=== PATIENT | female | born 2000 | race Caucasian/White ===

== ENCOUNTER 2021-11-09 15:00 | Inpatient (IN) | payer MEDICAID, SELFPAY ==
[2021-11-09 15:29] VITALS: BP 122/80; PULSE 93; RESP 18; TEMP 36.6; O2SAT 94; BMI 38.6
[2021-11-09 15:30] VITALS: BMI 32.3
--- NOTE | 2021-11-09 16:10 | NURSING ---
Admitted to the rehab unit, very pleasant.
[2021-11-09 16:39] VITALS: O2SAT 92
[2021-11-09 19:50] VITALS: BP 140/91; PULSE 132; RESP 16; TEMP 36.9; O2SAT 97
[2021-11-09 22:00] VITALS: PULSE 136
[2021-11-09] MEDS: Sodium Chloride 0.65% 1 SPRAY SPRAY.BTL 2 SPRAY NASAL (22:13)
[2021-11-09] MEDS: Famotidine 20 MG Tablet PO (22:13)
[2021-11-09] MEDS: APIXABAN 5 MG TABLET PO (22:13)
[2021-11-09] MEDS: MELATONIN 3 MG TABLET PO (22:13)
[2021-11-09 22:17] VITALS: BP 122/85; PULSE 136
--- NOTE | 2021-11-09 23:00 | NURSING ---
DR KEMP NOTIFIED OF PT'S COUGH AND NEED FOR COUGH MEDICATION AND THAT SHE STATES SHE HAD [facility]. ORDERS GIVEN.
[2021-11-09] MEDS: guaiFENesin 10 ML UDC (200MG/10ML) PO (23:13)
[2021-11-10 07:55] VITALS: BP 121/59; PULSE 110; RESP 16; TEMP 36.3; O2SAT 96
[2021-11-10] MEDS: Sodium Chloride 0.65% 1 SPRAY SPRAY.BTL 2 SPRAY NASAL ×2 (08:14→21:28)
[2021-11-10] MEDS: Famotidine 20 MG Tablet PO ×2 (08:14→21:23)
[2021-11-10] MEDS: Venlafaxine HCl 75 MG Tablet PO (08:14)
[2021-11-10] MEDS: APIXABAN 5 MG TABLET PO ×2 (08:14→21:24)
--- NOTE | 2021-11-10 10:21 | PCM.HP.STD ---
HPI - General General Date of Admission: 11/09/21 HPI Narrative ALEYDA FERNÁNDEZ, is a 21 YO F with a PMH of obesity and asthma. On 08/03/21 she was admitted to [facility] and diagnosed with COVID 19 PNA. She subsequently developed ARDS. She had acute respiratory failure with hypoxia secondary to COVID-pneumonia/ARDS and was intubated on 08/13/21. She was transferred to [facility] on 08/14/21. She was intubated and mechanically ventilated for a prolonged period necessitating tracheostomy which was done on 09/21/21. She had BL pneumothoraces and had BL chest tubes. 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 She was transferred from [facility] to an LTAC ([facility]) on 10/06/21 but readmitted to [facility] on 10/13/21 for enlarging R pneumothorax. She had been weaned off the vent at [facility] and was on a trach mask from 40% - 80% FIO2). She increasing SOB and cough in CT chest on 10/23/21 showed progressive opacities. She was started on Cefepime/Vanco/Azithromycin and completed a 7 day course. Cefepime caused nausea and she was transitioned to Zosyn to complete the 7 day course. A repeat CXR on 10/30/21 was unchanged and showed persistent BL diffuse airspace disease and a persistent 4.6 x 3.2 cm mass. CTA on 11/01/21 was negative for PE but, showed a mild dilation of the pulmonary trunk consistent with pulmonary HTN. Oxygen requirements have been fluctuating with exercise and she has fibrotic lung disease. She has experienced recurrent pneumothoraces. The most recent chest tube was placed on 10/15/2021 and removed 10/25/2021. She has tachycardia at rest which worsens with even minimal exertion. An ECHO on 10/09 showed a normal EF. Decannulated on 10/23/21 Voriconazole for suspected Aspergillus was stopped on 09/01 because the Aspergillus antigen was only slightly positive and pulmonary felt she had an organizing PNA. CT chest on 10/23/21 showed increasing opacities so she was started on antibiotics. Needs a repeat chest CT in December and this has been scheduled for 01/04/22 at [facility] and will be followed that day by a pulmonary appt. She was treated at [place] with empiric antibiotics, baricitinib, deep sedation, paralytics, proning, remdesivir, inhaled epoprostenol and diuresis. [facility] Medical History (Updated 11/10/21 @ 14:[address] Randa Roblero DO) Anemia C. difficile enteritis DVT (deep venous thrombosis) History of COVID-19 History of malnutrition Hx of recurrent urinary tract infection Obesity Recurrent spontaneous pneumothorax Home Medications apixaban [Eliquis] 5 mg PO BID 11/09/21 [History Last Taken Unknown] famotidine 20 mg PO BID 11/09/21 [History Last Taken Unknown] hydroxyzine HCl 10 mg PO Q4H PRN 11/09/21 [History Last Taken Unknown] melatonin 3 mg PO QHS 11/09/21 [History Last Taken Unknown] simethicone 80 mg PO Q6H PRN 11/09/21 [History Last Taken Unknown] sodium chloride 2 spray INTRANASAL BID 11/09/21 [History Last Taken Unknown] venlafaxine 75 mg PO DAILY 11/09/21 [History Last Taken Unknown] Allergy/AdvReac Type Severity Reaction Status Date / Time No Known Allergies Allergy Verified 11/09/21 16:16 Family History (Updated 11/10/21 @ 11:[address] Randa Roblero DO) Mother Diabetes Grandmother Hypertension Leukemia Surgical History (Updated 11/10/21 @ 13:[address] Randa Roblero DO) History of placement of chest tube History of tracheostomy Social History (Updated 11/10/21 @ 13:[address] Randa Roblero DO) adopted: No household members: significant other housing: house number of children: 0 service: No current occupational status: unemployed history of recent travel: No do you think of yourself as: straight/heterosexual current gender identity: female Smoking Status: Never smoker alcohol intake: former details: rare ETOH prior to COVID infection in July 2021. 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 but this seems to have resolved ; Denies change in vision, diplopia, discharge from eye(s), double vision, itchy eyes or photophobia ENT HEENT: Reports change in voice, ear pain, epistaxis, hoarseness and rhinorrhea; Denies dental pain, dizziness, dysphagia, facial pain, hearing loss, neck pain or throat swelling Cardiovascular Cardiovascular: Reports dyspnea on exertion, easily tiring during activity, rapid heart rate and weakness in extremities; Denies abdominal pain, chest pain, claudication, clubbing, cold extremities, edema, erythema on extremities, leg edema or orthostatic symptoms Respiratory/Chest Respiratory/Chest: Reports cough, dyspnea on exertion and hoarseness; Denies chest tightness, nail bed cyanosis, pain on inspiration or pain with cough Genitourinary Genitourinary: Denies burning urination, difficulty urinating, urinary frequency, urinary hesitancy or urinary urgency Musculoskeletal Musculoskeletal: Reports muscle cramps, muscle weakness and neck pain; Denies radiating pain into limb, tingling or tremors Integumentary Integumentary: Denies alopecia, hirsutism, jaundice or wounds Neurologic Neurologic: Reports headache(s) and weakness; Denies abnormal hearing, abnormal movements, abnormal speech, burning sensations, confusion, dizziness, focal weakness, seizures, sensory deficit or vertigo Psychiatric Psychiatric: Reports depression and other Details: anxiety Told the SW she has been depressed for years but told me she is sleeping well and appetite is pretty good. Denies crying jags. ; Denies hallucinations, homicidal ideation, hopelessness, panic attacks, suicidal ideation or suicidal thoughts Endocrine Endocrinology: Reports deepening of the voice and fatigue Hematologic/Lymphatic Hematologic/Lymphatic: Reports anemia and easy bruising Allergic/Immunologic Allergic/Immunologic: Reports other Details: she has had asthma as a child but grew out of it Denies wheezing now Vital Signs Vital Signs Vital Signs: 11/09/21 15:29 11/09/21 16:39 11/09/21 19:50 Temperature 97.8 F 98.4 F Temperature Source Oral Temporal Pulse Rate 93 132 H Respiratory Rate 18 16 Respiratory Effort Respiratory Depth Respiratory Pattern Blood Pressure 122/80 H 140/91 H Blood Pressure Mean 94 107 Blood Pressure Source Monitor Monitor Blood Pressure Position Sitting Sitting Blood Pressure Location Left Arm Right Arm Pulse Ox 94 92 97 Oxygen Delivery Method Nasal Cannula Room Air Oxygen Flow Rate (L/min) 2 2 11/09/21 22:00 11/09/21 22:17 11/10/21 07:55 Temperature 97.4 F L Temperature Source Oral Pulse Rate 136 H 136 H 110 H Respiratory Rate 16 Respiratory Effort Short of Breath Respiratory Depth Shallow Respiratory Pattern Normal Blood Pressure 122/85 H 121/59 H Blood Pressure Mean 97 79 Blood Pressure Source Monitor Monitor Blood Pressure Position Sitting Semi-Fowlers Blood Pressure Location Right Arm Right Arm Pulse Ox 96 Oxygen Delivery Method Nasal Cannula Nasal Cannula Oxygen Flow Rate (L/min) 2 2 Weight Weight: 232 lb Body Mass Index (BMI) 38.6 Physical Exam Const alert, oriented x3 and no apparent distress Constitutional Narrative: Sitting in the recliner at the bedside. She is wearing O2. Not tachypneic and able to speak in full sentences. Making good eye contact and answering all the questions I ask her. She is upfront and appropriate. Affect is a little flat. General Appearance: cooperative, well kempt and well developed HEENT normocephalic, head/scalp atraumatic, hearing grossly normal bilaterally, external ears normal and EAC's normal HEENT Narrative: TM's are not red and have a good cone of light. There is mild serous otitis. EAC are normal. There is a small amount of cerumen in the ear canals......R>L. The MM are moist. she still has tonsils and there is no erythema or exudates in the posterior pharynx. Head and Scalp: Negative for cyanosis of lips/distal nose Face and Sinus: normal facial exam and other She has some tenderness with percussion of the frontal sinuses. Rhinorrhea is clear with some blood Nose: external nose normal Eyes PERRL, EOMs intact bilaterally, conjunctivae normal, no scleral icterus and normal visual aldana by confrontation General Eye: normal appearance of both eyes; Negative for exophthalmos or proptosis Neck No nuchal rigidity, no lymphadenopathy and No no JVD Neck Narrative: She has some spasm in the trapezius muscles at the trapezius ridge. General: trachea midline and tracheostomy present; Negative for lymphadenopathy or tracheal deviation Thyroid: thyroid normal Carotids: Negative for bruit Chest Chest: symmetrical chest wall rise Resp Resp Narrative: Decreased BS's throughout. Jake decreased in expiration. No wheezing. Crackles in the L base. Not tachypneic at rest. No conversational dyspnea. Coughing intermittently.......sounds moist but she swallows the sputum. Effort and Inspection: able to speak in complete sentences; Negative for respiratory distress or retractions Cardio regular rhythm, S1 normal heart sound, S2 normal heart sound, no murmurs, no rub and no gallops Rate: tachycardic GI normal to inspection, nondistended, normoactive bowel sounds, soft to palpation and non-tender Back/Spine no CVA tenderness and normal to inspection Extremity no calf tenderness and no pedal edema Extremity Narrative: Generalized weakness in all extremities with no focal findings. No sensory loss. General Extremity: no tenderness to palpation of joints or extremities; Negative for clubbing, cyanosis or pallor Skin Skin Narrative: She is pale General Skin Exam: no breakdown Rashes: no rashes Hair: normal Nails: normal Neuro oriented x3, CN's II-XII intact bilaterally, moves all extremities, no focal motor deficits, no sensory deficits noted and gait normal Psych mental status grossly normal, thought process normal, cooperative, speech normal, activity/motor behavior normal, denies hallucinations, denies homicidal ideation and denies suicidal ideation Appearance: grossly normal, appropriate and well kempt Attitude: calm Activity / Motor Behavior: appropriate eye contact; Negative for psychomotor agitation, psychomotor slowing or restless Speech: normal speech Mood & Affect: flat affect Assessment & Plan Assessment/Plan (1) Physical debility: (2) History of COVID-19: (3) Pulmonary fibrosis, postinflammatory: (4) Pulmonary HTN: (5) DVT (deep venous thrombosis): QUALIFIERS: DVT location: lower extremity (6) Chronic anticoagulation: (7) Post-COVID chronic cough: (8) Physical deconditioning: (9) Tachycardia: (10) Mass in chest: (11) Hx of recurrent urinary tract infection: (12) Anxiety with depression: (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 DC the Hydroxyzine.....has not been taking and denies feeling anxious since she has been discharged from the hospital GI prophylaxis with Pepcid 20 mg twice daily DVT prophylaxis not necessary. She is on apixaban 5 mg twice daily for right lower extremity DVT Follow up with pulmonary medicine and PCP following DC from [facility] AM lab including CMP, CBC, Mag and Phos Obtained most recent labs from [facility] Get a PA and LAT CXR so we have something to compare to if she gets more SOB or the cough increases We discussed getting a COVID vaccine with Aleyda and she is agreeable to receiving the vaccine. Will also speak to her boyfriend Flex about getting a vaccine. Aleyda and I talked about her lung function and discussed her current diagnoses. All questions were answered. I am concerned that she was intubated for over 30 days prior to getting a tracheostomy. She is at risk for tracheal stenosis going forward. She certainly may benefit from some counselling - she has been through a prolonged severe illness with many complications and will need to work through this and deal with the LT complications with the lungs post COVID PNA. Appointments postdischarge: 1. Dr. Bill Khan on 01/04/2022 at 1:45 PM in [place] at the lung care [facility] outpatient care 2. PCP will need to find a PCP. SW will give her a list of physicians accepting new patients to choose from. The pt lives in [place]. Unit Exclusion This patient is an acute care inpatient being housed in the excluded unit because of capacity issues related to the disaster or emergency.: Yes Charges/Coding Visit Charges Inpatient E&M: 91094 Init Hosp L3
[2021-11-10 13:58] VITALS: O2SAT 92
--- NOTE | 2021-11-10 14:57 | PCM.RU.PYE ---
Admission Information Primary Diagnosis:: Physical debility secondary to prolonged hospitalization for COVID-19 pneumonia with multiple complications Status Changes from Prescreening?: No changes Identified Actual Problem List:: DVT, Depression, Alteration in Sleep, Alteration in Nutrition, Mobility Impaired, Self Care Deficit, Know.Dfct/Disease Process, Know.Dfct of Medicaitons, Alteration/ Air Exchange and Alteration-Leisure Activ. Potential Problem List:: DVT, Bleeding, Infection, UTI, Aspiration, Falls, Skin Integrity and Depression Risk of Complications DVT: JEWELS Prajapati and - (She is on apixaban 5 mg twice daily for right lower extremity DVT) Bleeding: Monitor Lab Values, Nursing to Teach Precautions for anti-coagulation therapy., Wound, if applicable, to be assessed every shift. and Stroke patients assessed for lethargy or change in status. Infection: Clinical Staff to Monitor for S/S of infection: and S/S of infection include fever, redness, warmth, etc. Urinary Tract Infection: Monitor for frequency, burning, discomfort, or incontinence. and Nursing will obtain urine sample for urinalysis and C&S when ordered. Aspiration: Clinical staff will monitor for coughing, drooling, congestion., Speech will evaluate swallowing and dsyphasia. and Nursing will monitor patient swallowing during meals. Falls: Patient will be evaluated for Fall Precautions and Patient will be placed on Fall Precautions as indicated per protocol. Skin Breakdown: Nursing will assess skin daily using assessment tool. and Nursing will place on Skin Breakdown Precautions as indicated. Pain: Clinical staff will assess patient's pain level per protocol., Medications will be given, if needed, and the pain level reassessed. and Other methods: Massage, distraction, decrease stimulus, etc. used PRN. Plan of Care Patient requires physician specializing in physical medicine and rehab oversight to provide close medical supervision of rehab issues including: Pain Management, Sleep Problems, Bowel and Bladder, Medical and co-morbidity Management, DVT prophylaxis, Rehabilitation Leadership and Coordination of treatment team Patient needs Physical Therapy: For a minimum of 1 hour and At least 5 out of 7 days Patient needs Physical Therapy to improve:: Mobility, Strengthening, Transfers, Stretching, ROM, Endurance, Stairs, Gait and Balance Patient needs Occupational Therapy: For a minimum of 1 hour and At least 5 out of 7 days Patient needs Occupational Therapy to improve ADL's incl.: Eating, Grooming, Bathing, Dressing, Toileting, Toilet transfers, Community Reintegration, Higher functioning activities, Household tasks, Adaptive Equipment, Splinting and Other activities as determined Patient requires speech therapy: For a minimum of 1 hour and At least 5 out of 7 days Patient requires speech therapy for: Swallowing, Cognition, Language Skills and Compensatory Strategies Patient requires 24/ Rehabilitation Nursing for: Pain Issues, Identifying and preventing risk factors, Monitoring and reporting current medical conditions, Assisting with ambulation, transfer, and all ADL's, Teaching patients about disease process and medications, Family teaching, Providing safe environment, Bowel and Bladder Issues, Skin integrity and Medication Management Patient needs Coke Production Heater/ Case Management for: Discharge Planning, Arranging Home Equipment or Services and Family Interventions Patient needs Dietary and Nutrition Services for: Adequate Nutrition, Nutritional Supplements and Nutritional Education Goals Patient will remain: free from falls and or injury at time of discharge. Patient will perform bed mobility at: MOD I level of assist. Patient will complete transfers from bed to chair at: MOD I level of assist. Patient will ambulate: with LRD and - (350 feet at modified) Patient will complete upper body dressing at: MOD I level of assist. Patient will complete lower body dressing at: MOD I level of assist. Patient will complete toileting at: MOD I level of assist. Patient will perform bathing at: MOD I level of assist. Patient will complete grooming at: MOD I level of assist. Patient will complete home management skills at: MOD I level of assist. Patient will achieve: - (1 curb step and 2 regular steps with no handrail at standby assist...with oxygen in tow) Patient will have pain level of: of 3 or less Patient's skin will: remain intact Patient will receive: adequate nutrition. Discharge Planning Pt Prognosis for Sig. Practical Improv. w/in Reasonable Time: Good Estimated Length of stay (days): 21 Anticipated D/C Destination: Home w/ family or friends
[2021-11-10] MEDS: COVID-19 VACC, MRNA(PFIZER)/PF 30 MCG/0.3 ML SYRINGE IM (15:50)
--- NOTE | 2021-11-10 16:33 | CASEMGMT ---
Social Work Met with patient for initial assessment. Pt confirmed full code. Pt on FaceTime with jackeline' during assessment. Explained [employer] insurance with NRD 11/16 and continued stay is not guaranteed with each review. Explained Team meeting and offered for family to attend. Pt reported to having depression her whole life. Inquired for further details - asked pt to explain how she feels. Pt expressed she has lack of motivation to do things, reports normal energy, emotional/stress eating, no reports with trouble sleeping, but enjoys laying on couch watching TV, reports having no friend wrangell and only sometimes hanging out with jackeline's friends. Pt is interested in starting on antidepressant, but would like to talk to the Dr. further. Notified DrTeresa Inquired about having a PCP - pt denied. Provided PCP list and encouraged to select one for her to continue following up with after DC and managing ongoing medical care. Pt agreed. Inquired about any strained relationships. Pt replied, her parents. She explained, it's not that bad, but about a year ago pt decided to leave their zoroastrianism and parents did not approve. Pt started dating her boyfriend and got engaged about three months later (totaling 7 months engaged - no wedding plans at this time). Pt agreed to keep parents listed on contact sheet and to allow them to get medical information. Provided ongoing supportive listening. Offered continued support throughout stay. Pt appreciative. SW to continue to follow for support and DC planning. Niyah Cárdenas, JUN ECONOMIST RESEARCH ASSISTANT
[2021-11-10 17:40] VITALS: O2SAT 95
[2021-11-10 19:35] VITALS: BP 123/62; PULSE 102; RESP 18; TEMP 36.7; O2SAT 97
[2021-11-10] MEDS: Acetaminophen 325 MG Tablet 650 MG PO (20:18)
[2021-11-10] MEDS: MELATONIN 3 MG TABLET PO (21:23)
[2021-11-10] MEDS: guaiFENesin/D-Methorphan TAB.SR.12H 1 TABLET PO (21:23)
[2021-11-10] MEDS: Ipratropium Bromide 0.06% NASAL SPRAY 2 SPRAY NASAL (21:24)
[2021-11-10] MEDS: Arthritis Pain Compound 60 CLICK TUBE TOPICAL (21:26)
[2021-11-10 21:45] VITALS: PULSE 102; RESP 18
--- NOTE | 2021-11-11 03:34 | NURSING ---
Reviewed and agree with POTTERY MACHINE OPERATOR documentation and charting.
[2021-11-11 05:56] LABS: Basophil# 0.03 X10^3/uL; Basophil% 0.6 % (0-1); Eosinophil# 0.23 X10^3/uL; Eosinophils% 4.3 % (0-5); Hematocrit 34.4 % (37-47); Hemoglobin 10.8 g/dL (12.0-15.0); Lymphocyte % 27.8 % (19-41); Mean Corp Hgb Conc 31.4 g/dL (32-36); Mean Corpuscular Hgb 26.1 pg (27.0-32.0); Mean Corpuscular Volume 83.1 fL (81-99); Mean Platelet Vol. 10.2 fl (6.2-12.0); Monocyte# 0.57 X10^3/uL; Monocyte% 10.6 % (0-10); NRBC Flagged by Analyzer 0 % (0-5); Neutrophil # 3.03 X10^3/uL (2.7-7.7); Neutrophil % 56.1 % (47-70); Platelet Count 260 K/mm3 (150-450); RBC Distribution Width CV 14.1 % (11.6-14.6); RBC Distribution Width SD 42.5 fl (35.1-43.9); Red Blood Count 4.14 M/mm3 (4.2-5.4); White Blood Count 5.4 K/mm3 (4.4-11.0)
[2021-11-11 06:32] LABS: ALB/GLOB Ratio 0.9 RATIO (0.9-2.4); AST(SGOT) 25 U/L (15-37); Alanine Aminotransfer ALT/SGPT 57 U/L (13-56); Albumin, Serum 3.2 g/dL (3.2-5.0); Alkaline Phosphatase 40 U/L (45-117); Anion Gap 8 (5-15); BUN 9 mg/dL (7-18); BUN/Creat Ratio 17.6 RATIO (10-20); Chloride 106 mmol/L (98-107); Creatinine, Serum 0.51 mg/dL (0.55-1.02); EST Glomerular Filtration Rate 159 mL/min (>60); Est Glom Filt Rate - Afr Amer 192 mL/min (>60); Estimated Creatinine Clearance 155.69 ml/min; Globulin 3.6 g/dL (2.2-4.2); Glucose 91 mg/dL (74-106); Phosphorus 5.1 mg/dL (2.5-4.9); Potassium 3.6 mmol/L (3.5-5.1); Protein, Total 6.8 g/dL (6.4-8.2); Sodium Level 141 mmol/L (136-145)
[2021-11-11] MEDS: Ipratropium Bromide 0.06% NASAL SPRAY 2 SPRAY NASAL ×3 (06:38→21:43)
[2021-11-11] MEDS: guaiFENesin/Codeine 5 ML UDC PO ×2 (06:43→21:42)
[2021-11-11 07:47] VITALS: BP 117/58; PULSE 69; RESP 18; TEMP 36.5; O2SAT 98
[2021-11-11] MEDS: Acetaminophen 325 MG Tablet 650 MG PO ×2 (08:59→22:07)
[2021-11-11] MEDS: Sodium Chloride 0.65% 1 SPRAY SPRAY.BTL 2 SPRAY NASAL ×2 (09:01→21:42)
[2021-11-11] MEDS: Arthritis Pain Compound 60 CLICK TUBE TOPICAL ×2 (09:02→21:43)
[2021-11-11] MEDS: APIXABAN 5 MG TABLET PO ×2 (09:54→21:43)
[2021-11-11] MEDS: Venlafaxine HCl 75 MG Tablet PO (09:54)
[2021-11-11] MEDS: Famotidine 20 MG Tablet PO (09:55)
[2021-11-11] MEDS: guaiFENesin/D-Methorphan TAB.SR.12H 1 TABLET PO ×2 (09:55→21:43)
[2021-11-11 10:00] VITALS: RESP 18
--- NOTE | 2021-11-11 10:45 | PN_ITS ---
Progress Note AF BP is stable and normal. HR is coming down and was 69 at rest this AM but, still increasing with exercise. She is maintaining a saturation of 98% on 2 LPM at rest.....ill increase to 3-4 when exercising. Good intake yesterday. Slept well last night. She is c/o nausea today....she denies abd pain. the nausea mostly comes with a MAHARAJ. She has no hx of migraines. she has a lot of tenderness in the traps and muscle spasm. I reviewed the therapy notes. No problems from nursing standpoint. All lab was personally reviewed. Kidney function is good and the HGB is 10.8. Physical Exam Const alert, oriented x3 and no apparent distress Constitutional Narrative: Fatigues easily. She is pale. Voice is hoarse and soft. Denies any difficulty swallowing. General Appearance: cooperative HEENT hearing grossly normal bilaterally and moist oral mucous membranes Eyes conjunctivae normal and no scleral icterus Resp Resp Narrative: No accessory muscle use and no tachypnea at rest. Gets SOB with ambulation, brandon with a mask on and the heart rate increases into the 150's - 160's. Tachypneic after exercise but still no accessory muscle use. Decreased air exchange, brandon with expiration......she is pursed lipped with expiration. No wheezing. Few coarse crackles in the left base but otherwise CTA. Effort and Inspection: able to speak in complete sentences Cardio regular rhythm, S1 normal heart sound, S2 normal heart sound, no murmurs, no rub and no gallops Cardio Narrative: no ectopy Rate: tachycardic GI normal to inspection, nondistended, normoactive bowel sounds, soft to palpation and non-tender Extremity no calf tenderness and no pedal edema Extremity Narrative: At the end of the day she has a small amount of edema in the R foot/ankle....this is most likely due to the DVT RLE. I encouraged her to elevate her leg when she is sitting in the chair and continue to wear the JEWELS hose any time she is out of bed or her legs are dependent. Psych mental status grossly normal, thought process normal, cooperative, denies homici mukesh ideation and denies suicidal ideation Psych Narrative: not very emotional......seems reserved. Activity / Motor Behavior: Negative for psychomotor agitation, psychomotor slowing, fidgetting, restless or avoids eye contact Assessment & Plan Assessment/Plan (1) History of COVID-19: (2) Physical debility: PLAN: 1. Add Compazine to the PRN meds for nausea. 2. Continue therapy 3. Check a Hemoccult stool May need to increase the Pepcid to 40 mg BID or transition to a PPI. She also had nausea at [facility] and they though it was due to Cefepime but, it is not unreasonable to suspect she may have stress ulceration. 4. The accurate height was put in and the BMI is actually 32.4 now. 5. Continue the soft collar with therapy until the neck muscles are stronger and can support the weight of her head. She does not have to wear the collar if she is lying down. e Visit Charges Inpatient E&M: 60886 Subs Hosp L2
[2021-11-11 10:57] VITALS: BMI 32.3
[2021-11-11 12:19] VITALS: O2SAT 97
[2021-11-11 16:06] VITALS: O2SAT 96
[2021-11-11 19:33] VITALS: BP 118/78; PULSE 120; RESP 20; TEMP 36.9; O2SAT 95
[2021-11-11] MEDS: MELATONIN 3 MG TABLET PO (21:43)
[2021-11-11 22:00] VITALS: PULSE 103; RESP 18
[2021-11-12] MEDS: Ipratropium Bromide 0.06% NASAL SPRAY 2 SPRAY NASAL ×3 (05:31→22:47)
[2021-11-12 07:40] VITALS: BP 108/58; PULSE 105; RESP 18; TEMP 36.5; O2SAT 97
[2021-11-12 08:03] VITALS: O2SAT 95
--- NOTE | 2021-11-12 08:45 | NURSING ---
pt working with occupational therapy at this time and pt lost balance in room. pt assisted to knees by TALENT MANAGEMENT MANAGER. no injury. Dr. Roblero, Nursing extra gang supervisor, Sallie- unit technician, and family notified of event. pt denies pain or discomfort. vitals taken, stable. will continue to monitor.
[2021-11-12] MEDS: APIXABAN 5 MG TABLET PO ×2 (11:07→22:47)
[2021-11-12] MEDS: Venlafaxine HCl 75 MG Tablet PO (11:07)
[2021-11-12] MEDS: Arthritis Pain Compound 60 CLICK TUBE TOPICAL ×2 (11:07→22:48)
[2021-11-12] MEDS: Sodium Chloride 0.65% 1 SPRAY SPRAY.BTL 2 SPRAY NASAL ×2 (11:08→22:47)
[2021-11-12] MEDS: guaiFENesin/D-Methorphan TAB.SR.12H 1 TABLET PO ×2 (11:08→22:47)
[2021-11-12 11:51] VITALS: BP 153/79; PULSE 153; RESP 20; O2SAT 86
[2021-11-12] MEDS: proCHLORPERazine 5 MG Tablet 10 MG PO (12:36)
[2021-11-12] MEDS: Acetaminophen 325 MG Tablet 650 MG PO (12:36)
--- NOTE | 2021-11-12 13:56 | CASEMGMT ---
Social Work IDT met with patient, fiance' and pt's parents for Team meeting. Discussed patients progress in PT/OT/ST and nursing. Pt progressing well, but apparent deficits. Pt was completely independent and functioning without an AD, O2 or any restrictions prior. The goal is for pt to DC once returned to PLOF and off of O2. Explained [employer] NRD 11/16 and continued stay is not guaranteed. SW to continue to follow for support and DC planning. Will Reteam next week. Niyah Cárdenas, TOBACCO STRIPPER GROUND HAND
[2021-11-12 15:01] VITALS: O2SAT 97
[2021-11-12 19:22] VITALS: BP 137/84; PULSE 113; RESP 18; TEMP 36.7; O2SAT 97
[2021-11-12] MEDS: 0.9% Saline Lock 10 ML Syringe IV ×2 (22:46)
[2021-11-12] MEDS: MELATONIN 3 MG TABLET PO (22:47)
[2021-11-13] MEDS: Ipratropium Bromide 0.06% NASAL SPRAY 2 SPRAY NASAL ×3 (06:23→20:22)
[2021-11-13 07:41] VITALS: BP 123/85; PULSE 118; RESP 22; TEMP 35.9; O2SAT 95
[2021-11-13 08:08] VITALS: O2SAT 89
[2021-11-13] MEDS: guaiFENesin/D-Methorphan TAB.SR.12H 1 TABLET PO ×2 (11:10→20:23)
[2021-11-13] MEDS: APIXABAN 5 MG TABLET PO ×2 (11:10→20:23)
[2021-11-13] MEDS: Sodium Chloride 0.65% 1 SPRAY SPRAY.BTL 2 SPRAY NASAL ×2 (11:10→20:23)
[2021-11-13] MEDS: Arthritis Pain Compound 60 CLICK TUBE TOPICAL ×2 (11:10→20:22)
[2021-11-13] MEDS: Venlafaxine HCl 75 MG Tablet PO (11:10)
--- NOTE | 2021-11-13 11:21 | PN_ITS ---
Progress Note This is a late entry for 11/12/21. Aleyda was seen on team rounds yesterday, 11/12/2021. Her boyfriend Flex and her parents Suzanne and Yakov were present in the room. All questions asked for answered to the family's satisfaction. Aleyda is afebrile and the vital signs are stable. She is tachycardic.......it was worst when she went outside and she thinks it is because she can not breathe well with the mask on and she gets panicky. Good oral intake Aleyda c/o SOB with exertion and when she has the mask on. The nausea has improved with the Protonix 40 mg IV BID. She is also c/o MAHARAJ and neck pain. The neck pain is better with the arthritic cream. Physical Exam Const alert, oriented x3 and no apparent distress Constitutional Narrative: she is hoarse and voice not projecting well. Fatigues easily and therapy is gradually increasing her activity. Desaturated to low 80's and HR went up to 200 while she had the mask on to go outside. she improved when the mask was removed once she was outside.......it is harder for her to breathe when the mask is on her face. She is somewhat pale. General Appearance: cooperative, well kempt and well developed Nutritional Appearance: obese HEENT hearing grossly normal bilaterally and moist oral mucous membranes Eyes conjunctivae normal and no scleral icterus Chest Chest: symmetrical chest wall rise Resp Resp Narrative: Not tachypneic at rest and she is able to speak in complete sentences. + coarse persistent crackles in the left base. decreased air exchange but no wheezing. No retractions and no tripoding......even with exertion while in doors with the mask on Cardio regular rhythm, S1 normal heart sound, S2 normal heart sound, no murmurs, no rub and no gallops Rate: tachycardic GI normal to inspection, nondistended, normoactive bowel sounds, soft to palpation and non-tender Extremity no calf tenderness and no pedal edema Skin General Skin Exam: no breakdown Rashes: no rashes Psych Psych Narrative: She is soft spoken and a little flat but very pleasant and cooperative. she makes good eye contact. Assessment & Plan Assessment/Plan (1) History of COVID-19: (2) Chronic anticoagulation: (3) Physical deconditioning: (4) Tachycardia: (5) Mass in chest: (6) Anxiety with depression: (7) DVT (deep venous thrombosis): QUALIFIERS: DVT location: lower extremity (8) Pulmonary HTN: (9) Pulmonary fibrosis, postinflammatory: (10) Physical debility: PLAN: 1. Continue therapy. 2. Consider starting a cardioselective beta kasey to better control HR and improve exercise tolerance. 3. OK to take the mask off when she is inside. 4. Effexor XR increased to 150 mg Q AM for tx of anxiety and long standing depression that preceded the COVID infx. there is some discord in the family about her BF Flex and she has been living with Flex and his parents rather than her family because of the this. 5. Follow up with pulmonology post DC. She would rather be seen in [place] rather than have to go to [facility]. Dr. Lee is willing to take her on as a pt. Visit Charges Inpatient E&M: 06064 Subs Hosp L2
[2021-11-13] MEDS: Acetaminophen 325 MG Tablet 650 MG PO ×2 (12:07→20:30)
[2021-11-13] MEDS: MELATONIN 3 MG TABLET PO (20:23)
[2021-11-13 20:25] VITALS: BP 133/52; PULSE 108; RESP 20; TEMP 36.6; O2SAT 98
[2021-11-14] VITALS (7 sets, daily range): BP systolic 109–122; BP diastolic 67; PULSE 100–129; RESP 18–20; TEMP 35.9–36.6; O2SAT 94–99
[2021-11-14] MEDS: Ipratropium Bromide 0.06% NASAL SPRAY 2 SPRAY NASAL ×3 (06:27→22:26)
[2021-11-14] MEDS: Venlafaxine HCl 75 MG Tablet PO (07:55)
[2021-11-14] MEDS: Arthritis Pain Compound 60 CLICK TUBE TOPICAL ×2 (07:55→22:27)
[2021-11-14] MEDS: Sodium Chloride 0.65% 1 SPRAY SPRAY.BTL 2 SPRAY NASAL ×2 (07:55→22:25)
[2021-11-14] MEDS: APIXABAN 5 MG TABLET PO ×2 (07:55→22:27)
[2021-11-14] MEDS: guaiFENesin/D-Methorphan TAB.SR.12H 1 TABLET PO ×2 (07:55→22:27)
[2021-11-14] MEDS: Pantoprazole Sodium 40 MG Tablet PO (09:34)
[2021-11-14] MEDS: MELATONIN 3 MG TABLET PO (22:27)
[2021-11-15] MEDS: Ipratropium Bromide 0.06% NASAL SPRAY 2 SPRAY NASAL ×3 (05:09→20:50)
[2021-11-15] MEDS: Sodium Chloride 0.65% 1 SPRAY SPRAY.BTL 2 SPRAY NASAL ×2 (07:32→20:51)
[2021-11-15] MEDS: APIXABAN 5 MG TABLET PO ×2 (07:33→20:50)
[2021-11-15] MEDS: guaiFENesin/D-Methorphan TAB.SR.12H 1 TABLET PO ×2 (07:33→20:51)
[2021-11-15] MEDS: Arthritis Pain Compound 60 CLICK TUBE TOPICAL ×2 (07:33→20:50)
[2021-11-15] MEDS: Pantoprazole Sodium 40 MG Tablet PO (07:33)
[2021-11-15] MEDS: Venlafaxine HCl 75 MG Tablet PO (07:34)
[2021-11-15 08:03] VITALS: BP 119/73; PULSE 100; RESP 18; TEMP 37.1; O2SAT 98
[2021-11-15 08:05] VITALS: O2SAT 95
--- NOTE | 2021-11-15 12:09 | PCM.PN.BLA ---
Progress Note Afebrile VSS - BP is WNL Maintaining appropriate oxygen saturation on RA Oral intake is good Discussed with nursing - no problems that need addressed Reviewed the PT/OT/ST notes. HR up to 147 with exercise yesterday. HR at rest hovers around 100. Today she feels like the HR increase has been blunted by the Metoprolol. She denies lightheadedness. Denies neck pain or MAHARAJ. Medication list reviewed. No calf pain, lightheadedness, No cephalgia, no nausea, no hemoptysis. The cough is less......increased yesterday and had more mucous after eating an ice cream sandwich. Less hoarse today and the voice is stronger and projecting better. Physical Exam Const alert, oriented x3 and no apparent distress General Appearance: cooperative and comfortable HEENT moist oral mucous membranes Eyes conjunctivae normal and no scleral icterus Neck Neck Narrative: no pain with palpation of the shoulders/trapezius ridge today. Holding her head upright and she is standing straight up when ambulating today. General: trachea midline; Negative for anterior neck swelling Chest Chest: symmetrical chest wall rise Resp Resp Narrative: Better air exchange than at admission....brandon with expiration. No wheezing. very minimal crackles in the left base now...... they do not go away after several deep breaths. No conversational dyspnea. Not tachypneic at rest. Cardio regular rhythm, no murmurs, no rub and no gallops Rate: tachycardic GI normal to inspection, nondistended, normoactive bowel sounds, soft to palpation and non-tender Extremity no calf tenderness and no pedal edema Skin General Skin Exam: no breakdown Rashes: no rashes Psych mental status grossly normal and thought process normal Psych Narrative: smiling and pleasant. Appearance: appropriate Activity / Motor Behavior: Negative for psychomotor agitation, psychomotor slowing, fidgetting, hyperactive, disorganized or restless Speech: normal speech Mood & Affect: constricted affect Assessment & Plan Assessment/Plan (1) Chronic anticoagulation: (2) History of COVID-19: (3) Post-COVID chronic cough: (4) Tachycardia: (5) Physical deconditioning: (6) Anxiety with depression: (7) DVT (deep venous thrombosis): QUALIFIERS: DVT location: lower extremity (8) Physical debility: (9) Pulmonary HTN: (10) Pulmonary fibrosis, postinflammatory: PLAN: 1. Continue the Metoprolol.......she felt less SOB with ambulating today. PT will check the pulse ox with exertion and also the HR. 2. Recheck an HH in the AM 3. Follow up with Pulmonary as OP 4. Visit Charges Inpatient E&M: 14402 Subs Hosp L1
[2021-11-15 14:25] VITALS: BP 110/78; PULSE 117
[2021-11-15] MEDS: Metoprolol Tartrate 25 MG Tablet PO (14:25)
[2021-11-15 19:21] VITALS: BP 120/64; PULSE 118; RESP 17; TEMP 36.1; O2SAT 96
[2021-11-15 20:33] VITALS: PULSE 108; RESP 20
[2021-11-15] MEDS: MELATONIN 3 MG TABLET PO (20:51)
[2021-11-16] MEDS: Ipratropium Bromide 0.06% NASAL SPRAY 2 SPRAY NASAL ×3 (05:41→21:57)
[2021-11-16 06:57] VITALS: BP 144/77; PULSE 123
[2021-11-16] MEDS: Metoprolol Tartrate 25 MG Tablet PO ×2 (06:57→15:31)
[2021-11-16 07:42] VITALS: BP 115/71; PULSE 123; RESP 24; TEMP 36.2; O2SAT 91
[2021-11-16] MEDS: APIXABAN 5 MG TABLET PO ×2 (09:03→21:57)
[2021-11-16] MEDS: Pantoprazole Sodium 40 MG Tablet PO (09:03)
[2021-11-16] MEDS: guaiFENesin/D-Methorphan TAB.SR.12H 1 TABLET PO ×2 (09:03→21:57)
[2021-11-16] MEDS: Sodium Chloride 0.65% 1 SPRAY SPRAY.BTL 2 SPRAY NASAL ×2 (09:03→21:57)
[2021-11-16] MEDS: Arthritis Pain Compound 60 CLICK TUBE TOPICAL ×2 (09:03→21:56)
[2021-11-16] MEDS: Venlafaxine XR 150 MG Capsule PO (09:06)
--- NOTE | 2021-11-16 14:09 | CASEMGMT ---
Addendum entered by Niyah Cárdenas 11/18/21 14:26: Received call from [facility] that they do not have cane in stock and will not arrive in time to order for pt DC. Spoke with [facility] and they have a cane in stock. Faxed script. Spoke with pt and updated her for family to lemon picker cane prior to DC. Pt expressed understanding. Addendum entered by Niyah Cárdenas 11/17/21 15:48: Pt requiring cane - referred to [facility], and left AFO for foot drop - referred to [facility]. Addendum entered by Niyah Cárdenas 11/16/21 15:08: Referral made to [facility] and [facility] for the O2. Original Note: Social Work Discussed pts progress with Team and pts request to DC 11/19. Team agreeable. states pt would DC home with O2 and recommending outpatient therapy. Met with patient about request to DC 11/19 and IDT agreeable. Pt agreeable to complete outpatient PT/OT/ST at [email or web address]. Will determine DME needs if pt is safely able to transition to cane from walker. SW to order O2 at home. Pt expressed understanding. Plan: DC home 11/19 with O2, [email or web address] PT/OT/ST JUN [facility]
[2021-11-16 14:51] VITALS: O2SAT 97
[2021-11-16 15:31] VITALS: PULSE 113
--- NOTE | 2021-11-16 18:24 | NURSING ---
Reviewed and agree with [facility] charting and documentation
[2021-11-16 19:18] VITALS: BP 118/70; PULSE 108; RESP 20; TEMP 36.1
[2021-11-16] MEDS: MELATONIN 3 MG TABLET PO (21:57)
[2021-11-16 22:00] VITALS: PULSE 109; RESP 20
[2021-11-17] MEDS: Ipratropium Bromide 0.06% NASAL SPRAY 2 SPRAY NASAL ×3 (05:55→20:20)
[2021-11-17 06:00] VITALS: PULSE 100
[2021-11-17] MEDS: Metoprolol Tartrate 25 MG Tablet PO ×2 (06:00→15:39)
[2021-11-17 06:05] LABS: Hematocrit 36.4 % (37-47); Hemoglobin 11.3 g/dL (12.0-15.0)
[2021-11-17 07:19] VITALS: BP 105/64; PULSE 100; RESP 16; TEMP 36.4; O2SAT 97
[2021-11-17] MEDS: Pantoprazole Sodium 40 MG Tablet PO (07:44)
[2021-11-17] MEDS: Venlafaxine XR 150 MG Capsule PO (07:44)
[2021-11-17] MEDS: guaiFENesin/D-Methorphan TAB.SR.12H 1 TABLET PO ×2 (07:44→20:22)
[2021-11-17] MEDS: APIXABAN 5 MG TABLET PO ×2 (07:44→20:21)
[2021-11-17] MEDS: Sodium Chloride 0.65% 1 SPRAY SPRAY.BTL 2 SPRAY NASAL ×2 (07:44→20:22)
[2021-11-17] MEDS: Arthritis Pain Compound 60 CLICK TUBE TOPICAL ×2 (08:02→20:20)
[2021-11-17 09:13] VITALS: O2SAT 97
[2021-11-17 15:39] VITALS: BP 123/60; PULSE 103
[2021-11-17] MEDS: MELATONIN 3 MG TABLET PO (20:22)
[2021-11-17 20:32] VITALS: BP 123/60; PULSE 109; RESP 20; TEMP 36.7; O2SAT 96
[2021-11-17 20:36] VITALS: PULSE 109; RESP 20
[2021-11-18] VITALS (7 sets, daily range): BP systolic 100–108; BP diastolic 48–54; PULSE 73–105; RESP 15–18; TEMP 35.9–36.6; O2SAT 94–99
[2021-11-18] MEDS: Ipratropium Bromide 0.06% NASAL SPRAY 2 SPRAY NASAL ×3 (06:52→20:53)
[2021-11-18] MEDS: Metoprolol Tartrate 25 MG Tablet PO ×2 (06:55→15:05)
[2021-11-18] MEDS: Pantoprazole Sodium 40 MG Tablet PO (09:13)
[2021-11-18] MEDS: Sodium Chloride 0.65% 1 SPRAY SPRAY.BTL 2 SPRAY NASAL ×2 (09:13→20:54)
[2021-11-18] MEDS: Arthritis Pain Compound 60 CLICK TUBE TOPICAL ×2 (09:13→20:54)
[2021-11-18] MEDS: APIXABAN 5 MG TABLET PO ×2 (09:13→20:54)
[2021-11-18] MEDS: Venlafaxine XR 150 MG Capsule PO (09:13)
[2021-11-18] MEDS: guaiFENesin/D-Methorphan TAB.SR.12H 1 TABLET PO ×2 (09:13→20:54)
--- NOTE | 2021-11-18 12:52 | PN_ITS ---
Progress Note Afebrile VSS-the heart rate has improved with the addition of metoprolol to her drug regimen and her heart rate today is in the 90s. HR is in the 130's now with exercise and not 147-200 as it was earlier in the admission. Maintaining appropriate oxygen saturation on 2 LPM at rest and we increase to 4 LPM with exercise and yesterday the pulse ox with exercise was 96%. Oral intake is good Discussed with nursing - no problems that need addressed Reviewed the PT/OT/ST notes Medication list reviewed. No complaints today and she feels less SOB with exertion since the beta kasey was started. No CP and the cough is much improved. It increases and so do the secretions when she eats dairy. Physical Exam Const alert, oriented x3, no apparent distress and well nourished Constitutional Narrative: smiling, making good eye contact. Excited about going home tomorrow. General Appearance: cooperative and comfortable HEENT moist oral mucous membranes Eyes PERRL, EOMs intact bilaterally, conjunctivae normal and no scleral icterus Resp Resp Narrative: Normal respiratory effort at rest. Better air exchange since admission. She is able to speak in complete sentences at rest and is not tachypneic. Appears comfortable on 2 L/min of nasal O2. Trace crackles in the left base but otherwise clear to auscultation. Infrequent cough. Cardio regular rate, regular rhythm, no murmurs, no rub and no gallops Rate: other Other Details: Tachycardic with exertion but this is improved since admission. GI normal to inspection, nondistended, normoactive bowel sounds, soft to palpation and non-tender GI Narrative: No guarding with palpation and denies nausea. Extremity no calf tenderness Extremity Narrative: Trace edema of the right foot, more likely than not secondary to known DVT for which she is on apixaban. General Extremity: Negative for clubbing or cyanosis Skin General Skin Exam: no breakdown Rashes: no rashes Psych mental status grossly normal, thought process normal and cooperative Activity / Motor Behavior: appropriate eye contact; Negative for psychomotor bradley tation or psychomotor slowing Speech: normal speech Mood & Affect: other smiling and more outgoing and talkative than at admission to the rehab unit Assessment & Plan Assessment/Plan (1) Chronic anticoagulation: (2) History of COVID-19: (3) Physical deconditioning: (4) Tachycardia: (5) Anxiety with depression: (6) DVT (deep venous thrombosis): QUALIFIERS: DVT location: lower extremity (7) Pulmonary fibrosis, postinflammatory: (8) Physical debility: PLAN: Plan DC home tomorrow. Home O2 has been arranged by the SW. Will need ongoing therapy. Follow up with pulmonary medicine. Needs a venous US of the RLE post DC to determine if the clot is still there.......sometime in December so she has at least 3 months of anticoagulation. Continue the Effexor at 150 mg XR daily for at least 6 months and then can taper if she is doing well. Visit Charges Inpatient E&M: 80857 Subs Hosp L2
--- NOTE | 2021-11-18 14:50 | DCINST_ITS ---
Discharge Instructions Diet Discharge Diet: - (Regular diet. No added salt on any foods. The salt will increase swelling in the lungs and cause fluid retention which will make the breathing harder. Keeping your weight down will also make it easier for you to breath, brandon with exertion. ) Activity Discharge Activity: May Not Drive, May Shower and - (You must keep active.......do some exercise every day. This will help your heart and lungs function better and you will have better exercise tolerance. You must balance rest and exercise. ) May resume sexual activity in: - (When you are ready. Take your time.......your lungs are not what they used to be and it may be uncomfortable and anxiety provoking if you are not completely ready. ) Weight Bearing Status: Full weight bearing Lifting Restrictions: no more than 5-10 lbs Keep extremity elevated above heart level: Right Leg Additional Activity Instructions:: the blood clots are causing some swelling of the R foot and keeping it elevated when you are sitting will help control the swelling. So will the white stockings. Dressing / Incision Call your doctor if you observe: Fever of 101 or Higher, Inability to urinate, Inability to have a bowel movement, Shortness of breath (shortness of breath worse than what is your baseline now. ), Dizziness, Fainting spells, Swelling in the ankles, Chest pain, Increased palpitations (irregular heartbeat), Calf discomfort and - (Call your family doctor if any unusual bleeding such as bleeding from the gums, blood from the anus, blood in the urine, nose bleeds, large bruises or bleeding from the vagina if female. ) Follow Up Care Please Follow Up With: PCP When: within 7-10 days after DC. Test Results: Test results from this visit will be discussed in further detail at your follow-up appointment, if applicable. Pending Tests Upon Discharge: none Discharge Plan Admission Admit Date/Time: 11/09/21 15:00 Primary Reason for Your Visit: DEbility due to COVID PNA with prolonged intubation and hospitalization. Attending Provider: Randa Roblero Instructions Patient Instructions: Pulmonary Fibrosis, Chronic Lung Disease Nutrition Additional Instructions / Restrictions: 1. Do not be in a carter to get back to the place you were prior to COVID. Do the exercises given to you by the therapists at least once a day. Balance rest and exercise. Your lungs have been affected by the virus and all the inflammation you had. If you get tired or short of breath take a break and then start again. 2. It is very important that you follow up with a lung specialist. We have made an appt for you to see Dr. Ric Lee at the hospital here. He is a lung specialist and he also works in the ICU so he has taken care of many post COVID patients with lung problems. The last CT chest you had showed a mass on the R side......I suspect this is just a clump of scar tissue but, it needs to be followed with additional CT's to make sure it is not changing. 3. You had the first COVID vaccine. You will need a second shot and the date should be on the card you received. 6 months after the second shot you will need a booster. When you have lung disease even a cold can land you in the hosp ital so STAY AWAY from sick people. Always wear a mask when you are out in public. There are vaccines for the flu and also a vaccine for Pneumococcal pneumonia (Pneumovax). I recommend you get them because if you get the flu or pneumonia you will more than likely need to be admitted to the hospital. Dr. Lee and Dr. Mendoza (PCP) will likely discuss this with you also. 4. You have pulmonary fibrosis and the BP in your lungs is high. Fibrosis is scarring and it is not reversible.....you have to learn how to live within your limits and wear oxygen now. 5. Excess weight puts a strain on your lungs so stay at a healthy weight. Dairy tens to make more mucous and this can obstruct the airways making it harder to breath. If you have increased sputum with dairy you may want to limit the amount of dairy products you consume. Small meals are better than large meals because when you eat blood gets diverted to your GI tract to digest the food and it takes blood flow away from the heart and lungs.......this can make a difference when your lungs have been damaged. Sometimes these things seem crazy or insignificant but, little things can make a big difference when you struggle to breath. 6. You are a medication called Effexor. It is to treat anxiety and depression and it can help with weight loss also. You have been through a lot and your life is going to be different when you return home. I think you would benefit from some counselling to help you deal with chronic disease and help you process through everything that happened to you. Plan on taking Effexor (also called venlafaxine) for 6 months and then if you are doing well and feel like you want to try getting off medication you can discuss tapering the dose down with your PCP. 7. you are a strong woman Aleyda to have come through all this. Stay strong and stay healthy! If you have any questions after you leave rehab please do not hesitate to call me at OFFICE [phone] CELL [phone] Discharge Orders/Prescriptions Prescriptions: New Arthritis Pain Compound 3 click topical BID Qty: 0 RF: 0 acetaminophen [Tylenol] 325 mg Tablet 650 mg PO Q6H PRN PRN (Reason: Pain Score 1-10) Qty: 0 RF: 0 venlafaxine 150 mg Capsule,Extended Release 24hr 150 mg PO DAILY Qty: 60 RF: 0 Mucus DM 30-600 mg Tablet Extended Release 12 Hr 1 tab PO BID Qty: 60 RF: 0 metoprolol tartrate 25 mg Tablet 25 mg PO BID@0700,1500 Qty: 60 RF: 0 pantoprazole 40 mg Tablet,Delayed Release (Dr/Ec) 40 mg PO DAILY Qty: 30 RF: 0 ipratropium bromide 42 mcg (0.06 %) [place],Non-Aerosol 2 spray NASAL TID PRN (Reason: Nasal Congestion) Qty: 1 RF: 0 multivitamin with iron Tablet 1 tab PO DAILY Qty: 30 RF: 2 Continued sodium chloride 0.65 % Mist 2 spray INTRANASAL BID RF: 0 melatonin 3 mg Tablet 3 mg PO QHS Qty: 30 RF: 0 Eliquis 5 mg Tablet 5 mg PO BID Qty: 60 RF: 0 Discontinued hydroxyzine HCl 10 mg Tablet 10 mg PO Q4H PRN (Reason: anxiety or itching) RF: 0 simethicone 80 mg Tablet 80 mg PO Q6H PRN (Reason: Gas) RF: 0 venlafaxine 75 mg Tablet 75 mg PO DAILY RF: 0 famotidine 20 mg Tablet 20 mg PO BID RF: 0 Referrals / Follow Up: Ric Lee DO [STAFF PHYSICIAN] - 12/15/21 7:15 am Darrell Mendoza MD [STAFF PHYSICIAN] - 12/25/21 8:00 am Disposition Disposition (needs filled in before D/C Order can be placed): Home, Self Care
[2021-11-18] MEDS: MELATONIN 3 MG TABLET PO (20:54)
[2021-11-19 06:26] VITALS: BP 115/57; PULSE 97
[2021-11-19 06:27] VITALS: BP 115/57; PULSE 97
[2021-11-19] MEDS: Metoprolol Tartrate 25 MG Tablet PO (06:27)
[2021-11-19 08:04] VITALS: BP 115/57; PULSE 97; RESP 16; TEMP 36.6; O2SAT 94
[2021-11-19 08:30] VITALS: O2SAT 94
[2021-11-19] MEDS: Arthritis Pain Compound 60 CLICK TUBE TOPICAL (08:41)
[2021-11-19] MEDS: guaiFENesin/D-Methorphan TAB.SR.12H 1 TABLET PO (08:41)
[2021-11-19] MEDS: Venlafaxine XR 150 MG Capsule PO (08:41)
[2021-11-19] MEDS: APIXABAN 5 MG TABLET PO (08:41)
[2021-11-19] MEDS: Sodium Chloride 0.65% 1 SPRAY SPRAY.BTL 2 SPRAY NASAL (08:41)
[2021-11-19] MEDS: Pantoprazole Sodium 40 MG Tablet PO (08:41)
--- NOTE | 2021-11-19 09:49 | DS.PCM_ITS ---
Providers Date of Admission: 11/09/21 Date of Discharge: 11/19/21 Primary Care Physician: Dr. Lane Mendoza Reason For Visit: Debility due to COVID pneumonia with pronged intub Diagnosis Discharge Diagnosis (1) Physical debility: Status: Acute Code(s): R53.81 - Other malaise Plan: Continue PT/OT/ST as an OP (2) History of COVID-19: Status: Acute Code(s): Z86.16 - Personal history of COVID-19 Plan: Admitted to hospital on 08/03/21 (3) Acute respiratory failure due to COVID-19: Status: Acute Code(s): U07.1 - COVID-19; J96.00 - Acute respiratory failure, unspecified whether with hypoxia or hypercapnia Plan: Required intubation. (4) History of tracheostomy: Status: Inactive Code(s): Z98.890 - Other specified postprocedural states Plan: Tracheostomy was done > 40 days following intubation. 09/21/21 (5) History of pneumothorax: Status: Acute Code(s): Z87.09 - Personal history of other diseases of the respiratory system Plan: Multiple with chest tubes each time. (6) Recurrent pneumothorax after chest tube removed: Status: Acute Code(s): J95.811 - Postprocedural pneumothorax (7) Pulmonary fibrosis, postinflammatory: Status: Acute Code(s): J84.10 - Pulmonary fibrosis, unspecified (8) Pulmonary HTN: Status: Acute Code(s): I27.20 - Pulmonary hypertension, unspecified Plan: Mild dilatation of the pulmonary trunk see on a CT scan of the chest. (9) Hypoxemic respiratory failure, chronic: Status: Chronic Code(s): J96.11 - Chronic respiratory failure with hypoxia Plan: On 2 LPM of O2 at rest ad 4 LPM with exertion at the time of DC from acute rehab. (10) DVT (deep venous thrombosis): Status: Acute Code(s): I82.409 - Acute embolism and thrombosis of unspecified deep veins of unspecified lower extremity Qualifiers: DVT location: lower extremity Plan: On Apixaban 5 mg BID. DVT is in the RLE. (11) Chronic anticoagulation: Status: Acute Code(s): Z79.01 - watermaster (current) use of anticoagulants (12) Mass in chest: Status: Acute Code(s): R22.2 - Localized swelling, mass and lump, trunk Plan: Mass in the RLL, etiology uncertain. Aspergillus was ruled out at [facility]. suspect a mass of fibrotic lung tissue +/- infiltrate. (13) Hx of recurrent urinary tract infection: Status: Acute Code(s): Z87.440 - Personal history of urinary (tract) infections Plan: Due to Pseudomonas infection and more likely than not to Izquierdo catheter presence. No UTI while in acute rehab. (14) Tachycardia: Status: Acute Code(s): R00.0 - Tachycardia, unspecified Plan: With the addition of Metoprolol the HR at rest is now in the 90-105 range, down from 130-140. Depending on the amount of exertion the HR increases to 130's to 150's. It has been as high as 200 prior to the Metoprolol and she has better exercise tolerance since the medication was started. (15) Anxiety with depression: Status: Acute Code(s): F41.8 - Other specified anxiety disorders Plan: Continue Effexor XR 150 mg daily. She was depressed prior to COVID infection and on no medication. Would like benefit from counselling. (16) Physical deconditioning: Status: Acute Code(s): R53.81 - Other malaise Plan: Due to 4 month stay in either the hospital or an LTAC prior to coming to acute rehab. (17) Cranial neuropathy: Status: Suspected Code(s): G62.9 - Polyneuropathy, unspecified Plan: Ophthalmoplegia and exotropia of the right eye. I do not detect this any longer on my physical exam. 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 (21) Post-COVID chronic cough: Status: Acute Code(s): R05.3 - Chronic cough; U09.9 - Post COVID-19 condition, unspecified (22) Acquired left foot drop: Status: Acute Code(s): M21.372 - Foot drop, left foot Plan: We have been PERLA wrapping the Left foot into dorsiflexion to prevent her dragging her toe and tripping. Medications at Discharge Home Medications sodium chloride 2 spray INTRANASAL BID 11/09/21 Arthritis Pain Compound 3 click TOPICAL BID #0 11/19/21 Eliquis 5 mg PO BID #60 tab 11/19/21 acetaminophen [Tylenol] 650 mg PO Q6H PRN PRN #0 tab 11/19/21 albuterol sulfate 2 puff INHALATION Q6H PRN #8.5 g 11/19/21 dextromethorphan-guaifenesin [Mucus DM] 1 tab PO BID #60 tab 11/19/21 ipratropium bromide 2 spray NASAL TID PRN #1 ml 11/19/21 melatonin 3 mg PO QHS #30 tab 11/19/21 metoprolol tartrate 25 mg PO BID@0700,1500 #60 tab 11/19/21 multivitamin with iron 1 tab PO DAILY #30 tab 11/19/21 pantoprazole 40 mg PO DAILY #30 tab 11/19/21 venlafaxine 150 mg PO DAILY #60 cap 11/19/21 Hospital Course Operations None Procedures None Summary of Care Provided Minutes Spent on Discharge: 45 Hospital Course: ALEYDA FERNÁNDEZ, is a 21 YO F with a PMH of obesity and asthma. On 08/03/21 she was admitted to [facility] and diagnosed with COVID 19 PNA. She subsequently developed ARDS. She had acute respiratory failure with hypoxia secondary to COVID-pneumonia/ARDS and was intubated on 08/13/21. She was treated at [facility] with empiric antibiotics, baricitinib, deep sedation, paralytics, proning, remdesivir, inhaled epoprostenol and diuresis. She was transferred to [facility] on 08/14/21. She was intubated and mechanically ventilated for a prolonged period necessitating tracheostomy which was done on 09/21/21. She had BL pneumothoraces and had BL chest tubes. 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 She was transferred from [facility] to an LTAC ([facility]) on 10/06/21 but readmitted to [facility] on 10/13/21 for enlarging R pneumothorax. She had been weaned off the vent at [facility] and was on a trach mask from 40% - 80% FIO2). She exerienced increasing SOB and cough and a CT chest on 10/23/21 showed progressive opacities. She was started on Cefepime/Vanco/Azithromycin and completed a 7 day course. Cefepime caused nausea and she was transitioned to Zosyn to complete the 7 day course. A repeat CXR on 10/30/21 was unchanged and showed persistent BL diffuse airspace disease and a persistent 4.6 x 3.2 cm mass in the RLL. CTA on 11/01/21 was negative for PE but, showed a mild dilation of the pulmonary trunk consistent with pulmonary HTN. Oxygen requirements have been fluctuating with exercise and she has fibrotic lung disease. She has experienced recurrent pneumothoraces. The most recent chest tube was placed on 10/15/2021 and removed 10/25/2021. She has tachycardia at rest which worsens with even minimal exertion. An ECHO on 10/09 showed a normal EF. Aleyda was transferred to the acute inpt rehab unit at [facility] on 11/09/21 for 3 hours of therapy daily to restore function.independence as close to [facility] [place] [facility] to [facility] as possible. Decannulated on 10/23/21 Voriconazole for suspected Aspergillus was stopped on 09/01 because the Aspergillus antigen was only slightly positive and pulmonary felt she had an organizing PNA. CT chest on 10/23/21 showed increasing opacities so she was started on a ntibiotics. Needs a repeat chest CT in December and this has been scheduled for 01/04/22 at [facility] and will be followed that day by a pulmonary appt. She was treated at [facility] with empiric antibiotics, baricitinib, deep sedation, paralytics, proning, remdesivir, inhaled epoprostenol and diuresis. Aleyda worked hard in therapy. When she first came to us her resting HR was in the 130-150 range and with exertion increased significantly, as high as 200 sometimes. The oxygen saturation remained in the 90s on 2 L/min of nasal O2 while she was at rest but she required 4 to 5 L with exertion. She was started on Metoprolol to help with the HR and she noticed a difference in her ability to exercise almost immediately. Her HR at rest at DC is 90-105 and with exertion it increases to 130-147, depending on the level of exertion. She had nausea and some reflux and Pepcid was changed to Protonix. The reflux resolved but she continued to have nausea.....usually associated with MAHARAJ. The MAHARAJ was associated with neck pain and trapezius spasms which were due to weakness in the neck muscles from being in bed for so long. A compounded arthritis cream was applied to the neck and traps TID and this helped. She was given a soft collar to help support the neck when she was upright and the MAHARAJ's resolved. Prior to discharge Aleyda was able to do 8 sit to stands in 30 seconds. She was able to do the tug test in 13.47 seconds without an assistive device. She had ambulated 200 feet off the rehab unit with a straight cane at contact-guard assist on various surfaces with her O2 at 4 LPM. We have been wrapping the Left foot into dorsiflexion when she is ambulating to compensate for foot drop. She was able to ascend/descend 2 steps with no handrail at standby assist but was a little unsteady. She can ascend/descend 5 steps with 2 handrails at contact-guard assist. Aleyda is independent with eating and grooming. She is supervision/set up with upper and lower body dressing. She is standby assist with toilet transfer, toileting and tub/shower transfer. Appts were scheduled for Dr. Ric Lee from pulmonary and Dr. Lane Mendoza for primary care prior to DC. She had an appt with Dr. Bill Kebede on 01/04/22 in [place] but, she prefers not to travel to [place]. Home oxygen was arranged by the prior to DC and she also set up therapy as an OP at [facility]. Physical Exam Const alert, oriented x3 and no apparent distress Constitutional Narrative: Making good eye contact. General Appearance: cooperative and well developed HEENT head/scalp atraumatic and moist oral mucous membranes Neck No nuchal rigidity, no lymphadenopathy and no carotid bruits Neck Narrative: The trach site is closed with a small scab over the opening Chest Chest: symmetrical chest wall rise Resp no retractions and no use of accessory muscles Resp Narrative: fair air exchange. No wheezing. Persistent crackles in the RLL posteriorly. Not tachypneic at rest and able to speak in complete sentences. Hoarseness has improved. Voice is still soft but she can speak louder.....I think she is soft spoken at baseline. Effort and Inspection: able to speak in complete sentences Cardio regular rhythm, S1 normal heart sound, S2 normal heart sound, no murmurs, no rub, no gallops and no JVD Cardio Narrative: No ectopy. HR was in the 90's while I was examining her and she was lying in bed at the time. Rate: tachycardic GI normal to inspection, nondistended, normoactive bowel sounds, soft to palpation and non-tender Extremity normal capillary refill, no joint enlargement and no calf tenderness Extremity Narrative: minimal R ankle edema. does not currently have her JEWELS hose on. General Extremity: Negative for clubbing or cyanosis Peripheral Pulses: Yes pulses 2+ throughout Skin General Skin Exam: no breakdown Rashes: no rashes Neuro CN's II-XII intact bilaterally, moves all extremities and no sensory deficits noted Neuro Narrative: She has left foot drop and otherwise has no focal deficits. I do not detect any gaze abnormalities on my exam. PERRL Psych mental status grossly normal, thought process normal and cooperative Psych Narrative: She had a tear in her eye when we were discussing that she now has chronic lung disease and will need to learn to accept this and compensate. She is still looking overwhelmed. Acknowledges that there are problems with her parents and her boyfriend and this creates tension. We talked about the benefit of therapy in addition to the antidepressant. She feels the Effexor is helping. I stressed the importance of good emotional health in addition to physical health. We talked about getting an AFO to keep the left foot in dorsiflexion an d PT showed her the AFO she should order on [employer]. Activity / Motor Behavior: appropriate eye contact; Negative for psychomotor slowing, fidgetting or restless Speech: normal speech Mood & Affect: tearful Weight / BMI Weight Weight: 236 lb 8.896 oz Body Mass Index (BMI) 32.3 ABG / Lab / Microbiology Data Result Diagrams: 11/17/21 05:46 11/11/21 05:45 Microbiology: Microbiology 11/13/21 20:30 Stool Stool Occult Blood (RIKY) - Final D/C Instructions Discharge Diet: - (Regular diet. No added salt on any foods. The salt will increase swelling in the lungs and cause fluid retention which will make the breathing harder. Keeping your weight down will also make it easier for you to breath, brandon with exertion. ) May resume sexual activity in: - (When you are ready. Take your time.......your lungs are not what they used to be and it may be uncomfortable and anxiety provoking if you are not completely ready. ) Weight Bearing Status: Full weight bearing Keep extremity elevated above heart level: Right Leg Additional Activity Instructions: the blood clots are causing some swelling of the R foot and keeping it elevated when you are sitting will help control the swelling. So will the white stockings. Call your doctor if you observe: Fever of 101 or Higher, Inability to urinate, Inability to have a bowel movement, Shortness of breath (shortness of breath worse than what is your baseline now. ), Dizziness, Fainting spells, Swelling in the ankles, Chest pain, Increased palpitations (irregular heartbeat), Calf discomfort and - (Call your family doctor if any unusual bleeding such as bleeding from the gums, blood from the anus, blood in the urine, nose bleeds, large bruises or bleeding from the vagina if female. ) Pending Tests Upon Discharge: none Please Follow Up With: PCP When: within 7-10 days after DC. Meaningful Use Info Meaningful Use Diagnoses (Choose all that apply): None applicable Discharge Plan Admission Admit Date/Time: 11/09/21 15:00 Primary Reason for Your Visit: DEbility due to COVID PNA with prolonged intubation and hospitalization. Attending Provider: Randa Roblero Instructions Patient Instructions: Pulmonary Fibrosis, Chronic Lung Disease Nutrition Additional Instructions / Restrictions: 1. Do not be in a carter to get back to the place you were prior to COVID. Do the exercises given to you by the therapists at least once a day. Balance rest and exercise. Your lungs have been affected by the virus and all the inflammation you had. If you get tired or short of breath take a break and then start again. 2. It is very important that you follow up with a lung specialist. We have made an appt for you to see Dr. Ric Lee at the hospital here. He is a lung specialist and he also works in the ICU so he has taken care of many post COVID patients with lung problems. The last CT chest you had showed a mass on the R side......I suspect this is just a clump of scar tissue but, it needs to be f ollowed with additional CT's to make sure it is not changing. 3. You had the first COVID vaccine. You will need a second shot and the date should be on the card you received. 6 months after the second shot you will need a booster. When you have lung disease even a cold can land you in the hosp ital so STAY AWAY from sick people. Always wear a mask when you are out in public. There are vaccines for the flu and also a vaccine for Pneumococcal pneumonia (Pneumovax). I recommend you get them because if you get the flu or pneumonia you will more than likely need to be admitted to the hospital. Dr. Lee and Dr. Mendoza (PCP) will likely discuss this with you also. 4. You have pulmonary fibrosis and the BP in your lungs is high. Fibrosis is scarring and it is not reversible.....you have to learn how to live within your limits and wear oxygen now. 5. Excess weight puts a strain on your lungs so stay at a healthy weight. Dairy tens to make more mucous and this can obstruct the airways making it harder to breath. If you have increased sputum with dairy you may want to limit the amount of dairy products you consume. Small meals are better than large meals because when you eat blood gets diverted to your GI tract to digest the food and it takes blood flow away from the heart and lungs.......this can make a difference when your lungs have been damaged. Sometimes these things seem crazy or insignificant but, little things can make a big difference when you struggle to breath. 6. You are a medication called Effexor. It is to treat anxiety and depression and it can help with weight loss also. You have been through a lot and your life is going to be different when you return home. I think you would benefit from some counselling to help you deal with chronic disease and help you process through everything that happened to you. Plan on taking Effexor (also called venlafaxine) for 6 months and then if you are doing well and feel like you want to try getting off medication you can discuss tapering the dose down with your PCP. 7. you are a strong woman Aleyda to have come through all this. Stay strong and stay healthy! If you have any questions after you leave rehab please do not hesitate to call me at OFFICE [phone] CELL [phone] Discharge Orders/Prescriptions Prescriptions: New Arthritis Pain Compound 3 click topical BID Qty: 0 RF: 0 acetaminophen [Tylenol] 325 mg Tablet 650 mg PO Q6H PRN PRN (Reason: Pain Score 1-10) Qty: 0 RF: 0 venlafaxine 150 mg Capsule,Extended Release 24hr 150 mg PO DAILY Qty: 60 RF: 0 Mucus DM 30-600 mg Tablet Extended Release 12 Hr 1 tab PO BID Qty: 60 RF: 0 metoprolol tartrate 25 mg Tablet 25 mg PO BID@0700,1500 Qty: 60 RF: 0 pantoprazole 40 mg Tablet,Delayed Release (Dr/Ec) 40 mg PO DAILY Qty: 30 RF: 0 ipratropium bromide 42 mcg (0.06 %) [place],Non-Aerosol 2 spray NASAL TID PRN (Reason: Nasal Congestion) Qty: 1 RF: 0 multivitamin with iron Tablet 1 tab PO DAILY Qty: 30 RF: 2 albuterol sulfate 90 mcg/actuation HFA aerosol inhaler 2 puff inhalation Q6H PRN (Reason: shortness of breath or wheezing) Qty: 8.5 RF: 0 Continued sodium chloride 0.65 % Mist 2 spray INTRANASAL BID RF: 0 melatonin 3 mg Tablet 3 mg PO QHS Qty: 30 RF: 0 Eliquis 5 mg Tablet 5 mg PO BID Qty: 60 RF: 0 Discontinued hydroxyzine HCl 10 mg Tablet 10 mg PO Q4H PRN (Reason: anxiety or itching) RF: 0 simethicone 80 mg Tablet 80 mg PO Q6H PRN (Reason: Gas) RF: 0 venlafaxine 75 mg Tablet 75 mg PO DAILY RF: 0 famotidine 20 mg Tablet 20 mg PO BID RF: 0 Referrals / Follow Up: Ric Lee DO [STAFF PHYSICIAN] - 12/15/21 7:15 am Darrell Mendoza MD [STAFF PHYSICIAN] - 12/25/21 8:00 am Disposition Disposition (needs filled in before D/C Order can be placed): Home, Self Care Charges/Coding Visit Charges Inpatient E&M: 99721 Disch Hosp
== END 2021-11-19 14:00 | disposition home or self-care (01) | DRG 142 ==
PROVIDERS: Admitting Provider Internal Medicine; Visit Provider Internal Medicine
DX: J84.10 Pulmonary fibrosis, unspecified (principal); I26.99 Other pulmonary embolism without acute cor pulmonale; E46 Unspecified protein-calorie malnutrition; I82.409 Acute embolism and thrombosis of unspecified deep veins of unspecified lower extremity; I27.20 Pulmonary hypertension, unspecified; J96.11 Chronic respiratory failure with hypoxia; J95.811 Postprocedural pneumothorax; H50.10 Unspecified exotropia; F41.8 Other specified anxiety disorders; D64.9 Anemia, unspecified; G62.9 Polyneuropathy, unspecified; M21.372 Foot drop, left foot; U09.9 Post COVID-19 condition, unspecified; M62.81 Muscle weakness (generalized); E66.9 Obesity, unspecified; Z79.01 Long term (current) use of anticoagulants; Z23 Encounter for immunization; Z87.01 Personal history of pneumonia (recurrent); Z68.32 Body mass index [BMI] 32.0-32.9, adult
CPT/HCPCS: 0001A; 36415; 80053; 82274; 83735; 84100; 85014; 85018; 85025; 91300; 92507; 92522; 92523; 97110; 97116; 97162; 97166; 97530; 97535; 97802; A4216

== ENCOUNTER 2021-12-25 07:46 | Outpatient (CLI) | payer MEDICAID, SELFPAY ==
--- NOTE | 2021-12-25 12:42 | PFT_ITS ---
INTRODUCTION: The patient is a 21-year-old female that presents for pulmonary function studies status post COVID-19. Respiratory therapy reported good patient effort. Bronchodilators were used during testing. INTERPRETATION: Forced expiration spirometry demonstrates no evidence of a large airways obstructive ventilatory defect. There was no significant response to aeroso lized bronchodilators. Spirograms are of good quality and plateau normally. Body plethysmography was performed and revealed a decreased TLC to 3.29 L, 50% of predicted, indicative of a severe restrictive ventilatory impairment. Diffusing capacity by single breath CO was reduced at 37% of predicted. IMPRESSION: Severe restrictive ventilatory impairment with symmetric reduction in diffusing capacity.
== END 2021-12-25 23:59 | disposition home or self-care (01) ==
LOC: PSN 07:48
PROVIDERS: PCP Internal Medicine; Referring Provider Internal Medicine Critical Care Medicine; Visit Provider Internal Medicine Critical Care Medicine
DX: U09.9 Post COVID-19 condition, unspecified (principal)
CPT/HCPCS: 94060; 94726; 94729

== ENCOUNTER 2021-12-29 12:16 | Outpatient (CLI) | payer MEDICAID, SELFPAY ==
[2021-12-29 12:43] VITALS: PULSE 100; PULSE 109; PULSE 110; PULSE 112; PULSE 114; PULSE 116; PULSE 120; PULSE 121; O2SAT 86; O2SAT 89; O2SAT 90; O2SAT 94; O2SAT 95
--- NOTE | 2021-12-29 12:47 | CPS ---
PATIENT HAS OXYGEN AT HOME THROUGH [facility]. ON ROOM AIR PRIOR TO TESTING. PLACED ON 2LPM AT 2 MIN OF TEST D/T SPO2 AT 86% RA, REMAINED ON 2LPM DURATION OF TESTING. ENCOURAGED CONSIDERATION OF PULMONARY REHAB
--- NOTE | 2021-12-29 13:57 | WT_ITS ---
PSN 6 Minute Walk Test 6 Minute Walk Test 6 Minute Walk Test: 6 Minute Walk Test PSN:6-Minute Walk Test Start: 12/29/21 12:43 Freq: Status: Active Protocol: [id number] Document 12/29/21 12:43 [facility] (Rec: 12/29/21 12:50 [facility] [id number]) 6 Minute Walk Test Date Performed 12/29/21 Time Performed 12:30 Height 5 ft 11 in Weight: 113.398 kg Weight in Pounds 250.[address]: Ric Lee Assistive device used: None Pre-test Oxygen Delivery Method Room Air Pulse Ox (%) 90 Pulse Rate (60-100 beats/min) 112 H Dyspnea Carmelina Scale (0-10) 0 1st minute Oxygen Delivery Method Room Air Pulse Ox (%) 90 Pulse Rate (60-100 beats/min) 109 H Dyspnea Carmelina Scale (0-10) 1 Number of Rests Taken 0 2nd minute Oxygen Delivery Method Room Air Pulse Ox (%) 86 Pulse Rate (60-100 beats/min) 116 H Dyspnea Carmelina Scale (0-10) 2 Number of Rests Taken 1 Reported Symptoms Increased Work of Breathing 3rd minute Oxygen Flow Rate (L/min) (L/min) 2 Oxygen Delivery Method Nasal Cannula Pulse Ox (%) 94 Pulse Rate (60-100 beats/min) 110 H Dyspnea Carmelina Scale (0-10) 1 Number of Rests Taken 0 4th minute Oxygen Flow Rate (L/min) (L/min) 2 Oxygen Delivery Method Nasal Cannula Pulse Ox (%) 89 Pulse Rate (60-100 beats/min) 114 H Dyspnea Carmelina Scale (0-10) 1 Number of Rests Taken 0 5th minute Oxygen Flow Rate (L/min) (L/min) 2 Oxygen Delivery Method Nasal Cannula Pulse Ox (%) 90 Pulse Rate (60-100 beats/min) 120 H Dyspnea Carmelina Scale (0-10) 1 Number of Rests Taken 0 6th minute Oxygen Flow Rate (L/min) (L/min) 2 Oxygen Delivery Method Nasal Cannula Pulse Ox (%) 89 Pulse Rate (60-100 beats/min) 121 H Dyspnea Carmelina Scale (0-10) 1 Number of Rests Taken 0 Post-test Oxygen Flow Rate (L/min) (L/min) 2 Oxygen Delivery Method Nasal Cannula Pulse Ox (%) 95 Pulse Rate (60-100 beats/min) 100 Dyspnea Carmelina Scale (0-10) 0 Full Laps Walked 16 Partial Lap, Number of Tiles Walked 36 Total Distance Walked (ft) 980 12/29/21 12:47 Cardiopulmonary Services by Ruth Arellano PATIENT HAS OXYGEN AT HOME THROUGH [facility]. ON ROOM AIR PRIOR TO TESTING. PLACED ON 2LPM AT 2 MIN OF TEST D/T SPO2 AT 86% RA, REMAINED ON 2LPM DURATION OF TESTING. ENCOURAGED CONSIDERATION OF PULMONARY REHAB Initialized on 12/29/21 12:47 - END OF NOTE Interpretation Interpretation: The patient was noted to be 90% on room air at rest with a heart rate of 112 bpm. Patient desaturated to 86% in the second minute was placed on 2 L nasal cannula with improvement. The patient was then able to ambulate for the rest of the test. Patient was able to maintain saturations above 88%, but had persistent tachycardia as high as 121 bpm. In total, the patient traveled 980 feet over the course of 6 minutes with 1 break and no assistive devices. These findings are consistent with a respiratory limitation exercise tolerance. Recommendations Recommendations: Patient requires no supplemental oxygen at rest, but should be using 2 L nasal cannula with any exertion.
== END 2021-12-29 23:59 | disposition home or self-care (01) ==
LOC: PSN 12:18
PROVIDERS: PCP Internal Medicine; Referring Provider Internal Medicine Critical Care Medicine; Visit Provider Internal Medicine Critical Care Medicine
DX: J96.11 Chronic respiratory failure with hypoxia (principal)
CPT/HCPCS: 94618

== ENCOUNTER 2022-01-29 12:30 | Outpatient (RCR) | payer MEDICAID, SELFPAY ==
--- NOTE | 2021-11-20 13:45 | HP.SP.AD ---
History - History Date of Eval: 11/20/21 Medical Diagnosis (from RX): S/P COVID Previous speech therapy: Yes Results: Pt has participated in [address] intervention targeting executive functions, vocal quality and speech intelligibility. Excellent participation in tx sessions w/ min-mod cues required for accurate/consistent execution of VFE & tongue base exercises (TBE). No carryover completion of VFEs outside of sessions, although reports completing TBEs daily. Home exercise folder provided w/ handouts detailing all exercises completed during rehab stay. Encouraged this patient to complete the same exercises independently 10x each, 3x daily following discharge and to follow up w/ outpatient speech therapy for post post discharge. Pt voiced understanding/agreement w/ all education and recommendations provided. Other Relevant Medical History/Diagnoses/Surgery: [facility] H&P: On 08/03/21 she was admitted to [facility] and diagnosed with COVID 19 PNA. She subsequently developed ARDS. She had acute respiratory failure with hypoxia secondary to COVID-pneumonia/ARDS and was intubated on 08/13/21. She was transferred to [facility] on 08/14/21. She was intubated and mechanically ventilated for a prolonged period necessitating tracheostomy which was done on 09/21/21. She had BL pneumothoraces and had BL chest tubes. 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 She was transferred from [facility] to an LTAC ([facility]) on 10/06/21 but readmitted to [facility] on 10/13/21 for enlarging R pneumothorax. She had been weaned off the vent at [facility] and was on a trach mask from 40% - 80% FIO2). She increasing SOB and cough in CT chest on 10/23/21 showed progressive opacities. She was started on Cefepime/Vanco/Azithromycin and completed a 7 day course. Cefepime caused nausea and she was transitioned to Zosyn to complete the 7 day course. A repeat CXR on 10/30/21 was unchanged and showed persistent BL diffuse airspace disease and a persistent 4.6 x 3.2 cm mass. CTA on 11/01/21 was negative for PE but, showed a mild dilation of the pulmonary trunk consistent with pulmonary HTN. Oxygen requirements have been fluctuating with exercise and she has fibrotic lung disease. She has experienced recurrent pneumothoraces. The most recent chest tube was placed on 10/15/2021 and removed 10/25/2021. She has tachycardia at rest which worsens with even minimal exertion. An ECHO on 10/09 showed a normal EF. Decannulated on 10/23/21. Voriconazole for suspected Aspergillus was stopped on 09/01 because the Aspergillus antigen was only slightly positive and pulmonary felt she had an organizing PNA. CT chest on 10/23/21 showed increasing opacities so she was started on antibiotics. Needs a repeat chest CT in December and this has been scheduled for 01/04/22 at [facility] and will be followed that day by a pulmonary appt. She was treated at [place] with empiric antibiotics, baricitinib, deep sedation, paralytics, proning, remdesivir, inhaled epoprostenol and diuresis. Smoking Status: Never smoker Hx Tobacco Use: No - Pain Is pain an issue with your current prescribed condition?: No - Personal Right Hearing Abillity: Normal Left Hearing Abillity: Normal Patient Allergies - Allergies Allergies No Known Allergies Allergy (Verified 11/09/21 16:16) Subjective Voice - Intubation Was the Client intubated: Yes If yes, list date, duration, and explanation: She was intubated and mechanically ventilated for a prolonged period necessitating tracheostomy which was done on 09/21/21. She had BL pneumothoraces and had BL chest tubes. 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 She was transferred from [facility] to an LT[facility] ([facility]) on 10/06/21 but readmitted to [facility] on 10/13/21 for enlarging R pneumothorax. She had been weaned off the vent at [facility] and was on a trach mask from 40% - 80% FIO2). She increasing SOB and cough in CT chest on 10/23/21 showed progressive opacities. A repeat CXR on 10/30/21 was unchanged and showed persistent BL diffuse airspace disease and a persistent 4.6 x 3.2 cm mass. CTA on 11/01/21 was negative for PE but, showed a mild dilation of the pulmonary trunk consistent with pulmonary HTN. Oxygen requirements have been fluctuating with exercise and she has fibrotic lung disease. The most recent chest tube was placed on 10/15/2021 and removed 10/25/2021. She has tachycardia at rest which worsens with even minimal exertion. An ECHO on 10/09 showed a normal EF. Decannulated on 10/23/21. - Intake Water (ounces): 64 Soda (ounces): 16 - Alcoholic Beverage Intake Intake: Rarely - Other Product Usage Do you use products containing menthol (if yes, list): No Do you take Vitamin C Supplements (if yes, list amt (mg)/day: No Do you use recreational drugs (if yes, list type/amt/frequency): No Objective Voice - Date of Diagnosis Previous Speech Therapy (If yes, describe): Yes - Objective data Objective Data: Objective data: Sound pressure level (SPL acoustic correlation of vocal loudness) was measured with a sound level meter at a distance of 40 cm from the patient's mouth. Average conversational loudness is 70-80 dB and sustained phonation duration is 15 to 20 seconds for a typical adult. Sustained Phonation Intensity (dB SPL): 58.7 - Observational Assessment Maximum Phonation Time in seconds: 4.4s S/Z Ratio: 2.625 Sustained /s/: 13.73s Sustained /z/: 5.23s Ratio: 2.625 Greater than 1:4 (indicates dysfunction): Yes Other Impressions - Comments Other Impressions -: Diadochokinetic Rate. -puh: patient average 5.4 syllables per second (WNL = 6.1) IMPAIRED. -tuh: patient average 5.4 syllables per second (WNL = 6.0) IMPAIRED. -kuh: patient average 6.4 syllables per second (WNL = 5.7) IMPAIRED. -puh-tuh-kuh: patient average 1.8 syllables per second (WNL = 7.5) IMPAIRED - findings indicate impairment in articulatory. strength/coordination, base of tongue weakness evident. S/Z Ratio. -/s/ average duration: 13.73 seconds (WNL = ~20-25 seconds) IMPAIRED *prev. 8.76s. -/z/ average duration: 5.23 seconds (WNL = ~20-25 seconds) IMPAIRED *prev. 3.83s. -Average s/z ratio: 13.73/5.23 = 2.6 (WNL = ~ ratio of 1) IMPAIRED - findings indicate the presence of both respiratory and laryngeal. impairment. Maximum Phonation of /a/. -Sustained /a/: average of 4.4 seconds w/ average vocal intensity of 54.5dB-SPL (median 22.7 seconds, min 15.2 seconds IMPAIRED Plan - Plan Plan: Speech therapy is medically necessary to evaluate and treat vocal quality, breath support and speech intelligibility so patient can return to [facility]. - Recommendations MBS: No Treatment Warranted: Yes - Frequency Frequency: 1x/Week Duration: 6 Weeks - Prognosis Prognosis: Excellent - Goals that are Established: Determination:: Goals will be added/modified as deemed necessary and appropriate. Therapy will be discontinued when results of re-evaluation indicate therapy is no longer needed or lack of progress has been documented. - Goal #1-5 Goal #1: Aleyda will complete vocal fold adduction, respiration, and tongue base strengthening exercises during speech therapy sessions w/ min cues for accurate execution. Goal #2: Aleyda will complete vocal function exercises (VFE) 3-5x daily with complete independence. Education - Patient Instruction Patient Education: Diagnosis, Treatment Plan, Goals Person Taught: Patient Teaching Method: Discussion Response to teaching: Verbalize understanding
--- NOTE | 2021-11-20 14:36 | HP.PTEVAL ---
Patient's Visit Information SHAILA FERNÁNDEZ is a 21 year old F referred to Physical Therapy by Dr. Randa Roblero DO with a diagnosis of S/P COVID. Date of Evaluation: 11/20/21 Physical Therapist: Sandy Rome PT, Cert MDT - Visit Plan Frequency: 2-3x /Week Duration: 4-6 Weeks Plan: *H/O NECK AND BACK PAIN TREATED BY CHIROPRACTOR* - Subjective Work/Leisure: WAS WORKING AT [employer] THE LAST WEEK OF JUL 2021. I LOVE GOING AND HIKING AND SPENDING TIME OUTDOORS. Disability: NO. Present symptoms: GENERAL WEAKNESS AND POOR ENDURANCE. PATIENT REPORTS THAT AFTER EX WITH OT IN THE HOSPITAL HER RIGHT SHLD AND EX GET SORE AND SHE WILL ADDRESS THIS WITH HER NEW OT AT THE [facility] ON TUESDAY. PATIENT DENIES ANY OTHER PAIN. Present since: ABOUT THE FIRST WEEK IN . Commenced as a result of: Mononucleosis and/or Covid. Symptoms at onset: tiredness then sore throat. Disturbed sleep: NO. REPORTS SHE IS GETTING 6-8 HOURS A NIGHT AND NAPS DURING THE DAY. Previous history/Previous treatment: WENT TO THE HOSPITAL AUG 03 2021 IN [place] UNTIL 08/14/21. INTUBATED AT [place] AND TRANSFERRED TO [facility] IN [place]. STATES SHE DOES NOT REMEMBER ANYTHING FOR THE NEXT 40 DAYS AND STATES SHE WAS ON A VENT FOR ABOUT 39 DAYS. THEN HAD A TRACH PLACED UNTIL WAS TRANSFERRED TO [facility] 11/09/21. HAD ABOUT 4 CHEST TUBES. STATES SHE IS CURRENTLY ON 2L O2 AT REST, 4L WITH EX, BLOOD THINNERS, DEPRESSION MEDICATION, MEDICATION TO CONTROL HEART RATE (DOWN TO 110 BPM AT REST AND 145 BPM WITH EX, UP TO 160 BPM WITH COFFEE YESTERDAY). A FEW OTHER MEDS WELL. Gait: DEVELOPED DROP FOOT ON LEFT AND WAS TAUGHT HOW TO WRAP IT. STATES SHE HAS BEEN TOLD IT MIGHT COME BACK BUT WILL TAKE A LONG TIME. Difficulty initiating urination: NO. NO LOSS OF BOWEL OR BLADDER CONTROL. Accidents: NO. Unexplained weight loss: NO BUT LOST ABOUT 40 LBS DURING COVID. Imaging: CHEST X-RAY SHOWS RIGHT LUNG NODULE AND FOLLOW UP X-RAYS PENDING. PMH/Recent major surgery: ASTHMA, H/O CHIROPRACTOR FOR NECK AND BACK PAIN. CHIROPRACTOR OFF AND ON NEEDED AND WENT RIGHT BEFORE GOT SICK FOR NECK AND LOW BACK PAIN. SOCIAL - LIVES WITH CYNTHIA AND HIS FAMILY. THEY ARE IN GOOD HEALTH. HIS FAMILY IS CURRENTLY DOING THE COOKING AND CLEANING. ADL'S - PATIENT REPORTS SHE IS CURRENTLY DRESSING AND BATHING HERSELF. OTHER: I FEEL LIKE I PRETTY MUCH LOST ALL MY MUSCLE LAYING IN THE HOSPITAL ALL THAT TIME. REPORTS THAT WITH PHYSICAL THERAPY AT THE HOSPITAL BEFORE DISCHARGE SHE COULD WALK ABOUT 250 FEET WITHOUT A BREAK. - Pain HEADACHE Pain Intensity (Out of 10): 0 Pain Intensity Range: 0, 7 Comment: INTERMITTENT. TAKES TYLONOL FOR IT NECK PAIN Pain Intensity (Out of 10): 4 Pain Intensity Range: 2, 9 Comment: CONSTANT RIGHT SHLD Pain Intensity (Out of 10): 6 Pain Intensity Range: 2, 9 Comment: CONSTANT - Objective Sitting/Standing Posture: POOR. FORWARD HEAD. RS'S. Lordosis: NORMAL. Lateral shift: NO. Relevant shift: N/A. Other Observations: THIS PATIENT ABMULATED INDEP'LY INTO PT WITHOUT ANY ASSISTIVE DEVICES PULLING AN O2 TANK SET TO 2L'S. LEFT FOOT DROP. PATIENT IS HIKING LEFT HIP TO CLEAR TOES AND DID NOT HAVE ANY LOB. DEMO'S INDEP GAIT WITH DECREASED CADANCE X APPORX 300 FEET BEFORE NEEDING TO REST. PATIENT IS UE DEPENDENT TO TRANSFER FROM SIT TO STAND. Motor deficit: UE STRENGTH DEFERRED TO OT TESTING. DANNY LE STRENGTH GROSSLY 5/5 WITH MMT'ING EXCEPT DANNY HIPS 4/5 AND LEFT ANKLE 2-/5. Sensory deficit: DECREASED LIGHT TOUCH SENSATION OF LEFT LATERAL LEG AND TOP OF LEFT FOOT. ROM deficit: LEFT FOOT DROP. DANNY LE'S WFL. Lumbar mvmt loss: flex - NIL. ext - MIN. R SG - MIN. L SG - MIN. INCREASED C/O LBP WITH LUMBAR ROM TESTING ALL PLANES JUST DURING MVMT. Core strength: POOR. Palpation: NO ACUTE TENDERNESS WITH PALPATION OF LOWER THORACIC OR LUMBAR SPINE. OTHER: PATIENT CAME TO PT TODAY WITHOUT HER LEFT ANKLE WRAPPED BUT REPORTS SHE LEARNED HOW TO WRAP IT IN THE HOSPITAL. - Balance/Special Test Scores Lower Extremity Functional Score: 28 - Goals Goal 1:: INDEP AND SAFE GAIT ON LEVEL SURFACES X > 1,000 FEET WITH LEAST DEVIATIONS TO EASE ADL'S Goal Time Frame: 4-6 Weeks Goal 2:: IMPROVE STANDING TOLERANCE TO 30 MIN TO EASE ADL'S Goal Time Frame: 4-6 Weeks Goal 3:: IMPROVE LEFS SCORE BY 5 POINTS. Goal Time Frame: 4-6 Weeks Goal 4:: PATIENT WILL BE INDEP WITH A HEP FOR CONTINUED IMPROVEMENT ONCE FORMAL PHYSICAL THERAPY CONCLUDES. Goal Time Frame: 4-6 Weeks Goal 5:: INDEP GAIT UP AND DOWN 2 FLIGHTS OF STEPS WITH ONE HANDRAIL Goal Time Frame: 4-6 Weeks Goal 6:: INCREASE CORE AND LE STRENGTH TO IMPROVE BALANCE AND GAIT SAFETY. - Anticipated Interventions Patient/Client Instruction: Educate patient on: Condition, Plan of Care, Risk Factors For the Purpose of:: To improve self management Therapeutic Exercise to Include: Strength training, Endurance training, Balance training, Body mechanics, Postural training, Flexibilty training, Gait and locomotor training, Neuromotor development, In an aquatic setting, Dynamic Lumbar Stabilization For the Purpose of:: To increase ROM, To improve muscle performance and motor function, To increase tolerance to activity/condition/position, To improve ability of physical actions for home/community/work/leisure, To improve gait and locomotor functions Thank you for the opportunity to evaluate your patient. For Medicare and Medicare HMO plans, please review the plan of care and approve it. It will need to be FAXED BACK to us at [phone] for Medicare purposes. For Medicare only, by signing this I certify the plan of care. Please let me know if there are questions or concerns regarding this plan of care. Physician Signature: Date:
--- NOTE | 2021-11-23 17:26 | HP.OTEVAL_ITS ---
Patient's Visit Information SHAILA FERNÁNDEZ is a 21 year old F, referred to Occupational Therapy by Dr. Randa Roblero DO, with a diagnosis of debility/Covid. Date of Evaluation: 11/23/21 Occupational Therapist: Leta Santacruz, OTR/Miguel, CHT - Subjective This 21 year old female was seen for OT with debility- pt states she was dx with Covid Aug.03. went to ER and was admitted for about three months and 16 day. Pt states she has been out of the hospital since 11/19/21. Pt states she is on 2 liters O2, and when walking 3 liters of O2. pt states she has returned to performing her ADLs and IADls. pt is right handed-. pt was employed at [employer] about 40 hours a week. Pt PLOF Driving, working and performing all ADLS at IND. level. 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 - ADLs Comments: pt states she lives with her fianc? and his family - in a two story home with two entry steps. pt states her fijaron? is looking for a job- but currently is at home with pt and pts soon to be mother in law does not work outside of home-. pt states her endurance with breathing limits her from performing cleaning/cooking and laundry. pt standing she is standing for her shower and is with her O2 at 2 liters. 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 pt will demo a increase in Bilateral alternative medicine practitioner strength by 20# for pt to return to ADLs and IADLs/ cooking at IND. level by d/c Goal:: pt will report no pain in right shoulder greater than 1/10 with use of right UE with ADls and iADLs by dc Goal:: pt will demo the ability to perform 30 min UB strengthening with SpO2 at 95% while on 2 liters of O2. pt will demo understanding of using ad. eq. and cooking modifications as to sit when she can and stand when necessary to avoid SOB with cooking tasks by d/c - Rehabilitation General Assessment: pt demo with a bilateral UE weakness limiting pts ability to perform her ADLs and IADls at a IND. level. Pt would benefit from skilled OT services 2--3x week for 6-8 weeks to strength pt to return to her PLOF. Today therapist gave pt handout on a home t-band UB ex. program- pt demo understanding and agree to POC of strengthening. Rehabilitation Potential: Good - Anticipated Interventions Strengthening, Ergonomic Education, Education re Diagnosis, Caregiver Training, Home Program - Visit Plan Frequency: 2-3x /Week Duration: 2 Months TEXT: Thank you for the opportunity to evaluate your patient. For Medicare and Medicare HMO plans, please review the plan of care and approve it. It will need to be FAXED BACK to us at [phone] for Medicare purposes. Please let me know if there are questions or concerns regarding this plan of care. Physician Signature: Date:
--- NOTE | 2022-01-01 14:23 | HP.PTREVAL ---
Dr. Randa Roblero, DO, It has been my pleasure to treat SHAILA FERNÁNDEZ over the last 10 visits for S/P COVID. Please see the progress note below for an update on the physical therapy plan of care! Subjective: PATIENT REPORTS SEEING A FAMILY DOCTOR FOR THE FIRST TIME AND SHE TOLD HER TO CONTINUE INCREASING HER ACTIVITY LEVEL SHE IS DOING. ALSO STILL UNDER THE CARE OF PULMONOLGIST. ABLE TO GO ABOUT TWO HOURS AT A TIME NOW WITHOUT OXYGEN AND WITHOUT GOING BELOW 95%, OTHERWISE ONLY NEEDING ONE LITER OF O2 TO STAY AT 95% OR HIGHER. PATIENT REPORTS SHE SAT IN THE CARE FOR 1.5 HOURS YESTERDAY AND WHEN SHE GOT OUT SHE GOT A SHARP PAIN IN HER L LOW BACK AND INCREASED NUMBNESS/TINGLING IN HER LEFT FOOT. SHE REPORTS SOME DAYS SHE HAS MORE MVMT IN HER LEFT ANKLE THAN OTHER DAYS AND TODAY IT ISN'T MOVING WELL. Objective/Function: PATIENT WAS SEEN TODAY FOR RE-ASSESSMENT OF PROGRESS TOWARD THE SET PT GOALS AND THE NEED FOR FURTHER PHYSICAL THERAPY VS READINESS FOR DISCHARGE. PATIENT ACTIVITY TOLERANCE IS IMROVING. SHE IS TOLERATING PRE AND IS A GOOD CANDIDATE TO CONTINUE PT BASED ON PROGRESS MADE AND ROOM FOR FURHTER IMRPOVEMENT NEW INCREASE IN BACK PAIN ALLOWS. SHE IS AGREEABLE WITH CONTINUEING PT. UPON EXAM TODAY: THIS PATIENT AMBULATES INDEP'LY INTO PT WITHOUT ANY ASSISTIVE DEVICES OR LOB AND WITH 1 L OF O2 AND L FOOT DROP. NO SOB WITH GAIT 300 FEET X 2. DEMO''D GAIT X 400+ FEET PRVIOUS SESSION. ABLE TO TRANSFER SIT TO STAND WITHOUT UE ASSIST. DANNY LE STRENGTH GROSSLY 5/5 WITH MMT'ING EXCEPT L FOOT DROP. L ANKLE 2-/5. PATIENT DENIES INCREASED BACK PAIN WITH DANNY LE MMT'ING. DECREASED LEFT LATERAL LEG AND FOOT LIGHT TOUCH SENSATION COMPARED TO RIGHT. POSITIVE DANNY LE DURAL SIGNS L >R. LUMBAR MVMT LOSS: FLEX - NIL, EXT - MIN, DANNY SG - MIN. PATIENT C/O INCRASED BACK PAIN WITH LUMBAR ROM TESTING INTO EXTENSION AND L SG. REPORTS SHE IS GOING TO SEE A CHIROPRACTOR TOMORROW AND THIS PT RECOMMENDED DISCUSSION ABOUT CHIROPRACTOR WITH PCP. Plan Plan: CONT PT 3X'S A WK X 3-4 WKS PER POC. PATIENT AGREEABLE. *H/O NECK AND BACK PAIN TREATED BY CHIROPRACTOR*. LEFT ANKLE STRENGTHENING. GAIT TRAINING. CORE STRENGTH AND STABILITY TRAINING. ENDURANCE TRAINING. DANNY LE ROM, STRETCHING AND STRENGTHENING. Balance/Gait/Functional tests - Balance/Special Test Scores Lower Extremity Functional Score: 40 Goals Goal 1:: INDEP AND SAFE GAIT ON LEVEL SURFACES X > 1,000 FEET WITH LEAST DEVIATIONS TO EASE ADL'S Goal Time Frame: 4-6 Weeks Goal Progress: Progressing Goal 2:: IMPROVE STANDING TOLERANCE TO 30 MIN TO EASE ADL'S Goal Time Frame: 4-6 Weeks Goal Progress: Progressing Goal 3:: IMPROVE LEFS SCORE BY 5 POINTS. Goal Time Frame: 4-6 Weeks Goal Progress: Goal Met Goal 4:: PATIENT WILL BE INDEP WITH A HEP FOR CONTINUED IMPROVEMENT ONCE FORMAL PHYSICAL THERAPY CONCLUDES. Goal Time Frame: 4-6 Weeks Goal Progress: Progressing Goal 5:: INDEP GAIT UP AND DOWN 2 FLIGHTS OF STEPS WITH ONE HANDRAIL Goal Time Frame: 4-6 Weeks Goal Progress: Progressing Goal 6:: INCREASE CORE AND LE STRENGTH TO IMPROVE BALANCE AND GAIT SAFETY. Goal Progress: Progressing Anticipated Interventions Patient/Client Instruction: Educate patient on: Condition, Plan of Care, Risk Factors For the Purpose of:: To improve self management Therapeutic Exercise to Include: Strength training, Endurance training, Balance training, Body mechanics, Postural training, Flexibilty training, Gait and locomotor training, Neuromotor development, In an aquatic setting, Dynamic Lumbar Stabilization For the Purpose of:: To increase ROM, To improve muscle performance and motor function, To increase tolerance to activity/condition/position, To improve ability of physical actions for home/community/work/leisure, To improve gait and locomotor functions Please do not hesitate to contact me at [phone] by phone or if you have questions or concerns regarding this new plan of care! Sincerely, Sandy Rome, PT, Cert MDT
--- NOTE | 2022-01-25 12:54 | HP.OTDCSUM ---
It has been my pleasure to treat SHAILA FERNÁNDEZ under orders from Dr. Lucio Lee DO, for the diagnosis of debility/Covid for a total of 12 visit(s). Please see the following information for a summary of their discharge status. % Improvement: 90 Objective/Function: pt right bleach range operator 80# increase from 45#. left bleach range operator 75# increase from 50#. right lateral pinch 12# increase from 10#. left lateral pinch 12# increase from 10#. right/Left UB MMT 4+/5 Patient Goals: Regain Strength, Be More Independent in ADLS, Resume Former Household Responsibilities (Cooking,Cleaning,Yard, etc.) Goal:: pt will demo a increase in bilateral UE MMT to 5/5 by d/c for pt to return to her PLOF with IADLs. GOAL MET. pt will demo a increase in Bilateral bleach range operator strength by 20# for pt to return to ADLs and IADLs/ cooking at IND. level by d/c GOAL MET Goal:: pt will report no pain in right shoulder greater than 1/10 with use of right UE with ADls and iADLs by dc GOAL MET Goal:: pt will demo the ability to perform 30 min UB strengthening with SpO2 at 95% while on 2 liters of O2. (goal met). pt will demo understanding of using ad. eq. and cooking modifications as to sit when she can and stand when necessary to avoid SOB with cooking tasks by d/c ( goal met) Plan: D/C Discharge Comments: Pt was seen for 12 OT sessions- pt has met initial- OT goals and has returned to performing 90% of her daily tasks- pt request D/C with HEP. If there are questions or concerns regarding this patient's occupational therapy, please fell free to call me at [phone]. Thank you for the referral of this patient. Sincerely, Leta Santacruz, OTR/L, CHT
--- NOTE | 2022-04-07 16:08 | HP.SP.DC ---
ST Discharge Summary - Discharged: Discharge: Pt. was seen for initial voice valuation at [facility] on 11/20/21 secondary to dx of Covid-19. Pt attended 8 sessions from initial evaluation targeting vocal fold adduction, respiration, and tongue base strengthening exercises and vocal function exercises to improve overall voice s/p intubation. Significant progress compared to RU evaluation and baseline outpatient evaluation. Patient reports functional gains w/ in speech therapy voice tx. Pt. being discharged from speech therapy caseload on this date, 04/07/22, secondary to reporting that pt. felt she was at close to baseline. Recommended pt. follow up w/ [facility] in 1-2 months if voice did not improve for re-evaluation. Recommended ENT consult if pt.'s voice decline. Patient did not schedule additional appointments. Thank you for allowing me to participate the care of your Pt. Will reevaluate at Pt?s request following script from physician.
== END 2022-01-29 19:00 | disposition home or self-care (01) ==
LOC: SP 12:30
PROVIDERS: PCP Family Medicine; Referring Provider Internal Medicine; Visit Provider Family Medicine
DX: Z86.16 Personal history of COVID-19 (principal)
CPT/HCPCS: 97110; 92507; 92524; 97162; 97164; 97166; 97530

== ENCOUNTER 2022-02-01 08:26 | Outpatient (CLI) | payer MEDICAID, SELFPAY ==
[2022-02-01 12:07] LABS: Absolute Lymphocyte Count 1.88 X10^3/uL (0.83-4.51); Absolute Neutrophil Count 6.4 X10^3/uL (2.0-7.7); Basophil# 0.04 X10^3/uL; Basophil% 0.4 % (0-1); Eosinophil# 0.25 X10^3/uL; Eosinophils% 2.8 % (0-5); Hematocrit 42.3 % (37-47); Hemoglobin 13.6 g/dL (12.0-15.0); Lymphocyte # 1.88 X10^3/ul (0.83-4.51); Lymphocyte % 20.7 % (19-41); Mean Corp Hgb Conc 32.2 g/dL (32-36); Mean Corpuscular Hgb 26.6 pg (27.0-32.0); Mean Corpuscular Volume 82.6 fL (81-99); Mean Platelet Vol. 11.6 fl (6.2-12.0); Monocyte# 0.53 X10^3/uL; Monocyte% 5.8 % (0-10); NRBC Flagged by Analyzer 0 % (0-5); Neutrophil # 6.35 X10^3/uL (2.7-7.7); Platelet Count 291 K/mm3 (150-450); RBC Distribution Width CV 14.2 % (11.6-14.6); RBC Distribution Width SD 42.4 fl (35.1-43.9); Red Blood Count 5.12 M/mm3 (4.2-5.4); White Blood Count 9.1 K/mm3 (4.4-11.0)
[2022-02-01 12:32] LABS: AST(SGOT) 18 U/L (15-37); Alanine Aminotransfer ALT/SGPT 26 U/L (13-56); Albumin, Serum 3.9 g/dL (3.2-5.0); Alkaline Phosphatase 62 U/L (45-117); Anion Gap 7 (5-15); BUN 11 mg/dL (7-18); Calcium,Total 9.3 mg/dL (8.5-10.1); Chloride 105 mmol/L (98-107); Creatinine, Serum 0.92 mg/dL (0.55-1.02); EST Glomerular Filtration Rate 81 mL/min (>60); Est Glom Filt Rate - Afr Amer 98 mL/min (>60); Glucose 88 mg/dL (74-106); Potassium 4.2 mmol/L (3.5-5.1); Protein, Total 7.9 g/dL (6.4-8.2); Sodium Level 138 mmol/L (136-145); T4 Free Direct 0.86 ng/dL (0.76-1.46); Thyroid Stim Hormone (TSH) 2.61 uIU/mL (0.358-3.74)
== END 2022-02-01 23:59 | disposition home or self-care (01) ==
LOC: BIMLAB 08:27
PROVIDERS: PCP Internal Medicine; Referring Provider Internal Medicine; Visit Provider Internal Medicine
DX: J84.10 Pulmonary fibrosis, unspecified (principal); R00.0 Tachycardia, unspecified
CPT/HCPCS: 36415; 80053; 84439; 84443; 85025

== ENCOUNTER 2022-02-10 16:19 | Outpatient (CLI) | payer MEDICAID, SELFPAY ==
--- NOTE | 2022-02-10 18:45 | CT_ITS ---
STUDY: CT CHEST WITHOUT CONTRAST REASON FOR EXAM: Female, 21 years old. Masslike opacity on prior imaging RADIATION DOSAGE (If Supplied By Facility): CTDIvol = ( 18.88 ) mGy, DLP = ( 665.18 ) mGycm TECHNIQUE: Transaxial imaging was performed without intravenous contrast demonstration.. Multiplanar coronal and sagittal images were reformatted. Individualized dose optimization techniques were used for this CT. COMPARISON: None. FINDINGS: Small benign-appearing bilateral axillary lymph nodes. Scarring at the lung apices more prominent on the left side with a 1.2 cm bulla. Diffuse increased interstitial markings in both lungs worse in the upper lobes. There is a 1.6 cm x 0.7 cm nodule in the peripheral lateral aspect of the right lower lobe as seen on axial image #65 and 66. Correlation with a PET scan is recommended. There is also evidence of groundglass opacities in both lower lobes. This may represent scarring. There is no demonstrated pleural abnormality. Normal heart and pericardium. Coronary artery calcification Normal mediastinum. Normal hilar regions. Normal enhanced and unenhanced pulmonary arteries. Normal aorta arch and descending thoracic aorta. Normal osseous structures. Moderate amount of residual food particles seen within the stomach. CT/Chest without Contrast IMPRESSION: Scarring at both lung apices worse on the left side. Diffuse increased interstitial markings with areas of groundglass appearance worse in the upper lobes. Interstitial markings with areas of confluence are also seen at the lung bases. 1.6 cm x 0.7 cm nodule in the peripheral lateral aspect of the right lower lobe as described. Correlation with a PET scan is recommended. Electronically Signed: Paddy Chauhan MD at 8:47 EDT ,
== END 2022-02-10 23:59 | disposition home or self-care (01) ==
LOC: CT 02-12 16:19
PROVIDERS: PCP Internal Medicine; Visit Provider Internal Medicine Critical Care Medicine
DX: R93.89 Abnormal findings on diagnostic imaging of other specified body structures (principal)
CPT/HCPCS: 71250

== ENCOUNTER → 2022-05-07 | Outpatient (CLI) | payer BC, MEDICAID, SELFPAY | END | disposition home or self-care (01) | LOC: LABSPEC 11:00 | PROVIDERS: PCP Internal Medicine; Referring Provider Physician Assistant; Visit Provider Physician Assistant | DX: J02.9 Acute pharyngitis, unspecified (principal); Z20.822 Contact with and (suspected) exposure to COVID-19 | CPT/HCPCS: 87635; U0003; U0005 ==

== ENCOUNTER 2022-07-03 21:01 | Emergency (ER) | payer BC, MEDICAID, SELFPAY ==
[2022-07-03 21:02] VITALS: BP 128/84; PULSE 110; RESP 18; TEMP 35.4; O2SAT 97; BMI 40.6
--- NOTE | 2022-07-03 21:17 | EKG12_ITS ---
Test Reason : SOB Blood Pressure : / mmHG Vent. Rate : 099 BPM Atrial Rate : 099 BPM P-R Int : 146 ms QRS Dur : 108 ms QT Int : 344 ms P-R-T Axes : 024 041 019 degrees QTc Int : 441 ms Normal sinus rhythm Normal ECG Confirmed by KIRSTEN DILL, NEPTALI ([id number]), acquisition editor SHRADDHA MENDEZ ([id number]) on 07/06/2022 9:09:26 AM Referred By: DELIA Confirmed By:JASWANT CURTIS MD
--- NOTE | 2022-07-03 21:18 | EDS_ITS ---
HPI History of Present Illness Chief Complaint: Shortness of Breath Informant: patient Narrative Narrative: Patient present secondary to increased shortness of breath with blacking out. Patient suffered from COVID infection last fall. She was in the hospital for 3- 1/2 months. She had developed bilateral pneumothoraces. She is currently off of supplemental oxygen but does monitor her O2 sat frequently. Last couple weeks she has noted increasing shortness of breath but O2 sats have been in the mid 90s on room air. At 11:00 this morning she was standing in her kitchen doing dishes when she felt as if she might blackout 2 separate times. She did not feel particular short of breath at that time but went to check her O2 sat. It was in the mid 80s. She still has home oxygen available to her and put this on. She has been using 2 to 3 L today to keep her oxygen saturations over 95%. She states she does have slight pain in the right lower chest. She has not had significant cough. [facility] Medical History 16 weeks gestation of Acute respiratory failure due to COVID-19 Anemia C. difficile enteritis Cranial neuropathy Dermatitis DVT (deep venous thrombosis) Exotropia History of COVID-19 History of malnutrition History of pneumothorax Hx of recurrent urinary tract infection Obesity Ophthalmoplegia of right eye Recurrent pneumothorax after chest tube removed Sprain and strain of temporomandibular joint Home Medications acetaminophen 325 mg tablet (Tylenol) 650 mg PO Q6H PRN PRN Pain Score 1-10 #0 tabs 11/19/21 [Rx Last Taken Unknown] albuterol sulfate 90 mcg/actuation aerosol inhaler 2 puff inhalation Q6H PRN shortness of breath or wheezing #8.5 grams 11/19/21 [Rx Last Taken Unknown] prenat.vits,jorge alberto,[id number] 1 tab PO DAILY #90 tabs 03/11/22 [Rx Last Taken Unknown] metoprolol succinate 25 mg tablet,extended release 24 hr 25 mg PO BID 05/07/22 [History Last Taken Unknown] venlafaxine 150 mg capsule,extended release 24 hr 150 mg PO DAILY #90 caps 05/07/22 [Rx Last Taken Unknown] venlafaxine 37.5 mg capsule,extended release 24 hr 37.5 mg PO DAILY #90 caps 06/02/22 [Rx Last Taken Unknown] Allergy/AdvReac Type Severity Reaction Status Date / Time No Known Allergies Allergy Verified 07/03/22 21:07 Family History Mother Diabetes Grandmother Hypertension Leukemia Surgical History History of placement of chest tube History of tracheostomy Social History adopted: No household members: significant other housing: house number of children: 0 current occupational status: unemployed history of recent travel: No Smoking Status: Never smoker alcohol intake: former details: rare ETOH prior to COVID infection in July 2021. None currently substance use type: does not use ROS ROS ED Constitutional Constitutional ED: Denies chills or fever(s) Eyes Eyes: Denies change in vision or discharge from eye(s) ENT ENT ED: Denies discharge from eye(s), rhinorrhea or sore throat Cardiovascular Cardiovascular: Reports chest pain; Denies palpitations Respiratory/Chest Respiratory/Chest: Reports dyspnea; Denies cough Gastrointestinal Gastrointestinal: Denies abdominal pain, diarrhea, nausea or vomiting Genitourinary Genitourinary ED: Denies dysuria Musculoskeletal Musculoskeletal: Denies back pain or extremity pain Integumentary Denies Abrasions or rash Neurologic Neurologic: Denies headache(s) or weakness Psychiatric Psychiatric: Denies anxiety or depression Allergic/Immunologic Allergic/Immunologic ED: Denies lip swelling or urticaria EXAM Physical Exam Narrative Exam Narrative: Patient sitting upright in bed no acute distress. Speaking full sentences. Const Vital Signs: 07/03/22 21:02 07/03/22 22:29 07/03/22 23:50 Temperature 95.8 F L Temperature Source Temporal Pulse Rate 110 H 111 H Respiratory Rate 18 16 Respiratory Effort Short of Breath Respiratory Depth Normal Respiratory Pattern Normal Blood Pressure 128/84 H Blood Pressure Mean 98 Pulse Ox 97 96 Oxygen Delivery Method Nasal Cannula Nasal Cannula Room Air Oxygen Flow Rate (L/min) 3 3 Positive well nourished and well developed General Appearance ED: well developed HEENT Reports moist mucous membranes Eyes PERRL and EOMs intact bilaterally Neck no lymphadenopathy Chest Wall inspection of chest normal and palpation of chest normal Resp normal respiratory effort and clear to auscultation bilaterally Cardio regular rate and regular rhythm GI GI Narrative: Gravid abdomen. Nontender to palpation. Extremity Extremity Narrative: 1+ bilateral lower extremity edema, symmetric Neuro oriented x3 Psych mental status grossly normal Skin no rashes or lesions noted MDM MDM MDM Narrative Medical decision making narrative: EKG, chest x-ray, lab work obtained. Lab Data Attestation: I reviewed the patient's lab results. Labs: Laboratory Results - last 24 hr 07/03/22 07/03/22 07/03/22 21:30 21:30 21:30 WBC 9.1 RBC 4.42 Hgb 13.1 Hct 38.2 MCV 86.4 MCH 29.6 MCHC 34.3 RDW Std Deviation 42.5 RDW Coeff of Shannon 13.6 Plt Count 203 MPV 10.8 Immature Gran % (Auto) 0.900 Neut % (Auto) 64.0 Lymph % (Auto) 26.3 Rutherford % (Auto) 6.4 Eos % (Auto) 2.0 Baso % (Auto) 0.4 Absolute Neuts (auto) 5.8 Absolute Lymphs (auto) 2.38 Nucleated RBC % 0 D-Dimer Quant (PE/DVT) Cancelled Sodium 138 Potassium 4.0 Chloride 107 Carbon Dioxide 23.0 Anion Gap 8 BUN 9 Creatinine 0.73 Estim Creat Clear Calc 133.96 Est GFR (MDRD) Af Amer 127 Est GFR (MDRD) Non-Af 105 BUN/Creatinine Ratio 12.3 Glucose 93 Calcium 8.8 Troponin I High Sens < 3 L B-Natriuretic Peptide 07/03/22 07/03/22 21:30 21:57 WBC RBC Hgb Hct MCV MCH MCHC RDW Std Deviation RDW Coeff of Shannon Plt Count MPV Immature Gran % (Auto) Neut % (Auto) Lymph % (Auto) Rutherford % (Auto) Eos % (Auto) Baso % (Auto) Absolute Neuts (auto) Absolute Lymphs (auto) Nucleated RBC % D-Dimer Quant (PE/DVT) 0.54 H* Sodium Potassium Chloride Carbon Dioxide Anion Gap BUN Creatinine Estim Creat Clear Calc Est GFR (MDRD) Af Amer Est GFR (MDRD) Non-Af BUN/Creatinine Ratio Glucose Calcium Troponin I High Sens B-Natriuretic Peptide 3.8 Radiography Chest X-Ray - ED: 1 View, Read by ED Physician, Normal, Heart, Lungs and Mediastinum Diagnostic Testing: Clinical Impression(s) from Imaging Studies Chest X-Ray 07/03/22 21:33 IMPRESSION: Normal x-ray examination of the chest. Electronically Signed: Remberto DO Dari at 22:01 EDT Reading Location ID and State: [facility] / [place] Tel , Service support , Chest CTA 07/03/22 22:32 IMPRESSION: 1. Negative for pulmonary embolism 2. Moderately hypoinflated lungs with scattered patchy airspace disease bilaterally. Possibly from air trapping from hypoinflation, less likely infectious process. Similar as compared to prior exam. Recommend clinical correlation. Electronically Signed: Remberto Chapin DO at 22:55 EDT , EKG Initial EKG: Attestation: I personally reviewed and interpreted this EKG as follows: Interpretation: Sinus Rhythm (Sinus at 99 with no acute ischemia.) Treatment and Re-Evaluation Narrative: heart tones were measured at 150. CBC and chemistry studies unremarkable. Troponin is normal. BNP is normal. D-dimer slightly elevated at 0.54. Chest x-ray per my interpretation reveals no pneumothorax or significant infiltrate. CTA of the chest is obtained. This reveals chronic changes consistent with her prior scan, no evidence of acute infection or PE. Patient is taken off of her supplemental oxygen and maintains her O2 sats between 96 to 99% on room air. She is ambulated. She dropped as low as 93% but quickly recovered. She has oxygen at home that she can use as needed and will monitor her symptoms. Return instructions provided. Discharge Plan Triage Chief Complaint: Shortness of Breath ED Provider: Venus Hudson Dx/Rx/DC Orders Clinical Impression: Dyspnea Instructions: ED Dyspnea Prescriptions: No Action metoprolol succinate 25 mg tablet extended release 24 hr 25 mg PO BID venlafaxine 150 mg capsule,extended release 24hr 150 mg PO DAILY Qty: 90 1RF acetaminophen [Tylenol] 325 mg Tablet 650 mg PO Q6H PRN PRN (Reason: Pain Score 1-10) Qty: 0 0RF albuterol sulfate 90 mcg/actuation HFA aerosol inhaler 2 puff inhalation Q6H PRN (Reason: shortness of breath or wheezing) Qty: 8.5 0RF prenat.vits,jorge alberto,[id number] Tablet 1 tab PO DAILY Qty: 90 4RF venlafaxine 37.5 mg capsule,extended release 24hr 37.5 mg PO DAILY Qty: 90 2RF Rx Instructions: Take with 150mg capsule. Primary Care Provider: Darrell Mendoza Referrals: Darrell Mendoza MD [Primary Care Provider] - 1 Week if not improving Disposition Disposition: Home, Self Care
--- NOTE | 2022-07-03 21:33 | RAD_ITS ---
STUDY: X-RAY CHEST REASON FOR EXAM: Female, 22 years old. sob TECHNIQUE: Single AP portable view of the chest. COMPARISON: None. FINDINGS: The lungs are clear and expanded. There is no demonstrated pleural abnormality. Normal size heart. Normal mediastinum and miriam. Normal visualized pulmonary arteries. Normal visualized aortic arch and descending thoracic aorta. Normal visualized thoracic spine. Normal visualized ribs, clavicles, and shoulders. There is no demonstrated abnormality of the visualized soft tissue structures of the upper abdomen. RAD/Chest 1 View (Portable) IMPRESSION: Normal x-ray examination of the chest. Electronically Signed: Remberto Chapin DO at 22:01 EDT ,
[2022-07-03 21:36] LABS: Absolute Lymphocyte Count 2.38 X10^3/uL (0.83-4.51); Absolute Neutrophil Count 5.8 X10^3/uL (2.0-7.7); Basophil# 0.04 X10^3/uL; Basophil% 0.4 % (0-1); Eosinophil# 0.18 X10^3/uL; Hematocrit 38.2 % (37-47); Hemoglobin 13.1 g/dL (12.0-15.0); Lymphocyte # 2.38 X10^3/ul (0.83-4.51); Lymphocyte % 26.3 % (19-41); Mean Corp Hgb Conc 34.3 g/dL (32-36); Mean Corpuscular Hgb 29.6 pg (27.0-32.0); Mean Corpuscular Volume 86.4 fL (81-99); Mean Platelet Vol. 10.8 fl (6.2-12.0); Monocyte# 0.58 X10^3/uL; Monocyte% 6.4 % (0-10); NRBC Flagged by Analyzer 0 % (0-5); Neutrophil # 5.79 X10^3/uL (2.7-7.7); Platelet Count 203 K/mm3 (150-450); RBC Distribution Width CV 13.6 % (11.6-14.6); RBC Distribution Width SD 42.5 fl (35.1-43.9); Red Blood Count 4.42 M/mm3 (4.2-5.4); White Blood Count 9.1 K/mm3 (4.4-11.0)
[2022-07-03 21:55] LABS: Anion Gap 8 (5-15); BNP,B-Type NATRIURETIC PEPTIDE 3.8 pg/mL (0-100); BUN 9 mg/dL (7-18); BUN/Creat Ratio 12.3 RATIO (10-20); Calcium,Total 8.8 mg/dL (8.5-10.1); Chloride 107 mmol/L (98-107); Creatinine, Serum 0.73 mg/dL (0.55-1.02); EST Glomerular Filtration Rate 105 mL/min (>60); Est Glom Filt Rate - Afr Amer 127 mL/min (>60); Estimated Creatinine Clearance 133.96 ml/min; Glucose 93 mg/dL (74-106); Sodium Level 138 mmol/L (136-145); Troponin-I HS < 3 pg/mL (3.0-54.0)
[2022-07-03 22:16] LABS: D-Dimer Quantitative (DVT/PE) 0.54 FEU/ug/m (0.27-0.49)
[2022-07-03 22:29] VITALS: O2SAT 94
--- NOTE | 2022-07-03 22:32 | CT_ITS ---
STUDY: CTA CHEST REASON FOR EXAM: Female, 22 years old. hypoxia, elevated d-dimer -- 23 wks RADIATION DOSAGE (If Supplied By Facility): CTDIvol = ( 13.85 ) mGy, DLP = ( 508.98 ) mGycm TECHNIQUE: The examination was performed with the intravenous administration of IV 100mL Isovue-370. Post-processing of the angiographic images was performed, with multiplanar reformation and 3D reconstruction. Individualized dose optimization techniques were used for this CT. COMPARISON: 02/10/2022 FINDINGS: Normal enhancement of the main pulmonary artery and right and left pulmonary arteries. Normal enhancement of the bilateral peripheral pulmonary arteries. There is no demonstrated pulmonary embolism. Normal thoracic aorta and visualized great vessels. There is no demonstrated aortic dissection. Normal heart and pericardium. Normal mediastinum. Normal hilar regions. Normal visualized trachea and bronchi. The lungs are under expanded. Patchy airspace disease bilaterally. Could be related to air trapping from hypoinflation. Less likely to represent infectious process. No evidence of consolidation or effusion. Normal pleura. Normal chest wall structures. Normal osseous structures. Normal visualized upper abdomen. CT/CTA Chest W/WO Contrast IMPRESSION: 1. Negative for pulmonary embolism 2. Moderately hypoinflated lungs with scattered patchy airspace disease bilaterally. Possibly from air trapping from hypoinflation, less likely infectious process. Similar as compared to prior exam. Recommend clinical correlation. Electronically Signed: Remberto Chapin DO at 22:55 EDT ,
--- NOTE | 2022-07-03 22:52 | ED.RN ---
THIS RN LISTENS FOR HEART TONES AT THIS TIME, UNABLE TO FIND. OJ, CHARGE NURSE ALSO ATTEMPTS TO FIND HEART TONES. SHE IS ALSO UNABLE TO FIND AT THIS TIME. OB CALLED AND RN TO COME OBTAIN HEART TONES.
[2022-07-03 23:50] VITALS: PULSE 111; RESP 16; O2SAT 96
[2022-07-03 23:51] VITALS: O2SAT 96
== END 2022-07-04 00:19 | disposition home or self-care (01) ==
PROVIDERS: Emergency Provider Emergency Medicine; PCP Internal Medicine; Visit Provider Emergency Medicine
DX: O99.891 Other specified diseases and conditions complicating pregnancy (principal); O99.212 Obesity complicating pregnancy, second trimester; R06.00 Dyspnea, unspecified; Z3A.16 16 weeks gestation of pregnancy; Z86.718 Personal history of other venous thrombosis and embolism; Z86.16 Personal history of COVID-19
CPT/HCPCS: 71045; 71275; 80048; 83880; 84484; 85025; 85379; 93005; 99283; Q9967

== ENCOUNTER → 2022-08-05 | Outpatient (CLI) | payer BC, MEDICAID, SELFPAY | END | disposition home or self-care (01) | LOC: LABSPEC 15:35 | PROVIDERS: PCP Internal Medicine; Referring Provider Internal Medicine; Visit Provider Internal Medicine | DX: U07.1 COVID-19 (principal) | CPT/HCPCS: 87635; U0003; U0005 ==

== ENCOUNTER → 2022-08-31 | Outpatient (CLI) | payer BC, MEDICAID, SELFPAY ==
[2022-08-31 13:18] LABS: Prothrombin Time (Protime)PT. 13.2 SECONDS (11.7-14.9)
[2022-08-31 13:19] LABS: Partial Thromboplast Time 26.7 Seconds (24.1-36.2)
[2022-08-31 13:24] LABS: D-Dimer Quantitative (DVT/PE) 0.58 FEU/ug/m (0.27-0.49)
[2022-08-31 13:34] LABS: Anion Gap 6 (5-15); BUN 12 mg/dL (7-18); BUN/Creat Ratio 21.4 RATIO (10-20); Calcium,Total 9.7 mg/dL (8.5-10.1); Chloride 106 mmol/L (98-107); Creatinine, Serum 0.56 mg/dL (0.55-1.02); EST Glomerular Filtration Rate 142 mL/min (>60); Est Glom Filt Rate - Afr Amer 172 mL/min (>60); Glucose 87 mg/dL (74-106); Potassium 4.4 mmol/L (3.5-5.1); Sodium Level 139 mmol/L (136-145)
[2022-08-31 14:08] LABS: BNP,B-Type NATRIURETIC PEPTIDE 3.2 pg/mL (0-100)
--- NOTE | 2022-08-31 15:11 | RAD_ITS ---
INDICATION: Cough and shortness of breath. History of cystic fibrosis. EXAMINATION/TECHNIQUE: X-RAY - XR Chest 2 Views COMPARISON: 2. FINDINGS: LINES/DEVICES: None. LUNGS: No consolidation, edema or effusion. No pneumothorax. MEDIASTINUM AND CARDIOVASCULAR STRUCTURES: Cardiac silhouette not enlarged. Central airways and mediastinal contour are unremarkable. BONES AND SOFT TISSUES: Unremarkable. RAD/Chest PA and Lateral IMPRESSION: No radiographic evidence of acute cardiopulmonary disease. No major interval change. Electronically Signed: Willi Natarajan DO at 16:33 EDT ,
[2022-09-06 14:08] LABS: Dilute Russell Viper Venom 28.9 sec (0.0-47.0); PTT-LA 28.2 sec (0.0-51.9); Thrombin Time 16.5 sec (0.0-23.0); dPT Confirm Ratio 1.05 Ratio (0.00-1.34)
[2022-09-10 14:25] LABS: Antithrombin 3 Function 113 % (75-135); Interpretation Comment: (.); Protein C Antigen 118 % (60-150); Protein S, Free 55 % (61-136); Protein S, Total 68 % (60-150)
== END | disposition home or self-care (01) ==
PROVIDERS: PCP Internal Medicine; Referring Provider Nurse Practitioner Acute Care; Visit Provider Nurse Practitioner Acute Care
DX: R05.9 Cough, unspecified (principal); J96.01 Acute respiratory failure with hypoxia
CPT/HCPCS: 36415; 71046; 80048; 81241; 83880; 85300; 85302; 85305; 85306; 85379; 85610; 85730

== ENCOUNTER 2022-09-25 11:58 | Outpatient (CLI) | payer BC, MEDICAID, SELFPAY ==
[2022-09-25] VITALS (14 sets, daily range): BP systolic 134–154; BP diastolic 63–113; PULSE 90–123; RESP 18; TEMP 36.1–36.6; O2SAT 93–97; BMI 45.7; BMI 47.6
--- NOTE | 2022-10-19 13:38 | OB.TRI.NOTE ---
HPI - General HPI Narrative SHAILA MEJÍA, is a 22 F who presents Maternal Data Information Final KOFFI: 10/18/22 Gestational age: 36&5 PFSH PFSH Medical History 16 weeks gestation of Acute respiratory failure due to COVID-19 Alcohol use Anemia Anemia Anxiety Back pain C. difficile enteritis Cough COVID Cranial neuropathy Depression Dermatitis DVT (deep venous thrombosis) DVT (deep venous thrombosis) Edema Exotropia Heartburn during History of COVID-19 History of malnutrition History of pneumothorax Hx of Clostridium difficile infection Hx of recurrent urinary tract infection Nonsmoker Obesity On home oxygen therapy Ophthalmoplegia of right eye Recurrent pneumothorax after chest tube removed Restless leg Sore throat Sprain and strain of temporomandibular joint Tonsillar enlargement Ventilator associated pneumonia Home Medications aspirin 81 mg tablet,delayed release 81 mg PO DAILY 09/24/22 [History Last Taken 09/25/22 08:30] prenat.vits,jorge alberto,ose-rayi-fjdhf 1 tab PO DAILY 09/24/22 [History Last Taken 09/25/22 08:30] venlafaxine 150 mg capsule,extended release 24 hr 150 mg PO DAILY DEPRESSION 09/24/22 [History Last Taken 09/25/22 08:30] venlafaxine 37.5 mg capsule,extended release 24 hr 37.5 mg PO DAILY DEPRESSION 09/24/22 [History Last Taken 09/25/22 08:30] amoxicillin 875 mg-potassium clavulanate 125 mg tablet 1 tab PO BID 7 days #14 tabs 09/25/22 [Rx Last Taken Unknown] Allergy/AdvReac Type Severity Reaction Status Date / Time No Known Allergies Allergy Verified 09/25/22 13:11 Family History Mother Diabetes Grandmother Hypertension Leukemia Surgical History History of placement of chest tube History of tracheostomy Social History adopted: No household members: significant other housing: house number of children: 0 current occupational status: unemployed history of recent travel: No Smoking Status: Never smoker alcohol intake: former details: rare ETOH prior to COVID infection in July 2021. None currently substance use type: does not use History 1 Elective abortions Hx Para 1 Spontaneous abortions Hx # Term Pregnancies Ectopic pregnancies Hx # Pregnancies Multiple births # of living children 1 Assessment & Plan (1) Post covid-19 condition, unspecified: (2) Headache in : PLAN: Plan NST completed Patient to ED for further evaluation
== END 2022-09-25 13:05 | disposition home or self-care (01) ==
LOC: WPOUT 12:09 → WP 12:09
PROVIDERS: PCP Internal Medicine; Referring Provider Obstetrics & Gynecology; Visit Provider Obstetrics & Gynecology
DX: O26.893 Other specified pregnancy related conditions, third trimester (principal); Z79.82 Long term (current) use of aspirin; R51.9 Headache, unspecified; Z3A.36 36 weeks gestation of pregnancy; U09.9 Post COVID-19 condition, unspecified; Z86.718 Personal history of other venous thrombosis and embolism
CPT/HCPCS: 59050; 99218; 99221; G0378

== ENCOUNTER 2022-09-25 13:11 | Emergency (ER) | payer BC, MEDICAID, SELFPAY ==
[2022-09-25 13:12] VITALS: BP 124/68; PULSE 101; RESP 16; TEMP 36.3; O2SAT 96; BMI 46.5
[2022-09-25 13:55] VITALS: O2SAT 98
--- NOTE | 2022-09-25 15:23 | ED.VIS.DYS ---
HPI History of Present Illness Chief Complaint: Shortness of Breath Informant: patient and spouse/S.O. Onset/Context/Timing Onset: Weeks Context: gradual Timing: Continuous Quality: Positive for Dyspnea on exertion Current Severity: Mild Maximum Severity: Mild Worsened by: Exertion and Coughing Relieved by: Oxygen Associated Symptoms cough, rhinorrhea and green sputum; Negative for ear pain, fever, sore throat or sweats Chest Pain: Positive for None Narrative Narrative: 22-year-old female history of COVID a year ago at that time she had a DVT after being on a ventilator. She also has a history of asthma at a younger age. States has had URI symptoms for about 3 weeks. Was treated with a dose of Zithromax and initially felt somewhat better but is now worse again. Had severe COVID about a year ago was on a ventilator. She is needed oxygen for pulmonary fibrosis intermittently since that time. Denies chest pain or hemoptysis. PE Risk Factors: Positive for Prior DVT or PE; Negative for Cancer, OCP + Smoking + > 35, Recent immobilization, Recent surgery or Recent travel Prior similar symptoms: Yes Recent Illness/Hospitalization: No PFSH PFSH Medical History 16 weeks gestation of Acute respiratory failure due to COVID-19 Alcohol use Anemia Anemia Anxiety Back pain C. difficile enteritis Cough COVID Cranial neuropathy Depression Dermatitis DVT (deep venous thrombosis) DVT (deep venous thrombosis) Edema Exotropia Heartburn during History of COVID-19 History of malnutrition History of pneumothorax Hx of Clostridium difficile infection Hx of recurrent urinary tract infection Nonsmoker Obesity On home oxygen therapy Ophthalmoplegia of right eye Recurrent pneumothorax after chest tube removed Restless leg Sore throat Sprain and strain of temporomandibular joint Tonsillar enlargement Ventilator associated pneumonia Home Medications aspirin 81 mg tablet,delayed release 81 mg PO DAILY 09/24/22 [History Last Taken 09/25/22 08:30] prenat.vits,jorge alberto,[id number] 1 tab PO DAILY 09/24/22 [History Last Taken 09/25/22 08:30] venlafaxine 150 mg capsule,extended release 24 hr 150 mg PO DAILY DEPRESSION 09/24/22 [History Last Taken 09/25/22 08:30] venlafaxine 37.5 mg capsule,extended release 24 hr 37.5 mg PO DAILY DEPRESSION 09/24/22 [History Last Taken 09/25/22 08:30] amoxicillin 875 mg-potassium clavulanate 125 mg tablet 1 tab PO BID 7 days #14 tabs 09/25/22 [Rx Last Taken Unknown] Allergy/AdvReac Type Severity Reaction Status Date / Time No Known Allergies Allergy Verified 09/25/22 13:11 Family History Mother Diabetes Grandmother Hypertension Leukemia Surgical History History of placement of chest tube History of tracheostomy Social History adopted: No household members: significant other housing: house number of children: 0 current occupational status: unemployed history of recent travel: No Smoking Status: Never smoker alcohol intake: former details: rare ETOH prior to COVID infection in July 2021. None currently substance use type: does not use ROS ROS ED ROS Narrative Cough. Shortness of breath. Sputum. Review of Systems ROS Unobtainable: Denies due to encephalopathy Constitutional Constitutional ED: Denies chills or fever(s) Eyes Eyes: Denies blurry vision ENT ENT ED: Denies ear pain Cardiovascular Cardiovascular: Denies chest pain or orthopnea Respiratory/Chest Respiratory/Chest: Reports cough, dyspnea, dyspnea on exertion and sputum; Denies orthopnea Gastrointestinal Gastrointestinal: Denies abdominal pain Genitourinary Genitourinary ED: Denies dysuria or hematuria Musculoskeletal Musculoskeletal: Denies arthralgias Integumentary Denies abscess Neurologic Neurologic: Denies headache(s) Psychiatric Psychiatric: Denies anxiety Endocrine Endocrinology: Denies cold intolerance Hematologic/Lymphatic Hematologic/Lymphatic: Denies easy bleeding Allergic/Immunologic Allergic/Immunologic ED: Denies mouth swelling or tongue swelling EXAM Physical Exam Narrative Exam Narrative: 22-year-old female no acute distress. Vital signs stable respiratory rate 16. On 3 L nasal cannula O2 which she has been on during this her pulse ox is 96% no hypoxia on oxygen. H EENT exam unremarkable. Moist Riis membranes. Neck nontender no lymphadenopathy. Lungs clear to auscultation bilaterally. No rales, rhonchi or wheezing. Equal symmetrical. Heart regular rhythm rate about 101 no murmur. Abdomen soft, gravid uterus nontender. Moving all 4 extremities. Trace edema both lower extremities which she states has been there for the last several months of . Calves are nontender. Neurologically she is awake and alert. No focal motor deficits. Const Vital Signs: 09/25/22 13:12 09/25/22 13:54 09/25/22 13:55 Temperature 97.3 F L Temperature Source Temporal Pulse Rate 101 H Respiratory Rate 16 Respiratory Effort Short of Breath Respiratory Depth Normal Respiratory Pattern Normal Blood Pressure 124/68 H Blood Pressure Mean 86 Pulse Ox 96 Oxygen Delivery Method Nasal Cannula Nasal Cannula Nasal Cannula Oxygen Flow Rate (L/min) 3 3 3 09/25/22 15:36 09/25/22 15:36 09/25/22 16:00 Temperature Temperature Source Pulse Rate 111 H 95 Respiratory Rate 19 H Respiratory Effort Respiratory Depth Respiratory Pattern Blood Pressure Blood Pressure Mean Pulse Ox 98 97 Oxygen Delivery Method Nasal Cannula Nasal Cannula Oxygen Flow Rate (L/min) 3 3 Positive well nourished, well developed and obese; Negative for cachectic, contractures or unkempt General Appearance ED: well developed and NAD; Negative for unkempt, cachectic, contractures or pallor Nutritional Appearance: obese; Negative for cachectic HEENT Reports moist mucous membranes; Denies dry mucous membranes atraumatic; Negative for trauma or tenderness Mouth ED: No dry mucous membranes Mouth: No dry mucous membranes Eyes PERRL and EOMs intact bilaterally General Eye ED: Negative for pale conjunctiva or scleral icterus Neck no lymphadenopathy, supple, no meningeal signs and no JVD Lymph Lymphatic: Negative for other Chest Wall Chest: Negative for other Resp normal respiratory effort and clear to auscultation bilaterally Effort and Inspection: Negative for pain with movement Auscultation: Negative for rales, rhonchi, wheezes or diminished lung sounds Cardio regular rhythm, S1 normal heart sound, S2 normal heart sound and no murmurs; Negative for regular rate Rate: tachycardic Rhythm: Negative for abnormal rhythm GI non-tender, non-distended and no masses GI Narrative: Gravid nontender uterus. Inspection: Negative for other Palpation: soft; Negative for tender or guarding Back/Spine no CVA tenderness and normal to inspection General Back: Negative for CVA tenderness Extremity Negative for normal to inspection General Extremety ED: Yes edema; Negative for tenderness General Extremity: edema Neuro oriented x3 and CN's II-XII intact bilaterally Sensorium / Orientation: alert, oriented to person, oriented to place and oriented to time; Negative for orientation impaired, confused, lethargic or stuporous Speech: speech normal Motor Exam: strength 5/5 throughout Psych mental status grossly normal Appearance: Negative for unkempt Attitude: No agitated and No other Mood & Affect: Negative for depressed, anxious or tearful Thought Process: normal thought process Skin no wounds General Skin Exam: Negative for jaundice or pallor Rashes: no rashes and No rashes noted Trauma: Negative for abrasion or laceration MDM MDM MDM Narrative Medical decision making narrative: 22-year-old female with lung damage ever since she had COVID and was on a ventilator year ago. Complaint is shortness of breath. She is on oxygen for this . She has an upcoming in a week or so. Complaining of shortness of breath. No chest pain. No hemoptysis. She will be treated with 1 DuoNeb aerosol. Chest x-ray will be obtained with shielding of her abdomen and pelvis. She will be tested for COVID and influenza. Repeat exam unchanged at 6:40 PM. She will be started on Augmentin 875 twice daily for 7 days for possible pneumonia. Given first dose here. We went over her test results. Both the COVID and influenza were negative. Chest x-ray was questionable infiltrate versus chronic scarring. Lab Data Attestation: I reviewed the patient's lab results. Lab results narrative: Rapid COVID test negative. Influenza negative. Radiography Chest X-Ray - ED: 1 View and Read by ED Physician Diagnostic Testing: Clinical Impression(s) from Imaging Studies Chest X-Ray 09/25/22 15:43 IMPRESSION: Questionable infiltrate/atelectasis right lung base. Electronically Signed: Oscar Penny MD at 15:56 EST , Discharge Plan Triage Chief Complaint: Shortness of Breath ED Provider: Huy Nicholson Dx/Rx/DC Orders Clinical Impression: Bronchitis, 37 weeks gestation of Instructions: Acute Bronchitis Prescriptions: New amoxicillin-pot clavulanate 875-125 mg tablet 1 tab PO BID 7 Days Qty: 14 0RF No Action aspirin [Aspir-81] 81 mg Tablet,Delayed Release (Dr/Ec) 81 mg PO DAILY venlafaxine 37.5 mg capsule,extended release 24hr 37.5 mg PO DAILY Rx Instructions: Take with 150mg capsule. venlafaxine 150 mg capsule,extended release 24hr 150 mg PO DAILY prenat.vits,jorge alberto,[id number]-ossf-[id number] Tablet 1 tab PO DAILY Primary Care Provider: Darrell Mendoza Referrals: Darrell Mendoza MD [Primary Care Provider] - Samara Woo MD [Med Staff - Active Staff] - As soon as possible Activity Restrictions/Additional Instructions: Augmentin 1 pill twice a day with food on your stomach. Plenty of fluids and rest. Follow-up with your [employer]. Disposition Disposition: Home, Self Care
[2022-09-25] MEDS: Ipratropium/Albuterol Sulfate 3 ML AMPUL.NEB INHALATION (15:35)
[2022-09-25 15:36] VITALS: PULSE 111; RESP 19; O2SAT 98
--- NOTE | 2022-09-25 15:43 | RAD_ITS ---
EXAM: XR CHEST, 1 VIEW CLINICAL INDICATION: sob and cough. Shield abd TECHNIQUE: Frontal view of the chest. This report was created using [employer] report generation technology. COMPARISON: None. FINDINGS: LUNGS AND PLEURAL SPACES: Question minimal infiltrate or atelectasis at the right lung base. No pneumothorax. No effusion. HEART: Normal heart size. MEDIASTINUM: No mediastinal or hilar mass. BONES/JOINTS: No acute abnormality. SOFT TISSUES: Normal. RAD/Chest 1 View (Portable) IMPRESSION: Questionable infiltrate/atelectasis right lung base. Electronically Signed: Oscar Penny MD at 15:56 EST ,
[2022-09-25 16:00] VITALS: PULSE 95; O2SAT 97
[2022-09-25] MEDS: Amox/Clavulanate 875 MG Tablet PO (18:50)
== END 2022-09-25 18:51 | disposition home or self-care (01) ==
PROVIDERS: Emergency Provider Emergency Medicine; PCP Internal Medicine; Visit Provider Emergency Medicine
DX: O99.513 Diseases of the respiratory system complicating pregnancy, third trimester (principal); O99.213 Obesity complicating pregnancy, third trimester; J40 Bronchitis, not specified as acute or chronic; E66.9 Obesity, unspecified; Z86.16 Personal history of COVID-19; Z99.81 Dependence on supplemental oxygen; Z79.82 Long term (current) use of aspirin; Z3A.37 37 weeks gestation of pregnancy
CPT/HCPCS: 59050; 71045; 87428; 94640; 99221; 99283; G0378

== ENCOUNTER → 2022-11-16 | Outpatient (CLI) | payer BC, MEDICAID, SELFPAY ==
--- NOTE | 2022-11-16 14:10 | PFTCOMP ---
COMPLETE PULMONARY FUNCTION TEST INTERPRETATION Brief HPI: Patient is a 22-year-old female, currently under the care of Dr. Lee, who presents to [facility] for complete pulmonary function tests secondary to diagnosis of post COVID. Respiratory therapist reports good effort and reproducible results. Interpretation: Forced expiration spirometry shows no large airways obstructive ventilatory defect with an FEV1 of 79% predicted. There is no significant bronchodilator response by strict ATS criteria. Spirograms are of good quality and plateau normally. The respiratory flow volume loop shows a normal pattern. Lung volumes by body plethysmography show a slightly decreased total lung capacity at 4.98 L, 75% predicted. All other lung volumes are reduced symmetrically. Diffusion capacity by carbon monoxide is decreased at 66% predicted. The airway resistance is normal. Compared to previous pulmonary function tests from 12/25/2021, there has been a significant improvement in all measured values and air-trapping. Impression: Mild restrictive ventilatory defect with a symmetric reduction diffusing capacity, but significant improvement compared to 2021
== END | disposition home or self-care (01) ==
LOC: PSN 10:57
PROVIDERS: PCP Internal Medicine; Referring Provider Internal Medicine Critical Care Medicine; Visit Provider Internal Medicine Critical Care Medicine
DX: U09.9 Post COVID-19 condition, unspecified (principal)
CPT/HCPCS: 94060; 94726; 94729

== ENCOUNTER → 2022-11-18 | Outpatient (CLI) | payer BC, MEDICAID, SELFPAY ==
[2022-11-18 13:00] VITALS: PULSE 117; PULSE 118; PULSE 121; PULSE 127; PULSE 132; PULSE 135; PULSE 137; PULSE 92; O2SAT 88; O2SAT 89; O2SAT 93; O2SAT 94; O2SAT 96
--- NOTE | 2022-11-18 13:39 | CPS ---
Pt pushed baby stroller while walking. At 3 minutes into walk pt saturation dropped to 88%. Pt was placed on 1 lpm. Pt finished walk on 1 lpm.
--- NOTE | 2022-11-19 05:52 | PCM.PSN.6M ---
PSN 6 Minute Walk Test 6 Minute Walk Test 6 Minute Walk Test: 6 Minute Walk Test PSN:6-Minute Walk Test Start: 11/18/22 13:34 Freq: Status: Active Protocol: [id number].6MINW Document 11/18/22 13:[address] [facility] (Rec: 11/18/22 13:[address] [facility] [id number]) 6 Minute Walk Test Date Performed 11/18/22 Time Performed 13:00 Height 5 ft 10 in Weight: 136.078 kg Weight in Pounds 300.[address]: Dr Lee Assistive device used: Walker Pre-test Oxygen Delivery Method Room Air Pulse Ox (%) 94 Pulse Rate (60-100 beats/min) 118 H Dyspnea Carmelina Scale (0-10) 0 Exertion Carmelina Scale (6-20) 6 1st minute Oxygen Delivery Method Room Air Pulse Ox (%) 89 Pulse Rate (60-100 beats/min) 135 H 2nd minute Oxygen Delivery Method Room Air Pulse Ox (%) 93 Pulse Rate (60-100 beats/min) 132 H 3rd minute Oxygen Delivery Method Room Air Pulse Ox (%) 88 Pulse Rate (60-100 beats/min) 137 H Dyspnea Carmelina Scale (0-10) 0.5 Exertion Carmelina Scale (6-20) 11 4th minute Oxygen Flow Rate (L/min) (L/min) 1 Oxygen Delivery Method Nasal Cannula Pulse Ox (%) 94 Pulse Rate (60-100 beats/min) 121 H 5th minute Oxygen Flow Rate (L/min) (L/min) 1 Oxygen Delivery Method Nasal Cannula Pulse Ox (%) 93 Pulse Rate (60-100 beats/min) 127 H 6th minute Oxygen Flow Rate (L/min) (L/min) 1 Oxygen Delivery Method Nasal Cannula Pulse Rate (60-100 beats/min) 92 Dyspnea Carmelina Scale (0-10) 127 Exertion Carmelina Scale (6-20) 1 Number of Rests Taken 11 Post-test Oxygen Flow Rate (L/min) (L/min) 1 Oxygen Delivery Method Nasal Cannula Pulse Ox (%) 96 Pulse Rate (60-100 beats/min) 117 H Full Laps Walked 14 Partial Lap, Number of Tiles Walked 23 Total Distance Walked (ft) 849 11/18/22 13:39 Cardiopulmonary Services by Teresa Arambula Pt pushed baby stroller while walking. At 3 minutes into walk pt saturation dropped to 88%. Pt was placed on 1 lpm. Pt finished walk on 1 lpm. Initialized on 11/18/22 13:39 - END OF NOTE Interpretation Interpretation: The patient was noted to be 94% on room air at rest. Unfortunately, patient did desaturate to 88% in the third minute of ambulation was placed on 1 L/min with improvement in saturations. Patient did have persistent tachycardia throughout testing with a peak heart rate of 137 bpm. In total, the patient traveled 849 feet over the course of 6 minutes with the assistance of pushing a baby stroller. These findings are consistent with a cardiovascular limitation exercise tolerance. Recommendations Recommendations: Patient requires no supplemental oxygen at rest, but should be using at least 1 L/min of supplemental oxygen with any ambulation.
== END | disposition home or self-care (01) ==
LOC: PSN 12:58
PROVIDERS: PCP Internal Medicine; Visit Provider Internal Medicine Critical Care Medicine
DX: U09.9 Post COVID-19 condition, unspecified (principal)
CPT/HCPCS: 94618

== ENCOUNTER → 2022-12-08 | Outpatient (CLI) | payer BC, MEDICAID, SELFPAY ==
[2022-12-08 12:16] LABS: Absolute Lymphocyte Count 2.58 X10^3/uL (0.83-4.51); Absolute Neutrophil Count 4.2 X10^3/uL (2.0-7.7); Basophil# 0.04 X10^3/uL; Basophil% 0.5 % (0-1); Eosinophil# 0.26 X10^3/uL; Eosinophils% 3.5 % (0-5); Hematocrit 44.9 % (37-47); Hemoglobin 14.2 g/dL (12.0-15.0); Lymphocyte # 2.58 X10^3/ul (0.83-4.51); Lymphocyte % 34.6 % (19-41); Mean Corp Hgb Conc 31.6 g/dL (32-36); Mean Corpuscular Volume 85.4 fL (81-99); Mean Platelet Vol. 11.2 fl (6.2-12.0); Monocyte# 0.39 X10^3/uL; Monocyte% 5.2 % (0-10); NRBC Flagged by Analyzer 0 % (0-5); Neutrophil # 4.16 X10^3/uL (2.7-7.7); Neutrophil % 55.8 % (47-70); Platelet Count 265 K/mm3 (150-450); RBC Distribution Width CV 13.1 % (11.6-14.6); RBC Distribution Width SD 40.6 fl (35.1-43.9); Red Blood Count 5.26 M/mm3 (4.2-5.4); White Blood Count 7.5 K/mm3 (4.4-11.0)
[2022-12-08 12:38] LABS: Vitamin B12 533 pg/mL (211-911); Vitamin D,25 Hydroxy 33.3 ng/mL
[2022-12-08 12:59] LABS: ALB/GLOB Ratio 1.1 RATIO (0.9-2.4); AST(SGOT) 27 U/L (15-37); Alanine Aminotransfer ALT/SGPT 48 U/L (13-56); Albumin, Serum 3.9 g/dL (3.2-5.0); Alkaline Phosphatase 74 U/L (45-117); Anion Gap 6 (5-15); BUN 15 mg/dL (7-18); BUN/Creat Ratio 16.1 RATIO (10-20); Calcium,Total 9.6 mg/dL (8.5-10.1); Chloride 107 mmol/L (98-107); Creatinine, Serum 0.93 mg/dL (0.55-1.02); EST Glomerular Filtration Rate 79 mL/min (>60); Est Glom Filt Rate - Afr Amer 95 mL/min (>60); Globulin 3.7 g/dL (2.2-4.2); Glucose 86 mg/dL (74-106); Protein, Total 7.6 g/dL (6.4-8.2); Sodium Level 142 mmol/L (136-145); Thyroid Stim Hormone (TSH) 1.35 uIU/mL (0.358-3.74)
== END | disposition home or self-care (01) ==
LOC: BIMLAB 11:30
PROVIDERS: Nurse Practitioner Family; PCP Internal Medicine; Referring Provider Internal Medicine; Visit Provider Internal Medicine
DX: R53.83 Other fatigue (principal); F53.0 Postpartum depression; E56.9 Vitamin deficiency, unspecified
CPT/HCPCS: 36415; 80053; 82306; 82607; 84443; 85025

== ENCOUNTER → 2022-12-22 | Outpatient (CLI) | payer BC, MEDICAID, SELFPAY | END | disposition home or self-care (01) | LOC: LABSPEC 12:18 | PROVIDERS: PCP Internal Medicine; Referring Provider Nurse Practitioner Family; Visit Provider Nurse Practitioner Family | DX: J06.9 Acute upper respiratory infection, unspecified (principal) | CPT/HCPCS: 87070; 87205 ==

== ENCOUNTER → 2023-03-09 | Outpatient (CLI) | payer BC, MEDICAID, SELFPAY | END | disposition home or self-care (01) | LOC: SL 20:11 | PROVIDERS: PCP Internal Medicine; Referring Provider Nurse Practitioner Acute Care; Visit Provider Nurse Practitioner Acute Care | DX: G47.10 Hypersomnia, unspecified (principal) | CPT/HCPCS: 95810 ==

== ENCOUNTER → 2023-03-24 | Outpatient (CLI) | payer BC, MEDICAID, SELFPAY | END | disposition home or self-care (01) | LOC: SL 08:34 | PROVIDERS: PCP Internal Medicine; Visit Provider Internal Medicine Critical Care Medicine | DX: G47.33 Obstructive sleep apnea (adult) (pediatric) (principal) ==

== ENCOUNTER → 2023-04-06 | Outpatient (CLI) | payer BC, MEDICAID, SELFPAY | END | disposition home or self-care (01) | LOC: LABSPEC 16:01 | PROVIDERS: PCP Internal Medicine; Referring Provider Otolaryngology; Visit Provider Otolaryngology | DX: J32.1 Chronic frontal sinusitis (principal) | CPT/HCPCS: 87070 ==

== ENCOUNTER 2023-04-23 10:46 | Emergency (ER) | payer BC, MEDICAID, SELFPAY ==
[2023-04-23 10:47] VITALS: BP 134/85; PULSE 95; RESP 15; TEMP 36.3; O2SAT 100; BMI 46.0
--- NOTE | 2023-04-23 11:13 | EX.ED.DYSGE1 ---
HPI <BREE Turner - Last Filed: 04/23/23 11:50> History of Present Illness Chief Complaint: Diarrhea Narrative Narrative: 23-year-old female hashad 5 days of nausea and diarrhea. The first it started the diarrhea was every 1-2 hours but now it slowed to about twice a day. She is tolerating p.o. intake but still feels very nauseous and is concerned she could be dehydrated. She has had intermittent generalized abdominal cramping but no significant pain. No fever, chills, or upper respiratory symptoms. Denies blood in her stool or urinary symptoms. No recent travel, different foods, or antibiotics. Her family had similar symptoms but it only lasted about a day. PFS <BREE Turner - Last Filed: 04/23/23 11:50> [facility] Medical History 16 weeks gestation of Acute respiratory failure due to COVID-19 Alcohol use Anemia Anemia Anxiety Back pain C. difficile enteritis Cough COVID Cranial neuropathy Depression Dermatitis DVT (deep venous thrombosis) DVT (deep venous thrombosis) Edema Exotropia Fatigue Heartburn during History of COVID-19 History of malnutrition History of pneumothorax Hx of Clostridium difficile infection Hx of recurrent urinary tract infection Nonsmoker Obesity On home oxygen therapy Ophthalmoplegia of right eye Post depression Recurrent pneumothorax after chest tube removed Restless leg Sore throat Sprain and strain of temporomandibular joint Tonsillar enlargement URI (upper respiratory infection) Ventilator associated pneumonia Home Medications prenat.vits,jorge alberto,[id number] 1 tab PO DAILY 09/24/22 [History Last Taken 09/25/22 08:30] biotin 1 mg capsule 1 mg PO DAILY 02/02/23 [History Last Taken Unknown] albuterol sulfate 90 mcg/actuation aerosol inhaler 2 puff inhalation Q4H PRN shortness of breath or wheezing #8.5 grams 03/07/23 [Rx Last Taken Unknown] budesonide-formoterol HFA 160 mcg-4.5 mcg/actuation aerosol inhaler (Symbicort) 2 puff inhalation BID #10.2 grams 03/07/23 [Rx Last Taken Unknown] cholecalciferol (vitamin D3) 25 mcg (1,000 unit) capsule 25 mcg PO DAILY 03/07/23 [History Last Taken Unknown] venlafaxine 150 mg capsule,extended release 24 hr See Rx Instructions .Route .COMPLEX 04/06/23 [History Last Taken Unknown] venlafaxine 75 mg capsule,extended release 24 hr 75 mg PO QPM DEPRESSION 04/06/23 [History Last Taken Unknown] ondansetron 4 mg disintegrating tablet 4 mg PO Q8H PRN PRN Nausea #10 tabs 04/23/23 [Rx Last Taken Unknown] Allergy/AdvReac Type Severity Reaction Status Date / Time No Known Allergies Allergy Verified 04/23/23 11:22 Family History Mother Diabetes Grandmother Hypertension Leukemia Surgical History History of placement of chest tube History of tracheostomy Social History adopted: No household members: significant other housing: house number of children: 0 current occupational status: unemployed history of recent travel: No Smoking Status: Never smoker alcohol intake: former details: rare ETOH prior to COVID infection in July 2021. None currently substance use type: does not use ROS <BREE Turner - Last Filed: 04/23/23 11:50> ROS ED ROS Narrative Constitutional: Negative for fever, chills, malaise. ENT: Negative for sore throat, rhinorrhea. CVS: Negative for palpitations, chest pain. Respiratory: Negative for shortness of breath, cough. GI: Positive for abdominal pain, nausea, diarrhea. Negative for vomiting, constipation, melena, hematochezia. : Negative for dysuria, hematuria or frequency. Neuro: Negative for headache. EXAM <BREE Turner - Last Filed: 04/23/23 11:50> Physical Exam Narrative Exam Narrative: CONST: Patient sitting in no acute distress. EYES: Normal inspection. ENT: Normal inspection, moist mucous membranes. NECK: Normal inspection. RESP: No respiratory distress, CTAB. CVS: Regular rate and rhythm, no murmur, no gallop. ABD: Soft and nontender, no guarding or rebound, nondistended, no hepatosplenomegaly. SKIN: Color normal, no rash, warm, dry, intact. EXTREMITIES: Normal appearance, no pedal edema. NEURO: Oriented x4. PSYCH: Normal affect. Const Vital Signs: 04/23/23 10:47 Temperature 97.3 F L Temperature Source Temporal Pulse Rate 95 Respiratory Rate 15 Blood Pressure 134/85 H Blood Pressure Mean 101 Pulse Ox 100 Oxygen Delivery Method Room Air <Dr. Grant Maharaj, - Last Filed: 04/23/23 12:00> Physical Exam Const Vital Signs: 04/23/23 10:47 Temperature 97.3 F L Temperature Source Temporal Pulse Rate 95 Respiratory Rate 15 Blood Pressure 134/85 H Blood Pressure Mean 101 Pulse Ox 100 Oxygen Delivery Method Room Air MDM <Rebeka Harmon PA - Last Filed: 04/23/23 11:50> [facility] Narrative Medical decision making narrative: Patient has had 5 days of nausea and diarrhea which is slowly improving. She appears well and nontoxic and is afebrile with normal vital signs. She has moist mucous membranes and a soft, nontender abdomen. She was given a liter of IV fluids and BMP obtained which is only remarkable for potassium of 3.2 which was replaced here. I prescribed Zofran for home recommended increased hydration and discussed the usual course of viral diarrhea. She was given return precautions and discharged in stable condition. Viral gastroenteritis, bacterial diarrhea, C. difficile, diverticulitis I considered a CT abdomen/pelvis but she has no abdominal pain or tenderness and is afebrile Lab Data Attestation: I reviewed the patient's lab results. Labs: Laboratory Results - last 24 hr 04/23/23 11:17 Sodium 139 Potassium 3.2 L Chloride 110 H Carbon Dioxide 25.0 Anion Gap 4 L BUN 13 Creatinine 0.81 Estim Creat Clear Calc 119.70 Est GFR (MDRD) Af Amer 111 Est GFR (MDRD) Non-Af 92 BUN/Creatinine Ratio 16.0 Glucose 95 Calcium 8.9 <Dr. Grant Maharaj, DO - Last Filed: 04/23/23 12:00> [facility] Narrative Medical decision making narrative: Patient has had 5 days of nausea and diarrhea which is slowly improving. She appears well and nontoxic and is afebrile with normal vital signs. She has moist mucous membranes and a soft, nontender abdomen. She was given a liter of IV fluids and BMP obtained which is only remarkable for potassium of 3.2 which was replaced here. I prescribed Zofran for home recommended increased hydration and discussed the usual course of viral diarrhea. She was given return precautions and discharged in stable condition. Viral gastroenteritis, bacterial diarrhea, C. difficile, diverticulitis I considered a CT abdomen/pelvis but she has no abdominal pain or tenderness and is afebrile This patient was seen with a PA/DIRECTOR OF ARCHITECTURE Individually assessed they patient including history and physical. I have reviewed everything on the chart that is available and agree with the documentation provided by the PA/DIRECTOR OF ARCHITECTURE including discussion about the assessment, treatment plan, discussion, and return precautions. Well-appearing 23-year-old female with improving diarrhea requesting IV fluids. BMP was obtained which shows potassium of 3.2. Otherwise unremarkable. Potassium repleted. Patient received her full liter IV fluids. Discharged in stable condition. Lab Data Labs: Laboratory Results - last 24 hr 04/23/23 11:17 Sodium 139 Potassium 3.2 L Chloride 110 H Carbon Dioxide 25.0 Anion Gap 4 L BUN 13 Creatinine 0.81 Estim Creat Clear Calc 119.70 Est GFR (MDRD) Af Amer 111 Est GFR (MDRD) Non-Af 92 BUN/Creatinine Ratio 16.0 Glucose 95 Calcium 8.9 Discharge Plan Triage Chief Complaint: Diarrhea ED Midlevel Provider: Rebeka Harmon ED Provider: Grant Maharaj Dx/Rx/DC Orders Clinical Impression: Acute diarrhea, Acute hypokalemia Instructions: ED Diarrhea, Viral (Adult) Prescriptions: New ondansetron 4 mg tablet,disintegrating 4 mg PO Q8H PRN PRN (Reason: Nausea) Qty: 10 0RF No Action cholecalciferol (vitamin D3) 25 mcg (1,000 unit) capsule 25 mcg PO DAILY budesonide-formoterol [Symbicort] 160-4.5 mcg/actuation HFA aerosol inhaler 2 puff inhalation BID Qty: 10.2 11RF albuterol sulfate 90 mcg/actuation HFA aerosol inhaler 2 puff inhalation Q4H PRN (Reason: shortness of breath or wheezing) Qty: 8.5 6RF Rx Instructions: administer with spacer biotin 1 mg capsule 1 mg PO DAILY venlafaxine 150 mg capsule,extended release 24hr See Rx Instructions .ROUTE .COMPLEX Dose Instruction: take 1 capsule by mouth once daily Rx Instructions: take 1 capsule by mouth once daily in a.m venlafaxine 75 mg capsule,extended release 24hr 75 mg PO QPM Rx Instructions: Take with 150mg capsule. prenat.vits,jorge alberto,[id number] Tablet 1 tab PO DAILY Primary Care Provider: Darrell Mendoza Referrals: Darrell Mendoza MD [Primary Care Provider] - Activity Restrictions/Additional Instructions: I prescribed nausea medicine to take as needed. Drink plenty of fluids. Most viral diarrhea resolves on its own within 7 to 10 days. Return to ER if symptoms worsen. Disposition Disposition: Home, Self Care
[2023-04-23] MEDS: 0.9% Normal Saline 1,000 ML 999 ML IV (11:24)
[2023-04-23] MEDS: Ondansetron 4 MG/2 ML Vial IV (11:24)
[2023-04-23 11:37] LABS: Anion Gap 4 (5-15); BUN 13 mg/dL (7-18); Calcium,Total 8.9 mg/dL (8.5-10.1); Chloride 110 mmol/L (98-107); Creatinine, Serum 0.81 mg/dL (0.55-1.02); EST Glomerular Filtration Rate 92 mL/min (>60); Est Glom Filt Rate - Afr Amer 111 mL/min (>60); Glucose 95 mg/dL (74-106); Potassium 3.2 mmol/L (3.5-5.1); Sodium Level 139 mmol/L (136-145)
[2023-04-23] MEDS: Potassium Chloride Oral Tablet 20 MEQ 40 MEQ PO (11:45)
[2023-04-23 12:03] VITALS: BP 151/89; PULSE 94; RESP 18; O2SAT 98
== END 2023-04-23 12:05 | disposition home or self-care (01) ==
PROVIDERS: Physician Assistant; Emergency Provider Student in an Organized Health Care Education/Training Program; PCP Internal Medicine; Visit Provider Student in an Organized Health Care Education/Training Program
DX: R19.7 Diarrhea, unspecified (principal); E87.6 Hypokalemia
CPT/HCPCS: 80048; 96361; 96374; 99284; J7030; A4216; J2405

== ENCOUNTER → 2023-05-27 | Outpatient (CLI) | payer BC, MEDICAID, SELFPAY ==
[2023-05-27 12:53] VITALS: PULSE 107; PULSE 108; PULSE 111; PULSE 112; PULSE 116; PULSE 118; PULSE 134; PULSE 94; O2SAT 89; O2SAT 90; O2SAT 91; O2SAT 92; O2SAT 96; O2SAT 97
--- NOTE | 2023-05-28 07:45 | WT_ITS ---
PSN 6 Minute Walk Test 6 Minute Walk Test 6 Minute Walk Test: 6 Minute Walk Test PSN:6-Minute Walk Test Start: 05/27/23 12:52 Freq: Status: Active Protocol: [id number] Document 05/27/23 12:53 [facility] (Rec: 05/27/23 12:57 [facility] [id number]) 6 Minute Walk Test Date Performed 05/27/23 Time Performed 12:30 Height 5 ft 11 in Weight: 338 lb Weight in Pounds 338.[address]: Dr Lee Assistive device used: None Pre-test Oxygen Delivery Method Room Air Pulse Ox 97 Pulse Rate (60-100) 108 H Dyspnea Carmelina Scale (0-10) 0 Exertion Carmelina Scale (6-20) 6 1st minute Oxygen Delivery Method Room Air Pulse Ox 92 Pulse Rate (60-100) 107 H 2nd minute Oxygen Delivery Method Room Air Pulse Ox 90 Pulse Rate (60-100) 94 3rd minute Oxygen Delivery Method Room Air Pulse Ox 89 Pulse Rate (60-100) 134 H 4th minute Oxygen Delivery Method Room Air Pulse Ox 89 Pulse Rate (60-100) 116 H 5th minute Oxygen Delivery Method Room Air Pulse Ox 91 Pulse Rate (60-100) 111 H 6th minute Oxygen Delivery Method Room Air Pulse Ox 89 Pulse Rate (60-100) 112 H Dyspnea Carmelina Scale (0-10) 0.5 Exertion Carmelina Scale (6-20) 8 Post-test Oxygen Delivery Method Room Air Pulse Ox 96 Pulse Rate (60-100) 118 H Full Laps Walked 13 Partial Lap, Number of Tiles Walked 10 Total Distance Walked (ft) 777 Interpretation Interpretation: The patient ambulated 777 feet over the course of 6 minutes beginning on room air without assistive devices. Pretesting oxygen saturation was noted to be 97% on room air. With ambulation, the theodore oxygen saturation was 89%. This represents a significant exertional oxygen desaturation, consistent with a pulmonary limitation to exercise tolerance. Recommendations Recommendations: There is no indication for the use of supplemental oxygen at this time. However, close interval follow-up was recommended, given the degree of oxygen desaturation noted during this study.
== END | disposition home or self-care (01) ==
LOC: PSN 12:29
PROVIDERS: PCP Internal Medicine; Referring Provider Internal Medicine Critical Care Medicine; Visit Provider Internal Medicine Critical Care Medicine
DX: J96.11 Chronic respiratory failure with hypoxia (principal)
CPT/HCPCS: 94618

== ENCOUNTER → 2023-06-06 | Outpatient (CLI) | payer BC, MEDICAID, SELFPAY ==
[2023-06-06 12:59] LABS: Anion Gap 5 (5-15); BUN 13 mg/dL (7-18); BUN/Creat Ratio 13.1 RATIO (10-20); Calcium,Total 9.5 mg/dL (8.5-10.1); Chloride 107 mmol/L (98-107); Creatinine, Serum 0.99 mg/dL (0.55-1.02); EST Glomerular Filtration Rate 73 mL/min (>60); Est Glom Filt Rate - Afr Amer 89 mL/min (>60); Glucose 85 mg/dL (74-106); Potassium 4.4 mmol/L (3.5-5.1); Sodium Level 141 mmol/L (136-145)
== END | disposition home or self-care (01) ==
LOC: BIMLAB 10:59
PROVIDERS: PCP Internal Medicine; Referring Provider Internal Medicine; Visit Provider Internal Medicine
DX: E87.6 Hypokalemia (principal)
CPT/HCPCS: 36415; 80048

== ENCOUNTER 2023-12-31 21:38 | Emergency (ER) | payer BC, SELFPAY ==
[2023-12-31 21:39] VITALS: BP 135/89; PULSE 98; RESP 15; TEMP 36.3; O2SAT 97; BMI 49.5
[2023-12-31 22:14] VITALS: BP 120/66; PULSE 91; RESP 18; O2SAT 93
[2023-12-31] MEDS: dexAMETHasone 10 MG/ML Vial PO.IVFORM (22:49)
[2023-12-31] MEDS: Benzonatate 100 MG Capsule 200 MG PO (22:52)
[2023-12-31 23:02] VITALS: PULSE 102; RESP 20
[2023-12-31] MEDS: Ipratropium/Albuterol Sulfate 3 ML AMPUL.NEB INHALATION (23:02)
--- NOTE | 2023-12-31 23:45 | RAD_ITS ---
EXAM: XR CHEST, 2 VIEWS CLINICAL INDICATION: cough TECHNIQUE: Frontal and lateral views of the chest. COMPARISON: 09/25/22. FINDINGS: LUNGS AND PLEURAL SPACES: Unremarkable. No consolidation or edema. No pneumothorax. No effusion. HEART: Unremarkable. Cardiac silhouette not enlarged. MEDIASTINUM: Central airways and mediastinal contour are unremarkable. BONES/JOINTS: Unremarkable. No acute fracture. SOFT TISSUES: Unremarkable. RAD/Chest PA and Lateral IMPRESSION: No radiographic evidence of acute cardiopulmonary disease. Electronically Signed: Macario Huerta MD at 1:03 EST ,
[2024-01-01 01:34] VITALS: PULSE 99; RESP 23; O2SAT 91
--- NOTE | 2024-01-01 01:34 | EX.ED.DYSGE1 ---
HPI History of Present Illness Chief Complaint: Shortness of Breath Informant: patient and spouse/S.O. Narrative Narrative: Patient is a 23-year-old female with past medical history of COVID-19 pneumonia leading to respiratory failure with need for intubation and ARDS as well as right-sided pneumothorax secondary to spontaneous rupture with PEEP from the ventilator. She states this occurred roughly 2 years ago. She states since that time she is always mildly short of breath but that her was recently sick and now she has had 3 to 4 days of congestion and cough and increased shortness of breath sensation and with this comes in with concern for potential pneumonia and/or pneumothorax. [facility] Medical History 16 weeks gestation of Acute respiratory failure due to COVID-19 Alcohol use Anemia Anemia Anxiety Back pain C. difficile enteritis Cough COVID Cranial neuropathy Depression Dermatitis DVT (deep venous thrombosis) DVT (deep venous thrombosis) Edema Exotropia Fatigue Heartburn during History of COVID-19 History of malnutrition History of pneumothorax Hx of Clostridium difficile infection Hx of recurrent urinary tract infection Hypokalemia Nonsmoker Obesity On home oxygen therapy Ophthalmoplegia of right eye Post depression Recurrent pneumothorax after chest tube removed Restless leg Sore throat Sprain and strain of temporomandibular joint Tonsillar enlargement URI (upper respiratory infection) Ventilator associated pneumonia Home Medications prenat.vits,jorge alberto,[id number] 1 tab PO DAILY 09/24/22 [History Last Taken 09/25/22 08:30] albuterol sulfate 90 mcg/actuation aerosol inhaler 2 puff inhalation Q4H PRN shortness of breath or wheezing #8.5 grams 03/07/23 [Rx Last Taken Unknown] budesonide-formoterol HFA 160 mcg-4.5 mcg/actuation aerosol inhaler (Symbicort) 2 puff inhalation BID #10.2 grams 03/07/23 [Rx Last Taken Unknown] cholecalciferol (vitamin D3) 25 mcg (1,000 unit) capsule 25 mcg PO DAILY 03/07/23 [History Last Taken Unknown] ondansetron 4 mg disintegrating tablet 4 mg PO Q8H PRN PRN Nausea #10 tabs 04/23/23 [Rx Last Taken Unknown] venlafaxine 150 mg capsule,extended release 24 hr See Rx Instructions .Route .COMPLEX #90 CAPSULES 07/22/23 [Rx Last Taken Unknown] venlafaxine 75 mg capsule,extended release 24 hr See Rx Instructions .Route .COMPLEX #90 caps 10/18/23 [Rx Last Taken Unknown] albuterol sulfate 0.63 mg/3 mL solution for nebulization 0.63 mg (3 mL) inhalation Q4H PRN shortness of breath or wheezing #90 mL 01/01/24 [Rx Last Taken Unknown] azithromycin 250 mg tablet (Zithromax Z-Major) See Rx Instructions PO .COMPLEX #6 tabs 01/01/24 [Rx Last Taken Unknown] benzonatate 200 mg capsule 200 mg PO TID PRN cough #30 caps 01/01/24 [Rx Last Taken Unknown] prednisone 20 mg tablet 40 mg (2 x 20 mg) PO DAILY 5 days #10 tabs 01/01/24 [Rx Last Taken Unknown] Allergy/AdvReac Type Severity Reaction Status Date / Time No Known Allergies Allergy Verified 12/31/23 21:44 Family History Mother Diabetes Grandmother Hypertension Leukemia Surgical History History of placement of chest tube History of tracheostomy Social History adopted: No household members: significant other housing: house number of children: 0 current occupational status: unemployed history of recent travel: No Smoking Status: Never smoker alcohol intake: former details: rare ETOH prior to COVID infection in July 2021. None currently substance use type: does not use ROS ROS ED Constitutional Constitutional ED: Denies chills or fever(s) ENT ENT ED: Reports rhinorrhea and sore throat Cardiovascular Cardiovascular: Denies chest pain Respiratory/Chest Respiratory/Chest: Reports cough and dyspnea Gastrointestinal Gastrointestinal: Denies abdominal pain, diarrhea, nausea or vomiting Genitourinary Genitourinary ED: Denies dysuria Musculoskeletal Musculoskeletal: Denies myalgias Integumentary Denies rash Neurologic Neurologic: Denies headache(s) Hematologic/Lymphatic Hematologic/Lymphatic: Denies easy bleeding or easy bruising EXAM Physical Exam Const Vital Signs: 12/31/23 21:39 12/31/23 22:14 12/31/23 22:14 Temperature 97.3 F L Temperature Source Temporal Pulse Rate 98 91 Respiratory Rate 15 18 Respiratory Effort Normal Non-Labored Respiratory Pattern Normal Blood Pressure 135/89 H 120/66 Blood Pressure Mean 104 84 Pulse Ox 97 93 Oxygen Delivery Method Room Air Room Air 12/31/23 23:02 01/01/24 01:34 01/01/24 01:41 Temperature 98.4 F Temperature Source Pulse Rate 102 H 99 103 H Respiratory Rate 20 H 23 H 21 H Respiratory Effort Respiratory Pattern Normal Blood Pressure 122/60 H Blood Pressure Mean 80 Pulse Ox 91 90 Oxygen Delivery Method Room Air Positive well nourished, well developed and obese General Appearance ED: well developed; Negative for pallor Nutritional Appearance: obese HEENT HEENT Narrative: Nasal mucosa is hyperemic and boggy with enlarged inferior nasal turbinates There is cobblestoning the posterior pharynx consistent with sinus drainage without airway edema or compromise No secondary changes in the posterior pharynx to suggest infection Eyes PERRL and EOMs intact bilaterally General Eye ED: Negative for pale conjunctiva or scleral icterus Neck supple and no JVD Neck Narrative: No nuchal rigidity or meningeal signs noted Chest Wall palpation of chest normal Chest Narrative: No bony deformity or crepitance Resp Resp Narrative: Patient has mild increased work of breathing with slight tachypnea and accessory muscle use and breath sounds are diminished throughout with faint rhonchi in the bilateral lower lobes greatest on the right Cardio regular rate and regular rhythm Rate: other Other Details: Radial and carotid pulses are equal and symmetric Extremity normal to inspection Extremity Narrative: No asymmetric edema no pitting edema negative Homans' sign bilaterally Neuro oriented x3, CN's II-XII intact bilaterally and no sensory deficits noted Sensorium / Orientation: alert Motor Exam: strength 5/5 throughout Psych mental status grossly normal Skin no rashes or lesions noted General Skin Exam: Negative for jaundice or pallor MDM MDM MDM Narrative Medical decision making narrative: Patient arrived to the ER and just mild respiratory distress with slight tachypnea and accessory muscle use but otherwise was satting in the mid 90s on room air. Constellation of symptoms is concerning for upper respiratory infection secondary to COVID versus influenza versus RSV but there is also concern for pneumonia and or pneumothorax and therefore chest x-ray was added. Viral swab was negative and chest x-ray revealed no acute infiltrate or pneumothorax. The patient was satting in the mid 90s at rest. With ambulation she would drop to approximately 86% however once she sat back down and rested she quickly returned into the mid 90s over the course of 1 to 5 minutes. Based on the patient's previous history of pneumonia ARDS and pneumothorax her inability to tolerate exertion is to be expected and the fact that it does not take a prolonged time for her to recover leads me to believe she will do well at home with symptomatic care such as breathing treatments and steroids. Therefore at this time I do not feel she warrants admission as she is not hypoxic at rest and does recover quickly after resting from ambulation. This plan of care was discussed with the patient and her and they are both agreeable to it. Therefore the patient be discharged home with symptomatic care and will return if symptoms worsen or fail to improve despite treatment History & Record Review Discussion w/independent historian: Patient and Significant other Radiography Diagnostic Testing: Clinical Impression(s) from Imaging Studies Chest X-Ray 12/31/23 23:45 IMPRESSION: No radiographic evidence of acute cardiopulmonary disease. Electronically Signed: Macario Huerta MD at 1:03 [facility] , Chest x-ray as interpreted by the emergency medicine physician reveals chronic changes to the right lower lobe without acute infiltrate pneumothorax or pleural effusion Discharge Plan Triage Chief Complaint: Shortness of Breath ED Provider: Macario Sage Dx/Rx/DC Orders Clinical Impression: Acute upper respiratory infection, Post-COVID chronic cough, Dyspnea on exertion Instructions: ED Upper Resp Infec Abx Tx Prescriptions: New benzonatate 200 mg capsule 200 mg PO TID PRN (Reason: cough) Qty: 30 0RF prednisone 20 mg tablet 40 mg PO DAILY 5 Days Qty: 10 0RF azithromycin [Zithromax Z-Major] 250 mg tablet See Rx Instructions .ROUTE .COMPLEX Qty: 6 0RF Rx Instructions: For 250 mg dose pack: take 500 mg today (day 1), then 250 mg for 4 days (days 2-5) albuterol sulfate 0.63 mg/3 mL solution for nebulization 0.63 mg inhalation Q4H PRN (Reason: shortness of breath or wheezing) Qty: 90 2RF No Action cholecalciferol (vitamin D3) 25 mcg (1,000 unit) capsule 25 mcg PO DAILY budesonide-formoterol [Symbicort] 160-4.5 mcg/actuation HFA aerosol inhaler 2 puff inhalation BID Qty: 10.2 11RF albuterol sulfate 90 mcg/actuation HFA aerosol inhaler 2 puff inhalation Q4H PRN (Reason: shortness of breath or wheezing) Qty: 8.5 6RF Rx Instructions: administer with spacer prenat.vits,jorge alberto,[id number] Tablet 1 tab PO DAILY ondansetron 4 mg tablet,disintegrating 4 mg PO Q8H PRN PRN (Reason: Nausea) Qty: 10 0RF venlafaxine 150 mg capsule,extended release 24hr See Rx Instructions .ROUTE .COMPLEX Qty: 90 0RF Dose Instruction: take 1 capsule by mouth once daily Rx Instructions: take 1 capsule by mouth once daily venlafaxine 75 mg capsule,extended release 24hr See Rx Instructions .ROUTE .COMPLEX Qty: 90 0RF Dose Instruction: take 1 capsule by mouth at bedtime for depression TAKE WITH 150 MG CAPSULE Rx Instructions: take 1 capsule by mouth at bedtime for depression TAKE WITH 150 MG CAPSULE Primary Care Provider: Darrell Mendoza Referrals: Darrell Mendoza MD [Primary Care Provider] - Disposition Disposition: Home, Self Care Discharge Date/Time: 01/01/24 01:55
[2024-01-01 01:41] VITALS: BP 122/60; PULSE 103; RESP 21; TEMP 36.9; O2SAT 90
--- NOTE | 2024-01-01 01:53 | ED.RN ---
This RN ambulated the patient with a pulse ox. SPO2 droped to 86% but recovered quickly (<1 min). RN notified Dr Sage.
== END 2024-01-01 01:55 | disposition home or self-care (01) ==
PROVIDERS: Emergency Provider Emergency Medicine; PCP Internal Medicine; Visit Provider Emergency Medicine
DX: J06.9 Acute upper respiratory infection, unspecified (principal); R05.3 Chronic cough; R06.09 Other forms of dyspnea; U09.9 Post COVID-19 condition, unspecified; E66.9 Obesity, unspecified; Z86.718 Personal history of other venous thrombosis and embolism; Z99.81 Dependence on supplemental oxygen
CPT/HCPCS: 71046; 87631; 94640; 99282

== ENCOUNTER → 2024-01-05 | Outpatient (CLI) | payer BC, SELFPAY | END | disposition home or self-care (01) | LOC: BIMLAB 13:54 | PROVIDERS: PCP Internal Medicine; Visit Provider Internal Medicine | DX: Z11.1 Encounter for screening for respiratory tuberculosis (principal) | CPT/HCPCS: 36415; 86480 ==

== ENCOUNTER → 2024-01-09 | Outpatient (CLI) | payer BC, SELFPAY ==
[2024-01-11 15:08] LABS: QNTFERON TB Mitogen Value > 10.00 IU/mL (.); QNTFERON TB Nil Value 0.02 IU/mL (.); QNTFERON TB1+ Ag Value 0.01 IU/mL (.); QNTFERON TB2+ Ag Value 0.03 IU/mL (.); QNTIFERON TB Positive Criteria Negative (Negative)
== END | disposition home or self-care (01) ==
LOC: BIMLAB 15:48
PROVIDERS: PCP Internal Medicine; Visit Provider Internal Medicine
DX: Z02.0 Encounter for examination for admission to educational institution (principal)
CPT/HCPCS: 86480

== ENCOUNTER 2024-01-29 18:18 | Emergency (ER) | payer BC, SELFPAY ==
[2024-01-29 18:19] VITALS: BP 168/98; PULSE 98; RESP 22; TEMP 35.7; O2SAT 98
[2024-01-29 18:30] VITALS: O2SAT 95
--- NOTE | 2024-01-29 18:59 | EDS_ITS ---
HPI HPI - URI History of Present Illness Chief Complaint: Cough Informant: patient Narrative Narrative: Occasionally productive cough mostly nonproductive for the past 2 weeks. Does not seem like is getting better. Hoarse. Nasal congestion or rhinorrhea. No real fevers. She had a cold prior to this that seem to be getting better before this started. She went to urgent care and states she was prescribed an antibiotic that she has not started yet, but she was checking her pulse ox at home and it seemed to be low at times. She is having bronchospasm episodes that sometimes resolved and near syncope lightheadedness. She denies dyspnea when she is not coughing. She has occasional wheezing, she states she used to have asthma as a child. ROS ROS ED Constitutional Constitutional ED: Denies chills or fever(s) Eyes Eyes: Denies change in vision ENT ENT ED: Reports hoarseness, nasal congestion, rhinorrhea and sore throat; Denies ear pain Cardiovascular Cardiovascular: Denies chest pain or palpitations Respiratory/Chest Respiratory/Chest: Reports cough; Denies dyspnea Gastrointestinal Gastrointestinal: Denies abdominal pain, diarrhea, nausea or vomiting Genitourinary Genitourinary ED: Denies dysuria or hematuria Musculoskeletal Musculoskeletal: Denies myalgias or neck pain Integumentary Denies abscess or rash Neurologic Neurologic: Denies headache(s), paresthesias or weakness Psychiatric Psychiatric: Denies depression or suicidal thoughts Endocrine Endocrinology: Denies polydipsia or polyuria [facility] Medical History 16 weeks gestation of Acute respiratory failure due to COVID-19 Alcohol use Anemia Anemia Anxiety Back pain C. 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 Screening-pulmonary TB Sore throat Sprain and strain of temporomandibular joint Tonsillar enlargement URI (upper respiratory infection) Ventilator associated pneumonia Home Medications albuterol sulfate 90 mcg/actuation aerosol inhaler 2 puff inhalation Q4H PRN shortness of breath or wheezing #8.5 grams 03/07/23 [Rx Last Taken Unknown] budesonide-formoterol HFA 160 mcg-4.5 mcg/actuation aerosol inhaler (Symbicort) 2 puff inhalation BID #10.2 grams 03/07/23 [Rx Last Taken Unknown] cholecalciferol (vitamin D3) 25 mcg (1,000 unit) capsule 25 mcg PO DAILY 03/07/23 [History Last Taken Unknown] ondansetron 4 mg disintegrating tablet 4 mg PO Q8H PRN PRN Nausea #10 tabs 04/23/23 [Rx Last Taken Unknown] albuterol sulfate 0.63 mg/3 mL solution for nebulization 0.63 mg (3 mL) inhalation Q4H PRN shortness of breath or wheezing #90 mL 01/01/24 [Rx Last Taken Unknown] benzonatate 200 mg capsule 200 mg PO TID PRN cough #30 caps 01/01/24 [Rx Last Taken Unknown] venlafaxine 150 mg capsule,extended release 24 hr 150 mg PO DAILY #90 caps 01/09/24 [Rx Last Taken Unknown] venlafaxine 75 mg capsule,extended release 24 hr 75 mg PO QHS #90 caps 01/09/24 [Rx Last Taken Unknown] Allergy/AdvReac Type Severity Reaction Status Date / Time No Known Allergies Allergy Verified 01/29/24 18:23 Family History Mother Diabetes Grandmother Hypertension Leukemia Surgical History History of placement of chest tube History of tracheostomy Social History adopted: No household members: significant other housing: house number of children: 0 current occupational status: unemployed history of recent travel: No Smoking Status: Never smoker alcohol intake: former details: rare ETOH prior to COVID infection in July 2021. None currently substance use type: does not use EXAM Physical Exam Const Vital Signs: 01/29/24 18:19 01/29/24 18:18 Temperature 96.3 F L Temperature Source Temporal Pulse Rate 98 Respiratory Rate 22 H Respiratory Effort Normal Respiratory Depth Normal Respiratory Pattern Normal Blood Pressure 168/98 H Blood Pressure Mean 121 Pulse Ox 98 Oxygen Delivery Method Room Air Room Air Positive well nourished, well developed and obese General Appearance ED: well developed and NAD Nutritional Appearance: obese HEENT Reports moist mucous membranes HEENT Narrative: Hoarseness without stridor normocephalic and atraumatic Throat: Negative for posterior oropharynx abnormal Eyes PERRL and EOMs intact bilaterally Neck no lymphadenopathy, supple and no meningeal signs Resp normal respiratory effort and clear to auscultation bilaterally Cardio no murmurs Rate: regular rate Rhythm: regular rhythm Neuro oriented x3, CN's II-XII intact bilaterally and no sensory deficits noted Sensorium / Orientation: alert Motor Exam: strength 5/5 throughout Psych Mood & Affect: anxious Skin Lesions: no lesions Rashes: no rashes MDM MDM MDM Narrative Medical decision making narrative: Oxygenation is excellent here, even with ambulation she is 95%. Her lungs are clear to auscultation, the other vital signs are unremarkable, and I think she is having vagal phenomenon from bronchospasm. I think this is probably all viral, if she wants to do the antibiotic to cover atypicals I think that is reasonable, but I suspect viral etiology. I will add a dose of Decadron to her regimen and supportive care also advised along with [id number] cold and flu medications. Discharge Plan Triage Chief Complaint: Cough ED Provider: [place] Dx/Rx/DC Orders Clinical Impression: Acute bronchitis with bronchospasm Instructions: Acute Bronchitis Prescriptions: No Action cholecalciferol (vitamin D3) 25 mcg (1,000 unit) capsule 25 mcg PO DAILY budesonide-formoterol [Symbicort] 160-4.5 mcg/actuation HFA aerosol inhaler 2 puff inhalation BID Qty: 10.2 11RF albuterol sulfate 90 mcg/actuation HFA aerosol inhaler 2 puff inhalation Q4H PRN (Reason: shortness of breath or wheezing) Qty: 8.5 6RF Rx Instructions: administer with spacer ondansetron 4 mg tablet,disintegrating 4 mg PO Q8H PRN PRN (Reason: Nausea) Qty: 10 0RF benzonatate 200 mg capsule 200 mg PO TID PRN (Reason: cough) Qty: 30 0RF albuterol sulfate 0.63 mg/3 mL solution for nebulization 0.63 mg inhalation Q4H PRN (Reason: shortness of breath or wheezing) Qty: 90 2RF venlafaxine 150 mg capsule,extended release 24hr 150 mg PO DAILY Qty: 90 0RF venlafaxine 75 mg capsule,extended release 24hr 75 mg PO QHS Qty: 90 0RF Rx Instructions: Take with 150 for a total daily dose of 225 mg Primary Care Provider: Darrell Mendoza Referrals: Darrell Mendoza MD [Primary Care Provider] - 1 Week if not improving Disposition Disposition: Home, Self Care
[2024-01-29] MEDS: dexAMETHasone 4 MG Tablet 12 MG PO (19:03)
[2024-01-29 19:04] VITALS: BP 168/98; PULSE 98; RESP 22; TEMP 35.7; O2SAT 98
== END 2024-01-29 19:12 | disposition home or self-care (01) ==
PROVIDERS: Emergency Provider Emergency Medicine; PCP Internal Medicine; Visit Provider Emergency Medicine
DX: J20.9 Acute bronchitis, unspecified (principal); F32.A Depression, unspecified; F41.9 Anxiety disorder, unspecified; Z79.899 Other long term (current) drug therapy
CPT/HCPCS: 99282

== ENCOUNTER → 2024-05-23 | Outpatient (CLI) | payer MEDICAID, SELFPAY ==
[2024-05-23 16:39] LABS: Absolute Lymphocyte Count 2.63 X10^3/uL (0.83-4.51); Absolute Neutrophil Count 4.3 X10^3/uL (2.0-7.7); Basophil# 0.05 X10^3/uL; Basophil% 0.6 % (0-1); Eosinophil# 0.27 X10^3/uL; Eosinophils% 3.5 % (0-5); Hematocrit 45.2 % (37-47); Hemoglobin 14.7 g/dL (12.0-15.0); Lymphocyte # 2.63 X10^3/ul (0.83-4.51); Lymphocyte % 33.8 % (19-41); Mean Corp Hgb Conc 32.5 g/dL (32-36); Mean Corpuscular Hgb 27.5 pg (27.0-32.0); Mean Corpuscular Volume 84.6 fL (81-99); Mean Platelet Vol. 11.8 fl (6.2-12.0); Monocyte# 0.51 X10^3/uL; Monocyte% 6.6 % (0-10); NRBC Flagged by Analyzer 0 % (0-5); Neutrophil % 55.4 % (47-70); Platelet Count 228 K/mm3 (150-450); RBC Distribution Width CV 12.7 % (11.6-14.6); RBC Distribution Width SD 38.8 fl (35.1-43.9); Red Blood Count 5.34 M/mm3 (4.2-5.4); White Blood Count 7.8 K/mm3 (4.4-11.0)
[2024-05-23 17:10] LABS: AST(SGOT) 26 U/L (15-37); Alanine Aminotransfer ALT/SGPT 38 U/L (13-56); Albumin, Serum 3.6 g/dL (3.2-5.0); Alkaline Phosphatase 49 U/L (45-117); Anion Gap 5 (5-15); BUN 15 mg/dL (7-18); BUN/Creat Ratio 17.5 RATIO (10-20); Calcium,Total 9.2 mg/dL (8.5-10.1); Chloride 110 mmol/L (98-107); Cholesterol 119 mg/dL (200); Creatinine, Serum 0.86 mg/dL (0.55-1.02); EST Glomerular Filtration Rate 86 mL/min (>60); Est Glom Filt Rate - Afr Amer 104 mL/min (>60); Globulin 3.6 g/dL (2.2-4.2); Glucose 86 mg/dL (74-106); High Density Lipoprotein 42 mg/dL; Potassium 4.3 mmol/L (3.5-5.1); Protein, Total 7.2 g/dL (6.4-8.2); Sodium Level 141 mmol/L (136-145); Thyroid Stim Hormone (TSH) 0.74 uIU/mL (0.358-3.74); Triglycerides 39 mg/dL; Very Low Density Lipoprotein 8 mg/dL (5-40)
== END | disposition home or self-care (01) ==
LOC: BIMLAB 16:01
PROVIDERS: PCP Internal Medicine; Referring Provider Internal Medicine; Visit Provider Internal Medicine
DX: Z00.00 Encounter for general adult medical examination without abnormal findings (principal); Z13.29 Encounter for screening for other suspected endocrine disorder
CPT/HCPCS: 36415; 80053; 80061; 84439; 84443; 85025

== ENCOUNTER → 2024-05-28 | Outpatient (CLI) | payer MEDICAID, SELFPAY ==
[2024-05-28 15:55] LABS: Bilirubin, Direct 0.37 mg/dL (0.00-0.30)
== END | disposition home or self-care (01) ==
LOC: BIMLAB 13:18
PROVIDERS: PCP Internal Medicine; Referring Provider Internal Medicine; Visit Provider Internal Medicine
DX: R17 Unspecified jaundice (principal)
CPT/HCPCS: 36415; 82247; 82248

== ENCOUNTER → 2024-11-15 | Outpatient (CLI) | payer MEDICAID, SELFPAY ==
[2024-11-15 17:16] LABS: ALB/GLOB Ratio 1.1 RATIO (0.9-2.4); AST(SGOT) 7 U/L (15-37); Alanine Aminotransfer ALT/SGPT 26 U/L (13-56); Albumin, Serum 3.9 g/dL (3.2-5.0); Alkaline Phosphatase 50 U/L (45-117); Anion Gap 5 (5-15); BUN 11 mg/dL (7-18); BUN/Creat Ratio 12.1 RATIO (10-20); Calcium,Total 9.5 mg/dL (8.5-10.1); Chloride 107 mmol/L (98-107); Creatinine, Serum 0.91 mg/dL (0.55-1.02); EST Glomerular Filtration Rate 79 mL/min (>60); Est Glom Filt Rate - Afr Amer 96 mL/min (>60); Globulin 3.6 g/dL (2.2-4.2); Glucose 81 mg/dL (74-106); Protein, Total 7.5 g/dL (6.4-8.2); Sodium Level 142 mmol/L (136-145)
== END | disposition home or self-care (01) ==
LOC: BIMLAB 14:33
PROVIDERS: PCP Internal Medicine; Referring Provider Internal Medicine; Visit Provider Internal Medicine
DX: R17 Unspecified jaundice (principal)
CPT/HCPCS: 36415; 80053

== ENCOUNTER → 2025-05-16 | Outpatient (CLI) | payer MEDICAID, SELFPAY ==
[2025-05-16 18:14] LABS: Hematocrit 39.6 % (37-47); Hemoglobin 13.3 g/dL (12.0-15.0); Immature Granulocytes Count 0.020 X10^3/uL (0.0-0.0); Mean Corp Hgb Conc 33.6 g/dL (32-36); Mean Corpuscular Volume 83.7 fL (81-99); Mean Platelet Vol. 11.6 fl (6.2-12.0); NRBC Flagged by Analyzer 0 % (0-5); Platelet Count 257 K/mm3 (150-450); RBC Distribution Width CV 12.6 % (11.6-14.6); RBC Distribution Width SD 38.6 fl (35.1-43.9); Red Blood Count 4.73 M/mm3 (4.2-5.4); White Blood Count 7.8 K/mm3 (4.4-11.0)
[2025-05-16 19:07] LABS: AST(SGOT) 27 U/L (<=31); Alanine Aminotransfer ALT/SGPT 25 U/L (<=34); Albumin, Serum 4.3 g/dL (3.5-5.0); Alkaline Phosphatase 43 U/L (35-104); Anion Gap 13 (5-15); BUN 11 mg/dL (4-19); BUN/Creat Ratio 12.2 RATIO (10-20); Calcium,Total 9.4 mg/dL (7.6-11.0); Carbon Dioxide 22.4 mmol/L (21.0-32.0); Chloride 108 mmol/L (98-108); Cholesterol 148 mg/dL (<=200); Globulin 2.8 g/dL (2.2-4.2); Glucose 91 mg/dL (70-99); Low Density Lipoprotein Calc. 84 mg/dL; Potassium 3.7 mmol/L (3.3-5.1); Triglycerides 113 mg/dL; Very Low Density Lipoprotein 23 mg/dL (5-40); Vitamin D,25 Hydroxy 31.1 ng/mL (30-100); cholesterol:hdl ratio screen 3.58
== END | disposition home or self-care (01) ==
LOC: MTLAB 14:38
PROVIDERS: PCP Internal Medicine; Referring Provider Internal Medicine; Visit Provider Internal Medicine
DX: Z00.00 Encounter for general adult medical examination without abnormal findings (principal); F41.8 Other specified anxiety disorders
CPT/HCPCS: 36415; 80053; 80061; 82306; 85025

== ENCOUNTER 2025-06-22 11:27 | Emergency (ER) | payer MEDICAID, SELFPAY ==
[2025-06-22 11:28] VITALS: BP 142/93; PULSE 113; RESP 20; TEMP 37.4; O2SAT 94; BMI 42.4
--- NOTE | 2025-06-22 11:42 | EKG12_ITS ---
Test Reason : Blood Pressure : */* mmHG Vent. Rate : 95 BPM Atrial Rate : 95 BPM P-R Int : 170 ms QRS Dur : 96 ms QT Int : 324 ms P-R-T Axes : 20 37 26 degrees QTcB Int : 407 ms Normal sinus rhythm Normal ECG Confirmed by VIANEY DILL, MATT ([id number]), editor greeting card JOSE CRUZ CHAIDEZ ([id number]) on 06/24/2025 1:03:24 PM Referred By: Confirmed By: MATT WINTERS MD
--- NOTE | 2025-06-22 11:44 | EDS_ITS ---
HPI History of Present Illness Chief Complaint: Abd Pain Narrative Narrative: 25-year-old female past medical history of childhood asthma, has a rescue inhaler but has not had to use it presents with multiple somatic complaints. She states that ever since COVID, she has had problems with shortness of breath. Today, she noticed that on exertion she had increasing shortness of breath, and that her heart rate would increase and her oxygen level will drop into the 80s. She has had an occasional cough, but calls that her COVID cough. She has had longstanding problems with probable long COVID over the past few years. She was concerned because she had left-sided abdominal pain and was not sure if this was causing pressure causing her heart rate to increase into the 120s or higher and her oxygen level to drop into the 80s. [facility] Medical History Morbid obesity Blurry vision Elevated bilirubin Preventative health care Screening for thyroid disorder School physical exam Screening-pulmonary TB Hypokalemia URI (upper respiratory infection) Post depression Fatigue Hx of Clostridium difficile infection Depression Anxiety Alcohol use Anemia DVT (deep venous thrombosis) Restless leg Back pain Ventilator associated pneumonia Heartburn during Nonsmoker On home oxygen therapy Edema COVID Cough Sore throat Tonsillar enlargement 16 weeks gestation of Dermatitis Sprain and strain of temporomandibular joint Acute respiratory failure due to COVID-19 History of pneumothorax Recurrent pneumothorax after chest tube removed History of COVID-19 Hx of recurrent urinary tract infection Cranial neuropathy Ophthalmoplegia of right eye Exotropia History of malnutrition C. difficile enteritis Obesity Anemia DVT (deep venous thrombosis) Home Medications ?Medication ?Instructions ?Recorded ?Last Taken ?Type albuterol sulfate 90 mcg/actuation 2 puff inhalation Q 4H PRN 03/07/23 Unknown Rx aerosol inhaler shortness of breath or wheez ing #8.5 grams budesonide-formoterol HFA 160 2 puff inhalation BID #1 0.2 grams 03/07/23 Unknown Rx mcg-4.5 mcg/actuation aerosol inhaler (Symbicort) cholecalciferol (vitamin D3) 25 25 mcg PO DAILY Unknown History mcg (1,000 unit) capsule ondansetron 4 mg disintegrating 4 mg PO Q8H PRN PRN Na usea #10 tabs 04/23/23 Unknown Rx tablet albuterol sulfate 0.63 mg/3 mL 0.63 mg (3 mL) inhalati on Q4H PRN 01/01/24 Unknown Rx solution for nebulization shortness of breath or wheez ing #90 mL Allergy/AdvReac Type Severity Reaction Status Date / Time No Known Allergies Allergy Verified 05/16/25 13:50 Family History Mother Diabetes Grandmother Hypertension Leukemia Surgical History History of placement of chest tube History of tracheostomy Social History adopted: No household members: significant other housing: house number of children: 0 current occupational status: unemployed history of recent travel: No Smoking Status: Never smoker alcohol intake: former details: rare ETOH prior to COVID infection in July 2021. None currently substance use type: does not use ROS ROS ED ROS Narrative Review of systems positive for elevated heart rate, shortness of breath, reported low pulse ox. Chronic cough. No recent fevers or chills, no nausea or vomiting. Symptoms worse with exertion. EXAM Physical Exam Narrative Exam Narrative: Afebrile. Vital signs noted. Nontoxic-appearing. Cardiovascular examination reveals mild tachycardia that is regular. Lungs are clear to auscultation bilaterally, speaking in full sentences, moving a good amount of air. No overt wheezing or stridor. Abdomen soft, nontender without guarding or rebound. Positive bowel sounds. Neurological examination nonfocal, nonlateralizing. No pedal edema appreciated. Const Vital Signs: 06/22/25 11:28 06/22/25 11:54 06/22/25 11:56 Temperature 99.4 F H 97.8 F Temperature Source Oral Oral Pulse Rate 113 H 106 H Pulse Rate [Lying] Pulse Rate [Sitting (for 1 minute prior to obtaining)] Pulse Rate [Standing (for 1 minute prior to obtaining)] Respiratory Rate 20 H 18 Respiratory Effort Normal Respiratory Depth Normal Respiratory Pattern Normal Blood Pressure 142/93 H 142/76 H Blood Pressure [Lying] Blood Pressure [Sitting (for 1 minute prior to obtaining)] Blood Pressure [Standing (for 1 minute prior to obtaining)] Blood Pressure Mean 109 98 Blood Pressure Mean [Lying] Blood Pressure Mean [Sitting (for 1 minute prior to obtaining)] Blood Pressure Mean [Standing (for 1 minute prior to obtaining)] Pulse Ox 94 94 Oxygen Delivery Method Room Air Room Air Room Air 06/22/25 12:53 Temperature Temperature Source Pulse Rate Pulse Rate [Lying] 97 Pulse Rate [Sitting (for 1 minute prior to obtaining)] 95 Pulse Rate [Standing (for 1 minute prior to obtaining)] 97 Respiratory Rate Respiratory Effort Respiratory Depth Respiratory Pattern Blood Pressure Blood Pressure [Lying] 130/76 H Blood Pressure [Sitting (for 1 minute prior to obtaining)] 137/96 H Blood Pressure [Standing (for 1 minute prior to obtaining)] 138/77 H Blood Pressure Mean Blood Pressure Mean [Lying] 94 Blood Pressure Mean [Sitting (for 1 minute prior to obtaining)] 109 Blood Pressure Mean [Standing (for 1 minute prior to obtaining)] 97 Pulse Ox Oxygen Delivery Method MDM MDM MDM Narrative Medical decision making narrative: Differential diagnosis includes but not limited to COVID versus POTS versus dehydration versus other electrolyte abnormality versus anxiety versus pulmonary embolism versus pneumonia. Comprehensive workup was pursued. I reviewed her prior problem list and she does have reactive airway disease and she has had bronchitis with wheezing in the past. She has listed also pulmonary fibrosis postinflammatory. She will be bolused normal saline. EKG was obtained and interpreted by myself independently as normal sinus rhythm at 95 bpm without ectopy or acute ST changes. No STEMI. I reviewed her laboratory work and she has normal white count of 5.3 with hemoglobin 14.5, hematocrit 42.6, platelet count normal at 161. BMP shows glucose elevated at 113 with normal anion gap of 13. Normal sodium and normal potassium. Serum test is negative. Urinalysis negative for infection with 0 WBCs. I do not feel antibiotics are indicated. D-dimer is elevated at 1.0, but in review of prior labs she has chronically elevated D-dimer at 0.5. I discussed these findings with the patient. CTA was obtained to rule out pulmonary embolism. While she has no evidence of pulmonary embolism on the radiology report of the CTA, she does have possible pneumonitis. I do feel this is probably more chronic. I do not feel steroids are indicated but I think she can use her albuterol inhaler as needed. Pulse ox remains adequate on room air. Upon repeat examination she is resting comfortably without tachypnea. Orthostatics are negative as well. She was told that she can be discharged to follow-up with her primary care provider for possible cardiology consultation as well. She may need to wear a Holter monitor as well given her reported intermittent tachycardia. She is motivated for discharge and is comfortable with the plan. Return instructions to the emergency department were reviewed. Disposition is discharged home in stable condition. History & Record Review Discussion w/independent historian: Patient Additional record(s) reviewed:: Prior labs (Chronically elevated D-dimer) Lab Data Attestation: I reviewed the patient's lab results. Labs: Laboratory Results - last 24 hr 06/22/25 06/22/25 11:50 12:55 WBC 5.3 RBC 5.15 Hgb 14.5 Hct 42.6 MCV 82.7 MCH 28.2 MCHC 34.0 RDW Std Deviation 38.1 RDW Coeff of [place] 12.6 Plt Count 161 MPV 10.6 Immature Gran % (Auto) 0.600 Neut % (Auto) 35.8 L Lymph % (Auto) 53.8 H [place] % (Auto) 4.9 Eos % (Auto) 3.6 Baso % (Auto) 1.3 H Absolute Neuts (auto) 1.9 L Absolute Lymphs (auto) 2.85 Nucleated RBC % 0 Reactive Lymphocytes RARE D-Dimer Quant (PE/DVT) 1.00 H* Sodium 138 Potassium 3.8 Chloride 104 Carbon Dioxide 21.4 Anion Gap 13 BUN 13 Creatinine 0.94 Estim Creat Clear Calc 139.84 Est GFR (MDRD) Non-Af 85 BUN/Creatinine Ratio 14.2 Glucose 113 H Calcium 9.3 Serum , Qual NEGATIVE Urine Color Yellow Urine Clarity Clear Urine pH 5.0 Ur Specific [place] 1.015 Urine Protein 15 H Urine Glucose (UA) Normal Urine Ketones Negative Urine Occult Blood 250 H Urine Nitrite Negative Urine Bilirubin Negative Urine Urobilinogen 4 H Ur Leukocyte Esterase 25 H Urine RBC 0 SEEN Urine WBC 0 SEEN Ur Squamous Epith Cells 5-10 SEEN Urine Bacteria 0 SEEN Urine Mucus 0 SEEN Radiography Diagnostic Testing: Clinical Impression(s) from Imaging Studies Chest X-Ray 06/22/25 11:55 IMPRESSION: Interstitial densities in the lower lungs may represent atelectasis. Pulmonary infiltrates like pulmonary edema or pneumonia can not be excluded. Reading Location: [facility] Chest CTA 06/22/25 12:16 IMPRESSION: No evidence of pulmonary embolism. Diffuse streaky and ground-glass densities in the lungs may represent pneumonia or pneumonitis. Reading Location: [facility] Discharge Plan Triage Chief Complaint: Abd Pain Other Complaint: Shortness of Breath ED Provider: Massimo Mcneil Dx/Rx/DC Orders Clinical Impression: Shortness of breath, Tachycardia, Elevated d-dimer Instructions: ED About Arrhythmias, ED Dyspnea Prescriptions: No Action cholecalciferol (vitamin D3) 25 mcg (1,000 unit) capsule 25 mcg PO DAILY budesonide-formoterol [Symbicort] 160-4.5 mcg/actuation HFA aerosol inhaler 2 puff inhalation BID Qty: 10.2 11RF albuterol sulfate 90 mcg/actuation HFA aerosol inhaler 2 puff inhalation Q4H PRN (Reason: shortness of breath or wheezing) Qty: 8.5 6RF Rx Instructions: administer with spacer ondansetron 4 mg tablet,disintegrating 4 mg PO Q8H PRN PRN (Reason: Nausea) Qty: 10 0RF albuterol sulfate 0.63 mg/3 mL solution for nebulization 0.63 mg inhalation Q4H PRN (Reason: shortness of breath or wheezing) Qty: 90 2RF Primary Care Provider: Darrell Mendoza Referrals: Darrell Mendoza MD [Primary Care Provider] - 3-5 Days if not improving Activity Restrictions/Additional Instructions: Return to the emergency department with consistently elevated heart rate, consistently low pulse ox, new or worsening symptoms. Follow-up with your primary care provider. Use your inhaler for shortness of breath as needed. Print Language: Bulgarian Disposition Disposition: Home, Self Care
[2025-06-22 11:54] VITALS: BP 142/76; PULSE 106; RESP 18; TEMP 36.6; O2SAT 94
--- NOTE | 2025-06-22 11:55 | RAD_ITS ---
PROCEDURE: CHEST 1 VIEW (PORTABLE) 06/22/2025 REASON FOR EXAM: SHORTNESS OF BREATH TECHNIQUE: Frontal view of the chest. COMPARISON: Chest x-ray 01/20/2024 FINDINGS: Hardware: Monitor electrodes overlie the chest. Heart: No cardiomegaly. Lungs: Interstitial densities in the lower lungs may represent atelectasis. Bones: No acute bony abnormalities. RAD/Chest 1 View (Portable) IMPRESSION: Interstitial densities in the lower lungs may represent atelectasis. Pulmonary infiltrates like pulmonary edema or pneumonia can not be excluded. Reading Location: [id number]
[2025-06-22 12:01] LABS: Hematocrit 42.6 % (37-47); Hemoglobin 14.5 g/dL (12.0-15.0); Immature Granulocytes Count 0.030 X10^3/uL (0.0-0.0); Mean Corp Hgb Conc 34.0 g/dL (32-36); Mean Corpuscular Volume 82.7 fL (81-99); Mean Platelet Vol. 10.6 fl (6.2-12.0); NRBC Flagged by Analyzer 0 % (0-5); POSITIVE MORPHOLOGY YES; Platelet Count 161 K/mm3 (150-450); RBC Distribution Width CV 12.6 % (11.6-14.6); RBC Distribution Width SD 38.1 fl (35.1-43.9); Red Blood Count 5.15 M/mm3 (4.2-5.4); White Blood Count 5.3 K/mm3 (4.4-11.0)
[2025-06-22 12:02] LABS: Differential Indicated SCAN CRITERIA MET
--- OUTSIDE RECORDS SUMMARY | 2025-06-22 12:08 | XMS RPT_ITS | CCD ---
Author Organization [facility] Care Team Providers Care Missile Facilities Repairer Name Role Phone SHERRY SELLERS Referring Unavaila ble NO, PHYSICIAN Primary Care Unavailable [facility] Consulting Unavai mallory GARCIAUSAMANDA, LEATHA WOOEZJEROME Admitting Unavail able FADIA APODACA Attending Unavailable GRETA MCWILLIAMS Consulting Unavaila ble Osbaldo, Dr. Randa Wheeler Admit Provider Osbaldo, Dr. Randa Wheeler Attending Provider Osbaldo, Dr. Randa Wheeler Other Provider Dr. Ric Lee Attending Provider Dr. Ric Lee Referring Provider Dr. Matt Mendoza Primary Care Provider Dr. Matt Mendoza Attending Provider Dr. Matt Mendoza Referring Provider Dr. Ric Lee Other Provider Dr. Ariel Harman Attending Provider Unavailable Primary Care Provider Unavailabl e ERNESTO BLAIR Attending Unavailable ERNESTO BLAIR Referring Unavailable [facility] Admitting Unava ilable [facility] Attending Unava ilable BRITTANEY ALVARADO Attending Unavailable CHARLES PIERRE Admitting Unavailable PHILIP FLORES JR. Referring Unavail able CONSULT, IP CONSULT TO INTER VENTIONAL PULMONOLOGY Consulting Unavailable SHAREE BOX Admitting Unavailable SELF, SELF Referring Unavailable CONSULT, ECMO (CARDIAC SURGERY) Consulting Unavailable VIPUL NOLAND Attending Unavailable Dr. Matt Mendoza Primary Care Provider Dr. Matt Mendoza Attending Provider [phone] Dr. Matt Mendoza Referring Provider [phone] Dr. Ric Lee Attending Provider Js ACCOUNTS EXECUTIVE, ACCOUNTS EXECUTIVE-C Santa Attending Provider BREE Andrade Attending Provider UnavailDr. Matt Sandoval Primary Care Provider [phone] Dr. Matt Mendoza Referring Provider [phone] Unavailable Primary Care Provider Dr. Matt Ramirez Attending Provider [phone] Unavailable Primary Care Provider UnavailDr. Matt Olivera Primary Care Provider [phone] [phone]) Dr. Matt Mendoza Referring Provider [phone] BREE Andrade Attending Provider UnavailDr. Matt Sandoval Attending Provider [phone] Js ACCOUNTS EXECUTIVE, ACCOUNTS EXECUTIVE-C Santa Attending Provider Js ACCOUNTS EXECUTIVE, ACCOUNTS EXECUTIVE-C Santa Referring Provider Matt Mendoza MD Primary Care Provider [phone] INDIRA AREVALO Admitting Unavailable GANGA RANDHAWA Attending Unavaila Dr. Matt Reddy Primary Care Provider [phone] 0) Dr. Matt Mendoza Referring Provider [phone] Omer ACCOUNTS EXECUTIVE, ACCOUNTS EXECUTIVE-C Chrsitie Attending Provider Dr. Ric Lee Attending Provider [phone] Dr. Ric Lee Referring Provider Dr. Ric Lee Other Provider Dr. Ariel Harman Attending Provider Dr. Matt Mendoza Primary Care Provider [phone] 0) Dr. Matt Mendoza Referring Provider [phone] Naomi ACCOUNTS EXECUTIVE, ACCOUNTS EXECUTIVE-C Kamini Attending Provider [phone] Dr. Matt Mendoza Primary Care Provider [phone] [phone]) Js ACCOUNTS EXECUTIVE, ACCOUNTS EXECUTIVE-C Santa Attending Provider Dr. Matt Mendoza Primary Care Provider [phone] 0) Dr. Matt Mendoza Referring Provider [phone] Naomi ACCOUNTS EXECUTIVE, ACCOUNTS EXECUTIVE-C Kamini Attending Provider [phone] Js ACCOUNTS EXECUTIVE, ACCOUNTS EXECUTIVE-C Santa Attending Provider Dr. Ric Lee Attending Provider Dr. Matt Mendoza Primary Care Provider [phone] 0) Dr. Matt Mendoza Referring Provider [phone] Naomi ACCOUNTS EXECUTIVE, ACCOUNTS EXECUTIVE-C Kamini Attending Provider [phone]) Dr. Matt Mendoza Primary Care Provider 1(33 0) Dr. Matt Mendoza Referring Provider [phone] Naomi ACCOUNTS EXECUTIVE, ACCOUNTS EXECUTIVE-C Kamini Attending Provider [phone]) Dr. Matt Mendoza Primary Care Provider 1(33 0) Dr. Matt Mendoza Attending Provider [phone] Dr. Matt Mendoza Referring Provider [phone] Dr. Matt Mendoza Primary Care Provider [phone] 0) Dr. Matt Mendoza Attending Provider [phone] Dr. Matt Mendoza Referring Provider [phone] Ric Lee Attending Provider Matt Mendoza MD Primary Care Provider [phone] MATT MENDOZA Primary Care Unavailable EDILMA SANDHU Referring Unavailable MATT MENDOZA Primary Care Unavailable EDILMA SANDHU Attending Unavailable OLEGHE, EFEWONGBE B Primary Care Unavailable OLEGHE, EFEWONGBE B Primary Care Unavailable ZACARIAS BRIGGS Attending Unavailable OLEGHE, EFEWONGBE B Primary Care Unavailable EDILMA SANDHU Referring Unavailable OLEGHE, EFEWONGBE B Primary Care Unavailable Franciscoe , Dr. Ramírez Primary Care Provider Reji DILL, Dr. Ramírez Attending Provider [phone] Reji DILL, Dr. Ramírez Referring Provider [phone] Oleghe, Efewongbe Attending Unavailable Oleghe, Efewongbe Referring Unavailable Oleghe, Efewongbe Primary Care Unavailable Oleghe, Efewongbe Primary Care Unavailable Oleghe, Efewongbe Attending Unavailable Oleghe, Efewongbe Referring Unavailable Oleghe, Efewongbe Primary Care Unavailable Oleghe, Efewongbe Attending Unavailable Oleghe, Efewongbe Referring Unavailable Oleghe, Efewongbe Attending Unavailable Oleghe, Efewongbe Referring Unavailable Oleghe, Efewongbe Primary Care Unavailable Oleghe, Efewongbe Primary Care Unavailable Oleghe, Efewongbe Attending Unavailable Oleghe, Efewongbe Referring Unavailable Oleghe, Efewongbe Attending Unavailable Oleghe, Efewongbe Referring Unavailable Oleghe, Efewongbe Primary Care Unavailable Allergies Allergy Classification Reported Allergen(s) Allergy Type Date of Onset Reaction(s) Facility Ethanol (2 sources) Ethanol Drug Allergy 03-11-2022 [facility] (20 sources) Ethanol; Translations: [ALCOHOL] Drug Allergy 03-11-2022 [facility] Work Phone: Medications Current Medications Medication Drug Class(es) Dates Sig (Normalized) Sig (Original) acetaminophen 325 mg oral tablet (5 sources) Start: 11-19-2021 take 2 tablets by mouth every six hours as needed Acetaminophen (Tylenol) 325 mg Tablet Active 650 MG PO EVERY 6 HOURS NEEDED November 19, 2021 1:00am albuterol 0.21 mg/ml inhalation solution (20 sources) beta2-Adrenergic Agonist Start: 01-01-2024 take 0.63 mg by inhalation every four hours as needed for wheezing Albuterol Sulfate 0.63 mg/3 mL solution for nebulization Active 0.63 mg INHALATION Q4H as needed for shortness of breath or wheezing 90 2 January 01, 2024 1:00am Start: 03-07-2023 Albuterol Sulf ate 90 mcg/actuation HFA aerosol inhaler Active 2 NMA INHALATION Q4H as needed for shortness of breath or wheezing 8.5 March 07, 2023 12:00am administer with spacer Start: 03-07-2023 take 1 puff(s) by in halation every four hours Albuterol Sulfate Active 2 PUFF INHALATION Q4H 8.March 07, 2023 12:00am administer with spacer Start: 11-19-2021 take 1 puff(s) by in halation every six hours Albuterol Sulfate Active 2 PUFF INHALATION EVERY 6 HOURS 8.November 19, 2021 1:28pm Start: 11-19-2021 take 1 puff(s) by in halation every six hours Albuterol Sulfate Active 2 PUFF INHALATION EVERY 6 HOURS 8.November 19, 2021 1:00am ALBUTEROL INHALA TION Inhale as instructed. Active ALBUTEROL INHALA TION Inhale as instructed. 0 Active Comment on above: Inhale as instructed . amoxicillin 875 mg / clavulanate 125 mg oral tablet (16 sources) Penicillin-class Antibacterial Start: End: take 1 tablet by mouth twice daily amoxicillin-clavul anate potassium (AUGMENTIN) 875-125 mg per tablet Take 1 tablet by mouth two times a day for 7 days. 14 tablet 03/11/2025 03/18/2025 Active Start: 09-03-2023 End: 09-13-2023 take 1 tablet by mouth twice daily amoxicillin-clavulanate potassium (AUGMENTIN) 875-125 mg per tablet Indications: Rhinosinusitis Take 1 tablet by mouth two times a day for 10 days. 20 tablet 0 09/03/2023 09/13/2023 Active Start: 09-25-2022 End: 11-02-2022 Amoxicillin-Pot Clavulanate 875-125 mg tablet Discontinued 1 {tbl} PO TWICE A DAY 14 7 0 September 25, 2022 1:00am November 02, 2022 11:14am Start: 09-25-2022 End: 11-02-2022 take 1 tablet by mouth twice daily Amoxicillin-Pot Clavulanate Discontinued 1 TABLET PO TWICE A DAY 14 7 September 25, 2022 1:00am November 02, 2022 11:14am Comment on above: Take 1 tablet by vivien th two times a day for 10 days. Arthritis Pain Compound (20 sources) Start: 11-19-2021 Arthritis Pain Compound Active 3 CLICK TOPICAL TWICE A DAY 0 November 19, 2021 11:35am Start: 11-19-2021 End: 05-07-2022 Arthritis Pain Compound Disc ontinued 3 NMA TOPICAL TWICE A DAY 0 November 19, 2021 1:00am May 07, 2022 10:07am Start: 11-19-2021 End: 05-07-2022 Arthritis Pain Compound Disc ontinued 3 CLICK TOPICAL TWICE A DAY 0 November 19, 2021 12:00am May 07, 2022 9:07am Start: 11-19-2021 End: 05-07-2022 Arthritis Pain Compound Disc ontinued 3 CLICK TOPICAL TWICE A DAY 0 November 19, 2021 1:00am May 07, 2022 10:07am benzonatate 100 mg oral capsule (7 sources) Non-narcotic Antitussive Start: 03-11-2025 take 1 capsule by mouth every eight hours as needed benzonatate (TESSALON PERLE) 100 mg capsule Take 1 capsule by mouth three times a day as needed. 21 capsule 03/11/2025 Active Start: 01-01-2024 End: 11-15-2024 take 1 capsule by mouth three times daily as needed for cough Benzonatate 200 mg capsule Discontinued 200 mg PO THREE TIMES A DAY as needed for cough 30 January 01, 2024 1:00am November 15, 2024 3:17pm 60 actuat budesonide 0.16 mg/actuat / formoterol fumarate 0.0045 mg/actuat metered dose inhaler (20 sources) Corticosteroid, beta2-Adrenergic Agonist Start: 06-11-2023 take 2 puff(s) by inhalation twice daily as needed SYMBICORT 160-4.5 mcg/actuation inhaler Inhale 2 Puffs as instructed two times a day. Uses as needed 06/11/2023 Active Start: 03-07-2023 Budesonide-For moterol (Symbicort) 160-4.5 mcg/actuation HFA aerosol inhaler Active 2 NMA INHALATION TWICE A DAY 10.2 March 07, 2023 12:00am Start: 03-07-2023 take 1 puff(s) by in halation twice daily Budesonide-Formoterol (Symbicort) 160-4.5 mcg/actuation HFA aerosol inhaler Active 2 PUFF INHALATION TWICE A DAY 10.2 March 06, 2023 11:00pm Start: 03-07-2023 take 1 puff(s) by in halation twice daily Budesonide-Formoterol (Symbicort) 160-4.5 mcg/actuation HFA aerosol inhaler Active 2 PUFF INHALATION TWICE A DAY 10.2 March 07, 2023 12:00am Comment on above: Inhale 2 Puffs as in structed two times a day. cholecalciferol 0.025 mg oral capsule (9 sources) Vitamin D Start : 03-07 take 1 capsule by mouth once daily Cholecalciferol (Vitamin D3) 25 mcg (1,000 unit) capsule Active 25 ug PO DAILY March 07, 2023 12:00am 0.4 ml enoxaparin sodium 100 mg/ml prefilled syringe (2 sources) Low Molecular Weight Heparin Start : 10-04 End: 11-13 inject 40 mg by subcutaneous injection every twenty-four hours enoxaparin (LOVENOX) 40 mg/0.4 mL Inject 0.4 mL subcutaneously q 24 HR. 8 mL 1 10/04/2022 11/13/2022 Active Comment on above: Inject 0.4 mL subcut aneously q 24 HR. etonogestrel 68 mg drug implant (18 sources) Progestin Start : 12-06 End: 12-05 etonogestrel (NEXPLANON) subdermal implant 68 mg 1 Each by SUBDERMAL route as directed. 1 Each 12/06/2022 12/05/2025 Active Comment on above: 1 Each by SUBDERMAL route as directed. methylPREDNISolone (1 source) Corticosteroid Start : 09-03 End: 09-09 methylPREDNISolone (MEDROL, PATRICE,) 4 mg Dose-Pack Indications: Rhinosinusitis Follow dosing instructions, take with food. 21 tablet 0 09/03/2023 09/09/2023 Active Comment on above: Follow dosing instru ctions, take with food. 24 hr metoprolol succinate 25 mg extended release oral tablet (20 sources) beta-Adrenergic Kasey Start : 05-07 take 25 mg by mouth twice daily Metoprolol Succinate Active 25 MG PO TWICE A DAY May 07, 2022 12:00am Start: 11-19-2021 End: 03-11-2022 take 1 tablet by mouth twice daily Metoprolol Tartrate 25 mg tablet Discontinued 25 mg PO BID@0700,1500 180 1 March 08, 2022 3:14pm March 11, 2022 1:49pm Comment on above: Take 25 mg by mouth twice daily. Nirmatrelvir-Ritonavir (1 source) Start: 2 Nirmatrelvir-Ritonav ir (Paxlovid (Eua)) 300 mg (150 mg x 2)-100 mg tablets,dose pack Active 0 PO .COMPLEX August 07, 2022 12:00am take TWO 150 mg tablets of nirmatrelvir with ONE 100 mg tablet of ritonavir twice daily for 5 days PO ondansetron 4 mg disintegrating oral tablet (7 sources) Serotonin-3 Receptor Antagonist Start: 3 take 1 tablet by mouth every eight hours as needed for nausea Ondansetron 4 mg tablet,disintegratin g Active 4 mg PO EVERY 8 HOURS NEEDED as needed for Nausea 10 April 23, 2023 12:00am perflutren lipid microspheres 1.3 mL in NaCl (PF) 0.9% 10 mL injection (DEFINITY) (20 sources) Start: 2 End: 4 perflutren lipid microspheres 1.3 mL in NaCl (PF) 0.9% 10 mL injection (DEFINITY) Start: 06-01-2022 End: 08-31-2023 perflutren lipid microsphere s 1.3 mL in NaCl (PF) 0.9% 10 mL injection (DEFINITY) 125 ml sodium chloride 9 mg/ ml prefilled syringe (20 sources) Start: 06-01-2022 End: 11-23-2023 sodium chloride 0.9 % (flush ) 10 mL (BD POSIFLUSH) Start: 12-25-2021 End: 05-07-2022 Sodium Chloride Discontinued 2 SPRAY INTRANASAL TWICE A DAY December 25, 2021 11:09am May 07, 2022 9:08am Start: 12-25-2021 End: 05-07-2022 Sodium Chloride Discontinued 2 SPRAY INTRANASAL TWICE A DAY December 25, 2021 12:09pm May 07, 2022 10:08am Start: 12-25-2021 Sodium Chlorid e Active 2 SPRAY INTRANASAL TWICE A DAY December 25, 2021 12:09pm Start: 11-09-2021 End: 12-25-2021 Sodium Chloride Discontinued 2 SPRAY INTRANASAL TWICE A DAY November 09, 2021 5:44pm December 25, 2021 12:09pm Start: 11-09-2021 End: 12-25-2021 Sodium Chloride Discontinued 2 SPRAY INTRANASAL TWICE A DAY November 09, 2021 12:00am December 25, 2021 11:09am Start: 11-09-2021 End: 12-25-2021 Sodium Chloride Discontinued 2 SPRAY INTRANASAL TWICE A DAY November 09, 2021 1:00am December 25, 2021 12:09pm venlafaxine 75 mg oral tablet (20 sources) Serotonin and Norepinephrine Reuptake Inhibitor Start: 01-09-2024 Venlafaxine Active 75 MG PO AT BEDTIME January 09, 2024 5:52pm Take with 150 for a total daily dose of 225 mg Start: 01-09-2024 End: 05-17-2024 Venlafaxine 75 mg capsule,ex tended release 24hr Discontinued 75 mg PO AT BEDTIME 90 0 January 09, 2024 5:52pm May 17, 2024 5:49pm Take with 150 for a total daily dose of 225 mg Start: 01-09-2024 End: 05-17-2024 take 1 capsule by mouth once daily Venlafaxine 150 mg capsule,extended release 24hr Discontinued 150 mg PO DAILY 90 0 January 09, 2024 5:52pm May 17, 2024 5:49pm Start: 10-18-2023 End: 01-09-2024 take 1 capsule by mouth every twenty-four hours at bedtime for depression Venlafaxine 75 mg capsule,extended release 24hr Discontinued 0 .ROUTE .COMPLEX 90 0 October 18, 2023 12:06pm January 09, 2024 5:53pm take 1 capsule by mouth at bedtime for depression TAKE WITH 150 MG CAPSULE Start: 10-18-2023 End: 01-09-2024 take 1 capsule by mouth at bedtime for depression Venlafaxine Discontinued 0 .ROUTE .COMPLEX 90 October 18, 2023 12:06pm January 09, 2024 5:53pm take 1 capsule by mouth at bedtime for depression TAKE WITH 150 MG CAPSULE Start: 10-18-2023 take 1 capsule by mo uth at bedtime for depression Venlafaxine Active 0 .ROUTE .COMPLEX 90 October 18, 2023 11:06am take 1 capsule by mouth at bedtime for depression TAKE WITH 150 MG CAPSULE Start: 12-08-2022 End: 10-18-2023 take 2 capsules by mouth once daily in the evening Venlafaxine 75 mg capsule,extended release 24hr Discontinued 75 mg PO EVERY EVENING 90 0 July 22, 2023 4:38pm October 18, 2023 12:06pm DEPRESSION Take with 150mg capsule. Start: 05-07-2022 End: 04-25-2024 take 4 capsules by mouth once daily Venlafaxine 37.5 mg capsule,extended release 24hr Discontinued 37.5 mg PO DAILY 90 2 August 31, 2022 5:16pm September 24, 2022 9:12am Take with 150mg capsule. Start: 11-19-2021 End: 01-09-2024 take 1 capsule by mouth once daily Venlafaxine 150 mg capsule,extended release 24hr Discontinued 0 .ROUTE .COMPLEX 90 0 July 22, 2023 4:38pm January 09, 2024 5:53pm take 1 capsule by mouth once daily Start: 11-09-2021 End: 11-19-2021 take 1 tablet by mouth once daily Venlafaxine 75 mg Tablet Discontinued 75 mg PO DAILY November 09, 2021 1:00am November 19, 2021 11:37am mood venlafaxine HCl (EFFEXOR ORAL) Take by mouth. 0 Active Comment on above: Take by mouth. Take 5 capsules by m outh once daily. Take 150 mg by mouth once daily. Take 1 capsule by mo uth once daily. Completed/Discontinued Medications Medication Drug Class(es) Dates Sig (Normalized) Sig (Original) amoxicillin 500 mg oral tablet (18 sources) Penicillin-class Antibacterial Start: 05-07-2022 End: 06-18-2022 take 1 tablet by mouth twice daily at mealtime Amoxicillin 500 mg tablet Discontinued 500 mg PO TWICE A DAY 20 0 May 07, 2022 12:00am June 18, 2022 10:12am Take with food apixaban 5 mg oral tablet (20 sources) Factor Xa Inhibitor Start: 11-09-2021 End: 12-25-2021 take 1 tablet by mouth twice daily Apixaban (Eliquis) 5 mg Tablet Discontinued 5 mg PO TWICE A DAY 60 0 November 19, 2021 11:44am December 25, 2021 12:08pm blood thinner ARIPiprazole 2 mg oral tablet (18 sources) Atypical Antipsychotic Start: 11-07-2023 End: 12-31-2023 take 1 tablet by mouth at bedtime Aripiprazole Discontinued 0 .ROUTE .COMPLEX 30 November 07, 2023 5:35pm December 31, 2023 11:17pm take 1 tablet by mouth at bedtime Start: 09-07-2023 End: 12-31-2023 take 1 tablet by mouth at bedtime Aripiprazole 2 mg tablet Discontinued 0 .ROUTE .COMPLEX 30 0 November 07, 2023 5:35pm December 31, 2023 11:17pm take 1 tablet by mouth at bedtime Start: 06-06-2023 End: 09-07-2023 take 1 tablet by mouth at bedtime Aripiprazole (Abilify) 5 mg tablet Discontinued 5 mg PO AT BEDTIME 30 1 June 06, 2023 12:00am September 07, 2023 6:50pm aspirin 81 mg delayed release oral tablet (20 sources) Platelet Aggregation Inhibitor, Nonsteroidal Anti-inflammatory Drug Start: 09-24-2022 End: 12-14-2022 take 1 tablet by mouth once daily Aspirin (Aspir-81) 81 mg Tablet,Delayed Release (Dr/Ec) Discontinued 81 mg PO DAILY September 24, 2022 1:00am December 14, 2022 9:52am take 1 capsule by mouth once clarice ly aspirin 81 mg cap Take 81 mg by mouth once daily. 0 Active Comment on above: Take by mouth. Take 81 mg by mouth once daily. azithromycin 250 mg oral tablet (17 sources) Macrolide Antimicrobial Start: 01-01-2024 End: 01-05-2024 Azithromycin (Zithromax Z-Patrice) 250 mg tablet Discontinued 0 PO .COMPLEX 6 0 January 01, 2024 1:00am January 05, 2024 2:29pm For 250 mg dose pack: take 500 mg today (day 1), then 250 mg for 4 days (days 2-5) Start: 12-14-2022 End: 12-22-2022 take 2-5 tablets by mouth once daily Azithromycin 250 mg tablet Discontinued 0 PO .COMPLEX 6 0 December 14, 2022 1:00am December 22, 2022 11:31am retirement current use of anticoagulant therapy retirement (current) use of anticoagulants take 500 mg today (day 1), then 250 mg for 4 days (days 2-5) PO biotin 1 mg oral capsule (20 sources) Start: 02-02-2023 End: 06-06-2023 take 1 capsule by mouth once daily Biotin 1 mg capsule Discontinued 1 mg PO DAILY February 02, 2023 12:00am June 06, 2023 10:23am End: 04-25-2024 BIOTIN ORAL Take by mouth. 0 04/25/2024 Discontinued End: 04-25-2024 BIOTIN ORAL Take by mouth. 0 04/25/2024 Discontinued BIOTIN ORAL Take by mouth. 0 Active Comment on above: Take by mouth. cariprazine 1.5 mg oral capsule (6 sources) Atypical Antipsychotic Start: 05-02-20 End: 06-06-20 take 1 capsule by mouth once daily Cariprazine (Vraylar) 1.5 mg capsule Discontinued 1.5 mg PO DAILY 90 May 02, 2023 12:00am June 06, 2023 10:23am cholecalciferol, vitamin D3, (VITAMIN D3 ORAL) (11 sources) End: 06-01-20 cholecalciferol, vitamin D3, (VITAMIN D3 ORAL) Take by mouth. 0 06/01/2022 Discontinued (Other) cholecalciferol, vitamin D3, (VITAMIN D3 ORAL) Take by mouth. 0 Active Comment on above: Take by mouth. 12 hr dextromethorphan hydrobromide 30 mg / guaiFENesin 600 mg extended release oral tablet (20 sources) Uncompetitive H-cbluau-X-aspartate Receptor Antagonist, Sigma-1 Agonist Start: End: Dextromethorphan-Guai fenesin (Mucus Dm) 30-600 mg Tablet Extended Release 12 Hr Discontinued 1 {tbl} PO TWICE A DAY 60 0 November 19, 2021 1:00am May 07, 2022 10:07am diphenhydrAMINE hydrochloride 25 mg oral tablet (19 sources) Histamine-1 Receptor Antagonist End: take 1 tablet by mouth every six hours as needed diphenhydrAMINE (BENADRYL) 25 mg tablet Take 25 mg by mouth every 6 hours as needed. 0 01/07/2023 Discontinued Comment on above: Take 25 mg by mouth every 6 hours as needed. doxycycline hyclate 100 mg oral capsule (1 source) Tetracycline-class Drug Start: End: take 1 capsule by mouth twice daily doxycycline hyclate (VIBRAMYCIN) 100 mg capsule Indications: Cough, persistent Take 1 capsule by mouth two times a day for 10 days. 20 capsule 01/29/2024 02/08/2024 famotidine 20 mg oral tablet (20 sources) Histamine-2 Receptor Antagonist Start: End: take 1 tablet by mouth twice daily Famotidine 20 mg Tablet Discontinued 20 mg PO TWICE A DAY November 09, 2021 1:00am November 19, 2021 11:42am gerd 12 hr guaiFENesin 600 mg extended release oral tablet (19 sources) Start: End: take 1 tablet by mouth twice daily guaiFENesin (MUCINEX) 600 mg 12 hr tablet Indications: Cough, persistent Take 1 tablet by mouth two times a day for 10 days. 20 tablet 01/29/2024 02/08/2024 Start: 05-07-2022 End: 06-18-2022 take 1 tablet by mouth every twelve hours as needed, then take 1 tablet by mouth every twelve hours as needed Guaifenesin (Mucinex) 600 mg tablet extended release 12hr Discontinued 600 mg PO Q12H as needed May 07, 2022 12:00am June 18, 2022 10:12am hydrOXYzine hydrochloride 10 mg oral tablet (20 sources) Antihistamine Start: 11-09-2021 End: 11-19-2021 take 1 tablet by mouth every four hours as needed for anxiety Hydroxyzine Hcl 10 mg Tablet Discontinued 10 mg PO Q4H as needed for anxiety or itching November 09, 2021 1:00am November 19, 2021 11:36am ibuprofen 600 mg oral tablet (6 sources) Nonsteroidal Anti-inflammatory Drug Start: 10-03-2022 End: 01-07-2023 take 1 tablet by mouth every six hours as needed ibuprofen (MOTRIN) 600 mg tablet Take 1 tablet by mouth every 6 hours as needed for pain. 30 tablet 1 10/03/2022 01/07/2023 Discontinued Comment on above: Take 1 tablet by vivien every 6 hours as needed for pain. ipratropium bromide 0.042 mg/actuat metered dose nasal spray (20 sources) Anticholinergic Start: 11-19-2021 End: 05-07-2022 Ipratropium [place] 42 mcg (0.06 %) Merom,Non-Aerosol Discontinued 2 NMA NASAL THREE TIMES A DAY as needed for Nasal Congestion 1 November 19, 2021 1:00am May 07, 2022 10:07am every 8 hours as needed for nasal congestion and post nasal drip Start: 11-19-2021 End: 05-07-2022 Ipratropium [place] Disconti nued 2 SPRAY NASAL THREE TIMES A DAY November 19, 2021 1:00am May 07, 2022 10:07am every 8 hours as needed for nasal congestion and post nasal drip labetalol hydrochloride 100 mg oral tablet (20 sources) beta-Adrenergic Kasey Start: 03-11-2022 End: 05-07-2022 take 1 tablet by mouth twice daily Labetalol 100 mg tablet Discontinued 100 mg PO TWICE A DAY 60 March 11, 2022 12:00am May 07, 2022 10:08am Comment on above: Take 100 mg by mouth twice daily. melatonin 3 mg oral tablet (20 sources) Start: 11-09-2021 End: 12-25-2021 take 1 tablet by mouth at bedtime Melatonin 3 mg Tablet Discontinued 3 mg PO AT BEDTIME November 19, 2021 11:44am December 25, 2021 12:09pm sleep Multivitamin With Iron (18 sources) Start: 11-19-2021 End: 03-11-2022 take 1 tablet by mouth once daily Multivitamin With Iron Discontinued 1 TABLET PO DAILY November 19, 2021 11:44am March 11, 2022 1:51pm Start: 11-19-2021 take 1 tablet by vivien th once daily Multivitamin With Iron Active 1 TABLET PO DAILY November 19, 2021 11:44am Start: 11-19-2021 End: 03-11-2022 take 1 tablet by mouth once daily Multivitamin With Iron Discontinued 1 TABLET PO DAILY November 19, 2021 12:00am March 11, 2022 12:51pm Start: 11-19-2021 End: 03-11-2022 take 1 tablet by mouth once daily Multivitamin With Iron Discontinued 1 TABLET PO DAILY November 19, 2021 1:00am March 11, 2022 1:51pm Multivitamin With Iron table t (2 sources) Start: 11-19-2021 End: 03-11-2022 Multivitamin With Iron table t Discontinued 1 {tbl} PO DAILY November 19, 2021 1:00am March 11, 2022 1:51pm OXYGEN, HOME THERAPY, (20 sources) End: 04-25-2024 OXYGEN, HOME THERAPY, Inhale as instructed as directed. 04/25/2024 Discontinued End: 04-25-2024 OXYGEN, HOME THERAPY, Inhale as instructed as directed. 0 04/25/2024 Discontinued OXYGEN, HOME THE RAPY, Inhale as instructed as directed. 0 Active Comment on above: Inhale as instructed as directed. pantoprazole 40 mg delayed release oral tablet (20 sources) Proton Pump Inhibitor Start: 2 End: 2 take 1 tablet by mouth once daily Pantoprazole 40 mg Tablet,Delayed Release (Dr/Ec) Discontinued 40 mg PO DAILY 30 November 19, 2021 1:00am December 25, 2021 12:09pm pediatric multivitamin no.76 (FLINTSTONES COMPLETE ORAL) (11 sources) End: 2 pediatric multivitamin no.76 (FLINTSTONES COMPLETE ORAL) Take by mouth. 0 06/01/2022 Discontinued (Other) pediatric multiv itamin no.76 (FLINTSTONES COMPLETE ORAL) Take by mouth. 0 Active Comment on above: Take by mouth. PNV no.95/ferrous fum/folic ac ( ORAL) (20 sources) End: 01-07-2023 PNV no.95/ferrous fum/folic ac ( ORAL) Take by mouth. 0 01/07/2023 Discontinued PNV no.95/ferrou s fum/folic ac ( ORAL) Take by mouth. 0 Active Comment on above: Take by mouth. predniSONE 20 mg oral tablet (6 sources) Start: 01-01-2024 End: 01-05-2024 take 2 tablets by mouth once daily Prednisone 20 mg tablet Discontinued 40 mg PO DAILY 10 5 0 January 01, 2024 1:00am January 05, 2024 2:30pm Start: 01-01-2024 End: 01-05-2024 take 40 mg by mouth once daily Prednisone Discontinued 40 MG PO DAILY 10 January 01, 2024 1:00am January 05, 2024 2:30pm Prenat.Vits,Jorge Alberto,Cqk-Vooz-Iqp ic (20 sources) Start: 09-24-2022 End: 01-05-2024 take 1 tablet by mouth once daily Prenat.Vits,Jorge Alberto,Nfi-Lgqu-Mvlla Discontinued 1 TABLET PO DAILY September 24, 2022 9:12am January 05, 2024 2:30pm Start: 09-24-2022 take 1 tablet by vivien th once daily Prenat.Vits,Jorge Alberto,Uss-Dyfd-Ihfhw Active 1 TABLET PO DAILY September 24, 2022 9:12am Start: 09-24-2022 take 1 tablet by vivien th once daily Prenat.Vits,Jorge Alberto,Poa-Zzfj-Bxmpn Active 1 TABLET PO DAILY September 24, 2022 8:12am Start: 08-31-2022 End: 09-24-2022 take 1 tablet by mouth once daily Prenat.Vits,Jorge Alberto,Muq-Eunq-Xujkc Discontin ued 1 TABLET PO DAILY August 31, 2022 5:16pm September 24, 2022 9:12am Start: 08-31-2022 End: 09-24-2022 take 1 tablet by mouth once daily Prenat.Vits,Jorge Alberto,Qja-Gbxf-Ckovc Discontin ued 1 TABLET PO DAILY August 31, 2022 4:16pm September 24, 2022 8:12am Start: 03-11-2022 take 1 tablet by vivien th once daily Prenat.Vits,Jorge Alberto,Pbd-Dubd-Uvviu Active 1 TABLET PO DAILY March 11, 2022 1:51pm Start: 03-11-2022 End: 08-31-2022 take 1 tablet by mouth once daily Prenat.Vits,Jorge Alberto,Obq-Nmjx-Gqaez Discontin ued 1 TABLET PO DAILY March 11, 2022 12:00am August 31, 2022 5:17pm Start: 03-11-2022 End: 08-31-2022 take 1 tablet by mouth once daily Prenat.Vits,Jorge Alberto,Ujz-Sgit-Rpmxx Discontin ued 1 TABLET PO DAILY March 10, 2022 11:00pm August 31, 2022 4:17pm Start: 03-11-2022 take 1 tablet by vivien th once daily Prenat.Vits,Jorge Alberto,Akw-Sacm-Ouudz Active 1 TABLET PO DAILY March 11, 2022 12:00am Prenat.Vits,Jorge Alberto,Sza-Qpoc-Gth ic tablet (6 sources) Start: 09-24-2022 End: 01-05-2024 Prenat.Vits,Jorge Alberto,Eja-Ovfu-Hvb ic tablet Discontinued 1 {tbl} PO DAILY September 24, 2022 9:12am January 05, 2024 2:30pm Start: 08-31-2022 End: 09-24-2022 Prenat.Vits,Jorge Alberto,Beq-Wjxg-Plt ic tablet Discontinued 1 {tbl} PO DAILY August 31, 2022 5:16pm September 24, 2022 9:12am Start: 03-11-2022 End: 08-31-2022 Prenat.Vits,Jorge Alberto,Mib-Nceu-Ero ic tablet Discontinued 1 {tbl} PO DAILY 90 March 11, 2022 12:00am August 31, 2022 5:17pm simethicone 80 mg oral capsule (20 sources) Start: 11-09-2021 End: 11-19-2021 take 1 tablet by mouth every six hours as needed Simethicone 80 mg Tablet Discontinued 80 mg PO EVERY 6 HOURS as needed for Gas November 09, 2021 1:00am November 19, 2021 11:36am Sodium Chloride 0.65 % Mist (2 sources) Start: 11-09-2021 End: 12-25-2021 Sodium Chloride 0.65 % Mist Discontinued 2 NMA INTRANASAL TWICE A DAY November 09, 2021 1:00am December 25, 2021 12:09pm congestion Sodium Chloride 0.65 % mist (2 sources) Start: 12-25-2021 End: 05-07-2022 Sodium Chloride 0.65 % mist Discontinued 2 NMA INTRANASAL TWICE A DAY as needed for congestion December 25, 2021 12:09pm May 07, 2022 10:08am 60 actuat tiotropium 0.0025 mg/actuat inhalation spray (11 sources) Anticholinergic Start: 12-14-2022 End: 03-07-2023 take 2.5 ug by inhalation once daily Tiotropium [place] (Spiriva Respimat) 2.5 mcg/actuation mist Discontinued 2 NMA INHALATION daily 1 December 14, 2022 1:00am March 07, 2023 10:00am 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 0 01/07/2023 Discontinued vit A/vit C/biot in/zinc/copper (YCBS-JKNI-MRNZ,VIT A,C-BIOTIN, ORAL) Take by mouth. 0 Active Comment on above: Take by mouth. Problems Active Problems Problem Classification Problem Date Documented Da te Episodic/Chronic Acquired foot deformities (20 sources) Foot-drop; Translations: [Foot drop, left foot] Episodic Acute and chronic tonsillitis (20 sources) Enlarged tonsil; Translations: [Hypertrophy of tonsils] Chronic Acute bronchitis (3 sources) Acute bronchitis with bronchospasm; Translations: [Acute bronchitis, unspecified] 01-29-2024 Episodic Administrative/social admission (3 sources) Encounter for examination for admission to educational institution; Translations: [Health examination of defined subpopulations] 01-05-2024 Episodic Allergic reactions (20 sources) Inflammatory dermatosis; Translations: [Dermatitis, unspecified] Episodic Anxiety disorders (20 sources) Mixed anxiety and depressive disorder; Translations: [Other specified anxiety disorders] Onset: 5 Chronic Asthma (20 sources) Asthma; Translations: [Unspecified asthma, uncomplicated] Onset: 5 Chronic Bacterial infection; unspecified site (1 source) Other specified bacterial agents as the cause of diseases classified elsewhere; Translations: [Bacterial sinusitis] Onset: 5 Episodic Blindness and vision defects (3 sources) Blurring of visual image; Translations: [Other visual disturbances] Onset: 5 11-15-2024 Episodic Cardiac dysrhythmias (20 sources) Tachycardia; Translations: [Tachycardia, unspecified] Onset: 2 Episodic Chronic obstructive pulmonary disease and bronchiectasis (14 sources) Bronchitis; Translations: [Bronchitis, not specified as acute or chronic] 10-03-2022 Episodic Deficiency and other anemia (20 sources) Anemia; Translations: [Anemia, unspecified] 11-19-2021 Episodic Deficiency and other anemia (1 source) Anemia, unspecified; Translations: [Anemia, unspecified] Episodic Fluid and electrolyte disorders (13 sources) Acute hypokalemia; Translations: [Hypokalemia] 04-23-2023 Episodic Genitourinary symptoms and ill-defined conditions (20 sources) History of recurrent urinary tract infection; Translations: [Personal history of urinary (tract) infections] Episodic Comment on above: due to Pseudomonas a nd likely due to Izquierdo catheters while hospitalized with COVID for 3 months Immunizations and screening for infectious disease (9 sources) Vaccination needed; Translations: [Encounter for immunization] Episodic Malaise and fatigue (20 sources) Asthenia; Translations: [Other malaise] Episodic Menstrual disorders (3 sources) Irregular periods; Translations: [Irregular menstruation, unspecified] Onset: 4 04-25-2024 Chronic Miscellaneous mental health disorders (20 sources) depression; Translations: [ depression] 12-08-2022 Episodic Mood disorders (10 sources) Depressive disorder; Translations: [Depression] 04-06-2023 Chronic Other aftercare (20 sources) Long-term current use of anticoagulant; Translations: [retirement (current) use of anticoagulants] 11-10-2021 Episodic Other aftercare (1 source) retirement (current) use of anticoagulants; Translations: [Long-term (current) use of anticoagulants] Episodic Other complications of ; puerperium affecting management of mother (1 source) Encounter for delivery without indication; Translations: [Delivery of by section] Onset: 2 Episodic Other complications of ; puerperium affecting management of mother (8 sources) Other disorders of ; Translations: [Other disorders of , unspecified as to episode of care or not applicable] 10-18-2022 Episodic Other complications of (1 source) Obesity complicating , unspecified trimester; Translations: [Obesity in ] Onset: 2 Chronic Other complications of (20 sources) High risk ; Translations: [Supervision of high risk , unspecified, unspecified trimester] Onset: 2 Resolved: 2 Episodic Other complications of (15 sources) Excessive growth affecting management of mother; Translations: [Maternal care for excessive growth, unspecified trimester, not applicable or unspecified] 09-21-2022 Episodic Other complications of (1 source) Diseases of the respiratory system complicating , third trimester; Translations: [Respiratory system disease complicating in third trimester] Onset: 2 Episodic Other complications of (13 sources) Headache; Translations: [Other specified related conditions, unspecified trimester] 10-19-2022 Episodic Other complications of (4 sources) Other specified related conditions, unspecified trimester; Translations: [Other specified complications of , unspecified as to episode of care or not applicable] 09-25-2022 Episodic Other connective tissue disease (1 source) Pain in left foot; Translations: [Pain in left foot] 03-24-2023 Episodic Other gastrointestinal disorders (7 sources) Acute diarrhea; Translations: [Diarrhea, unspecified] 04-23-2023 Episodic Other infections; including parasitic (20 sources) Post-viral disorder; Translations: [[id number] condition] Chronic Other liver diseases (2 sources) Increased bilirubin level; Translations: [Unspecified jaundice] 05-28-2024 Episodic Other liver diseases (1 source) Unspecified jaundice; Translations: [Unspecified jaundice] Onset: 5 Episodic Other lower respiratory disease (20 sources) Post-inflammatory pulmonary fibrosis; Translations: [Pulmonary fibrosis, unspecified] Chronic Other lower respiratory disease (8 sources) Pulmonary fibrosis, unspecified; Translations: [Postinflammatory pulmonary fibrosis] Chronic Other lower respiratory disease (20 sources) Cough; Translations: [[id number] syndrome manifesting as chronic cough] Episodic Other lower respiratory disease (20 sources) Restrictive lung disease; Translations: [Other disorders of lung] 02-02-2022 Episodic Other lower respiratory disease (17 sources) Dyspnea; Translations: [Dyspnea, unspecified] 07-12-2022 Episodic Other lower respiratory disease (20 sources) Cough; Translations: [Cough] Episodic Other lower respiratory disease (15 sources) Dyspnea on exertion; Translations: [Other forms of dyspnea] 09-01-2022 Episodic Other lower respiratory disease (10 sources) Other disorders of lung; Translations: [Other diseases of lung, not elsewhere classified] 11-02-2022 Episodic Other lower respiratory disease (1 source) Persistent cough; Translations: [Cough, persistent] 01-30-2024 Episodic Other non-traumatic joint disorders (1 source) Acute ankle pain; Translations: [Pain in left ankle and joints of left foot] 03-24-2023 Episodic Other nutritional; endocrine; and metabolic disorders (20 sources) Obesity; Translations: [Obesity, unspecified] Onset: 2 Resolved: 2 Chronic Other nutritional; endocrine; and metabolic disorders (20 sources) Body mass index 40+ - severely obese; Translations: [Body mass index (BMI) 45.0-49.9, adult] Onset: 3 09-21-2022 Chronic Other nutritional; endocrine; and metabolic disorders (3 sources) Obesity, unspecified; Translations: [Obesity, unspecified] 01-10-2024 Chronic Other nutritional; endocrine; and metabolic disorders (2 sources) Morbid obesity; Translations: [Morbid (severe) obesity due to excess calories] 05-16-2025 Chronic Other and delivery including normal (20 sources) Patient encounter status; Translations: [Encounter for supervision of normal first , first trimester] Onset: 2 Resolved: 3 Episodic Other screening for suspected conditions (not mental disorders or infectious disease) (20 sources) CT of chest abnormal; Translations: [Abnormal findings on diagnostic imaging of other specified body structures] Chronic Other skin disorders (20 sources) Mass of thoracic structure; Translations: [Localized swelling, mass and lump, trunk] 11-10-2021 Episodic Comment on above: RLL Other skin disorders (1 source) Localized swelling, mass and lump, trunk; Translations: [Swelling, mass, or lump in chest] Episodic Other skin disorders (1 source) Carola incarnati; 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] Episodic Other upper respiratory infections (3 sources) Chronic sinusitis, unspecified; Translations: [Unspecified sinusitis (chronic)] Onset: 5 09-03-2023 Chronic Other upper respiratory infections (20 sources) Acute pharyngitis, unspecified; Translations: [Acute pharyngitis] Episodic Otitis media and related conditions (1 source) Acute bilateral otitis media ; Translations: [Otitis media, unspecified, bilateral] 09-03-2023 Episodic Phlebitis; thrombophlebitis and thromboembolism (20 sources) Deep venous thrombosis; Translations: [Acute embolism and thrombosis of unspecified deep veins of unspecified lower extremity] Onset: 2 Resolved: 3 Episodic Comment on above: RLE Pulmonary heart disease (20 sources) Pulmonary hypertension; Translations: [Pulmonary hypertension, unspecified] Chronic Residual codes; unclassified (11 sources) Daytime hypersomnia; Translations: [Hypersomnia, unspecified] 12-14-2022 Chronic Residual codes; unclassified (4 sources) Hypersomnia, unspecified; Translations: [Hypersomnia, unspecified] 12-14-2022 Chronic Residual codes; unclassified (1 source) Gestation period, 9 weeks; Translations: [9 weeks gestation of ] Episodic Residual codes; unclassified (2 sources) Gestation period, 12 weeks; Translations: [12 weeks gestation of ] Episodic Residual codes; unclassified (19 sources) Gestation period, 16 weeks; Translations: [16 weeks gestation of ] Episodic Residual codes; unclassified (3 sources) 16 weeks gestation of ; Translations: [ state, incidental] Episodic Residual codes; unclassified (2 sources) Gestation period, 20 weeks; Translations: [20 weeks gestation of ] Episodic Residual codes; unclassified (1 source) Gestation period, 24 weeks; Translations: [24 weeks gestation of ] Episodic Residual codes; unclassified (4 sources) 22 weeks gestation of ; Translations: [ state, incidental] Episodic Residual codes; unclassified (2 sources) Gestation period, 28 weeks; Translations: [28 weeks gestation of ] Episodic Residual codes; unclassified (1 source) Gestation period, 32 weeks; Translations: [32 weeks gestation of ] Episodic Residual codes; unclassified (1 source) Gestation period, 35 weeks; Translations: [35 weeks gestation of ] Episodic Residual codes; unclassified (1 source) Gestation period, 36 weeks; Translations: [36 weeks gestation of ] Episodic Residual codes; unclassified (16 sources) Gestation period, 37 weeks; Translations: [37 weeks gestation of ] Episodic Residual codes; unclassified (1 source) Personal history of other specified conditions; Translations: [History of tachycardia] Onset: Episodic Respiratory failure; insufficiency; arrest (adult) (20 sources) Chronic hypoxemic respiratory failure; Translations: [Chronic respiratory failure with hypoxia] Chronic Sprains and strains (20 sources) Temporomandibular joint disorder; Translations: [Sprain of jaw, unspecified side, initial encounter] Episodic Unclassified (2 sources) Encounter for preventive care Unclassified (2 sources) Z00.00 - Encounter for general adult medical examination without abnormal findings Viral infection (20 sources) Disease caused by 2019-nCoV; Translations: [COVID-19] Episodic Past or Other Problems Problem Classification Problem Date Documented Da te Episodic/Chronic Diabetes or abnormal glucose tolerance complicating ; childbirth; or the puerperium (20 sources) Abnormal glucose level; Translations: [Abnormal glucose complicating ] Onset: 07-27-2022 Resolved: 10-03-2022 07-27-2022 Episodic Other complications of (14 sources) Nausea and vomiting; Translations: [Vomiting of , unspecified] Onset: 03-11-2022 Resolved: 06-01-2022 Episodic Other complications of (20 sources) Disease of respiratory system complicating ; Translations: [Diseases of the respiratory system complicating , third trimester] Onset: 03-11-2022 Episodic Other complications of (6 sources) Vomiting of , unspecified; Translations: [Unspecified vomiting of , unspecified as to episode of care or not applicable] Onset: 03-11-2022 Resolved: 06-01-2022 06-01-2022 Episodic Other complications of (1 source) Disorder of respiratory system; Translations: [Diseases of the respiratory system complicating , third trimester] Onset: 03-11-2022 10-03-2022 Episodic Other infections; including parasitic (18 sources) Personal history of other infectious and parasitic diseases; Translations: [History of COVID-19] Onset: 03-11-2022 Episodic Residual codes; unclassified (20 sources) History of clinical finding in subject; Translations: [Personal history of other specified conditions] Onset: 03-11-2022 Resolved: 12-06-2022 Episodic Residual codes; unclassified (20 sources) FH: Congenital heart disease; Translations: [Family history of other congenital malformations, deformations and chromosomal abnormalities] Onset: 03-11-2022 Episodic Screening and history of mental health and substance abuse codes (20 sources) H/O: depression; Translations: [Personal history of other mental and behavioral disorders] Onset: 03-11-2022 Episodic Results Test Name Value Interpretation Reference Range Facility Absolute lymphocyte countOrd ered By: Matt Mendoza on 05-16-2025 Lymphocytes Auto (Unsp spec) [#/Vol] 2.88 10*3/uL 0.83-4.51 [facility] Absolute neutrophil countOrd ered By: Matt Mendoza on 05-16-2025 Neutrophils (Bld) [#/Vol] 4.1 10*3/uL 2.0-7.7 [facility] Anion gap in Serum or Plasma Ordered By: Matt Mendoza on 05-16-2025 Anion gap [Moles/Vol] 13 mmol/L 5-15 [facility] Automated lymphocyte count a s percentage of total leukocytesOrdered By: Matt Mendoza on 05-16-2025 Lymphocytes/100 WBC Auto (Unsp spec) 36.8 % 19-41 [facility] BUN/creatinine ratioOrdered By: javon Mendoza on 05-16-2025 Urea nitrogen/Creatinine [Mass ratio] 12.2 mg/mg 10-20 [facility] Basophil percentageOrdered B y: Matt Mendoza on 05-16-2025 Basophils/100 WBC (Bld) 0.6 % 0-1 [facility] Bilirubin, totalOrdered By: Matt Mendoza on 05-16-2025 Bilirubin [Mass/Vol] 0.82 mg/dL 0.00-1.30 [facility] CBC W/Diff, Automatedon 07- Absolute Lymph 2.88 X10 3/uL Normal 0.83-4.51 [facility] Comment on above: Performed By: #### L 506.1001, L100.0100, [id number], [id number] #### [facility] [address] [place], [address] Absolute Neut 4.1 X10 3/uL Normal 2.0-7.7 [facility] Comment on above: Performed By: #### L 506.1001, L100.0100, [id number], [id number] #### [facility] [address] [place], [address] Basophils/100 WBC (Bld) 0.6 % Normal 0-1 [facility] Comment on above: Performed By: #### L 506.1001, L100.0100, [id number], [id number] #### [facility] [address] [place], [address] Eosinophils/100 WBC (Bld) 4.2 % Normal 0-5 [facility] Comment on above: Performed By: #### L 506.1001, L100.0100, [id number], [id number] #### [facility] [address] [place], [address] Erythrocyte distribution width (RBC) [Ratio] 12.6 % Normal 11.6-14.6 [facility] Comment on above: Performed By: #### L 506.1001, L100.0100, [id number], [id number] #### [facility] [address] [place], [address] Hematocrit (Bld) [Volume fraction] 39.6 % Normal 37-47 [facility] Comment on above: Performed By: #### L 506.1001, L100.0100, [id number], [id number] #### [facility] [address] [place], [address] Hemoglobin (Bld) [Mass/Vol] 13.3 g/dL Normal 12.0-15.0 [facility] Comment on above: Performed By: #### L 506.1001, L100.0100, [id number], [id number] #### [facility] [address] [place], [address] IG% 0.300 Normal 0.0-0.9 [facility] Comment on above: Result Comment: IG% - Immature Granulocytes (promyelocytes, myelocytes and metamyelocytes) > 1% indicates that a LEFT SHIFT is Present. Performed By: #### L 506.1001, L100.0100, [id number], [id number] #### [facility] [address] [place], [address] Lymphocytes/100 WBC (Bld) 36.8 % Normal 19-41 [facility] Comment on above: Performed By: #### L 506.1001, L100.0100, [id number], [id number] #### [facility] [address] [place], [address] MCH (RBC) [Entitic mass] 28.1 pg Normal 27.0-32.0 [facility] Comment on above: Performed By: #### L 506.1001, L100.0100, [id number], [id number] #### [facility] [address] [place], [address] MCHC (RBC) [Mass/Vol] 33.6 g/dL Normal 32-36 [facility] Comment on above: Performed By: #### L 506.1001, L100.0100, [id number], [id number] #### [facility] [address] [place], [address] MCV (RBC) [Entitic vol] 83.7 fL Normal 81-99 [facility] Comment on above: Performed By: #### L 506.1001, L100.0100, [id number], [id number] #### [facility] [address] [place], [address] Monocytes/100 WBC (Bld) 5.2 % Normal 0-10 [facility] Comment on above: Performed By: #### L 506.1001, L100.0100, [id number], [id number] #### [facility] [address] [place], [address] Neutrophils/100 WBC (Bld) 52.9 % Normal 47-70 [facility] Comment on above: Performed By: #### L 506.1001, L100.0100, [id number], [id number] #### [facility] [address] [place], [address] Nucleated RBC (Bld) [#/Vol] 0 10*3/uL Normal 0-5 [facility] Comment on above: Performed By: #### L 506.1001, L100.0100, [id number], [id number] #### [facility] [address] [place], [address] Platelet mean volume (Bld) [Entitic vol] 11.6 fL Normal 6.2-12.0 [facility] Comment on above: Performed By: #### L 506.1001, L100.0100, [id number], [id number] #### [facility] [address] [place], [address] Platelets (Bld) [#/Vol] 257 10*3/uL Normal 150-450 [facility] Comment on above: Performed By: #### L 506.1001, L100.0100, [id number], [id number] #### [facility] [address] [place], [address] RBC (Bld) [#/Vol] 4.73 10*6/uL Normal 4.2-5.4 [facility] Comment on above: Performed By: #### L 506.1001, L100.0100, L500.4050, L500.4100 #### [facility] [address] [place], [address] RDW SD 38.6 fl Normal 35.1-43.9 [facility] Comment on above: Performed By: #### L 506.1001, L100.0100, L500.4050, L500.4100 #### [facility] [address] [place], [address] WBC (Bld) [#/Vol] 7.8 10*3/uL Normal 4.4-11.0 [facility] Comment on above: Performed By: #### L 506.1001, L100.0100, L500.4050, L500.4100 #### [facility] [address] [place], [address] Calculated very low density lipoprotein (VLDL) cholesterol measurementOrdered By: Matt Mendoza on 05-16-2025 Calculated very low density lipoprotein (VLDL) cholesterol measurement 23 mg/dL 5-40 [facility] Carbon dioxide, total [Moles /volume] in Central venous bloodOrdered By: Matt Mendoza on 05-16-2025 CO2 [Moles/Vol] 22.4 mmol/L 21.0-32.0 [facility] Chloride assayOrdered By: Amrik Mendoza on 05-16-2025 Chloride [Moles/Vol] 108 mmol/L 98-108 [facility] Comprehensive Metabolic Prof ilon 05-16-2025 Albumin [Mass/Vol] 4.3 g/dL Normal 3.5-5.0 [facility] Comment on above: Performed By: #### L 100.0100, L506.0400, L500.4050, L500.4100, L501.9520 #### [facility] [address] [place], [address] Albumin/Globulin [Mass ratio] 1.5 {ratio} Normal 0.9-2.4 [facility] Comment on above: Performed By: #### L 100.0100, L506.0400, L500.4050, L500.4100, L501.9520 #### [facility] [address] [place], [address] ALK PHOS 43 U/L Normal 35-104 [facility] Comment on above: Performed By: #### L 100.0100, L506.0400, L500.4050, L500.4100, L501.9520 #### [facility] [address] [place], [address] ALT [Catalytic activity/Vol] 25 U/L Normal <=34 [facility] Comment on above: Performed By: #### L 100.0100, L506.0400, L500.4050, L500.4100, L501.9520 #### [facility] [address] [place], [address] AST [Catalytic activity/Vol] 27 U/L Normal <=31 [facility] Comment on above: Performed By: #### L 100.0100, L506.0400, L500.4050, L500.4100, L501.9520 #### [facility] [address] [place], [address] Bilirubin [Mass/Vol] 0.82 mg/dL Normal 0.00-1.30 [facility] Comment on above: Performed By: #### L 100.0100, L506.0400, L500.4050, L500.4100, L501.9520 #### [facility] [address] [place], [address] BUN/CRE 12.2 RATIO Normal 10-20 [facility] Comment on above: Performed By: #### L 100.0100, L506.0400, L500.4050, L500.4100, L501.9520 #### [facility] [address] [place], [address] Calcium [Mass/Vol] 9.4 mg/dL Normal 7.6-11.0 [facility] Comment on above: Performed By: #### L 100.0100, L506.0400, L500.4050, L500.4100, L501.9520 #### [facility] [address] [place], [address] Chloride [Moles/Vol] 108 mmol/L Normal 98-108 [facility] Comment on above: Performed By: #### L 100.0100, L506.0400, L500.4050, L500.4100, L501.9520 #### [facility] [address] [place], [address] CO2 [Moles/Vol] 22.4 mmol/L Normal 21.0-32.0 [facility] Comment on above: Performed By: #### L 100.0100, L506.0400, L500.4050, L500.4100, L501.9520 #### [facility] [address] [place], [address] Creatinine [Mass/Vol] 0.93 mg/dL Normal 0.70-1.20 [facility] Comment on above: Performed By: #### L 100.0100, L506.0400, L500.4050, L500.4100, L501.9520 #### [facility] [address] [place], [address] GAP 13 Normal 5-15 [facility] Comment on above: Performed By: #### L 100.0100, L506.0400, L500.4050, L500.4100, L501.9520 #### [facility] [address] [place], [address] GFR/1.73 sq M.predicted among non-blacks MDRD (S/P/Bld) [Vol rate/Area] 87 mL/min/{1.73_m2} Normal >60 [facility] Comment on above: Result Comment: mL/m in/1.73m2 CKD-EPI Creatinine Equation (2020) Performed By: #### L 100.0100, L506.0400, L500.4050, L500.4100, L501.9520 #### [facility] [address] [place], [address] Globulin (S) [Mass/Vol] 2.8 g/dL Normal 2.2-4.2 [facility] Comment on above: Performed By: #### L 100.0100, L506.0400, L500.4050, L500.4100, L501.9520 #### [facility] [address] [place], [address] Glucose [Mass/Vol] 91 mg/dL Normal 70-99 [facility] Comment on above: Performed By: #### L 100.0100, L506.0400, L500.4050, L500.4100, L501.9520 #### [facility] [address] [place], [address] Potassium [Moles/Vol] 3.7 mmol/L Normal 3.3-5.1 [facility] Comment on above: Performed By: #### L 100.0100, L506.0400, L500.4050, L500.4100, L501.9520 #### [facility] [address] [place], [address] Sodium [Moles/Vol] 144 mmol/L Normal 133-145 [facility] Comment on above: Performed By: #### L 100.0100, L506.0400, L500.4050, L500.4100, L501.9520 #### [facility] [address] [place], [address] T PROT 7.2 g/dL Normal 5.9-8.4 [facility] Comment on above: Performed By: #### L 100.0100, L506.0400, L500.4050, L500.4100, L501.9520 #### [facility] [address] [place], [address] Urea nitrogen [Mass/Vol] 11 mg/dL Normal 4-19 [facility] Comment on above: Performed By: #### L 100.0100, L506.0400, L500.4050, L500.4100, L501.9520 #### [facility] [address] [place], [address] Eosinophil percentageOrdered By: Matt Mendoza on 05-16-2025 Eosinophils/100 WBC (Bld) 4.2 % 0-5 [facility] Erythrocyte distribution wid th ratioOrdered By: Kaitygreeleykimberly Mendoza on 05-16-2025 Erythrocyte distribution width (RBC) [Ratio] 12.6 % 11.6-14.6 [facility] Erythrocyte distribution wid th standard deviationOrdered By: Matt Mendoza on 05-16-2025 Erythrocyte distribution width (RBC) [Ratio] 38.6 fl 35.1-43.9 [facility] Glomerular filtration rate ( GFR) estimation/1.73 sq m using serum, plasma, or whole bOrdered By: Matt Mendoza on 05-16-2025 GFR/1.73 sq M.predicted among non-blacks MDRD (S/P/Bld) [Vol rate/Area] 87 mL/min/{1.73_m2} >60 [facility] Comment on above: mL/min/1.73m2 CKD-EP I Creatinine Equation (2020) Hematocrit Auto (Bld) [Volum e fraction]Ordered By: Matt Mendoza on 05-16-2025 Hematocrit (Bld) [Volume fraction] 39.6 % 37-47 [facility] Hemoglobin measurementOrdere d By: Matt Mendoza on 05-16-2025 Hemoglobin (Bld) [Mass/Vol] 13.3 g/dL 12.0-15.0 [facility] Immature granulocytes/100 WB C Auto (Bld)Ordered By: Matt Mendoza on 05-16-2025 Immature granulocytes/100 WBC (Bld) 0.300 % 0.0-0.9 [facility] Comment on above: IG% - Immature Granu locytes (promyelocytes, myelocytes and metamyelocytes) > 1% indicates that a LEFT SHIFT is Present. Internal Medicine Office Vis iton 05-16-2025 Internal Medicine Office Visit [facility] [place] [address] [place] [address] OFFICE VISIT Date of Service: 05/16/25 MR#: [id number] Acct: [id number] Name: ALEYDA MEJÍA Rep #: [id number] : 2000 Provider: Dr. Matt pimentel MD Age/Sex: 25/F Location: [facility] [place] Status: Signed Intake Vital Signs 11/15/24 14:20 05/16/25 13:57 Height 5 ft 11 in 5 ft 11 in Weight: 303 lb 2 oz BMI 42.3 BP 128/68 H Blood Pressure Location Rt brachial Position Sitting Respiration 16 Pulse 104 H Pulse Source Monitor Temp 97.4 F L Temp Source Temporal Pulse Oximetry (%) 92 Oxygen Delivery Method room air Intake Visit Reasons: 6 m fu Chief Complaint: FU chronic condition/yearly. Medical Record Administrator Required: No Accompanied by: Self Is patient in pain?: No Allergies No Known Allergies Allergy (Verified 05/16/25 13:50) Medications ???Medication ???Instructions ???Recorded ???Confirmed ???Type albuterol sulfate 90 mcg/actuation 2 puff inhalation Q4H PRN 05/16/25 Rx aerosol inhaler shortness of breath or wheezing #8.5 grams budesonide-formoterol HFA 160 2 puff inhalation BID #10.2 grams 03/07/23 05/16/25 Rx mcg-4.5 mcg/actuation aerosol inhaler (Symbicort) cholecalciferol (vitamin D3) 25 25 mcg PO DAILY 03/07/23 05/16/25 History mcg (1,000 unit) capsule ondansetron 4 mg disintegrating 4 mg PO Q8H PRN PRN Nausea #10 tab s 04/23/23 05/16/25 Rx tablet albuterol sulfate 0.63 mg/3 mL 0.63 mg (3 mL) inhalation Q4H PRN 01/01/24 05/16/25 Rx solution for nebulization shortness of breath or wheezing #90 mL Nurse's Note: fu things are going well [facility] Medical History (Updated 05/16/25 @ 14:[address] Matt Mendoza MD) Morbid obesity Blurry vision Elevated bilirubin Preventative health care Screening for thyroid disorder School physical exam Screening-pulmonary TB Hypokalemia URI (upper respiratory infection) Post depression Fatigue Hx of Clostridium difficile infection Depression Anxiety Alcohol use Anemia DVT (deep venous thrombosis) Restless leg Back pain Ventilator associated pneumonia Heartburn during Nonsmoker On home oxygen therapy Edema COVID Cough Sore throat Tonsillar enlargement 16 weeks gestation of Dermatitis Sprain and strain of temporomandibular joint Acute respiratory failure due to COVID-19 History of pneumothorax Recurrent pneumothorax after chest tube removed History of COVID-19 Hx of recurrent urinary tract infection Cranial neuropathy Ophthalmoplegia of right eye Exotropia History of malnutrition C. difficile enteritis Obesity Anemia DVT (deep venous thrombosis) Surgical History History of placement of chest tube History of tracheostomy Family History Mother Diabetes Grandmother Hypertension Leukemia Social History adopted: No household members: significant other housing: house number of children: 0 current occupational status: unemployed history of recent travel: No Smoking Status: Never smoker alcohol intake: former details: rare ETOH prior to COVID infection in July 2021. None currently substance use type: does not use HPI HPI Chief Complaint: FU chronic condition/yearly. Details: ALEYDA MEJÍA, is a 25 F who presents to the office today for follow-up of her chronic conditions/yearly. No acute concerns at this time. Has been relatively stable since her last visit. Chronic history of depression and recently started online therapy sessions which so far has gone well. Has had 1 session and is scheduled for another 1 next week. Due to childcare constraints, she plans to have therapy every other week. History of asthma, stable. She states that she has not had to use her Symbicort inhaler, just albuterol as needed. Oxygen saturation generally greater than 90%. Other chronic medical conditions are stable. Has not had a Pap smear. Recently started making dietary lifestyle changes, exercising once a week at least. ROS Const Constitutional: No body ache, excessive sweating, fatigue, fever(s), frequent falls, headache(s), snoring, weakness, weight change, sleep problems or change in appetite Eyes Eyes: No blurry vision, change in vision, vision loss, dry eyes, eye pain or Light sensitivity ENT ENT: No abnormal hearing, ear or mastoid pain, tinnitus, dizziness/vertigo, nasal congestion, headache(s), neck pain or sore throat Resp Respiratory: No cough, excessive phlegm production, hemoptysis, shortness of breath, snoring or wheezing Cardio Cardiology: No chest pain at rest, chest pain with exertion, excessive sweating, sh (more content not included)... Normal [facility] LDL calc ser/plasOrdered By: Matt Mendoza on 05-16-2025 Cholesterol in LDL [Mass/Vol] 84 mg/dL [facility] Comment on above: Ctgkfwbpkb=553-705 m g/dL & Higher Lhho=549 mg/dL or greater Laboratory - Chemistry and C hemistry - challengeOrdered By: Matt Mendoza on 05-16-2025 AST [Catalytic activity/Vol] 27 U/L <32 [facility] Lipid Profileon 05-16-2025 CHOL:HDL 3.58 Normal [facility] Comment on above: Performed By: #### L 100.0100, L506.0400, L500.4050, L500.4100, L501.9520 #### [facility] [address] [place], [address] Cholesterol [Mass/Vol] 148 mg/dL Normal <=200 [facility] Comment on above: Result Comment: Chol esterol level, Desirable <200 mg/dL Borderline high cholesterol 200-239 mg/dL High cholesterol >=240 mg/dL Recommendations of the NCEP Adult Treatment Panel for the following risk-cutoff thresholds for the [place] population. Performed By: #### L 100.0100, L506.0400, L500.4050, L500.4100, L501.9520 #### [facility] [address] [place], [address] Cholesterol in HDL [Mass/Vol] 41 mg/dL Normal [facility] Comment on above: Result Comment: Gertrude onal Cholesterol Education Program (NCEP) guidelines: <40 mg/dL: Low HDL-cholesterol (major risk factor for CHD) >= 60 mg/dL: High HDL-cholesterol (negative risk factor for CHD) HDL-cholesterol is affected by a number of factors, e.g. smoking, exercise, hormones, sex and age. Performed By: #### L 100.0100, L506.0400, L500.4050, L500.4100, L501.9520 #### [facility] [address] [place], [address] Cholesterol in LDL [Mass/Vol] 84 mg/dL Normal [facility] Comment on above: Result Comment: Bord hpbvos=977-895 mg/dL Higher Lsqg=730 mg/dL or greater Performed By: #### L 100.0100, L506.0400, L500.4050, L500.4100, L501.9520 #### [facility] [address] [place], [address] Cholesterol in VLDL [Mass/Vol] 23 mg/dL Normal 5-40 [facility] Comment on above: Performed By: #### L 100.0100, L506.0400, L500.4050, L500.4100, L501.9520 #### [facility] [address] [place], [place], [address] Triglyceride [Mass/Vol] 113 mg/dL Normal [facility] Comment on above: Result Comment: The drugs N-Acetylcysteine and Metamizole may falsely depress this assay. Normal range: <150 mg/dL Borderline High: 150-199 mg/dL High: 200-499 mg/dL Very High: >500 mg/dL Performed By: #### L 100.0100, L506.0400, L500.4050, L500.4100, L501.9520 #### [facility] [address] [place], [place], [address] MCV (mean corpuscular volume ) determinationOrdered By: Matt Mendoza on 05-16-2025 MCV (RBC) [Entitic vol] 83.7 fL 81-99 [facility] Mean corpuscular hemoglobin (MCH) determinationOrdered By: Matt Menodza on 05-16-2025 MCH (RBC) [Entitic mass] 28.1 pg 27.0-32.0 [facility] Mean corpuscular hemoglobin concentration (MCHC) determinationOrdered By: Matt Mendoza on 05-16-2025 MCHC (RBC) [Mass/Vol] 33.6 g/dL 32-36 [facility] Mean platelet volume determi nationOrdered By: Matt Mendoza on 05-16-2025 Platelet mean volume (Bld) [Entitic vol] 11.6 fL 6.2-12.0 [facility] Monocyte percentageOrdered B y: Efabdoulayeongkimberly Mendoza on 05-16-2025 Monocytes/100 WBC (Bld) 5.2 % 0-10 [facility] Neutrophil percentageOrdered By: Efrorybe Reji on 05-16-2025 Neutrophils/100 WBC (Bld) 52.9 % 47-70 [facility] Nucleated red blood cell per centageOrdered By: Matt Mendoza on 05-16-2025 Nucleated RBC/100 WBC (Bld) [Ratio] 0 % 0-5 [facility] Platelet countOrdered By: Amrik Mendoza on 05-16-2025 Platelets (Bld) [#/Vol] 257 10*3/uL 150-450 [facility] Potassium measurement (mass/ volume)Ordered By: Matt Mendoza on 05-16-2025 Potassium (Unsp spec) [Mass/Vol] 3.7 mmol/L 3.3-5.1 [facility] RBC Auto (Bld) [#/Vol]Ordere d By: Matt Mendoza on 05-16-2025 RBC (Bld) [#/Vol] 4.73 10*6/uL 4.2-5.4 [facility] Screening total cholesterol/ high density lipoprotein (HDL) cholesterol ratioOrdered By: Matt Mendoza on 05-16-2025 Cholesterol.total/Chol esterol in HDL [Mass ratio] 3.58 {ratio} [facility] Serum creatinine measurement (mass/volume)Ordered By: Matt Mendoza on 05-16-2025 Creatinine [Mass/Vol] 0.93 mg/dL 0.70-1.20 [facility] Serum globulin measurementOr dered By: Matt Mendoza on 05-16-2025 Globulin (S) [Mass/Vol] 2.8 g/dL 2.2-4.2 [facility] Serum glucose measurement (m ass/volume)Ordered By: Matt Mendoza on 05-16-2025 Glucose [Mass/Vol] 91 mg/dL 70-99 [facility] Serum or plasma alanine noland otransferase (ALT) measurementOrdered By: Matt Mendoza on 05-16-2025 ALT [Catalytic activity/Vol] 25 U/L <35 [facility] Serum or plasma albumin aster urement (mass/volume)Ordered By: Matt Mendoza on 05-16-2025 Albumin [Mass/Vol] 4.3 g/dL 3.5-5.0 [facility] Serum or plasma albumin/glob ulin mass ratioOrdered By: Matt Mendoza on 05-16-2025 Albumin/Globulin [Mass ratio] 1.5 {ratio} 0.9-2.4 [facility] Serum or plasma alkaline phi sphatase measurementOrdered By: Matt Mendoza on 05-16-2025 ALP [Catalytic activity/Vol] 43 U/L 35-104 [facility] Serum or plasma calcium aster urement (mass/volume)Ordered By: Matt Mendoza on 05-16-2025 Calcium [Mass/Vol] 9.4 mg/dL 7.6-11.0 [facility] Serum or plasma cholesterol in HDL measurement (mass/volume)Ordered By: Matt Mendoza on 05-16-2025 Cholesterol in HDL [Mass/Vol] 41 mg/dL >40 [facility] Comment on above: National Cholesterol Education Program (NCEP) guidelines:<40 mg/dL: Low HDL-cholesterol (major risk factor for CHD)>= 60 mg/dL: High HDL-cholesterol (negative risk factor for CHD)HDL-cholesterol is affected by a number of factors, e.g. smoking, exercise, hormones, sex and age. Serum or plasma cholesterol measurement (mass/volume)Ordered By: Matt Mendoza on 05-16-2025 Cholesterol [Mass/Vol] 148 mg/dL <201 [facility] Comment on above: Cholesterol level, D esirable <200 mg/dLBorderline high cholesterol 200-239 mg/dLHigh cholesterol >=240 mg/dLRecommendations of the NCEP Adult Treatment Panel for the following risk-cutoff thresholds for the [place] population. Serum or plasma urea nitroge n measurement (mass/volume)Ordered By: Matt Mendoza 05-16-2025 Urea nitrogen [Mass/Vol] 11 mg/dL 4-19 [facility] Sodium levelOrdered By: Kaity ruizgonsalo Reji on 05-16-2025 Sodium [Moles/Vol] 144 mmol/L 133-145 [facility] Total proteinOrdered By: Lane Mendoza on 05-16-2025 Protein [Mass/Vol] 7.2 g/dL 5.9-8.4 [facility] Triglycerides measurementOrd ered By: Matt Mendoza on 05-16-2025 Triglyceride [Mass/Vol] 113 mg/dL <199 [facility] Comment on above: The drugs N-Acetylcy steine and Metamizole may falsely depress this assay. Normal range: <150 mg/dLBorderline High: 150-199 mg/dLHigh: 200-499 mg/dLVery High: >500 mg/dL Vitamin D,25 Hydroxyon 05-16 Vitamin D 25-OH 31.1 ng/mL Normal 30-100 [facility] Comment on above: Result Comment: Cheryl min D Status Deficiency: <20 ng/mL (50nmol/L) Insufficiency: 20-30 ng/mL (50-75 nmol/L) Sufficiency: 30-100 ng/mL (75-250 nmol/L) Toxicity: >100 ng/mL (>250 nmol/L) Performed By: #### L 100.0100, L506.0400, L500.4050, L500.4100, L501.9520 #### [facility] [address] [place], [address] White blood cell (WBC) count Ordered By: Matt Mendoza on 05-16-2025 WBC (Bld) [#/Vol] 7.8 10*3/uL 4.4-11.0 [facility] CNOVon 03-11-2025 CNOV Office Visit (UCWSTR ) ALEYDA MEJÍA ([id number]) 2000 F Date Time Provider Department 03/11/25 11:15 AM ZACARIAS BRIGGS [facility] During your visit today, we recorded the following information about you: Temperature Pulse Respiration Blood pressure 97.4 degrees 96/minute 16/minute 122/80 Weight 138.4 kg Zacarias Briggs PA 03/11/2025 11:32 AM Signed [facility] Subjective Aleyda Mejía is a 25 year old female. Patient presents with: Head Congestion: chest congestion, cough and headache x 10 days HPI 25-year-old female presents for cough, chest congestion, nasal congestion, headache x 10 days. 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 Patient has productive cough, nasal congestion, sinus pressure, sinus pain. She denies any chest pain or shortness of breath. She denies any fevers. Has taken ibuprofen and Tylenol for symptoms. No other complaint. PAST MEDICAL HISTORY Diagnosis Date Anemia Asthma C. difficile diarrhea COVID-19 08/03/2021 on ventilator 40 days Depression DVT (deep venous thrombosis) (HCC) right knee-during Covid hospitalization Eczema History of DVT (deep vein thrombosis) 03/11/2022 03/15/22 No indication for lovenox in . Will consider lovenox for 6 weeks . SW 03/11/2022 She states that she developed a blood clot under her right knee due to COVID and was treated at the [facility]. States she has been off Eliquis since December. TKRN Scarring of lung Covid related Tachycardia, unspecified post covid PAST SURGICAL HISTORY Procedure Laterality Date SECTION HX 10/01/2022 CHEST TUBES-SPECIFY covid treatment PAST SURGICAL HISTORY OF wisdom teeth TRACHEOSTOMY PLANNED SEPARATE PROCEDURE during Covid ventilator ALLERGIES Alcohol MEDICATIONS amoxicillin-clavulanate potassium (AUGMENTIN) 875-125 mg per tablet Take 1 tablet by mouth two times a day for 7 days. benzonatate (TESSALON PERLE) 100 mg capsule Take 1 capsule by mouth three times a day as needed. SYMBICORT 160-4.5 mcg/actuation inhaler Inhale 2 Puffs as instructed two times a day. Uses as needed (Patient not taking: Reported on 03/11/2025) etonogestrel (NEXPLANON) subdermal implant 68 mg 1 Each by SUBDERMAL route as directed. ALBUTEROL INHALATION Inhale as instructed. FAMILY HISTORY Problem Relation Age of Onset Diabetes Mother Hypertension Father No Known Problems Sister No Known Problems Brother No Known Problems Brother Leukemia Maternal Grandmother Heart Maternal Grandmother Suicide / Suicidal Behaviors Maternal Grandfather No Known Problems Paternal Grandmother No Known Problems Paternal Grandfather Social History Tobacco Use Smoking status: Never Smokeless tobacco: Never Vaping Use Vaping status: Never Used Substance Use Topics Alcohol use: Not Currently Drug use: Not Currently Types: Marijuana Review of Systems Constitutional: Negative for chills and fever. HENT: Positive for congestion, sinus pressure and sinus pain. Negative for ear pain and sore throat. Respiratory: Positive for cough. Negative for shortness of breath. Cardiovascular: Negative for chest pain. Gastrointestinal: Negative for diarrhea and vomiting. Neurological: Positive for headaches. Objective BP 122/80 Pulse 96 Temp 36.3 ?C (97.4 ?F) Resp 16 Wt (!) 138.4 kg (305 lb 1.9 oz) LMP 05/08/2024 (Approximate) SpO2 97% BMI 42.72 kg/m? Physical Exam Vitals and nursing note reviewed. Constitutional: General: She is not in acute distress. Appearance: Normal appearance. She is not toxic-appearing. HENT: Right Ear: Tympanic membrane and ear canal normal. Left Ear: Tympanic membrane and ear canal normal. Nose: Mucosal edema and congestion present. Right Sinus: Frontal sinus tenderness present. No maxillary sinus tenderness. Left Sinus: Frontal sinus tenderness present. No maxillary sinus tenderness. Mouth/Throat: Mouth: Mucous membranes are moist. Cardiovascular: Rate and Rhythm: Normal rate and regular rhythm. Pulmonary: Effort: Pulmonary effort is normal. Breath sounds: Normal breath sounds. Skin: General: Skin is warm and dry. Neurological: Mental Status: She is alert. {ASSESSMENT/PLAN: 1. Bacterial sinusitis - ICD9: 473.9, 041.9, ICD10: J32.9, B96.89 - Will begin treatment with Augmentin 875 mg PO BID for 7 days -Rx Tessalon Perle - The patient should also be given OTC decongestants prn for the first 5-7 days of treatment. - Supportive care with plenty of fluids, rest, and analgesia prn. Diagnosis and treatment plan were discussed and questions were answered to the patient's satisfaction. Pt acknowledged understanding of concepts and follow up plan. Specific signs and symptoms that would indicate the need for higher level of care we (more content not included)... Normal [facility] Metabolic Prof ilon 11-15-2024 Albumin [Mass/Vol] 3.9 g/dL Normal 3.2-5.0 [facility] Comment on above: Performed By: #### L [id number] #### [facility] [address] [place], [address] Albumin/Globulin [Mass ratio] 1.1 {ratio} Normal 0.9-2.4 [facility] Comment on above: Performed By: #### L [id number] #### [facility] [address] [place], [address] ALK P 50 U/L Normal 45-117 [facility] Comment on above: Performed By: #### L [id number] #### [facility] [address] [place], [address] ALT [Catalytic activity/Vol] 26 U/L Normal 13-56 [facility] Comment on above: Performed By: #### [id number] #### [facility] [address] [place], [address] AST [Catalytic activity/Vol] 7 U/L Low 15-37 [facility] Comment on above: Performed By: #### L [id number] #### [facility] [address] [place], [address] Bilirubin [Mass/Vol] 1.00 mg/dL Normal 0.20-1.00 [facility] Comment on above: Result Comment: For patients on eltrombopag therapy, use of Dimension [place] TBIL is not recommended. Performed By: #### L [id number] #### [facility] [address] [place], [address] BUN/CRE 12.1 RATIO Normal 10-20 [facility] Comment on above: Performed By: #### L [id number] #### [facility] [address] [place], [address] CA,Total 9.5 mg/dL Normal 8.5-10.1 [facility] Comment on above: Performed By: #### [id number] #### [facility] [address] [place], [address] Chloride [Moles/Vol] 107 mmol/L Normal 98-107 [facility] Comment on above: Performed By: #### L [id number] #### [facility] [address] [place], [address] CO2 [Moles/Vol] 30.0 mmol/L Normal 21.0-32.0 [facility] Comment on above: Performed By: #### L [id number] #### [facility] [address] [place], [address] Creatinine [Mass/Vol] 0.91 mg/dL Normal 0.55-1.02 [facility] Comment on above: Result Comment: The validity of the calculated GFR GFRAA in patients over 70 years has not been determined. Clinical correlation is essential. Performed By: #### L [id number] #### [facility] [address] [place], [address] EST GFR - AA 96 mL/min Normal >60 [facility] Comment on above: Result Comment: Afri can [place] GFR Calc Performed By: #### L [id number] #### [facility] [address] [place], [address] GAP 5 Normal 5-15 [facility] Comment on above: Performed By: #### L [id number] #### [facility] [address] [place], [address] GFR/1.73 sq M.predicted among non-blacks MDRD (S/P/Bld) [Vol rate/Area] 79 mL/min/{1.73_m2} Normal >60 [facility] Comment on above: Result Comment: Non- GFR Calc Performed By: #### L [id number] #### [facility] [address] [place], [address] Globulin (S) [Mass/Vol] 3.6 g/dL Normal 2.2-4.2 [facility] Comment on above: Performed By: #### L [id number] #### [facility] [address] [place], [address] Glucose [Mass/Vol] 81 mg/dL Normal 74-106 [facility] Comment on above: Performed By: #### L [id number] #### [facility] [address] [place], [address] Potassium [Moles/Vol] 5.0 mmol/L Normal 3.5-5.1 [facility] Comment on above: Performed By: #### L [id number] #### [facility] [address] [place], [address] Sodium [Moles/Vol] 142 mmol/L Normal 136-145 [facility] Comment on above: Performed By: #### L [id number] #### [facility] [address] [place], [address] T PROT 7.5 g/dL Normal 6.4-8.2 [facility] Comment on above: Performed By: #### L [id number] #### [facility] [address] [place], [address] Urea nitrogen [Mass/Vol] 11 mg/dL Normal 7-18 [facility] Comment on above: Performed By: #### L [id number] #### [facility] [address] [place], [address] Internal Medicine Office Vis iton 11-15-2024 Internal Medicine Office Visit [facility] [address] [place] [address] OFFICE VISIT Date of Service: 11/15/24 MR#: [id number] Acct: [id number] Name: ALEYDA MEJÍA Rep #: [id number] : 2000 Provider: Dr. Matt pimentel MD Age/Sex: 24/F Location: [facility] Status: Signed Intake Vital Signs 05/17/24 17:50 11/15/24 14:20 Height 5 ft 11 in 5 ft 11 in Weight: 324 lb 303 lb BMI 45.1 42.3 BP 116/72 122/72 H Blood Pressure Location Lt brachial Lt brachial Position Sitting Sitting Respiration 18 16 Pulse 77 88 Pulse Source Monitor Monitor Temp 97.6 F L 97.6 F L Temp Source Temporal Temporal Pulse Oximetry (%) 95 99 Oxygen Delivery Method room air room air Intake Visit Reasons: 6 M FU Chief Complaint: FU Chronic Conditions. Blurry Vision Medical Record Administrator Required: No Accompanied by: Self Is patient in pain?: No Allergies No Known Allergies Allergy (Verified 11/15/24 14:17) Medications ???Medication ???Instructions ???Recorded ???Confirmed ???Type albuterol sulfate 90 mcg/actuation 2 puff inhalation Q4H PRN 03/07/23 11/15/24 Rx aerosol inhaler shortness of breath or wheezing #8.5 grams budesonide-formoterol HFA 160 2 puff inhalation BID #10.2 grams 03/07/23 11/15/24 Rx mcg-4.5 mcg/actuation aerosol inhaler (Symbicort) cholecalciferol (vitamin D3) 25 25 mcg PO DAILY 03/07/23 11/15/24 History mcg (1,000 unit) capsule ondansetron 4 mg disintegrating 4 mg PO Q8H PRN PRN Nausea #10 tabs 04/23/23 11/15/24 Rx tablet albuterol sulfate 0.63 mg/3 mL 0.63 mg (3 mL) inhalation Q4H PRN 01/01/24 11/15/24 Rx solution for nebulization shortness of breath or wheezing #90 mL PFSH Medical History (Updated 11/15/24 @ 14:[address] Matt Mendoza MD) Blurry vision Elevated bilirubin Preventative health care Screening for thyroid disorder School physical exam Screening-pulmonary TB Hypokalemia URI (upper respiratory infection) Post depression Fatigue Hx of Clostridium difficile infection Depression Anxiety Alcohol use Anemia DVT (deep venous thrombosis) Restless leg Back pain Ventilator associated pneumonia Heartburn during Nonsmoker On home oxygen therapy Edema COVID Cough Sore throat Tonsillar enlargement 16 weeks gestation of Dermatitis Sprain and strain of temporomandibular joint Acute respiratory failure due to COVID-19 History of pneumothorax Recurrent pneumothorax after chest tube removed History of COVID-19 Hx of recurrent urinary tract infection Cranial neuropathy Ophthalmoplegia of right eye Exotropia History of malnutrition C. difficile enteritis Obesity Anemia DVT (deep venous thrombosis) Surgical History History of placement of chest tube History of tracheostomy Family History Mother Diabetes Grandmother Hypertension Leukemia Social History adopted: No household members: significant other housing: house number of children: 0 current occupational status: unemployed history of recent travel: No Smoking Status: Never smoker alcohol intake: former details: rare ETOH prior to COVID infection in July 2021. None currently substance use type: does not use HPI HPI Chief Complaint: FU Chronic Conditions. Blurry Vision Details: ALEYDA MEJÍA, is a 24 F who presents to the office today for follow-up of her chronic conditions. Also has some concerns. She states that for a while now, she has had intermittent episodes of blurry vision. Typically happens when she is staring intensely at an object. Brief and improves however recently during 1 such episode which happens once or twice a month, her blood pressure was checked and was found to be high. Blood pressure at that time was 140/98 but repeat after 10 minutes came down to 101/72 mmHg. She states that at other times, her blood pressure had always been okay. No blurring of her vision otherwise, nausea, vomiting, headache or feeling of unwell. Also does not report palpitations. Other chronic medical conditions are stable. 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 No recent exacerbations or concerns. Has a visit with pulmonary in December. Still doing well without venlafaxine, no significant anxiety or depression reported. ROS Const Constitutional: No body ache, chills, excessive sweating, fatigue, fever(s), frequent falls, headache(s), snoring, weakness, weight change or change in appetite Eyes Eyes: No blurry vision, change in vision, floaters, visual disturbances, eye pain or Light sensitivity ENT ENT: No abnormal hearing, ear or mastoid pain, tinnitus, balance problems, noseb (more content not included)... Normal [facility] CNOVon 11-05-2024 CNOV Office Visit ([facility] ) HALALEYDA THOMPSON ([id number]) 2000 F Date Time Provider Department 11/05/24 2:30 PM VICENTE RIVERA [facility] During your visit today, we recorded the following information about you: Temperature Pulse Respiration Blood pressure 97.6 degrees 105/minute 18/minute 110/78 Weight 135.3 kg Vicente Rivera, ERICKA.SUG[employer] REPROCESS OPERATOR HEAD 11/05/2024 2:48 PM Signed Subjective HPI Nontoxic-appearing female presents urgent care chief complaint nausea vomiting diarrhea. States his symptoms have improved. They were most prominent yesterday. Presents today with slight nasal drainage and cough. States symptoms are improving. Requesting letter for work due to missed work today today. OTC medications none. Denies any chest pain shortness of breath or pleuritic pain. No blood in vomit or stool. Denies chance of . Is not breast-feeding. Past medical history prescription medications allergies reviewed. .Patient presents with: Cough: Cough, congestion, ST, diarrhea and vomiting x 1 day PAST MEDICAL HISTORY Diagnosis Date Anemia Asthma C. difficile diarrhea COVID-19 08/03/2021 on ventilator 40 days Depression DVT (deep venous thrombosis) (HCC) right knee-during Covid hospitalization Eczema History of DVT (deep vein thrombosis) 03/11/2022 03/15/22 No indication for lovenox in . Will consider lovenox for 6 weeks . SW 03/11/2022 She states that she developed a blood clot under her right knee due to COVID and was treated at the [facility]. States she has been off Eliquis since December. TKRN Scarring of lung Covid related Tachycardia, unspecified post covid PAST SURGICAL HISTORY Procedure Laterality Date SECTION HX 10/01/2022 CHEST TUBES-SPECIFY covid treatment PAST SURGICAL HISTORY OF wisdom teeth TRACHEOSTOMY PLANNED SEPARATE PROCEDURE during Covid ventilator ALLERGIES Alcohol MEDICATIONS SYMBICORT 160-4.5 mcg/actuation inhaler Inhale 2 Puffs as instructed two times a day. Uses as needed etonogestrel (NEXPLANON) subdermal implant 68 mg 1 Each by SUBDERMAL route as directed. ALBUTEROL INHALATION Inhale as instructed. FAMILY HISTORY Problem Relation Age of Onset Diabetes Mother Hypertension Father No Known Problems Sister No Known Problems Brother No Known Problems Brother Leukemia Maternal Grandmother Heart Maternal Grandmother Suicide / Suicidal Behaviors Maternal Grandfather No Known Problems Paternal Grandmother No Known Problems Paternal Grandfather Social History Tobacco Use Smoking status: Never Smokeless tobacco: Never Vaping Use Vaping status: Never Used Substance Use Topics Alcohol use: Not Currently Drug use: Not Currently Types: Marijuana BP 110/78 Pulse 105 Temp 36.4 ?C (97.6 ?F) (Tympanic) Resp 18 Wt 135.3 kg (298 lb 4.5 oz) LMP 05/08/2024 (Approximate) SpO2 96% BMI 41.76 kg/m? Review of Systems Constitutional: Negative for chills, fever and malaise/fatigue. HENT: Positive for congestion. Negative for ear discharge, ear pain, sinus pain and sore throat. Eyes: Negative for blurred vision, pain, discharge and redness. Respiratory: Positive for cough. Negative for hemoptysis, sputum production, shortness of breath, wheezing and stridor. Cardiovascular: Negative for chest pain. Gastrointestinal: Positive for diarrhea, nausea and vomiting. Negative for abdominal pain. Musculoskeletal: Negative for myalgias. Skin: Negative for itching and rash. Neurological: Negative for dizziness and headaches. Objective Physical Exam Constitutional: General: She is not in acute distress. Appearance: She is not diaphoretic. HENT: Head: Normocephalic. Jaw: No trismus, tenderness, swelling or pain on movement. Nose: Congestion present. Mouth/Throat: Mouth: Mucous membranes are moist. Pharynx: Oropharynx is clear. Uvula midline. No pharyngeal swelling, oropharyngeal exudate, posterior oropharyngeal erythema or uvula swelling. Eyes: Conjunctiva/sclera: Conjunctivae normal. Pupils: Pupils are equal, round, and reactive to light. Cardiovascular: Rate and Rhythm: Normal rate and regular rhythm. Heart sounds: Normal heart sounds. Pulmonary: Effort: Pulmonary effort is normal. No tachypnea, accessory muscle usage or respiratory distress. Breath sounds: Normal breath sounds. No stridor. No wheezing, rhonchi or rales. Abdominal: General: There is no distension. Palpations: Abdomen is soft. Tenderness: There is no abdominal tenderness. There is no guarding or rebound. Musculoskeletal: Cervical back: Normal range of motion and neck supple. No edema, erythema, rigidity or tenderness. No pain with movement. Normal range of motion. Lymphadenopathy: Cervical: No cervical adenopathy. Skin: General: Skin is warm and dry. Neurological: Mental Status: She is barbara (more content not included)... Normal [facility] Pel[facility]ison 06-08-2024 Indication AUB Impression The uterus is anteverted and measures 86 mm x 39 mm x 50 mm. The endometrial thickness is 3.9 mm. The right ovary measures 29 mm x 18 mm x 21 mm. The left ovary measures 31 mm x 26 mm x 26 mm. There is no free fluid visualized. Recommendations Normal pelvic ultrasound. Method Transabdominal and transvaginal ultrasound examination, 3D ultrasound examination, Color Doppler examination. View: Adequate visualization Uterus Uterus: Visualized Uterus position: anteverted Description of uterine malformations: normally shaped Myometrium: normal Endometrium: endometrial midline: linear Cervix details: fluid filled Uterus length 86 mm Uterus width 50 mm Uterus height 39 mm Uterus Vol 88.3 cm Endometrial thickness, total 3.9 mm Fibroids: No fibroids identified Polyps: No polyps identified Right Ovary Rt ovary: Visualized Outline: smooth Rt ovary morphology: premenopausal normal follicular Rt ovary D1 29 mm Rt ovary D2 18 mm Rt ovary D3 21 mm Rt ovary Vol 5.5 cm Rt ovarian cyst(s): No cysts identified Left Ovary Lt ovary: Visualized Outline: smooth Lt ovary morphology: premenopausal normal follicular Lt ovary D1 31 mm Lt ovary D2 26 mm Lt ovary D3 26 mm Lt ovary Vol 11.0 cm Lt ovarian cyst(s): No cysts identified [place] no free fluid visualized Performed By: Rosaura Cui RDMS Read By: Sera Lamas M.D. MATERNAL MEDICINE [facility] US Pelvison 06-07-2024 Radiology Study observation (narrative) [facility] Bilirubin,Total Dir,[place] Bilirubin [Mass/Vol] 1.80 mg/dL High 0.20-1.00 [facility] Comment on above: Result Comment: For patients on eltrombopag therapy, use of Dimension [place] TBIL is not recommended. Performed By: #### L 501.0000 #### [facility] [address] [place], [address] Bilirubin.direct [Mass/Vol] 0.37 mg/dL High 0.00-0.30 [facility] Comment on above: Performed By: #### L 501.0000 #### [facility] [address] [place], [address] I BILI 1.40 mg/dL High 0.00-1.00 [facility] Comment on above: Performed By: #### L 501.0000 #### [facility] [address] [place], [address] CBC W/Diff, Automatedon 07 Absolute Lymph 2.63 X10 3/uL Normal 0.83-4.51 [facility] Comment on above: Performed By: #### L 100.0100, L506.0400, L500.4050, L500.4100, L501.9520 #### [facility] [address] [place], [address] Absolute Neut 4.3 X10 3/uL Normal 2.0-7.7 [facility] Comment on above: Performed By: #### L 100.0100, L506.0400, L500.4050, L500.4100, [id number] #### [facility] [address] [place], [address] Basophils/100 WBC (Bld) 0.6 % Normal 0-1 [facility] Comment on above: Performed By: #### L 100.0100, [id number], L500.4050, L500.4100, [id number] #### [facility] [address] [place], [address] Eosinophils/100 WBC (Bld) 3.5 % Normal 0-5 [facility] Comment on above: Performed By: #### L 100.0100, [id number], L500.4050, L500.4100, [id number] #### [facility] [address] [place], [address] Erythrocyte distribution width (RBC) [Ratio] 12.7 % Normal 11.6-14.6 [facility] Comment on above: Performed By: #### L 100.0100, L506.0400, L500.4050, L500.4100, [id number] #### [facility] [address] [place], [address] Hematocrit (Bld) [Volume fraction] 45.2 % Normal 37-47 [facility] Comment on above: Performed By: #### L 100.0100, L506.0400, L500.4050, L500.4100, [id number] #### [facility] [address] [place], [address] Hemoglobin (Bld) [Mass/Vol] 14.7 g/dL Normal 12.0-15.0 [facility] Comment on above: Performed By: #### L 100.0100, L506.0400, L500.4050, L500.4100, [id number] #### [facility] [address] [place], [address] IG% 0.100 Normal 0.0-0.9 [facility] Comment on above: Result Comment: IG% - Immature Granulocytes (promyelocytes, myelocytes and metamyelocytes) > 1% indicates that a LEFT SHIFT is Present. Performed By: #### L 100.0100, L506.0400, L500.4050, L500.4100, [id number] #### [facility] [address] [place], [address] Lymphocytes/100 WBC (Bld) 33.8 % Normal 19-41 [facility] Comment on above: Performed By: #### L 100.0100, [id number], L500.4050, L500.4100, [id number] #### [facility] [address] [place], [address] MCH (RBC) [Entitic mass] 27.5 pg Normal 27.0-32.0 [facility] Comment on above: Performed By: #### L 100.0100, [id number], L500.4050, L500.4100, [id number] #### [facility] [address] [place], [address] MCHC (RBC) [Mass/Vol] 32.5 g/dL Normal 32-36 [facility] Comment on above: Performed By: #### L 100.0100, [id number], L500.4050, L500.4100, [id number] #### [facility] [address] [place], [address] MCV (RBC) [Entitic vol] 84.6 fL Normal 81-99 [facility] Comment on above: Performed By: #### L 100.0100, [id number], [id number], L500.4100, [id number] #### [facility] [address] [place], [address] Monocytes/100 WBC (Bld) 6.6 % Normal 0-10 [facility] Comment on above: Performed By: #### L 100.0100, [id number], L500.4050, L500.4100, [id number] #### [facility] [address] [place], [address] Neutrophils/100 WBC (Bld) 55.4 % Normal 47-70 [facility] Comment on above: Performed By: #### L 100.0100, L506.0400, L500.4050, L500.4100, L501.9520 #### [facility] [address] [place], [address] Nucleated RBC (Bld) [#/Vol] 0 10*3/uL Normal 0-5 [facility] Comment on above: Performed By: #### L 100.0100, L506.0400, L500.4050, L500.4100, L501.9520 #### [facility] [address] [place], [address] Platelet mean volume (Bld) [Entitic vol] 11.8 fL Normal 6.2-12.0 [facility] Comment on above: Performed By: #### L 100.0100, L506.0400, L500.4050, L500.4100, L501.9520 #### [facility] [address] [place], [address] Platelets (Bld) [#/Vol] 228 10*3/uL Normal 150-450 [facility] Comment on above: Performed By: #### L 100.0100, L506.0400, L500.4050, L500.4100, L501.9520 #### [facility] [address] [place], [address] RBC (Bld) [#/Vol] 5.34 10*6/uL Normal 4.2-5.4 [facility] Comment on above: Performed By: #### L 100.0100, L506.0400, L500.4050, L500.4100, L501.9520 #### [facility] [address] [place], [address] RDW SD 38.8 fl Normal 35.1-43.9 [facility] Comment on above: Performed By: #### L 100.0100, L506.0400, L500.4050, L500.4100, L501.9520 #### [facility] [address] [place], [address] WBC (Bld) [#/Vol] 7.8 10*3/uL Normal 4.4-11.0 [facility] Comment on above: Performed By: #### L 100.0100, L506.0400, L500.4050, L500.4100, L501.9520 #### [facility] [address] [place], [address] Comprehensive Metabolic [facility] 05-23-2024 Albumin [Mass/Vol] 3.6 g/dL Normal 3.2-5.0 [facility] Comment on above: Performed By: #### L 100.0100, L506.0400, L500.4050, L500.4100, L501.9520 #### [facility] [address] [place], [address] Albumin/Globulin [Mass ratio] 1.0 {ratio} Normal 0.9-2.4 [facility] Comment on above: Performed By: #### L 100.0100, L506.0400, L500.4050, L500.4100, L501.9520 #### [facility] [address] [place], [address] ALK P 49 U/L Normal 45-117 [facility] Comment on above: Performed By: #### L 100.0100, L506.0400, L500.4050, L500.4100, L501.9520 #### [facility] [address] [place], [address] ALT [Catalytic activity/Vol] 38 U/L Normal 13-56 [facility] Comment on above: Performed By: #### L 100.0100, L506.0400, L500.4050, L500.4100, L501.9520 #### [facility] [address] [place], [address] AST [Catalytic activity/Vol] 26 U/L Normal 15-37 [facility] Comment on above: Performed By: #### L 100.0100, L506.0400, L500.4050, L500.4100, L501.9520 #### [facility] [address] [place], [address] Bilirubin [Mass/Vol] 1.90 mg/dL High 0.20-1.00 [facility] Comment on above: Result Comment: For patients on eltrombopag therapy, use of Dimension [place] TBIL is not recommended. Performed By: #### L 100.0100, L506.0400, L500.4050, L500.4100, L501.9520 #### [facility] [address] [place], [address] BUN/CRE 17.5 RATIO Normal 10-20 [facility] Comment on above: Performed By: #### L 100.0100, L506.0400, L500.4050, L500.4100, L501.9520 #### [facility] [address] [place], [address] CA,Total 9.2 mg/dL Normal 8.5-10.1 [facility] Comment on above: Performed By: #### L 100.0100, L506.0400, L500.4050, L500.4100, L501.9520 #### [facility] [address] [place], [address] Chloride [Moles/Vol] 110 mmol/L High 98-107 [facility] Comment on above: Performed By: #### L 100.0100, L506.0400, L500.4050, L500.4100, L501.9520 #### [facility] [address] [place], [address] CO2 [Moles/Vol] 26.0 mmol/L Normal 21.0-32.0 [facility] Comment on above: Performed By: #### L 100.0100, L506.0400, L500.4050, L500.4100, L501.9520 #### [facility] [address] [place], [address] Creatinine [Mass/Vol] 0.86 mg/dL Normal 0.55-1.02 [facility] Comment on above: Result Comment: The validity of the calculated GFR GFRAA in patients over 70 years has not been determined. Clinical correlation is essential. Performed By: #### L 100.0100, L506.0400, L500.4050, L500.4100, L501.9520 #### [facility] [address] [place], [address] EST GFR - AA 104 mL/min Normal >60 [facility] Comment on above: Result Comment: Afri can [place] GFR Calc Performed By: #### L 100.0100, L506.0400, L500.4050, L500.4100, L501.9520 #### [facility] [address] [place], [address] GAP 5 Normal 5-15 [facility] Comment on above: Performed By: #### L 100.0100, L506.0400, L500.4050, L500.4100, L501.9520 #### [facility] [address] [place], [address] GFR/1.73 sq M.predicted among non-blacks MDRD (S/P/Bld) [Vol rate/Area] 86 mL/min/{1.73_m2} Normal >60 [facility] Comment on above: Result Comment: Non- GFR Calc Performed By: #### L 100.0100, L506.0400, L500.4050, L500.4100, L501.9520 #### [facility] [address] [place], [address] Globulin (S) [Mass/Vol] 3.6 g/dL Normal 2.2-4.2 [facility] Comment on above: Performed By: #### L 100.0100, L506.0400, L500.4050, L500.4100, L501.9520 #### [facility] [address] [place], [address] Glucose [Mass/Vol] 86 mg/dL Normal 74-106 [facility] Comment on above: Performed By: #### L 100.0100, L506.0400, L500.4050, L500.4100, L501.9520 #### [facility] [address] [place], [address] Potassium [Moles/Vol] 4.3 mmol/L Normal 3.5-5.1 [facility] Comment on above: Performed By: #### L 100.0100, L506.0400, L500.4050, L500.4100, L501.9520 #### [facility] [address] [place], [address] Sodium [Moles/Vol] 141 mmol/L Normal 136-145 [facility] Comment on above: Performed By: #### L 100.0100, L506.0400, L500.4050, L500.4100, L501.9520 #### [facility] [address] [place], [address] T PROT 7.2 g/dL Normal 6.4-8.2 [facility] Comment on above: Performed By: #### L 100.0100, L506.0400, L500.4050, L500.4100, L501.9520 #### [facility] [address] [place], [address] Urea nitrogen [Mass/Vol] 15 mg/dL Normal 7-18 [facility] Comment on above: Performed By: #### L 100.0100, L506.0400, L500.4050, L500.4100, L501.9520 #### [facility] [address], [address] Lipid Profileon 05-23-2024 Cholesterol [Mass/Vol] 119 mg/dL Normal 200 [facility] Comment on above: Result Comment: <200 mg/dL Desirable 200-240 mg/dL Borderline >240 mg/dL High Risk Performed By: #### L 100.0100, L506.0400, L500.4050, L500.4100, L501.9520 #### [facility] [address] [place], [address] Cholesterol in HDL [Mass/Vol] 42 mg/dL Normal [facility] Comment on above: Result Comment: The drugs N-Acetylcysteine and Metamizole may falsely depress this assay. Reference Range HDL <40 mg/dL Low HDL Cholesterol HDL >or= 60 mg/dL High HDL Cholesterol Performed By: #### L 100.0100, L506.0400, L500.4050, L500.4100, L501.9520 #### [facility] [address] [place], [address] Cholesterol in LDL [Mass/Vol] 69 mg/dL Normal 0-130 [facility] Comment on above: Performed By: #### L 100.0100, L506.0400, L500.4050, L500.4100, L501.9520 #### [facility] [address] [place], [address] Cholesterol in VLDL [Mass/Vol] 8 mg/dL Normal 5-40 [facility] Comment on above: Performed By: #### L 100.0100, L506.0400, L500.4050, L500.4100, L501.9520 #### [facility] [address] [place], [place], [address] Triglyceride [Mass/Vol] 39 mg/dL Normal [facility] Comment on above: Result Comment: The drugs N-Acetylcysteine and Metamizole may falsely depress this assay. Serum Triglycerides Reference Interval Normal <150 mg/dL Borderline high 150 - 199 mg/dL High 200 - 499 mg/dL Very High > or = 500 mg/dL Performed By: #### L 100.0100, L506.0400, L500.4050, L500.4100, L501.9520 #### [facility] [address] [place], [place], [address] T4 Free Directon 05-23-2024 T4 FREE DIRECT 1.00 ng/dL Normal 0.76-1.46 [facility] Comment on above: Performed By: #### L 100.0100, L506.0400, L500.4050, L500.4100, L501.9520 #### [facility] [address] [place], [place], [address] Thyroid Stim Hormone (TSH)on 05-23-2024 TSH 0.74 uIU/mL Normal 0.358-3.74 [facility] Comment on above: Performed By: #### L 100.0100, L506.0400, L500.4050, L500.4100, L501.9520 #### [facility] [address] [place], [address] [facility] Tele[facility] (4CQ) ALEYDA MEJÍA ([id number]) 2000 F Date Time Provider Department 05/10/24 EDILMA SANDHU 4CQ During your visit today, we recorded the following information about you: Tori Rob 05/10/2024 2:43 PM Signed Pt wanted to schedule pelvic ultrasound. It does not look like it has been released in order to be able to schedule. Please advise. Thank you Brandee Fall RN 05/10/2024 3:11 PM Signed Order has been reinstated and assist Pt with scheduling. Thank you! MAKI Drew Heather 05/23/2024 9:28 AM Signed 1st attempt lvm for pt to schedule pelvic ultrasound BeckAlejandra 05/24/2024 8:56 AM Signed Patient called and cancelled ordered Pelvic US due to OON insurance and CCN denial. Please contact patient to advise on alternative plan of care. Edilma Sandhu APRN.RADHA 05/24/2024 9:35 AM Signed Received an email about this and looking into it. Is patient in contact with financial secretary? Edilma Sandhu APRN.Eladio Stein RN 05/24/2024 9:53 AM Signed Could she get it at a different facility that is in network if the pelvic u/s order is faxed there? MAKI Walter Emily, APRN.CNP 05/24/2024 9:56 AM Signed Yes, she can have it at another facility. Is the financial secretary assisting her? Edilma Sandhu APRN.Eladio Stein RN 05/24/2024 10:30 AM Signed Left message for patient to call office. MAKI Walter Trisha, RN 06/04/2024 3:46 PM Signed Patient is scheduled now for 06/07 [facility] pelvic u/s. Eladio García RN Allergies As of Date: 05/10/2024 Noted Allergy Reaction ALCOHOL 03/11/2022 2 - Rash Comments: When she drinks alcohol. No issues with Isopropyl alcohol on skin Date Reviewed: 04/25/2024 Reviewed by: Edilma Sandhu APRN.SUGAR REPROCESS OPERATOR HEAD - Fully Assessed Reason for Visit: Orders [881] Cmt: Pelvic US [facility] Insurance Authorization [[id number]] Cmt: ONN Insurance/CCN Denied Prescriptions as of 06/04/2024 - SYMBICORT 160-4.5 mcg/actuation inhaler Inhale 2 Puffs as instructed two times a day. Uses as needed - etonogestrel (NEXPLANON) subdermal implant 68 mg 1 Each by SUBDERMAL route as directed. - ALBUTEROL INHALATION Inhale as instructed. Problem List As Of Date 05/10/2024 Noted Resolved COVID19 with history of tracheostomy; long COVI*03/11/2022 History of tachycardia [Z87.898] 03/11/2022 12/06/2022 History of DVT (deep vein thrombosis) [Z86.718] 03/11/2022 11/19/2022 Obesity in [O99.210] 03/11/2022 10/03/2022 History of depression [Z86.59] 03/11/2022 Nausea and vomiting during [O21.9] 03/11/2022 06/01/2022 Family history of congenital heart defect [Z82.*03/11/2022 Patient request for diagnostic testing [Z01.89] 03/11/2022 06/01/2022 Abnormal glucose complicating [O99.81*07/27/2022 10/03/2022 Sinus tachycardia [R00.0] 08/06/2022 care [O09.93] 08/24/2022 10/03/2022 care following delivery [Z3*10/03/2022 11/19/2022 Obesity, Class III, BMI >= 40 [E66.01] 12/06/2022 Encounter Status:Closed by ELADIO GARCÍA on 06/04/24 Normal [facility] CNOVon 05-08-2024 CNOV Office Visit (UCWSTR ) ALEYDA MEJAÍ ([id number]) 2000 F Date Time Provider Department 05/08/24 1:15 PM DONNA MOREAU UCWSTR During your visit today, we recorded the following information about you: Temperature Pulse Respiration Blood pressure 97.6 degrees 103/minute 20/minute 131/91 Weight Last Period 147 kg 05/08/24 Donna Moreau APRN.RADHA 05/08/2024 1:34 PM Signed CC: Patient presents with: Sore Throat: X 3 days HPI: Aleyda Mejía is a 24 year old female who presents to the office with complaint of sore throat for a few days. Symptoms are staying the same. Associated symptoms includes sore throat. Denies cough, nausea, vomiting , and diarrhea. Treatments tried include nothing so far. with no relief of symptoms. Sick contacts: unknown. History of asthma, frequent episodes of bronchitis, chronic bronchitis, bronchiectasis or COPD: No Smoker: No Seasonal/environmental allergies: No The ROS is otherwise negative. The patient's pmh, medications, allergies, and past visits are reviewed. PHYSICAL EXAM: BP 131/91 Pulse 103 Temp 36.4 ?C (97.6 ?F) Resp 20 Wt (!) 147 kg (324 lb 1.2 oz) LMP 05/08/2024 (Approximate) SpO2 96% No BMI 45.37 kg/m? General appearance: alert, cooperative, pleasant, in no acute distress Head: Normocephalic Eyes: EOM's intact, conjunctiva pink and moist, no icterus, sclera white, non-injected Ears: Right ear: External ear/canal- Normal, TM - clear with good landmarks. Left ear: External ear/canal- Normal, TM - clear with good landmarks Oropharynx:moist without lesions, No erythema, exudates or tonsillar hypertrophy. Heart: Negative. RRR without obvious murmur, gallop, or rubs. No ectopy. Lungs: clear to auscultation, without rales or wheeze, good air exchange PAST MEDICAL HISTORY Diagnosis Date Anemia Asthma C. difficile diarrhea COVID-19 08/03/2021 on ventilator 40 days Depression DVT (deep venous thrombosis) (HCC) right knee-during Covid hospitalization Eczema History of DVT (deep vein thrombosis) 03/11/2022 03/15/22 No indication for lovenox in . Will consider lovenox for 6 weeks . SW 03/11/2022 She states that she developed a blood clot under her right knee due to COVID and was treated at the [facility]. States she has been off Eliquis since December. TKRN Scarring of lung Covid related Tachycardia, unspecified post covid PAST SURGICAL HISTORY Procedure Laterality Date SECTION HX 10/01/2022 CHEST TUBES-SPECIFY covid treatment PAST SURGICAL HISTORY OF wisdom teeth TRACHEOSTOMY PLANNED SEPARATE PROCEDURE during Covid ventilator ALLERGIES Alcohol MEDICATIONS SYMBICORT 160-4.5 mcg/actuation inhaler Inhale 2 Puffs as instructed two times a day. Uses as needed etonogestrel (NEXPLANON) subdermal implant 68 mg 1 Each by SUBDERMAL route as directed. ALBUTEROL INHALATION Inhale as instructed. FAMILY HISTORY Problem Relation Age of Onset Diabetes Mother Hypertension Father No Known Problems Sister No Known Problems Brother No Known Problems Brother Leukemia Maternal Grandmother Heart Maternal Grandmother Suicide / Suicidal Behaviors Maternal Grandfather No Known Problems Paternal Grandmother No Known Problems Paternal Grandfather Social History Tobacco Use Smoking status: Never Smokeless tobacco: Never Vaping Use Vaping Use: Never used Substance Use Topics Alcohol use: Not Currently Drug use: Not Currently Types: Marijuana ASSESSMENT/PLAN: 1. Sore throat - ICD9: 462, ICD10: J02.9 - STREP A MOLECULAR (POC) - neg Believed to be viral at this time no viral testing at this time. Potential red flag symptoms discussed with the patient. Reviewed appropriate action plan to take if red flag symptoms occur. Patient agreeable to treatment plan. Donna Moreau APRN.SUGAR REPROCESS OPERATOR HEAD Allergies As of Date: 05/08/2024 Noted Allergy Reaction ALCOHOL 03/11/2022 2 - Rash Comments: When she drinks alcohol. No issues with Isopropyl alcohol on skin Date Reviewed: 04/25/2024 Reviewed by: Edilma Sandhu APRN.SUGAR REPROCESS OPERATOR HEAD - Fully Assessed Reason for Visit: Sore Throat [200] Cmt: X 3 days Primary Visit Diagnosis:Sore throat [J02.9] Order(s):STREP A MOLECULAR (POC) [2840968] Order #: [id number]. #:[id number] Prescriptions as of 05/08/2024 - SYMBICORT 160-4.5 mcg/actuation inhaler Inhale 2 Puffs as instructed two times a day. Uses as needed - etonogestrel (NEXPLANON) subdermal implant 68 mg 1 Each by SUBDERMAL route as directed. - ALBUTEROL INHALATION Inhale as instructed. Problem List As Of Date 05/08/2024 Noted Resolved COVID19 with history of tracheostomy; long COVI*03/11/2022 History of tachycardia [Z87.898] 03/11/2022 12/06/2022 History of DVT (deep vein thrombosis) [Z86.718] 03/11/2022 11/19/2022 Obesity in [O99 (more content not included)... Normal [facility] STREP A MOLECULAR (POC)on Procedural Control Valid [facility] Strep A (POCT) Negative Negative [facility] RADHANon 04-26-2024 RADHAN Telephone (OBGYWM) KYMALEYDA ([id number]) 2000 F Date Time Provider Department 04/26/24 EDILMA SANDHU During your visit today, we recorded the following information about you: Allergies As of Date: 04/26/2024 Noted Allergy Reaction ALCOHOL 03/11/2022 2 - Rash Comments: When she drinks alcohol. No issues with Isopropyl alcohol on skin Date Reviewed: 04/25/2024 Reviewed by: Edilma Sandhu APRN.SUGAR REPROCESS OPERATOR HEAD - Fully Assessed Reason for Visit: Results [95] Prescriptions as of 05/02/2024 - SYMBICORT 160-4.5 mcg/actuation inhaler Inhale 2 Puffs as instructed two times a day. Uses as needed - etonogestrel (NEXPLANON) subdermal implant 68 mg 1 Each by SUBDERMAL route as directed. - ALBUTEROL INHALATION Inhale as instructed. Problem List As Of Date 04/26/2024 Noted Resolved COVID19 with history of tracheostomy; long COVI*03/11/2022 History of tachycardia [Z87.898] 03/11/2022 12/06/2022 History of DVT (deep vein thrombosis) [Z86.718] 03/11/2022 11/19/2022 Obesity in [O99.210] 03/11/2022 10/03/2022 History of depression [Z86.59] 03/11/2022 Nausea and vomiting during [O21.9] 03/11/2022 06/01/2022 Family history of congenital heart defect [Z82.*03/11/2022 Patient request for diagnostic testing [Z01.89] 03/11/2022 06/01/2022 Abnormal glucose complicating [O99.81*07/27/2022 10/03/2022 Sinus tachycardia [R00.0] 08/06/2022 care [O09.93] 08/24/2022 10/03/2022 care following delivery [Z3*10/03/2022 11/19/2022 Obesity, Class III, BMI >= 40 [E66.01] 12/06/2022 Encounter Status:Closed by EDILMA SANDHU on 05/02/24 Normal [facility] BACTERIAL VAGINOSIS NAATon 0 04-25-2024 Lactobacillus crispatus+gasseri+garett enii + Gardnerella vaginalis + Atopobium vaginae rRNA GIRISH+probe Ql (Vag fld) Negative Normal Negative for bacterial vaginosis [facility] Comment on above: Order Comment: Speci men Type: SWABOrdering Facility: [facility] Address: [address] [place] [address] Performed By: #### B VAMP, CVTV ####[facility] LABCLIA [id number] [facility] [id number] [address] [place] C. trachomatis+N. gonorrhoea e DNA GIRISH+probe Ql (Unsp spec)on 04-25-2024 C. trachomatis rRNA GIRISH+probe Ql (Unsp spec) Negative Normal Negative for Chlamydia trachomatis by amplificaton [facility] Comment on above: Order Comment: Speci men Type: SWABOrdering Facility: [facility] Address: [address] [place] [address] Performed By: #### 3 6902-5 ####[facility] LABCLIA [id number] [place] [address] [place] N. gonorrhoeae rRNA GIRISH+probe Ql (Unsp spec) Negative Normal Negative for Neisseria gonorrhoeae by amplification [facility] Comment on above: Order Comment: Speci men Type: SWABOrdering Facility: [facility] Address: [address] [place] [address] Performed By: #### 3 6902-5 ####[facility] LABCLIA [id number] [place] [address] [place] NINI/TRICHOMONAS NAATon 0 04-25-2024 C. glabrata RNA GIRISH+probe Ql (Vag fld) Negative Normal Negative for Nini glabrata [facility] Comment on above: Order Comment: Speci men Type: SWABOrdering Facility: [facility] Address: [address] [place] [address] Performed By: #### B VAMP, CVTV ####[facility] LABCLIA [id number] [place] [address] [place] Nini sp DNA GIRISH+probe Ql (Vag fld) Negative Normal Negative for Nini species [facility] Comment on above: Order Comment: Speci men Type: SWABOrdering Facility: [facility] Address: [address] [place] [address] Performed By: #### B VAMP, CVTV ####[facility] LABCLIA [id number] [place] [address] [place] T. vaginalis DNA GIRISH+probe Ql (Unsp spec) Negative Normal Negative for Trichomonas vaginalis by amplification [facility] Comment on above: Order Comment: Speci men Type: SWABOrdering Facility: [facility] Address: [address] [place] [address] Performed By: #### B VAMP, CVTV ####[facility] LABCLIA [id number] [place] [address] [place] CBC panel Auto (Bld)on 04-25 Erythrocyte distribution width (RBC) [Ratio] 12.4 % 11.5 - 15.0 % [facility] Hematocrit (Bld) [Volume fraction] 46.8 % High 36.0 - 46.0 % [facility] Hemoglobin (Bld) [Mass/Vol] 15.6 g/dL High 11.5 - 15.5 g/dL [facility] Interpretation and review of laboratory results Abnormal [facility] MCH (RBC) [Entitic mass] 28.0 pg 26.0 - 34.0 pg [facility] MCHC (RBC) [Mass/Vol] 33.3 g/dL 30.5 - 36.0 g/dL [facility] MCV (RBC) [Entitic vol] 83.9 fL 80.0 - 100.0 fL [facility] Nucleated RBC (Bld) [#/Vol] NINF [facility] Platelet mean volume (Bld) [Entitic vol] 11.2 fL 9.0 - 12.7 fL [facility] Platelets (Bld) [#/Vol] 227 10*3/uL [facility] RBC (Bld) [#/Vol] 5.58 10*6/uL High 3.90 - 5.2 0 m/uL [facility] WBC (Bld) [#/Vol] 5.75 10*3/uL [facility] Erythrocyte distribution width (RBC) [Ratio] 12.4 % Normal 11.5-15.0 [facility] Comment on above: Order Comment: Speci men Type: BLOOD SPECIMENOrdering Facility: [facility] Address: [address] [place] [address] Performed By: #### 5 8410-2 ####[facility] [id number] [address] [place] Hematocrit (Bld) [Volume fraction] 46.8 % High 36.0-46.0 [facility] Comment on above: Order Comment: Speci men Type: BLOOD SPECIMENOrdering Facility: [facility] Address: [address] [place] [address] Performed By: #### 5 8410-2 ####[facility] RADUKNOX CITYNCLIA [id number] [place] [address] [place] Hemoglobin (Bld) [Mass/Vol] 15.6 g/dL High 11.5-15.5 [facility] Comment on above: Order Comment: Speci men Type: BLOOD SPECIMENOrdering Facility: [facility] Address: [address] [place] [address] Performed By: #### 5 8410-2 ####[facility] [id number] [place] [address] [place] MCH (RBC) [Entitic mass] 28.0 pg Normal 26.0-34.0 [facility] Comment on above: Order Comment: Speci men Type: BLOOD SPECIMENOrdering Facility: [facility] Address: [address] [place] [address] Performed By: #### 5 8410-2 ####[facility]ITALA [id number] [place] [address] [place] MCHC (RBC) [Mass/Vol] 33.3 g/dL Normal 30.5-36.0 [facility] Comment on above: Order Comment: Speci men Type: BLOOD SPECIMENOrdering Facility: [facility] Address: [address] [place] [address] Performed By: #### 5 8410-2 ####[facility]ITALNCL[facility] [id number] [place] [address] [place] MCV (RBC) [Entitic vol] 83.9 fL Normal 80.0-100.0 [facility] Comment on above: Order Comment: Speci men Type: BLOOD SPECIMENOrdering Facility: [facility] Address: [address] [place] [address] Performed By: #### 5 8410-2 ####[facility] [id number] [place] [address] [place] Nucleated RBC (Bld) [#/Vol] 10*3/uL Normal <0.01 [facility] Comment on above: Order Comment: Speci men Type: BLOOD SPECIMENOrdering Facility: [facility] Address: [address] [place] [address] Performed By: #### 5 8410-2 ####[facility] HOSPITALFeliciano [id number] [place] [address] [place] Platelet mean volume (Bld) [Entitic vol] 11.2 fL Normal 9.0-12.7 [facility] Comment on above: Order Comment: Speci men Type: BLOOD SPECIMENOrdering Facility: [facility] Address: [address] [place] [address] Performed By: #### 5 8410-2 ####[facility]ALSNEHALBRIGH[facility] [id number] [place] [address] [place] Platelets (Bld) [#/Vol] 227 10*3/uL Normal 150-400 [facility] Comment on above: Order Comment: Speci men Type: BLOOD SPECIMENOrdering Facility: [facility] Address: [address] [place] [address] Performed By: #### 5 8410-2 ####[facility]ITALNCLIA [id number] [place] [address] [place] RBC (Bld) [#/Vol] 5.58 10*6/uL High 3.90-5.20 [facility] Comment on above: Order Comment: Speci men Type: BLOOD SPECIMENOrdering Facility: [facility] Address: [address] [place] [address] Performed By: #### 5 8410-2 ####[facility]ITALNCL[facility] [id number] [place] [address] [place] WBC (Bld) [#/Vol] 5.75 10*3/uL Normal 3.70-11.00 [facility] Comment on above: Order Comment: Speci men Type: BLOOD SPECIMENOrdering Facility: [facility] Address: [address] [place] [address] Performed By: #### 5 8410-2 ####[facility] ALBERTEVER LOVELACEWNCLIA [id number] [address] OF [facility] CNOVon 04-25-2024 CNOV Office Visit (OBGYWM ) ALEYDA MEJÍA ([id number]) 2000 F Date Time Provider Department 04/25/24 9:30 AM EDILMA SANDHU OBDILLAN During your visit today, we recorded the following information about you: Pulse Respiration Blood pressure Weight 94/minute 16/minute 118/68 148.8 kg Last Period 04/04/24 Edilma Sandhu APRN.SUGAR REPROCESS OPERATOR HEAD 04/25/2024 10:50 AM Addendum Blow Pit Operator offered: Patient declines. Aleyda Mejía is a 24 year old female who presents for problem visit of irregular bleeding. HPI: This episode of bleeding started end of February/early March has persisted for 3-4 weeks. Denies pain. Nexplanon inserted December 2022. Periods were monthly and lasted about 4 days. Experiencing stress - split up with partner 2 months ago. Has had unprotected intercourse. 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 difficile diarrhea COVID-19 08/03/2021 on ventilator 40 days Depression DVT (deep venous thrombosis) (HCC) right knee-during Covid hospitalization Eczema History of DVT (deep vein thrombosis) 03/11/2022 03/15/22 No indication for lovenox in . Will consider lovenox for 6 weeks . SW 03/11/2022 She states that she developed a blood clot under her right knee due to COVID and was treated at the [facility]. States she has been off Eliquis since December. TKRN Scarring of lung Covid related Tachycardia, unspecified post covid PAST SURGICAL HISTORY Procedure Laterality Date SECTION HX 10/01/2022 CHEST TUBES-SPECIFY covid treatment PAST SURGICAL HISTORY OF wisdom teeth TRACHEOSTOMY PLANNED SEPARATE PROCEDURE during Covid ventilator FAMILY HISTORY Problem Relation Age of Onset Diabetes Mother Hypertension Father No Known Problems Sister No Known Problems Brother No Known Problems Brother Leukemia Maternal Grandmother Heart Maternal Grandmother Suicide / Suicidal Behaviors Maternal Grandfather No Known Problems Paternal Grandmother No Known Problems Paternal Grandfather Social History Tobacco Use Smoking status: Never Smokeless tobacco: Never Vaping Use Vaping Use: Never used Substance Use Topics Alcohol use: Not Currently Drug use: Never Current Outpatient Medications Medication Sig SYMBICORT 160-4.5 mcg/actuation inhaler Inhale 2 Puffs as instructed two times a day. Uses as needed etonogestrel (NEXPLANON) subdermal implant 68 mg 1 Each by SUBDERMAL route as directed. ALBUTEROL INHALATION Inhale as instructed. No current facility-administered medications for this visit. 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: Positive for irregular vaginal bleeding Allergies and current medication updated:Yes EXAM: BP 118/68 Pulse 94 Resp 16 Wt 328 lb (148.8kg) SpO2 95% LMP 04/04/2024 GENERAL: pleasant, female in no apparent distress HEENT: Normocephalic, atraumatic, mucus membranes moist, and no lesions CHEST: Normal inspiratory effort PELVIC: external genitalia normal, normal Bartholin's glands, urethra, Ducor's glands, no vulvar lesions, cervix not completely visualized due to body habitus, good vaginal support, physiologic discharge present, normal appearing perineal body and perianal region + menses + 1.5 cm flat brown melanocytic nevi to mons pubis, no changes per patient BIMANUAL: uterus normal size, shape and consistency, no adnexal masses, and non-tender, limited due to body habitus NEURO: alert and oriented x3,exam grossly non-focal EXTREMITIES: normal ASSESSMENT AND PLAN: 1. Irregular bleeding - ICD9: 626.4, ICD10: N92.6 - To notify or go to ER if using a pad/tampon every hour or getting lightheaded/dizzy - COMPLETE BLOOD COUNT - HEMOGLOBIN A1C - THYROID STIMULATING HORMONE - T4 FREE/FREE THYROXINE - GONORRHEA/CHLAMYDIA NAAT - SYPHILIS TOTAL W/REFLEX - HIV 1/2 COMBO WITH REFLEX TO DIFFERENTIATION - HEPATITIS C ANTIBODY IA WITH CONFIRMATION - HEPATITIS B SURFACE ANTIGEN - PELVIC US WHI - Discussed new pattern may be related to stress - If all findings negative, can consider removal of Nexplanon and switch to alternate contraception RTO for annual. Edilma Sandhu APRN.CNP Medical Decision Making: Problems: Moderate: New problem with uncertain prognosis Data: Unique test(s) ordered: 3+ Risk: Low: Low risk from testing/treatment Medical Decision Making Level: 4 - Moderate Edilma Sandhu APRN.CNP 04/25/2024 9:49 AM Signed Addended by: EDILMA SANDHU on: 04/25/2024 09:49 AM Modu (more content not included)... Normal [facility] HBV surface Ag Ser Qlon 04-01 HBV surface Ag Ql (S) Negative Normal Negative [facility] Comment on above: Order Comment: Speci men Type: BLOOD SPECIMENOrdering Facility: [facility] Address: [address] [place] [address] Performed By: #### 5 195-3, 58839-8, 74927-9 ####[facility] LABCLIA [id number] [place] [address] [place] HCV Ab Ser Qlon 04-25-2024 HCV Ab Ql (S) Negative Normal Negative [facility] Comment on above: Order Comment: Speci men Type: BLOOD SPECIMENOrdering Facility: [facility] Address: [address] [place] [address] Result Comment: The result suggests no evidence of active infection with Hepatitis C virus. Should recent infection be suspected, repeat testing may be considered 4-6 weeks after this draw. Performed By: #### 1 6128-1 ####[facility] LABNORTHEASTERN [facility] [id number] [place] [address] [place] HIV 1+2 Ab IA Qlon 4 HIV 1 and 2 Ab IA.rapid Nom (S/P/Bld) Normal [facility] Comment on above: Order Comment: Speci men Type: BLOOD SPECIMENOrdering Facility: [facility] Address: [address] [place] [address] Result Comment: Test not indicated. Performed By: #### 5 195-3, 80258-1, 07079-2 ####[facility] [id number] [address] [place] HIV 1+2 Ab+HIV1 p24 Ag IA Ql Non-Reactive Normal Nonreactive [facility] Comment on above: Order Comment: Speci men Type: BLOOD SPECIMENOrdering Facility: [facility] Address: [address] [place] [address] Performed By: #### 5 195-3, 46063-4, 11373-4 ####[facility] [id number] [address] [place] HIV immunoassay testing algorithm interpretation (S/P/Bld) [Interp] Normal [facility] Comment on above: Order Comment: Speci men Type: BLOOD SPECIMENOrdering Facility: [facility] Address: [address] [place] [address] Result Comment: No e vidence of HIV-1 or HIV-2 infection. Should recent infection be suspected, repeat testing may be considered 2-3 weeks after this draw. [place] Rev. Code 3701.243(E): This information has been disclosed to you from confidential records protected from disclosure by state law. ???You shall make no further disclosure of this information without the specific, written, and informed release of the individual to whom it pertains or as otherwise permitted by state law. A general authorization for the release of medical or other information is not sufficient for the purpose of the release of HIV test results or diagnoses. Performed By: #### 5 195-3, 94685-9, 45621-7 ####[facility] LABIA [id number] [place] [address] [place] HbA1c (Bld)on 04-25-2024 Average glucose Estimated from glycated hemoglobin (Bld) [Mass/Vol] 100 mg/dL Normal [facility] Comment on above: Order Comment: Speci men Type: BLOOD SPECIMENOrdering Facility: [facility] Address: [address] [place] [address] Result Comment: eAG: (Estimated average glucose) is a calculated value from HgbA1c and is registered representative of the average blood glucose level in the last 2-3 month period. Performed By: #### 5 5454-3 ####[facility] MIAMISBURGIA [id number] [address] [place] HbA1c (Bld) [Mass fraction] 5.1 % Normal 4.3-5.6 [facility] Comment on above: Order Comment: Speci men Type: BLOOD SPECIMENOrdering Facility: [facility] Address: [address] [place] [address] Result Comment: [place] Diabetes Association guidelines indicate that patients with HgbA1c in the range 5.7-6.4% are at increased risk for development of diabetes, and intervention by lifestyle modification may be beneficial. HgbA1c greater or equal to 6.5% is considered diagnostic of diabetes. Performed By: #### 5 5454-3 ####[facility] LABIA [id number] [place] [address] [place] Reagin and Treponema pallidu m IgG and IgM [Interp]on 04-25-2024 T. pallidum IgG+IgM IA Ql (S) Non-Reactive Normal Nonreactive [facility] Comment on above: Order Comment: Speci men Type: BLOOD SPECIMENOrdering Facility: [facility] Address: [address] [place] [address] Performed By: #### 5 195-3, 35905-1, 17343-3 ####[facility] LABCLIA [id number] [place] [address] [place] Reagin+T pallidum IgG+IgM Se rPl-Impon 04-25-2024 Reagin and Treponema pallidum IgG and IgM [Interp] Cannot exclude recent Treponemal infection if specimen collected within 7-10 days after appearance of suspect lesions or 2-3 weeks after an exposure. Clinical correlation is required. Normal [facility] Comment on above: Order Comment: Speci men Type: BLOOD SPECIMENOrdering Facility: [facility] Address: [address] [place] [address] Performed By: #### 5 195-3, 40857-2, 82521-2 ####[facility] LABCLIA [id number] [place] [address] [place] T4 Free SerPl-mCncon 024 Free T4 [Mass/Vol] 1.3 ng/dL Normal 0.9-1.7 [facility] Comment on above: Order Comment: Speci men Type: BLOOD SPECIMENOrdering Facility: [facility] Address: [address] [place] [address] Performed By: #### 3 024-7, 3016-3 ####[facility] LABIA [id number] [place] [address] [place] TSH SerPl-aCncon 04-25-2024 TSH Qn 2.020 m[IU]/L Normal 0.270-4.200 [facility] Comment on above: Order Comment: Speci men Type: BLOOD SPECIMENOrdering Facility: [facility] Address: [address] [place] [address] Result Comment: If t he patient is , TSH reference range varies by gestational period: First Trimester (weeks 9-12): 0.180-2.990 mIU/L Second Trimester: 0.110-3.980 mIU/L Third Trimester: 0.480-4.710 mIU/L Andrew Rivera et al. A Practical Approach for the Verifications and Determination of Site- and Trimester-Specific Reference Intervals for Thyroid Function tests in . Thyroid, 2019:29:3:412-420. Philip Méndez et al. 2017 Guidelines of the [place] Thyroid Association for the Diagnosis and Management of Thyroid Disease during and the . Thyroid, 2017:27:3:315-389. Performed By: #### 3 024-7, 3016-3 ####[facility] LABCLIA [id number] [place] [address] [place] XR Chest PA and Lateralon IMPRESSION: No acute radiographic abnormality. Online Producer: PSCB Transcribe Date/Time: Jan 30 2024 8:40A Dictated by : ANNIKA ESCOBAR MD This examination was interpreted and the report reviewed and electronically signed by: ANNIKA ESCOBAR MD on Jan 30 2024 8:40AM [facility] DIVISION OF RADIOLOGY * * *Final Report* * * DATE OF EXAM: Jan 30 2024 8:40AM WOX 5291 - XR CHEST 2V FRONTAL/LAT / PROCEDURE REASON: Cough, persistent * * * * Physician Interpretation * * * * EXAMINATION: CHEST RADIOGRAPH (2 VIEW FRONTAL & LATERAL) CLINICAL HISTORY: Cough, persistent MQ: XC2_6 EXAM DATE/TIME: 01/30/2024 8:40 AM COMPARISON: No relevant prior studies available. RESULT: Lines, tubes, and devices: None. Lungs and pleura: No consolidation. No lung mass. No pleural effusion. No pneumothorax. Cardiomediastinal silhouette: Normal cardiomediastinal silhouette. Bones and soft tissues: Unremarkable. DIVISION OF RADIOLOGY Provider, [facility] - 01/30/2024 * * *Final Report* * * DATE OF EXAM: Jan 30 2024 8:40AM WOX 5291 - XR CHEST 2V FRONTAL/LAT / PROCEDURE REASON: Cough, persistent * * * * Physician Interpretation * * * * EXAMINATION: CHEST RADIOGRAPH (2 VIEW FRONTAL & LATERAL) CLINICAL HISTORY: Cough, persistent MQ: XC2_6 EXAM DATE/TIME: 01/30/2024 8:40 AM COMPARISON: No relevant prior studies available. RESULT: Lines, tubes, and devices: None. Lungs and pleura: No consolidation. No lung mass. No pleural effusion. No pneumothorax. Cardiomediastinal silhouette: Normal cardiomediastinal silhouette. Bones and soft tissues: Unremarkable. IMPRESSION IMPRESSION: No acute radiographic abnormality. Online Producer: BEBETO Transcribe Date/Time: Jan 30 2024 8:40A Dictated by : ANNIKA ESCOBAR MD This examination was interpreted and the report reviewed and electronically signed by: ANNIKA ESCOBAR MD on Jan 30 2024 8:40AM EST [facility] Radiology Study observation (narrative) [facility] XR Chest PA and LateralOrder ed By: [facility] Provider on 01-30-2024 [facility] Qualitative QuantiFERON-TB g old in tube testOrdered By: Matt Mendoza on 01-09-2024 M. tuberculosis tuberculin stim IFN-g Ql (Bld) 0.01 IU/mL . [facility] Thin prep Papanicolaou smear with manual screeningOrdered By: Matt Mendoza on 01-09-2024 Thin prep Papanicolaou smear with manual screening Comment . [facility] Comment on above: QuantiFERON-TB Gold Plus is a qualitative indirect test forM tuberculosis infection (including disease) and isintended for use in conjunction with risk assessment,radiography, and other medical and diagnostic evaluations.The QuantiFERON-TB Gold Plus result is determined bysubtracting the Nil value from either TB antigen (Ag)value. The Mitogen tube serves as a control for the test. Thin prep Papanicolaou smear with manual screening 0.03 IU/mL . [facility] Thin prep Papanicolaou smear with manual screening 0.02 IU/mL . [facility] Thin prep Papanicolaou smear with manual screening > 10.00 IU/mL . [facility] Thin prep Papanicolaou smear with manual screening Negative Negative [facility] Comment on above: No response to M tub erculosis antigens detected.Infection with M tuberculosis is unlikely, but high riskindividuals should be considered for additional testing(ATS/IDSA/CDC Clinical Practice Guidelines, 2017). Thereference range is an Antigen minus Nil result of <0.35IU/mL.The specimen received for QuantiFERON testing was incubatedby the ordering institution. Specific procedures outlinedin our Directory of Services and in the package insert forthe QuantiFERON Gold (In Tube) test must be followed toenable for proper stimulation of cells for the productionof interferon gamma. Chemiluminescence immunoassaymethodologyPerformed at: [facility] [address] [id number] Director: Konstantin Horner PhD, Phone: [phone] Laboratory - Microbiology an d Antimicrobial susceptibilityOrdered By: Macario Sage on 12-31-2023 SARS-CoV-2 (COVID-19) RNA GIRISH+probe Ql (Unsp spec) [facility] SARS-CoV-2 (COVID-19) RNA GIRISH+probe Ql (Unsp spec) [facility] COVID NAAT, UPPER RESPIRATOR Y, ROUTINEon 08-02-2023 SARS-CoV-2 (COVID-19) RNA GIRISH+probe Ql (Resp) Not detected See comment [facility] STREP A MOLECULAR (POC)on Procedural Control Valid [facility] Strep A (POCT) Negative Negative [facility] Basophil percentageOrdered B y: Rebeka Harmon on 04-23-2023 Chloride [Moles/Vol] 110 mmol/L 98-107 [facility] Glucose [Mass/Vol] 95 mg/dL 74-106 [facility] Potassium [Moles/Vol] 3.2 mmol/L 3.5-5.1 [facility] Sodium [Moles/Vol] 139 mmol/L 136-145 [facility] Laboratory - Chemistry and C hemistry - challengeOrdered By: Rebeka Harmon on 04-23-2023 CO2 [Moles/Vol] 25.0 mmol/L 21.0-32.0 [facility] Urea nitrogen/Creatinine [Mass ratio] 16.0 mg/mg - [facility] No Panel InformationOrdered By: Rebeka Harmon on 04-23-2023 Estimated Creatinine Clearance Calc 119.70 ml/min [facility] Estimated GFR (MDRD) Amer 111 mL/min >60 [facility] Comment on above: GFR Calc Estimated GFR (MDRD) Non-Af Amer 92 mL/min >60 [facility] Comment on above: Non- GFR Calc Serum or plasma calcium aster urement (mass/volume)Ordered By: Rebeka Harmon on 04-23-2023 Calcium [Mass/Vol] 8.9 mg/dL 8.5-10.1 [facility] Serum or plasma creatinine m easurement (mass/volume)Ordered By: Rebeka Harmon on 04-23-2023 Creatinine [Mass/Vol] 0.81 mg/dL 0.55-1.02 [facility] Comment on above: The validity of the calculated GFR & GFRAA in patients over 70 years has not been determined. Clinical correlation is essential. Serum or plasma urea nitroge n measurement (mass/volume)Ordered By: Rebeka Harmon on 04-23-2023 Urea nitrogen [Mass/Vol] 13 mg/dL 7-18 [facility] Thin prep Papanicolaou smear with manual screeningOrdered By: Rebeka Harmon on 04-23-2023 Thin prep Papanicolaou smear with manual screening 4 5-15 [facility] Throat specimen bacteria hiren ntification by cultureOrdered By: Dr. Levy on 04-09-2023 Bacteria identified Cx Nom (Throat) streptococcus isolated. [facility] No Panel Informationon 03-24 IMPRESSION: Mild sof t tissue swelling along the lateral malleolus. No acute fractures demonstrated. Online Producer: BEBETO Transcribe Date/Time: Mar 24 2023 4:29P Dictated by : CLIFTON CORONADO MD This examination was interpreted and the report reviewed and electronically signed by: CLIFTON CORONADO MD on Mar 24 2023 4:33PM [facility] DIVISION OF RADIOLOGY Radiology Study observation (narrative) [facility] No Panel InformationOrdered By: [facility]cf Provider on 03-24-2023 [facility] XR Ankle - left AP and Later al and obliqueon 03-24-2023 * * *Final Report* * * DATE OF EXAM: Mar 24 2023 4:20PM WOX 5298 - XR ANKLE 3V AP/LAT/OBL LT / PROCEDURE REASON: multiple diagnoses * * * * Physician Interpretation * * * * EXAM TITLE: XR ANKLE 3V AP/LAT/OBL LT, XR FOOT 3V AP/LAT/OBL LT EXAM DATE/TIME: 03/24/2023 4:20 PM COMPARISON: None. CLINICAL INDICATION/HISTORY: Fall. TECHNIQUE: AP, mortise and lateral views of the left ankle are presented. AP, oblique and lateral views of the left foot are also presented. FINDINGS: No acute fractures or subluxations are noted. There is a well-corticated accessory bone along the lateral malleolus. The mortise spaces and other joint spaces are maintained. There is no ankle joint effusion. The mineralization of the bones is normal. There is mild soft tissue swelling along the lateral malleolus. DIVISION OF RADIOLOGY Provider, [facility] - 03/24/2023 * * *Final Report* * * DATE OF EXAM: Mar 24 2023 4:20PM WOX [id number] - XR ANKLE 3V AP/LAT/OBL LT / PROCEDURE REASON: multiple diagnoses * * * * Physician Interpretation * * * * EXAM TITLE: XR ANKLE 3V AP/LAT/OBL LT, XR FOOT 3V AP/LAT/OBL LT EXAM DATE/TIME: 03/24/2023 4:20 PM COMPARISON: None. CLINICAL INDICATION/HISTORY: Fall. TECHNIQUE: AP, mortise and lateral views of the left ankle are presented. AP, oblique and lateral views of the left foot are also presented. FINDINGS: No acute fractures or subluxations are noted. There is a well-corticated accessory bone along the lateral malleolus. The mortise spaces and other joint spaces are maintained. There is no ankle joint effusion. The mineralization of the bones is normal. There is mild soft tissue swelling along the lateral malleolus. IMPRESSION IMPRESSION: Mild soft tissue swelling along the lateral malleolus. No acute fractures demonstrated. Online Producer: PSCB Transcribe Date/Time: Mar 24 2023 4:29P Dictated by : CLIFTON CORONADO MD This examination was interpreted and the report reviewed and electronically signed by: CLIFTON CORONADO MD on Mar 24 2023 4:33PM [facility] XR Foot - left AP and Latera l and obliqueon 03-24-2023 * * *Final Report* * * DATE OF EXAM: Mar 24 2023 4:20PM WOX [id number] - XR FOOT 3V AP/LAT/OBL LT / PROCEDURE REASON: multiple diagnoses * * * * Physician Interpretation * * * * EXAM TITLE: XR ANKLE 3V AP/LAT/OBL LT, XR FOOT 3V AP/LAT/OBL LT EXAM DATE/TIME: 03/24/2023 4:20 PM COMPARISON: None. CLINICAL INDICATION/HISTORY: Fall. TECHNIQUE: AP, mortise and lateral views of the left ankle are presented. AP, oblique and lateral views of the left foot are also presented. FINDINGS: No acute fractures or subluxations are noted. There is a well-corticated accessory bone along the lateral malleolus. The mortise spaces and other joint spaces are maintained. There is no ankle joint effusion. The mineralization of the bones is normal. There is mild soft tissue swelling along the lateral malleolus. DIVISION OF RADIOLOGY Provider, [facility] - 03/24/2023 * * *Final Report* * * DATE OF EXAM: Mar 24 2023 4:20PM WOX [id number] - XR FOOT 3V AP/LAT/OBL LT / PROCEDURE REASON: multiple diagnoses * * * * Physician Interpretation * * * * EXAM TITLE: XR ANKLE 3V AP/LAT/OBL LT, XR FOOT 3V AP/LAT/OBL LT EXAM DATE/TIME: 03/24/2023 4:20 PM COMPARISON: None. CLINICAL INDICATION/HISTORY: Fall. TECHNIQUE: AP, mortise and lateral views of the left ankle are presented. AP, oblique and lateral views of the left foot are also presented. FINDINGS: No acute fractures or subluxations are noted. There is a well-corticated accessory bone along the lateral malleolus. The mortise spaces and other joint spaces are maintained. There is no ankle joint effusion. The mineralization of the bones is normal. There is mild soft tissue swelling along the lateral malleolus. IMPRESSION IMPRESSION: Mild soft tissue swelling along the lateral malleolus. No acute fractures demonstrated. Online Producer: PSCB Transcribe Date/Time: Mar 24 2023 4:29P Dictated by : CLIFTON CORONADO MD This examination was interpreted and the report reviewed and electronically signed by: CLIFTON CORONADO MD on Mar 24 2023 4:33PM [facility] Microbial respiratory cultur eOrdered By: Kamini Salgado on 12-24-2022 Bacteria identified Respiratory culture Nom (Unsp spec) [facility] Gram stain for investigation of transfusion reactionOrdered By: Kamini Salgado on 12-22-2022 Microscopic observation Gram stain Nom (Unsp spec) [facility] Absolute lymphocyte countOrd ered By: Kamini Salgado on 12-08-2022 Lymphocytes Auto (Unsp spec) [#/Vol] 2.58 10*3/uL 0.83-4.51 [facility] Basophil percentageOrdered B y: Kamini Salgado on 12-08-2022 Basophils/100 WBC (Bld) 0.5 % 0-1 [facility] Bilirubin [Mass/Vol] 1.10 mg/dL 0.20-1.00 [facility] Comment on above: For patients on eltr ombopag therapy, use of Dimension [place] TBIL is not recommended. Chloride [Moles/Vol] 107 mmol/L 98-107 [facility] Eosinophils/100 WBC (Bld) 3.5 % 0-5 [facility] Glucose [Mass/Vol] 86 mg/dL 74-106 [facility] Neutrophils (Bld) [#/Vol] 4.2 10*3/uL 2.0-7.7 [facility] Neutrophils/100 WBC (Bld) 55.8 % 47-70 [facility] Potassium [Moles/Vol] 4.0 mmol/L 3.5-5.1 [facility] Protein [Mass/Vol] 7.6 g/dL 6.4-8.2 [facility] Sodium [Moles/Vol] 142 mmol/L 136-145 [facility] WBC (Bld) [#/Vol] 7.5 10*3/uL 4.4-11.0 [facility] Blood erythrocytes count (nu mber/volume)Ordered By: Kamini Salgado on 12-08-2022 RBC (Bld) [#/Vol] 5.26 10*6/uL 4.2-5.4 [facility] Blood hemoglobin measurement (mass/volume)Ordered By: Kamini Salgado on 12-08-2022 Hemoglobin (Bld) [Mass/Vol] 14.2 g/dL 12.0-15.0 [facility] Blood lymphocytes/100 leukoc ytesOrdered By: Kamini Salgado on 12-08-2022 Lymphocytes/100 WBC (Bld) 34.6 % 19-41 [facility] Blood monocytes/100 leukocyt esOrdered By: Kamini Salgado on 12-08-2022 Monocytes/100 WBC (Bld) 5.2 % 0-10 [facility] Blood platelet mean volumeOr dered By: Kamini Salgado on 12-08-2022 Platelet mean volume (Bld) [Entitic vol] 11.2 fL 6.2-12.0 [facility] Determination of erythrocyte mean corpuscular volume (MCV)Ordered By: Kamini Salgaod on 12-08-2022 MCV (RBC) [Entitic vol] 85.4 fL 81-99 [facility] Hematocrit Auto (Bld) [Volum e fraction]Ordered By: Kamini Salgado on 12-08-2022 Hematocrit (Bld) [Volume fraction] 44.9 % 37-47 [facility] Laboratory - Chemistry and C hemistry - challengeOrdered By: Kamini Salgado on 12-08-2022 ALP [Catalytic activity/Vol] 74 U/L 45-117 [facility] ALT [Catalytic activity/Vol] 48 U/L 13-56 [facility] CO2 [Moles/Vol] 29.0 mmol/L 21.0-32.0 [facility] Cobalamin (Vitamin B12) [Mass/Vol] 533 pg/mL 211-911 [facility] Globulin (S) [Mass/Vol] 3.7 g/dL 2.2-4.2 [facility] Urea nitrogen/Creatinine [Mass ratio] 16.1 mg/mg 10-20 [facility] Laboratory - Hematology and Cell countsOrdered By: Kamini Salgado on 12-08-2022 Erythrocyte distribution width (RBC) [Entitic vol] 40.6 fL 35.1-43.9 [facility] Erythrocyte distribution width (RBC) [Ratio] 13.1 % 11.6-14.6 [facility] Immature granulocytes/100 WBC (Bld) 0.400 % 0.0-0.9 [facility] Comment on above: IG% - Immature Granu locytes (promyelocytes, myelocytes and metamyelocytes) > 1% indicates that a LEFT SHIFT is Present. MCH (RBC) [Entitic mass] 27.0 pg 27.0-32.0 [facility] Nucleated RBC/100 WBC (Bld) [Ratio] 0 % 0-5 [facility] ([facility]) [Mass/Vol]Or dered By: Kamini Salgado on 12-08-2022 MCHC (RBC) [Mass/Vol] 31.6 g/dL 32-36 [facility] No Panel InformationOrdered By: Kamini Salgado on 12-08-2022 Estimated GFR (MDRD) Amer 95 mL/min >60 [facility] Comment on above: GFR Calc Estimated GFR (MDRD) Non-Af Amer 79 mL/min >60 [facility] Comment on above: Non- GFR Calc Thyroid Stimulating Hormone (TSH) 1.35 uIU/mL 0.358-3.74 [facility] Vitamin D 25-Hydroxy 33.3 ng/mL [facility] Comment on above: Vitamin D 25(OH) Sta tus Range Deficiency <20 ng/mL (50nmol/L) Insufficiency 20 - 30 ng/mL (50 - 75 nmol/L) Sufficiency 30 - 100 ng/mL (75 - 250 nmol/L) Toxicity >100 ng/mL (>250 nmol/L) Platelets bldOrdered By: Melina Salgado on 12-08-2022 Platelets (Bld) [#/Vol] 265 10*3/uL 150-450 [facility] Serum or plasma albumin aster urement (mass/volume)Ordered By: Kamini Salgado on 12-08-2022 Albumin [Mass/Vol] 3.9 g/dL 3.2-5.0 [facility] Serum or plasma albumin/glob ulin mass ratioOrdered By: Kamini Salgado on 12-08-2022 Albumin/Globulin [Mass ratio] 1.1 {ratio} 0.9-2.4 [facility] Serum or plasma calcium aster urement (mass/volume)Ordered By: Kamini Salgado on 12-08-2022 Calcium [Mass/Vol] 9.6 mg/dL 8.5-10.1 [facility] Serum or plasma creatinine m easurement (mass/volume)Ordered By: Kamini Salgado on 12-08-2022 Creatinine [Mass/Vol] 0.93 mg/dL 0.55-1.02 [facility] Comment on above: The validity of the calculated GFR & GFRAA in patients over 70 years has not been determined. Clinical correlation is essential. Serum or plasma urea nitroge n measurement (mass/volume)Ordered By: Kamini Salgado on 12-08-2022 Urea nitrogen [Mass/Vol] 15 mg/dL 7-18 [facility] Thin prep Papanicolaou smear with manual screeningOrdered By: Kamini Salgado on 12-08-2022 Thin prep Papanicolaou smear with manual screening 27 U/L 15-37 [facility] Thin prep Papanicolaou smear with manual screening 6 5-15 [facility] HCG QUAL UR B/Oon 12-06-2022 status Negative neg - [facility] Quality Check Yes [facility] CNDSon 10-03-2022 CNDS HNO ID: [id number] Author: Ganga Randhawa MD Service: Obstetrics Author Type: Physician Type: Discharge Summary Filed: 10/03/2022 4:25 PM Note Text: DISCHARGE SUMMARY OBSTETRICS PATIENT NAME: Aleyda Mejía ADMISSION DATE: 10/01/2022 DISCHARGE DATE: 10/03/2022 Attending Physician: Ganga Randhawa MD Code Status: Not on file Treatment Team: Attending Provider: Ganga Randhawa MD Maternal Obstetric Provider: Christy Abdalla Reason for Hospitalization: Intrauterine . Principal Problem: care following delivery POA: No Active Problems: COVID19 with history of tracheostomy; long COVID; supplemental O2 requirement POA: Yes History of tachycardia POA: Yes History of DVT (deep vein thrombosis) POA: Yes History of depression POA: Yes Resolved Problems: Obesity in POA: Yes PROCEDURES/SURGERY DURING HOSPITALIZATION: Delivery Summary: José Mejía [[id number]] Delivery Information: Delivery Date: 10/01/22 Delivery type: , Low Transverse Delivering Clinician: Kevin Capellan MD [place]: Gender: Male Weight (grams): 3477 g One Minute : 8 Five Minute : 9 Procedures (if applicable) Recent Surgical Summary Past Procedures (09/03/2022 to Today) Date Procedures Providers Location 10/01/2022 SECTION Kevin Capellan (Primary)[facility] Hospital Course: 22 year old female who is post-operative day #2 from delivery as noted above. She was admitted for a planned delivery due to her known long COVID-19 with baseline O2 requirement and tachycardia. Her peripartum course was uncomplicated aside from her known, chronic medical conditions. By post-operative day #2 she was meeting all milestones and was stable for discharge home. The patient was recommended for a 6 week course of Lovenox due to her history of a provoked DVT when she had COVID-19 in 2020. She was not on anti-coagulation during her antepartum course. The patient was unable to receive formal training on Lovenox injections during her course due to it being a weekend. I advised that the preferred course would be for the patient to stay until Tuesday and have teaching with a pharmacy registered representative before discharge. The patient's has two close relatives who are reportedly nurses who are willing and able to teach / assist with Lovenox injections as early as tomorrow morning. I advised the patient of her increased risk for VTE in the immediate period and that incorrect injections of Lovenox could lead to decreased efficacy of the medication. She expressed understand and still desired discharge with the plan for her family member to assist her. Additionally, she has a follow up visit scheduled with her primary district agent Dr. Woo this coming Tuesday. I advised her to maintain that appointment and check in with Dr. Woo regarding her Lovenox injections should she have any questions. She was amenable to this plan. Consulting Teams During Hospitalization: None Patient Condition @ Discharge: Good Discharge Disposition: Home with Relative Specific Concerns for Follow-up Post Discharge: Routine Care, Incisional/Perineal Care, and Maintenance of chronic medical problems Information Provided to Patient: Activity When You Leave the Hospital Gradually increase your activity level until back to normal at approximately 6 weeks post- (Walking and stairs as tolerated) May use stairs No baths for 6 weeks to allow the cervix to close (this includes swimming pools and hot tubs) No driving for 2 weeks No driving until you stop taking narcotic medicine and you are able to respond to adverse traffic conditions: Until you are not too sore to stop or turn quickly No lifting greater than 15 pounds for six weeks No walking restrictions Shower daily, towel or blow dry incision (low heat setting) Six Weeks Pelvic Rest - This means no sex, tampons, douching or any items in your vagina Diet Instructions Resume your pre-hospital diet Wound/Surgical Site Care Check your incision for signs of infection: redness, swelling, drainage Do not apply any lotions or powders near any incision Do not cover incision with any bandage Keep your incision clean and dry Remove steri strips 7 days after surgery (They may fall off sooner and that is okay) Steri-strips may fall off in the shower You may spot bleed for up to six week post- Discharge Medications: Current Discharge Medication List START taking these medications enoxaparin (LOVENOX) 40 mg Inject 40 mg subcutaneously q 24 HR. Qty: 8 mL Refills: 1 ibuprofen (MOTRIN) 600 mg Take 600 mg by mouth every 6 hours as needed for pain. Qty: 30 tablet Refills: 1 CONTINUE these medications which have CHANGED venlafaxine ER (EFFEXOR XR) 37.5 mg Take 37.5 mg by mouth once daily. (more content not included)... Normal [facility] ANES POSTPROC EVALon 022 ANES POSTPROC EVAL HNO ID: [id number] Author: Siva Correia MD Service: Anesthesiology Author Type: Anesthesiologist Type: Anesthesia Postprocedure Evaluation Filed: 10/02/2022 9:23 AM Note Text: POST ANESTHESIA EVALUATION NOTE : 2000 Procedure Summary Date: 10/01/22 Room / Location: [place] [address] / [facility] Anesthesia Start: 1244 Anesthesia Stop: 1427 Procedure: SECTION (Abdomen) Diagnosis: Obesity complicating , third trimester (Obesity complicating , third trimester [O99.213]) Surgeons: Kevin Capellan MD Responsible Provider: Kimani Rubin MD Anesthesia Type: epidural ASA Status: 3 Anesthesia Type: epidural Last Vitals Vitals Value Taken Time BP 91/64 10/02/229 Temp 36.8 ?C (98.2 ?F) 10/02/22408 Pulse 110 10/02/22408 Resp 18 10/02/22408 SpO2 97 % 10/02/22408 José Mejía [[id number]] Baby Delivery: 10/01/2022 1312 Post Anesthesia Patient Status Patient Evaluation: floor. Anticipated Disposition: inpatient floor planned admission. Neurological Status: aware and responsive. Pulmonary Status: breathing comfortably on room air Airway Control: returned to baseline unsupported. Cardiovascular Status: stable. Pain Management: clinically adequate Postoperative Hydration: acceptable. Intraoperative Events: no significant anesthesia events Recommendation: continue current plan of care. Anesthesia Observations No Documentation SIGNATURE: Siva Correia MD PATIENT NAME: Aleyda Mejía DATE: October 02, 2022 TIME: 9:15 AM CSN: [id number] Normal [facility] CBC panel Auto (Bld)on 10-02 Erythrocyte distribution width (RBC) [Ratio] 14.0 % Normal 11.5-15.0 [facility] Comment on above: Order Comment: Speci men Type: BLOOD SPECIMENOrdering Facility: [facility] Address: [address] [place] [address] Performed By: #### 5 8410-2 ####[facility] LABORATORYCLIA [id number] [place] [address] [place] Hematocrit (Bld) [Volume fraction] 33.6 % Low 36.0-46.0 [facility] Comment on above: Order Comment: Speci men Type: BLOOD SPECIMENOrdering Facility: [facility] Address: [address] [address] Performed By: #### 5 8410-2 ####[facility] LABORATORYCLIA [id number] [place] [address] [place] Hemoglobin (Bld) [Mass/Vol] 11.0 g/dL Low 11.5-15.5 [facility] Comment on above: Order Comment: Speci men Type: BLOOD SPECIMENOrdering Facility: [facility] Address: [address] [address] Performed By: #### 5 8410-2 ####[facility] LABORATORYCLIA [id number] [place] [address] [place] MCH (RBC) [Entitic mass] 28.5 pg Normal 26.0-34.0 [facility] Comment on above: Order Comment: Speci men Type: BLOOD SPECIMENOrdering Facility: [facility] Address: [address] [address] Performed By: #### 5 8410-2 ####[facility] LABORATORYCLIA [id number] [address] STATES [facility] MCHC (RBC) [Mass/Vol] 32.7 g/dL Normal 30.5-36.0 [facility] Comment on above: Order Comment: Speci men Type: BLOOD SPECIMENOrdering Facility: [facility] Address: [address] [place] [address] Performed By: #### 5 8410-2 ####[facility] LABORATORYCLIA [id number] [address] MCV (RBC) [Entitic vol] 87.0 fL Normal 80.0-100.0 [facility] Comment on above: Order Comment: Speci men Type: BLOOD SPECIMENOrdering Facility: [facility] Address: [address] [place] [address] Performed By: #### 5 8410-2 ####[facility] LABORATORYCLIA [id number] [address] Nucleated RBC (Bld) [#/Vol] 10*3/uL Normal <0.01 [facility] Comment on above: Order Comment: Speci men Type: BLOOD SPECIMENOrdering Facility: [facility] Address: [address] [place] [address] Performed By: #### 5 8410-2 ####[facility] LABORATORYCLIA [id number] [address] [place] Platelet mean volume (Bld) [Entitic vol] 12.2 fL Normal 9.0-12.7 [facility] Comment on above: Order Comment: Speci men Type: BLOOD SPECIMENOrdering Facility: [facility] Address: [address] [place] [address] Performed By: #### 5 8410-2 ####[facility] LABORATORYCLIA [id number] [address] [place] Platelets (Bld) [#/Vol] 166 10*3/uL Normal 150-400 [facility] Comment on above: Order Comment: Speci men Type: BLOOD SPECIMENOrdering Facility: [facility] Address: [place] [address] Performed By: #### 5 8410-2 ####[facility] LABORATORYCLIA [id number] [place] [id number] [place] RBC (Bld) [#/Vol] 3.86 10*6/uL Low 3.90-5.20 [facility] Comment on above: Order Comment: Speci men Type: BLOOD SPECIMENOrdering Facility: [facility] Address: [place] [address] Performed By: #### 5 8410-2 ####[facility] LABORATORYCLIA [id number] [place] [id number] [place] WBC (Bld) [#/Vol] 10.81 10*3/uL Normal 3.70-11.00 [facility] Comment on above: Order Comment: Speci men Type: BLOOD SPECIMENOrdering Facility: [facility] Address: [place] [address] Performed By: #### 5 8410-2 ####[facility] LABORATORYCLIA [id number] [address] OF [facility] ANES PRE-OPon 10-01-2022 ANES PRE-OP HNO ID: [id number] Author: Candelario Shaw MD Service: Anesthesiology Author Type: Fellow Type: Anesthesia Preprocedure Evaluation Filed: 10/01/2022 8:45 AM Note Text: Attestation signed by Kimani Rubin MD at 10/01/2022 1:23 PM Staff Note I have seen this patient and reviewed pertinent medical records. I agree with the anesthesia provider's assessment and plan with my ammendments. Will proceed with anesthetic technique stated. 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 Tracheostomy tube not present Mallampati: III. TM distance: >3 FB. Neck ROM: full ROM without neurological symptoms. Mouth opening: adequate. Short neck: no. Thick neck: no Santos present: no DENTAL Dental findings: teeth intact. Additional exam findings: yes. CARDIOVASCULAR Normal cardiovascular observations. PULMONARY Normal pulmonary observations. ABDOMINAL Obese: obesity present. BACK Normal back observations. Other findings: She is on nasal oxygen with no SOB. Had a tracheostomy which was closed. Denied any difficulty swallowing or orthopnea. Using some pillow at night. No CPAP used. No anesthesia history. . II - ANESTHESIA PLAN ASA Score: 3 Anesthetic Plan: epidural The patient is not a current smoker. NPO Status: adequate Beta Kasey Administration of chronic beta kasey medication planned. Monitoring Plan Monitoring plan: standard ASA. Post Procedure Analgesic Plan Postoperative analgesic plan: epidural and multimodal analgesia. Informed Consent Anesthetic risks, benefits, alternatives, personnel and consent discussed: yes. Patient / Responsible Alliance Party agrees to proceed: yes Patient / Surrogate agrees to blood products: Yes Potential Anesthesia issues that may suggest increased risk of complications or contraindication to planned procedure: potential difficult intubation and potential difficult IV access. EPIC CHART REVIEW: ACTIVE PROBLEM LIST COVID19 with history of tracheostomy; long COVID; supplemental O2 requirement History of Tachycardia History of Dvt (Deep Vein Thrombosis) Obesity in History of Depression Family History of Congenital Heart Defect Abnormal Glucose Complicating Sinus Tachycardia care Delivery of By Section PAST MEDICAL HISTORY Diagnosis Date - Anemia - Asthma - C. difficile diarrhea - COVID-19 08/03/2021 on ventilator 40 days - Depression - DVT (deep venous thrombosis) (HCC) right knee-during Covid hospitalization - Eczema - Scarring of lung Covid related - Tachycardia, unspecified post covid PAST SURGICAL HISTORY Procedure Laterality Date - CHEST TUBES-SPECIFY covid treatment - PAST SURGICAL HISTORY OF wisdom teeth - TRACHEOSTOMY PLANNED SEPARATE PROCEDURE during Covid ventilator FAMILY HISTORY Problem Relation Age of Onset - Diabetes Mother - Hypertension Father - No Known Problems Sister - No Known Problems Brother - No Known Problems Brother - Leukemia Maternal Grandmother - Heart Maternal Grandmother - Suicide / Suicidal Behaviors Maternal Grandfather - No Known Problems Paternal Grandmother - No Known Problems Paternal Grandfather Social History Tobacco Use - Smoking status: Never - Smokeless tobacco: Never Vaping Use - Vaping Use: Never used Substance Use Topics - Alcohol use: Not Currently - Drug use: Never perflutren lipid microspheres 1.3 mL in NaCl (PF) 0.9% 10 mL injection (DEFINITY), , INTRAVENOUS, DIRECTED PRN, Praneeth Moreau MD sodium chloride 0.9 % (flush) 10 mL (BD POSIFLUSH), 10 mL, INTRAVENOUS, DIRECTED PRN, Praneeth Moreau MD perflutren lipid microspheres 1.3 mL in NaCl (PF) 0.9% 10 mL injection (DEFINITY), , INTRAVENOUS, DIRECTED PRN, Indira Arevalo MD sodium chloride 0.9 % (flush) 10 mL (BD POSIFLUSH), 10 mL, INTRAVENOUS, DIRECTED PRN, Indira Arevalo MD diphenhydrAMINE (BENADRYL) 25 mg tablet, Take 25 mg by mouth every 6 hours as needed., Disp: , Rfl: , 09/30/2022 venlafaxine ER (EFFEXOR XR) 37.5 mg 24 hr capsule, Take 5 capsules by mouth once daily. (Patient taking differently: Take 37.5 mg by mouth once daily.), Disp: , Rfl: , 10/01/2022 aspirin 81 mg cap, Take 81 mg by mouth once daily., Disp: , Rfl: , 09/30/2022 P (more content not included)... Normal [facility] HISTORY PHYSICALon 2 HISTORY PHYSICAL HNO ID: [id number] Author: Pamela Reyes MD Service: Obstetrics Author Type: Resident Type: HANDP Filed: 10/01/2022 11:08 AM Note Text: Attestation signed by Kevin Capellan MD at 10/01/2022 12:30 PM Attending Note I evaluated the patient and personally participated in the lara components. I agree with the resident's findings and plan as documented and have discussed the case and management of the patient's care with the resident. Primary delivery with LGA baby and with post covid complications. Not currently on lovenox. Plan for delivery with lovenox . BP 104/55 Pulse 109 Temp 36.9 ?C (98.4 ?F) (Oral) Resp 16 Ht 180.3 cm (5' 11) Wt (!) 152.4 kg (336 lb) LMP 01/17/2022 (Within Weeks) SpO2 98% BMI 46.86 kg/m? Signature: Kevin Capellan MD Date: 10/01/2022 Time: 12:30 PM SERVICE DATE: 10/01/2022 SERVICE TIME: 9:10 AM PHYSICAL EXAM MUST BE COMPLETED ON ADMISSION The History and Physical (completed in the past 30 days) has been reviewed and the patient has been examined. The contents accurately reflect the patient's condition with the following additions or revisions since the HANDP was completed. Aleyda Mejía is a 22 year old at 37w4d here for primary for LGA and post-covid complications, including SOB, tachycardia, and DVT during initial hospitalization. She endorses good movement. No VB, no LOF, no contractions. POST DELIVERY CONTRACEPTION: Discussed post-delivery contraception options. Patient received written information about post-delivery contraception options. Patient does not desire post-delivery contraception. Examination indicates no changes. Presentation: Cephalic on BSUS EFW: 7.5-8lbs based on last ultrasound. Current OB plan: Proceed with . Plan of care discussed with: Provider, RN, Patient. This HANDP can be found in the Electronic Medical Record dated 09/28. SIGNATURE: Pamela Reyes MD PATIENT NAME: Aleyda Mejía DATE: 10/01/2022 TIME: 9:10 AM PAGER: [facility] OPERATIVE NOon 10-01-2022 OPERATIVE NO HNO ID: [id number] Author: Pamela Reyes MD Service: Obstetrics Author Type: Resident Type: Operative Report Filed: 10/01/2022 2:42 PM Note Text: Attestation signed by Kevin Capellan MD at 10/01/2022 2:47 PM I was present and scrubbed for the procedure as described. Procedure as described. Primary section with the plan for prophylactic lovenox starting tomorrow. Kevin Capellan Division of Maternal Medicine [facility] OB OPERATIVE/PROCEDURE REPORT LOG ID: [id number] Surgery/Procedure Date: 10/01/2022 Incision/Procedure Start Time: 1:00 PM Incision Close/Procedure End Time: 2:06 PM Surgeon(s)/Proceduralis t(s) and Trolley Collector(s): Surgeon(s) and Role: * Kevin Capellan MD - Primary * Pamela Reyes MD - Resident - Assisting Physician Trolley Collector: Amy Hung PA-C Informed Consent: Informed Consent obtained and on the chart Procedure: Section Gestational Age at Delivery: 37w4d Reason for Delivery Today: PRIMARY Reason for Delivery : Scheduled Section Additional Clinical Indicator(s) for delivery: Other (see comment) Delivery type: , Low Transverse Intrapartum Complications: None Delivery between 24 - 34 weeks?: No Indications for : Maternal Medical Condition Additional Pre-Op Details (if applicable): Aleyda Mejía is a 22 year old at 37w4d admitted for primary for LGA and post-covid complications, including SOB, tachycardia, and DVT during initial hospitalization. Postop Diagnosis: Same as pre-op diagnosis Procedures and Anesthesia: Procedure(s) and Anesthesia Type: * SECTION - Choice - Anesthesia Consult Information for the patient's : José Mejía [[id number]] Type: , Low Transverse Operative Findings: Weight: 3.477 kg (7 lb 10.7 oz) (Filed from Delivery Summary) Sex: male One Minute : 8 Five Minute : 9 Cord Complications: None Additional Findings: Normal uterus, Normal tubes, and Normal ovaries TECHNIQUE: The patient was taken to the operating room where epidural anesthesia was administered and found to be adequate. She was placed in supine position with a left tilt. SCD's were placed. Izquierdo catheter was placed under sterile conditions. She was prepped and draped in the usual sterile fashion for abdominal surgery. Pfannensteil incision was made with the scalpel. Incision was taken down to the fascia with the scalpel, and the fascia was incised in the midline. Incision was extended laterally sharply. Rectus muscles were dissected off the fascia bluntly and sharply and divided in the midline. Peritoneum was entered bluntly and incision was extended superiorly and inferiorly. The bladder blade was then introduced. Hysterotomy was performed in a low transverse fashion with the scalpel. The incision was extended manually in a superolateral fashion. Infant was delivered from a from a cephalic position atraumatically. Cord was clamped and cut, and was handed off to awaiting staff. Cord blood was collected. , A sample of the cord was collected to obtain the pH. Placenta then delivered spontaneously with fundal massage. The uterus was then exteriorized and cleared of clots and debris. The bladder blade was reintroduced. The uterus was closed in Two Layers. The first layer was a running locked stitched of 0-Vicryl. The second layer was in imbricating stitch of 0-Vicryl. Excellent hemostasis was obtained. Uterus was returned to the abdomen. Inspection of the pelvis noted the above findings. The fascia was closed with 0 Vicryl in a running fashion. The subcutaneous tissue was irrigated and made hemostatic with bovie cautery. The subcutaneous tissue was closed with 3-0 Vicryl in a running fashion. The skin was closed with 4-0 Monocryl in a running fashion. SPECIMEN: Cord blood specimen and Cord pH I/O Blood Loss per time range on right. 10/01/22 1240 - 10/01/22 1438 Calculated Blood Loss (mL) Hospital Encounter 729 Total 729 cc URINE OUTPUT: 300 mL IV FLUIDS: 700 mL crystalloid Implantable Devices: NONE Drains: None Complications: None Sponge, lap, and needle counts were correct times two and the patient was taken to the recovery room with stable vital signs after tolerating the procedure well. Plan of care discussed with: Provider, RN, Patient. The attending was present for critical and lara portions of the procedure or immediately available to provide assistance. SIGNATURE: Pamela Reyes MD PATIENT NAME: Aleyda Mejía DATE: October 01, 2022 TIME: 2:38 PM [facility] SARS-CoV-2 RNA Resp Ql GIRISH+p robeon 10-01-2022 SARS-CoV-2 (COVID-19) RNA GIRISH+probe Ql (Resp) COVID 19 RESULT: SARS-CoV-2 (Agent of COVID-19) Not Detected by RT-PCR or equivalent method. This test has been authorized by FDA under an Emergency Use Authorization (EUA). [facility] Comment on above: Performed By: #### 9 [id number] ####[facility] [id number] [address] SURGICAL PATHOLOGYon 022 CASE REPORT [facility] Comment on above: Order Comment: Speci men Type: TISSUE SPECIMEN Ordering Facility: [facility] Address: [address] [place], [place] [id number] Result Comment: Surg ical Pathology Report Case: [id number] Authorizing Provider: Kevin Capellan MD Collected: 10/01/2022 01:13 PM Ordering Location: [place] [address] L&D Received: 10/01/2022 05:20 PM Pathologist: Leslie Lerma MD Specimen: PLACENTA SINGLE Performed By: #### S #### [facility] CLIA [id number] [address] [place] [address] OF [facility] CLINICAL HISTORY post-covid [facility] Comment on above: Order Comment: Speci men Type: TISSUE SPECIMEN Ordering Facility: [facility] Address: [address] [place] [address] Result Comment: Hist ory of COVID with complications, BMI > 40, 37 weeks 4 days, LT-CS, 3.477 kg, Apgars 8, 9. BENIGNO Performed By: #### S #### [facility] CLIA [id number] [address] [place] [address] [place] DIAGNOSIS COMMENT The weight to placental weight ratio is 4.3, significantly lower than average for gestational age (6.9). [facility] Comment on above: Order Comment: Speci men Type: TISSUE SPECIMEN Ordering Facility: [facility] Address: [address] [place], [place] [id number] Performed By: #### S #### [facility] CLIA [id number] [address] [place] [address] OF [place] FINAL DIAGNOSIS [facility] Comment on above: Order Comment: Speci men Type: TISSUE SPECIMEN Ordering Facility: [facility] Address: [address] [place], [place] [id number] Result Comment: A. P lacenta, 37 weeks 4 days, delivery: - Large placenta, weight 808 g, heavier than 97th percentile for gestational age. - Delayed villous maturation with chorangiosis. BENIGNO October 06, 2022 Performed By: #### S #### [facility] CLIA [id number] [address] [place] [address] OF [facility] FINAL PERFORMING LAB Normal [facility] Comment on above: Order Comment: Speci men Type: TISSUE SPECIMEN Ordering Facility: [facility] Address: [address] [place] [address] Result Comment: Diag nostic interpretation performed at [facility], [address] [place] [address] CLIA# [id number] Area Field Person: Bayron Kelley M.D. Performed By: #### S #### [facility] CLIA [id number] [address] [place] [address] GROSS DESCRIPTION Normal [facility] Comment on above: Order Comment: Speci men Type: TISSUE SPECIMEN Ordering Facility: [facility] Address: [address] [place] [address] Result Comment: A. Sánchez NAVARRO SINGLE Received in formalin labeled placenta is single placental disc with attached umbilical cord and membranes. The kee-white umbilical cord measures 40 cm in length by 1.2 cm in maximum diameter. It shows normal coiling (5 coils) and inserts velamentous for a length of 3.2 cm in the membranes. It contains 3 vessels on cut section. The translucent glistening membranes attach normally at disc margin for 100% of circumference. The area of membrane rupture cannot be determined due to the membranes being excessively torn. The oval trimmed placental disc weighs 808 grams and measures 19.2 x 18.2 x 3.8 cm. The surface is blue-purple with normal dispersion of chorionic plate vessels. The maternal surface appears intact. Serial sectioning through placental disc at 1 cm intervals reveals spongy dark red parenchyma with no grossly identifiable lesions. Search Engine Optimization Manager sections are submitted as follows: [id number] cord, end, and 2 membrane rolls, A2 umbilical cord, placental end, and chorionic plate section near cord insertion, A3 central placenta, full-thickness section, A4 placenta, full-thickness section. BF October 04, 2022 12:38 PM Gross examination performed at [facility], [address] [address] [place] [id number] CLIA # [id number] Performed By: #### S #### [facility] CLIA [id number] [address] [place] MICROSCOPIC DESCRIPTION Normal [facility] Comment on above: Order Comment: Speci men Type: TISSUE SPECIMEN Ordering Facility: [facility] Address: [address] [place] [address] Result Comment: Thre e-vessel umbilical cord with no abnormalities membranes with no abnormalities Membranous decidua with laminar decidual necrosis Chorionic plate with pigment laden macrophages Chorionic plate vessels with no abnormalities Stem villi with no abnormalities Terminal villi with delayed villous maturation and chorangiosis; multiple small foci of villous stromal/vascular karyorrhexis; nRBCs 1 /10 HPF Intervillous space with no abnormalities Decidua basalis with no abnormalities. No maternal spiral arteries sampled in decidua basalis. No inflammatory changes characteristic of COVID placentitis are identified. Performed By: #### S #### [facility] CLIA [id number] [address] [place] Zana 09-29-2022 CNPN Telephone (CARMEN) ALEYDA MEJÍA ([id number]) 2000 F Date Time Provider Department 09/29/22 COREY MICHAELS During your visit today, we recorded the following information about you: Corey Michaels MD 09/29/2022 3:12 PM Signed BMI 48 s/p COVID 08/20 requiring long ICU stay, respiratory failure, bilateral chest tubes for pneumothorax, trach, LTAC. Trach removed 10/20. Currently home oxygen dependent 3L [place]. DVT but no Hx PE so not on blood thinners (except ASA). One flight of stairs with oxygen, has difficulty without O2. No difficulty laying flat, GERD well controlled. Seeing cardiology for persistent tachycardia. Allergies As of Date: 09/29/2022 Noted Allergy Reaction ALCOHOL 03/11/2022 2 - Rash Comments: When she drinks alcohol. No issues with Isopropyl alcohol on skin Date Reviewed: 09/28/2022 Reviewed by: Marina Aguillon MA - Fully Assessed Reason for Visit: Anesthesia Consult [3914] Cmt: Long COVID with respiratory complications. Home oxygen dependant, supermorbid obesity. Prescriptions as of 09/30/2022 - diphenhydrAMINE (BENADRYL) 25 mg tablet Take 25 mg by mouth every 6 hours as needed. - OXYGEN, HOME THERAPY, Inhale as instructed as directed. - venlafaxine ER (EFFEXOR XR) 37.5 mg 24 hr capsule Take 5 capsules by mouth once daily. - aspirin 81 mg cap Take 81 mg by mouth once daily. - PNV no.95/ferrous fum/folic ac ( ORAL) Take by mouth. - metoprolol tartrate, short acting, (LOPRESSOR) 25 mg tablet Take 25 mg by mouth twice daily. - venlafaxine HCl (EFFEXOR ORAL) Take 150 mg by mouth once daily. - BIOTIN ORAL Take by mouth. - ALBUTEROL INHALATION Inhale as instructed. Facility-Administered Medications as of 09/30/2022 - perflutren lipid microspheres 1.3 mL in NaCl (PF) 0.9% 10 mL injection (DEFINITY) - sodium chloride 0.9 % (flush) 10 mL (BD POSIFLUSH) - perflutren lipid microspheres 1.3 mL in NaCl (PF) 0.9% 10 mL injection (DEFINITY) - sodium chloride 0.9 % (flush) 10 mL (BD POSIFLUSH) Problem List As Of Date 09/29/2022 Noted Resolved COVID19 with history of tracheostomy; long COVI*03/11/2022 History of tachycardia [Z87.898] 03/11/2022 History of DVT (deep vein thrombosis) [Z86.718] 03/11/2022 Obesity in [O99.210] 03/11/2022 History of depression [Z86.59] 03/11/2022 Nausea and vomiting during [O21.9] 03/11/2022 06/01/2022 Family history of congenital heart defect [Z82.*03/11/2022 Patient request for diagnostic testing [Z01.89] 03/11/2022 06/01/2022 Abnormal glucose complicating [O99.81*07/27/2022 Sinus tachycardia [R00.0] 08/06/2022 care [O09.93] 08/24/2022 Encounter Status:Closed by COREY MICHAELS on 09/30/22 [facility] URINE OB DIP B/Oon 2 Glucose Ql (U) Negative Neg mg/dL [facility] Protein.monoclonal (U) [Mass/Vol] Negative Neg mg/dL [facility] Influenza virus A and B and SARS-CoV-2 (COVID-19) Ag panel - Upper respiratory specimOrdered By: Dr. Nicholson on 09-25-2022 SARS-CoV-2 (COVID-19) RNA GIRISH+probe Ql (Resp) [facility] OBSTETRIC ULTRASOUND WHIon 1 11-21-2021 [facility] URINE OB DIP B/Oon 2 Glucose Ql (U) Negative Neg mg/dL [facility] Protein.monoclonal (U) [Mass/Vol] trace Neg mg/dL [facility] URINE OB DIP B/Oon 2 Glucose Ql (U) Negative Neg mg/dL [facility] Protein.monoclonal (U) [Mass/Vol] Negative Neg mg/dL [facility] Basophil percentageOrdered B y: Santa Weinstein on 08-31-2022 Chloride [Moles/Vol] 106 mmol/L 98-107 [facility] Glucose [Mass/Vol] 87 mg/dL 74-106 [facility] Potassium [Moles/Vol] 4.4 mmol/L 3.5-5.1 [facility] Sodium [Moles/Vol] 139 mmol/L 136-145 [facility] Dilute Chilo's viper venom timeOrdered By: Santa Weinstein on 08-31-2022 dRVVT Coag (PPP) [Time] 28.9 s 0.0-47.0 [facility] INR in Blood by Coagulation assayOrdered By: Santa Weinstein on 08-31-2022 INR Coag (Bld) [Relative time] 1.0 {INR} [facility] Laboratory - Chemistry and C hemistry - challengeOrdered By: Santa Weinstein on 08-31-2022 CO2 [Moles/Vol] 27.0 mmol/L 21.0-32.0 [facility] Natriuretic peptide B (Bld) [Mass/Vol] 3.2 pg/mL 0-100 [facility] Urea nitrogen/Creatinine [Mass ratio] 21.4 mg/mg 10-20 [facility] Laboratory - CoagulationOrde red By: Santa Weinstein on 08-31-2022 aPTT Coag (Bld) [Time] 26.7 s 24.1-36.2 [facility] PT Coag (PPP) [Time] 13.2 s 11.7-14.9 [facility] No Panel InformationOrdered By: Santa Weinstein on 08-31-2022 D-Dimer Quantitative (PE/DVT) 0.58 FEU/ug/m 0.27-0.49 [facility] Comment on above: D-Dimer ELEVATED (>0 .49): Additional studies and clinicalassessments are indicated to conclude diagnosis of:Deep Vein Thrombosis (DVT) or Pulmonary Embolism (PE) Estimated GFR (MDRD) Amer 172 mL/min >60 [facility] Comment on above: GFR Calc Estimated GFR (MDRD) Non-Af Amer 142 mL/min >60 [facility] Comment on above: Non- GFR Calc Factor V Leiden Mutation Comment . [facility] Comment on above: Result: c.1601G>A (p .[id number]) - Not DetectedThis result is not associated with an increased risk for venousthromboembolism. See Additional Clinical Information andComments.Additional Clinical Information:Venous thromboembolism is a multifactorial diseaseinfluenced by genetic, environmental, and circumstantialrisk factors. The c.1601G>A (p. Pap734Gaj) variant in theF5 gene, commonly referred to as Factor V Leiden, is agenetic risk factor for venous thromboembolism.Heterozygous carriers of this variant have a 6- to 8-foldincreased risk for venous thromboembolism. Individualshomozygous for this variant (ie, with a copy of the varianton each chromosome) have an approximately 80-fold increasedrisk for venous thromboembolism. Individuals who carry corinne c.*97G>A variant in the F2 gene and Factor V Leiden havean approximately 20-fold increased risk for venousthromboembolism. Risks are likely to be even higher in morecomplex genotype combinations involving the F2 c.*97G>Avariant and Factor V Leiden (PMID: 96880150). Additionalrisk factors include but are not limited to: deficiency ofprotein C, protein S, or antithrombin III, age, male sex,personal or family history of deep vein thromboembolism,smoking, surgery, prolonged immobilization, malignantneoplasm, tamoxifen treatment, raloxifene treatment, oralcontraceptive use, hormone replacement therapy, andpregnancy. Management of thrombotic risk and thromboticevents should follow established guidelines and fit theclinical circumstance. This result cannot predict theoccurrence or recurrence of a thrombotic event.Comment:Genetic counseling is recommended to discuss thepotential clinical implications of positive results, aswell as recommendations for testing family members.Genetic Coordinators are available for health careproviders to discuss results at [phone]).Test Details:Variant Analyzed: c.1601G>A (p. [id number]), referred toas Factor V LeidenMethods/Limitations:DNA analysis of the F5 gene (NM_000130.5) was performedby PCR amplification followed by restriction enzymeanalysis. The diagnostic sensitivity is >99%. Results mustbe combined with clinical information for the most accurateinterpretation. Molecular-based testing is highly accurate,but as in any laboratory test, diagnostic errors may occur.False positive or false negative results may occur forreasons that include genetic variants, blood transfusions,bone marrow transplantation, somatic or tissue-specificmosaicism, mislabeled samples, or erroneous representationof family relationships.This test was developed and its performance characteristicsdetermined by [facility]. It has not been cleared orapproved by the Food and Drug Administration.References:Awa S, Sydni AK, Lior R, Carine WW, Juan David JH; [facility]ITALProfessional Practice and Guidelines Committee. Addendum:[employer] consensus statement onfactor V Leiden mutation testing. Tam[employer] Med. 2020Jan 02.doi: 10.1038/z75431-387-00960-o. PMID: 58003285.Yong CONRAD. Factor V Leiden Thrombophilia. 1998March 13[Updated 2017Nov 03]. In: Alireza MP, Yi HH, Josefina RA,et al., editors. Renee(Andie) [Internet]. [place] ([place]):[facility]; 2093-2613. Availablefrom: https://www.ncbi.nlm.nih.gov/books/NYR8642/Javier S, Sydni AK, Herve X, Deon B, Logan EB, Franca P,Jose CS; [facility] Laboratory Ppa Teacher Committee.Venous thromboembolism laboratory testing (factor V Leidenand factor II c.*97G>A), 2018 update: a technical standardof the [employer] and [employer]omics(ACMG). [employer] Med. 2017;20(12):5876-9369. doi:10.1038/v10969-113-7494-c. Epub 2017Aug 04. PMID: 95200917.Estefania Hyatt, PhD, Nora Locke, PhDSpenser Clayton, PhD, Regan Magana, PhD, Nirnajan Dao, PhD, FACBruce Chavez, PhD, Ana Hernandez, PhD, Norman Villegas, PhD, [facility] Platelet poor plasma antithr ombin actual/normal ratio by chromogenic method (relativeOrdered By: Santa Weinstein on 08-31-2022 Antithrombin actual/normal Chromogenic method (PPP) [Rel catalytic activity/Vol] 113 % 75-135 [facility] Comment on above: Direct Xa inhibitor anticoagulants such as rivaroxaban,apixaban and edoxaban will lead to spuriously elevatedantithrombin activity levels possibly masking a deficiency. Protein C antigen assayOrder ed By: Santa Weinstein on 08-31-2022 Protein C Ag actual/normal IA (PPP) [Relative mass conc] 118 % 60-150 [facility] Comment on above: Performed at: [address] [id number] Director: Calista Villarreal MD, Phone: [phone] at: [facility] [id number] [place], [place] [id number] Director: Amador Lemus [facility], Phone: [phone] Protein S measurement in allan telet poor plasma by coagulation assay (units/volume)Ordered By: Santa Weinstein on 08-31-2022 Protein S Coag Qn (PPP) 68 % 60-150 [facility] Comment on above: This test was develo ped and its performance characteristicsdetermined by [facility]. It has not been cleared orapproved by the Food and Drug Administration. Protein S, freeOrdered By: Lori Weinstein on 08-31-2022 Protein S Free Ag IA Qn (PPP) 55 % 61-136 [facility] Comment on above: A deficiency of free protein S antigen (FPS), eithercongenital or acquired, increases the risk ofthromboembolism. Acquired FPS deficiency is more commonthan congenital deficiency. Acquired deficiency can occuras a result of vitamin K deficiency or antagonism, severehepatic disorders (hepatitis, cirrhosis, etc.), nephroticsyndrome, inflammatory bowel disease, certainchemotherapeutic agents, L-asparaginse therapy, sepsis,disseminated intravascular coagulation (DIC) and acutethrombosis. FPS values decrease with normal , andare also dependent on age, sex and hormone status. FPSvalues tend to be lower in a younger age group and lower inwomen than in men. Levels may be decreased inpre-menopausal women on oral contraceptive agents. Levelsmay be decreased in patients with polycythemia vera, sicklecell disease and essential thombocythemia. Repeatevaluation on a new plasma sample to confirm or refute thisresult should be considered, after ruling out acquiredcauses, depending on the clinical scenario. Serum or plasma calcium aster urement (mass/volume)Ordered By: Santa Weinstein on 08-31-2022 Calcium [Mass/Vol] 9.7 mg/dL 8.5-10.1 [facility] Serum or plasma creatinine m easurement (mass/volume)Ordered By: Santa Weinstein on 08-31-2022 Creatinine [Mass/Vol] 0.56 mg/dL 0.55-1.02 [facility] Comment on above: The validity of the calculated GFR & GFRAA in patients over 70 years has not been determined. Clinical correlation is essential. Serum or plasma urea nitroge n measurement (mass/volume)Ordered By: Santa Weinstein on 08-31-2022 Urea nitrogen [Mass/Vol] 12 mg/dL 7-18 [facility] Thin prep Papanicolaou smear with manual screeningOrdered By: Santa Weinstein on 08-31-2022 Thin prep Papanicolaou smear with manual screening 6 5-15 [facility] Thin prep Papanicolaou smear with manual screening 29.0 sec 0.0-47.6 [facility] Thin prep Papanicolaou smear with manual screening 1.05 Ratio 0.00-1.34 [facility] Thin prep Papanicolaou smear with manual screening 28.2 sec 0.0-51.9 [facility] Thin prep Papanicolaou smear with manual screening Comment: . [facility] Comment on above: No lupus anticoagula nt was detected. Thrombin time in platelet po or plasmaOrdered By: Santa Weinstein on 08-31-2022 Thrombin time Coag (PPP) [Time] 16.5 sec 0.0-23.0 [facility] URINE OB DIP B/Oon 2 Glucose Ql (U) Negative Neg mg/dL [facility] Protein.monoclonal (U) [Mass/Vol] Negative Neg mg/dL [facility] Laboratory - Microbiology an d Antimicrobial susceptibilityOrdered By: Dr. Mendoza on 08-05-2022 SARS-CoV-2 (COVID-19) RNA GIRISH+probe Ql (Unsp spec) Detected Not Detect [facility] Comment on above: Normal Reference Ran ge: Not DetectedMethod:(RT-PCR) real-time reverse transcriptase PCRLuminex RUFUS Instrument*The Food and Drug Administration (FDA) has issued an Emergency Use Authorization (EAU) for the RUFUS SARS-CoV-2 Assay for the rapid detection of the virus that causes COVID-19. This test has been validated, but the FDAs independent review of this validation is pending.*Negative results do not preclude infection and should not be used as the sole basis for treatment or patient management. Optimum specimen types and timing for peak viral levels during infections caused by SARS-CoV-2 have not been determined. Collection of multiple specimens from the same patient may be necessary to detect the virus. The possibility of a false negative result should be considered if the patient has clinical presentation or has had recent exposure. Laboratory - Microbiology an d Antimicrobial susceptibilityon 08-05-2022 S. pyogenes Ag IA Ql (Unsp spec) Negative [facility] No Panel Informationon 08-05 Influenza Types A,B Rapid (Clinic) Negative [facility] OBSTETRIC ULTRASOUND WHIon 0 07-27-2022 [facility] URINE OB DIP B/Oon 2 Glucose Ql (U) Negative Neg mg/dL [facility] Protein.monoclonal (U) [Mass/Vol] Negative Neg mg/dL [facility] Absolute lymphocyte counton 07-03-2022 Lymphocytes Auto (Unsp spec) [#/Vol] 2.38 10*3/uL 0.83-4.51 [facility] Work Phone: Basophil percentageon 2021 Basophils/100 WBC (Bld) 0.4 % 0-1 [facility] Work Phone: Chloride [Moles/Vol] 107 mmol/L 98-107 [facility] Work Phone: Eosinophils/100 WBC (Bld) 2.0 % 0-5 [facility] Work Phone: Glucose [Mass/Vol] 93 mg/dL 74-106 [facility] Work Phone: Neutrophils (Bld) [#/Vol] 5.8 10*3/uL 2.0-7.7 [facility] Work Phone: Neutrophils/100 WBC (Bld) 64.0 % 47-70 [facility] Work Phone: Potassium [Moles/Vol] 4.0 mmol/L 3.5-5.1 [facility] Work Phone: Comment on above: Slight Hemolysis, Re sult may be falsely increased. Sodium [Moles/Vol] 138 mmol/L 136-145 [facility] Work Phone: WBC (Bld) [#/Vol] 9.1 10*3/uL 4.4-11.0 [facility] Work Phone: Blood erythrocytes count (nu mber/volume)on 07-03-2022 RBC (Bld) [#/Vol] 4.42 10*6/uL 4.2-5.4 [facility] Work Phone: Blood hemoglobin measurement (mass/volume)on 07-03-2022 Hemoglobin (Bld) [Mass/Vol] 13.1 g/dL 12.0-15.0 [facility] Work Phone: Blood lymphocytes/100 leukoc yteson 07-03-2022 Lymphocytes/100 WBC (Bld) 26.3 % 19-41 [facility] Work Phone: Blood monocytes/100 leukocyt eson 07-03-2022 Monocytes/100 WBC (Bld) 6.4 % 0-10 [facility] Work Phone: Blood platelet mean volumeon 07-03-2022 Platelet mean volume (Bld) [Entitic vol] 10.8 fL 6.2-12.0 [facility] Work Phone: Determination of erythrocyte mean corpuscular volume (MCV)on 07-03-2022 MCV (RBC) [Entitic vol] 86.4 fL 81-99 [facility] Work Phone: Hematocrit Auto (Bld) [Volum e fraction]on 07-03-2022 Hematocrit (Bld) [Volume fraction] 38.2 % 37-47 [facility] Work Phone: Laboratory - Chemistry and C hemistry - challengeon 07-03-2022 CO2 [Moles/Vol] 23.0 mmol/L 21.0-32.0 [facility] Work Phone: Natriuretic peptide B (Bld) [Mass/Vol] 3.8 pg/mL 0-100 [facility] Work Phone: Urea nitrogen/Creatinine [Mass ratio] 12.3 mg/mg 10-20 [facility] Work Phone: Laboratory - Hematology and Cell countson 07-03-2022 Erythrocyte distribution width (RBC) [Entitic vol] 42.5 fL 35.1-43.9 [facility] Work Phone: Erythrocyte distribution width (RBC) [Ratio] 13.6 % 11.6-14.6 [facility] Work Phone: Immature granulocytes/100 WBC (Bld) 0.900 % 0.0-0.9 [facility] Work Phone: Comment on above: IG% - Immature Granu locytes (promyelocytes, myelocytes and metamyelocytes) > 1% indicates that a LEFT SHIFT is Present. MCH (RBC) [Entitic mass] 29.6 pg 27.0-32.0 [facility] Work Phone: Nucleated RBC/100 WBC (Bld) [Ratio] 0 % 0-5 [facility] Work Phone: MCHC Auto (RBC) [Mass/Vol]on 07-03-2022 MCHC (RBC) [Mass/Vol] 34.3 g/dL 32-36 [facility] Work Phone: No Panel Informationon 07-03 D-Dimer Quantitative (PE/DVT) 0.54 FEU/ug/m 0.27-0.49 [facility] Work Phone: Comment on above: CRITICAL VALUE VERIF IED. CALLED TO [id number] [employer].RESULTS READ BACK BY SAME . D-Dimer ELEVATED (>0.49): Additional studies and clinicalassessments are indicated to conclude diagnosis of:Deep Vein Thrombosis (DVT) or Pulmonary Embolism (PE) Estimated Creatinine Clearance Calc 133.96 ml/min [facility] Work Phone: Estimated GFR (MDRD) Amer 127 mL/min >60 [facility] Work Phone: Comment on above: GFR Calc Estimated GFR (MDRD) Non-Af Amer 105 mL/min >60 [facility] Work Phone: Comment on above: Non- GFR Calc Troponin I High Sensitivity < 3 pg/mL 3.0-54.0 [facility] Work Phone: Comment on above: Please Note: New Joselyn t Units and Gender Specific Reference Ranges. For more information see Policy Stat Procedure [place] High Sensitivity Troponin (TNIH) and attachments. Platelets bldon 07-03-2022 Platelets (Bld) [#/Vol] 203 10*3/uL 150-450 [facility] Work Phone: Serum or plasma calcium aster urement (mass/volume)on 07-03-2022 Calcium [Mass/Vol] 8.8 mg/dL 8.5-10.1 oste r [facility] Work Phone: Serum or plasma creatinine m easurement (mass/volume)on 07-03-2022 Creatinine [Mass/Vol] 0.73 mg/dL 0.55-1.02 Aj ster [facility] Work Phone: Comment on above: The validity of the calculated GFR & GFRAA in patients over 70 years has not been determined. Clinical correlation is essential. Serum or plasma urea nitroge n measurement (mass/volume)on 07-03-2022 Urea nitrogen [Mass/Vol] 9 mg/dL 7-18 [facility] Work Phone: Thin prep Papanicolaou smear with manual screeningon 07-03-2022 Thin prep Papanicolaou smear with manual screening 8 5-15 [facility] Work Phone: URINE OB DIP B/Oon 2 Glucose Ql (U) Negative Neg mg/dL [facility] Protein.monoclonal (U) [Mass/Vol] Negative Neg mg/dL [facility] Laboratory - Microbiology an d Antimicrobial susceptibilityon 05-07-2022 SARS-CoV-2 (COVID-19) RNA GIRSIH+probe Ql (Unsp spec) Not detected Not Detect [facility] Work Phone: Comment on above: Normal Reference Ran ge: Not DetectedMethod:(RT-PCR) real-time reverse transcriptase PCRLuminex RUFUS Instrument*The Food and Drug Administration (FDA) has issued an Emergency Use Authorization (EAU) for the RUFUS SARS-CoV-2 Assay for the rapid detection of the virus that causes COVID-19. This test has been validated, but the [facility] independent review of this validation is pending.*Negative results do not preclude infection and should not be used as the sole basis for treatment or patient management. Optimum specimen types and timing for peak viral levels during infections caused by SARS-CoV-2 have not been determined. Collection of multiple specimens from the same patient may be necessary to detect the virus. The possibility of a false negative result should be considered if the patient has clinical presentation or has had recent exposure. S. pyogenes Ag IA Ql (Unsp spec) Negative [facility] Work Phone: URINE OB DIP B/Oon 2 Glucose Ql (U) Negative Neg mg/dL [facility] Protein.monoclonal (U) [Mass/Vol] Negative Neg mg/dL [facility] [employer] WHIon [facility] URINE OB DIP B/Oon 2 Glucose Ql (U) Negative Neg mg/dL [facility] Protein.monoclonal (U) [Mass/Vol] Negative Neg mg/dL [facility] Absolute lymphocyte counton 02-01-2022 Lymphocytes Auto (Unsp spec) [#/Vol] 1.88 10*3/uL 0.83-4.51 [facility] Work Phone: Basophil percentageon 2021 Basophils/100 WBC (Bld) 0.4 % 0-1 [facility] Work Phone: Bilirubin [Mass/Vol] 1.10 mg/dL 0.20-1.00 [facility] Work Phone: Comment on above: For patients on eltr ombopag therapy, use of Dimension [place] TBIL is not recommended. Chloride [Moles/Vol] 105 mmol/L 98-107 [facility] Work Phone: Eosinophils/100 WBC (Bld) 2.8 % 0-5 [facility] Work Phone: Glucose [Mass/Vol] 88 mg/dL 74-106 [facility] Work Phone: Neutrophils (Bld) [#/Vol] 6.4 10*3/uL 2.0-7.7 [facility] Work Phone: Neutrophils/100 WBC (Bld) 70.0 % 47-70 [facility] Work Phone: Potassium [Moles/Vol] 4.2 mmol/L 3.5-5.1 [facility] Work Phone: Protein [Mass/Vol] 7.9 g/dL 6.4-8.2 [facility] Work Phone: Sodium [Moles/Vol] 138 mmol/L 136-145 [facility] Work Phone: WBC (Bld) [#/Vol] 9.1 10*3/uL 4.4-11.0 [facility] Work Phone: [phone] Blood erythrocytes count (nu mber/volume)on 02-01-2022 RBC (Bld) [#/Vol] 5.12 10*6/uL 4.2-5.4 [facility] Work [facility]: Blood hemoglobin measurement (mass/volume)on 02-01-2022 Hemoglobin (Bld) [Mass/Vol] 13.6 g/dL 12.0-15.0 [facility] Work Phone: Blood lymphocytes/100 leukoc yteson 02-01-2022 Lymphocytes/100 WBC (Bld) 20.7 % 19-41 [facility] Work Phone: Blood monocytes/100 leukocyt eson 02-01-2022 Monocytes/100 WBC (Bld) 5.8 % 0-10 [facility] Work Phone: Blood platelet mean volumeon 02-01-2022 Platelet mean volume (Bld) [Entitic vol] 11.6 fL 6.2-12.0 [facility] Work Phone: Determination of erythrocyte mean corpuscular volume (MCV)on 02-01-2022 MCV (RBC) [Entitic vol] 82.6 fL 81-99 [facility] Work Phone: Hematocrit Auto (Bld) [Volum e fraction]on 02-01-2022 Hematocrit (Bld) [Volume fraction] 42.3 % 37-47 [facility] Work Phone: Laboratory - Chemistry and C hemistry - challengeon 02-01-2022 ALP [Catalytic activity/Vol] 62 U/L 45-117 [facility] Work Phone: ALT [Catalytic activity/Vol] 26 U/L 13-56 [facility] Work Phone: CO2 [Moles/Vol] 26.0 mmol/L 21.0-32.0 [facility] Work Phone: Free T4 [Mass/Vol] 0.86 ng/dL 0.76-1.46 [facility] Work Phone: Globulin (S) [Mass/Vol] 4.0 g/dL 2.2-4.2 [facility] Work Phone: Urea nitrogen/Creatinine [Mass ratio] 12.0 mg/mg 10-20 [facility] Work Phone: Laboratory - Hematology and Cell countson 02-01-2022 Erythrocyte distribution width (RBC) [Entitic vol] 42.4 fL 35.1-43.9 [facility] Work Phone: Erythrocyte distribution width (RBC) [Ratio] 14.2 % 11.6-14.6 [facility] Work Phone: Immature granulocytes/100 WBC (Bld) 0.300 % 0.0-0.9 [facility] Work Phone: Comment on above: IG% - Immature Granu locytes (promyelocytes, myelocytes and metamyelocytes) > 1% indicates that a LEFT SHIFT is Present. MCH (RBC) [Entitic mass] 26.6 pg 27.0-32.0 [facility] Work Phone: Nucleated RBC/100 WBC (Bld) [Ratio] 0 % 0-5 [facility] Work Phone: MCHC Auto (RBC) [Mass/Vol]on 02-01-2022 MCHC (RBC) [Mass/Vol] 32.2 g/dL 32-36 [facility] Work Phone: No Panel Informationon 02-01 Estimated GFR (MDRD) Amer 98 mL/min >60 [facility] Work Phone: Comment on above: GFR Calc Estimated GFR (MDRD) Non-Af Amer 81 mL/min >60 [facility] Work Phone: Comment on above: Non- GFR Calc Thyroid Stimulating Hormone (TSH) 2.61 uIU/mL 0.358-3.74 [facility] Work Phone: Platelets bldon 02-01-2022 Platelets (Bld) [#/Vol] 291 10*3/uL 150-450 [facility] Work Phone: Serum or plasma albumin aster urement (mass/volume)on 02-01-2022 Albumin [Mass/Vol] 3.9 g/dL 3.2-5.0 [facility] Work Phone: Serum or plasma albumin/glob ulin mass ratioon 02-01-2022 Albumin/Globulin [Mass ratio] 1.0 {ratio} 0.9-2.4 [facility] Work Phone: Serum or plasma calcium aster urement (mass/volume)on 02-01-2022 Calcium [Mass/Vol] 9.3 mg/dL 8.5-10.1 [facility] Work Phone: Serum or plasma creatinine m easurement (mass/volume)on 02-01-2022 Creatinine [Mass/Vol] 0.92 mg/dL 0.55-1.02 [facility] Work Phone: Comment on above: The validity of the calculated GFR & GFRAA in patients over 70 years has not been determined. Clinical correlation is essential. Serum or plasma urea nitroge n measurement (mass/volume)on 02-01-2022 Urea nitrogen [Mass/Vol] 11 mg/dL 7-18 [facility] Work Phone: Thin prep Papanicolaou smear with manual screeningon 02-01-2022 Thin prep Papanicolaou smear with manual screening 18 U/L 15-37 [facility] Work Phone: Thin prep Papanicolaou smear with manual screening 7 5-15 [facility] Work Phone: Blood hemoglobin measurement (mass/volume)on 11-17-2021 Hemoglobin (Bld) [Mass/Vol] 11.3 g/dL 12.0-15.0 [facility] Work Phone: Hematocrit Auto (Bld) [Volum e fraction]on 11-17-2021 Hematocrit (Bld) [Volume fraction] 36.4 % 37-47 [facility] Work Phone: Absolute lymphocyte counton 11-11-2021 Lymphocytes Auto (Unsp spec) [#/Vol] 1.50 10*3/uL 0.83-4.51 [facility] Work Phone: Basophil percentageon 2021 Basophil percentage 5.1 mg/dL 2.5-4.9 [facility] Work Phone: Basophils/100 WBC (Bld) 0.6 % 0-1 [facility] Work Phone: Bilirubin [Mass/Vol] 0.60 mg/dL 0.20-1.00 [facility] Work Phone: Comment on above: For patients on eltr ombopag therapy, use of Dimension [place] TBIL is not recommended. Chloride [Moles/Vol] 106 mmol/L 98-107 [facility] Work Phone: Eosinophils/100 WBC (Bld) 4.3 % 0-5 [facility] Work Phone: Glucose [Mass/Vol] 91 mg/dL 74-106 [facility] Work Phone: Comment on above: Please note revised GLUCOSE reference range effective 2017. Neutrophils (Bld) [#/Vol] 3.0 10*3/uL 2.0-7.7 [facility] Work Phone: Neutrophils/100 WBC (Bld) 56.1 % 47-70 [facility] Work Phone: Potassium [Moles/Vol] 3.6 mmol/L [facility].5[facility]5.1 [facility]: Protein [Mass/Vol] 6.8 g/dL 6.4-8.2 [facility] Work Phone: [phone] Sodium [Moles/Vol] 141 mmol/L 136-145 [facility] Work Phone: WBC (Bld) [#/Vol] 5.4 10*3/uL 4.4-11.0 [facility] Work Phone: Blood erythrocytes count (nu mber/volume)on 11-11-2021 RBC (Bld) [#/Vol] 4.14 10*6/uL 4.2-5.4 [facility] Work Phone: [phone] Blood lymphocytes/100 leukoc yteson 11-11-2021 Lymphocytes/100 WBC (Bld) 27.8 % 19-41 [facility] Work Phone: [phone] Blood monocytes/100 leukocyt eson 11-11-2021 Monocytes/100 WBC (Bld) 10.6 % 0-10 [facility] Work Phone: [phone] Blood platelet mean volumeon 11-11-2021 Platelet mean volume (Bld) [Entitic vol] 10.2 fL 6.2-12.0 [facility] Work Phone: Determination of erythrocyte mean corpuscular volume (MCV)on 11-11-2021 MCV (RBC) [Entitic vol] 83.1 fL 81-99 [facility] Work Phone: Laboratory - Chemistry and C hemistry - challengeon 11-11-2021 ALP [Catalytic activity/Vol] 40 U/L 45-117 [facility] Work Phone: ALT [Catalytic activity/Vol] 57 U/L 13-56 [facility] Work Phone: CO2 [Moles/Vol] 27.0 mmol/L 21.0-32.0 [facility] Work Phone: Globulin (S) [Mass/Vol] 3.6 g/dL 2.2-4.2 [facility] Work Phone: Magnesium [Mass/Vol] 2.0 mg/dL 1.6-2.6 [facility] Work Phone: Urea nitrogen/Creatinine [Mass ratio] 17.6 mg/mg 10-20 [facility] Work Phone: Laboratory - Hematology and Cell countson 11-11-2021 Erythrocyte distribution width (RBC) [Entitic vol] 42.5 fL 35.1-43.9 [facility] Work Phone: Erythrocyte distribution width (RBC) [Ratio] 14.1 % 11.6-14.6 [facility] Work Phone: Immature granulocytes/100 WBC (Bld) 0.600 % 0.0-0.9 [facility] Work Phone: Comment on above: IG% - Immature Granu locytes (promyelocytes, myelocytes and metamyelocytes) > 1% indicates that a LEFT SHIFT is Present. MCH (RBC) [Entitic mass] 26.1 pg 27.0-32.0 [facility] Work Phone: Nucleated RBC/100 WBC (Bld) [Ratio] 0 % 0-5 [facility] Work Phone: MCHC Auto (RBC) [Mass/Vol]on 11-11-2021 MCHC (RBC) [Mass/Vol] 31.4 g/dL 32-36 [facility] Work Phone: No Panel Informationon 11-11 Estimated Creatinine Clearance Calc 155.69 ml/min [facility] Work Phone: Estimated GFR (MDRD) Amer 192 mL/min >60 [facility] Work Phone: Comment on above: GFR Calc Estimated GFR (MDRD) Non-Af Amer 159 mL/min >60 [facility] Work Phone: Comment on above: Non- GFR Calc Platelets bldon 11-11-2021 Platelets (Bld) [#/Vol] 260 10*3/uL 150-450 [facility] Work Phone: Serum or plasma albumin aster urement (mass/volume)on 11-11-2021 Albumin [Mass/Vol] 3.2 g/dL 3.2-5.0 [facility] Work Phone: Serum or plasma albumin/glob ulin mass ratioon 11-11-2021 Albumin/Globulin [Mass ratio] 0.9 {ratio} 0.9-2.4 [facility] Work Phone: Serum or plasma calcium aster urement (mass/volume)on 11-11-2021 Calcium [Mass/Vol] 9.0 mg/dL 8.5-10.1 [facility] Work Phone: Serum or plasma creatinine m easurement (mass/volume)on 11-11-2021 Creatinine [Mass/Vol] 0.51 mg/dL 0.55-1.02 [facility] Work Phone: Comment on above: The validity of the calculated GFR & GFRAA in patients over 70 years has not been determined. Clinical correlation is essential. Serum or plasma urea nitroge n measurement (mass/volume)on 11-11-2021 Urea nitrogen [Mass/Vol] 9 mg/dL 7-18 [facility] Work Phone: Thin prep Papanicolaou smear with manual screeningon 11-11-2021 Thin prep Papanicolaou smear with manual screening 25 U/L 15-37 [facility] Work Phone: Thin prep Papanicolaou smear with manual screening 8 5-15 [facility] Work Phone: CHEM 7 (LYTES,BUN,CREA,GLUC) on 11-09-2021 Anion gap [Moles/Vol] 15 mmol/L Normal 7-17 [facility] Comment on above: Performed By: #### C HM7, MGO ####[facility] (DEFAULT)[address] [place] [address] Chloride [Moles/Vol] 104 mmol/L Normal 98-108 [facility] Comment on above: Performed By: #### C HM7, MGO ####[facility] (DEFAULT)[address] [place] [address] CO2 [Moles/Vol] 25 mmol/L Normal 21-31 [facility] Comment on above: Performed By: #### C HM7, MGO ####[facility] (DEFAULT)[address] [place] [address] Creatinine [Mass/Vol] 0.52 mg/dL Normal 0.50-1.20 [facility] Comment on above: Performed By: #### C HM7, MGO ####[facility] (DEFAULT)[address] [place] [address] EST GFR, >=60 Normal >=60 [facility] Comment on above: Performed By: #### C HM7, MGO ####[facility] (DEFAULT)[address] [place] [address] EST GFR,Non >=60 Normal >=60 [facility] Comment on above: Performed By: #### C HM7, MGO ####[facility] (DEFAULT)[address] [place] [address] Glucose [Mass/Vol] 87 mg/dL Normal 70-99 [facility] Comment on above: Performed By: #### C HM7, MGO ####[facility] (DEFAULT)[address] [place] [address] Osmolality [Osmolality] 289 mosm/kg Normal 278-305 [facility] Comment on above: Performed By: #### C HM7, MGO ####[facility] (DEFAULT)[address] [place] [address] Potassium [Moles/Vol] 3.7 mmol/L Normal 3.5-5.0 [facility] Comment on above: Performed By: #### C HM7, MGO ####[facility] (DEFAULT)[address] [place] [address] Sodium [Moles/Vol] 140 mmol/L Normal 133-143 [facility] Comment on above: Performed By: #### Lori HM7, MGO ####[facility] (DEFAULT)[address] [place] [address] Urea nitrogen [Mass/Vol] 7 mg/dL Normal 7-25 [facility] Comment on above: Performed By: #### Lori HM7, MGO ####[facility] (DEFAULT)[address] [place] [address] Urea nitrogen/Creatinine [Mass ratio] 13 mg/mg Normal [facility] Comment on above: Performed By: #### Lori MERCADO7, MGO ####[facility] (DEFAULT)[address] [place] [address] MAGNESIUMon 11-09-2021 Magnesium [Mass/Vol] 1.6 mg/dL Normal 1.6-2.6 [facility] Comment on above: Performed By: #### Lori HM7, MGO ####[facility] (DEFAULT)[address] [place] [address] CHEM 7 (LYTES,BUN,CREA,GLUC) on 11-08-2021 Anion gap [Moles/Vol] 14 mmol/L Normal 7-17 [facility] Comment on above: Performed By: #### Sukhjinder ZHU CHM7 ####[facility] (DEFAULT)[address] [place] [address] Chloride [Moles/Vol] 104 mmol/L Normal 98-108 [facility] Comment on above: Performed By: #### Sukhjinder ZHU CHM7 ####[facility] (DEFAULT)[address] [facility] [place] [address] CO2 [Moles/Vol] 27 mmol/L Normal 21-31 [facility] Comment on above: Performed By: #### GAURAV YAO7 ####[facility] (DEFAULT)[address] [place] [address] Creatinine [Mass/Vol] 0.62 mg/dL Normal 0.50-1.20 [facility] Comment on above: Performed By: #### GAURAV YAO7 ####[facility] (DEFAULT)[address] [place] [address] EST GFR, >=60 Normal >=60 [facility] Comment on above: Performed By: #### Sukhjinder ZHU CHSukhjinder7 ####[facility] (DEFAULT)[address] [place] [address] EST GFR,Non >=60 Normal >=60 [facility] Comment on above: Performed By: #### Sukhjinder ZHU CHM7 ####[facility] (DEFAULT)[address] [facility] [place] [address] Glucose [Mass/Vol] 90 mg/dL Normal 70-99 [facility] Comment on above: Performed By: #### Sukhjinder ZHU CHM7 ####[facility] (DEFAULT)[address] [facility] [place] [address] Osmolality [Osmolality] 292 mosm/kg Normal 278-305 [facility] Comment on above: Performed By: #### Sukhjinder ZHU CHM7 ####[facility] (DEFAULT)[address] [place] [address] Potassium [Moles/Vol] 4.0 mmol/L Normal 3.5-5.0 [facility] Comment on above: Performed By: #### Sukhjinder ZHU CHM7 ####[facility] (DEFAULT)[address] [facility] [place] [address] Sodium [Moles/Vol] 141 mmol/L Normal 133-143 [facility] Comment on above: Performed By: #### Sukhjinder ZHU CHM7 ####[facility] (DEFAULT)[address] [place] [address] Urea nitrogen [Mass/Vol] 6 mg/dL Low 7-25 [facility] Comment on above: Performed By: #### Sukhjinder ZHU CHM7 ####[facility] (DEFAULT)[address] [place] [address] Urea nitrogen/Creatinine [Mass ratio] 10 mg/mg Normal [facility] Comment on above: Performed By: #### GAURAV YAO7 ####[facility] (DEFAULT)[address] [place] [address] MAGNESIUMon 11-08-2021 Magnesium [Mass/Vol] 1.5 mg/dL Low 1.6-2.6 [facility] Comment on above: Performed By: #### SCOTT YAO ####[facility] (DEFAULT)[address] [facility] [place] [address] CBC,PLATELETSon 11-07-2021 Hematocrit (Bld) [Volume fraction] 34.7 % Low 34.9-44.3 [facility] Comment on above: Performed By: #### H [facility] ####[facility] (DEFAULT)[address] [facility] [place] [address] Hemoglobin (Bld) [Mass/Vol] 10.8 g/dL Low 11.4-15.2 [facility] Comment on above: Performed By: #### H EMOGC ####[facility] (DEFAULT)[address] [facility] [place] [address] MCV (RBC) [Entitic vol] 84.6 fL Normal 79.6-97.7 [facility] Comment on above: Performed By: #### H EMOGC ####[facility] (DEFAULT)[address] [place] [address] Mean Cell Hgb 26.3 pg Normal 25.9-33.9 [facility] Comment on above: Performed By: #### H EMOGC ####[facility] (DEFAULT)[address] [facility] [place] [address] Mean Cell Hgb Conc 31.1 g/dL Low 31.4-35.9 [facility] Comment on above: Performed By: #### H EMOGC ####[facility] (DEFAULT)[address] [facility] [place] [address] Platelet mean volume (Bld) [Entitic vol] 11.0 fL Normal 8.5-12.2 [facility] Comment on above: Performed By: #### H EMOGC ####[facility] (DEFAULT)[address] [facility] [place] [address] Platelets (Bld) [#/Vol] 286 10*3/uL Normal 150-393 [facility] Comment on above: Performed By: #### H EMO ####[facility] (DEFAULT)[address] [place] [address] RBC (Bld) [#/Vol] 4.10 10*6/uL Normal 3.91-5.04 [facility] Comment on above: Performed By: #### H EMOGC ####[facility] (DEFAULT)[address] [place] [address] RBC Distribution 14.4 % Normal 10.8-14.9 [facility] Comment on above: Performed By: #### H EMOGC ####[facility] (DEFAULT)[address] [facility] [place] [address] WBC (Bld) [#/Vol] 6.51 10*3/uL Normal 3.99-11.19 [facility] Comment on above: Performed By: #### H EMOGC ####[facility] (DEFAULT)[address] [facility] [place] [place] [address] CHEM 7 (LYTES,BUN,CREA,GLUC) on 11-07-2021 Anion gap [Moles/Vol] 14 mmol/L Normal 7-17 [facility] Comment on above: Performed By: #### GAURAV YAO7 ####[facility] (DEFAULT)[address] [place] [address] Chloride [Moles/Vol] 105 mmol/L Normal 98-108 [facility] Comment on above: Performed By: #### GAURAV YAO7 ####[facility] (DEFAULT)[address] [place] [address] CO2 [Moles/Vol] 27 mmol/L Normal 21-31 [facility] Comment on above: Performed By: #### GAURAV YAO7 ####[facility] (DEFAULT)[address] [place] [address] Creatinine [Mass/Vol] 0.54 mg/dL Normal 0.50-1.20 [facility] Comment on above: Performed By: #### GAURAV YAO7 ####[facility] (DEFAULT)[address] [place] [address] EST GFR, >=60 Normal >=60 [facility] Comment on above: Performed By: #### GAURAV YAO7 ####[facility] (DEFAULT)[address] [place] [address] EST GFR,Non >=60 Normal >=60 [facility] Comment on above: Performed By: #### Sukhjinder ZHU CHM7 ####[facility] (DEFAULT)[address] [place] [address] Glucose [Mass/Vol] 103 mg/dL High 70-99 [facility] Comment on above: Performed By: #### Sukhjinder ZHU CHM7 ####[facility] (DEFAULT)[address] [place] [address] Osmolality [Osmolality] 294 mosm/kg Normal 278-305 [facility] Comment on above: Performed By: #### M GO, CHM7 ####[facility] (DEFAULT)[address] [place] [address] Potassium [Moles/Vol] 3.8 mmol/L Normal 3.5-5.0 [facility] Comment on above: Performed By: #### Sukhjinder ZHU CHM7 ####[facility] (DEFAULT)[address] [place] [address] Sodium [Moles/Vol] 142 mmol/L Normal 133-143 [facility] Comment on above: Performed By: #### GAURAV YAO7 ####[facility] (DEFAULT)[address] [place] [address] Urea nitrogen [Mass/Vol] 7 mg/dL Normal 7-25 [facility] Comment on above: Performed By: #### GAURAV YAO7 ####[facility] (DEFAULT)[address] [place] [address] Urea nitrogen/Creatinine [Mass ratio] 13 mg/mg Normal [facility] Comment on above: Performed By: #### GUARAV YAO7 ####[facility] (DEFAULT)[address] [place] [address] MAGNESIUMon 11-07-2021 Magnesium [Mass/Vol] 1.6 mg/dL Normal 1.6-2.6 [facility] Comment on above: Performed By: #### Sukhjinder ZHU CHM7 ####[facility] (DEFAULT)[address] [place] [address] CHEM 7 (LYTES,BUN,CREA,GLUC) on 11-06-2021 Anion gap [Moles/Vol] 14 mmol/L Normal 7-17 [facility] Comment on above: Performed By: #### Sukhjinder ZHU CHM7 ####[facility] (DEFAULT)[address] [place] [address] Chloride [Moles/Vol] 102 mmol/L Normal 98-108 [facility] Comment on above: Performed By: #### GAURAV YAO7 ####[facility] (DEFAULT)[address] [place] [address] CO2 [Moles/Vol] 28 mmol/L Normal 21-31 [facility] Comment on above: Performed By: #### GAURAV YAO7 ####[facility] (DEFAULT)[address] [place] [address] Creatinine [Mass/Vol] 0.51 mg/dL Normal 0.50-1.20 [facility] Comment on above: Performed By: #### GAURAV YAO7 ####[facility] (DEFAULT)[address] [place] [address] EST GFR, >=60 Normal >=60 [facility] Comment on above: Performed By: #### SCOTT YAO ####[facility] (DEFAULT)[address] [place] [address] EST GFR,Non >=60 Normal >=60 [facility] Comment on above: Performed By: #### SCOTT YAO ####[facility] (DEFAULT)[address] [place] [address] Glucose [Mass/Vol] 91 mg/dL Normal 70-99 [facility] Comment on above: Performed By: #### SCOTT YAO ####[facility] (DEFAULT)[address] [place] [address] Osmolality [Osmolality] 291 mosm/kg Normal 278-305 [facility] Comment on above: Performed By: #### GAURAV YAO7 ####[facility] (DEFAULT)[address] [place] [address] Potassium [Moles/Vol] 4.4 mmol/L Normal 3.5-5.0 [facility] Comment on above: Performed By: #### SCOTT YAO ####[facility] (DEFAULT)[address] [place] [address] Sodium [Moles/Vol] 140 mmol/L Normal 133-143 [facility] Comment on above: Performed By: #### GAURAV YAO7 ####[facility] (DEFAULT)[address] [place] [address] Urea nitrogen [Mass/Vol] 8 mg/dL Normal 7-25 [facility] Comment on above: Performed By: #### SCOTT YAO ####[facility] (DEFAULT)[address] [place] [address] Urea nitrogen/Creatinine [Mass ratio] 16 mg/mg Normal [facility] Comment on above: Performed By: #### GAURAV YAO7 ####[facility] (DEFAULT)[address] [place] [address] MAGNESIUMon 11-06-2021 Magnesium [Mass/Vol] 1.6 mg/dL Normal 1.6-2.6 [facility] Comment on above: Performed By: #### SCOTT YAO ####[facility] (DEFAULT)[address] [place] [address] CHEM 7 (LYTES,BUN,CREA,GLUC) on 11-05-2021 Anion gap [Moles/Vol] 16 mmol/L Normal 7-17 [facility] Comment on above: Performed By: #### SCOTT YAO ####[facility] (DEFAULT)[address] [place] [address] Chloride [Moles/Vol] 102 mmol/L Normal 98-108 [facility] Comment on above: Performed By: #### GAURAV YAO7 ####[facility] (DEFAULT)[address] [place] [address] CO2 [Moles/Vol] 26 mmol/L Normal 21-31 [facility] Comment on above: Performed By: #### M GO, CHM7 ####[facility] (DEFAULT)[address] [place] [address] Creatinine [Mass/Vol] 0.53 mg/dL Normal 0.50-1.20 [facility] Comment on above: Performed By: #### M MARKO CHM7 ####[facility] (DEFAULT)[address] [place] [address] EST GFR, >=60 Normal >=60 [facility] Comment on above: Performed By: #### M MARKO CHM7 ####[facility] (DEFAULT)[address] [place] [address] EST GFR,Non >=60 Normal >=60 [facility] Comment on above: Performed By: #### Sukhjinder ZHU CHM7 ####[facility] (DEFAULT)[address] [facility] [place] [address] Glucose [Mass/Vol] 86 mg/dL Normal 70-99 [facility] Comment on above: Performed By: #### Sukhjinder ZHU CHM7 ####[facility] (DEFAULT)[address] [facility] [place] [address] Osmolality [Osmolality] 290 mosm/kg Normal 278-305 [facility] Comment on above: Performed By: #### M MARKO CHM7 ####[facility] (DEFAULT)[address] [place] [address] Potassium [Moles/Vol] 3.9 mmol/L Normal 3.5-5.0 [facility] Comment on above: Performed By: #### Sukhjinder ZHU CHM7 ####[facility] (DEFAULT)[address] [place] [address] Sodium [Moles/Vol] 140 mmol/L Normal 133-143 [facility] Comment on above: Performed By: #### Sukhjinder ZHU CHM7 ####[facility] (DEFAULT)[address] [place] [address] Urea nitrogen [Mass/Vol] 8 mg/dL Normal 7-25 [facility] Comment on above: Performed By: #### SCOTT YAO ####[facility] (DEFAULT)[address] [place] [address], [place] [address] Urea nitrogen/Creatinine [Mass ratio] 15 mg/mg Normal [facility] Comment on above: Performed By: #### SCOTT YAO ####[facility] (DEFAULT)[address] [place] [address] MAGNESIUMon 11-05-2021 Magnesium [Mass/Vol] 1.7 mg/dL Normal 1.6-2.6 [facility] Comment on above: Performed By: #### SCOTT YAO ####[facility] (DEFAULT)[address] [place] [address] CBC,PLATELETSon 11-04-2021 Hematocrit (Bld) [Volume fraction] 36.0 % Normal 34.9-44.3 [facility] Comment on above: Performed By: #### H EMO ####[facility] (DEFAULT)[address] [place] [address] Hemoglobin (Bld) [Mass/Vol] 11.2 g/dL Low 11.4-15.2 [facility] Comment on above: Performed By: #### H EMOJM ####[facility] (DEFAULT)[address] [place] [address] MCV (RBC) [Entitic vol] 84.9 fL Normal 79.6-97.7 [facility] Comment on above: Performed By: #### H EMOJM ####[facility] (DEFAULT)[address] [place] [address] Mean Cell Hgb 26.4 pg Normal 25.9-33.9 [facility] Comment on above: Performed By: #### H EMO ####[facility] (DEFAULT)[address] [facility] [place] [place] [address] Mean Cell Hgb Conc 31.1 g/dL Low 31.4-35.9 [facility] Comment on above: Performed By: #### H EMO ####[facility] (DEFAULT)[address] [place] [address] Platelet mean volume (Bld) [Entitic vol] 10.9 fL Normal 8.5-12.2 [facility] Comment on above: Performed By: #### H EMOGC ####[facility] (DEFAULT)[address] [facility] [place] [place] [address] Platelets (Bld) [#/Vol] 321 10*3/uL Normal 150-393 [facility] Comment on above: Performed By: #### H EMO ####[facility] (DEFAULT)[address] [place] [address] RBC (Bld) [#/Vol] 4.24 10*6/uL Normal 3.91-5.04 [facility] Comment on above: Performed By: #### H EMO ####[facility] (DEFAULT)[address] [facility] [place] [address] RBC Distribution 14.6 % Normal 10.8-14.9 [facility] Comment on above: Performed By: #### H EMOGC ####[facility] (DEFAULT)[address] [place] [address] WBC (Bld) [#/Vol] 7.55 10*3/uL Normal 3.99-11.19 [facility] Comment on above: Performed By: #### H EMOGC ####[facility] (DEFAULT)[address] [place] [address] CHEM 7 (LYTES,BUN,CREA,GLUC) on 11-04-2021 Anion gap [Moles/Vol] 15 mmol/L Normal 7-17 [facility] Comment on above: Performed By: #### M GO, CHM7 ####[facility] (DEFAULT)[address] [place] [address] Chloride [Moles/Vol] 102 mmol/L Normal 98-108 [facility] Comment on above: Performed By: #### Sukhjinder ZHU CHM7 ####[facility] (DEFAULT)[address] [place] [address] CO2 [Moles/Vol] 28 mmol/L Normal 21-31 [facility] Comment on above: Performed By: #### Sukhjinder ZHU CHM7 ####[facility] (DEFAULT)[address] [place] [address] Creatinine [Mass/Vol] 0.48 mg/dL Low 0.50-1.20 [facility] Comment on above: Performed By: #### Sukhjinder ZHU CHM7 ####[facility] (DEFAULT)[address] [place] [address] EST GFR, >=60 Normal >=60 [facility] Comment on above: Performed By: #### Sukhjinder ZHU CHM7 ####[facility] (DEFAULT)[address] [place] [address] EST GFR,Non >=60 Normal >=60 [facility] Comment on above: Performed By: #### Sukhjinder ZHU CHM7 ####[facility] (DEFAULT)[address] [place] [address] Glucose [Mass/Vol] 97 mg/dL Normal 70-99 [facility] Comment on above: Performed By: #### Sukhjinder ZHU CHM7 ####[facility] (DEFAULT)[address] [place] [address] Osmolality [Osmolality] 293 mosm/kg Normal 278-305 [facility] Comment on above: Performed By: #### Sukhjinder ZHU CHM7 ####[facility] (DEFAULT)[address] [place] [address] Potassium [Moles/Vol] 3.9 mmol/L Normal 3.5-5.0 [facility] Comment on above: Performed By: #### GAURAV YAO7 ####[facility] (DEFAULT)[address] [place] [address] Sodium [Moles/Vol] 141 mmol/L Normal 133-143 [facility] Comment on above: Performed By: #### GAURAV YAO7 ####[facility] (DEFAULT)[address] [place] [address] Urea nitrogen [Mass/Vol] 9 mg/dL Normal 7-25 [facility] Comment on above: Performed By: #### GAURAV YAO7 ####[facility] (DEFAULT)[address] [facility] [place] [place] [address] Urea nitrogen/Creatinine [Mass ratio] 19 mg/mg Normal [facility] Comment on above: Performed By: #### SCOTT YAO ####[facility] (DEFAULT)[address] [facility] [place] [place] [address] MAGNESIUMon 11-04-2021 Magnesium [Mass/Vol] 1.7 mg/dL Normal 1.6-2.6 [facility] Comment on above: Performed By: #### GAURAV YAO7 ####[facility] (DEFAULT)[address] [place] [address] CHEM 7 (LYTES,BUN,CREA,GLUC) on 11-02-2021 Anion gap [Moles/Vol] 15 mmol/L Normal 7-17 [facility] Comment on above: Performed By: #### GAURAV YAO7 ####[facility] (DEFAULT)[address] [facility] [place] [place] [address] Chloride [Moles/Vol] 102 mmol/L Normal 98-108 [facility] Comment on above: Performed By: #### GAURAV YAO7 ####[facility] (DEFAULT)[address] [place] [address] CO2 [Moles/Vol] 26 mmol/L Normal 21-31 [facility] Comment on above: Performed By: #### Sukhjinder ZHU CHM7 ####[facility] (DEFAULT)[address] [place] [address] Creatinine [Mass/Vol] 0.40 mg/dL Low 0.50-1.20 [facility] Comment on above: Performed By: #### Sukhjinder ZHU CHM7 ####[facility] (DEFAULT)[address] [place] [address] EST GFR, >=60 Normal >=60 [facility] Comment on above: Performed By: #### Sukhjinder ZHU CHM7 ####[facility] (DEFAULT)[address] [place] [address] EST GFR,Non >=60 Normal >=60 [facility] Comment on above: Performed By: #### Sukhjinder ZHU CHM7 ####[facility] (DEFAULT)[address] [place] [address] Glucose [Mass/Vol] 94 mg/dL Normal 70-99 [facility] Comment on above: Performed By: #### Sukhjinder ZHU CHM7 ####[facility] (DEFAULT)[address] [facility] [place] [address] Osmolality [Osmolality] 288 mosm/kg Normal 278-305 [facility] Comment on above: Performed By: #### Sukhjinder ZHU CHM7 ####[facility] (DEFAULT)[address] [place] [address] Potassium [Moles/Vol] 4.6 mmol/L Normal 3.5-5.0 [facility] Comment on above: Performed By: #### Sukhjinder ZHU CHM7 ####[facility] (DEFAULT)[address] [place] [address] Sodium [Moles/Vol] 138 mmol/L Normal 133-143 [facility] Comment on above: Performed By: #### Sukhjinder ZHU CHM7 ####[facility] (DEFAULT)[address] [place] [address] Urea nitrogen [Mass/Vol] 7 mg/dL Normal 7-25 [facility] Comment on above: Performed By: #### Sukhjinder ZHU CHM7 ####[facility] (DEFAULT)[address] [place] [address] Urea nitrogen/Creatinine [Mass ratio] 18 mg/mg Normal [facility] Comment on above: Performed By: #### GAURAV YAO7 ####[facility] (DEFAULT)[address] [place] [address] PE STUDYon 11-02-2021 CT PE STUDY Normal [facility] MAGNESIUMon 11-02-2021 Magnesium [Mass/Vol] 1.8 mg/dL Normal 1.6-2.6 [facility] Comment on above: Performed By: #### SCOTT YAO ####[facility] (DEFAULT)[address] [place] [address] CBC,PLATELETSon 11-01-2021 Hematocrit (Bld) [Volume fraction] 36.7 % Normal 34.9-44.3 [facility] Comment on above: Performed By: #### H [facility] ####[facility] (DEFAULT)[address] [place] [address] Hemoglobin (Bld) [Mass/Vol] 11.4 g/dL Normal 11.4-15.2 [facility] Comment on above: Performed By: #### [facility] ####[facility] (DEFAULT)[address] [place] [address] 36972 MCV (RBC) [Entitic vol] 85.3 fL Normal 79.6-97.7 [facility] Comment on above: Performed By: #### H [facility] ####[facility] (DEFAULT)[address] [place] [address] Mean Cell Hgb 26.5 pg Normal 25.9-33.9 [facility] Comment on above: Performed By: #### H EMOGC ####[facility] (DEFAULT)[address] [place] [address] Mean Cell Hgb Conc 31.1 g/dL Low 31.4-35.9 [facility] Comment on above: Performed By: #### H EMOGC ####[facility] (DEFAULT)[address] [place] [address] Platelet mean volume (Bld) [Entitic vol] 10.8 fL Normal 8.5-12.2 [facility] Comment on above: Performed By: #### H EMOGC ####[facility] (DEFAULT)[address] [place] [address] Platelets (Bld) [#/Vol] 393 10*3/uL Normal 150-393 [facility] Comment on above: Performed By: #### H EMOGC ####[facility] (DEFAULT)[address] [facility] [place] [address] RBC (Bld) [#/Vol] 4.30 10*6/uL Normal 3.91-5.04 [facility] Comment on above: Performed By: #### H EMOGC ####[facility] (DEFAULT)[address] [place] [address] RBC Distribution 14.9 % Normal 10.8-14.9 [facility] Comment on above: Performed By: #### H EMOGC ####[facility] (DEFAULT)[address] [place] [address] WBC (Bld) [#/Vol] 7.63 10*3/uL Normal 3.99-11.19 [facility] Comment on above: Performed By: #### H EMOGC ####[facility] (DEFAULT)[address] [place] [address] CHEM 7 (LYTES,BUN,CREA,GLUC) on 11-01-2021 Anion gap [Moles/Vol] 12 mmol/L Normal 7-17 [facility] Comment on above: Performed By: #### C HM7, MGO ####[facility] (DEFAULT)[address] [place] [address] Chloride [Moles/Vol] 106 mmol/L Normal 98-108 [facility] Comment on above: Performed By: #### C HM7, MGO ####[facility] (DEFAULT)[address] [place] [address] CO2 [Moles/Vol] 25 mmol/L Normal 21-31 [facility] Comment on above: Performed By: #### C HM7, MGO ####[facility] (DEFAULT)[address] [facility] [place] [address] Creatinine [Mass/Vol] 0.52 mg/dL Normal 0.50-1.20 [facility] Comment on above: Performed By: #### C HM7, MGO ####[facility] (DEFAULT)[address] [place] [address] EST GFR, >=60 Normal >=60 [facility] Comment on above: Performed By: #### C HM7, MGO ####[facility] (DEFAULT)[address] [place] [address] EST GFR,Non >=60 Normal >=60 [facility] Comment on above: Performed By: #### C HM7, MGO ####[facility] (DEFAULT)[address] [place] [address] Glucose [Mass/Vol] 111 mg/dL High 70-99 [facility] Comment on above: Performed By: #### C HM7, MGO ####[facility] (DEFAULT)[address] [place] [address] Osmolality [Osmolality] 290 mosm/kg Normal 278-305 [facility] Comment on above: Performed By: #### C HM7, MGO ####[facility] (DEFAULT)[address] [place] [address] Potassium [Moles/Vol] 4.4 mmol/L Normal 3.5-5.0 [facility] Comment on above: Performed By: #### C HM7, MGO ####[facility] (DEFAULT)[address] [place] [address] Sodium [Moles/Vol] 139 mmol/L Normal 133-143 [facility] Comment on above: Performed By: #### C HM7, MGO ####[facility] (DEFAULT)[address] [place] [address] Urea nitrogen [Mass/Vol] 6 mg/dL Low 7-25 [facility] Comment on above: Performed By: #### Lori HM7, MGO ####[facility] (DEFAULT)[address] [place] [address] Urea nitrogen/Creatinine [Mass ratio] 12 mg/mg Normal [facility] Comment on above: Performed By: #### C HM7, MGO ####[facility] (DEFAULT)[address] [place] [address] MAGNESIUMon 11-01-2021 Magnesium [Mass/Vol] 1.7 mg/dL Normal 1.6-2.6 [facility] Comment on above: Performed By: #### C HM7, MGO ####[facility] (DEFAULT)[address] [place] [address] C DIFFICILE BY PCR (CLOSTRID IUM DIFFICILE TOXIN)on 10-31-2021 C Difficile By Pcr Negative Normal Negative [facility] Comment on above: Order Comment: C. di fficile toxin gene testing is clinically indicated if a patient has 3 or more watery, unformed stools in 24hrs. Assess patient for common causes of diarrhea such as antibiotics, laxatives, stool softeners, tube feeding, etc.Collect one sample in a 3-vial para-patrice kit consisting of a white, orange, and pink vial. Vials must be to fill line. If minimum volume, always fill white vial first. If multiple stool tests are ordered, only one 3-vial kit is required. If one C. Difficile is requested, only the white vial or a sterile container is required. This assay detects Toxigenic C. difficile (Toxin B gene DNA) by PCR. Results should be interpreted in conjunction with clinical findings. Performed By: #### C DIFP ####[facility] (DEFAULT)[address] [place] [address] CBC,PLATELETSon 10-31-2021 Hematocrit (Bld) [Volume fraction] 31.3 % Low 34.9-44.3 [facility] Comment on above: Performed By: #### H EMO ####[facility] (DEFAULT)[address] [place] [address] Hemoglobin (Bld) [Mass/Vol] 9.9 g/dL Low 11.4-15.2 [facility] Comment on above: Performed By: #### H EMO ####[facility] (DEFAULT)[address] [place] [address] 36863 MCV (RBC) [Entitic vol] 83.2 fL Normal 79.6-97.7 [facility] Comment on above: Performed By: #### H EMOGC ####[facility] (DEFAULT)[address] [place] [address] Mean Cell Hgb 26.3 pg Normal 25.9-33.9 [facility] Comment on above: Performed By: #### H EMOGC ####[facility] (DEFAULT)[address] [place] [address] Mean Cell Hgb Conc 31.6 g/dL Normal 31.4-35.9 [facility] Comment on above: Performed By: #### H EMOGC ####[facility] (DEFAULT)[address] [place] [address] Platelet mean volume (Bld) [Entitic vol] 10.5 fL Normal 8.5-12.2 [facility] Comment on above: Performed By: #### H EMOGC ####[facility] (DEFAULT)[address] [place] [address] Platelets (Bld) [#/Vol] 295 10*3/uL Normal 150-393 [facility] Comment on above: Performed By: #### H EMOGC ####[facility] (DEFAULT)[address] [facility] [place] [address] RBC (Bld) [#/Vol] 3.76 10*6/uL Low 3.91-5.04 [facility] Comment on above: Performed By: #### H EMOGC ####[facility] (DEFAULT)[address] [facility] [place] [address] RBC Distribution 14.6 % Normal 10.8-14.9 [facility] Comment on above: Performed By: #### H EMOGC ####[facility] (DEFAULT)[address] [facility] [place] [address] WBC (Bld) [#/Vol] 6.64 10*3/uL Normal 3.99-11.19 [facility] Comment on above: Performed By: #### H EMOGC ####[facility] (DEFAULT)[address] [place] [address] CHEM 7 (LYTES,BUN,CREA,GLUC) on 10-31-2021 Anion gap [Moles/Vol] 13 mmol/L Normal 7-17 [facility] Comment on above: Performed By: #### C HM7, MGO ####[facility] (DEFAULT)[address] [place] [address] Chloride [Moles/Vol] 107 mmol/L Normal 98-108 [facility] Comment on above: Performed By: #### C HM7, MGO ####[facility] (DEFAULT)[address] [place] [address] CO2 [Moles/Vol] 25 mmol/L Normal 21-31 [facility] Comment on above: Performed By: #### C HM7, MGO ####[facility] (DEFAULT)[address] [place] [address] Creatinine [Mass/Vol] 0.55 mg/dL Normal 0.50-1.20 [facility] Comment on above: Performed By: #### C HM7, MGO ####[facility] (DEFAULT)[address] [place] [address] EST GFR, >=60 Normal >=60 [facility] Comment on above: Performed By: #### C HM7, MGO ####[facility] (DEFAULT)[address] [place] [address] EST GFR,Non >=60 Normal >=60 [facility] Comment on above: Performed By: #### C HM7, MGO ####[facility] (DEFAULT)[address] [facility] [place] [address] Glucose [Mass/Vol] 104 mg/dL High 70-99 [facility] Comment on above: Performed By: #### C HM7, MGO ####[facility] (DEFAULT)[address] [place] [address] Osmolality [Osmolality] 291 mosm/kg Normal 278-305 [facility] Comment on above: Performed By: #### C HM7, MGO ####[facility] (DEFAULT)[address] [facility] [place] [place] [address] Potassium [Moles/Vol] 3.8 mmol/L Normal 3.5-5.0 [facility] Comment on above: Performed By: #### C HM7, MGO ####[facility] (DEFAULT)[address] [place] [address] Sodium [Moles/Vol] 141 mmol/L Normal 133-143 [facility] Comment on above: Performed By: #### C HM7, MGO ####[facility] (DEFAULT)[address] [place] [address], [place] [address] Urea nitrogen [Mass/Vol] 3 mg/dL Low 7-25 [facility] Comment on above: Performed By: #### C HM7, MGO ####[facility] (DEFAULT)[address] [place] [address], [place] [address] Urea nitrogen/Creatinine [Mass ratio] 5 mg/mg Normal [facility] Comment on above: Performed By: #### C HM7, MGO ####[facility] (DEFAULT)[address] [place] [address], [place] [address] MAGNESIUMon 10-31-2021 Magnesium [Mass/Vol] 1.5 mg/dL Low 1.6-2.6 [facility] Comment on above: Performed By: #### Lori HM7, MGO ####[facility] (DEFAULT)[address] [place] [address], [place] [address] CBC,PLATELETSon 10-30-2021 Hematocrit (Bld) [Volume fraction] 30.0 % Low 34.9-44.3 [facility] Comment on above: Performed By: #### H EMO ####[facility] (DEFAULT)[address] [place] [address], [place] [address] Hemoglobin (Bld) [Mass/Vol] 9.4 g/dL Low 11.4-15.2 [facility] Comment on above: Performed By: #### H EMOGC ####[facility] (DEFAULT)[address] [place] [address] MCV (RBC) [Entitic vol] 83.8 fL Normal 79.6-97.7 [facility] Comment on above: Performed By: #### H EMOGC ####[facility] (DEFAULT)[address] [facility] [place] [place] [address] Mean Cell Hgb 26.3 pg Normal 25.9-33.9 [facility] Comment on above: Performed By: #### H EMOGC ####[facility] (DEFAULT)[address] [place] [address] Mean Cell Hgb Conc 31.3 g/dL Low 31.4-35.9 [facility] Comment on above: Performed By: #### H EMOGC ####[facility] (DEFAULT)[address] [facility] [place] [place] [address] Platelet mean volume (Bld) [Entitic vol] 10.7 fL Normal 8.5-12.2 [facility] Comment on above: Performed By: #### H EMOGC ####[facility] (DEFAULT)[address] [place] [address] Platelets (Bld) [#/Vol] 276 10*3/uL Normal 150-393 [facility] Comment on above: Performed By: #### H EMOGC ####[facility] (DEFAULT)[address] [facility] [place] [place] [address] RBC (Bld) [#/Vol] 3.58 10*6/uL Low 3.91-5.04 [facility] Comment on above: Performed By: #### H EMOGC ####[facility] (DEFAULT)[address] [place] [address] RBC Distribution 14.6 % Normal 10.8-14.9 [facility] Comment on above: Performed By: #### H EMOGC ####[facility] (DEFAULT)[address] [facility] [place] [place] [address] WBC (Bld) [#/Vol] 5.71 10*3/uL Normal 3.99-11.19 [facility] Comment on above: Performed By: #### H EMOGC ####[facility] (DEFAULT)[address] [facility] [place] [place] [address] CHEM 7 (LYTES,BUN,CREA,GLUC) on 10-30-2021 Anion gap [Moles/Vol] 12 mmol/L Normal 7-17 [facility] Comment on above: Performed By: #### Sukhjinder ZHU CHM7 ####[facility] (DEFAULT)[address] [place] [address] Chloride [Moles/Vol] 110 mmol/L High 98-108 [facility] Comment on above: Performed By: #### Sukhjinder ZHU CHM7 ####[facility] (DEFAULT)[address] [facility] [place] [place] [address] CO2 [Moles/Vol] 26 mmol/L Normal 21-31 [facility] Comment on above: Performed By: #### Sukhjinder ZHU CHM7 ####[facility] (DEFAULT)[address] [place] [address] Creatinine [Mass/Vol] 0.46 mg/dL Low 0.50-1.20 [facility] Comment on above: Performed By: #### Sukhjinder ZHU CHM7 ####[facility] (DEFAULT)[address] [place] [address] EST GFR, >=60 Normal >=60 [facility] Comment on above: Performed By: #### Sukhjinder ZHU CHM7 ####[facility] (DEFAULT)[address] [place] [address] EST GFR,Non >=60 Normal >=60 [facility] Comment on above: Performed By: #### Sukhjinder ZHU CHM7 ####[facility] (DEFAULT)[address] [place] [address] Glucose [Mass/Vol] 95 mg/dL Normal 70-99 [facility] Comment on above: Performed By: #### Sukhjinder ZHU CHM7 ####[facility] (DEFAULT)[address] [place] [address] Osmolality [Osmolality] 297 mosm/kg Normal 278-305 [facility] Comment on above: Performed By: #### Sukhjinder ZHU CHM7 ####[facility] (DEFAULT)[address] [place] [address] Potassium [Moles/Vol] 3.1 mmol/L Low 3.5-5.0 [facility] Comment on above: Performed By: #### Sukhjinder ZHU CHM7 ####[facility] (DEFAULT)[address] [place] [address] Sodium [Moles/Vol] 145 mmol/L High 133-143 [facility] Comment on above: Performed By: #### Sukhjinder ZHU CHM7 ####[facility] (DEFAULT)[address] [facility] [place] [address] Urea nitrogen [Mass/Vol] 3 mg/dL Low 7-25 [facility] Comment on above: Performed By: #### Sukhjinder ZHU CHM7 ####[facility] (DEFAULT)[address] [facility] [place] [place] [address] Urea nitrogen/Creatinine [Mass ratio] 7 mg/mg Normal [facility] Comment on above: Performed By: #### Sukhjinder ZHU CHM7 ####[facility] (DEFAULT)[address] [place] [address] MAGNESIUMon 10-30-2021 Magnesium [Mass/Vol] 1.5 mg/dL Low 1.6-2.6 [facility] Comment on above: Performed By: #### Sukhjinder ZHU CHM7 ####[facility] (DEFAULT)[address] [facility] [place] [place] [address] XR CHEST PORTABLEon 10-30-20 21 XR CHEST PORTABLE Normal [facility] CBC,PLATELETSon 10-29-2021 Hematocrit (Bld) [Volume fraction] 28.6 % Low 34.9-44.3 [facility] Comment on above: Performed By: #### H EMOGC ####[facility] (DEFAULT)[address] [place] [address] Hemoglobin (Bld) [Mass/Vol] 9.2 g/dL Low 11.4-15.2 [facility] Comment on above: Performed By: #### H EMOGC ####[facility] (DEFAULT)[address] [place] [address] MCV (RBC) [Entitic vol] 82.9 fL Normal 79.6-97.7 [facility] Comment on above: Performed By: #### H EMOGC ####[facility] (DEFAULT)[address] [facility] [place] [place] [address] Mean Cell Hgb 26.7 pg Normal 25.9-33.9 [facility] Comment on above: Performed By: #### H EMOGC ####[facility] (DEFAULT)[address] [facility] [place] [place] [address] Mean Cell Hgb Conc 32.2 g/dL Normal 31.4-35.9 [facility] Comment on above: Performed By: #### H EMOGC ####[facility] (DEFAULT)[address] [place] [address] Platelet mean volume (Bld) [Entitic vol] 10.4 fL Normal 8.5-12.2 [facility] Comment on above: Performed By: #### H EMOGC ####[facility] (DEFAULT)[address] [place] [address] Platelets (Bld) [#/Vol] 264 10*3/uL Normal 150-393 [facility] Comment on above: Performed By: #### H EMOGC ####[facility] (DEFAULT)[address] [place] [address] RBC (Bld) [#/Vol] 3.45 10*6/uL Low 3.91-5.04 [facility] Comment on above: Performed By: #### H EMOGC ####[facility] (DEFAULT)[address] [place] [address] RBC Distribution 14.4 % Normal 10.8-14.9 [facility] Comment on above: Performed By: #### H [facility] ####[facility] (DEFAULT)[address] [facility] [place] [place] [address] WBC (Bld) [#/Vol] 5.17 10*3/uL Normal 3.99-11.19 [facility] Comment on above: Performed By: #### H [facility] ####[facility] (DEFAULT)[address] [facility] [place] [address] CHEM 7 (LYTES,BUN,CREA,GLUC) on 10-29-2021 Anion gap [Moles/Vol] 12 mmol/L Normal 7-17 [facility] Comment on above: Performed By: #### C HM7, MGO ####[facility] (DEFAULT)[address] [place] [address] Chloride [Moles/Vol] 109 mmol/L High 98-108 [facility] Comment on above: Performed By: #### C HM7, MGO ####[facility] (DEFAULT)[address] [place] [address] CO2 [Moles/Vol] 25 mmol/L Normal 21-31 [facility] Comment on above: Performed By: #### C HM7, MGO ####[facility] (DEFAULT)[address] [place] [address] Creatinine [Mass/Vol] 0.47 mg/dL Low 0.50-1.20 [facility] Comment on above: Performed By: #### C HM7, MGO ####[facility] (DEFAULT)[address] [facility] [place] [address] EST GFR, >=60 Normal >=60 [facility] Comment on above: Performed By: #### C HM7, MGO ####[facility] (DEFAULT)[address] [place] [address] EST GFR,Non >=60 Normal >=60 [facility] Comment on above: Performed By: #### C HM7, MGO ####[facility] (DEFAULT)[address] [place] [address] Glucose [Mass/Vol] 98 mg/dL Normal 70-99 [facility] Comment on above: Performed By: #### C HM7, MGO ####[facility] (DEFAULT)[address] [place] [address] Osmolality [Osmolality] 293 mosm/kg Normal 278-305 [facility] Comment on above: Performed By: #### C HM7, MGO ####[facility] (DEFAULT)[address] [place] [address] Potassium [Moles/Vol] 2.9 mmol/L Critically low 3.5-5.0 [facility] Comment on above: Performed By: #### C HM7, MGO ####[facility] (DEFAULT)[address] [place] [address] Sodium [Moles/Vol] 143 mmol/L Normal 133-143 [facility] Comment on above: Performed By: #### C HM7, MGO ####[facility] (DEFAULT)[address] [place] [address] Urea nitrogen [Mass/Vol] 4 mg/dL Low 7-25 [facility] Comment on above: Performed By: #### C HM7, MGO ####[facility] (DEFAULT)[address] [place] [address] Urea nitrogen/Creatinine [Mass ratio] 9 mg/mg Normal [facility] Comment on above: Performed By: #### C HM7, MGO ####[facility] (DEFAULT)[address] [place] [address] MAGNESIUMon 10-29-2021 Magnesium [Mass/Vol] 1.5 mg/dL Low 1.6-2.6 [facility] Comment on above: Performed By: #### C HM7, MGO ####[facility] (DEFAULT)[address] [place] [address], [place] [address] POTASSIUMon 10-29-2021 Potassium [Moles/Vol] 3.5 mmol/L Normal 3.5-5.0 [facility] Comment on above: Performed By: #### K KO ####[facility] (DEFAULT)[address] [place] [address], [place] [address] CBC,PLATELETSon 10-28-2021 Hematocrit (Bld) [Volume fraction] 30.3 % Low 34.9-44.3 [facility] Comment on above: Performed By: #### H EMOGC ####[facility] (DEFAULT)[address] [place] [address] Hemoglobin (Bld) [Mass/Vol] 9.5 g/dL Low 11.4-15.2 [facility] Comment on above: Performed By: #### H EMO ####[facility] (DEFAULT)[address] [place] [address] MCV (RBC) [Entitic vol] 84.9 fL Normal 79.6-97.7 [facility] Comment on above: Performed By: #### H EMOGC ####[facility] (DEFAULT)[address] [place] [address] Mean Cell Hgb 26.6 pg Normal 25.9-33.9 [facility] Comment on above: Performed By: #### H EMOGC ####[facility] (DEFAULT)[address] [place] [address] Mean Cell Hgb Conc 31.4 g/dL Normal 31.4-35.9 [facility] Comment on above: Performed By: #### H EMOGC ####[facility] (DEFAULT)[address] [place] [address] Platelet mean volume (Bld) [Entitic vol] 10.5 fL Normal 8.5-12.2 [facility] Comment on above: Performed By: #### H EMOGC ####[facility] (DEFAULT)[address] [place] [address] Platelets (Bld) [#/Vol] 237 10*3/uL Normal 150-393 [facility] Comment on above: Performed By: #### H EMOGC ####[facility] (DEFAULT)[address] [facility] [place] [place] [address] RBC (Bld) [#/Vol] 3.57 10*6/uL Low 3.91-5.04 [facility] Comment on above: Performed By: #### H EMOGC ####[facility] (DEFAULT)[address] [facility] [place] [address] RBC Distribution 14.6 % Normal 10.8-14.9 [facility] Comment on above: Performed By: #### H EMOGC ####[facility] (DEFAULT)[address] [place] [address] WBC (Bld) [#/Vol] 5.02 10*3/uL Normal 3.99-11.19 [facility] Comment on above: Performed By: #### H EMOGC ####[facility] (DEFAULT)[address] [place] [address] CHEM 7 (LYTES,BUN,CREA,GLUC) on 10-28-2021 Anion gap [Moles/Vol] 12 mmol/L Normal 7-17 [facility] Comment on above: Performed By: #### C HM7, MGO ####[facility] (DEFAULT)[address] [facility] [place] [address] Chloride [Moles/Vol] 109 mmol/L High 98-108 [facility] Comment on above: Performed By: #### C HM7, MGO ####[facility] (DEFAULT)[address] [place] [address] CO2 [Moles/Vol] 22 mmol/L Normal 21-31 [facility] Comment on above: Performed By: #### C HM7, MGO ####[facility] (DEFAULT)[address] [place] [address] Creatinine [Mass/Vol] 0.47 mg/dL Low 0.50-1.20 [facility] Comment on above: Performed By: #### C HM7, MGO ####[facility] (DEFAULT)[address] [place] [address] EST GFR, >=60 Normal >=60 [facility] Comment on above: Performed By: #### C HM7, MGO ####[facility] (DEFAULT)[address] [place] [address] EST GFR,Non >=60 Normal >=60 [facility] Comment on above: Performed By: #### C HM7, MGO ####[facility] (DEFAULT)[address] [place] [address] Glucose [Mass/Vol] 95 mg/dL Normal 70-99 [facility] Comment on above: Performed By: #### C HM7, MGO ####[facility] (DEFAULT)[address] [facility] [place] [place] [address] Osmolality [Osmolality] 288 mosm/kg Normal 278-305 [facility] Comment on above: Performed By: #### C HM7, MGO ####[facility] (DEFAULT)[address] [place] [address] Potassium [Moles/Vol] 3.0 mmol/L Low 3.5-5.0 [facility] Comment on above: Performed By: #### C HM7, MGO ####[facility] (DEFAULT)[address] [facility] [place] [address] Sodium [Moles/Vol] 140 mmol/L Normal 133-143 [facility] Comment on above: Performed By: #### C HM7, MGO ####[facility] (DEFAULT)[address] [place] [address] Urea nitrogen [Mass/Vol] 5 mg/dL Low 7-25 [facility] Comment on above: Performed By: #### C HM7, MGO ####[facility] (DEFAULT)[address] [place] [address] Urea nitrogen/Creatinine [Mass ratio] 11 mg/mg Normal [facility] Comment on above: Performed By: #### C HM7, MGO ####[facility] (DEFAULT)[address] [place] [address] MAGNESIUMon 10-28-2021 Magnesium [Mass/Vol] 1.4 mg/dL Low 1.6-2.6 [facility] Comment on above: Performed By: #### C HM7, MGO ####[facility] (DEFAULT)[address] [place] [address] CBC,PLATELETSon 10-27-2021 Hematocrit (Bld) [Volume fraction] 29.4 % Low 34.9-44.3 [facility] Comment on above: Performed By: #### H EMO ####[facility] (DEFAULT)[address] [place] [address], [place] [address] Hemoglobin (Bld) [Mass/Vol] 9.3 g/dL Low 11.4-15.2 [facility] Comment on above: Performed By: #### H EMOGC ####[facility] (DEFAULT)[address] [place] [address] MCV (RBC) [Entitic vol] 84.2 fL Normal 79.6-97.7 [facility] Comment on above: Performed By: #### H EMOGC ####[facility] (DEFAULT)[address] [place] [address], [place] [address] Mean Cell Hgb 26.6 pg Normal 25.9-33.9 [facility] Comment on above: Performed By: #### H EMOGC ####[facility] (DEFAULT)[address] [facility] [place] [address] Mean Cell Hgb Conc 31.6 g/dL Normal 31.4-35.9 [facility] Comment on above: Performed By: #### H EMOGC ####[facility] (DEFAULT)[address] [place] [address] Platelet mean volume (Bld) [Entitic vol] 11.2 fL Normal 8.5-12.2 [facility] Comment on above: Performed By: #### H EMOGC ####[facility] (DEFAULT)[address] [facility] [place] [place] [address] Platelets (Bld) [#/Vol] 221 10*3/uL Normal 150-393 [facility] Comment on above: Performed By: #### H EMOGC ####[facility] (DEFAULT)[address] [place] [address] RBC (Bld) [#/Vol] 3.49 10*6/uL Low 3.91-5.04 [facility] Comment on above: Performed By: #### H EMOGC ####[facility] (DEFAULT)[address] [place] [address] RBC Distribution 14.7 % Normal 10.8-14.9 [facility] Comment on above: Performed By: #### H EMOGC ####[facility] (DEFAULT)[address] [place] [address] WBC (Bld) [#/Vol] 4.31 10*3/uL Normal 3.99-11.19 [facility] Comment on above: Performed By: #### H EMOGC ####[facility] (DEFAULT)[address] [place] [address] CHEM 7 (LYTES,BUN,CREA,GLUC) on 10-27-2021 Anion gap [Moles/Vol] 14 mmol/L Normal 7-17 [facility] Comment on above: Performed By: #### C HM7, MGO ####[facility] (DEFAULT)[address] [place] [address] Chloride [Moles/Vol] 109 mmol/L High 98-108 [facility] Comment on above: Performed By: #### C HM7, MGO ####[facility] (DEFAULT)[address] [place] [address] CO2 [Moles/Vol] 21 mmol/L Low 22-30 [facility] Comment on above: Performed By: #### C HM7, MGO ####[facility] (DEFAULT)[address] [place] [address] Creatinine [Mass/Vol] 0.39 mg/dL Low 0.50-1.20 [facility] Comment on above: Performed By: #### C HM7, MGO ####[facility] (DEFAULT)[address] [place] [address] EST GFR, >=60 Normal >=60 [facility] Comment on above: Performed By: #### C HM7, MGO ####[facility] (DEFAULT)[address] [place] [address] EST GFR,Non >=60 Normal >=60 [facility] Comment on above: Performed By: #### C HM7, MGO ####[facility] (DEFAULT)[address] [place] [address] Glucose [Mass/Vol] 94 mg/dL Normal 70-99 [facility] Comment on above: Performed By: #### C HM7, MGO ####[facility] (DEFAULT)[address] [place] [address] Osmolality [Osmolality] 289 mosm/kg Normal 278-305 [facility] Comment on above: Performed By: #### C HM7, MGO ####[facility] (DEFAULT)[address] [place] [address] Potassium [Moles/Vol] 3.4 mmol/L Low 3.5-5.0 [facility] Comment on above: Performed By: #### C HM7, MGO ####[facility] (DEFAULT)[address] [place] [address] Sodium [Moles/Vol] 141 mmol/L Normal 133-143 [facility] Comment on above: Performed By: #### C HM7, MGO ####[facility] (DEFAULT)[address] [place] [address] Urea nitrogen [Mass/Vol] 2 mg/dL Low 7-22 [facility] Comment on above: Performed By: #### C HM7, MGO ####[facility] (DEFAULT)[address] [place] [address] Urea nitrogen/Creatinine [Mass ratio] 5 mg/mg Normal [facility] Comment on above: Performed By: #### C HM7, MGO ####[facility] (DEFAULT)[address] [place] [address] MAGNESIUMon 10-27-2021 Magnesium [Mass/Vol] 1.5 mg/dL Low 1.6-2.6 [facility] Comment on above: Performed By: #### C HM7, MGO ####[facility] (DEFAULT)[address] [place] [address] CBC,PLATELETSon 10-26-2021 Hematocrit (Bld) [Volume fraction] 27.9 % Low 34.9-44.3 [facility] Comment on above: Performed By: #### H EMOGC ####[facility] (DEFAULT)[address] [place] [address] Hemoglobin (Bld) [Mass/Vol] 8.8 g/dL Low 11.4-15.2 [facility] Comment on above: Performed By: #### H EMOGC ####[facility] (DEFAULT)[address] [place] [address] MCV (RBC) [Entitic vol] 85.8 fL Normal 79.6-97.7 [facility] Comment on above: Performed By: #### H EMOGC ####[facility] (DEFAULT)[address] [place] [address] Mean Cell Hgb 27.1 pg Normal 25.9-33.9 [facility] Comment on above: Performed By: #### H EMOGC ####[facility] (DEFAULT)[address] [place] [address] Mean Cell Hgb Conc 31.5 g/dL Normal 31.4-35.9 [facility] Comment on above: Performed By: #### H EMOGC ####[facility] (DEFAULT)[address] [place] [address] Platelet mean volume (Bld) [Entitic vol] 11.4 fL Normal 8.5-12.2 [facility] Comment on above: Performed By: #### H EMOGC ####[facility] (DEFAULT)[address] [place] [address] Platelets (Bld) [#/Vol] 184 10*3/uL Normal 150-393 [facility] Comment on above: Performed By: #### H EMOGC ####[facility] (DEFAULT)[address] [place] [address] RBC (Bld) [#/Vol] 3.25 10*6/uL Low 3.91-5.04 [facility] Comment on above: Performed By: #### H EMOGC ####[facility] (DEFAULT)[address] [facility] [place] [place] [address] RBC Distribution 15.1 % High 10.8-14.9 [facility] Comment on above: Performed By: #### H EMO ####[facility] (DEFAULT)[address] [place] [address] WBC (Bld) [#/Vol] 4.91 10*3/uL Normal 3.99-11.19 [facility] Comment on above: Performed By: #### H EMO ####[facility] (DEFAULT)[address] [place] [address] CHEM 7 (LYTES,BUN,CREA,GLUC) on 10-26-2021 Anion gap [Moles/Vol] 17 mmol/L Normal 7-17 [facility] Comment on above: Performed By: #### C HM7, MGO ####[facility] (DEFAULT)[address] [facility] [place] [address] Chloride [Moles/Vol] 106 mmol/L Normal 98-108 [facility] Comment on above: Performed By: #### C HM7, MGO ####[facility] (DEFAULT)[address] [facility] [place] [address] CO2 [Moles/Vol] 19 mmol/L Low 22-30 [facility] Comment on above: Performed By: #### C HM7, MGO ####[facility] (DEFAULT)[address] [facility] [place] [place] [address] Creatinine [Mass/Vol] 0.50 mg/dL Normal 0.50-1.20 [facility] Comment on above: Performed By: #### C HM7, MGO ####[facility] (DEFAULT)[address] [place] [address] EST GFR, >=60 Normal >=60 [facility] Comment on above: Performed By: #### C HM7, MGO ####[facility] (DEFAULT)[address] [place] [address] EST GFR,Non >=60 Normal >=60 [facility] Comment on above: Performed By: #### C HM7, MGO ####[facility] (DEFAULT)[address] [place] [address] Glucose [Mass/Vol] 89 mg/dL Normal 70-99 [facility] Comment on above: Performed By: #### C HM7, MGO ####[facility] (DEFAULT)[address] [place] [address] Osmolality [Osmolality] 286 mosm/kg Normal 278-305 [facility] Comment on above: Performed By: #### C HM7, MGO ####[facility] (DEFAULT)[address] [place] [address] Potassium [Moles/Vol] 3.2 mmol/L Low 3.5-5.0 [facility] Comment on above: Performed By: #### C HM7, MGO ####[facility] (DEFAULT)[address] [place] [address] Sodium [Moles/Vol] 139 mmol/L Normal 133-143 [facility] Comment on above: Performed By: #### Lori HM7, MGO ####[facility] (DEFAULT)[address] [place] [address] Urea nitrogen [Mass/Vol] 4 mg/dL Low 7-22 [facility] Comment on above: Performed By: #### C HM7, MGO ####[facility] (DEFAULT)[address] [place] [address] Urea nitrogen/Creatinine [Mass ratio] 8 mg/mg Normal [facility] Comment on above: Performed By: #### Lori HM7, MGO ####[facility] (DEFAULT)[address] [place] [address] MAGNESIUMon 10-26-2021 Magnesium [Mass/Vol] 1.6 mg/dL Normal 1.6-2.6 [facility] Comment on above: Performed By: #### C HM7, MGO ####[facility] (DEFAULT)[address] [place] [address] PTTon 10-26-2021 aPTT Coag (Bld) [Time] 54.6 s High 24.0-34.3 [facility] Comment on above: Order Comment: After initiation a PTT should be checked every 6 hours from time of last dose change or, if dose has not changed, 6 hours after last PTT result posted.? The frequent monitoring should occur until PTT in goal range for two consecutive lab draws without dose changes at which time PTTs may be checked no less frequently than every 12 hours.? If dose requires a change, PTT should be monitored at least every 6 hours until titration is no longer indicated, then as directed above.? If PTT above goal range refer to medication administration instructions. Performed By: #### P TT ####[facility] (DEFAULT)[address] [place] [address] VANCOMYCIN LEVEL, TROUGH (HI E DRUG LEVEL)on 10-26-2021 Vancomycin, Trough 16.1 mcg/mL Normal Therapeut ic Range: 10.0-20.0 mcg/mL [facility] Comment on above: Order Comment: Pleas e draw level at 0100 on 10/26. If vancomycin trough result is > 20, please HOLD next dose. Performed By: #### V ANCTR ####[facility] (DEFAULT)[address] [place] [address] XR CHEST PORTABLEon 10-26-20 XR CHEST PORTABLE Normal [facility] CBC,PLATELETSon 10-25-2021 Hematocrit (Bld) [Volume fraction] 31.2 % Low 34.9-44.3 [facility] Comment on above: Performed By: #### H EMOGC ####[facility] (DEFAULT)[address] [place] [address] Hemoglobin (Bld) [Mass/Vol] 9.9 g/dL Low 11.4-15.2 [facility] Comment on above: Performed By: #### H EMOGC ####[facility] (DEFAULT)[address] [facility] [place] [address] MCV (RBC) [Entitic vol] 86.0 fL Normal 79.6-97.7 [facility] Comment on above: Performed By: #### H EMOGC ####[facility] (DEFAULT)[address] [facility] [place] [address] Mean Cell Hgb 27.3 pg Normal 25.9-33.9 [facility] Comment on above: Performed By: #### H EMOGC ####[facility] (DEFAULT)[address] [facility] [place] [place] [address] Mean Cell Hgb Conc 31.7 g/dL Normal 31.4-35.9 [facility] Comment on above: Performed By: #### H EMOGC ####[facility] (DEFAULT)[address] [facility] [place] [address] Platelet mean volume (Bld) [Entitic vol] 10.8 fL Normal 8.5-12.2 [facility] Comment on above: Performed By: #### H EMOGC ####[facility] (DEFAULT)[address] [place] [address] Platelets (Bld) [#/Vol] 169 10*3/uL Normal 150-393 [facility] Comment on above: Performed By: #### H EMOGC ####[facility] (DEFAULT)[address] [facility] [place] [address] RBC (Bld) [#/Vol] 3.63 10*6/uL Low 3.91-5.04 [facility] Comment on above: Performed By: #### H EMOGC ####[facility] (DEFAULT)[address] [facility] [place] [place] [address] RBC Distribution 15.2 % High 10.8-14.9 [facility] Comment on above: Performed By: #### H EMOGC ####[facility] (DEFAULT)[address] [facility] [place] [address] WBC (Bld) [#/Vol] 8.43 10*3/uL Normal 3.99-11.19 [facility] Comment on above: Performed By: #### H EMO ####[facility] (DEFAULT)[address] [place] [address] CHEM 7 (LYTES,BUN,CREA,GLUC) on 10-25-2021 Anion gap [Moles/Vol] 15 mmol/L Normal 7-17 [facility] Comment on above: Performed By: #### C HM7, MGO ####[facility] (DEFAULT)[address] [facility] [place] [address] Chloride [Moles/Vol] 102 mmol/L Normal 98-108 [facility] Comment on above: Performed By: #### C HM7, MGO ####[facility] (DEFAULT)[address] [facility] [place] [place] [address] CO2 [Moles/Vol] 24 mmol/L Normal 22-30 [facility] Comment on above: Performed By: #### C HM7, MGO ####[facility] (DEFAULT)[address] [facility] [place] [place] [address] Creatinine [Mass/Vol] 0.49 mg/dL Low 0.50-1.20 [facility] Comment on above: Performed By: #### C HM7, MGO ####[facility] (DEFAULT)[address] [place] [address] EST GFR, >=60 Normal >=60 [facility] Comment on above: Performed By: #### C HM7, MGO ####[facility] (DEFAULT)[address] [facility] [place] [place] [address] EST GFR,Non >=60 Normal >=60 [facility] Comment on above: Performed By: #### C HM7, MGO ####[facility] (DEFAULT)[address] [place] [address] Glucose [Mass/Vol] 93 mg/dL Normal 70-99 [facility] Comment on above: Performed By: #### C HM7, MGO ####[facility] (DEFAULT)[address] [place] [address] Osmolality [Osmolality] 283 mosm/kg Normal 278-305 [facility] Comment on above: Performed By: #### C HM7, MGO ####[facility] (DEFAULT)[address] [place] [address] Potassium [Moles/Vol] 3.5 mmol/L Normal 3.5-5.0 [facility] Comment on above: Performed By: #### C HM7, MGO ####[facility] (DEFAULT)[address] [facility] [place] [address] Sodium [Moles/Vol] 137 mmol/L Normal 133-143 [facility] Comment on above: Performed By: #### C HM7, MGO ####[facility] (DEFAULT)[address] [facility] [place] [place] [address] Urea nitrogen [Mass/Vol] 6 mg/dL Low 7-22 [facility] Comment on above: Performed By: #### C HM7, MGO ####[facility] (DEFAULT)[address] [place] [address] Urea nitrogen/Creatinine [Mass ratio] 12 mg/mg Normal [facility] Comment on above: Performed By: #### C HM7, MGO ####[facility] (DEFAULT)[address] [facility] [place] [place] [address] MAGNESIUMon 10-25-2021 Magnesium [Mass/Vol] 1.4 mg/dL Low 1.6-2.6 [facility] Comment on above: Performed By: #### C HM7, MGO ####[facility] (DEFAULT)[address] [place] [address] PTTon 10-25-2021 aPTT Coag (Bld) [Time] 97.3 s High 24.0-34.3 [facility] Comment on above: Order Comment: After initiation a PTT should be checked every 6 hours from time of last dose change or, if dose has not changed, 6 hours after last PTT result posted.? The frequent monitoring should occur until PTT in goal range for two consecutive lab draws without dose changes at which time PTTs may be checked no less frequently than every 12 hours.? If dose requires a change, PTT should be monitored at least every 6 hours until titration is no longer indicated, then as directed above.? If PTT above goal range refer to medication administration instructions. Performed By: #### P TT ####[facility] (DEFAULT)[address] [place] [address] aPTT Coag (Bld) [Time] 101.8 s High 24.0-34.3 [facility] Comment on above: Order Comment: After initiation a PTT should be checked every 6 hours from time of last dose change or, if dose has not changed, 6 hours after last PTT result posted.? The frequent monitoring should occur until PTT in goal range for two consecutive lab draws without dose changes at which time PTTs may be checked no less frequently than every 12 hours.? If dose requires a change, PTT should be monitored at least every 6 hours until titration is no longer indicated, then as directed above.? If PTT above goal range refer to medication administration instructions. Performed By: #### P TT ####[facility] (DEFAULT)[address] [place] [address] aPTT Coag (Bld) [Time] 75.6 s High 24.0-34.3 [facility] Comment on above: Order Comment: After initiation a PTT should be checked every 6 hours from time of last dose change or, if dose has not changed, 6 hours after last PTT result posted.? The frequent monitoring should occur until PTT in goal range for two consecutive lab draws without dose changes at which time PTTs may be checked no less frequently than every 12 hours.? If dose requires a change, PTT should be monitored at least every 6 hours until titration is no longer indicated, then as directed above.? If PTT above goal range refer to medication administration instructions. Performed By: #### P TT ####[facility] (DEFAULT)[address] [facility] [place] [address] XR CHEST PORTABLEon 10-25-20 XR CHEST PORTABLE Normal [facility] XR CHEST PORTABLE Normal [facility] CBC,PLATELETSon 10-24-2021 Hematocrit (Bld) [Volume fraction] 32.6 % Low 34.9-44.3 [facility] Comment on above: Performed By: #### H [facility] ####[facility] (DEFAULT)[address] [place] [address], [place] [address] Hemoglobin (Bld) [Mass/Vol] 10.2 g/dL Low 11.4-15.2 [facility] Comment on above: Performed By: #### H EMO ####[facility] (DEFAULT)[address] [place] [address], [place] [address] MCV (RBC) [Entitic vol] 84.7 fL Normal 79.6-97.7 [facility] Comment on above: Performed By: #### H EMO ####[facility] (DEFAULT)[address] [place] [address], [place] [address] Mean Cell Hgb 26.5 pg Normal 25.9-33.9 [facility] Comment on above: Performed By: #### H EMOGC ####[facility] (DEFAULT)[address] [place] [address], [place] [address] Mean Cell Hgb Conc 31.3 g/dL Low 31.4-35.9 [facility] Comment on above: Performed By: #### H EMOGC ####[facility] (DEFAULT)[address] [place] [address], [place] [address] Platelet mean volume (Bld) [Entitic vol] 11.3 fL Normal 8.5-12.2 [facility] Comment on above: Performed By: #### H EMOGC ####[facility] (DEFAULT)[address] [place] [address] Platelets (Bld) [#/Vol] 167 10*3/uL Normal 150-393 [facility] Comment on above: Performed By: #### H EMO ####[facility] (DEFAULT)[address] [place] [address] RBC (Bld) [#/Vol] 3.85 10*6/uL Low 3.91-5.04 [facility] Comment on above: Performed By: #### H EMO ####[facility] (DEFAULT)[address] [facility] [place] [address] RBC Distribution 15.4 % High 10.8-14.9 [facility] Comment on above: Performed By: #### H EMO ####[facility] (DEFAULT)[address] [facility] [place] [address] WBC (Bld) [#/Vol] 9.85 10*3/uL Normal 3.99-11.19 [facility] Comment on above: Performed By: #### H [facility] ####[facility] (DEFAULT)[address] [facility] [place] [place] [address] CHEM 7 (LYTES,BUN,CREA,GLUC) on 10-24-2021 Anion gap [Moles/Vol] 13 mmol/L Normal 7-17 [facility] Comment on above: Performed By: #### SCOTT YAO ####[facility] (DEFAULT)[address] [facility] [place] [place] [address] Chloride [Moles/Vol] 102 mmol/L Normal 98-108 [facility] Comment on above: Performed By: #### SCOTT YAO ####[facility] (DEFAULT)[address] [place] [address] CO2 [Moles/Vol] 24 mmol/L Normal 22-30 [facility] Comment on above: Performed By: #### Sukhjinder MARKO CHM7 ####[facility] (DEFAULT)[address] [place] [address] Creatinine [Mass/Vol] 0.42 mg/dL Low 0.50-1.20 [facility] Comment on above: Performed By: #### Sukhjinder ZHU CHM7 ####[facility] (DEFAULT)[address] [place] [address] EST GFR, >=60 Normal >=60 [facility] Comment on above: Performed By: #### Sukhjinder ZHU CHM7 ####[facility] (DEFAULT)[address] [place] [address] EST GFR,Non >=60 Normal >=60 [facility] Comment on above: Performed By: #### Sukhjinder ZHU CHM7 ####[facility] (DEFAULT)[address] [place] [address] Glucose [Mass/Vol] 112 mg/dL High 70-99 [facility] Comment on above: Performed By: #### Sukhjinder ZHU CHM7 ####[facility] (DEFAULT)[address] [place] [address] Osmolality [Osmolality] 282 mosm/kg Normal 278-305 [facility] Comment on above: Performed By: #### Sukhjinder ZHU CHM7 ####[facility] (DEFAULT)[address] [place] [address] Potassium [Moles/Vol] 3.2 mmol/L Low 3.5-5.0 [facility] Comment on above: Performed By: #### Sukhjinder ZHU CHM7 ####[facility] (DEFAULT)[address] [place] [address] Sodium [Moles/Vol] 136 mmol/L Normal 133-143 [facility] Comment on above: Performed By: #### Sukhjinder ZHU CHM7 ####[facility] (DEFAULT)[address] [facility] [place] [address] Urea nitrogen [Mass/Vol] 6 mg/dL Low 7-22 [facility] Comment on above: Performed By: #### SCOTT YAO ####[facility] (DEFAULT)[address] [facility] [place] [address] Urea nitrogen/Creatinine [Mass ratio] 14 mg/mg Normal [facility] Comment on above: Performed By: #### SCOTT YAO ####[facility] (DEFAULT)[address] [facility] [place] [place] [address] MAGNESIUMon 10-24-2021 Magnesium [Mass/Vol] 1.4 mg/dL Low 1.6-2.6 [facility] Comment on above: Performed By: #### SCOTT YAO ####[facility] (DEFAULT)[address] [place] [address] PLATELET COUNTon 10-24-2021 Platelet mean volume (Bld) [Entitic vol] 11.3 fL Normal 8.5-12.2 [facility] Comment on above: Performed By: #### P LAT ####[facility] (DEFAULT)[address] [facility] [place] [place] [address] Platelets (Bld) [#/Vol] 152 10*3/uL Normal 150-393 [facility] Comment on above: Performed By: #### P LAT ####[facility] (DEFAULT)[address] [place] [address] PTTon 10-24-2021 aPTT Coag (Bld) [Time] 48.9 s High 24.0-34.3 [facility] Comment on above: Order Comment: After initiation a PTT should be checked every 6 hours from time of last dose change or, if dose has not changed, 6 hours after last PTT result posted.? The frequent monitoring should occur until PTT in goal range for two consecutive lab draws without dose changes at which time PTTs may be checked no less frequently than every 12 hours.? If dose requires a change, PTT should be monitored at least every 6 hours until titration is no longer indicated, then as directed above.? If PTT above goal range refer to medication administration instructions. Performed By: #### P TT ####[facility] (DEFAULT)[address] [place] [address] aPTT Coag (Bld) [Time] s Critically high 24.0-34. 3 [facility] Comment on above: Order Comment: After initiation a PTT should be checked every 6 hours from time of last dose change or, if dose has not changed, 6 hours after last PTT result posted.? The frequent monitoring should occur until PTT in goal range for two consecutive lab draws without dose changes at which time PTTs may be checked no less frequently than every 12 hours.? If dose requires a change, PTT should be monitored at least every 6 hours until titration is no longer indicated, then as directed above.? If PTT above goal range refer to medication administration instructions. Result Comment: Spec imen integrity checked.Repeated and verified Performed By: #### P TT ####[facility] (DEFAULT)[address] [place] [address] aPTT Coag (Bld) [Time] 142.0 s High 24.0-34.3 [facility] Comment on above: Order Comment: After initiation a PTT should be checked every 6 hours from time of last dose change or, if dose has not changed, 6 hours after last PTT result posted.? The frequent monitoring should occur until PTT in goal range for two consecutive lab draws without dose changes at which time PTTs may be checked no less frequently than every 12 hours.? If dose requires a change, PTT should be monitored at least every 6 hours until titration is no longer indicated, then as directed above.? If PTT above goal range refer to medication administration instructions. Performed By: #### P TT ####[facility] (DEFAULT)[address] [place] [address] aPTT Coag (Bld) [Time] 35.3 s High 24.0-34.3 [facility] Comment on above: Order Comment: After initiation a PTT should be checked every 6 hours from time of last dose change or, if dose has not changed, 6 hours after last PTT result posted.? The frequent monitoring should occur until PTT in goal range for two consecutive lab draws without dose changes at which time PTTs may be checked no less frequently than every 12 hours.? If dose requires a change, PTT should be monitored at least every 6 hours until titration is no longer indicated, then as directed above.? If PTT above goal range refer to medication administration instructions. Performed By: #### P TT ####[facility] (DEFAULT)[address] [place] [address] aPTT Coag (Bld) [Time] 55.2 s High 24.0-34.3 [facility] Comment on above: Order Comment: After initiation a PTT should be checked every 6 hours from time of last dose change or, if dose has not changed, 6 hours after last PTT result posted.? The frequent monitoring should occur until PTT in goal range for two consecutive lab draws without dose changes at which time PTTs may be checked no less frequently than every 12 hours.? If dose requires a change, PTT should be monitored at least every 6 hours until titration is no longer indicated, then as directed above.? If PTT above goal range refer to medication administration instructions. Performed By: #### P TT ####[facility] (DEFAULT)[address] [place] [address] XR CHEST PORTABLEon 10-24-20 XR CHEST PORTABLE Normal [facility] XR CHEST PORTABLE Normal [facility] CBC,PLATELETSon 10-23-2021 Hematocrit (Bld) [Volume fraction] 33.5 % Low 34.9-44.3 [facility] Comment on above: Performed By: #### H EMOGC ####[facility] (DEFAULT)[address] [place] [address] Hemoglobin (Bld) [Mass/Vol] 10.3 g/dL Low 11.4-15.2 [facility] Comment on above: Performed By: #### H EMOGC ####[facility] (DEFAULT)[address] [place] [address] MCV (RBC) [Entitic vol] 87.9 fL Normal 79.6-97.7 [facility] Comment on above: Performed By: #### H EMOGC ####[facility] (DEFAULT)[address] [place] [address] Mean Cell Hgb 27.0 pg Normal 25.9-33.9 [facility] Comment on above: Performed By: #### H EMOGC ####[facility] (DEFAULT)[address] [facility] [place] [place] [address] Mean Cell Hgb Conc 30.7 g/dL Low 31.4-35.9 [facility] Comment on above: Performed By: #### H EMOGC ####[facility] (DEFAULT)[address] [facility] [place] [place] [address] Platelet mean volume (Bld) [Entitic vol] 10.9 fL Normal 8.5-12.2 [facility] Comment on above: Performed By: #### H EMOGC ####[facility] (DEFAULT)[address] [facility] [place] [place] [address] Platelets (Bld) [#/Vol] 145 10*3/uL Low 150-393 [facility] Comment on above: Performed By: #### H EMOGC ####[facility] (DEFAULT)[address] [place] [address] RBC (Bld) [#/Vol] 3.81 10*6/uL Low 3.91-5.04 [facility] Comment on above: Performed By: #### H EMOGC ####[facility] (DEFAULT)[address] [facility] [place] [place] [address] RBC Distribution 15.4 % High 10.8-14.9 [facility] Comment on above: Performed By: #### H EMOGC ####[facility] (DEFAULT)[address] [facility] [place] [address] WBC (Bld) [#/Vol] 8.11 10*3/uL Normal 3.99-11.19 [facility] Comment on above: Performed By: #### H [facility] ####[facility] (DEFAULT)[address] [place] [address] CHEM 7 (LYTES,BUN,CREA,GLUC) on 10-23-2021 Anion gap [Moles/Vol] 14 mmol/L Normal 7-17 [facility] Comment on above: Performed By: #### Sukhjinder ZHU CHM7 ####[facility] (DEFAULT)[address] [place] [address] Chloride [Moles/Vol] 102 mmol/L Normal 98-108 [facility] Comment on above: Performed By: #### M MARKO CHM7 ####[facility] (DEFAULT)[address] [place] [address] CO2 [Moles/Vol] 24 mmol/L Normal 22-30 [facility] Comment on above: Performed By: #### M MARKO CHM7 ####[facility] (DEFAULT)[address] [place] [address] Creatinine [Mass/Vol] 0.49 mg/dL Low 0.50-1.20 [facility] Comment on above: Performed By: #### M MARKO, CHM7 ####[facility] (DEFAULT)[address] [place] [address] EST GFR, >=60 Normal >=60 [facility] Comment on above: Performed By: #### M MARKO CHM7 ####[facility] (DEFAULT)[address] [place] [address] EST GFR,Non >=60 Normal >=60 [facility] Comment on above: Performed By: #### M MARKO, CHM7 ####[facility] (DEFAULT)[address] [place] [address] Glucose [Mass/Vol] 93 mg/dL Normal 70-99 [facility] Comment on above: Performed By: #### Sukhjinder ZHU CHM7 ####[facility] (DEFAULT)[address] [place] [address] Osmolality [Osmolality] 283 mosm/kg Normal 278-305 [facility] Comment on above: Performed By: #### Sukhjinder ZHU CHM7 ####[facility] (DEFAULT)[address] [place] [address] Potassium [Moles/Vol] 3.3 mmol/L Low 3.5-5.0 [facility] Comment on above: Performed By: #### GAURAV YAO7 ####[facility] (DEFAULT)[address] [place] [address] Sodium [Moles/Vol] 137 mmol/L Normal 133-143 [facility] Comment on above: Performed By: #### GAURAV YAO7 ####[facility] (DEFAULT)[address] [place] [address] Urea nitrogen [Mass/Vol] 5 mg/dL Low 7-22 [facility] Comment on above: Performed By: #### GAURAV YAO7 ####[facility] (DEFAULT)[address] [place] [address] Urea nitrogen/Creatinine [Mass ratio] 10 mg/mg Normal [facility] Comment on above: Performed By: #### GAURAV YAO7 ####[facility] (DEFAULT)[address] [place] [address] CT CHEST WITHOUT CONTRASTon 10-23-2021 CT CHEST WITHOUT CONTRAST Normal [facility] MAGNESIUMon 10-23-2021 Magnesium [Mass/Vol] 1.6 mg/dL Normal 1.6-2.6 [facility] Comment on above: Performed By: #### Sukhjinder ZHU CHM7 ####[facility] (DEFAULT)[address] [place] [address] PTTon 10-23-2021 aPTT Coag (Bld) [Time] 77.5 s High 24.0-34.3 [facility] Comment on above: Order Comment: After initiation a PTT should be checked every 6 hours from time of last dose change or, if dose has not changed, 6 hours after last PTT result posted.? The frequent monitoring should occur until PTT in goal range for two consecutive lab draws without dose changes at which time PTTs may be checked no less frequently than every 12 hours.? If dose requires a change, PTT should be monitored at least every 6 hours until titration is no longer indicated, then as directed above.? If PTT above goal range refer to medication administration instructions. Performed By: #### P TT ####[facility] (DEFAULT)[address] [place] [address] aPTT Coag (Bld) [Time] 81.3 s High 24.0-34.3 [facility] Comment on above: Order Comment: After initiation a PTT should be checked every 6 hours from time of last dose change or, if dose has not changed, 6 hours after last PTT result posted.? The frequent monitoring should occur until PTT in goal range for two consecutive lab draws without dose changes at which time PTTs may be checked no less frequently than every 12 hours.? If dose requires a change, PTT should be monitored at least every 6 hours until titration is no longer indicated, then as directed above.? If PTT above goal range refer to medication administration instructions. Performed By: #### P TT ####[facility] (DEFAULT)[address] [place] [address] XR CHEST PORTABLEon 10-23-20 XR CHEST PORTABLE Normal [facility] CBC,PLATELETSon 10-22-2021 Hematocrit (Bld) [Volume fraction] 32.0 % Low 34.9-44.3 [facility] Comment on above: Performed By: #### H EMO ####[facility] (DEFAULT)[address] [place] [address] Hemoglobin (Bld) [Mass/Vol] 9.8 g/dL Low 11.4-15.2 [facility] Comment on above: Performed By: #### H EMOGC ####[facility] (DEFAULT)[address] [facility] [place] [address] MCV (RBC) [Entitic vol] 85.8 fL Normal 79.6-97.7 [facility] Comment on above: Performed By: #### H EMOGC ####[facility] (DEFAULT)[address] [place] [address] Mean Cell Hgb 26.3 pg Normal 25.9-33.9 [facility] Comment on above: Performed By: #### H EMOGC ####[facility] (DEFAULT)[address] [facility] [place] [place] [address] Mean Cell Hgb Conc 30.6 g/dL Low 31.4-35.9 [facility] Comment on above: Performed By: #### H EMOGC ####[facility] (DEFAULT)[address] [facility] [place] [place] [address] Platelet mean volume (Bld) [Entitic vol] 10.9 fL Normal 8.5-12.2 [facility] Comment on above: Performed By: #### H EMOGC ####[facility] (DEFAULT)[address] [place] [address] Platelets (Bld) [#/Vol] 116 10*3/uL Low 150-393 [facility] Comment on above: Performed By: #### H EMOGC ####[facility] (DEFAULT)[address] [facility] [place] [place] [address] RBC (Bld) [#/Vol] 3.73 10*6/uL Low 3.91-5.04 [facility] Comment on above: Performed By: #### H EMOGC ####[facility] (DEFAULT)[address] [facility] [place] [place] [address] RBC Distribution 15.3 % High 10.8-14.9 [facility] Comment on above: Performed By: #### H EMOGC ####[facility] (DEFAULT)[address] [place] [address] WBC (Bld) [#/Vol] 5.68 10*3/uL Normal 3.99-11.19 [facility] Comment on above: Performed By: #### H EMOGC ####[facility] (DEFAULT)[address] [place] [address], [place] [address] Hematocrit (Bld) [Volume fraction] 31.0 % Low 34.9-44.3 [facility] Comment on above: Performed By: #### H EMOGC ####[facility] (DEFAULT)[address] [place] [address], [place] [address] Hemoglobin (Bld) [Mass/Vol] 9.8 g/dL Low 11.4-15.2 [facility] Comment on above: Performed By: #### H EMOGC ####[facility] (DEFAULT)[address] [place] [address] MCV (RBC) [Entitic vol] 85.2 fL Normal 79.6-97.7 [facility] Comment on above: Performed By: #### H EMOGC ####[facility] (DEFAULT)[address] [place] [address] Mean Cell Hgb 26.9 pg Normal 25.9-33.9 [facility] Comment on above: Performed By: #### H EMOGC ####[facility] (DEFAULT)[address] [place] [address] Mean Cell Hgb Conc 31.6 g/dL Normal 31.4-35.9 [facility] Comment on above: Performed By: #### H EMOGC ####[facility] (DEFAULT)[address] [place] [address] Platelet mean volume (Bld) [Entitic vol] 11.2 fL Normal 8.5-12.2 [facility] Comment on above: Performed By: #### H EMOGC ####[facility] (DEFAULT)[address] [place] [address] Platelets (Bld) [#/Vol] 160 10*3/uL Normal 150-393 [facility] Comment on above: Performed By: #### H EMO ####[facility] (DEFAULT)[address] [place] [address] RBC (Bld) [#/Vol] 3.64 10*6/uL Low 3.91-5.04 [facility] Comment on above: Performed By: #### H [facility] ####[facility] (DEFAULT)[address] [facility] [place] [place] [address] RBC Distribution 15.2 % High 10.8-14.9 [facility] Comment on above: Performed By: #### H [facility] ####[facility] (DEFAULT)[address] [facility] [place] [place] [address] WBC (Bld) [#/Vol] 4.91 10*3/uL Normal 3.99-11.19 [facility] Comment on above: Performed By: #### H [facility] ####[facility] (DEFAULT)[address] [facility] [place] [place] [address] CHEM 7 (LYTES,BUN,CREA,GLUC) on 10-22-2021 Anion gap [Moles/Vol] 15 mmol/L Normal 7-17 [facility] Comment on above: Performed By: #### SCOTT YAO ####[facility] (DEFAULT)[address] [facility] [place] [place] [address] Chloride [Moles/Vol] 105 mmol/L Normal 98-108 [facility] Comment on above: Performed By: #### SCOTT YAO ####[facility] (DEFAULT)[address] [place] [address] CO2 [Moles/Vol] 22 mmol/L Normal 22-30 [facility] Comment on above: Performed By: #### Sukhjinder ZHU CHM7 ####[facility] (DEFAULT)[address] [place] [address] Creatinine [Mass/Vol] 0.52 mg/dL Normal 0.50-1.20 [facility] Comment on above: Performed By: #### Sukhjinder ZHU CHM7 ####[facility] (DEFAULT)[address] [place] [address] EST GFR, >=60 Normal >=60 [facility] Comment on above: Performed By: #### Sukhjinder ZHU CHM7 ####[facility] (DEFAULT)[address] [place] [address] EST GFR,Non >=60 Normal >=60 [facility] Comment on above: Performed By: #### Sukhjinder ZHU CHM7 ####[facility] (DEFAULT)[address] [place] [address] Glucose [Mass/Vol] 87 mg/dL Normal 70-99 [facility] Comment on above: Performed By: #### Sukhjinder ZHU CHM7 ####[facility] (DEFAULT)[address] [place] [address] Osmolality [Osmolality] 286 mosm/kg Normal 278-305 [facility] Comment on above: Performed By: #### Sukhjinder ZHU CHM7 ####[facility] (DEFAULT)[address] [place] [address] Potassium [Moles/Vol] 3.7 mmol/L Normal 3.5-5.0 [facility] Comment on above: Performed By: #### Sukhjinder ZHU CHM7 ####[facility] (DEFAULT)[address] [place] [address] Sodium [Moles/Vol] 138 mmol/L Normal 133-143 [facility] Comment on above: Performed By: #### Sukhjinder ZHU CHM7 ####[facility] (DEFAULT)[address] [place] [address] Urea nitrogen [Mass/Vol] 8 mg/dL Normal 7-22 [facility] Comment on above: Performed By: #### M GAURAV ZHU7 ####[facility] (DEFAULT)[address] [place] [address] Urea nitrogen/Creatinine [Mass ratio] 15 mg/mg Normal [facility] Comment on above: Performed By: #### GAURAV YAO7 ####[facility] (DEFAULT)[address] [place] [address], [place] [address] MAGNESIUMon 10-22-2021 Magnesium [Mass/Vol] 1.7 mg/dL Normal 1.6-2.6 [facility] Comment on above: Performed By: #### GAURAV YAO7 ####[facility] (DEFAULT)[address] [place] [address] PTTon 10-22-2021 aPTT Coag (Bld) [Time] 67.2 s High 24.0-34.3 [facility] Comment on above: Order Comment: After initiation a PTT should be checked every 6 hours from time of last dose change or, if dose has not changed, 6 hours after last PTT result posted.? The frequent monitoring should occur until PTT in goal range for two consecutive lab draws without dose changes at which time PTTs may be checked no less frequently than every 12 hours.? If dose requires a change, PTT should be monitored at least every 6 hours until titration is no longer indicated, then as directed above.? If PTT above goal range refer to medication administration instructions. Performed By: #### P TT ####[facility] (DEFAULT)[address] [place] [address] aPTT Coag (Bld) [Time] 22.9 s Low 24.0-34.3 [facility] Comment on above: Order Comment: Draw prior to initiation of intravenous Heparin. Result Comment: Spec imen integrity checked. Performed By: #### P TT ####[facility] (DEFAULT)[address] [place] [address], [place] [address] XR ABDOMEN 1 VIEW PORTABLEon 10-22-2021 XR ABDOMEN 1 VIEW PORTABLE Normal [facility] XR CHEST PORTABLEon 10-22-20 XR CHEST PORTABLE Normal [facility] XR CHEST PORTABLE Normal [facility] CBC,PLATELETSon 10-21-2021 Hematocrit (Bld) [Volume fraction] 36.2 % Normal 34.9-44.3 [facility] Comment on above: Performed By: #### H EMOGC ####[facility] (DEFAULT)[address] [place] [address] Hemoglobin (Bld) [Mass/Vol] 11.3 g/dL Low 11.4-15.2 [facility] Comment on above: Performed By: #### H EMOGC ####[facility] (DEFAULT)[address] [place] [address], [place] [address] MCV (RBC) [Entitic vol] 86.6 fL Normal 79.6-97.7 [facility] Comment on above: Performed By: #### H EMOGC ####[facility] (DEFAULT)[address] [place] [address] Mean Cell Hgb 27.0 pg Normal 25.9-33.9 [facility] Comment on above: Performed By: #### H EMOGC ####[facility] (DEFAULT)[address] [place] [address], [place] [address] Mean Cell Hgb Conc 31.2 g/dL Low 31.4-35.9 [facility] Comment on above: Performed By: #### H EMOGC ####[facility] (DEFAULT)[address] [place] [address] Platelet mean volume (Bld) [Entitic vol] 10.5 fL Normal 8.5-12.2 [facility] Comment on above: Performed By: #### H EMOGC ####[facility] (DEFAULT)[address] [place] [address] Platelets (Bld) [#/Vol] 181 10*3/uL Normal 150-393 [facility] Comment on above: Performed By: #### H [facility] ####[facility] (DEFAULT)[address] [facility] [place] [address] RBC (Bld) [#/Vol] 4.18 10*6/uL Normal 3.91-5.04 [facility] Comment on above: Performed By: #### H EMO ####[facility] (DEFAULT)[address] [facility] [place] [place] [address] RBC Distribution 15.7 % High 10.8-14.9 [facility] Comment on above: Performed By: #### H EMO ####[facility] (DEFAULT)[address] [facility] [place] [address] WBC (Bld) [#/Vol] 6.46 10*3/uL Normal 3.99-11.19 [facility] Comment on above: Performed By: #### H [facility] ####[facility] (DEFAULT)[address] [place] [address] CHEM 7 (LYTES,BUN,CREA,GLUC) on 10-21-2021 Anion gap [Moles/Vol] 16 mmol/L Normal 7-17 [facility] Comment on above: Performed By: #### SCOTT YAO ####[facility] (DEFAULT)[address] [facility] [place] [address] Chloride [Moles/Vol] 102 mmol/L Normal 98-108 [facility] Comment on above: Performed By: #### SCOTT YAO ####[facility] (DEFAULT)[address] [facility] [place] [address] CO2 [Moles/Vol] 25 mmol/L Normal 22-30 [facility] Comment on above: Performed By: #### SCOTT YAO ####[facility] (DEFAULT)[address] [place] [address] Creatinine [Mass/Vol] 0.53 mg/dL Normal 0.50-1.20 [facility] Comment on above: Performed By: #### Sukhjinder ZHU CHM7 ####[facility] (DEFAULT)[address] [place] [address] EST GFR, >=60 Normal >=60 [facility] Comment on above: Performed By: #### Sukhjinder ZHU CHM7 ####[facility] (DEFAULT)[address] [place] [address] EST GFR,Non >=60 Normal >=60 [facility] Comment on above: Performed By: #### Sukhjinder ZHU CHM7 ####[facility] (DEFAULT)[address] [place] [address] Glucose [Mass/Vol] 86 mg/dL Normal 70-99 [facility] Comment on above: Performed By: #### Sukhjinder ZHU CHM7 ####[facility] (DEFAULT)[address] [place] [address] Osmolality [Osmolality] 287 mosm/kg Normal 278-305 [facility] Comment on above: Performed By: #### Sukhjinder ZHU CHM7 ####[facility] (DEFAULT)[address] [place] [address] Potassium [Moles/Vol] 3.9 mmol/L Normal 3.5-5.0 [facility] Comment on above: Performed By: #### Sukhjinder ZHU CHM7 ####[facility] (DEFAULT)[address] [place] [address] Sodium [Moles/Vol] 139 mmol/L Normal 133-143 [facility] Comment on above: Performed By: #### Sukhjinder ZHU CHM7 ####[facility] (DEFAULT)[address] [place] [address] Urea nitrogen [Mass/Vol] 6 mg/dL Low 7- [facility] Comment on above: Performed By: #### SCOTT YAO ####[facility] (DEFAULT)[address] [place] [address] Urea nitrogen/Creatinine [Mass ratio] 11 mg/mg Normal [facility] Comment on above: Performed By: #### SCOTT YAO ####[facility] (DEFAULT)[address] [place] [address] MAGNESIUMon 10-21-2021 Magnesium [Mass/Vol] 1.7 mg/dL Normal 1.6-2.6 [facility] Comment on above: Performed By: #### SCOTT YAO ####[facility] (DEFAULT)[address] [place] [address] XR CHEST PORTABLEon 10-21-20 XR CHEST PORTABLE Normal [facility] XR CHEST PORTABLE Normal [facility] XR CHEST PORTABLE Normal [facility] XR CHEST PORTABLE Normal [facility] CBC,PLATELETSon 10-20-2021 Hematocrit (Bld) [Volume fraction] 35.2 % Normal 34.9-44.3 [facility] Comment on above: Performed By: #### H [facility] ####[facility] (DEFAULT)[address] [place] [address] Hemoglobin (Bld) [Mass/Vol] 11.0 g/dL Low 11.4-15.2 [facility] Comment on above: Performed By: #### H [facility] ####[facility] (DEFAULT)[address] [place] [address], [place] [address] MCV (RBC) [Entitic vol] 85.2 fL Normal 79.6-97.7 [facility] Comment on above: Performed By: #### H [facility] ####[facility] (DEFAULT)[address] [place] [address] Mean Cell Hgb 26.6 pg Normal 25.9-33.9 [facility] Comment on above: Performed By: #### H EMOGC ####[facility] (DEFAULT)[address] [place] [address] Mean Cell Hgb Conc 31.3 g/dL Low 31.4-35.9 [facility] Comment on above: Performed By: #### H EMOGC ####[facility] (DEFAULT)[address] [place] [address] Platelet mean volume (Bld) [Entitic vol] 11.0 fL Normal 8.5-12.2 [facility] Comment on above: Performed By: #### H EMOGC ####[facility] (DEFAULT)[address] [place] [address] Platelets (Bld) [#/Vol] 195 10*3/uL Normal 150-393 [facility] Comment on above: Performed By: #### H EMO ####[facility] (DEFAULT)[address] [place] [address] RBC (Bld) [#/Vol] 4.13 10*6/uL Normal 3.91-5.04 [facility] Comment on above: Performed By: #### H EMOGC ####[facility] (DEFAULT)[address] [place] [address] RBC Distribution 15.9 % High 10.8-14.9 [facility] Comment on above: Performed By: #### H EMOGC ####[facility] (DEFAULT)[address] [place] [address] WBC (Bld) [#/Vol] 6.83 10*3/uL Normal 3.99-11.19 [facility] Comment on above: Performed By: #### H EMOGC ####[facility] (DEFAULT)[address] [place] [address] CHEM 7 (LYTES,BUN,CREA,GLUC) on 10-20-2021 Anion gap [Moles/Vol] 16 mmol/L Normal 7-17 [facility] Comment on above: Performed By: #### GAURAV YAO7 ####[facility] (DEFAULT)[address] [place] [address] Chloride [Moles/Vol] 101 mmol/L Normal 98-108 [facility] Comment on above: Performed By: #### GAURAV YAO7 ####[facility] (DEFAULT)[address] [place] [address] CO2 [Moles/Vol] 24 mmol/L Normal 22-30 [facility] Comment on above: Performed By: #### GAURAV YAO7 ####[facility] (DEFAULT)[address] [place] [address] Creatinine [Mass/Vol] 0.48 mg/dL Low 0.50-1.20 [facility] Comment on above: Performed By: #### GAURAV YAO7 ####[facility] (DEFAULT)[address] [place] [address] EST GFR, >=60 Normal >=60 [facility] Comment on above: Performed By: #### Sukhjinder ZHU CHM7 ####[facility] (DEFAULT)[address] [place] [address] EST GFR,Non >=60 Normal >=60 [facility] Comment on above: Performed By: #### Sukhjinder ZHU CHM7 ####[facility] (DEFAULT)[address] [place] [address] Glucose [Mass/Vol] 92 mg/dL Normal 70-99 [facility] Comment on above: Performed By: #### Sukhjinder ZHU CHM7 ####[facility] (DEFAULT)[address] [place] [address] Osmolality [Osmolality] 283 mosm/kg Normal 278-305 [facility] Comment on above: Performed By: #### Sukhjinder ZHU CHM7 ####[facility] (DEFAULT)[address] [place] [address] Potassium [Moles/Vol] 3.5 mmol/L Normal 3.5-5.0 [facility] Comment on above: Performed By: #### Sukhjinder ZHU CHM7 ####[facility] (DEFAULT)[address] [facility] [place] [address] Sodium [Moles/Vol] 137 mmol/L Normal 133-143 [facility] Comment on above: Performed By: #### GAURAV YAO7 ####[facility] (DEFAULT)[address] [facility] [place] [place] [address] Urea nitrogen [Mass/Vol] 6 mg/dL Low - [facility] Comment on above: Performed By: #### GAURAV YAO7 ####[facility] (DEFAULT)[address] [facility] [place] [place] [address] Urea nitrogen/Creatinine [Mass ratio] 13 mg/mg Normal [facility] Comment on above: Performed By: #### Sukhjinder ZHU CHSukhjinder7 ####[facility] (DEFAULT)[address] [facility] [place] [place] [address] MAGNESIUMon 10-20-2021 Magnesium [Mass/Vol] 1.7 mg/dL Normal 1.6-2.6 [facility] Comment on above: Performed By: #### Sukhjinder ZHU CHM7 ####[facility] (DEFAULT)[address] [place] [address] XR CHEST PORTABLEon 10-20-20 XR CHEST PORTABLE Normal [facility] XR CHEST PORTABLE Normal [facility] CBC,PLATELETSon 10-19-2021 Hematocrit (Bld) [Volume fraction] 31.8 % Low 34.9-44.3 [facility] Comment on above: Performed By: #### H [facility] ####[facility] (DEFAULT)[address] [place] [address] Hemoglobin (Bld) [Mass/Vol] 10.0 g/dL Low 11.4-15.2 [facility] Comment on above: Performed By: #### H EMOGC ####[facility] (DEFAULT)[address] [facility] [place] [address] MCV (RBC) [Entitic vol] 85.7 fL Normal 79.6-97.7 [facility] Comment on above: Performed By: #### H EMOGC ####[facility] (DEFAULT)[address] [facility] [place] [place] [address] Mean Cell Hgb 27.0 pg Normal 25.9-33.9 [facility] Comment on above: Performed By: #### H EMOGC ####[facility] (DEFAULT)[address] [place] [address] Mean Cell Hgb Conc 31.4 g/dL Normal 31.4-35.9 [facility] Comment on above: Performed By: #### H EMOGC ####[facility] (DEFAULT)[address] [place] [address], [place] [address] Platelet mean volume (Bld) [Entitic vol] 10.5 fL Normal 8.5-12.2 [facility] Comment on above: Performed By: #### H EMOGC ####[facility] (DEFAULT)[address] [place] [address] Platelets (Bld) [#/Vol] 192 10*3/uL Normal 150-393 [facility] Comment on above: Performed By: #### H EMOGC ####[facility] (DEFAULT)[address] [place] [address] RBC (Bld) [#/Vol] 3.71 10*6/uL Low 3.91-5.04 [facility] Comment on above: Performed By: #### H EMOGC ####[facility] (DEFAULT)[address] [place] [address] RBC Distribution 15.9 % High 10.8-14.9 [facility] Comment on above: Performed By: #### H [facility] ####[facility] (DEFAULT)[address] [facility] [place] [place] [address] WBC (Bld) [#/Vol] 5.55 10*3/uL Normal 3.99-11.19 [facility] Comment on above: Performed By: #### H [facility] ####[facility] (DEFAULT)[address] [place] [address] CHEM 7 (LYTES,BUN,CREA,GLUC) on 10-19-2021 Anion gap [Moles/Vol] 15 mmol/L Normal 7-17 [facility] Comment on above: Performed By: #### C HM7, MGO ####[facility] (DEFAULT)[address] [place] [address], [place] [address] Chloride [Moles/Vol] 102 mmol/L Normal 98-108 [facility] Comment on above: Performed By: #### C HM7, MGO ####[facility] (DEFAULT)[address] [place] [address], [place] [address] CO2 [Moles/Vol] 24 mmol/L Normal 22-30 [facility] Comment on above: Performed By: #### C HM7, MGO ####[facility] (DEFAULT)[address] [place] [address] Creatinine [Mass/Vol] 0.46 mg/dL Low 0.50-1.20 [facility] Comment on above: Performed By: #### C HM7, MGO ####[facility] (DEFAULT)[address] [place] [address] EST GFR, >=60 Normal >=60 [facility] Comment on above: Performed By: #### C HM7, MGO ####[facility] (DEFAULT)[address] [place] [address] EST GFR,Non >=60 Normal >=60 [facility] Comment on above: Performed By: #### Lori HM7, MGO ####[facility] (DEFAULT)[address] [place] [address] Glucose [Mass/Vol] 83 mg/dL Normal 70-99 [facility] Comment on above: Performed By: #### C HM7, MGO ####[facility] (DEFAULT)[address] [place] [address] Osmolality [Osmolality] 283 mosm/kg Normal 278-305 [facility] Comment on above: Performed By: #### C HM7, MGO ####[facility] (DEFAULT)[address] [place] [address] Potassium [Moles/Vol] 3.6 mmol/L Normal 3.5-5.0 [facility] Comment on above: Performed By: #### C HM7, MGO ####[facility] (DEFAULT)[address] [place] [address] Sodium [Moles/Vol] 137 mmol/L Normal 133-143 [facility] Comment on above: Performed By: #### Lori HM7, MGO ####[facility] (DEFAULT)[address] [place] [address] Urea nitrogen [Mass/Vol] 6 mg/dL Low 7-22 [facility] Comment on above: Performed By: #### C HM7, MGO ####[facility] (DEFAULT)[address] [place] [address] Urea nitrogen/Creatinine [Mass ratio] 13 mg/mg Normal [facility] Comment on above: Performed By: #### C HM7, MGO ####[facility] (DEFAULT)[address] [place] [address] MAGNESIUMon 10-19-2021 Magnesium [Mass/Vol] 1.6 mg/dL Normal 1.6-2.6 [facility] Comment on above: Performed By: #### C HM7, MGO ####[facility] (DEFAULT)[address] [place] [address] CBC,PLATELETSon 10-18-2021 Hematocrit (Bld) [Volume fraction] 33.2 % Low 34.9-44.3 [facility] Comment on above: Performed By: #### H EMOGC ####[facility] (DEFAULT)[address] [facility] [place] [place] [address] Hemoglobin (Bld) [Mass/Vol] 10.5 g/dL Low 11.4-15.2 [facility] Comment on above: Performed By: #### H EMOGC ####[facility] (DEFAULT)[address] [facility] [place] [place] [address] MCV (RBC) [Entitic vol] 85.8 fL Normal 79.6-97.7 [facility] Comment on above: Performed By: #### H EMOGC ####[facility] (DEFAULT)[address] [facility] [place] [place] [address] Mean Cell Hgb 27.1 pg Normal 25.9-33.9 [facility] Comment on above: Performed By: #### H EMOGC ####[facility] (DEFAULT)[address] [facility] [place] [place] [address] Mean Cell Hgb Conc 31.6 g/dL Normal 31.4-35.9 [facility] Comment on above: Performed By: #### H EMOGC ####[facility] (DEFAULT)[address] [facility] [place] [place] [address] Platelet mean volume (Bld) [Entitic vol] 10.2 fL Normal 8.5-12.2 [facility] Comment on above: Performed By: #### H EMOGC ####[facility] (DEFAULT)[address] [facility] [place] [address] Platelets (Bld) [#/Vol] 216 10*3/uL Normal 150-393 [facility] Comment on above: Performed By: #### H [facility] ####[facility] (DEFAULT)[address] [place] [address] RBC (Bld) [#/Vol] 3.87 10*6/uL Low 3.91-5.04 [facility] Comment on above: Performed By: #### H EMO ####[facility] (DEFAULT)[address] [facility] [place] [place] [address] RBC Distribution 16.2 % High 10.8-14.9 [facility] Comment on above: Performed By: #### H EMO ####[facility] (DEFAULT)[address] [facility] [place] [place] [address] WBC (Bld) [#/Vol] 5.55 10*3/uL Normal 3.99-11.19 [facility] Comment on above: Performed By: #### H [facility] ####[facility] (DEFAULT)[address] [place] [address] CHEM 7 (LYTES,BUN,CREA,GLUC) on 10-18-2021 Anion gap [Moles/Vol] 18 mmol/L High 7-17 [facility] Comment on above: Performed By: #### GAURAV YAO7 ####[facility] (DEFAULT)[address] [facility] [place] [place] [address] Chloride [Moles/Vol] 103 mmol/L Normal 98-108 [facility] Comment on above: Performed By: #### Sukhjinder ZHU CHM7 ####[facility] (DEFAULT)[address] [facility] [place] [place] [address] CO2 [Moles/Vol] 24 mmol/L Normal 22-30 [facility] Comment on above: Performed By: #### Sukhjinder ZHU CHM7 ####[facility] (DEFAULT)[address] [place] [address] Creatinine [Mass/Vol] 0.55 mg/dL Normal 0.50-1.20 [facility] Comment on above: Performed By: #### SCOTT YAO ####[facility] (DEFAULT)[address] [place] [address] EST GFR, >=60 Normal >=60 [facility] Comment on above: Performed By: #### SCOTT YAO ####[facility] (DEFAULT)[address] [place] [address] EST GFR,Non >=60 Normal >=60 [facility] Comment on above: Performed By: #### SCOTT YAO ####[facility] (DEFAULT)[address] [place] [address] Glucose [Mass/Vol] 92 mg/dL Normal 70-99 [facility] Comment on above: Performed By: #### SCOTT YAO ####[facility] (DEFAULT)[address] [place] [address] Osmolality [Osmolality] 292 mosm/kg Normal 278-305 [facility] Comment on above: Performed By: #### SCOTT YAO ####[facility] (DEFAULT)[address] [place] [address] Potassium [Moles/Vol] 3.9 mmol/L Normal 3.5-5.0 [facility] Comment on above: Performed By: #### SCOTT YAO ####[facility] (DEFAULT)[address] [place] [address] Sodium [Moles/Vol] 141 mmol/L Normal 133-143 [facility] Comment on above: Performed By: #### GAURAV YAO7 ####[facility] (DEFAULT)[address] [place] [address] Urea nitrogen [Mass/Vol] 7 mg/dL Normal 7-22 [facility] Comment on above: Performed By: #### M GAURAV ZHU7 ####[facility] (DEFAULT)[address] [place] [address] Urea nitrogen/Creatinine [Mass ratio] 13 mg/mg Normal [facility] Comment on above: Performed By: #### M GAURAV ZHU7 ####[facility] (DEFAULT)[address] [place] [address] MAGNESIUMon 10-18-2021 Magnesium [Mass/Vol] 1.9 mg/dL Normal 1.6-2.6 [facility] Comment on above: Performed By: #### M GAURAV ZHU7 ####[facility] (DEFAULT)[address] [place] [address] PTTon 10-18-2021 aPTT Coag (Bld) [Time] 63.3 s High 24.0-34.3 [facility] Comment on above: Order Comment: After initiation a PTT should be checked every 6 hours from time of last dose change or, if dose has not changed, 6 hours after last PTT result posted.? The frequent monitoring should occur until PTT in goal range for two consecutive lab draws without dose changes at which time PTTs may be checked no less frequently than every 12 hours.? If dose requires a change, PTT should be monitored at least every 6 hours until titration is no longer indicated, then as directed above.? If PTT above goal range refer to medication administration instructions. Performed By: #### P TT ####[facility] (DEFAULT)[address] [place] [address] CBC,PLATELETSon 10-17-2021 Hematocrit (Bld) [Volume fraction] 30.7 % Low 34.9-44.3 [facility] Comment on above: Performed By: #### H EMO ####[facility] (DEFAULT)[address] [place] [address] Hemoglobin (Bld) [Mass/Vol] 9.4 g/dL Low 11.4-15.2 [facility] Comment on above: Performed By: #### H EMOGC ####[facility] (DEFAULT)[address] [facility] [place] [place] [address] MCV (RBC) [Entitic vol] 86.7 fL Normal 79.6-97.7 [facility] Comment on above: Performed By: #### H EMOGC ####[facility] (DEFAULT)[address] [facility] [place] [address] Mean Cell Hgb 26.6 pg Normal 25.9-33.9 [facility] Comment on above: Performed By: #### H EMOGC ####[facility] (DEFAULT)[address] [facility] [place] [address] Mean Cell Hgb Conc 30.6 g/dL Low 31.4-35.9 [facility] Comment on above: Performed By: #### H EMOGC ####[facility] (DEFAULT)[address] [facility] [place] [address] Platelet mean volume (Bld) [Entitic vol] 10.4 fL Normal 8.5-12.2 [facility] Comment on above: Performed By: #### H EMOGC ####[facility] (DEFAULT)[address] [facility] [place] [address] Platelets (Bld) [#/Vol] 208 10*3/uL Normal 150-393 [facility] Comment on above: Performed By: #### H EMOGC ####[facility] (DEFAULT)[address] [facility] [place] [address] RBC (Bld) [#/Vol] 3.54 10*6/uL Low 3.91-5.04 [facility] Comment on above: Performed By: #### H EMOGC ####[facility] (DEFAULT)[address] [facility] [place] [address] RBC Distribution 16.1 % High 10.8-14.9 [facility] Comment on above: Performed By: #### H EMOGC ####[facility] (DEFAULT)[address] [place] [address] WBC (Bld) [#/Vol] 6.64 10*3/uL Normal 3.99-11.19 [facility] Comment on above: Performed By: #### H [facility] ####[facility] [place] [address] CHEM 7 (LYTES,BUN,CREA,GLUC) on 10-17-2021 Anion gap [Moles/Vol] 14 mmol/L Normal 7-17 [facility] Comment on above: Performed By: #### SCOTT YAO ####[facility] (DEFAULT)[address] [place] [address] Chloride [Moles/Vol] 101 mmol/L Normal 98-108 [facility] Comment on above: Performed By: #### SCOTT YAO ####[facility] (DEFAULT)[address] [facility] [place] [address] CO2 [Moles/Vol] 25 mmol/L Normal 22-30 [facility] Comment on above: Performed By: #### SCOTT YAO ####[facility] (DEFAULT)[address] [place] [address] Creatinine [Mass/Vol] 0.45 mg/dL Low 0.50-1.20 [facility] Comment on above: Performed By: #### SCOTT YAO ####[facility] (DEFAULT)[address] [place] [address] EST GFR, >=60 Normal >=60 [facility] Comment on above: Performed By: #### SCOTT YAO ####[facility] (DEFAULT)[address] [place] [address] EST GFR,Non >=60 Normal >=60 [facility] Comment on above: Performed By: #### SCOTT YAO ####[facility] (DEFAULT)[address] [place] [address] Glucose [Mass/Vol] 109 mg/dL High 70-99 [facility] Comment on above: Performed By: #### Sukhjinder ZHU CHM7 ####[facility] (DEFAULT)[address] [place] [address] Osmolality [Osmolality] 284 mosm/kg Normal 278-305 [facility] Comment on above: Performed By: #### Sukhjinder ZHU CHM7 ####[facility] (DEFAULT)[address] [place] [address] Potassium [Moles/Vol] 3.8 mmol/L Normal 3.5-5.0 [facility] Comment on above: Performed By: #### Sukhjinder ZHU CHSukhjinder7 ####[facility] (DEFAULT)[address] [place] [address] Sodium [Moles/Vol] 136 mmol/L Normal 133-143 [facility] Comment on above: Performed By: #### SCOTT YAO ####[facility] (DEFAULT)[address] [place] [address] Urea nitrogen [Mass/Vol] 8 mg/dL Normal 7-22 [facility] Comment on above: Performed By: #### GAURAV YAO7 ####[facility] (DEFAULT)[address] [place] [address] Urea nitrogen/Creatinine [Mass ratio] 18 mg/mg Normal [facility] Comment on above: Performed By: #### GAURAV YAO7 ####[facility] (DEFAULT)[address] [place] [address] MAGNESIUMon 10-17-2021 Magnesium [Mass/Vol] 1.7 mg/dL Normal 1.6-2.6 [facility] Comment on above: Performed By: #### GAURAV YAO7 ####[facility] (DEFAULT)[address] [place] [address] PTTon 10-17-2021 aPTT Coag (Bld) [Time] 81.7 s High 24.0-34.3 [facility] Comment on above: Order Comment: After initiation a PTT should be checked every 6 hours from time of last dose change or, if dose has not changed, 6 hours after last PTT result posted.? The frequent monitoring should occur until PTT in goal range for two consecutive lab draws without dose changes at which time PTTs may be checked no less frequently than every 12 hours.? If dose requires a change, PTT should be monitored at least every 6 hours until titration is no longer indicated, then as directed above.? If PTT above goal range refer to medication administration instructions. Performed By: #### P TT ####[facility] (DEFAULT)[address] [place] [address] aPTT Coag (Bld) [Time] 107.8 s High 24.0-34.3 [facility] Comment on above: Order Comment: After initiation a PTT should be checked every 6 hours from time of last dose change or, if dose has not changed, 6 hours after last PTT result posted.? The frequent monitoring should occur until PTT in goal range for two consecutive lab draws without dose changes at which time PTTs may be checked no less frequently than every 12 hours.? If dose requires a change, PTT should be monitored at least every 6 hours until titration is no longer indicated, then as directed above.? If PTT above goal range refer to medication administration instructions. Performed By: #### P TT ####[facility] (DEFAULT)[address] [place] [address] aPTT Coag (Bld) [Time] 91.1 s High 24.0-34.3 [facility] Comment on above: Order Comment: After initiation a PTT should be checked every 6 hours from time of last dose change or, if dose has not changed, 6 hours after last PTT result posted.? The frequent monitoring should occur until PTT in goal range for two consecutive lab draws without dose changes at which time PTTs may be checked no less frequently than every 12 hours.? If dose requires a change, PTT should be monitored at least every 6 hours until titration is no longer indicated, then as directed above.? If PTT above goal range refer to medication administration instructions. Performed By: #### P TT ####[facility] (DEFAULT)[address] [place] [address] XR CHEST PORTABLEon 10-17-20 XR CHEST PORTABLE Normal [facility] CBC,PLATELETSon 10-16-2021 Hematocrit (Bld) [Volume fraction] 30.6 % Low 34.9-44.3 [facility] Comment on above: Performed By: #### H EMOGC ####[facility] (DEFAULT)[address] [place] [address] Hemoglobin (Bld) [Mass/Vol] 9.4 g/dL Low 11.4-15.2 [facility] Comment on above: Performed By: #### H EMOGC ####[facility] (DEFAULT)[address] [place] [address] MCV (RBC) [Entitic vol] 86.9 fL Normal 79.6-97.7 [facility] Comment on above: Performed By: #### H EMOGC ####[facility] (DEFAULT)[address] [place] [address] Mean Cell Hgb 26.7 pg Normal 25.9-33.9 [facility] Comment on above: Performed By: #### H EMOGC ####[facility] (DEFAULT)[address] [place] [address] Mean Cell Hgb Conc 30.7 g/dL Low 31.4-35.9 [facility] Comment on above: Performed By: #### H EMOGC ####[facility] (DEFAULT)[address] [place] [address] Platelet mean volume (Bld) [Entitic vol] 10.4 fL Normal 8.5-12.2 [facility] Comment on above: Performed By: #### H EMOGC ####[facility] (DEFAULT)[address] [place] [address] Platelets (Bld) [#/Vol] 205 10*3/uL Normal 150-393 [facility] Comment on above: Performed By: #### H EMO ####[facility] (DEFAULT)[address] [place] [address] RBC (Bld) [#/Vol] 3.52 10*6/uL Low 3.91-5.04 [facility] Comment on above: Performed By: #### H [facility] ####[facility] (DEFAULT)[address] [facility] [place] [address] RBC Distribution 16.5 % High 10.8-14.9 [facility] Comment on above: Performed By: #### H [facility] ####[facility] (DEFAULT)[address] [facility] [place] [address] WBC (Bld) [#/Vol] 5.24 10*3/uL Normal 3.99-11.19 [facility] Comment on above: Performed By: #### H [facility] ####[facility] (DEFAULT)[address] [place] [address] CHEM 7 (LYTES,BUN,CREA,GLUC) on 10-16-2021 Anion gap [Moles/Vol] 14 mmol/L Normal 7-17 [facility] Comment on above: Performed By: #### C HM7, MGO ####[facility] (DEFAULT)[address] [facility] [place] [address] Chloride [Moles/Vol] 104 mmol/L Normal 98-108 [facility] Comment on above: Performed By: #### C HM7, MGO ####[facility] (DEFAULT)[address] [place] [address] CO2 [Moles/Vol] 25 mmol/L Normal 22-30 [facility] Comment on above: Performed By: #### C HM7, MGO ####[facility] (DEFAULT)[address] [place] [address] Creatinine [Mass/Vol] 0.44 mg/dL Low 0.50-1.20 [facility] Comment on above: Performed By: #### C HM7, MGO ####[facility] (DEFAULT)[address] [place] [address] EST GFR, >=60 Normal >=60 [facility] Comment on above: Performed By: #### C HM7, MGO ####[facility] (DEFAULT)[address] [place] [address] EST GFR,Non >=60 Normal >=60 [facility] Comment on above: Performed By: #### C HM7, MGO ####[facility] (DEFAULT)[address] [place] [address] Glucose [Mass/Vol] 88 mg/dL Normal 70-99 [facility] Comment on above: Performed By: #### C HM7, MGO ####[facility] (DEFAULT)[address] [place] [address] Osmolality [Osmolality] 287 mosm/kg Normal 278-305 [facility] Comment on above: Performed By: #### C HM7, MGO ####[facility] (DEFAULT)[address] [place] [address] Potassium [Moles/Vol] 4.0 mmol/L Normal 3.5-5.0 [facility] Comment on above: Performed By: #### C HM7, MGO ####[facility] (DEFAULT)[address] [place] [address] Sodium [Moles/Vol] 139 mmol/L Normal 133-143 [facility] Comment on above: Performed By: #### C HM7, MGO ####[facility] (DEFAULT)[address] [place] [address] Urea nitrogen [Mass/Vol] 4 mg/dL Low 7-22 [facility] Comment on above: Performed By: #### C HM7, MGO ####[facility] (DEFAULT)[address] [place] [address] Urea nitrogen/Creatinine [Mass ratio] 9 mg/mg Normal [facility] Comment on above: Performed By: #### C HM7, MGO ####[facility] (DEFAULT)[address] [place] [address] MAGNESIUMon 10-16-2021 Magnesium [Mass/Vol] 1.7 mg/dL Normal 1.6-2.6 [facility] Comment on above: Performed By: #### C HM7, MGO ####[facility] (DEFAULT)[address] [place] [address] PTTon 10-16-2021 aPTT Coag (Bld) [Time] 86.8 s High 24.0-34.3 [facility] Comment on above: Order Comment: After initiation a PTT should be checked every 6 hours from time of last dose change or, if dose has not changed, 6 hours after last PTT result posted.? The frequent monitoring should occur until PTT in goal range for two consecutive lab draws without dose changes at which time PTTs may be checked no less frequently than every 12 hours.? If dose requires a change, PTT should be monitored at least every 6 hours until titration is no longer indicated, then as directed above.? If PTT above goal range refer to medication administration instructions. Performed By: #### P TT ####[facility] (DEFAULT)[address] [place] [address] aPTT Coag (Bld) [Time] 95.6 s High 24.0-34.3 [facility] Comment on above: Order Comment: After initiation a PTT should be checked every 6 hours from time of last dose change or, if dose has not changed, 6 hours after last PTT result posted.? The frequent monitoring should occur until PTT in goal range for two consecutive lab draws without dose changes at which time PTTs may be checked no less frequently than every 12 hours.? If dose requires a change, PTT should be monitored at least every 6 hours until titration is no longer indicated, then as directed above.? If PTT above goal range refer to medication administration instructions. Performed By: #### P TT ####[facility] (DEFAULT)[address] [place] [address] aPTT Coag (Bld) [Time] 74.8 s High 24.0-34.3 [facility] Comment on above: Order Comment: After initiation a PTT should be checked every 6 hours from time of last dose change or, if dose has not changed, 6 hours after last PTT result posted.? The frequent monitoring should occur until PTT in goal range for two consecutive lab draws without dose changes at which time PTTs may be checked no less frequently than every 12 hours.? If dose requires a change, PTT should be monitored at least every 6 hours until titration is no longer indicated, then as directed above.? If PTT above goal range refer to medication administration instructions. Performed By: #### P TT ####[facility] (DEFAULT)[address] [place] [address] aPTT Coag (Bld) [Time] 64.4 s High 24.0-34.3 [facility] Comment on above: Order Comment: After initiation a PTT should be checked every 6 hours from time of last dose change or, if dose has not changed, 6 hours after last PTT result posted.? The frequent monitoring should occur until PTT in goal range for two consecutive lab draws without dose changes at which time PTTs may be checked no less frequently than every 12 hours.? If dose requires a change, PTT should be monitored at least every 6 hours until titration is no longer indicated, then as directed above.? If PTT above goal range refer to medication administration instructions. Performed By: #### P TT ####[facility] (DEFAULT)[address] [place] [address] XR CHEST PORTABLEon 17-20 21 XR CHEST PORTABLE Normal [facility] XR CHEST PORTABLE Normal [facility] BMP WITHOUT GLUCOSEon 12-16- 2021 Anion gap [Moles/Vol] 12 mmol/L Normal 7-17 [facility] Comment on above: Performed By: #### B MPN ####[facility] (DEFAULT)[address] [place] [address] Calcium [Mass/Vol] 9.0 mg/dL Normal 8.6-10.5 [facility] Comment on above: Performed By: #### B MPN ####[facility] (DEFAULT)[address] [place] [address] Chloride [Moles/Vol] 103 mmol/L Normal 98-108 [facility] Comment on above: Performed By: #### B MPN ####[facility] (DEFAULT)[address] [place] [address] CO2 [Moles/Vol] 25 mmol/L Normal 22-30 [facility] Comment on above: Performed By: #### B MPN ####[facility] (DEFAULT)[address] [place] [address] Creatinine [Mass/Vol] 0.43 mg/dL Low 0.50-1.20 [facility] Comment on above: Performed By: #### B MPN ####[facility] (DEFAULT)[address] [place] [address] EST GFR, >=60 Normal >=60 [facility] Comment on above: Performed By: #### B MPN ####[facility] (DEFAULT)[address] [place] [address] EST GFR,Non >=60 Normal >=60 [facility] Comment on above: Performed By: #### B MPN ####[facility] (DEFAULT)[address] [place] [address] Potassium [Moles/Vol] 3.3 mmol/L Low 3.5-5.0 [facility] Comment on above: Performed By: #### B MPN ####[facility] (DEFAULT)[address] [place] [address] Sodium [Moles/Vol] 137 mmol/L Normal 133-143 [facility] Comment on above: Performed By: #### B MPN ####[facility] (DEFAULT)[address] [place] [address] Urea nitrogen [Mass/Vol] 7 mg/dL Normal 7-22 [facility] Comment on above: Performed By: #### B MPN ####[facility] (DEFAULT)[address] [facility] [place] [address] Urea nitrogen/Creatinine [Mass ratio] 16 mg/mg Normal [facility] Comment on above: Performed By: #### B MPN ####[facility] (DEFAULT)[address] [facility] [place] [place] [address] CBC,PLATELETSon 10-15-2021 Hematocrit (Bld) [Volume fraction] 28.9 % Low 34.9-44.3 [facility] Comment on above: Performed By: #### H EMOGC ####[facility] (DEFAULT)[address] [facility] [place] [address] Hemoglobin (Bld) [Mass/Vol] 9.1 g/dL Low 11.4-15.2 [facility] Comment on above: Performed By: #### H EMOGC ####[facility] (DEFAULT)[address] [facility] [place] [address] MCV (RBC) [Entitic vol] 84.3 fL Normal 79.6-97.7 [facility] Comment on above: Performed By: #### H EMOGC ####[facility] (DEFAULT)[address] [place] [address] Mean Cell Hgb 26.5 pg Normal 25.9-33.9 [facility] Comment on above: Performed By: #### H EMOGC ####[facility] (DEFAULT)[address] [place] [address] Mean Cell Hgb Conc 31.5 g/dL Normal 31.4-35.9 [facility] Comment on above: Performed By: #### H EMO ####[facility] (DEFAULT)[address] [place] [address] Platelet mean volume (Bld) [Entitic vol] 10.0 fL Normal 8.5-12.2 [facility] Comment on above: Performed By: #### H EMO ####[facility] (DEFAULT)[address] [place] [address] Platelets (Bld) [#/Vol] 227 10*3/uL Normal 150-393 [facility] Comment on above: Performed By: #### H EMO ####[facility] (DEFAULT)[address] [place] [address] RBC (Bld) [#/Vol] 3.43 10*6/uL Low 3.91-5.04 [facility] Comment on above: Performed By: #### H EMO ####[facility] (DEFAULT)[address] [place] [address] RBC Distribution 16.5 % High 10.8-14.9 [facility] Comment on above: Performed By: #### H EMOGC ####[facility] (DEFAULT)[address] [place] [address] WBC (Bld) [#/Vol] 6.45 10*3/uL Normal 3.99-11.19 [facility] Comment on above: Performed By: #### H EMOGC ####[facility] (DEFAULT)[address] [place] [address] PT,INR,PTTon 10-15-2021 aPTT Coag (Bld) [Time] 90.7 s High 24.0-34.3 [facility] Comment on above: Performed By: #### P TPTT ####[facility] (DEFAULT)[address] [place] [address] INR Coag (PPP) [Relative time] 1.1 {INR} Normal 0.9-1.1 [facility] Comment on above: Performed By: #### P TPTT ####[facility] (DEFAULT)[address] [place] [address] PT Coag (PPP) [Time] 14.2 s Normal 11.9-14.2 [facility] Comment on above: Performed By: #### P TPTT ####[facility] (DEFAULT)[address] [place] [address] XR CHEST PORTABLEon 10-15-20 XR CHEST PORTABLE Normal [facility] CBC,PLATELETSon 10-14-2021 Hematocrit (Bld) [Volume fraction] 28.9 % Low 34.9-44.3 [facility] Comment on above: Performed By: #### H EMOGC ####[facility] (DEFAULT)[address] [facility] [place] [place] [address] Hemoglobin (Bld) [Mass/Vol] 9.1 g/dL Low 11.4-15.2 [facility] Comment on above: Performed By: #### H EMOGC ####[facility] (DEFAULT)[address] [place] [address] MCV (RBC) [Entitic vol] 84.5 fL Normal 79.6-97.7 [facility] Comment on above: Performed By: #### H EMOGC ####[facility] (DEFAULT)[address] [facility] [place] [place] [address] Mean Cell Hgb 26.6 pg Normal 25.9-33.9 [facility] Comment on above: Performed By: #### H EMOGC ####[facility] (DEFAULT)[address] [place] [address] Mean Cell Hgb Conc 31.5 g/dL Normal 31.4-35.9 [facility] Comment on above: Performed By: #### H EMOGC ####[facility] (DEFAULT)[address] [place] [address] Platelet mean volume (Bld) [Entitic vol] 10.5 fL Normal 8.5-12.2 [facility] Comment on above: Performed By: #### H EMOGC ####[facility] (DEFAULT)[address] [place] [address] Platelets (Bld) [#/Vol] 257 10*3/uL Normal 150-393 [facility] Comment on above: Performed By: #### H EMOGC ####[facility] (DEFAULT)[address] [facility] [place] [place] [address] RBC (Bld) [#/Vol] 3.42 10*6/uL Low 3.91-5.04 [facility] Comment on above: Performed By: #### H EMOGC ####[facility] (DEFAULT)[address] [facility] [place] [place] [address] RBC Distribution 16.4 % High 10.8-14.9 [facility] Comment on above: Performed By: #### H EMOGC ####[facility] (DEFAULT)[address] [facility] [place] [place] [address] WBC (Bld) [#/Vol] 6.90 10*3/uL Normal 3.99-11.19 [facility] Comment on above: Performed By: #### H EMOGC ####[facility] (DEFAULT)[address] [facility] [place] [address] CHEM 7 (LYTES,BUN,CREA,GLUC) on 10-14-2021 Anion gap [Moles/Vol] 13 mmol/L Normal 7-17 [facility] Comment on above: Performed By: #### M GO, CHM7 ####[facility] (DEFAULT)[address] [facility] [place] [place] [address] Chloride [Moles/Vol] 101 mmol/L Normal 98-108 [facility] Comment on above: Performed By: #### SCOTT YAO ####[facility] (DEFAULT)[address] [place] [address] CO2 [Moles/Vol] 28 mmol/L Normal 22-30 [facility] Comment on above: Performed By: #### GAURAV YAO7 ####[facility] (DEFAULT)[address] [place] [address] Creatinine [Mass/Vol] 0.40 mg/dL Low 0.50-1.20 [facility] Comment on above: Performed By: #### SCOTT YAO ####[facility] (DEFAULT)[address] [place] [address] EST GFR, >=60 Normal >=60 [facility] Comment on above: Performed By: #### SCOTT YAO ####[facility] (DEFAULT)[address] [place] [address] EST GFR,Non >=60 Normal >=60 [facility] Comment on above: Performed By: #### SCOTT YAO ####[facility] (DEFAULT)[address] [place] [address] Glucose [Mass/Vol] 112 mg/dL High 70-99 [facility] Comment on above: Performed By: #### SCOTT YAO ####[facility] (DEFAULT)[address] [place] [address] Osmolality [Osmolality] 287 mosm/kg Normal 278-305 [facility] Comment on above: Performed By: #### GAURAV YAO7 ####[facility] (DEFAULT)[address] [place] [address] Potassium [Moles/Vol] 3.9 mmol/L Normal 3.5-5.0 [facility] Comment on above: Performed By: #### M MARKO, CHM7 ####[facility] (DEFAULT)[address] [place] [address] Sodium [Moles/Vol] 138 mmol/L Normal 133-143 [facility] Comment on above: Performed By: #### M MARKO, CHM7 ####[facility] (DEFAULT)[address] [facility] [place] [address] Urea nitrogen [Mass/Vol] 6 mg/dL Low 7-22 [facility] Comment on above: Performed By: #### M MARKO, CHM7 ####[facility] (DEFAULT)[address] [facility] [place] [address] Urea nitrogen/Creatinine [Mass ratio] 15 mg/mg Normal [facility] Comment on above: Performed By: #### M MARKO, CHM7 ####[facility] (DEFAULT)[address] [facility] [place] [place] [address] CT CHEST WITHOUT CONTRASTon 10-14-2021 CT CHEST WITHOUT CONTRAST Normal [facility] MAGNESIUMon 10-14-2021 Magnesium [Mass/Vol] 1.7 mg/dL Normal 1.6-2.6 [facility] Comment on above: Performed By: #### M MARKO, CHM7 ####[facility] (DEFAULT)[address] [place], [place] [address], [place] [address] PT,INR,PTTon 10-14-2021 aPTT Coag (Bld) [Time] 42.1 s High 24.0-34.3 [facility] Comment on above: Performed By: #### P TPTT ####[facility] (DEFAULT)[address] [facility] [place] [place] [address] INR Coag (PPP) [Relative time] 1.1 {INR} Normal 0.9-1.1 [facility] Comment on above: Performed By: #### P TPTT ####[facility] (DEFAULT)[address] [place] [address] PT Coag (PPP) [Time] 14.2 s Normal 11.9-14.2 [facility] Comment on above: Performed By: #### P TPTT ####[facility] (DEFAULT)[address] [place] [address] PTTon 10-14-2021 aPTT Coag (Bld) [Time] 91.9 s High 24.0-34.3 [facility] Comment on above: Order Comment: After initiation a PTT should be checked every 6 hours from time of last dose change or, if dose has not changed, 6 hours after last PTT result posted.? The frequent monitoring should occur until PTT in goal range for two consecutive lab draws without dose changes at which time PTTs may be checked no less frequently than every 12 hours.? If dose requires a change, PTT should be monitored at least every 6 hours until titration is no longer indicated, then as directed above.? If PTT above goal range refer to medication administration instructions. Performed By: #### P TT ####[facility] (DEFAULT)[address] [place] [address] aPTT Coag (Bld) [Time] 77.2 s High 24.0-34.3 [facility] Comment on above: Order Comment: After initiation a PTT should be checked every 6 hours from time of last dose change or, if dose has not changed, 6 hours after last PTT result posted.? The frequent monitoring should occur until PTT in goal range for two consecutive lab draws without dose changes at which time PTTs may be checked no less frequently than every 12 hours.? If dose requires a change, PTT should be monitored at least every 6 hours until titration is no longer indicated, then as directed above.? If PTT above goal range refer to medication administration instructions. Result Comment: Resu lts inconsistent with previous results Performed By: #### P TT ####[facility] (DEFAULT)[address] [place] [address] CALCIUMon 10-13-2021 Calcium [Mass/Vol] 9.0 mg/dL Normal 8.6-10.5 [facility] Comment on above: Performed By: #### C HM7, CA, IPB, HFP, MGO ####[facility] (DEFAULT)[address] [facility] [place] [place] [address] CBC AND ELECTRONIC DIFFon Basophils (Bld) [#/Vol] 10*3/uL Normal 0.00-0.15 [facility] Comment on above: Performed By: #### L [id number] ####[facility] (DEFAULT)[address] [facility] [place] [address] Basophils/100 WBC (Bld) 0.1 % Normal [facility] Comment on above: Performed By: #### L [id number] ####[facility] (DEFAULT)[address] [facility] [place] [address] DIFF STATUS Electronic Differential Normal [facility] Comment on above: Performed By: #### L [id number] ####[facility] (DEFAULT)[address] [place] [address] Eosinophils (Bld) [#/Vol] 0.27 10*3/uL Normal 0.00-0.42 [facility] Comment on above: Performed By: #### L [id number] ####[facility] (DEFAULT)[address] [place] [address] Eosinophils/100 WBC (Bld) 3.5 % Normal [facility] Comment on above: Performed By: #### L [id number] ####[facility] (DEFAULT)[address] [place] [address] Hematocrit (Bld) [Volume fraction] 29.0 % Low 34.9-44.3 [facility] Comment on above: Performed By: #### L [id number] ####[facility] (DEFAULT)[address] [place] [address] Hemoglobin (Bld) [Mass/Vol] 9.2 g/dL Low 11.4-15.2 [facility] Comment on above: Performed By: #### L [id number] ####[facility] (DEFAULT)[address] [facility] [place] [place] [address] Immature Grans % 0.5 % Normal [facility] Comment on above: Performed By: #### L [id number] ####[facility] (DEFAULT)[address] [facility] [place] [place] [address] Immature Grans Absolute 0.04 K/uL Normal <=0.09 [facility] Comment on above: Performed By: #### L [id number] ####[facility] (DEFAULT)[address] [facility] [place] [address] Lymphocytes (Bld) [#/Vol] 0.82 10*3/uL Low 1.16-3.51 [facility] Comment on above: Performed By: #### L AB980 ####[facility] (DEFAULT)[address] [place] [address] Lymphocytes/100 WBC (Bld) 10.7 % Normal [facility] Comment on above: Performed By: #### L [id number] ####[facility] (DEFAULT)[address] [place] [address] MCV (RBC) [Entitic vol] 84.5 fL Normal 79.6-97.7 [facility] Comment on above: Performed By: #### L [id number] ####[facility] (DEFAULT)[address] [facility] [place] [place] [address] Mean Cell Hgb 26.8 pg Normal 25.9-33.9 [facility] Comment on above: Performed By: #### L [id number] ####[facility] (DEFAULT)[address] [facility] [place] [place] [address] Mean Cell Hgb Conc 31.7 g/dL Normal 31.4-35.9 [facility] Comment on above: Performed By: #### L AB980 ####[facility] (DEFAULT)[address] [facility] [place] [place] [address] Monocytes (Bld) [#/Vol] 0.38 10*3/uL Normal 0.22-0.87 [facility] Comment on above: Performed By: #### L AB980 ####[facility] (DEFAULT)[address] [place] [address] Monocytes/100 WBC (Bld) 4.9 % Normal [facility] Comment on above: Performed By: #### L [id number] ####[facility] (DEFAULT)[address] [place] [address] Nucleated RBC 0.0 /100 WBC Normal <=0.2 [facility] Comment on above: Performed By: #### L [id number] ####[facility] (DEFAULT)[address] [place] [address] Platelet mean volume (Bld) [Entitic vol] 10.5 fL Normal 8.5-12.2 [facility] Comment on above: Performed By: #### L [id number] ####[facility] (DEFAULT)[address] [place] [address] Platelets (Bld) [#/Vol] 248 10*3/uL Normal 150-393 [facility] Comment on above: Performed By: #### L AB980 ####[facility] (DEFAULT)[address] [place] [address] RBC (Bld) [#/Vol] 3.43 10*6/uL Low 3.91-5.04 [facility] Comment on above: Performed By: #### L AB980 ####[facility] (DEFAULT)[address] [facility] [place] [address] RBC Distribution 16.3 % High 10.8-14.9 [facility] Comment on above: Performed By: #### L [id number] ####[facility] (DEFAULT)[address] [place] [address] Segs + Bands Auto 80.3 % Normal [facility] Comment on above: Performed By: #### L [id number] ####[facility] (DEFAULT)[address] [facility] [place] [address] Segs + Bands,Absolute Auto 6.17 K/uL Normal 1.64-7.28 [facility] Comment on above: Performed By: #### L [id number] ####[facility] (DEFAULT)[address] [facility] [place] [place] [address] WBC (Bld) [#/Vol] 7.69 10*3/uL Normal 3.99-11.19 [facility] Comment on above: Performed By: #### L AB980 ####[facility] (DEFAULT)[address] [place] [address] CHEM 7 (LYTES,BUN,CREA,GLUC) on 10-13-2021 Anion gap [Moles/Vol] 13 mmol/L Normal 7-17 [facility] Comment on above: Performed By: #### C HM7, CA, IPB, HFP, MGO ####[facility] (DEFAULT)[address] [facility] [place] [address] Chloride [Moles/Vol] 101 mmol/L Normal 98-108 [facility] Comment on above: Performed By: #### C HM7, CA, IPB, HFP, MGO ####[facility] (DEFAULT)[address] [facility] [place] [place] [address] CO2 [Moles/Vol] 29 mmol/L Normal 22-30 [facility] Comment on above: Performed By: #### C HM7, CA, IPB, HFP, MGO ####[facility] (DEFAULT)[address] [facility] [place] [place] [address] Creatinine [Mass/Vol] 0.38 mg/dL Low 0.50-1.20 [facility] Comment on above: Performed By: #### C HM7, CA, IPB, HFP, MGO ####[facility] (DEFAULT)[address] [place] [address] EST GFR, >=60 Normal >=60 [facility] Comment on above: Performed By: #### C HM7, CA, IPB, HFP, MGO ####[facility] (DEFAULT)[address] [place] [address] EST GFR,Non >=60 Normal >=60 [facility] Comment on above: Performed By: #### C HM7, CA, IPB, HFP, MGO ####[facility] (DEFAULT)[address] [facility] [place] [place] [address] Glucose [Mass/Vol] 104 mg/dL High 70-99 [facility] Comment on above: Performed By: #### C HM7, CA, IPB, HFP, MGO ####[facility] (DEFAULT)[address] [place] [address] Osmolality [Osmolality] 288 mosm/kg Normal 278-305 [facility] Comment on above: Performed By: #### C HM7, CA, IPB, HFP, MGO ####[facility] (DEFAULT)[address] [place] [address] Potassium [Moles/Vol] 3.5 mmol/L Normal 3.5-5.0 [facility] Comment on above: Performed By: #### C HM7, CA, IPB, HFP, MGO ####[facility] (DEFAULT)[address] [place] [address] Sodium [Moles/Vol] 139 mmol/L Normal 133-143 [facility] Comment on above: Performed By: #### C HM7, CA, IPB, HFP, MGO ####[facility] (DEFAULT)[address] [place] [address] Urea nitrogen [Mass/Vol] 6 mg/dL Low 7-22 [facility] Comment on above: Performed By: #### C HM7, CA, IPB, HFP, MGO ####[facility] (DEFAULT)[address] [place] [address] Urea nitrogen/Creatinine [Mass ratio] 16 mg/mg Normal [facility] Comment on above: Performed By: #### C HM7, CA, IPB, HFP, MGO ####[facility] (DEFAULT)[address] [place] [address] HEPATIC FUNCTION PANELon Albumin [Mass/Vol] 3.7 g/dL Normal 3.5-5.0 [facility] Comment on above: Performed By: #### C HM7, CA, IPB, HFP, MGO ####[facility] (DEFAULT)[address] [place] [address] ALP [Catalytic activity/Vol] 46 U/L Normal 32-126 [facility] Comment on above: Performed By: #### C HM7, CA, IPB, HFP, MGO ####[facility] (DEFAULT)[address] [place] [address] ALT [Catalytic activity/Vol] 19 U/L Normal 9-48 [facility] Comment on above: Performed By: #### C HM7, CA, IPB, HFP, MGO ####[facility] (DEFAULT)[address] [place] [address] AST [Catalytic activity/Vol] 17 U/L Normal 14-40 [facility] Comment on above: Performed By: #### C HM7, CA, IPB, HFP, MGO ####[facility] (DEFAULT)[address] [place] [address] Bilirubin [Mass/Vol] 1.3 mg/dL Normal <1.5 [facility] Comment on above: Performed By: #### C HM7, CA, IPB, HFP, MGO ####[facility] (DEFAULT)[address] [place] [address] Bilirubin.indirect [Mass/Vol] 0.3 mg/dL High <0.3 [facility] Comment on above: Performed By: #### C HM7, CA, IPB, HFP, MGO ####[facility] (DEFAULT)[address] [place] [address] Protein [Mass/Vol] 6.4 g/dL Normal 6.4-8.3 [facility] Comment on above: Performed By: #### C HM7, CA, IPB, HFP, MGO ####[facility] (DEFAULT)[address] [facility] [place] [address] MAGNESIUMon 10-13-2021 Magnesium [Mass/Vol] 1.7 mg/dL Normal 1.6-2.6 [facility] Comment on above: Performed By: #### C HM7, CA, IPB, HFP, MGO ####[facility] (DEFAULT)[address] [place] [address] NOVEL CORONAVIRUS PCRon 09-30 SARS-CoV-2 (COVID-19) RNA GIRISH+probe Ql (Unsp spec) Not detected Normal NOT DETECTED [facility] Comment on above: Order Comment: Viral transport media or BAL specimen - Collection must be done while wearing N-95 mask, eye protection, gown and gloves. Please label ALL specimens as 2019-nCoV rule out and deliver by hand.This test was performed using performed using real time PCR for the qualitative detection of SARS-CoV-2 nucleic acid and has been approved as Emergency Use Authorization (EUA) for the qualitative detection of SARS-CoV-2 nucleic acid. Result Comment: [facility] results do not preclude SARS-CoV-2 infection and should not be used as the sole basis for treatment or other patient management decisions. Optimum specimen types and timing for peak viral levels during infections caused by SARS-CoV-2 has not been determined. The possibility of a false negative result should especially be considered if the patient's recent exposures or clinical presentation suggest that SARS-CoV-2 infection is probable, and diagnostic tests for other causes of illness (e.g., other respiratory illness) are negative. Collection of a new specimen and re-testing may be necessary if the patient is critically ill or clinically deteriorating. Performed By: #### L [id number] ####[facility] (DEFAULT)[address] [facility] [place] [place] [address] PHOSPHATE, INORGANICon 10-13 Phosphorous 4.6 mg/dL Normal 2.2-4.6 [facility] Comment on above: Performed By: #### C HM7, CA, IPB, HFP, MGO ####[facility] (DEFAULT)[address] [place] [address] PT,INR,PTTon 10-13-2021 aPTT Coag (Bld) [Time] 29.7 s Normal 24.0-34.3 [facility] Comment on above: Performed By: #### P TPTT ####[facility] (DEFAULT)[address] [facility] [place] [place] [address] INR Coag (PPP) [Relative time] 1.3 {INR} High 0.9-1.1 [facility] Comment on above: Performed By: #### P TPTT ####[facility] (DEFAULT)[address] [facility] [place] [place] [address] PT Coag (PPP) [Time] 16.0 s High 11.9-14.2 [facility] Comment on above: Performed By: #### P TPTT ####[facility] (DEFAULT)[address] [place] [address], [place] [address] XR FLUORO MODIFIED BARIUM SW ALLOW WITH SPEECHon 10-06-2021 XR FLUORO MODIFIED BARIUM SWALLOW WITH SPEECH Normal [facility] CHEM 7 (LYTES,BUN,CREA,GLUC) on 10-05-2021 Anion gap [Moles/Vol] 14 mmol/L Normal 7-17 [facility] Comment on above: Performed By: #### I PB, MGO, CHM7 ####[facility] (DEFAULT)[address] [place] [address], [place] [address] Chloride [Moles/Vol] 95 mmol/L Low 98-108 [facility] Comment on above: Performed By: #### I PB MGO CHM7 ####[facility] (DEFAULT)[address] [place] [address] CO2 [Moles/Vol] 30 mmol/L Normal 22-30 [facility] Comment on above: Performed By: #### I PB MGO CHM7 ####[facility] (DEFAULT)[address] [place] [address] Creatinine [Mass/Vol] 0.50 mg/dL Normal 0.50-1.20 [facility] Comment on above: Performed By: #### I GOVIND MGO CHM7 ####[facility] (DEFAULT)[address] [place] [address] EST GFR, >=60 Normal >=60 [facility] Comment on above: Performed By: #### Marychuy FAUST MGO CHM7 ####[facility] (DEFAULT)[address] [place] [address] EST GFR,Non >=60 Normal >=60 [facility] Comment on above: Performed By: #### I PB MGO, CHM7 ####[facility] (DEFAULT)[address] [place] [address] Glucose [Mass/Vol] 121 mg/dL High 70-99 [facility] Comment on above: Performed By: #### I PB MGO, CHM7 ####[facility] (DEFAULT)[address] [place] [address] Osmolality [Osmolality] 292 mosm/kg Normal 278-305 [facility] Comment on above: Performed By: #### I PB, MGO, CHM7 ####[facility] (DEFAULT)[address] [place] [address] Potassium [Moles/Vol] 4.1 mmol/L Normal 3.5-5.0 [facility] Comment on above: Performed By: #### I PB, MGO, CHM7 ####[facility] (DEFAULT)[address] [place] [address] Sodium [Moles/Vol] 135 mmol/L Normal 133-143 [facility] Comment on above: Performed By: #### I PB, MGO, CHM7 ####[facility] (DEFAULT)[address] [facility] [place] [address] Urea nitrogen [Mass/Vol] 32 mg/dL High 7-22 [facility] Comment on above: Performed By: #### I PB, MGO, CHM7 ####[facility] (DEFAULT)[address] [facility] [place] [address] Urea nitrogen/Creatinine [Mass ratio] 64 mg/mg Normal [facility] Comment on above: Performed By: #### I PB, MGO, CHM7 ####[facility] (DEFAULT)[address] [facility] [place] [place] [address] MAGNESIUMon 10-05-2021 Magnesium [Mass/Vol] 2.3 mg/dL Normal 1.6-2.6 [facility] Comment on above: Performed By: #### I PB, MGO, CHM7 ####[facility] (DEFAULT)[address] [facility] [place] [place] [address] PHOSPHATE, INORGANICon 10-05 Phosphorous 4.5 mg/dL Normal 2.2-4.6 [facility] Comment on above: Performed By: #### I PB, MGO, CHM7 ####[facility] (DEFAULT)[address] [facility] [place] [place] [address] XR CHEST PORTABLEon 10-05-20 21 XR CHEST PORTABLE Normal [facility] CBC,PLATELETSon 10-04-2021 Hematocrit (Bld) [Volume fraction] 33.5 % Low 34.9-44.3 [facility] Comment on above: Performed By: #### H EMOGC ####[facility] (DEFAULT)[address] [facility] [place] [place] [address] Hemoglobin (Bld) [Mass/Vol] 10.4 g/dL Low 11.4-15.2 [facility] Comment on above: Performed By: #### H EMOGC ####[facility] (DEFAULT)[address] [facility] [place] [place] [address] MCV (RBC) [Entitic vol] 84.2 fL Normal 79.6-97.7 [facility] Comment on above: Performed By: #### H EMOGC ####[facility] (DEFAULT)[address] [facility] [place] [address] Mean Cell Hgb 26.1 pg Normal 25.9-33.9 [facility] Comment on above: Performed By: #### H EMOGC ####[facility] (DEFAULT)[address] [facility] [place] [place] [address] Mean Cell Hgb Conc 31.0 g/dL Low 31.4-35.9 [facility] Comment on above: Performed By: #### H EMOGC ####[facility] (DEFAULT)[address] [facility] [place] [address] Platelet mean volume (Bld) [Entitic vol] 11.8 fL Normal 8.5-12.2 [facility] Comment on above: Performed By: #### H EMOGC ####[facility] (DEFAULT)[address] [facility] [place] [place] [address] Platelets (Bld) [#/Vol] 283 10*3/uL Normal 150-393 [facility] Comment on above: Performed By: #### H EMOGC ####[facility] (DEFAULT)[address] [facility] [place] [address] RBC (Bld) [#/Vol] 3.98 10*6/uL Normal 3.91-5.04 [facility] Comment on above: Performed By: #### H EMO ####[facility] (DEFAULT)[address] [place] [address] RBC Distribution 15.6 % High 10.8-14.9 [facility] Comment on above: Performed By: #### H EMO ####[facility] (DEFAULT)[address] [place] [address] WBC (Bld) [#/Vol] 15.64 10*3/uL High 3.99-11.19 [facility] Comment on above: Performed By: #### H [facility] ####[facility] (DEFAULT)[address] [place] [address] CHEM 7 (LYTES,BUN,CREA,GLUC) on 10-04-2021 Anion gap [Moles/Vol] 14 mmol/L Normal 7-17 [facility] Comment on above: Performed By: #### C HM7, MGO ####[facility] (DEFAULT)[address] [place] [address] Chloride [Moles/Vol] 95 mmol/L Low 98-108 [facility] Comment on above: Performed By: #### C HM7, MGO ####[facility] (DEFAULT)[address] [place] [address] CO2 [Moles/Vol] 32 mmol/L High 22-30 [facility] Comment on above: Performed By: #### C HM7, MGO ####[facility] (DEFAULT)[address] [place] [address] Creatinine [Mass/Vol] 0.49 mg/dL Low 0.50-1.20 [facility] Comment on above: Performed By: #### C HM7, MGO ####[facility] (DEFAULT)[address] [place] [address] EST GFR, >=60 Normal >=60 [facility] Comment on above: Performed By: #### C HM7, MGO ####[facility] (DEFAULT)[address] [place] [address] EST GFR,Non >=60 Normal >=60 [facility] Comment on above: Performed By: #### C HM7, MGO ####[facility] (DEFAULT)[address] [place] [address] Glucose [Mass/Vol] 134 mg/dL High 70-99 [facility] Comment on above: Performed By: #### C HM7, MGO ####[facility] (DEFAULT)[address] [place] [address] Osmolality [Osmolality] 298 mosm/kg Normal 278-305 [facility] Comment on above: Performed By: #### C HM7, MGO ####[facility] (DEFAULT)[address] [place] [address] Potassium [Moles/Vol] 3.9 mmol/L Normal 3.5-5.0 [facility] Comment on above: Performed By: #### C HM7, MGO ####[facility] (DEFAULT)[address] [place] [address] Sodium [Moles/Vol] 137 mmol/L Normal 133-143 [facility] Comment on above: Performed By: #### C HM7, MGO ####[facility] (DEFAULT)[address] [place] [address] Urea nitrogen [Mass/Vol] 38 mg/dL High 7-22 [facility] Comment on above: Performed By: #### C HM7, MGO ####[facility] (DEFAULT)[address] [place] [address] Urea nitrogen/Creatinine [Mass ratio] 78 mg/mg Normal [facility] Comment on above: Performed By: #### C HM7, MGO ####[facility] (DEFAULT)[address] [place] [address] MAGNESIUMon 10-04-2021 Magnesium [Mass/Vol] 2.0 mg/dL Normal 1.6-2.6 [facility] Comment on above: Performed By: #### C HM7, MGO ####[facility] (DEFAULT)[address] [place] [address] XR CHEST PORTABLEon 10-04-20 XR CHEST PORTABLE Normal [facility] XR CHEST PORTABLE Normal [facility] CHEM 7 (LYTES,BUN,CREA,GLUC) on 10-03-2021 Anion gap [Moles/Vol] 17 mmol/L Normal 7-17 [facility] Comment on above: Performed By: #### C HM7, MGO ####[facility] (DEFAULT)[address] [place] [address] Chloride [Moles/Vol] 93 mmol/L Low 98-108 [facility] Comment on above: Performed By: #### C HM7, MGO ####[facility] (DEFAULT)[address] [facility] [place] [place] [address] CO2 [Moles/Vol] 33 mmol/L High 22-30 [facility] Comment on above: Performed By: #### C HM7, MGO ####[facility] (DEFAULT)[address] [place] [address] Creatinine [Mass/Vol] 0.54 mg/dL Normal 0.50-1.20 [facility] Comment on above: Performed By: #### C HM7, MGO ####[facility] (DEFAULT)[address] [place] [address] EST GFR, >=60 Normal >=60 [facility] Comment on above: Performed By: #### C HM7, MGO ####[facility] (DEFAULT)[address] [place] [address] EST GFR,Non >=60 Normal >=60 [facility] Comment on above: Performed By: #### C HM7, MGO ####[facility] (DEFAULT)[address] [place] [address] Glucose [Mass/Vol] 110 mg/dL High 70-99 [facility] Comment on above: Performed By: #### Lori HM7, MGO ####[facility] (DEFAULT)[address] [place] [address] Osmolality [Osmolality] 301 mosm/kg Normal 278-305 [facility] Center Comment on above: Performed By: #### Lori HM7, MGO ####[facility] (DEFAULT)[address] [place] [address] Potassium [Moles/Vol] 3.5 mmol/L Normal 3.5-5.0 [facility] Comment on above: Performed By: #### Lori HM7, MGO ####[facility] (DEFAULT)[address] [place] [address] Sodium [Moles/Vol] 139 mmol/L Normal 133-143 [facility] Comment on above: Performed By: #### Lori HM7, MGO ####[facility] (DEFAULT)[address] [place] [address] Urea nitrogen [Mass/Vol] 43 mg/dL High 7-22 [facility] Comment on above: Performed By: #### Lori HM7, MGO ####[facility] (DEFAULT)[address] [place] [address] Urea nitrogen/Creatinine [Mass ratio] 80 mg/mg Normal [facility] Comment on above: Performed By: #### Lori HM7, MGO ####[facility] (DEFAULT)[address] [place] [address] MAGNESIUMon 10-03-2021 Magnesium [Mass/Vol] 2.1 mg/dL Normal 1.6-2.6 [facility] Comment on above: Performed By: #### C HM7, MGO ####[facility] (DEFAULT)[address] [place] [address] URINALYSIS REFLEX TO CULTURE PERFORMABLEon 10-03-2021 Appearance (U) Clear Normal Clear [facility] Comment on above: Order Comment: For i ndwelling catheters, specimen collection is acceptable on catheter day 1 and 2 only. ? Performed By: #### U [id number] ####[facility] (DEFAULT)[address] [facility] [place] [address] Bacteria ABSENT Normal ABSENT [facility] Comment on above: Order Comment: For i ndwelling catheters, specimen collection is acceptable on catheter day 1 and 2 only. ? Performed By: #### U [id number] ####[facility] (DEFAULT)[address] [facility] [place] [address] Blood Urine Moderate Abnormal Negative [facility] Comment on above: Order Comment: For i ndwelling catheters, specimen collection is acceptable on catheter day 1 and 2 only. ? Performed By: #### U [id number] ####[facility] (DEFAULT)[address] [facility] [place] [address] Color (U) Yellow Normal Yellow [facility] Comment on above: Order Comment: For i ndwelling catheters, specimen collection is acceptable on catheter day 1 and 2 only. ? Performed By: #### U [id number] ####[facility] (DEFAULT)[address] [facility] [place] [address] Glucose Ql (U) Negative Normal Negative [facility] Comment on above: Order Comment: For i ndwelling catheters, specimen collection is acceptable on catheter day 1 and 2 only. ? Performed By: #### U [id number] ####[facility] (DEFAULT)[address] [facility] [place] [address] Ketones Ql (U) Negative Normal Negative [facility] Comment on above: Order Comment: For i ndwelling catheters, specimen collection is acceptable on catheter day 1 and 2 only. ? Performed By: #### U [id number] ####[facility] (DEFAULT)[address] [place] [address], [place] [address] Leukocyte esterase Test strip Ql (U) Moderate Abnormal Negative [facility] Comment on above: Order Comment: For i ndwelling catheters, specimen collection is acceptable on catheter day 1 and 2 only. ? Performed By: #### U [id number] ####[facility] (DEFAULT)[address] [place] [address], [place] [address] Nitrites Urine Positive Abnormal Negative [facility] Comment on above: Order Comment: For i ndwelling catheters, specimen collection is acceptable on catheter day 1 and 2 only. ? Performed By: #### U [id number] ####[facility] (DEFAULT)[address] [place] [address] pH (U) 6.0 [pH] Normal 5.0-7.0 [facility] Comment on above: Order Comment: For i ndwelling catheters, specimen collection is acceptable on catheter day 1 and 2 only. ? Performed By: #### U [id number] ####[facility] (DEFAULT)[address] [place] [address] Protein Urine 30 mg/dL Abnormal Negative [facility] Comment on above: Order Comment: For i ndwelling catheters, specimen collection is acceptable on catheter day 1 and 2 only. ? Performed By: #### U [id number] ####[facility] (DEFAULT)[address] [place] [address] RBC LM.HPF (Urine sed) [#/Area] /[HPF] Abnormal 0-2 [facility] Comment on above: Order Comment: For i ndwelling catheters, specimen collection is acceptable on catheter day 1 and 2 only. ? Performed By: #### U [id number] ####[facility] (DEFAULT)[address] [place] [address] Specific [place] Urine 1.031 Normal 1.001-1.035 [facility] Comment on above: Order Comment: For i ndwelling catheters, specimen collection is acceptable on catheter day 1 and 2 only. ? Performed By: #### U [id number] ####[facility] (DEFAULT)[address] [place] [address], [place] [address] Squamous/Epithelial Cells 1/hpf = 1+ Normal 1/hpf = 1+, 2-5/hpf = 2+, 0/hpf = 0+, ABSENT [facility] Comment on above: Order Comment: For i ndwelling catheters, specimen collection is acceptable on catheter day 1 and 2 only. ? Performed By: #### U [id number] ####[facility] (DEFAULT)[address] [place] [address], [place] [address] Urobilinogen Urine 1.0 E.U./dL Normal 0.2-1.0 [facility] Comment on above: Order Comment: For i ndwelling catheters, specimen collection is acceptable on catheter day 1 and 2 only. ? Performed By: #### U [id number] ####[facility] (DEFAULT)[address] [place] [address] WBC LM.HPF (Urine sed) [#/Area] /[HPF] Abnormal 0-5 [facility] Comment on above: Order Comment: For i ndwelling catheters, specimen collection is acceptable on catheter day 1 and 2 only. ? Performed By: #### U [id number] ####[facility] (DEFAULT)[address] [place] [address] URINE CULTUREon 10-03-2021 Amikacin [Susceptibility] 4 ug/mL Invalid Interpretation Code [facility] Comment on above: Order Comment: For i ndwelling catheters, specimen collection is acceptable on catheter day 1 and 2 only. Sorensen top vacutainer. Urine must be to the fill line to process (4mls). If minimum volume, send urine in a yellow top vacutainer tube.For indwelling catheters, specimen collection is acceptable on catheter day 1 and 2 only. ? Performed By: #### U R ####[facility] (DEFAULT)[address] [place] [address], [place] [address] Cefepime [Susceptibility] 4 ug/mL Invalid Interpretation Code [facility] Comment on above: Order Comment: For i ndwelling catheters, specimen collection is acceptable on catheter day 1 and 2 only. Sorensen top vacutainer. Urine must be to the fill line to process (4mls). If minimum volume, send urine in a yellow top vacutainer tube.For indwelling catheters, specimen collection is acceptable on catheter day 1 and 2 only. ? Performed By: #### U R ####[facility] (DEFAULT)[address] [place] [address] Ciprofloxacin [Susceptibility] <=0.25 Invalid Interpretation Code [facility] Comment on above: Order Comment: For i ndwelling catheters, specimen collection is acceptable on catheter day 1 and 2 only. Sorensen top vacutainer. Urine must be to the fill line to process (4mls). If minimum volume, send urine in a yellow top vacutainer tube.For indwelling catheters, specimen collection is acceptable on catheter day 1 and 2 only. ? Performed By: #### U R ####[facility] (DEFAULT)[address] [place] [address] Gentamicin [Susceptibility] 2 ug/mL Invalid Interpretation Code [facility] Comment on above: Order Comment: For i ndwelling catheters, specimen collection is acceptable on catheter day 1 and 2 only. Sorensen top vacutainer. Urine must be to the fill line to process (4mls). If minimum volume, send urine in a yellow top vacutainer tube.For indwelling catheters, specimen collection is acceptable on catheter day 1 and 2 only. ? Performed By: #### U R ####[facility] (DEFAULT)[address] [place] [address] Piperacillin+Tazobacta m [Susceptibility] 8 ug/mL Invalid Interpretation Code [facility] Comment on above: Order Comment: For i ndwelling catheters, specimen collection is acceptable on catheter day 1 and 2 only. Sorensen top vacutainer. Urine must be to the fill line to process (4mls). If minimum volume, send urine in a yellow top vacutainer tube.For indwelling catheters, specimen collection is acceptable on catheter day 1 and 2 only. ? Performed By: #### U R ####[facility] (DEFAULT)[address] [place] [address] Tobramycin [Susceptibility] <=1 Invalid Interpretation Code [facility] Comment on above: Order Comment: For i ndwelling catheters, specimen collection is acceptable on catheter day 1 and 2 only. Sorensen top vacutainer. Urine must be to the fill line to process (4mls). If minimum volume, send urine in a yellow top vacutainer tube.For indwelling catheters, specimen collection is acceptable on catheter day 1 and 2 only. ? Performed By: #### U R ####[facility] (DEFAULT)[address] [place] [address] XR CHEST PORTABLEon 10-03-20 XR CHEST PORTABLE Normal [facility] CBC,PLATELETSon 10-02-2021 Hematocrit (Bld) [Volume fraction] 37.4 % Normal 34.9-44.3 [facility] Comment on above: Performed By: #### H [facility] ####[facility] (DEFAULT)[address] [place] [address], [place] [address] Hemoglobin (Bld) [Mass/Vol] 11.5 g/dL Normal 11.4-15.2 [facility] Comment on above: Performed By: #### [facility] ####[facility] (DEFAULT)[address] [place] [address] MCV (RBC) [Entitic vol] 84.4 fL Normal 79.6-97.7 [facility] Comment on above: Performed By: #### H EMOGC ####[facility] (DEFAULT)[address] [place] [address] Mean Cell Hgb 26.0 pg Normal 25.9-33.9 [facility] Comment on above: Performed By: #### H EMOGC ####[facility] (DEFAULT)[address] [facility] [place] [address] Mean Cell Hgb Conc 30.7 g/dL Low 31.4-35.9 [facility] Comment on above: Performed By: #### H EMOGC ####[facility] (DEFAULT)[address] [place] [address] Platelet mean volume (Bld) [Entitic vol] 11.4 fL Normal 8.5-12.2 [facility] Comment on above: Performed By: #### H EMOGC ####[facility] (DEFAULT)[address] [place] [address] Platelets (Bld) [#/Vol] 332 10*3/uL Normal 150-393 [facility] Comment on above: Performed By: #### H EMOGC ####[facility] (DEFAULT)[address] [facility] [place] [address] RBC (Bld) [#/Vol] 4.43 10*6/uL Normal 3.91-5.04 [facility] Comment on above: Performed By: #### H EMOGC ####[facility] (DEFAULT)[address] [facility] [place] [address] RBC Distribution 15.5 % High 10.8-14.9 [facility] Comment on above: Performed By: #### H EMOGC ####[facility] (DEFAULT)[address] [facility] [place] [address] WBC (Bld) [#/Vol] 14.92 10*3/uL High 3.99-11.19 [facility] Comment on above: Performed By: #### H EMOGC ####[facility] (DEFAULT)[address] [place] [address] CHEM 7 (LYTES,BUN,CREA,GLUC) on 10-02-2021 Anion gap [Moles/Vol] 15 mmol/L Normal 7-17 [facility] Comment on above: Performed By: #### M GO, CHM7, IPB ####[facility] (DEFAULT)[address] [facility] [place] [address] Chloride [Moles/Vol] 93 mmol/L Low 98-108 [facility] Comment on above: Performed By: #### SCOTT YAO, IPB ####[facility] (DEFAULT)[address] [place] [address] CO2 [Moles/Vol] 36 mmol/L High 22-30 [facility] Comment on above: Performed By: #### SCOTT YAO, IPB ####[facility] (DEFAULT)[address] [place] [address] Creatinine [Mass/Vol] 0.52 mg/dL Normal 0.50-1.20 [facility] Comment on above: Performed By: #### SCOTT YAO, IPB ####[facility] (DEFAULT)[address] [place] [address] EST GFR, >=60 Normal >=60 [facility] Comment on above: Performed By: #### SCOTT YAO, IPB ####[facility] (DEFAULT)[address] [place] [address] EST GFR,Non >=60 Normal >=60 [facility] Comment on above: Performed By: #### SCOTT YAO, IPB ####[facility] (DEFAULT)[address] [place] [address] Glucose [Mass/Vol] 121 mg/dL High 70-99 [facility] Comment on above: Performed By: #### SCOTT YAO, IPB ####[facility] (DEFAULT)[address] [place] [address] Osmolality [Osmolality] 305 mosm/kg Normal 278-305 [facility] Comment on above: Performed By: #### Sukhjinder ZHU CHMRosario, IPB ####[facility] (DEFAULT)[address] [place] [address] Potassium [Moles/Vol] 3.8 mmol/L Normal 3.5-5.0 [facility] Comment on above: Performed By: #### M PRINCESS ZHUM7, IPB ####[facility] (DEFAULT)[address] [place] [address] Sodium [Moles/Vol] 140 mmol/L Normal 133-143 [facility] Comment on above: Performed By: #### SCOTT YAO, IPB ####[facility] (DEFAULT)[address] [place] [address] Urea nitrogen [Mass/Vol] 44 mg/dL High 7-22 [facility] Comment on above: Performed By: #### SCOTT YAO, IPB ####[facility] (DEFAULT)[address] [place] [address] Urea nitrogen/Creatinine [Mass ratio] 85 mg/mg Normal [facility] Comment on above: Performed By: #### SCOTT YAO, IPB ####[facility] (DEFAULT)[address] [place] [address] MAGNESIUMon 10-02-2021 Magnesium [Mass/Vol] 2.1 mg/dL Normal 1.6-2.6 [facility] Comment on above: Performed By: #### GAURAV YAO7, IPB ####[facility] (DEFAULT)[address] [facility] [place] [address] PHOSPHATE, INORGANICon 10-02 Phosphorous 4.1 mg/dL Normal 2.2-4.6 [facility] Comment on above: Performed By: #### Sukhjinder ZHU CHM7, IPB ####[facility] (DEFAULT)[address] [place] [address] XR CHEST PORTABLEon 10-02-20 21 XR CHEST PORTABLE Normal [facility] CHEM 7 (LYTES,BUN,CREA,GLUC) on 10-01-2021 Anion gap [Moles/Vol] 12 mmol/L Normal 7-17 [facility] Comment on above: Performed By: #### GAURAV YAO7 ####[facility] (DEFAULT)[address] [place] [address] Chloride [Moles/Vol] 91 mmol/L Low 98-108 [facility] Comment on above: Performed By: #### Sukhjinder ZHU CHM7 ####[facility] (DEFAULT)[address] [place] [address] CO2 [Moles/Vol] 39 mmol/L High 22-30 [facility] Comment on above: Performed By: #### GAURAV YAO7 ####[facility] (DEFAULT)[address] [facility] [place] [address] Creatinine [Mass/Vol] 0.48 mg/dL Low 0.50-1.20 [facility] Comment on above: Performed By: #### SCOTT YAO ####[facility] (DEFAULT)[address] [facility] [place] [address] EST GFR, >=60 Normal >=60 [facility] Comment on above: Performed By: #### SCOTT YAO ####[facility] (DEFAULT)[address] [facility] [place] [place] [address] EST GFR,Non >=60 Normal >=60 [facility] Comment on above: Performed By: #### GAURAV YAO7 ####[facility] (DEFAULT)[address] [facility] [place] [address] Glucose [Mass/Vol] 132 mg/dL High 70-99 [facility] Comment on above: Performed By: #### GAURAV YAO7 ####[facility] (DEFAULT)[address] [facility] [place] [address] Osmolality [Osmolality] 302 mosm/kg Normal 278-305 [facility] Comment on above: Performed By: #### GAURAV YAO7 ####[facility] (DEFAULT)[address] [place] [address] Potassium [Moles/Vol] 3.4 mmol/L Low 3.5-5.0 [facility] Comment on above: Performed By: #### Sukhjinder ZHU CHM7 ####[facility] (DEFAULT)[address] [place] [address] Sodium [Moles/Vol] 139 mmol/L Normal 133-143 [facility] Comment on above: Performed By: #### Sukhjinder ZHU CHM7 ####[facility] (DEFAULT)[address] [place] [address] Urea nitrogen [Mass/Vol] 41 mg/dL High 7-22 [facility] Comment on above: Performed By: #### Sukhjinder ZHU CHM7 ####[facility] (DEFAULT)[address] [place] [address] Urea nitrogen/Creatinine [Mass ratio] 85 mg/mg Normal [facility] Comment on above: Performed By: #### Sukhjinder ZHU CHM7 ####[facility] (DEFAULT)[address] [place] [address] MAGNESIUMon 10-01-2021 Magnesium [Mass/Vol] 2.1 mg/dL Normal 1.6-2.6 [facility] Comment on above: Performed By: #### Sukhjinder ZHU CHM7 ####[facility] (DEFAULT)[address] [place] [address] XR CHEST PORTABLEon 10-01-20 21 XR CHEST PORTABLE Normal [facility] CBC,PLATELETSon 09-30-2021 Hematocrit (Bld) [Volume fraction] 35.7 % Normal 34.9-44.3 [facility] Comment on above: Performed By: #### H EMO ####[facility] (DEFAULT)[address] [place] [address] Hemoglobin (Bld) [Mass/Vol] 10.9 g/dL Low 11.4-15.2 [facility] Comment on above: Performed By: #### H EMOGC ####[facility] (DEFAULT)[address] [facility] [place] [address] MCV (RBC) [Entitic vol] 86.0 fL Normal 79.6-97.7 [facility] Comment on above: Performed By: #### H EMOGC ####[facility] (DEFAULT)[address] [place] [address] Mean Cell Hgb 26.3 pg Normal 25.9-33.9 [facility] Comment on above: Performed By: #### H EMOGC ####[facility] (DEFAULT)[address] [facility] [place] [place] [address] Mean Cell Hgb Conc 30.5 g/dL Low 31.4-35.9 [facility] Comment on above: Performed By: #### H EMOGC ####[facility] (DEFAULT)[address] [facility] [place] [address] Platelet mean volume (Bld) [Entitic vol] 11.1 fL Normal 8.5-12.2 [facility] Comment on above: Performed By: #### H EMOGC ####[facility] (DEFAULT)[address] [place] [address] Platelets (Bld) [#/Vol] 309 10*3/uL Normal 150-393 [facility] Comment on above: Performed By: #### H EMOGC ####[facility] (DEFAULT)[address] [facility] [place] [place] [address] RBC (Bld) [#/Vol] 4.15 10*6/uL Normal 3.91-5.04 [facility] Comment on above: Performed By: #### H EMOGC ####[facility] (DEFAULT)[address] [facility] [place] [place] [address] RBC Distribution 15.7 % High 10.8-14.9 [facility] Comment on above: Performed By: #### H EMOGC ####[facility] (DEFAULT)[address] [place] [address] WBC (Bld) [#/Vol] 9.69 10*3/uL Normal 3.99-11.19 [facility] Comment on above: Performed By: #### H [facility] ####[facility] (DEFAULT)[address] [place] [address] CHEM 7 (LYTES,BUN,CREA,GLUC) on 09-30-2021 Anion gap [Moles/Vol] 16 mmol/L Normal 7-17 [facility] Comment on above: Performed By: #### C HM7, MGO ####[facility] (DEFAULT)[address] [place] [address] Chloride [Moles/Vol] 93 mmol/L Low 98-108 [facility] Comment on above: Performed By: #### C HM7, MGO ####[facility] (DEFAULT)[address] [facility] [place] [address] CO2 [Moles/Vol] 36 mmol/L High 22-30 [facility] Comment on above: Performed By: #### C HM7, MGO ####[facility] (DEFAULT)[address] [place] [address] Creatinine [Mass/Vol] 0.52 mg/dL Normal 0.50-1.20 [facility] Comment on above: Performed By: #### C HM7, MGO ####[facility] (DEFAULT)[address] [place] [address] EST GFR, >=60 Normal >=60 [facility] Comment on above: Performed By: #### C HM7, MGO ####[facility] (DEFAULT)[address] [place] [address] EST GFR,Non >=60 Normal >=60 [facility] Comment on above: Performed By: #### C HM7, MGO ####[facility] (DEFAULT)[address] [place] [address] Glucose [Mass/Vol] 124 mg/dL High 70-99 [facility] Comment on above: Performed By: #### C HM7, MGO ####[facility] (DEFAULT)[address] [place] [address] Osmolality [Osmolality] 306 mosm/kg High 278-305 [facility] Comment on above: Performed By: #### C HM7, MGO ####[facility] (DEFAULT)[address] [place] [address] Potassium [Moles/Vol] 3.6 mmol/L Normal 3.5-5.0 [facility] Comment on above: Performed By: #### Lori HM7, MGO ####[facility] (DEFAULT)[address] [place] [address] Sodium [Moles/Vol] 141 mmol/L Normal 133-143 [facility] Comment on above: Performed By: #### Lori HM7, MGO ####[facility] (DEFAULT)[address] [place] [address] Urea nitrogen [Mass/Vol] 42 mg/dL High 7-22 [facility] Comment on above: Performed By: #### Lori HM7, MGO ####[facility] (DEFAULT)[address] [place] [address] Urea nitrogen/Creatinine [Mass ratio] 81 mg/mg Normal [facility] Comment on above: Performed By: #### C HM7, MGO ####[facility] (DEFAULT)[address] [place] [address] MAGNESIUMon 09-30-2021 Magnesium [Mass/Vol] 2.2 mg/dL Normal 1.6-2.6 [facility] Comment on above: Performed By: #### C HM7, MGO ####[facility] (DEFAULT)[address] [place] [address] XR CHEST PORTABLEon 09-30-20 XR CHEST PORTABLE Normal [facility] CHEM 7 (LYTES,BUN,CREA,GLUC) on 09-29-2021 Anion gap [Moles/Vol] 14 mmol/L Normal 7-17 [facility] Comment on above: Performed By: #### I PB, CHM7, MGO ####[facility] (DEFAULT)[address] [place] [address] Chloride [Moles/Vol] 93 mmol/L Low 98-108 [facility] Comment on above: Performed By: #### I PB, CHM7, MGO ####[facility] (DEFAULT)[address] [facility] [place] [address] CO2 [Moles/Vol] 38 mmol/L High 22-30 [facility] Comment on above: Performed By: #### I PB, CHM7, MGO ####[facility] (DEFAULT)[address] [facility] [place] [address] Creatinine [Mass/Vol] 0.48 mg/dL Low 0.50-1.20 [facility] Comment on above: Performed By: #### I PB, CHM7, MGO ####[facility] (DEFAULT)[address] [facility] [place] [address] EST GFR, >=60 Normal >=60 [facility] Comment on above: Performed By: #### I PB, CHM7, MGO ####[facility] (DEFAULT)[address] [facility] [place] [address] EST GFR,Non >=60 Normal >=60 [facility] Comment on above: Performed By: #### I PB, CHM7, MGO ####[facility] (DEFAULT)[address] [place] [address] Glucose [Mass/Vol] 135 mg/dL High 70-99 [facility] Comment on above: Performed By: #### I PB, CHM7, MGO ####[facility] (DEFAULT)[address] [place] [address] Osmolality [Osmolality] 306 mosm/kg High 278-305 [facility] Comment on above: Performed By: #### I PB, CHM7, MGO ####[facility] (DEFAULT)[address] [place] [address] Potassium [Moles/Vol] 3.5 mmol/L Normal 3.5-5.0 [facility] Comment on above: Performed By: #### I PB, CHM7, MGO ####[facility] (DEFAULT)[address] [place] [address] Sodium [Moles/Vol] 141 mmol/L Normal 133-143 [facility] Comment on above: Performed By: #### I PB, CHM7, MGO ####[facility] (DEFAULT)[address] [place] [address] Urea nitrogen [Mass/Vol] 42 mg/dL High 7-22 [facility] Comment on above: Performed By: #### I PB, CHM7, MGO ####[facility] (DEFAULT)[address] [facility] [place] [address] Urea nitrogen/Creatinine [Mass ratio] 88 mg/mg Normal [facility] Comment on above: Performed By: #### I PB, CHM7, MGO ####[facility] (DEFAULT)[address] [facility] [place] [address] MAGNESIUMon 09-29-2021 Magnesium [Mass/Vol] 1.9 mg/dL Normal 1.6-2.6 [facility] Comment on above: Performed By: #### I PB, CHM7, MGO ####[facility] (DEFAULT)[address] [facility] [place] [address] PHOSPHATE, INORGANICon 09-29 Phosphorous 4.7 mg/dL High 2.2-4.6 [facility] Comment on above: Performed By: #### I PB, CHM7, MGO ####[facility] (DEFAULT)[address] [facility] [place] [address] XR CHEST PORTABLEon 09-29-20 XR CHEST PORTABLE Normal [facility] ANTI XA LMWH (ENOXAPARIN),*E XACT TIME REQUIRED* 4 HR Sourav 09-28-2021 Anti Xa LMWH (Enoxaparin) 4 Hr Post 0.84 Anti-Xa IU/mL Normal 0.60-1.00 [facility] Comment on above: Order Comment: Draw 4 hours after enoxaparin dose Result Comment: Ther apeutic range applies to 4 hour post dose collections. Performed By: #### A XLMPK ####[facility] (DEFAULT)[address] [place] [address] CBC,PLATELETSon 09-28-2021 Hematocrit (Bld) [Volume fraction] 33.0 % Low 34.9-44.3 [facility] Comment on above: Performed By: #### H [facility] ####[facility] (DEFAULT)[address] [place] [address] Hemoglobin (Bld) [Mass/Vol] 9.7 g/dL Low 11.4-15.2 [facility] Comment on above: Performed By: #### H EMO ####[facility] (DEFAULT)[address] [place] [address] MCV (RBC) [Entitic vol] 85.9 fL Normal 79.6-97.7 [facility] Comment on above: Performed By: #### H EMO ####[facility] (DEFAULT)[address] [place] [address] Mean Cell Hgb 25.3 pg Low 25.9-33.9 [facility] Comment on above: Performed By: #### H EMO ####[facility] (DEFAULT)[address] [place] [address] Mean Cell Hgb Conc 29.4 g/dL Low 31.4-35.9 [facility] Comment on above: Performed By: #### H EMOGC ####[facility] (DEFAULT)[address] [facility] [place] [address] Platelet mean volume (Bld) [Entitic vol] 10.7 fL Normal 8.5-12.2 [facility] Comment on above: Performed By: #### H EMOGC ####[facility] (DEFAULT)[address] [facility] [place] [place] [address] Platelets (Bld) [#/Vol] 289 10*3/uL Normal 150-393 [facility] Comment on above: Performed By: #### H EMOGC ####[facility] (DEFAULT)[address] [place] [address] RBC (Bld) [#/Vol] 3.84 10*6/uL Low 3.91-5.04 [facility] Comment on above: Performed By: #### H EMOGC ####[facility] (DEFAULT)[address] [place] [address] RBC Distribution 15.8 % High 10.8-14.9 [facility] Comment on above: Performed By: #### H EMOGC ####[facility] (DEFAULT)[address] [place] [address] WBC (Bld) [#/Vol] 9.05 10*3/uL Normal 3.99-11.19 [facility] Comment on above: Performed By: #### H EMOGC ####[facility] (DEFAULT)[address] [place] [address] CHEM 7 (LYTES,BUN,CREA,GLUC) on 09-28-2021 Anion gap [Moles/Vol] 13 mmol/L Normal 7-17 [facility] Comment on above: Performed By: #### GAURAV YAO7 ####[facility] (DEFAULT)[address] [place] [address] Chloride [Moles/Vol] 93 mmol/L Low 98-108 [facility] Comment on above: Performed By: #### GAURAV YAO7 ####[facility] (DEFAULT)[address] [place] [address] CO2 [Moles/Vol] 39 mmol/L High 22-30 [facility] Comment on above: Performed By: #### GAURAV YAO7 ####[facility] (DEFAULT)[address] [place] [address] Creatinine [Mass/Vol] 0.49 mg/dL Low 0.50-1.20 [facility] Comment on above: Performed By: #### SCOTT YAO ####[facility] (DEFAULT)[address] [place] [address] EST GFR, >=60 Normal >=60 [facility] Comment on above: Performed By: #### GAURAV YAO7 ####[facility] (DEFAULT)[address] [place] [address] EST GFR,Non >=60 Normal >=60 [facility] Comment on above: Performed By: #### GAURAV YAO7 ####[facility] (DEFAULT)[address] [place] [address] Glucose [Mass/Vol] 105 mg/dL High 70-99 [facility] Comment on above: Performed By: #### GAURAV YAO7 ####[facility] (DEFAULT)[address] [place] [address] Osmolality [Osmolality] 304 mosm/kg Normal 278-305 [facility] Comment on above: Performed By: #### GAURAV YAO7 ####[facility] (DEFAULT)[address] [facility] [place] [address] Potassium [Moles/Vol] 3.8 mmol/L Normal 3.5-5.0 [facility] Comment on above: Performed By: #### Sukhjinder ZHU CHM7 ####[facility] (DEFAULT)[address] [facility] [place] [address] Sodium [Moles/Vol] 141 mmol/L Normal 133-143 [facility] Comment on above: Performed By: #### Sukhjinder ZHU CHM7 ####[facility] (DEFAULT)[address] [facility] [place] [address] Urea nitrogen [Mass/Vol] 38 mg/dL High - [facility] Comment on above: Performed By: #### Sukhjinder ZHU CHM7 ####[facility] (DEFAULT)[address] [place], [place] [address], [place] [address] Urea nitrogen/Creatinine [Mass ratio] 78 mg/mg Normal [facility] Comment on above: Performed By: #### Sukhjinder ZHU CHM7 ####[facility] (DEFAULT)[address] [place] [address], [place] [address] MAGNESIUMon 09-28-2021 Magnesium [Mass/Vol] 2.0 mg/dL Normal 1.6-2.6 [facility] Comment on above: Performed By: #### Sukhjinder ZHU CHM7 ####[facility] (DEFAULT)[address] [place] [address] XR CHEST PORTABLEon 09-28-20 21 XR CHEST PORTABLE Normal [facility] XR CHEST PORTABLE Normal [facility] XR CHEST PORTABLE Normal [facility] CHEM 7 (LYTES,BUN,CREA,GLUC) on 09-27-2021 Anion gap [Moles/Vol] 13 mmol/L Normal 7-17 [facility] Comment on above: Performed By: #### Sukhjinder ZHU CHM7 ####[facility] (DEFAULT)[address] [place] [address] Chloride [Moles/Vol] 94 mmol/L Low 98-108 [facility] Comment on above: Performed By: #### GAURAV YAO7 ####[facility] (DEFAULT)[address] [place] [address] CO2 [Moles/Vol] 37 mmol/L High 22-30 [facility] Comment on above: Performed By: #### GAURAV YAO7 ####[facility] (DEFAULT)[address] [place] [address] Creatinine [Mass/Vol] 0.44 mg/dL Low 0.50-1.20 [facility] Comment on above: Performed By: #### GAURAV YAO7 ####[facility] (DEFAULT)[address] [place] [address] EST GFR, >=60 Normal >=60 [facility] Comment on above: Performed By: #### SCOTT YAO ####[facility] (DEFAULT)[address] [place] [address] EST GFR,Non >=60 Normal >=60 [facility] Comment on above: Performed By: #### GAURAV YAO7 ####[facility] (DEFAULT)[address] [place] [address] Glucose [Mass/Vol] 101 mg/dL High 70-99 [facility] Comment on above: Performed By: #### GAURAV YAO7 ####[facility] (DEFAULT)[address] [place] [address] Osmolality [Osmolality] 301 mosm/kg Normal 278-305 [facility] Comment on above: Performed By: #### GAURAV YAO7 ####[facility] (DEFAULT)[address] [place] [address] Potassium [Moles/Vol] 3.8 mmol/L Normal 3.5-5.0 [facility] Comment on above: Performed By: #### Sukhjinder ZHU CHM7 ####[facility] (DEFAULT)[address] [place] [address] Sodium [Moles/Vol] 140 mmol/L Normal 133-143 [facility] Comment on above: Performed By: #### Sukhjinder ZHU CHM7 ####[facility] (DEFAULT)[address] [place] [address] Urea nitrogen [Mass/Vol] 37 mg/dL High 7-22 [facility] Comment on above: Performed By: #### GAURAV YAO7 ####[facility] (DEFAULT)[address] [place] [address] Urea nitrogen/Creatinine [Mass ratio] 84 mg/mg Normal [facility] Comment on above: Performed By: #### GAURAV YAO7 ####[facility] (DEFAULT)[address] [place] [address], [place] [address] MAGNESIUMon 09-27-2021 Magnesium [Mass/Vol] 2.1 mg/dL Normal 1.6-2.6 [facility] Comment on above: Performed By: #### Sukhjinder ZHU CHM7 ####[facility] (DEFAULT)[address] [place] [address] XR CHEST PORTABLEon 09-27-20 21 XR CHEST PORTABLE Normal [facility] XR CHEST PORTABLE Normal [facility] ANTI XA LMWH (ENOXAPARIN),*E XACT TIME REQUIRED* 4 HR Sourav 09-26-2021 Anti Xa LMWH (Enoxaparin) 4 Hr Post 1.18 Anti-Xa IU/mL High 0.60-1.00 [facility] Comment on above: Order Comment: Draw 4 hours after enoxaparin dose Result Comment: Ther apeutic range applies to 4 hour post dose collections. Performed By: #### A XLMPK ####[facility] (DEFAULT)[address] [place] [address] CBC,PLATELETSon 09-26-2021 Hematocrit (Bld) [Volume fraction] 31.2 % Low 34.9-44.3 [facility] Comment on above: Performed By: #### H EMOGC ####[facility] (DEFAULT)[address] [place] [address], [place] [address] Hemoglobin (Bld) [Mass/Vol] 9.3 g/dL Low 11.4-15.2 [facility] Comment on above: Performed By: #### H EMOGC ####[facility] (DEFAULT)[address] [place] [address], [place] [address] MCV (RBC) [Entitic vol] 86.7 fL Normal 79.6-97.7 [facility] Comment on above: Performed By: #### H EMOGC ####[facility] (DEFAULT)[address] [place] [address], [place] [address] Mean Cell Hgb 25.8 pg Low 25.9-33.9 [facility] Comment on above: Performed By: #### H EMOGC ####[facility] (DEFAULT)[address] [place] [address], [place] [address] Mean Cell Hgb Conc 29.8 g/dL Low 31.4-35.9 [facility] Comment on above: Performed By: #### H EMOGC ####[facility] (DEFAULT)[address] [place], [place] [address], [place] [address] Platelet mean volume (Bld) [Entitic vol] 11.0 fL Normal 8.5-12.2 [facility] Comment on above: Performed By: #### H EMOGC ####[facility] (DEFAULT)[address] [place] [address] Platelets (Bld) [#/Vol] 266 10*3/uL Normal 150-393 [facility] Comment on above: Performed By: #### H EMOGC ####[facility] (DEFAULT)[address] [place] [address] RBC (Bld) [#/Vol] 3.60 10*6/uL Low 3.91-5.04 [facility] Comment on above: Performed By: #### H [facility] ####[facility] (DEFAULT)[address] [place] [address] RBC Distribution 15.9 % High 10.8-14.9 [facility] Comment on above: Performed By: #### H [facility] ####[facility] (DEFAULT)[address] [facility] [place] [address] WBC (Bld) [#/Vol] 11.24 10*3/uL High 3.99-11.19 [facility] Comment on above: Performed By: #### H [facility] ####[facility] (DEFAULT)[address] [place] [address] CHEM 7 (LYTES,BUN,CREA,GLUC) on 09-26-2021 Anion gap [Moles/Vol] 12 mmol/L Normal 7-17 [facility] Comment on above: Performed By: #### I PB, MGO, CHM7 ####[facility] (DEFAULT)[address] [place] [address] Chloride [Moles/Vol] 92 mmol/L Low 98-108 [facility] Comment on above: Performed By: #### I PB, MGO, CHM7 ####[facility] (DEFAULT)[address] [place] [address] CO2 [Moles/Vol] 40 mmol/L High 22-30 [facility] Comment on above: Performed By: #### I PB, MGO, CHM7 ####[facility] (DEFAULT)[address] [place] [address] Creatinine [Mass/Vol] 0.42 mg/dL Low 0.50-1.20 [facility] Comment on above: Performed By: #### I PB, MGO, CHM7 ####[facility] (DEFAULT)[address] [place] [address] EST GFR, >=60 Normal >=60 [facility] Comment on above: Performed By: #### I PB, MGO, CHM7 ####[facility] (DEFAULT)[address] [place] [address] EST GFR,Non >=60 Normal >=60 [facility] Comment on above: Performed By: #### I PB, MGO, CHM7 ####[facility] (DEFAULT)[address] [place] [address] Glucose [Mass/Vol] 112 mg/dL High 70-99 [facility] Comment on above: Performed By: #### I PB, MGO, CHM7 ####[facility] (DEFAULT)[address] [place] [address] Osmolality [Osmolality] 301 mosm/kg Normal 278-305 [facility] Comment on above: Performed By: #### I PB, MGO, CHM7 ####[facility] (DEFAULT)[address] [place] [address] Potassium [Moles/Vol] 3.2 mmol/L Low 3.5-5.0 [facility] Comment on above: Performed By: #### I PB, MGO, CHM7 ####[facility] (DEFAULT)[address] [place] [address] Sodium [Moles/Vol] 141 mmol/L Normal 133-143 [facility] Comment on above: Performed By: #### I PB, MGO, CHM7 ####[facility] (DEFAULT)[address] [place] [address] Urea nitrogen [Mass/Vol] 33 mg/dL High 7-22 [facility] Comment on above: Performed By: #### I PB, MGO, CHM7 ####[facility] (DEFAULT)[address] [place] [address] Urea nitrogen/Creatinine [Mass ratio] 79 mg/mg Normal [facility] Comment on above: Performed By: #### I PB, MGO, CHM7 ####[facility] (DEFAULT)[address] [facility] [place] [place] [address] MAGNESIUMon 09-26-2021 Magnesium [Mass/Vol] 1.9 mg/dL Normal 1.6-2.6 [facility] Comment on above: Performed By: #### I PB, MGO, CHM7 ####[facility] (DEFAULT)[address] [place] [address] PHOSPHATE, INORGANICon 09-26 Phosphorous 4.2 mg/dL Normal 2.2-4.6 [facility] Comment on above: Performed By: #### I PB, MGO, CHM7 ####[facility] (DEFAULT)[address] [place] [address] XR CHEST PORTABLEon 09-26-20 XR CHEST PORTABLE Normal [facility] XR CHEST PORTABLE Normal [facility] CHEM 7 (LYTES,BUN,CREA,GLUC) on 09-25-2021 Anion gap [Moles/Vol] 11 mmol/L Normal 7-17 [facility] Comment on above: Performed By: #### C HM7, MGO ####[facility] (DEFAULT)[address] [place] [address] Chloride [Moles/Vol] 92 mmol/L Low 98-108 [facility] Comment on above: Performed By: #### C HM7, MGO ####[facility] (DEFAULT)[address] [place] [address] CO2 [Moles/Vol] 42 mmol/L Critically high 22-30 [facility] Comment on above: Performed By: #### C HM7, MGO ####[facility] (DEFAULT)[address] [place] [address] Creatinine [Mass/Vol] 0.41 mg/dL Low 0.50-1.20 [facility] Comment on above: Performed By: #### C HM7, MGO ####[facility] (DEFAULT)[address] [place] [address] EST GFR, >=60 Normal >=60 [facility] Comment on above: Performed By: #### C HM7, MGO ####[facility] (DEFAULT)[address] [place] [address] EST GFR,Non >=60 Normal >=60 [facility] Comment on above: Performed By: #### C HM7, MGO ####[facility] (DEFAULT)[address] [place] [address] Glucose [Mass/Vol] 121 mg/dL High 70-99 [facility] Comment on above: Performed By: #### C HM7, MGO ####[facility] (DEFAULT)[address] [place] [address] Osmolality [Osmolality] 303 mosm/kg Normal 278-305 [facility] Comment on above: Performed By: #### C HM7, MGO ####[facility] (DEFAULT)[address] [place] [address] Potassium [Moles/Vol] 3.2 mmol/L Low 3.5-5.0 [facility] Comment on above: Performed By: #### C HM7, MGO ####[facility] (DEFAULT)[address] [place] [address] Sodium [Moles/Vol] 142 mmol/L Normal 133-143 [facility] Comment on above: Performed By: #### C HM7, MGO ####[facility] (DEFAULT)[address] [facility] [place] [address] Urea nitrogen [Mass/Vol] 31 mg/dL High 7-22 [facility] Comment on above: Performed By: #### C HM7, MGO ####[facility] (DEFAULT)[address] [place] [address] Urea nitrogen/Creatinine [Mass ratio] 76 mg/mg Normal [facility] Comment on above: Performed By: #### C HM7, MGO ####[facility] (DEFAULT)[address] [place] [address], [place] [address] MAGNESIUMon 09-25-2021 Magnesium [Mass/Vol] 2.1 mg/dL Normal 1.6-2.6 [facility] Comment on above: Performed By: #### C HM7, MGO ####[facility] (DEFAULT)[address] [place] [address], [place] [address] XR CHEST PORTABLEon 09-25-20 XR CHEST PORTABLE Normal [facility] XR CHEST PORTABLE Normal [facility] CBC,PLATELETSon 09-24-2021 Hematocrit (Bld) [Volume fraction] 30.1 % Low 34.9-44.3 [facility] Comment on above: Performed By: #### H [facility] ####[facility] (DEFAULT)[address] [place] [address], [place] [address] Hemoglobin (Bld) [Mass/Vol] 9.1 g/dL Low 11.4-15.2 [facility] Comment on above: Performed By: #### H EMOGC ####[facility] (DEFAULT)[address] [place] [address], [place] [address] MCV (RBC) [Entitic vol] 85.3 fL Normal 79.6-97.7 [facility] Comment on above: Performed By: #### H EMOGC ####[facility] (DEFAULT)[address] [place] [address], [place] [address] Mean Cell Hgb 25.8 pg Low 25.9-33.9 [facility] Comment on above: Performed By: #### H EMOGC ####[facility] (DEFAULT)[address] [place] [address] Mean Cell Hgb Conc 30.2 g/dL Low 31.4-35.9 [facility] Comment on above: Performed By: #### H EMOGC ####[facility] (DEFAULT)[address] [facility] [place] [place] [address] Platelet mean volume (Bld) [Entitic vol] 10.8 fL Normal 8.5-12.2 [facility] Comment on above: Performed By: #### H EMOGC ####[facility] (DEFAULT)[address] [facility] [place] [place] [address] Platelets (Bld) [#/Vol] 239 10*3/uL Normal 150-393 [facility] Comment on above: Performed By: #### H EMOGC ####[facility] (DEFAULT)[address] [place] [address] RBC (Bld) [#/Vol] 3.53 10*6/uL Low 3.91-5.04 [facility] Comment on above: Performed By: #### H EMOGC ####[facility] (DEFAULT)[address] [place] [address] RBC Distribution 16.3 % High 10.8-14.9 [facility] Comment on above: Performed By: #### H EMOGC ####[facility] (DEFAULT)[address] [facility] [place] [place] [address] WBC (Bld) [#/Vol] 10.17 10*3/uL Normal 3.99-11.19 [facility] Comment on above: Performed By: #### H EMOGC ####[facility] (DEFAULT)[address] [facility] [place] [place] [address] CHEM 7 (LYTES,BUN,CREA,GLUC) on 09-24-2021 Anion gap [Moles/Vol] 13 mmol/L Normal 7-17 [facility] Comment on above: Performed By: #### C HM7, CKB, MGO, TRIG ####[facility] (DEFAULT)[address] [place] [address] Chloride [Moles/Vol] 90 mmol/L Low 98-108 [facility] Comment on above: Performed By: #### C HM7, CKB, MGO, TRIG ####[facility] (DEFAULT)[address] [place] [address] CO2 [Moles/Vol] 41 mmol/L Critically high 22-30 [facility] Comment on above: Performed By: #### C HM7, CKB, MGO, TRIG ####[facility] (DEFAULT)[address] [place] [address] Creatinine [Mass/Vol] 0.46 mg/dL Low 0.50-1.20 [facility] Comment on above: Performed By: #### C HM7, CKB, MGO, TRIG ####[facility] (DEFAULT)[address] [place] [address] EST GFR, >=60 Normal >=60 [facility] Comment on above: Performed By: #### C HM7, CKB, MGO, TRIG ####[facility] (DEFAULT)[address] [place] [address] EST GFR,Non >=60 Normal >=60 [facility] Comment on above: Performed By: #### C HM7, CKB, MGO, TRIG ####[facility] (DEFAULT)[address] [place] [address] Glucose [Mass/Vol] 107 mg/dL High 70-99 [facility] Comment on above: Performed By: #### C HM7, CKB, MGO, TRIG ####[facility] (DEFAULT)[address] [id number] Osmolality [Osmolality] 300 mosm/kg Normal 278-305 [facility] Comment on above: Performed By: #### C HM7, CKB, MGO, TRIG ####[facility] (DEFAULT)[address] [place] [address] Potassium [Moles/Vol] 3.3 mmol/L Low 3.5-5.0 [facility] Comment on above: Performed By: #### C HM7, CKB, MGO, TRIG ####[facility] (DEFAULT)[address] [facility] [place] [place] [address] Sodium [Moles/Vol] 141 mmol/L Normal 133-143 [facility] Comment on above: Performed By: #### C HM7, CKB, MGO, TRIG ####[facility] (DEFAULT)[address] [facility] [place] [place] [address] Urea nitrogen [Mass/Vol] 29 mg/dL High 7-22 [facility] Comment on above: Performed By: #### C HM7, CKB, MGO, TRIG ####[facility] (DEFAULT)[address] [facility] [place] [place] [address] Urea nitrogen/Creatinine [Mass ratio] 63 mg/mg Normal [facility] Comment on above: Performed By: #### C HM7, CKB, MGO, TRIG ####[facility] (DEFAULT)[address] [facility] [place] [place] [address] CKon 09-24-2021 CK [Catalytic activity/Vol] U/L Low 30-184 [facility] Comment on above: Order Comment: While on Propofol. Performed By: #### C HM7, CKB, MGO, TRIG ####[facility] (DEFAULT)[address] [place] [address] MAGNESIUMon 09-24-2021 Magnesium [Mass/Vol] 1.8 mg/dL Normal 1.6-2.6 [facility] Comment on above: Performed By: #### C HM7, CKB, MGO, TRIG ####[facility] (DEFAULT)[address] [place] [address] POTASSIUMon 09-24-2021 Potassium [Moles/Vol] 4.5 mmol/L Normal 3.5-5.0 [facility] Comment on above: Order Comment: If po tassium level is less than or equal to 3.0 mmol/L, recheck potassium 4 hours after replacement.Results inconsistent with previous results Performed By: #### K KO ####[facility] (DEFAULT)[address] [place] [address] TRIGLYCERIDEon 09-24-2021 Triglyceride [Mass/Vol] 205 mg/dL High <150 [facility] Comment on above: Order Comment: While on Propofol. Result Comment: [<15 0 mg/dL: Desirable][150-199 mg/dL: Borderline][200-499 mg/dL: High][>500 mg/dL: Very High] Performed By: #### C HM7, CKB, MGO, TRIG ####[facility] (DEFAULT)[address] [place] [address] XR ABDOMEN 1 VIEW PORTABLEon 09-24-2021 XR ABDOMEN 1 VIEW PORTABLE Normal [facility] XR CHEST PORTABLEon 09-24-20 XR CHEST PORTABLE Normal [facility] XR CHEST PORTABLE Normal [facility] CBC,PLATELETSon 09-23-2021 Hematocrit (Bld) [Volume fraction] 30.4 % Low 34.9-44.3 [facility] Comment on above: Performed By: #### H EMO ####[facility] (DEFAULT)[address] [place] [address] Hemoglobin (Bld) [Mass/Vol] 9.1 g/dL Low 11.4-15.2 [facility] Comment on above: Performed By: #### H EMO ####[facility] (DEFAULT)[address] [place] [address] MCV (RBC) [Entitic vol] 87.1 fL Normal 79.6-97.7 [facility] Comment on above: Performed By: #### H EMOGC ####[facility] (DEFAULT)[address] [place] [address] Mean Cell Hgb 26.1 pg Normal 25.9-33.9 [facility] Comment on above: Performed By: #### H EMOGC ####[facility] (DEFAULT)[address] [place] [address] Mean Cell Hgb Conc 29.9 g/dL Low 31.4-35.9 [facility] Comment on above: Performed By: #### H EMOGC ####[facility] (DEFAULT)[address] [place] [address] Platelet mean volume (Bld) [Entitic vol] 10.8 fL Normal 8.5-12.2 [facility] Comment on above: Performed By: #### H EMOGC ####[facility] (DEFAULT)[address] [facility] [place] [address] Platelets (Bld) [#/Vol] 238 10*3/uL Normal 150-393 [facility] Comment on above: Performed By: #### H EMOGC ####[facility] (DEFAULT)[address] [place] [address] RBC (Bld) [#/Vol] 3.49 10*6/uL Low 3.91-5.04 [facility] Comment on above: Performed By: #### H EMOGC ####[facility] (DEFAULT)[address] [facility] [place] [place] [address] RBC Distribution 16.2 % High 10.8-14.9 [facility] Comment on above: Performed By: #### H EMOGC ####[facility] (DEFAULT)[address] [place] [address] WBC (Bld) [#/Vol] 9.92 10*3/uL Normal 3.99-11.19 [facility] Comment on above: Performed By: #### H [facility] ####[facility] (DEFAULT)[address] [facility] [place] [place] [address] CHEM 7 (LYTES,BUN,CREA,GLUC) on 09-23-2021 Anion gap [Moles/Vol] 13 mmol/L Normal 7-17 [facility] Comment on above: Performed By: #### I PB, CHM7, TRIG, MGO, CKB ####[facility] (DEFAULT)[address] [facility] [place] [place] [address] Chloride [Moles/Vol] 91 mmol/L Low 98-108 [facility] Comment on above: Performed By: #### I PB, CHM7, TRIG, MGO, CKB ####[facility] (DEFAULT)[address] [place] [address] CO2 [Moles/Vol] 42 mmol/L Critically high 22-30 [facility] Comment on above: Performed By: #### I PB, CHM7, TRIG, MGO, CKB ####[facility] (DEFAULT)[address] [place] [address] Creatinine [Mass/Vol] 0.40 mg/dL Low 0.50-1.20 [facility] Comment on above: Performed By: #### I PB, CHM7, TRIG, MGO, CKB ####[facility] (DEFAULT)[address] [place] [address] EST GFR, >=60 Normal >=60 [facility] Comment on above: Performed By: #### I PB, CHM7, TRIG, MGO, CKB ####[facility] (DEFAULT)[address] [facility] [place] [address] EST GFR,Non >=60 Normal >=60 [facility] Comment on above: Performed By: #### I PB, CHM7, TRIG, MGO, CKB ####[facility] (DEFAULT)[address] [place] [address] Glucose [Mass/Vol] 128 mg/dL High 70-99 [facility] Comment on above: Performed By: #### I PB, CHM7, TRIG, MGO, CKB ####[facility] (DEFAULT)[address] [place] [address] Osmolality [Osmolality] 304 mosm/kg Normal 278-305 [facility] Comment on above: Performed By: #### I PB, CHM7, TRIG, MGO, CKB ####[facility] (DEFAULT)[address] [facility] [place] [address] Potassium [Moles/Vol] 4.2 mmol/L Normal 3.5-5.0 [facility] Comment on above: Performed By: #### I PB, CHM7, TRIG, MGO, CKB ####[facility] (DEFAULT)[address] [place] [address] Sodium [Moles/Vol] 142 mmol/L Normal 133-143 [facility] Comment on above: Performed By: #### I PB, CHM7, TRIG, MGO, CKB ####[facility] (DEFAULT)[address] [place] [address] Urea nitrogen [Mass/Vol] 28 mg/dL High 7-22 [facility] Comment on above: Performed By: #### I PB, CHM7, TRIG, MGO, CKB ####[facility] (DEFAULT)[address] [facility] [place] [address] Urea nitrogen/Creatinine [Mass ratio] 70 mg/mg Normal [facility] Comment on above: Performed By: #### I PB, CHM7, TRIG, MGO, CKB ####[facility] (DEFAULT)[address] [place] [address] CKon 09-23-2021 CK [Catalytic activity/Vol] 13 U/L Low 30-184 [facility] Comment on above: Order Comment: While on Propofol. Performed By: #### I PB, CHM7, TRIG, MGO, CKB ####[facility] (DEFAULT)[address] [place] [address] MAGNESIUMon 09-23-2021 Magnesium [Mass/Vol] 2.0 mg/dL Normal 1.6-2.6 [facility] Comment on above: Performed By: #### I PB, CHM7, TRIG, MGO, CKB ####[facility] (DEFAULT)[address] [place] [address] PHOSPHATE, INORGANICon 09-23 Phosphorous 6.7 mg/dL High 2.2-4.6 [facility] Comment on above: Performed By: #### I PB, CHM7, TRIG, MGO, CKB ####[facility] (DEFAULT)[address] [place] [address] PT,INR,PTTon 09-23-2021 aPTT Coag (Bld) [Time] 28.5 s Normal 24.0-34.3 [facility] Comment on above: Performed By: #### P TPTT ####[facility] (DEFAULT)[address] [place] [address] INR Coag (PPP) [Relative time] 1.0 {INR} Normal 0.9-1.1 [facility] Comment on above: Performed By: #### P TPTT ####[facility] (DEFAULT)[address] [place] [address] PT Coag (PPP) [Time] 13.4 s Normal 11.9-14.2 [facility] Comment on above: Performed By: #### P TPTT ####[facility] (DEFAULT)[address] [place] [address] TRIGLYCERIDEon 09-23-2021 Triglyceride [Mass/Vol] 246 mg/dL High <150 [facility] Comment on above: Order Comment: While on Propofol. Result Comment: [<15 0 mg/dL: Desirable][150-199 mg/dL: Borderline][200-499 mg/dL: High][>500 mg/dL: Very High] Performed By: #### I PB, CHM7, TRIG, MGO, CKB ####[facility] (DEFAULT)[address] [facility] [place] [address] XR CHEST PORTABLEon 09-23-20 XR CHEST PORTABLE Normal [facility] XR CHEST PORTABLE Normal [facility] CBC,PLATELETSon 09-22-2021 Hematocrit (Bld) [Volume fraction] 28.3 % Low 34.9-44.3 [facility] Comment on above: Performed By: #### H EMO ####[facility] (DEFAULT)[address] [place] [address] Hemoglobin (Bld) [Mass/Vol] 8.4 g/dL Low 11.4-15.2 [facility] Comment on above: Performed By: #### H EMO ####[facility] (DEFAULT)[address] [place] [address], [place] [address] MCV (RBC) [Entitic vol] 86.8 fL Normal 79.6-97.7 [facility] Comment on above: Performed By: #### H EMOGC ####[facility] (DEFAULT)[address] [place] [address] Mean Cell Hgb 25.8 pg Low 25.9-33.9 [facility] Comment on above: Performed By: #### H EMOGC ####[facility] (DEFAULT)[address] [place] [address] Mean Cell Hgb Conc 29.7 g/dL Low 31.4-35.9 [facility] Comment on above: Performed By: #### H EMOGC ####[facility] (DEFAULT)[address] [place] [address] Platelet mean volume (Bld) [Entitic vol] 10.9 fL Normal 8.5-12.2 [facility] Comment on above: Performed By: #### H EMO ####[facility] (DEFAULT)[address] [place] [address] Platelets (Bld) [#/Vol] 212 10*3/uL Normal 150-393 [facility] Comment on above: Performed By: #### H EMO ####[facility] (DEFAULT)[address] [place] [address] RBC (Bld) [#/Vol] 3.26 10*6/uL Low 3.91-5.04 [facility] Comment on above: Performed By: #### H EMO ####[facility] (DEFAULT)[address] [facility] [place] [place] [address] RBC Distribution 16.1 % High 10.8-14.9 [facility] Comment on above: Performed By: #### H [facility] ####[facility] (DEFAULT)[address] [place] [address] WBC (Bld) [#/Vol] 9.86 10*3/uL Normal 3.99-11.19 [facility] Comment on above: Performed By: #### H [facility] ####[facility] (DEFAULT)[address] [place] [address] CHEM 7 (LYTES,BUN,CREA,GLUC) on 09-22-2021 Anion gap [Moles/Vol] 13 mmol/L Normal 7-17 [facility] Comment on above: Performed By: #### SCOTT YAO ####[facility] (DEFAULT)[address] [place] [address] Chloride [Moles/Vol] 91 mmol/L Low 98-108 [facility] Comment on above: Performed By: #### SCOTT YAO ####[facility] (DEFAULT)[address] [place] [address] CO2 [Moles/Vol] 40 mmol/L High 22-30 [facility] Comment on above: Performed By: #### Sukhjinder ZHU CHSukhjinder7 ####[facility] (DEFAULT)[address] [place] [address] Creatinine [Mass/Vol] 0.37 mg/dL Low 0.50-1.20 [facility] Comment on above: Performed By: #### Sukhjinder ZHU CHM7 ####[facility] (DEFAULT)[address] [place] [address] EST GFR, >=60 Normal >=60 [facility] Comment on above: Performed By: #### Sukhjinder ZHU CHM7 ####[facility] (DEFAULT)[address] [place] [address] EST GFR,Non >=60 Normal >=60 [facility] Comment on above: Performed By: #### Sukhjinder ZHU CHM7 ####[facility] (DEFAULT)[address] [place] [address] Glucose [Mass/Vol] 117 mg/dL High 70-99 [facility] Comment on above: Performed By: #### Sukhjinder ZHU CHM7 ####[facility] (DEFAULT)[address] [place] [address] Osmolality [Osmolality] 302 mosm/kg Normal 278-305 [facility] Comment on above: Performed By: #### Sukhjinder ZHU CHM7 ####[facility] (DEFAULT)[address] [place] [address] Potassium [Moles/Vol] 3.4 mmol/L Low 3.5-5.0 [facility] Comment on above: Performed By: #### Sukhjinder ZHU CHM7 ####[facility] (DEFAULT)[address] [place] [address] Sodium [Moles/Vol] 141 mmol/L Normal 133-143 [facility] Comment on above: Performed By: #### GAURAV YAO7 ####[facility] (DEFAULT)[address] [place] [address] Urea nitrogen [Mass/Vol] 34 mg/dL High - [facility] Comment on above: Performed By: #### Sukhjinder ZHU CHM7 ####[facility] (DEFAULT)[address] [place] [address] Urea nitrogen/Creatinine [Mass ratio] 92 mg/mg Normal [facility] Comment on above: Performed By: #### GAURAV YAO7 ####[facility] (DEFAULT)[address] [place] [address] CHEST WITHOUT CONTRASTon 09-22-2021 CT CHEST WITHOUT CONTRAST Normal [facility] MAGNESIUMon 09-22-2021 Magnesium [Mass/Vol] 1.9 mg/dL Normal 1.6-2.6 [facility] Comment on above: Performed By: #### GAURAV YAO7 ####[facility] (DEFAULT)[address] [place] [address] XR ABDOMEN 1 VIEW PORTABLEon 09-22-2021 XR ABDOMEN 1 VIEW PORTABLE Normal [facility] XR CHEST PORTABLEon 09-22-20 XR CHEST PORTABLE Normal [facility] CHEM 7 (LYTES,BUN,CREA,GLUC) on 09-21-2021 Anion gap [Moles/Vol] 12 mmol/L Normal 7-17 [facility] Comment on above: Performed By: #### T RIG MGO, CHM7, CKB ####[facility] (DEFAULT)[address] [place] [address] Chloride [Moles/Vol] 89 mmol/L Low 98-108 [facility] Comment on above: Performed By: #### T RIG MGO, CHM7, CKB ####[facility] (DEFAULT)[address] [place] [address] CO2 [Moles/Vol] 42 mmol/L Critically high 22-30 [facility] Comment on above: Performed By: #### T RIG, MGO, CHM7, CKB ####[facility] (DEFAULT)[address] [place] [address] Creatinine [Mass/Vol] 0.42 mg/dL Low 0.50-1.20 [facility] Comment on above: Performed By: #### T RIG, MGO, CHM7, CKB ####[facility] (DEFAULT)[address] [place] [address] EST GFR, >=60 Normal >=60 [facility] Comment on above: Performed By: #### T RIG, MGO, CHM7, CKB ####[facility] (DEFAULT)[address] [place] [address] EST GFR,Non >=60 Normal >=60 [facility] Comment on above: Performed By: #### T RIG, MGO, CHM7, CKB ####[facility] (DEFAULT)[address] [place] [address] Glucose [Mass/Vol] 100 mg/dL High 70-99 [facility] Comment on above: Performed By: #### T RIG, MGO, CHM7, CKB ####[facility] (DEFAULT)[address] [place] [address] Osmolality [Osmolality] 298 mosm/kg Normal 278-305 [facility] Comment on above: Performed By: #### T RIG, MGO, CHM7, CKB ####[facility] (DEFAULT)[address] [place] [address] Potassium [Moles/Vol] 3.4 mmol/L Low 3.5-5.0 [facility] Comment on above: Performed By: #### T RIG, MGO, CHM7, CKB ####[facility] (DEFAULT)[address] [place] [address] Sodium [Moles/Vol] 140 mmol/L Normal 133-143 [facility] Comment on above: Performed By: #### T RIG, MGO, CHM7, CKB ####[facility] (DEFAULT)[address] [place] [address] Urea nitrogen [Mass/Vol] 30 mg/dL High 7-22 [facility] Comment on above: Performed By: #### T RIG, MGO, CHM7, CKB ####[facility] (DEFAULT)[address] [place] [address] Urea nitrogen/Creatinine [Mass ratio] 71 mg/mg Normal [facility] Comment on above: Performed By: #### T RIG, MGO, CHM7, CKB ####[facility] (DEFAULT)[address] [place] [address], [place] [address] CKon 09-21-2021 CK [Catalytic activity/Vol] U/L Low 30-184 [facility] Comment on above: Order Comment: While on Propofol. Performed By: #### T RIG, MGO, CHM7, CKB ####[facility] (DEFAULT)[address] [place] [address] MAGNESIUMon 09-21-2021 Magnesium [Mass/Vol] 2.1 mg/dL Normal 1.6-2.6 [facility] Comment on above: Performed By: #### T RIG, MGO, CHM7, CKB ####[facility] (DEFAULT)[address] [place] [address] TRIGLYCERIDEon 09-21-2021 Triglyceride [Mass/Vol] 240 mg/dL High <150 [facility] Comment on above: Order Comment: While on Propofol. Result Comment: [<15 0 mg/dL: Desirable][150-199 mg/dL: Borderline][200-499 mg/dL: High][>500 mg/dL: Very High] Performed By: #### T RIG, MGO, CHM7, CKB ####[facility] (DEFAULT)[address] [place] [address] [place] [address] XR CHEST PORTABLEon 09-21-20 XR CHEST PORTABLE Normal [facility] XR CHEST PORTABLE Normal [facility] XR CHEST PORTABLE Normal [facility] XR CHEST PORTABLE Normal [facility] CBC,PLATELETSon 09-20-2021 Hematocrit (Bld) [Volume fraction] 28.4 % Low 34.9-44.3 [facility] Comment on above: Performed By: #### H EMO ####[facility] (DEFAULT)[address] [place] [address] Hemoglobin (Bld) [Mass/Vol] 8.8 g/dL Low 11.4-15.2 [facility] Comment on above: Performed By: #### H EMO ####[facility] (DEFAULT)[address] [place] [address], [place] [address] MCV (RBC) [Entitic vol] 85.0 fL Normal 79.6-97.7 [facility] Comment on above: Performed By: #### H EMOGC ####[facility] (DEFAULT)[address] [place] [address] Mean Cell Hgb 26.3 pg Normal 25.9-33.9 [facility] Comment on above: Performed By: #### H EMOGC ####[facility] (DEFAULT)[address] [place] [address] Mean Cell Hgb Conc 31.0 g/dL Low 31.4-35.9 [facility] Comment on above: Performed By: #### H EMOGC ####[facility] (DEFAULT)[address] [place] [address], [place] [address] Platelet mean volume (Bld) [Entitic vol] 11.2 fL Normal 8.5-12.2 [facility] Comment on above: Performed By: #### H EMO ####[facility] (DEFAULT)[address] [facility] [place] [address] Platelets (Bld) [#/Vol] 224 10*3/uL Normal 150-393 [facility] Comment on above: Performed By: #### H EMO ####[facility] (DEFAULT)[address] [facility] [place] [place] [address] RBC (Bld) [#/Vol] 3.34 10*6/uL Low 3.91-5.04 [facility] Comment on above: Performed By: #### H EMO ####[facility] (DEFAULT)[address] [facility] [place] [place] [address] RBC Distribution 16.2 % High 10.8-14.9 [facility] Comment on above: Performed By: #### H EMO ####[facility] (DEFAULT)[address] [place] [address] WBC (Bld) [#/Vol] 11.91 10*3/uL High 3.99-11.19 [facility] Comment on above: Performed By: #### H EMO ####[facility] (DEFAULT)[address] [place] [address] CHEM 7 (LYTES,BUN,CREA,GLUC) on 09-20-2021 Anion gap [Moles/Vol] 14 mmol/L Normal 7-17 [facility] Comment on above: Performed By: #### M MARKO CHM7 ####[facility] (DEFAULT)[address] [facility] [place] [address] Chloride [Moles/Vol] 89 mmol/L Low 98-108 [facility] Comment on above: Performed By: #### M MARKO CHM7 ####[facility] (DEFAULT)[address] [facility] [place] [place] [address] CO2 [Moles/Vol] 39 mmol/L High 22-30 [facility] Comment on above: Performed By: #### SCOTT YAO ####[facility] (DEFAULT)[address] [place] [address] Creatinine [Mass/Vol] 0.41 mg/dL Low 0.50-1.20 [facility] Comment on above: Performed By: #### SCOTT YAO ####[facility] (DEFAULT)[address] [place] [address] EST GFR, >=60 Normal >=60 [facility] Comment on above: Performed By: #### SCOTT YAO ####[facility] (DEFAULT)[address] [place] [address] EST GFR,Non >=60 Normal >=60 [facility] Comment on above: Performed By: #### SCOTT YAO ####[facility] (DEFAULT)[address] [facility] [place] [place] [address] Glucose [Mass/Vol] 155 mg/dL High 70-99 [facility] Comment on above: Performed By: #### SCOTT YAO ####[facility] (DEFAULT)[address] [place] [address] Osmolality [Osmolality] 298 mosm/kg Normal 278-305 [facility] Comment on above: Performed By: #### SCOTT YAO ####[facility] (DEFAULT)[address] [place] [address] Potassium [Moles/Vol] 3.9 mmol/L Normal 3.5-5.0 [facility] Comment on above: Performed By: #### SCOTT YAO ####[facility] (DEFAULT)[address] [place] [address] Sodium [Moles/Vol] 138 mmol/L Normal 133-143 [facility] Comment on above: Performed By: #### GAURAV YAO7 ####[facility] (DEFAULT)[address] [place] [address] Urea nitrogen [Mass/Vol] 28 mg/dL High 7-22 [facility] Comment on above: Performed By: #### M GO, CHM7 ####[facility] (DEFAULT)[address] [place] [address] Urea nitrogen/Creatinine [Mass ratio] 68 mg/mg Normal [facility] Comment on above: Performed By: #### M GO, CHM7 ####[facility] (DEFAULT)[address] [place] [address] Anion gap [Moles/Vol] 13 mmol/L Normal 7-17 [facility] Comment on above: Performed By: #### I PB, CHM7, MGO ####[facility] (DEFAULT)[address] [place] [address] Chloride [Moles/Vol] 89 mmol/L Low 98-108 [facility] Comment on above: Performed By: #### I PB, CHM7, MGO ####[facility] [facility] (DEFAULT)[address] [place] [address] CO2 [Moles/Vol] 41 mmol/L Critically high 22-30 [facility] Comment on above: Performed By: #### I PB, CHM7, MGO ####[facility] (DEFAULT)[address] [place] [address] Creatinine [Mass/Vol] 0.45 mg/dL Low 0.50-1.20 [facility] Comment on above: Performed By: #### I PB, CHM7, MGO ####[facility] (DEFAULT)[address] [place] [address] EST GFR, >=60 Normal >=60 [facility] Comment on above: Performed By: #### I PB, CHM7, MGO ####[facility] (DEFAULT)[address] [place] [address] EST GFR,Non >=60 Normal >=60 [facility] Comment on above: Performed By: #### I PB, CHM7, MGO ####[facility] (DEFAULT)[address] [place] [address] Glucose [Mass/Vol] 121 mg/dL High 70-99 [facility] Comment on above: Performed By: #### I PB, CHM7, MGO ####[facility] (DEFAULT)[address] [place] [address] Osmolality [Osmolality] 295 mosm/kg Normal 278-305 [facility] Comment on above: Performed By: #### I PB, CHM7, MGO ####[facility] (DEFAULT)[address] [place] [address] Potassium [Moles/Vol] 3.5 mmol/L Normal 3.5-5.0 [facility] Comment on above: Performed By: #### I PB, CHM7, MGO ####[facility] (DEFAULT)[address] [place] [address] Sodium [Moles/Vol] 139 mmol/L Normal 133-143 [facility] Comment on above: Performed By: #### I PB, CHM7, MGO ####[facility] (DEFAULT)[address] [place] [address] Urea nitrogen [Mass/Vol] 23 mg/dL High 7-22 [facility] Comment on above: Performed By: #### I PB, CHM7, MGO ####[facility] (DEFAULT)[address] [place] [address] Urea nitrogen/Creatinine [Mass ratio] 51 mg/mg Normal [facility] Comment on above: Performed By: #### I PB, CHM7, MGO ####[facility] (DEFAULT)[address] [place] [address] MAGNESIUMon 09-20-2021 Magnesium [Mass/Vol] 2.0 mg/dL Normal 1.6-2.6 [facility] Comment on above: Performed By: #### M GO, CHM7 ####[facility] (DEFAULT)[address] [place] [address] Magnesium [Mass/Vol] 2.2 mg/dL Normal 1.6-2.6 [facility] Comment on above: Performed By: #### I PB, CHM7, MGO ####[facility] (DEFAULT)[address] [place] [address] PHOSPHATE, INORGANICon 09-20 Phosphorous 4.5 mg/dL Normal 2.2-4.6 [facility] Comment on above: Performed By: #### I PB, CHM7, MGO ####[facility] (DEFAULT)[address] [place] [address] CHEM 7 (LYTES,BUN,CREA,GLUC) on 09-19-2021 Anion gap [Moles/Vol] 13 mmol/L Normal 7-17 [facility] Comment on above: Performed By: #### C HM7, MGO ####[facility] (DEFAULT)[address] [place] [address] Chloride [Moles/Vol] 86 mmol/L Low 98-108 [facility] Comment on above: Performed By: #### C HM7, MGO ####[facility] (DEFAULT)[address] [place] [address] CO2 [Moles/Vol] 42 mmol/L Critically high 22-30 [facility] Comment on above: Performed By: #### C HM7, MGO ####[facility] (DEFAULT)[address] [place] [address] Creatinine [Mass/Vol] 0.37 mg/dL Low 0.50-1.20 [facility] Comment on above: Performed By: #### C HM7, MGO ####[facility] (DEFAULT)[address] [place] [address] EST GFR, >=60 Normal >=60 [facility] Comment on above: Performed By: #### C HM7, MGO ####[facility] (DEFAULT)[address] [place] [address] EST GFR,Non >=60 Normal >=60 [facility] Comment on above: Performed By: #### C HM7, MGO ####[facility] (DEFAULT)[address] [place] [address] Glucose [Mass/Vol] 131 mg/dL High 70-99 [facility] Comment on above: Performed By: #### C HM7, MGO ####[facility] (DEFAULT)[address] [place] [address] Osmolality [Osmolality] 291 mosm/kg Normal 278-305 [facility] Comment on above: Performed By: #### C HM7, MGO ####[facility] (DEFAULT)[address] [place] [address] Potassium [Moles/Vol] 3.6 mmol/L Normal 3.5-5.0 [facility] Comment on above: Performed By: #### C HM7, MGO ####[facility] (DEFAULT)[address] [place] [address] Sodium [Moles/Vol] 137 mmol/L Normal 133-143 [facility] Comment on above: Performed By: #### C HM7, MGO ####[facility] (DEFAULT)[address] [place] [address] Urea nitrogen [Mass/Vol] 19 mg/dL Normal 7-22 [facility] Comment on above: Performed By: #### C HM7, MGO ####[facility] (DEFAULT)[address] [place] [address] Urea nitrogen/Creatinine [Mass ratio] 51 mg/mg Normal [facility] Comment on above: Performed By: #### C HM7, MGO ####[facility] (DEFAULT)[address] [place] [address] Anion gap [Moles/Vol] 10 mmol/L Normal 7-17 [facility] Comment on above: Performed By: #### C HM7, TRIG, CKB, MGO ####[facility] (DEFAULT)[address] [place] [address] Chloride [Moles/Vol] 85 mmol/L Low 98-108 [facility] Comment on above: Performed By: #### C HM7, TRIG, CKB, MGO ####[facility] (DEFAULT)[address] [place] [address] CO2 [Moles/Vol] 45 mmol/L Critically high 22-30 [facility] Comment on above: Performed By: #### C HM7, TRIG, CKB, MGO ####[facility] (DEFAULT)[address] [place] [address] Creatinine [Mass/Vol] 0.33 mg/dL Low 0.50-1.20 [facility] Comment on above: Performed By: #### C HM7, TRIG, CKB, MGO ####[facility] (DEFAULT)[address] [place] [address] EST GFR, >=60 Normal >=60 [facility] Comment on above: Performed By: #### C HM7, TRIG, CKB, MGO ####[facility] (DEFAULT)[address] [place] [address] EST GFR,Non >=60 Normal >=60 [facility] Comment on above: Performed By: #### C HM7, TRIG, CKB, MGO ####[facility] (DEFAULT)[address] [place] [address] Glucose [Mass/Vol] 125 mg/dL High 70-99 [facility] Comment on above: Performed By: #### C HM7, TRIG, CKB, MGO ####[facility] (DEFAULT)[address] [place] [address] Osmolality [Osmolality] 290 mosm/kg Normal 278-305 [facility] Comment on above: Performed By: #### C HM7, TRIG, CKB, MGO ####[facility] (DEFAULT)[address] [place] [address] Potassium [Moles/Vol] 3.3 mmol/L Low 3.5-5.0 [facility] Comment on above: Performed By: #### C HM7, TRIG, CKB, MGO ####[facility] (DEFAULT)[address] [place] [address] Sodium [Moles/Vol] 137 mmol/L Normal 133-143 [facility] Comment on above: Performed By: #### C HM7, TRIG, CKB, MGO ####[facility] (DEFAULT)[address] [place] [address] Urea nitrogen [Mass/Vol] 19 mg/dL Normal 7-22 [facility] Comment on above: Performed By: #### C HM7, TRIG, CKB, MGO ####[facility] (DEFAULT)[address] [place] [address] Urea nitrogen/Creatinine [Mass ratio] 58 mg/mg Normal [facility] Comment on above: Performed By: #### C HM7, TRIG, CKB, MGO ####[facility] (DEFAULT)[address] [place] [address] CKon 09-19-2021 CK [Catalytic activity/Vol] 17 U/L Low 30-184 [facility] Comment on above: Order Comment: While on Propofol. Performed By: #### C HM7, TRIG, CKB, MGO ####[facility] (DEFAULT)[address] [place] [address] CT CHEST WITHOUT CONTRASTon 09-19-2021 CT CHEST WITHOUT CONTRAST Normal [facility] MAGNESIUMon 09-19-2021 Magnesium [Mass/Vol] 2.2 mg/dL Normal 1.6-2.6 [facility] Comment on above: Performed By: #### C HM7, MGO ####[facility] (DEFAULT)[address] [place] [address] Magnesium [Mass/Vol] 1.8 mg/dL Normal 1.6-2.6 [facility] Comment on above: Performed By: #### C HM7, TRIG, CKB, MGO ####[facility] (DEFAULT)[address] [place] [address] TRIGLYCERIDEon 09-19-2021 Triglyceride [Mass/Vol] 203 mg/dL High <150 [facility] Comment on above: Order Comment: While on Propofol. Result Comment: [<15 0 mg/dL: Desirable][150-199 mg/dL: Borderline][200-499 mg/dL: High][>500 mg/dL: Very High] Performed By: #### C HM7, TRIG, CKB, MGO ####[facility] (DEFAULT)[address] [place] [address] CBC,PLATELETSon 09-18-2021 Hematocrit (Bld) [Volume fraction] 26.5 % Low 34.9-44.3 [facility] Comment on above: Performed By: #### H [facility] ####[facility] (DEFAULT)[address] [place] [address] Hemoglobin (Bld) [Mass/Vol] 8.1 g/dL Low 11.4-15.2 [facility] Comment on above: Performed By: #### H [facility] ####[facility] (DEFAULT)[address] [facility] [place] [address] MCV (RBC) [Entitic vol] 86.3 fL Normal 79.6-97.7 [facility] Comment on above: Performed By: #### H EMOGC ####[facility] (DEFAULT)[address] [place] [address] Mean Cell Hgb 26.4 pg Normal 25.9-33.9 [facility] Comment on above: Performed By: #### H EMOGC ####[facility] (DEFAULT)[address] [facility] [place] [address] Mean Cell Hgb Conc 30.6 g/dL Low 31.4-35.9 [facility] Comment on above: Performed By: #### H EMOGC ####[facility] (DEFAULT)[address] [facility] [place] [address] Platelet mean volume (Bld) [Entitic vol] 11.0 fL Normal 8.5-12.2 [facility] Comment on above: Performed By: #### H EMOGC ####[facility] (DEFAULT)[address] [facility] [place] [address] Platelets (Bld) [#/Vol] 203 10*3/uL Normal 150-393 [facility] Comment on above: Performed By: #### H EMOGC ####[facility] (DEFAULT)[address] [place] [address] RBC (Bld) [#/Vol] 3.07 10*6/uL Low 3.91-5.04 [facility] Comment on above: Performed By: #### H EMOGC ####[facility] (DEFAULT)[address] [facility] [place] [address] RBC Distribution 15.8 % High 10.8-14.9 [facility] Comment on above: Performed By: #### H EMOGC ####[facility] (DEFAULT)[address] [facility] [place] [address] WBC (Bld) [#/Vol] 8.25 10*3/uL Normal 3.99-11.19 [facility] Comment on above: Performed By: #### H [facility] ####[facility] (DEFAULT)[address] [place] [address] CHEM 7 (LYTES,BUN,CREA,GLUC) on 09-18-2021 Anion Gap Normal [facility] Comment on above: Result Comment: Not Calculated Performed By: #### C HM7, MGO ####[facility] (DEFAULT)[address] [facility] [place] [address] Chloride [Moles/Vol] 83 mmol/L Low 98-108 [facility] Comment on above: Performed By: #### C HM7, MGO ####[facility] (DEFAULT)[address] [facility] [place] [address] CO2 [Moles/Vol] mmol/L Critically high 22-30 [facility] Comment on above: Performed By: #### C HM7, MGO ####[facility] (DEFAULT)[address] [facility] [place] [address] Creatinine [Mass/Vol] 0.37 mg/dL Low 0.50-1.20 [facility] Comment on above: Performed By: #### C HM7, MGO ####[facility] (DEFAULT)[address] [facility] [place] [address] EST GFR, >=60 Normal >=60 [facility] Comment on above: Performed By: #### C HM7, MGO ####[facility] (DEFAULT)[address] [facility] [place] [address] EST GFR,Non >=60 Normal >=60 [facility] Comment on above: Performed By: #### C HM7, MGO ####[facility] (DEFAULT)[address] [facility] [place] [address] Glucose [Mass/Vol] 105 mg/dL High 70-99 [facility] Comment on above: Performed By: #### C HM7, MGO ####[facility] (DEFAULT)[address] [place] [address] Osmolality [Osmolality] 291 mosm/kg Normal 278-305 [facility] Comment on above: Performed By: #### Lori HM7, MGO ####[facility] (DEFAULT)[address] [place] [address] Potassium [Moles/Vol] 3.0 mmol/L Low 3.5-5.0 [facility] Comment on above: Performed By: #### C HM7, MGO ####[facility] (DEFAULT)[address] [place] [address] Sodium [Moles/Vol] 138 mmol/L Normal 133-143 [facility] Comment on above: Performed By: #### C HM7, MGO ####[facility] (DEFAULT)[address] [place] [address] Urea nitrogen [Mass/Vol] 23 mg/dL High 7-22 [facility] Comment on above: Performed By: #### Lori HM7, MGO ####[facility] (DEFAULT)[address] [place] [address] Urea nitrogen/Creatinine [Mass ratio] 62 mg/mg Normal [facility] Comment on above: Performed By: #### Lori HM7, MGO ####[facility] (DEFAULT)[address] [place] [address] MAGNESIUMon 09-18-2021 Magnesium [Mass/Vol] 2.2 mg/dL Normal 1.6-2.6 [facility] Comment on above: Performed By: #### C HM7, MGO ####[facility] (DEFAULT)[address] [place] [address] POTASSIUMon 09-18-2021 Potassium [Moles/Vol] 4.2 mmol/L Normal 3.5-5.0 [facility] Comment on above: Order Comment: If po tassium level is less than or equal to 3.0 mmol/L, recheck potassium 4 hours after replacement. Result Comment: Resu lts inconsistent with previous results Performed By: #### K KO ####[facility] (DEFAULT)[address] [place] [address] XR CHEST PORTABLEon 09-18-20 21 XR CHEST PORTABLE Normal [facility] XR CHEST PORTABLE Normal [facility] ANTI XA LMWH (ENOXAPARIN),*E XACT TIME REQUIRED* 4 HR Sourav 09-17-2021 Anti Xa LMWH (Enoxaparin) 4 Hr Post 0.82 Anti-Xa IU/mL Normal 0.60-1.00 [facility] Comment on above: Order Comment: Draw 4 hours after enoxaparin dose Result Comment: Ther apeutic range applies to 4 hour post dose collections. Performed By: #### A XLMPK ####[facility] (DEFAULT)[address] [place] [address] CKon 09-17-2021 CK [Catalytic activity/Vol] 22 U/L Low 30-184 [facility] Comment on above: Order Comment: While on Propofol. Performed By: #### K KO, CKB, MGO, IPB, TRIG ####[facility] (DEFAULT)[address] [place] [address] MAGNESIUMon 09-17-2021 Magnesium [Mass/Vol] 1.9 mg/dL Normal 1.6-2.6 [facility] Comment on above: Performed By: #### M GO ####[facility] (DEFAULT)[address] [place] [address] Magnesium [Mass/Vol] 2.3 mg/dL Normal 1.6-2.6 [facility] Comment on above: Performed By: #### K KO, CKB, MGO, IPB, TRIG ####[facility] (DEFAULT)[address] [place] [address] PHOSPHATE, INORGANICon 09-17 Phosphorous 5.4 mg/dL High 2.2-4.6 [facility] Comment on above: Performed By: #### Kyra BISHOP, CKB, MGO, IPB, TRIG ####[facility] (DEFAULT)[address] [facility] [place] [address] POTASSIUMon 09-17-2021 Potassium [Moles/Vol] 3.6 mmol/L Normal 3.5-5.0 [facility] Comment on above: Performed By: #### Kyra BISHOP, CKB, MGO, IPB, TRIG ####[facility] (DEFAULT)[address] [place] [address] TRIGLYCERIDEon 09-17-2021 Triglyceride [Mass/Vol] 234 mg/dL High <150 [facility] Comment on above: Order Comment: While on Propofol. Result Comment: [<15 0 mg/dL: Desirable][150-199 mg/dL: Borderline][200-499 mg/dL: High][>500 mg/dL: Very High] Performed By: #### Kyra BISHOP, CKB, MGO, IPB, TRIG ####[facility] (DEFAULT)[address] [place] [address] XR CHEST PORTABLEon 09-17-20 XR CHEST PORTABLE Normal [facility] CBC,PLATELETSon 09-16-2021 Hematocrit (Bld) [Volume fraction] 26.5 % Low 34.9-44.3 [facility] Comment on above: Performed By: #### E DIF2, HEMOGC ####[facility] (DEFAULT)[address] [place] [address] Hemoglobin (Bld) [Mass/Vol] 7.9 g/dL Low 11.4-15.2 [facility] Comment on above: Performed By: #### Honey DIF2, HEMOGC ####[facility] (DEFAULT)[address] [place] [address] MCV (RBC) [Entitic vol] 86.6 fL Normal 79.6-97.7 [facility] Comment on above: Performed By: #### E DIF2, HEMOGC ####[facility] (DEFAULT)[address] [place] [address] Mean Cell Hgb 25.8 pg Low 25.9-33.9 [facility] Comment on above: Performed By: #### E DIF2, HEMOGC ####[facility] (DEFAULT)[address] [facility] [place] [address] Mean Cell Hgb Conc 29.8 g/dL Low 31.4-35.9 [facility] Comment on above: Performed By: #### E DIF2, HEMOGC ####[facility] (DEFAULT)[address] [facility] [place] [place] [address] Platelet mean volume (Bld) [Entitic vol] 11.3 fL Normal 8.5-12.2 [facility] Comment on above: Performed By: #### E DIF2, HEMOGC ####[facility] (DEFAULT)[address] [facility] [place] [place] [address] Platelets (Bld) [#/Vol] 241 10*3/uL Normal 150-393 [facility] Comment on above: Performed By: #### E DIF2, HEMOGC ####[facility] (DEFAULT)[address] [facility] [place] [place] [address] RBC (Bld) [#/Vol] 3.06 10*6/uL Low 3.91-5.04 [facility] Comment on above: Performed By: #### E DIF2, HEMOGC ####[facility] (DEFAULT)[address] [place] [address] RBC Distribution 15.7 % High 10.8-14.9 [facility] Comment on above: Performed By: #### E DIF2, HEMOGC ####[facility] (DEFAULT)[address] [place] [address] WBC (Bld) [#/Vol] 10.05 10*3/uL Normal 3.99-11.19 [facility] Comment on above: Performed By: #### E DIF2, HEMOGC ####[facility] (DEFAULT)[address] [place] [address] CHEM 7 (LYTES,BUN,CREA,GLUC) on 09-16-2021 Anion Gap Normal [facility] Comment on above: Result Comment: Not Calculated Performed By: #### C HM7, MGO ####[facility] (DEFAULT)[address] [place] [address] Chloride [Moles/Vol] 86 mmol/L Low 98-108 [facility] Comment on above: Performed By: #### C HM7, MGO ####[facility] (DEFAULT)[address] [place] [address] CO2 [Moles/Vol] mmol/L Critically high 22-30 [facility] Comment on above: Performed By: #### C HM7, MGO ####[facility] (DEFAULT)[address] [place] [address] Creatinine [Mass/Vol] 0.35 mg/dL Low 0.50-1.20 [facility] Comment on above: Performed By: #### C HM7, MGO ####[facility] (DEFAULT)[address] [place] [address] EST GFR, >=60 Normal >=60 [facility] Comment on above: Performed By: #### C HM7, MGO ####[facility] (DEFAULT)[address] [place] [address] EST GFR,Non >=60 Normal >=60 [facility] Comment on above: Performed By: #### C HM7, MGO ####[facility] (DEFAULT)[address] [place] [address] Glucose [Mass/Vol] 109 mg/dL High 70-99 [facility] Comment on above: Performed By: #### C HM7, MGO ####[facility] (DEFAULT)[address] [place] [address] Osmolality [Osmolality] 293 mosm/kg Normal 278-305 [facility] Comment on above: Performed By: #### C HM7, MGO ####[facility] (DEFAULT)[address] [place] [address] Potassium [Moles/Vol] 3.9 mmol/L Normal 3.5-5.0 [facility] Comment on above: Performed By: #### C HM7, MGO ####[facility] (DEFAULT)[address] [place] [address] Sodium [Moles/Vol] 138 mmol/L Normal 133-143 [facility] Comment on above: Performed By: #### C HM7, MGO ####[facility] (DEFAULT)[address] [place] [address] Urea nitrogen [Mass/Vol] 23 mg/dL High 7-22 [facility] Comment on above: Performed By: #### C HM7, MGO ####[facility] (DEFAULT)[address] [place] [address] Urea nitrogen/Creatinine [Mass ratio] 66 mg/mg Normal [facility] Comment on above: Performed By: #### C HM7, MGO ####[facility] (DEFAULT)[address] [place] [address] Anion gap [Moles/Vol] 11 mmol/L Normal 7-17 [facility] Comment on above: Performed By: #### C HM7 ####[facility] (DEFAULT)[address] [place] [address] Chloride [Moles/Vol] 83 mmol/L Low 98-108 [facility] Comment on above: Performed By: #### C HM7 ####[facility] (DEFAULT)[address] [facility] [place] [place] [address] CO2 [Moles/Vol] 45 mmol/L Critically high 22-30 [facility] Comment on above: Performed By: #### C HM7 ####[facility] (DEFAULT)[address] [place] [address], [place] [address] Creatinine [Mass/Vol] 0.34 mg/dL Low 0.50-1.20 [facility] Comment on above: Performed By: #### C HM7 ####[facility] (DEFAULT)[address] [place] [address], [place] [address] EST GFR, >=60 Normal >=60 [facility] Comment on above: Performed By: #### C HM7 ####[facility] (DEFAULT)[address] [place] [address], [place] [address] EST GFR,Non >=60 Normal >=60 [facility] Comment on above: Performed By: #### C HM7 ####[facility] (DEFAULT)[address] [place] [address], [place] [address] Glucose [Mass/Vol] 110 mg/dL High 70-99 [facility] Comment on above: Performed By: #### C HM7 ####[facility] (DEFAULT)[address] [place] [address], [place] [address] Osmolality [Osmolality] 291 mosm/kg Normal 278-305 [facility] Comment on above: Performed By: #### C HM7 ####[facility] (DEFAULT)[address] [place] [address], [place] [address] Potassium [Moles/Vol] 3.2 mmol/L Low 3.5-5.0 [facility] Comment on above: Performed By: #### C HM7 ####[facility] (DEFAULT)[address] [place] [address] Sodium [Moles/Vol] 136 mmol/L Normal 133-143 [facility] Comment on above: Performed By: #### C HM7 ####[facility] (DEFAULT)[address] [place] [address] Urea nitrogen [Mass/Vol] 31 mg/dL High 7-22 [facility] Comment on above: Performed By: #### C HM7 ####[facility] (DEFAULT)[address] [address] [place] [address] Urea nitrogen/Creatinine [Mass ratio] 91 mg/mg Normal [facility] Comment on above: Performed By: #### C HM7 ####[facility] (DEFAULT)[address] [place] [address] ELECTRONIC DIFFon 09-16-2021 Abs Baso Auto Normal [facility] Comment on above: Performed By: #### E DIF2, HEMOGC ####[facility] (DEFAULT)[address] [place] [address] Abs Eos Auto Normal [facility] Comment on above: Performed By: #### E DIF2, HEMOGC ####[facility] (DEFAULT)[address] [facility] [place] [address] Abs Lymph Auto Normal [facility] Comment on above: Performed By: #### E DIF2, HEMOGC ####[facility] (DEFAULT)[address] [place] [address] Abs Moca Auto Normal [facility] Comment on above: Performed By: #### E DIF2, HEMOGC ####[facility] (DEFAULT)[address] [place] [address] Basophil % Auto Normal [facility] Comment on above: Performed By: #### E DIF2, HEMOGC ####[facility] (DEFAULT)[address] [place] [address] Eosinophil % Auto Normal [facility] Comment on above: Performed By: #### E DIF2, HEMOGC ####[facility] (DEFAULT)[address] [place] [address] Immature Grans % Normal [facility] Comment on above: Performed By: #### E DIF2, HEMOGC ####[facility] (DEFAULT)[address] [place] [address] Immature Grans Absolute Normal [facility] Comment on above: Performed By: #### E DIF2, HEMOGC ####[facility] (DEFAULT)[address] [place] [address] Lymphocyte % Auto Normal [facility] Comment on above: Performed By: #### E DIF2, HEMOGC ####[facility] (DEFAULT)[address] [facility] [place] [address] Monocyte % Auto Normal [facility] Comment on above: Performed By: #### E DIF2, HEMOGC ####[facility] (DEFAULT)[address] [facility] [place] [address] Nucleated RBC Normal [facility] Comment on above: Performed By: #### E DIF2, HEMOGC ####[facility] (DEFAULT)[address] [facility] [place] [address] Segs + Bands Auto Normal [facility] Comment on above: Performed By: #### E DIF2, HEMOGC ####[facility] (DEFAULT)[address] [facility] [place] [address] Segs + Bands,Absolute Auto Normal [facility] Comment on above: Performed By: #### E DIF2, HEMOGC ####[facility] (DEFAULT)[address] [facility] [place] [address] MAGNESIUMon 09-16-2021 Magnesium [Mass/Vol] 1.9 mg/dL Normal 1.6-2.6 [facility] Comment on above: Performed By: #### C HM7, MGO ####[facility] (DEFAULT)[address] [place] [address] VANCOMYCIN LEVEL, TROUGH (HI E DRUG LEVEL)on 09-16-2021 Vancomycin, Trough 17.7 mcg/mL Normal Therapeut ic Range: 10.0-20.0 mcg/mL [facility] Comment on above: Order Comment: Draw one hour prior to 1500 dose. Hold for trough >20. Performed By: #### V ANCTR ####[facility] (DEFAULT)[address] [place] [address] ANTI XA LMWH (ENOXAPARIN), R ANDOMon 09-15-2021 Anti Xa LMWH (Enoxaparin) Random 0.39 Anti-Xa IU/mL Low 0.60-1.00 [facility] Comment on above: Result Comment: Ther apeutic range applies to 4 hour post dose collections.Therapeutic range may not apply for random levels. Please contact pharmacy to assist with LMWH dosing prior to administering next scheduled dose. Performed By: #### A XLMWH ####[facility] (DEFAULT)[address] [place] [address] ANTI XA LMWH (ENOXAPARIN),*E XACT TIME REQUIRED* 4 HR Sourav 09-15-2021 Anti Xa LMWH (Enoxaparin) 4 Hr Post 1.29 Anti-Xa IU/mL High 0.60-1.00 [facility] Comment on above: Order Comment: Draw 4 hours after enoxaparin dose Result Comment: Ther apeutic range applies to 4 hour post dose collections. Performed By: #### A XLMPK ####[facility] (DEFAULT)[address] [place] [address] CHEM 7 (LYTES,BUN,CREA,GLUC) on 09-15-2021 Anion Gap Normal [facility] Comment on above: Result Comment: Not Calculated Performed By: #### M GO, VANCO, TRIG, CHM7, CKB ####[facility] (DEFAULT)[address] [place] [address] Chloride [Moles/Vol] 81 mmol/L Low 98-108 [facility] Comment on above: Performed By: #### M GO, VANCO, TRIG, CHM7, CKB ####[facility] (DEFAULT)[address] [place] [address] CO2 [Moles/Vol] mmol/L Critically high 22-30 [facility] Comment on above: Performed By: #### M GO, VANCO, TRIG, CHM7, CKB ####[facility] (DEFAULT)[address] [place] [address] Creatinine [Mass/Vol] 0.43 mg/dL Low 0.50-1.20 [facility] Comment on above: Performed By: #### M GO VANCO, TRIG, CHM7, CKB ####[facility] (DEFAULT)[address] [place] [address] EST GFR, >=60 Normal >=60 [facility] Comment on above: Performed By: #### M GO VANCO, TRIG, CHM7, CKB ####[facility] (DEFAULT)[address] [place] [address] EST GFR,Non >=60 Normal >=60 [facility] Comment on above: Performed By: #### M GO VANCO, TRIG, CHM7, CKB ####[facility] (DEFAULT)[address] [place] [address] Glucose [Mass/Vol] 118 mg/dL High 70-99 [facility] Comment on above: Performed By: #### M GO, VANCO, TRIG, CHM7, CKB ####[facility] (DEFAULT)[address] [place] [address] Osmolality [Osmolality] 297 mosm/kg Normal 278-305 [facility] Comment on above: Performed By: #### M GO, VANCO, TRIG, CHM7, CKB ####[facility] (DEFAULT)[address] [place] [address] Potassium [Moles/Vol] 3.4 mmol/L Low 3.5-5.0 [facility] Comment on above: Performed By: #### M GO, VANCO, TRIG, CHM7, CKB ####[facility] (DEFAULT)[address] [place] [address] Sodium [Moles/Vol] 137 mmol/L Normal 133-143 [facility] Comment on above: Performed By: #### M GO, VANCO, TRIG, CHM7, CKB ####[facility] (DEFAULT)[address] [place] [address] Urea nitrogen [Mass/Vol] 41 mg/dL High 7-22 [facility] Comment on above: Performed By: #### M GO, VANCO, TRIG, CHM7, CKB ####[facility] (DEFAULT)[address] [facility] [place] [address] Urea nitrogen/Creatinine [Mass ratio] 95 mg/mg Normal [facility] Comment on above: Performed By: #### M GO, VANCO, TRIG, CHM7, CKB ####[facility] (DEFAULT)[address] [facility] [place] [address] CKon 09-15-2021 CK [Catalytic activity/Vol] 35 U/L Normal 30-184 [facility] Comment on above: Order Comment: While on Propofol. Performed By: #### M GO, VANCO, TRIG, CHM7, CKB ####[facility] (DEFAULT)[address] [place] [address] HIGH SENSITIVITY TROPONIN I - SINGLE ORDERon 09-15-2021 hs-Troponin I <3 Normal <34 [facility] Comment on above: Order Comment: Acute Coronary Syndrome (ACS): Initial Evaluation and Management:[email or web address] Performed By: #### L ABHSTI1 ####[facility] (DEFAULT)[address] [place] [address] MAGNESIUMon 09-15-2021 Magnesium [Mass/Vol] 2.3 mg/dL Normal 1.6-2.6 [facility] Comment on above: Performed By: #### M MARKO, VANCO, TRIG, CHM7, CKB ####[facility] (DEFAULT)[address] [place] [address] TRIGLYCERIDEon 09-15-2021 Triglyceride [Mass/Vol] 270 mg/dL High <150 [facility] Comment on above: Order Comment: While on Propofol. Result Comment: [<15 0 mg/dL: Desirable][150-199 mg/dL: Borderline][200-499 mg/dL: High][>500 mg/dL: Very High] Performed By: #### M GO, VANCO, TRIG, CHM7, CKB ####[facility] (DEFAULT)[address] [place] [address] VANCOMYCIN LEVEL, RANDOMon 11-15-2020 Vancomycin 15.2 mcg/mL Normal Peak: 20.0-40.0 mcg/mL, Trough: 10.0-20.0 mcg/mL [facility] Comment on above: Order Comment: Pleas e draw level as scheduled. Performed By: #### M GO, VANCO, TRIG, CHM7, CKB ####[facility] (DEFAULT)[address] [place] [address] ASPERGILLUS ANTIGEN, BALon 11-14-2020 ASPERGILLUS AG, INTERP Detected Invalid Interpretation Code Not Detected [facility] Comment on above: Result Comment: An I ndex <0.50 is considered to be negative.An Index >=0.50 is considered to be positive.A positive result for patients being treated withpiperacillin-tazobactam and other beta-lactamantibiotics such as amoxicillin-clavulanate may danelle false positive due to cross reactivity and shouldbe viewed in conjunction with all clinical findings.Positive results with this assay has also been reportedin patients infected with Penicillium marneffei andCryptococcus.Test Performed at:[facility] [address] [id number] Duval M.D., Ph.D.,Director of Laboratories Performed By: #### X ASGFL ####[facility] (DEFAULT)[address] [place] [address], [place] [address] ASPERGILLUS ANTIGEN,FLUID 0.52 High <0.50 [facility] Comment on above: Result Comment: Resu lts for bronchoalveolar lavage between 0.50 and1.00 have a lower specificity and positive predictivevalue. Recommend to support evidence of invasiveaspergillosis with other clinical information. Performed By: #### X ASGFL ####[facility] (DEFAULT)[address] [place] [address], [place] [address] CBC,PLATELETSon 09-14-2021 Hematocrit (Bld) [Volume fraction] 30.0 % Low 34.9-44.3 [facility] Comment on above: Performed By: #### E DIF2, HEMOGC ####[facility] (DEFAULT)[address] [place] [address], [place] [address] Hemoglobin (Bld) [Mass/Vol] 8.8 g/dL Low 11.4-15.2 [facility] Comment on above: Performed By: #### E DIF2, HEMOGC ####[facility] (DEFAULT)[address] [place] [address], [place] [address] MCV (RBC) [Entitic vol] 87.0 fL Normal 79.6-97.7 [facility] Comment on above: Performed By: #### E DIF2, HEMOGC ####[facility] (DEFAULT)[address] [place] [address] Mean Cell Hgb 25.5 pg Low 25.9-33.9 [facility] Comment on above: Performed By: #### E DIF2, HEMOGC ####[facility] (DEFAULT)[address] [place] [address] Mean Cell Hgb Conc 29.3 g/dL Low 31.4-35.9 [facility] Comment on above: Performed By: #### E DIF2, HEMOGC ####[facility] (DEFAULT)[address] [facility] [place] [address] Platelet mean volume (Bld) [Entitic vol] 11.0 fL Normal 8.5-12.2 [facility] Comment on above: Performed By: #### E DIF2, HEMOGC ####[facility] (DEFAULT)[address] [facility] [place] [address] Platelets (Bld) [#/Vol] 367 10*3/uL Normal 150-393 [facility] Comment on above: Performed By: #### E DIF2, HEMOGC ####[facility] (DEFAULT)[address] [facility] [place] [address] RBC (Bld) [#/Vol] 3.45 10*6/uL Low 3.91-5.04 [facility] Comment on above: Performed By: #### E DIF2, HEMOGC ####[facility] (DEFAULT)[address] [facility] [place] [address] RBC Distribution 15.0 % High 10.8-14.9 [facility] Comment on above: Performed By: #### E DIF2, HEMOGC ####[facility] (DEFAULT)[address] [facility] [place] [address] WBC (Bld) [#/Vol] 11.80 10*3/uL High 3.99-11.19 [facility] Comment on above: Performed By: #### E DIF2, HEMOGC ####[facility] (DEFAULT)[address] [place] [address] CHEM 7 (LYTES,BUN,CREA,GLUC) on 09-14-2021 Anion Gap Normal [facility] Comment on above: Result Comment: Not Calculated Performed By: #### C HM7, IPB, MGO ####[facility] (DEFAULT)[address] [place] [address] Chloride [Moles/Vol] 80 mmol/L Low 98-108 [facility] Comment on above: Performed By: #### C HM7, IPB, MGO ####[facility] (DEFAULT)[address] [place] [address] CO2 [Moles/Vol] mmol/L Critically high 22-30 [facility] Comment on above: Performed By: #### C HM7, IPB, MGO ####[facility] (DEFAULT)[address] [place] [address] Creatinine [Mass/Vol] 0.40 mg/dL Low 0.50-1.20 [facility] Comment on above: Performed By: #### C HM7, IPB, MGO ####[facility] (DEFAULT)[address] [place] [address] EST GFR, >=60 Normal >=60 [facility] Comment on above: Performed By: #### C HM7, IPB, MGO ####[facility] (DEFAULT)[address] [place] [address] EST GFR,Non >=60 Normal >=60 [facility] Comment on above: Performed By: #### C HM7, IPB, MGO ####[facility] (DEFAULT)[address] [place] [address] Glucose [Mass/Vol] 116 mg/dL High 70-99 [facility] Comment on above: Performed By: #### C HM7, IPB, MGO ####[facility] (DEFAULT)[address] [place] [address] Osmolality [Osmolality] 299 mosm/kg Normal 278-305 [facility] Comment on above: Performed By: #### C HM7, IPB, MGO ####[facility] (DEFAULT)[address] [facility] [place] [address] Potassium [Moles/Vol] 3.4 mmol/L Low 3.5-5.0 [facility] on above: Performed By: #### C HM7, IPB, MGO ####[facility] (DEFAULT)[address] [facility] [place] [address] Sodium [Moles/Vol] 140 mmol/L Normal 133-143 [facility] Comment on above: Performed By: #### C HM7, IPB, MGO ####[facility] (DEFAULT)[address] [facility] [place] [address] Urea nitrogen [Mass/Vol] 30 mg/dL High 7-22 [facility] Comment on above: Performed By: #### C HM7, IPB, MGO ####[facility] (DEFAULT)[address] [place] [address] Urea nitrogen/Creatinine [Mass ratio] 75 mg/mg Normal [facility] Comment on above: Performed By: #### Lori HM7, IPB, MGO ####[facility] (DEFAULT)[address] [place] [address] CMV BY PCR, QUANTITATIVE, BL OODon 09-14-2021 CMV By Pcr, Iu/Ml, Plasma <50 Normal <50 [facility] Comment on above: Order Comment: This test was performed using a real time CMV PCR assay. The dynamic range for this assay is 50-156,000,000 IU/mL. Results should be interpreted in conjunction with other clinical and laboratory. Performed By: #### C MVPCR ####[facility] (DEFAULT)[address] [place] [address] ELECTRONIC DIFFon 09-14-2021 Basophils (Bld) [#/Vol] 0.07 10*3/uL Normal 0.00-0.15 [facility] Comment on above: Performed By: #### E DIF2, HEMOGC ####[facility] (DEFAULT)[address] [place] [address] Basophils/100 WBC (Bld) 0.6 % Normal [facility] Comment on above: Performed By: #### E DIF2, HEMOGC ####[facility] (DEFAULT)[address] [place] [address] Eosinophils (Bld) [#/Vol] 0.70 10*3/uL High 0.00-0.42 [facility] Comment on above: Performed By: #### E DIF2, HEMOGC ####[facility] (DEFAULT)[address] [place] [address] Eosinophils/100 WBC (Bld) 5.9 % Normal [facility] Comment on above: Performed By: #### E DIF2, HEMOGC ####[facility] (DEFAULT)[address] [place] [address] Immature Grans % 4.6 % Normal [facility] Comment on above: Performed By: #### E DIF2, HEMOGC ####[facility] (DEFAULT)[address] [place] [address] Immature Grans Absolute 0.54 K/uL High <=0.09 [facility] Comment on above: Performed By: #### E DIF2, HEMOGC ####[facility] (DEFAULT)[address] [place] [address] Lymphocytes (Bld) [#/Vol] 1.84 10*3/uL Normal 1.16-3.51 [facility] Comment on above: Performed By: #### E DIF2, HEMOGC ####[facility] (DEFAULT)[address] [place] [address] Lymphocytes/100 WBC (Bld) 15.6 % Normal [facility] Comment on above: Performed By: #### E DIF2, HEMOGC ####[facility] (DEFAULT)[address] [place] [address] Monocytes (Bld) [#/Vol] 0.65 10*3/uL Normal 0.22-0.87 [facility] Comment on above: Performed By: #### E DIF2, HEMOGC ####[facility] (DEFAULT)[address] [place] [address] Monocytes/100 WBC (Bld) 5.5 % Normal [facility] Comment on above: Performed By: #### E DIF2, HEMOGC ####[facility] (DEFAULT)[address] [place] [address] Nucleated RBC 0.0 /100 WBC Normal <=0.2 [facility] Comment on above: Performed By: #### E DIF2, HEMOGC ####[facility] (DEFAULT)[address] [place] [address] Segs + Bands Auto 67.8 % Normal [facility] Comment on above: Performed By: #### E DIF2, HEMOGC ####[facility] (DEFAULT)[address] [place] [address] Segs + Bands,Absolute Auto 8.00 K/uL High 1.64-7.28 [facility] Comment on above: Performed By: #### E DIF2, HEMOGC ####[facility] (DEFAULT)[address] [place] [address] MAGNESIUMon 09-14-2021 Magnesium [Mass/Vol] 1.7 mg/dL Normal 1.6-2.6 [facility] Comment on above: Performed By: #### C HM7, IPB, MGO ####[facility] (DEFAULT)[address] [facility] [place] [address] PHOSPHATE, INORGANICon 09-14 Phosphorous 4.0 mg/dL Normal 2.2-4.6 [facility] Comment on above: Performed By: #### C HM7, IPB, MGO ####[facility] (DEFAULT)[address] [place] [address] VANCOMYCIN LEVEL, TROUGH (HI E DRUG LEVEL)on 09-14-2021 Vancomycin, Trough 36.7 mcg/mL Critically high Therap eutic Range: 10.0-20.0 mcg/mL [facility] Comment on above: Order Comment: Draw one hour prior to 1300 dose. Hold for trough >20. Performed By: #### V ANCTR ####[facility] (DEFAULT)[address] [place] [address] CHEM 7 (LYTES,BUN,CREA,GLUC) on 09-13-2021 Anion Gap Normal [facility] Comment on above: Result Comment: Not Calculated Performed By: #### C HM7, CKB, TRIG ####[facility] (DEFAULT)[address] [place] [address] Chloride [Moles/Vol] 82 mmol/L Low 98-108 [facility] Comment on above: Performed By: #### C HM7, CKB, TRIG ####[facility] (DEFAULT)[address] [facility] [place] [address] CO2 [Moles/Vol] mmol/L Critically high 22-30 [facility] Comment on above: Performed By: #### C HM7, CKB, TRIG ####[facility] (DEFAULT)[address] [place] [address] Creatinine [Mass/Vol] 0.47 mg/dL Low 0.50-1.20 [facility] Comment on above: Performed By: #### C HM7, CKB, TRIG ####[facility] (DEFAULT)[address] [place] [address] EST GFR, >=60 Normal >=60 [facility] Comment on above: Performed By: #### C HM7, CKB, TRIG ####[facility] (DEFAULT)[address] [place] [address] EST GFR,Non >=60 Normal >=60 [facility] Comment on above: Performed By: #### C HM7, CKB, TRIG ####[facility] (DEFAULT)[address] [place] [address] Glucose [Mass/Vol] 92 mg/dL Normal 70-99 [facility] Comment on above: Performed By: #### C HM7, CKB, TRIG ####[facility] (DEFAULT)[address] [place] [address] Osmolality [Osmolality] 295 mosm/kg Normal 278-305 [facility] Comment on above: Performed By: #### C HM7, CKB, TRIG ####[facility] (DEFAULT)[address] [place] [address] Potassium [Moles/Vol] 4.5 mmol/L Normal 3.5-5.0 [facility] Comment on above: Result Comment: Slig htly hemolyzed Performed By: #### C HM7, CKB, TRIG ####[facility] (DEFAULT)[address] [place] [address] Sodium [Moles/Vol] 138 mmol/L Normal 133-143 [facility] Comment on above: Performed By: #### C HM7, CKB, TRIG ####[facility] (DEFAULT)[address] [place] [address] Urea nitrogen [Mass/Vol] 28 mg/dL High 7-22 [facility] Comment on above: Performed By: #### C HM7, CKB, TRIG ####[facility] (DEFAULT)[address] [place] [address] Urea nitrogen/Creatinine [Mass ratio] 60 mg/mg Normal [facility] Comment on above: Performed By: #### C HM7, CKB, TRIG ####[facility] (DEFAULT)[address] [facility] [place] [address] CKon 09-13-2021 CK [Catalytic activity/Vol] 15 U/L Low 30-184 [facility] Comment on above: Order Comment: While on Propofol. Result Comment: Slig htly hemolyzed Performed By: #### C HM7, CKB, TRIG ####[facility] (DEFAULT)[address] [place] [address] TRIGLYCERIDEon 09-13-2021 Triglyceride [Mass/Vol] 227 mg/dL High <150 [facility] Comment on above: Order Comment: While on Propofol. Result Comment: [<15 0 mg/dL: Desirable][150-199 mg/dL: Borderline][200-499 mg/dL: High][>500 mg/dL: Very High] Performed By: #### C HM7, CKB, TRIG ####[facility] (DEFAULT)[address] [place] [address] C REACTIVE PROTEINon 021 CRP [Mass/Vol] 180.83 mg/L High <10.00 [facility] Comment on above: Performed By: #### C HM7, CRP ####[facility] (DEFAULT)[address] [place] [address] CBC,PLATELETSon 09-12-2021 Hematocrit (Bld) [Volume fraction] 29.8 % Low 34.9-44.3 [facility] Comment on above: Performed By: #### H EMOGC ####[facility] (DEFAULT)[address] [place] [address] Hemoglobin (Bld) [Mass/Vol] 8.6 g/dL Low 11.4-15.2 [facility] Comment on above: Performed By: #### H EMOGC ####[facility] (DEFAULT)[address] [place] [address] MCV (RBC) [Entitic vol] 91.1 fL Normal 79.6-97.7 [facility] Comment on above: Performed By: #### H EMOGC ####[facility] (DEFAULT)[address] [place] [address] Mean Cell Hgb 26.3 pg Normal 25.9-33.9 [facility] Comment on above: Performed By: #### H EMOGC ####[facility] (DEFAULT)[address] [facility] [place] [place] [address] Mean Cell Hgb Conc 28.9 g/dL Low 31.4-35.9 [facility] Comment on above: Performed By: #### H EMOGC ####[facility] (DEFAULT)[address] [place] [address] Platelet mean volume (Bld) [Entitic vol] 11.2 fL Normal 8.5-12.2 [facility] Comment on above: Performed By: #### H EMOGC ####[facility] [facility] (DEFAULT)[address] [facility] [place] [address] Platelets (Bld) [#/Vol] 317 10*3/uL Normal 150-393 [facility] Comment on above: Performed By: #### H EMOGC ####[facility] (DEFAULT)[address] [place] [address] RBC (Bld) [#/Vol] 3.27 10*6/uL Low 3.91-5.04 [facility] Comment on above: Performed By: #### H EMOGC ####[facility] (DEFAULT)[address] [facility] [place] [address] RBC Distribution 15.6 % High 10.8-14.9 [facility] Comment on above: Performed By: #### H EMOGC ####[facility] (DEFAULT)[address] [place] [address] WBC (Bld) [#/Vol] 11.14 10*3/uL Normal 3.99-11.19 [facility] Comment on above: Performed By: #### H EMOGC ####[facility] (DEFAULT)[address] [place] [address] CHEM 7 (LYTES,BUN,CREA,GLUC) on 09-12-2021 Anion Gap Normal [facility] Comment on above: Result Comment: Not Calculated Performed By: #### C HM7, CRP ####[facility] (DEFAULT)[address] [place] [address] Chloride [Moles/Vol] 88 mmol/L Low 98-108 [facility] Comment on above: Performed By: #### C HM7, CRP ####[facility] (DEFAULT)[address] [place] [address] CO2 [Moles/Vol] mmol/L Critically high 22-30 [facility] Comment on above: Performed By: #### C HM7, CRP ####[facility] (DEFAULT)[address] [place] [address] Creatinine [Mass/Vol] 0.40 mg/dL Low 0.50-1.20 [facility] Comment on above: Performed By: #### C HM7, CRP ####[facility] (DEFAULT)[address] [place] [address] EST GFR, >=60 Normal >=60 [facility] Comment on above: Performed By: #### C HM7, CRP ####[facility] (DEFAULT)[address] [place] [address] EST GFR,Non >=60 Normal >=60 [facility] Comment on above: Performed By: #### C HM7, CRP ####[facility] (DEFAULT)[address] [place] [address] Glucose [Mass/Vol] 103 mg/dL High 70-99 [facility] Comment on above: Performed By: #### C HM7, CRP ####[facility] (DEFAULT)[address] [place] [address] Osmolality [Osmolality] 298 mosm/kg Normal 278-305 [facility] Comment on above: Performed By: #### C HM7, CRP ####[facility] (DEFAULT)[address] [place] [address] Potassium [Moles/Vol] 4.0 mmol/L Normal 3.5-5.0 [facility] Comment on above: Performed By: #### C HM7, CRP ####[facility] (DEFAULT)[address] [place] [address] Sodium [Moles/Vol] 141 mmol/L Normal 133-143 [facility] Comment on above: Performed By: #### C HM7, CRP ####[facility] (DEFAULT)[address] [place] [address] Urea nitrogen [Mass/Vol] 21 mg/dL Normal 7-22 [facility] Comment on above: Performed By: #### C HM7, CRP ####[facility] (DEFAULT)[address] [place] [address] Urea nitrogen/Creatinine [Mass ratio] 53 mg/mg Normal [facility] Comment on above: Performed By: #### C HM7, CRP ####[facility] (DEFAULT)[address] [place] [address] ANTI XA LMWH (ENOXAPARIN),*E XACT TIME REQUIRED* 4 HR Sourav 09-11-2021 Anti Xa LMWH (Enoxaparin) 4 Hr Post 0.85 Anti-Xa IU/mL Normal 0.60-1.00 [facility] Comment on above: Order Comment: Draw 4 hours after enoxaparin dose Result Comment: Ther apeutic range applies to 4 hour post dose collections. Performed By: #### A XLMPK ####[facility] (DEFAULT)[address] [place] [address] ASPERGILLUS (GALACTOMANNAN), ANTIGENon 09-11-2021 ASPERGILLUS ANTIGEN Not detected Normal Not Detected [facility] Comment on above: Result Comment: A ne gative result does not exclude invasiveaspergillosis. Follow-up testing may beindicated for high-risk patients.An Index <0.50 is considered to be negative.An Index >=0.50 is considered to be positive.A positive result for patients being treated withpiperacillin-tazobactam and other beta-lactamantibiotics such as amoxicillin-clavulanate may danelle false positive due to cross reactivity and shouldbe viewed in conjunction with all clinical findings.Positive results with this assay has also been reportedin patients infected with Penicillium marneffei andCryptococcus.Test Performed at:[facility] [address] [address]ZovcwawGlen Duval M.D., Ph.D.,Director of Laboratories Performed By: #### Y ASPR ####[facility] (DEFAULT)[address] [place] [address] Aspergillus Index 0.11 Normal <0.50 [facility] Comment on above: Performed By: #### Y ASPR ####[facility] (DEFAULT)[address] [address] BLASTOMYCES, SERUMon 021 BLASTOMYCES AG, SERUM INTERPRETATION Negative Normal [facility] Comment on above: Result Comment: ---- ADDITIONAL INFORMATION Reference interval: None DetectedResults reported as ng/mL in 0.2 - 14.7 ng/mL rangeResults above the limit of detection but below 0.2 ng/mL arereported as 'Positive, Below the Limit of Quantification'Results above 14.7 ng/mL are reported as 'Positive, Abovethe Limit of Quantification'This test was developed and its performance characteristicsdetermined by [employer]. It has not beencleared or approved by the FDA; however, FDA clearance orapproval is not currently required for clinical use. Theresults are not intended to be used as the sole means forclinical diagnosis or patient management decisions.Test Performed by:[id number] [place] [address] Performed By: #### Y FBMS ####[facility] (DEFAULT)[address] [place] [address] BLASTOMYCES AG, SERUM RESULT Not detected Normal [facility] Comment on above: Performed By: #### Y FBMS ####[facility] (DEFAULT)[address] [place] [address] BLASTOMYCES, URINEon BLASTOMYCES AG, URINE INTERPRETATION Not detected Normal [facility] Comment on above: Result Comment: ---- ADDITIONAL INFORMATION This test was developed and its performance characteristicsdetermined by [facility] in a manner consistent withCLIA requirements. This test has not been cleared orapproved by the U.S. Food and Drug Administration.Test Performed by:[facility] [place] [address] Director: Ryan Medrano M.D. Ph.D.; CLIA# [id number] Performed By: #### Y FBMU ####[facility] (DEFAULT)[address] [place] [address] BLASTOMYCES AG, URINE RESULT Not detected Normal Not Detected [facility] Comment on above: Result Comment: No B lastomyces antigen detected.False negative results may occur. Repeat testing on anew specimen should be considered if clinically indicated. Performed By: #### Y FBMU ####[facility] (DEFAULT)[address] [place] [address] BLOOD CULTUREon 09-11-2021 Bacteria identified Cx Nom (Unsp spec) NO GROWTH DAY 5 OF 5 Normal [facility] Comment on above: Order Comment: 2 Bot tles (1 Set - consists of 1 Aerobic bottle and 1 Anaerobic bottle) -1st Peripheral DrawFor syringe method draw:If able to obtain adequate sample (20 ml) inoculate anaerobic bottle firstIf inadequate sample obtained (less than 20 ml) inoculate aerobic bottle firstFor vacutainer method draw: Fill aerobic bottle first, then anaerobic Performed By: #### B LDCULT ####[facility] (DEFAULT)[address] [place] [address] CHEM 7 (LYTES,BUN,CREA,GLUC) on 09-11-2021 Anion gap [Moles/Vol] 15 mmol/L Normal 7-17 [facility] Comment on above: Performed By: #### I PB, HFP, MGO, LIPA, CHM7 ####[facility] (DEFAULT)[address] [facility] [place] [address] Chloride [Moles/Vol] 93 mmol/L Low 98-108 [facility] Comment on above: Performed By: #### I PB, HFP, MGO, LIPA, CHM7 ####[facility] (DEFAULT)[address] [place] [address] CO2 [Moles/Vol] 39 mmol/L High 22-30 [facility] Comment on above: Performed By: #### I PB, HFP, MGO, LIPA, CHM7 ####[facility] (DEFAULT)[address] [facility] [place] [address] Creatinine [Mass/Vol] 0.33 mg/dL Low 0.50-1.20 [facility] Comment on above: Performed By: #### I PB, HFP, MGO, LIPA, CHM7 ####[facility] (DEFAULT)[address] [facility] [place] [place] [address] EST GFR, >=60 Normal >=60 [facility] Comment on above: Performed By: #### I PB, HFP, MGO, LIPA, CHM7 ####[facility] (DEFAULT)[address] [facility] [place] [place] [address] EST GFR,Non >=60 Normal >=60 [facility] Comment on above: Performed By: #### I PB, HFP, MGO, LIPA, CHM7 ####[facility] (DEFAULT)[address] [place] [address] Glucose [Mass/Vol] 134 mg/dL High 70-99 [facility] Comment on above: Performed By: #### I PB, HFP, MGO, LIPA, CHM7 ####[facility] (DEFAULT)[address] [place] [address] Osmolality [Osmolality] 304 mosm/kg Normal 278-305 [facility] Comment on above: Performed By: #### I PB, HFP, MGO, LIPA, CHM7 ####[facility] (DEFAULT)[address] [place] [address] Potassium [Moles/Vol] 5.0 mmol/L Normal 3.5-5.0 [facility] Comment on above: Performed By: #### I PB, HFP, MGO, LIPA, CHM7 ####[facility] (DEFAULT)[address] [place] [address] Sodium [Moles/Vol] 142 mmol/L Normal 133-143 [facility] Comment on above: Performed By: #### I PB, HFP, MGO, LIPA, CHM7 ####[facility] (DEFAULT)[address] [place] [address] Urea nitrogen [Mass/Vol] 22 mg/dL Normal 7-22 [facility] Comment on above: Performed By: #### I PB, HFP, MGO, LIPA, CHM7 ####[facility] (DEFAULT)[address] [place] [address] Urea nitrogen/Creatinine [Mass ratio] 67 mg/mg Normal [facility] Comment on above: Performed By: #### I PB, HFP, MGO, LIPA, CHM7 ####[facility] (DEFAULT)[address] [place] [address] CKon 09-11-2021 CK [Catalytic activity/Vol] 11 U/L Low 30-184 [facility] Comment on above: Order Comment: While on Propofol. Performed By: #### T RIG, CKB ####[facility] (DEFAULT)[address] [place] [address] FUNGITELL ASSAYon 09-11-2021 Fungitell (R) (1-3) -B-D-Gluca <31 Normal <60 [facility] Comment on above: Performed By: #### Y FFUNG ####[facility] (DEFAULT)[address] [place] [address] Fungitell Interpretation Negative Normal [facility] Comment on above: Result Comment: This assay is for the presumptive diagnosis of fungalinfections and should be used in conjunction withother diagnostic procedures. (1->3)-kubn-T-mxdfewhvwkxb of <60 pg/mL are considered negative andindicate the presumptive absence of fungal infection.Glucan values of >=60 but <79 pg/mL are consideredindeterminate, and glucan values of >=80 pg/mL areconsidered positive and indicate the presumptivepresence of a fungal infection. This assay may notdetect certain fungal species that do not produce orproduce low levels of (1->3)-jgzz-N-jatsdy including:Cryptococcus, Absidia, Mucor, Rhizopus, and the yeastphase of Blastomyces dermatitidis.Test Performed at:[facility] [address] [address]CzvtsbhGlen Duval M.D., Ph.D.,Director of Laboratories Performed By: #### Y FFUNG ####[facility] (DEFAULT)[address] [place] [address] HEPATIC FUNCTION PANELon Albumin [Mass/Vol] 3.5 g/dL Normal 3.5-5.0 [facility] Comment on above: Performed By: #### I PB, HFP, MGO, LIPA, CHM7 ####[facility] (DEFAULT)[address] [place] [address] ALP [Catalytic activity/Vol] 44 U/L Normal 32-126 [facility] Comment on above: Performed By: #### I PB, HFP, MGO, LIPA, CHM7 ####[facility] (DEFAULT)[address] [place] [address] ALT [Catalytic activity/Vol] 54 U/L High 9-48 [facility] Comment on above: Performed By: #### I PB, HFP, MGO, LIPA, CHM7 ####[facility] (DEFAULT)[address] [place] [address] AST [Catalytic activity/Vol] 57 U/L High 14-40 [facility] Comment on above: Performed By: #### I PB, HFP, MGO, LIPA, CHM7 ####[facility] (DEFAULT)[address] [place] [address] Bilirubin [Mass/Vol] 0.8 mg/dL Normal <1.5 [facility] Comment on above: Performed By: #### I PB, HFP, MGO, LIPA, CHM7 ####[facility] (DEFAULT)[address] [place] [address] Bilirubin.indirect [Mass/Vol] 0.2 mg/dL Normal <0.3 [facility] Comment on above: Performed By: #### I PB, HFP, MGO, LIPA, CHM7 ####[facility] (DEFAULT)[address] [place] [address] Protein [Mass/Vol] 7.2 g/dL Normal 6.4-8.3 [facility] Comment on above: Performed By: #### I PB, HFP, MGO, LIPA, CHM7 ####[facility] (DEFAULT)[address] [place] [address] HISTOPLASMA ANTIGEN, SERUMon 11-12-2021 Histo interpretation Negative Normal [facility] Comment on above: Result Comment: ---- ADDITIONAL INFORMATION Reference interval: None DetectedReportable Range: Positive Results reported in ng/mL from0.20 ng/mL to 20.00 ng/mLPositive Results above 20.00 ng/mL are reported as 'Abovethe Limit of Quantification'This test was developed and its performance characteristicsdetermined by [employer]. It has not beencleared or approved by the FDA; however, FDA clearance orapproval is not currently required for clinical use. Theresults are not intended to be used as the sole means forclinical diagnosis or patient management decisions.Test Performed by:[facility] [place] [address] Performed By: #### Y FHIST ####[facility] (DEFAULT)[address] [place] [address] Histoplasma Antigen, serum Not detected Normal [facility] Comment on above: Performed By: #### Y FHIST ####[facility] (DEFAULT)[address] [facility] [place] [place] [address] HISTOPLASMA ANTIGEN,URINEon 09-11-2021 HISTOPLASM AG, URINE Not detected Normal Not Detected [facility] Comment on above: Result Comment: No H istoplasma antigen detected.False negative results may occur. Repeat testing on anew specimen should be considered if clinically indicated. Performed By: #### Y HISTG ####[facility] (DEFAULT)[address] [facility] [place] [place] [address] Histoplasma Ag Value Not detected Normal [facility] Comment on above: Result Comment: ---- ADDITIONAL INFORMATION This test has been modified from the feed mill supervisor'sinstructions. Its performance characteristics weredetermined by [facility] in a manner consistent withCLIA requirements. This test has not been cleared orapproved by the U.S. Food and Drug Administration.Test Performed by:[facility] [place], [place] [address]Qxf Director: Ryan Medrano M.D. Ph.D.; CLIA# [id number] Performed By: #### Y HISTG ####[facility] (DEFAULT)[address] [place] [address], [place] [address] LIPASEon 09-11-2021 Lipase [Catalytic activity/Vol] 42 U/L Normal [facility] Comment on above: Performed By: #### I PB, HFP, MGO, LIPA, CHM7 ####[facility] (DEFAULT)[address] [place] [address], [place] [address] LOWER RESPIRATORY CULTURE, B ACTERIALon 09-11-2021 Amikacin [Susceptibility] <=2 Invalid Interpretation Code [facility] Comment on above: Performed By: #### R ES ####[facility] (DEFAULT)[address] [place] [address], [place] [address] Ampicillin [Susceptibility] >=32 Resistant [facility] Comment on above: Performed By: #### R ES ####[facility] (DEFAULT)[address] [place] [address], [place] [address] Ampicillin+Sulbactam [Susceptibility] 16 ug/mL Significant change up [facility] Comment on above: Performed By: #### R ES ####[facility] (DEFAULT)[address] [place] [address], [place] [address] Cefepime [Susceptibility] <=1 Invalid Interpretation Code [facility] Comment on above: Performed By: #### R ES ####[facility] (DEFAULT)[address] [place] [address], [place] [address] Ciprofloxacin [Susceptibility] <=0.25 Invalid Interpretation Code [facility] Comment on above: Performed By: #### R ES ####[facility] (DEFAULT)[address] [place] [address] [place] [address] Ertapenem [Susceptibility] <=0.5 Invalid Interpretation Code [facility] Comment on above: Performed By: #### R ES ####[facility] (DEFAULT)[address] [place] [address], [place] [address] Gentamicin [Susceptibility] 4 ug/mL Invalid Interpretation Code [facility] Comment on above: Performed By: #### R ES ####[facility] (DEFAULT)[address] [place] [address], [place] [address] Piperacillin+Tazobacta m [Susceptibility] <=4 Invalid Interpretation Code [facility] Comment on above: Performed By: #### R ES ####[facility] (DEFAULT)[address] [place] [address], [place] [address] Tobramycin [Susceptibility] 8 ug/mL Significant change up [facility] Comment on above: Performed By: #### R ES ####[facility] (DEFAULT)[address] [place] [address], [place] [address] Trimethoprim+Sulfameth oxazole [Susceptibility] >=320 Resistant [facility] Comment on above: Performed By: #### R ES ####[facility] (DEFAULT)[address] [place] [address], [place] [address] MAGNESIUMon 09-11-2021 Magnesium [Mass/Vol] 1.9 mg/dL Normal 1.6-2.6 [facility] Comment on above: Performed By: #### I PB, HFP, MGO, LIPA, CHM7 ####[facility] (DEFAULT)[address] [place] [address], [place] [address] PHOSPHATE, INORGANICon 09-11 Phosphorous 4.3 mg/dL Normal 2.2-4.6 [facility] Comment on above: Performed By: #### I PB, HFP, MGO, LIPA, CHM7 ####[facility] (DEFAULT)[address] [place] [address] TRIGLYCERIDEon 09-11-2021 Triglyceride [Mass/Vol] 176 mg/dL High <150 [facility] Comment on above: Order Comment: While on Propofol. Result Comment: [<15 0 mg/dL: Desirable][150-199 mg/dL: Borderline][200-499 mg/dL: High][>500 mg/dL: Very High] Performed By: #### T RIG, CKB ####[facility] (DEFAULT)[address] [facility] [place] [place] [address] URINALYSISon 09-11-2021 Amorphous <25% = Slight Abnormal (none) [facility] Comment on above: Performed By: #### U RIN ####[facility] (DEFAULT)[address] [facility] [place] [place] [address] Appearance (U) Turbid Abnormal Clear [facility] Comment on above: Performed By: #### U RIN ####[facility] (DEFAULT)[address] [facility] [place] [place] [address] Bacteria ABSENT Normal ABSENT [facility] Comment on above: Performed By: #### U RIN ####[facility] (DEFAULT)[address] [place], [place] [address], [place] [address] Blood Urine Trace Abnormal Negative [facility] Comment on above: Performed By: #### U RIN ####[facility] (DEFAULT)[address] [facility] [place] [address] Color (U) Yellow Normal Yellow [facility] Comment on above: Performed By: #### U RIN ####[facility] (DEFAULT)[address] [facility] [place] [place] [address] Glucose Ql (U) Negative Normal Negative [facility] Comment on above: Performed By: #### U RIN ####[facility] (DEFAULT)[address] [facility] [place] [place] [address] Ketones Ql (U) Negative Normal Negative [facility] Comment on above: Performed By: #### U RIN ####[facility] (DEFAULT)[address] [place] [address] Leukocyte esterase Test strip Ql (U) Trace Abnormal Negative [facility] Comment on above: Performed By: #### U RIN ####[facility] (DEFAULT)[address] [place], [place] [address], [place] [address] Nitrites Urine Negative Normal Negative [facility] Comment on above: Performed By: #### U RIN ####[facility] (DEFAULT)[address] [place] [address], [place] [address] pH (U) 8.5 [pH] Abnormal 5.0-7.0 [facility] Comment on above: Performed By: #### U RIN ####[facility] (DEFAULT)[address] [place] [address], [place] [address] Protein Urine 100 mg/dL Abnormal Negative [facility] Comment on above: Performed By: #### U RIN ####[facility] (DEFAULT)[address] [place] [address], [place] [address] RBC Urine 10-20 Abnormal 0-2 [facility] Comment on above: Performed By: #### U RIN ####[facility] (DEFAULT)[address] [place] [address] Specific [place] Urine 1.030 Normal 1.001-1.035 [facility] Comment on above: Performed By: #### U RIN ####[facility] (DEFAULT)[address] [place] [address], [place] [address] Squamous/Epithelial Cells 2-5/hpf = 2+ Normal 1/hpf = 1+, 2-5/hpf = 2+, 0/hpf = 0+, ABSENT [facility] Comment on above: Performed By: #### U RIN ####[facility] (DEFAULT)[address] [place] [address], [place] [address] Urobilinogen Urine 1.0 E.U./dL Normal 0.2-1.0 [facility] Comment on above: Performed By: #### U RIN ####[facility] (DEFAULT)[address] [place] [address] WBC Urine 0-5 Normal 0-5 [facility] Comment on above: Performed By: #### U RIN ####[facility] (DEFAULT)[address] [place] [address] VANCOMYCIN LEVEL, TROUGH (HI E DRUG LEVEL)on 09-11-2021 Vancomycin, Trough 15.2 mcg/mL Normal Therapeut ic Range: 10.0-20.0 mcg/mL [facility] Comment on above: Order Comment: Draw prior to 1300 dose. Hold for trough >20. Performed By: #### V ANCTR ####[facility] (DEFAULT)[address] [place] [address] XR CHEST PORTABLEon 09-11-20 XR CHEST PORTABLE Normal [facility] CBC,PLATELETSon 09-10-2021 Hematocrit (Bld) [Volume fraction] 29.3 % Low 34.9-44.3 [facility] Comment on above: Performed By: #### H EMOGC ####[facility] (DEFAULT)[address] [place] [address] Hemoglobin (Bld) [Mass/Vol] 8.3 g/dL Low 11.4-15.2 [facility] Comment on above: Performed By: #### H EMOGC ####[facility] (DEFAULT)[address] [place] [address] MCV (RBC) [Entitic vol] 90.2 fL Normal 79.6-97.7 [facility] Comment on above: Performed By: #### H EMOGC ####[facility] (DEFAULT)[address] [place] [address] Mean Cell Hgb 25.5 pg Low 25.9-33.9 [facility] Comment on above: Performed By: #### H EMOGC ####[facility] (DEFAULT)[address] [place] [address] Mean Cell Hgb Conc 28.3 g/dL Low 31.4-35.9 [facility] Comment on above: Performed By: #### H EMO ####[facility] (DEFAULT)[address] [facility] [place] [address] Platelet mean volume (Bld) [Entitic vol] 11.3 fL Normal 8.5-12.2 [facility] Comment on above: Performed By: #### H EMOGC ####[facility] (DEFAULT)[address] [facility] [place] [address] Platelets (Bld) [#/Vol] 377 10*3/uL Normal 150-393 [facility] Comment on above: Performed By: #### H EMOGC ####[facility] (DEFAULT)[address] [place] [address] RBC (Bld) [#/Vol] 3.25 10*6/uL Low 3.91-5.04 [facility] Comment on above: Performed By: #### H EMO ####[facility] (DEFAULT)[address] [facility] [place] [place] [address] RBC Distribution 16.3 % High 10.8-14.9 [facility] Comment on above: Performed By: #### H EMOGC ####[facility] (DEFAULT)[address] [place] [address] WBC (Bld) [#/Vol] 11.95 10*3/uL High 3.99-11.19 [facility] Comment on above: Performed By: #### H EMOGC ####[facility] (DEFAULT)[address] [place] [address] CHEM 7 (LYTES,BUN,CREA,GLUC) on 09-10-2021 Anion Gap Normal [facility] Comment on above: Result Comment: Not Calculated Performed By: #### C HM7, IPB, MGO ####[facility] (DEFAULT)[address] [place] [address] Chloride [Moles/Vol] 86 mmol/L Low 98-108 [facility] Comment on above: Performed By: #### C HM7, IPB, MGO ####[facility] (DEFAULT)[address] [place] [address] CO2 [Moles/Vol] mmol/L Critically high 22-30 [facility] Comment on above: Performed By: #### C HM7, IPB, MGO ####[facility] (DEFAULT)[address] [place] [address] Creatinine [Mass/Vol] 0.43 mg/dL Low 0.50-1.20 [facility] Comment on above: Performed By: #### C HM7, IPB, MGO ####[facility] (DEFAULT)[address] [place] [address] EST GFR, >=60 Normal >=60 [facility] Comment on above: Performed By: #### C HM7, IPB, MGO ####[facility] (DEFAULT)[address] [facility] [place] [address] EST GFR,Non >=60 Normal >=60 [facility] Comment on above: Performed By: #### C HM7, IPB, MGO ####[facility] (DEFAULT)[address] [place] [address] Glucose [Mass/Vol] 118 mg/dL High 70-99 [facility] Comment on above: Performed By: #### C HM7, IPB, MGO ####[facility] (DEFAULT)[address] [place] [address] Osmolality [Osmolality] 307 mosm/kg High 278-305 [facility] Comment on above: Performed By: #### C HM7, IPB, MGO ####[facility] (DEFAULT)[address] [facility] [place] [address] Potassium [Moles/Vol] 3.7 mmol/L Normal 3.5-5.0 [facility] Comment on above: Performed By: #### Lori HMRosario, IPB, MGO ####[facility] (DEFAULT)[address] [place] [address] Sodium [Moles/Vol] 144 mmol/L High 133-143 [facility] Comment on above: Performed By: #### Lori HMRosario, IPB, MGO ####[facility] (DEFAULT)[address] [place] [address] Urea nitrogen [Mass/Vol] 30 mg/dL High 7-22 [facility] Comment on above: Performed By: #### Lori FLOWERS, IPB, MGO ####[facility] (DEFAULT)[address] [place] [address] Urea nitrogen/Creatinine [Mass ratio] 70 mg/mg Normal [facility] Comment on above: Performed By: #### Lori HMRosario, IPB, MGO ####[facility] (DEFAULT)[address] [place] [address] MAGNESIUMon 09-10-2021 Magnesium [Mass/Vol] 1.8 mg/dL Normal 1.6-2.6 [facility] Comment on above: Performed By: #### Lori FLOWERS, IPB, MGO ####[facility] (DEFAULT)[address] [place] [address] PHOSPHATE, INORGANICon 09-10 Phosphorous 3.4 mg/dL Normal 2.2-4.6 [facility] Comment on above: Performed By: #### Lori HM7, IPB, MGO ####[facility] (DEFAULT)[address] [place] [address] XR CHEST PORTABLEon 09-10-20 21 XR CHEST PORTABLE Normal [facility] CBC,PLATELETSon 09-09-2021 Hematocrit (Bld) [Volume fraction] 27.2 % Low 34.9-44.3 [facility] Comment on above: Performed By: #### H EMOGC ####[facility] (DEFAULT)[address] [facility] [place] [address] Hemoglobin (Bld) [Mass/Vol] 8.0 g/dL Low 11.4-15.2 [facility] Comment on above: Performed By: #### H EMOGC ####[facility] (DEFAULT)[address] [facility] [place] [address] MCV (RBC) [Entitic vol] 88.3 fL Normal 79.6-97.7 [facility] Comment on above: Performed By: #### H EMOGC ####[facility] (DEFAULT)[address] [facility] [place] [address] Mean Cell Hgb 26.0 pg Normal 25.9-33.9 [facility] Comment on above: Performed By: #### H EMOGC ####[facility] (DEFAULT)[address] [place] [address], [place] [address] Mean Cell Hgb Conc 29.4 g/dL Low 31.4-35.9 [facility] Comment on above: Performed By: #### H EMOGC ####[facility] (DEFAULT)[address] [facility] [place] [address] Platelet mean volume (Bld) [Entitic vol] 11.9 fL Normal 8.5-12.2 [facility] Comment on above: Performed By: #### H EMOGC ####[facility] (DEFAULT)[address] [place] [address], [place] [address] Platelets (Bld) [#/Vol] 321 10*3/uL Normal 150-393 [facility] Comment on above: Performed By: #### H EMOGC ####[facility] (DEFAULT)[address] [facility] [place] [address] RBC (Bld) [#/Vol] 3.08 10*6/uL Low 3.91-5.04 [facility] Comment on above: Performed By: #### H EMO ####[facility] (DEFAULT)[address] [place] [address] RBC Distribution 15.7 % High 10.8-14.9 [facility] Comment on above: Performed By: #### H EMO ####[facility] (DEFAULT)[address] [place] [address] WBC (Bld) [#/Vol] 11.18 10*3/uL Normal 3.99-11.19 [facility] Comment on above: Performed By: #### H [facility] ####[facility] (DEFAULT)[address] [place] [address] CHEM 7 (LYTES,BUN,CREA,GLUC) on 09-09-2021 Anion Gap Normal [facility] Comment on above: Result Comment: Not Calculated Performed By: #### C HMRosario MGTavo, IPB ####[facility] (DEFAULT)[address] [facility] [place] [address] Chloride [Moles/Vol] 87 mmol/L Low 98-108 [facility] Comment on above: Performed By: #### C HM7 MGO, IPB ####[facility] (DEFAULT)[address] [place] [address] CO2 [Moles/Vol] mmol/L Critically high 22-30 [facility] Comment on above: Performed By: #### C HM7 MGO, IPB ####[facility] (DEFAULT)[address] [place] [address] Creatinine [Mass/Vol] 0.33 mg/dL Low 0.50-1.20 [facility] Comment on above: Performed By: #### C HM7, MGO, IPB ####[facility] (DEFAULT)[address] [place] [address] EST GFR, >=60 Normal >=60 [facility] Comment on above: Performed By: #### C HM7, MGO, IPB ####[facility] (DEFAULT)[address] [place] [address] EST GFR,Non >=60 Normal >=60 [facility] Comment on above: Performed By: #### C HM7, MGO, IPB ####[facility] (DEFAULT)[address] [place] [address] Glucose [Mass/Vol] 156 mg/dL High 70-99 [facility] Comment on above: Performed By: #### C HM7, MGO, IPB ####[facility] (DEFAULT)[address] [place] [address] Osmolality [Osmolality] 304 mosm/kg Normal 278-305 [facility] Comment on above: Performed By: #### C HM7, MGO, IPB ####[facility] (DEFAULT)[address] [place] [address] Potassium [Moles/Vol] 3.6 mmol/L Normal 3.5-5.0 [facility] Comment on above: Performed By: #### C HM7, MGO, IPB ####[facility] (DEFAULT)[address] [place] [address] Sodium [Moles/Vol] 141 mmol/L Normal 133-143 [facility] Comment on above: Performed By: #### C HM7, MGO, IPB ####[facility] (DEFAULT)[address] [place] [address] Urea nitrogen [Mass/Vol] 30 mg/dL High 7-22 [facility] Comment on above: Performed By: #### C HM7, MGO, IPB ####[facility] (DEFAULT)[address] [place] [address] Urea nitrogen/Creatinine [Mass ratio] 91 mg/mg Normal [facility] Comment on above: Performed By: #### C HM7 MGO, IPB ####[facility] (DEFAULT)[address] [place] [address] MAGNESIUMon 09-09-2021 Magnesium [Mass/Vol] 1.8 mg/dL Normal 1.6-2.6 [facility] Comment on above: Performed By: #### C HM7 MGO, IPB ####[facility] (DEFAULT)[address] [place] [address] PHOSPHATE, INORGANICon 09-09 Phosphorous 3.6 mg/dL Normal 2.2-4.6 [facility] Comment on above: Performed By: #### C HM7 MGO, IPB ####[facility] (DEFAULT)[address] [place] [address] CBC,PLATELETSon 09-08-2021 Hematocrit (Bld) [Volume fraction] 28.6 % Low 34.9-44.3 [facility] Comment on above: Performed By: #### H EMOGC ####[facility] (DEFAULT)[address] [facility] [place] [address] Hemoglobin (Bld) [Mass/Vol] 8.7 g/dL Low 11.4-15.2 [facility] Comment on above: Performed By: #### H EMOGC ####[facility] (DEFAULT)[address] [place] [address] MCV (RBC) [Entitic vol] 86.7 fL Normal 79.6-97.7 [facility] Comment on above: Performed By: #### H EMOGC ####[facility] (DEFAULT)[address] [place] [address] Mean Cell Hgb 26.4 pg Normal 25.9-33.9 [facility] Comment on above: Performed By: #### H EMOGC ####[facility] (DEFAULT)[address] [place] [address] Mean Cell Hgb Conc 30.4 g/dL Low 31.4-35.9 [facility] Comment on above: Performed By: #### H EMOGC ####[facility] (DEFAULT)[address] [place] [address] Platelet mean volume (Bld) [Entitic vol] 11.3 fL Normal 8.5-12.2 [facility] Comment on above: Performed By: #### H EMOGC ####[facility] (DEFAULT)[address] [place] [address] Platelets (Bld) [#/Vol] 333 10*3/uL Normal 150-393 [facility] Comment on above: Performed By: #### H EMOGC ####[facility] (DEFAULT)[address] [facility] [place] [address] RBC (Bld) [#/Vol] 3.30 10*6/uL Low 3.91-5.04 [facility] Comment on above: Performed By: #### H EMO ####[facility] (DEFAULT)[address] [facility] [place] [address] RBC Distribution 15.8 % High 10.8-14.9 [facility] Comment on above: Performed By: #### H EMOGC ####[facility] (DEFAULT)[address] [facility] [place] [address] WBC (Bld) [#/Vol] 19.42 10*3/uL High 3.99-11.19 [facility] Comment on above: Performed By: #### H EMOGC ####[facility] (DEFAULT)[address] [place] [address] CHEM 7 (LYTES,BUN,CREA,GLUC) on 09-08-2021 Anion gap [Moles/Vol] 10 mmol/L Normal 7-17 [facility] Comment on above: Performed By: #### I PB, MGO, CHM7 ####[facility] (DEFAULT)[address] [place] [address] Chloride [Moles/Vol] 90 mmol/L Low 98-108 [facility] Comment on above: Performed By: #### I PB, MGO, CHM7 ####[facility] (DEFAULT)[address] [place] [address] CO2 [Moles/Vol] 43 mmol/L Critically high 22-30 [facility] Comment on above: Performed By: #### I PB, MGO, CHM7 ####[facility] (DEFAULT)[address] [place] [address] Creatinine [Mass/Vol] 0.35 mg/dL Low 0.50-1.20 [facility] Comment on above: Performed By: #### I PB, MGO, CHM7 ####[facility] (DEFAULT)[address] [facility] [place] [address] EST GFR, >=60 Normal >=60 [facility] Comment on above: Performed By: #### I PB, MGO, CHM7 ####[facility] (DEFAULT)[address] [place] [address] EST GFR,Non >=60 Normal >=60 [facility] Comment on above: Performed By: #### I PB, MGO, CHM7 ####[facility] (DEFAULT)[address] [place] [address] Glucose [Mass/Vol] 160 mg/dL High 70-99 [facility] Comment on above: Performed By: #### I PB, MGO, CHM7 ####[facility] (DEFAULT)[address] [facility] [place] [address] Osmolality [Osmolality] 299 mosm/kg Normal 278-305 [facility] Comment on above: Performed By: #### I PB, MGO, CHM7 ####[facility] (DEFAULT)[address] [place] [address] Potassium [Moles/Vol] 4.1 mmol/L Normal 3.5-5.0 [facility] Comment on above: Performed By: #### I PB MGO CHM7 ####[facility] (DEFAULT)[address] [place] [address] Sodium [Moles/Vol] 139 mmol/L Normal 133-143 [facility] Comment on above: Performed By: #### I PB MGO CHM7 ####[facility] (DEFAULT)[address] [place] [address] Urea nitrogen [Mass/Vol] 24 mg/dL High 7-22 [facility] Comment on above: Performed By: #### I PB MGO CHM7 ####[facility] (DEFAULT)[address] [place] [address] Urea nitrogen/Creatinine [Mass ratio] 69 mg/mg Normal [facility] Comment on above: Performed By: #### I PB MGO CHM7 ####[facility] (DEFAULT)[address] [place] [address] MAGNESIUMon 09-08-2021 Magnesium [Mass/Vol] 1.8 mg/dL Normal 1.6-2.6 [facility] Comment on above: Performed By: #### I PB MGO CHM7 ####[facility] (DEFAULT)[address] [facility] [place] [address] PHOSPHATE, INORGANICon 09-08 Phosphorous 4.6 mg/dL Normal 2.2-4.6 [facility] Comment on above: Performed By: #### I PB MGO CHM7 ####[facility] (DEFAULT)[address] [place] [address] TOBRAMYCIN LEVEL, EXTENDED I NTERVALon 09-08-2021 Tobramycin,Extended Interval 1.6 mcg/mL Normal Peak: 10.0 - 15.0 mcg/mL, Trough: <1.0 mcg/mL [facility] Comment on above: Order Comment: Pleas e draw level at specified interval after the END of the infusion Performed By: #### T OBREI ####[facility] (DEFAULT)[address] [place] [address] VANCOMYCIN LEVEL, TROUGH (HI E DRUG LEVEL)on 09-08-2021 Vancomycin, Trough 17.5 mcg/mL Normal Therapeut ic Range: 10.0-20.0 mcg/mL [facility] Comment on above: Order Comment: Draw one hour prior to 1300 dose. Hold for trough >20. Performed By: #### V ANCTR ####[facility] (DEFAULT)[address] [place] [address] BLOOD CULTUREon 09-07-2021 Bacteria identified Cx Nom (Unsp spec) NO GROWTH DAY 5 OF 5 Normal [facility] Comment on above: Order Comment: 2 Bot tles (1 Set - consists of 1 Aerobic (blue) bottle and 1 Anaerobic (purple) bottle) -1st Peripheral DrawFor syringe method draw:If able to obtain adequate sample (20 ml) inoculate anaerobic bottle firstIf inadequate sample obtained (less than 20 ml) inoculate aerobic bottle firstFor vacutainer method draw: Fill aerobic bottle first, then anaerobic Performed By: #### B LDCULT ####[facility] (DEFAULT)[address] [place] [address] Bacteria identified Cx Nom (Unsp spec) NO GROWTH DAY 5 OF 5 Normal [facility] Comment on above: Order Comment: 2 Bot tles (1 Set - consists of 1 Aerobic (blue) bottle and 1 Anaerobic (purple) bottle) -1st Peripheral DrawFor syringe method draw:If able to obtain adequate sample (20 ml) inoculate anaerobic bottle firstIf inadequate sample obtained (less than 20 ml) inoculate aerobic bottle firstFor vacutainer method draw: Fill aerobic bottle first, then anaerobic Performed By: #### B LDCULT ####[facility] (DEFAULT)[address] [place] [address] CBC,PLATELETSon 09-07-2021 Hematocrit (Bld) [Volume fraction] 29.2 % Low 34.9-44.3 [facility] Comment on above: Performed By: #### H EMOGC ####[facility] (DEFAULT)[address] [place] [address] Hemoglobin (Bld) [Mass/Vol] 8.7 g/dL Low 11.4-15.2 [facility] Comment on above: Performed By: #### H EMOGC ####[facility] (DEFAULT)[address] [place] [address] MCV (RBC) [Entitic vol] 88.0 fL Normal 79.6-97.7 [facility] Comment on above: Performed By: #### H EMOGC ####[facility] (DEFAULT)[address] [place] [address] Mean Cell Hgb 26.2 pg Normal 25.9-33.9 [facility] Comment on above: Performed By: #### H EMOGC ####[facility] (DEFAULT)[address] [facility] [place] [place] [address] Mean Cell Hgb Conc 29.8 g/dL Low 31.4-35.9 [facility] Comment on above: Performed By: #### H EMOGC ####[facility] (DEFAULT)[address] [place] [address] Platelet mean volume (Bld) [Entitic vol] 11.8 fL Normal 8.5-12.2 [facility] Comment on above: Performed By: #### H EMOGC ####[facility] (DEFAULT)[address] [place] [address] Platelets (Bld) [#/Vol] 358 10*3/uL Normal 150-393 [facility] Comment on above: Performed By: #### H EMOGC ####[facility] (DEFAULT)[address] [facility] [place] [place] [address] RBC (Bld) [#/Vol] 3.32 10*6/uL Low 3.91-5.04 [facility] Comment on above: Performed By: #### H [facility] ####[facility] (DEFAULT)[address] [place] [address] RBC Distribution 15.7 % High 10.8-14.9 [facility] Comment on above: Performed By: #### H EMO ####[facility] (DEFAULT)[address] [place] [address] WBC (Bld) [#/Vol] 7.51 10*3/uL Normal 3.99-11.19 [facility] Comment on above: Performed By: #### H [facility] ####[facility] (DEFAULT)[address] [place] [address] CHEM 7 (LYTES,BUN,CREA,GLUC) on 09-07-2021 Anion gap [Moles/Vol] 13 mmol/L Normal 7-17 [facility] Comment on above: Performed By: #### M GO IPB, CHM7 ####[facility] (DEFAULT)[address] [place] [address] Chloride [Moles/Vol] 92 mmol/L Low 98-108 [facility] Comment on above: Performed By: #### M GO IPB, CHM7 ####[facility] (DEFAULT)[address] [place] [address] CO2 [Moles/Vol] 38 mmol/L High 22-30 [facility] Comment on above: Performed By: #### M GO IPB, CHM7 ####[facility] (DEFAULT)[address] [place] [address] Creatinine [Mass/Vol] 0.27 mg/dL Low 0.50-1.20 [facility] Comment on above: Performed By: #### M GO, IPB, CHM7 ####[facility] (DEFAULT)[address] [place] [address] EST GFR, >=60 Normal >=60 [facility] Comment on above: Performed By: #### BAR YAO, CHM7 ####[facility] (DEFAULT)[address] [place] [address] EST GFR,Non >=60 Normal >=60 [facility] Comment on above: Performed By: #### BAR YAO, CHM7 ####[facility] (DEFAULT)[address] [place] [address] Glucose [Mass/Vol] 112 mg/dL High 70-99 [facility] Comment on above: Performed By: #### BAR YAO, CHM7 ####[facility] (DEFAULT)[address] [place] [address] Osmolality [Osmolality] 297 mosm/kg Normal 278-305 [facility] Comment on above: Performed By: #### BAR YAO, CHM7 ####[facility] (DEFAULT)[address] [place] [address] Potassium [Moles/Vol] 3.3 mmol/L Low 3.5-5.0 [facility] Comment on above: Performed By: #### BAR YAO, CHM7 ####[facility] (DEFAULT)[address] [place] [address] Sodium [Moles/Vol] 140 mmol/L Normal 133-143 [facility] Comment on above: Performed By: #### BAR YAO, CHM7 ####[facility] (DEFAULT)[address] [place] [address] Urea nitrogen [Mass/Vol] 25 mg/dL High 7-22 [facility] Comment on above: Performed By: #### BAR YAO, CHM7 ####[facility] (DEFAULT)[address] [place] [address] Urea nitrogen/Creatinine [Mass ratio] 93 mg/mg Normal [facility] Comment on above: Performed By: #### M GO, IPB, CHM7 ####[facility] (DEFAULT)[address] [place] [address], [place] [address] LACTATE, BLOODon 09-07-2021 Lactate, Blood 1.2 mmol/L Normal 0.5-1.6 [facility] Comment on above: Performed By: #### L ACT ####[facility] (DEFAULT)[address] [place] [address], [place] [address] LOWER RESPIRATORY CULTURE, B ACTERIALon 09-07-2021 Amikacin [Susceptibility] <=2 Invalid Interpretation Code Susceptible <=16 ug/mL, Intermediate >16 ug/mL, Resistant >32 ug/mL [facility] Comment on above: Performed By: #### R ES ####[facility] (DEFAULT)[address] [place] [address], [place] [address] Ampicillin [Susceptibility] >=32 Resistant Susceptible <=0 ug/mL, Intermediate >0 ug/mL, Resistant >0 ug/mL [facility] Comment on above: Performed By: #### R ES ####[facility] (DEFAULT)[address] [place] [address], [place] [address] Ampicillin+Sulbactam [Susceptibility] 16 ug/mL Significant change up Susceptible <=8 ug/mL, Intermediate >8 ug/mL, Resistant >16 ug/mL [facility] Comment on above: Performed By: #### R ES ####[facility] (DEFAULT)[address] [place] [address], [place] [address] Cefepime [Susceptibility] <=1 Invalid Interpretation Code Susceptible <=2 ug/mL, Susceptible-Do se Dependent >2 ug/mL, Resistant >8 ug/mL [facility] Comment on above: Performed By: #### R ES ####[facility] (DEFAULT)[address] [place] [address] Ciprofloxacin [Susceptibility] <=0.25 Invalid Interpretation Code Susceptible <=0.25 ug/mL, Intermediate >.25 ug/mL, Resistant >.5 ug/mL [facility] Comment on above: Performed By: #### R ES ####[facility] (DEFAULT)[address] [place] [address] Ertapenem [Susceptibility] <=0.5 Invalid Interpretation Code Susceptible <=0.5 ug/mL, Intermediate >.5 ug/mL, Resistant >1 ug/mL [facility] Comment on above: Performed By: #### R ES ####[facility] (DEFAULT)[address] [place] [address] Gentamicin [Susceptibility] 8 ug/mL Significant change up Susceptible <=4 ug/mL, Intermediate >4 ug/mL, Resistant >8 ug/mL [facility] Comment on above: Performed By: #### R ES ####[facility] (DEFAULT)[address] [place] [address] Piperacillin+Tazobacta m [Susceptibility] <=4 Invalid Interpretation Code Susceptible <=16 ug/mL, Intermediate >16 ug/mL, Resistant >64 ug/mL [facility] Comment on above: Performed By: #### R ES ####[facility] (DEFAULT)[address] [place] [address] Tobramycin [Susceptibility] 8 ug/mL Significant change up Susceptible <=4 ug/mL, Intermediate >4 ug/mL, Resistant >8 ug/mL [facility] Comment on above: Performed By: #### R ES ####[facility] (DEFAULT)[address] [place] [address], [place] [address] Trimethoprim+Sulfameth oxazole [Susceptibility] >=320 Resistant Susceptible <=40 ug/mL, Resistant >40 ug/mL [facility] Comment on above: Performed By: #### R ES ####[facility] (DEFAULT)[address] [place] [address] MAGNESIUMon 09-07-2021 Magnesium [Mass/Vol] 1.9 mg/dL Normal 1.6-2.6 [facility] Comment on above: Performed By: #### M BAR ZHU CHM7 ####[facility] (DEFAULT)[address] [place] [address] PHOSPHATE, INORGANICon 09-07 Phosphorous 4.5 mg/dL Normal 2.2-4.6 [facility] Comment on above: Performed By: #### M BAR ZHU CHM7 ####[facility] (DEFAULT)[address] [place] [address] PROCALCITONINon 09-07-2021 Procalcitonin 0.52 ng/mL High <=0.50 [facility] Comment on above: Result Comment: Proc alcitonin is an FDA-approved assay to help manage antibiotic treatment in patients with sepsis/septic shock and lower respiratory tract infections. Specifically, trending procalcitonin in these situations can be used to reduce the duration of antibiotics. Please refer to the Procalcitonin Guide on the Antimicrobial Stewardship Webpage for more guidance on how to use and trend procalcitonin in various clinical settings. https://onesource.[email or web address]/departments/Pharmacy/_[email or web address]/Wo piFrame.aspx?sourcedoc=/departments/Pharmacy/Documents/GDLProca lcitonin.docx&action=default&DefaultItemOpen=1Two common cutoffs associated with bacterial infections are as follows.Respiratory tract infections: >0.25 ng/mLSepsis/septic shock: >0.5 ng/mLProcalcitonin should not be used alone as a diagnostic tool, however. All procalcitonin results should be interpreted in association with the patients clinical condition and all laboratory findings. Performed By: #### P ROCAL ####[facility] (DEFAULT)[address] [place] [address] TOBRAMYCIN LEVEL, PEAK (POST DRUG LEVEL)on 09-07-2021 Tobramycin, Peak 9.7 mcg/mL Low Therapeutic Range: 10.0-15.0 mcg/mL [facility] Comment on above: Order Comment: Pleas e draw level at specified interval AFTER end of infusion. Performed By: #### T OBRPK ####[facility] (DEFAULT)[address] [place] [address] XR CHEST PORTABLEon 09-07-20 XR CHEST PORTABLE Normal [facility] CBC,PLATELETSon 09-06-2021 Hematocrit (Bld) [Volume fraction] 29.8 % Low 34.9-44.3 [facility] Comment on above: Performed By: #### H EMOGC ####[facility] (DEFAULT)[address] [facility] [place] [place] [address] Hemoglobin (Bld) [Mass/Vol] 8.7 g/dL Low 11.4-15.2 [facility] Comment on above: Performed By: #### H EMOGC ####[facility] (DEFAULT)[address] [facility] [place] [address] MCV (RBC) [Entitic vol] 89.0 fL Normal 79.6-97.7 [facility] Comment on above: Performed By: #### H EMOGC ####[facility] (DEFAULT)[address] [place] [address] Mean Cell Hgb 26.0 pg Normal 25.9-33.9 [facility] Comment on above: Performed By: #### H EMOGC ####[facility] (DEFAULT)[address] [facility] [place] [address] Mean Cell Hgb Conc 29.2 g/dL Low 31.4-35.9 [facility] Comment on above: Performed By: #### H EMOGC ####[facility] (DEFAULT)[address] [facility] [place] [address] Platelet mean volume (Bld) [Entitic vol] 11.3 fL Normal 8.5-12.2 [facility] Comment on above: Performed By: #### H EMOGC ####[facility] (DEFAULT)[address] [place] [address] Platelets (Bld) [#/Vol] 324 10*3/uL Normal 150-393 [facility] Comment on above: Performed By: #### H EMO ####[facility] (DEFAULT)[address] [place] [address] RBC (Bld) [#/Vol] 3.35 10*6/uL Low 3.91-5.04 [facility] Comment on above: Performed By: #### H EMO ####[facility] (DEFAULT)[address] [place] [address] RBC Distribution 15.8 % High 10.8-14.9 [facility] Comment on above: Performed By: #### H EMO ####[facility] (DEFAULT)[address] [facility] [place] [address] WBC (Bld) [#/Vol] 8.47 10*3/uL Normal 3.99-11.19 [facility] Comment on above: Performed By: #### H [facility] ####[facility] (DEFAULT)[address] [facility] [place] [address] CHEM 7 (LYTES,BUN,CREA,GLUC) on 09-06-2021 Anion gap [Moles/Vol] 10 mmol/L Normal 7-17 [facility] Comment on above: Performed By: #### M BAR ZHU, CHM7 ####[facility] (DEFAULT)[address] [facility] [place] [address] Chloride [Moles/Vol] 94 mmol/L Low 98-108 [facility] Comment on above: Performed By: #### M BAR ZHU, CHM7 ####[facility] (DEFAULT)[address] [place] [address] CO2 [Moles/Vol] 40 mmol/L High 22-30 [facility] Comment on above: Performed By: #### M BAR ZHU, CHM7 ####[facility] (DEFAULT)[address] [place] [address] Creatinine [Mass/Vol] 0.33 mg/dL Low 0.50-1.20 [facility] Comment on above: Performed By: #### BAR YAO, CHM7 ####[facility] (DEFAULT)[address] [place] [address] EST GFR, >=60 Normal >=60 [facility] Comment on above: Performed By: #### BAR YAO, CHM7 ####[facility] (DEFAULT)[address] [place] [address] EST GFR,Non >=60 Normal >=60 [facility] Comment on above: Performed By: #### BAR YAO, CHM7 ####[facility] (DEFAULT)[address] [place] [address] Glucose [Mass/Vol] 127 mg/dL High 70-99 [facility] Comment on above: Performed By: #### BAR YAO, CHM7 ####[facility] (DEFAULT)[address] [place] [address] Osmolality [Osmolality] 299 mosm/kg Normal 278-305 [facility] Comment on above: Performed By: #### BAR YAO, CHM7 ####[facility] (DEFAULT)[address] [place] [address] Potassium [Moles/Vol] 3.2 mmol/L Low 3.5-5.0 [facility] Comment on above: Performed By: #### BAR YAO, CHM7 ####[facility] (DEFAULT)[address] [place] [address] Sodium [Moles/Vol] 141 mmol/L Normal 133-143 [facility] Comment on above: Performed By: #### BAR YAO, CHM7 ####[facility] (DEFAULT)[address] [place] [address] Urea nitrogen [Mass/Vol] 25 mg/dL High 7-22 [facility] Comment on above: Performed By: #### BAR YAO, CHSukhjinder7 ####[facility] (DEFAULT)[address] [place] [address] Urea nitrogen/Creatinine [Mass ratio] 76 mg/mg Normal [facility] Comment on above: Performed By: #### BAR YAO, SCOTT ####[facility] (DEFAULT)[address] [place] [address] MAGNESIUMon 09-06-2021 Magnesium [Mass/Vol] 1.8 mg/dL Normal 1.6-2.6 [facility] Comment on above: Performed By: #### BAR YAO CHM7 ####[facility] (DEFAULT)[address] [place] [address] PHOSPHATE, INORGANICon 09-06 Phosphorous 3.9 mg/dL Normal 2.2-4.6 [facility] Comment on above: Performed By: #### BAR YAO, GAURAV7 ####[facility] (DEFAULT)[address] [place] [address] ANTI XA LMWH (ENOXAPARIN),*E XACT TIME REQUIRED* 4 HR Sourav 09-05-2021 Anti Xa LMWH (Enoxaparin) 4 Hr Post 0.93 Anti-Xa IU/mL Normal 0.60-1.00 [facility] Comment on above: Order Comment: Draw 4 hours after enoxaparin dose Result Comment: Ther apeutic range applies to 4 hour post dose collections. Performed By: #### A XLMPK ####[facility] (DEFAULT)[address] [place] [address] CBC,PLATELETSon 09-05-2021 Hematocrit (Bld) [Volume fraction] 28.1 % Low 34.9-44.3 [facility] Comment on above: Performed By: #### H EMOGC ####[facility] (DEFAULT)[address] [facility] [place] [address] Hemoglobin (Bld) [Mass/Vol] 8.3 g/dL Low 11.4-15.2 [facility] Comment on above: Performed By: #### H EMOGC ####[facility] (DEFAULT)[address] [facility] [place] [address] MCV (RBC) [Entitic vol] 88.6 fL Normal 79.6-97.7 [facility] Comment on above: Performed By: #### H EMOGC ####[facility] (DEFAULT)[address] [facility] [place] [address] Mean Cell Hgb 26.2 pg Normal 25.9-33.9 [facility] Comment on above: Performed By: #### H EMOGC ####[facility] (DEFAULT)[address] [facility] [place] [address] Mean Cell Hgb Conc 29.5 g/dL Low 31.4-35.9 [facility] Comment on above: Performed By: #### H EMOGC ####[facility] (DEFAULT)[address] [facility] [place] [address] Platelet mean volume (Bld) [Entitic vol] 11.7 fL Normal 8.5-12.2 [facility] Comment on above: Performed By: #### H EMOGC ####[facility] (DEFAULT)[address] [place], [place] [address], [place] [address] Platelets (Bld) [#/Vol] 333 10*3/uL Normal 150-393 [facility] Comment on above: Performed By: #### H EMOGC ####[facility] (DEFAULT)[address] [facility] [place] [address] RBC (Bld) [#/Vol] 3.17 10*6/uL Low 3.91-5.04 [facility] Comment on above: Performed By: #### H [facility] ####[facility] (DEFAULT)[address] [place] [address] RBC Distribution 15.5 % High 10.8-14.9 [facility] Comment on above: Performed By: #### H EMO ####[facility] (DEFAULT)[address] [facility] [place] [address] WBC (Bld) [#/Vol] 9.22 10*3/uL Normal 3.99-11.19 [facility] Comment on above: Performed By: #### H [facility] ####[facility] (DEFAULT)[address] [place] [address] CHEM 7 (LYTES,BUN,CREA,GLUC) on 09-05-2021 Anion gap [Moles/Vol] 12 mmol/L Normal 7-17 [facility] Comment on above: Performed By: #### M BAR ZHU, CHM7 ####[facility] (DEFAULT)[address] [place] [address] Chloride [Moles/Vol] 90 mmol/L Low 98-108 [facility] Comment on above: Performed By: #### M BAR ZHU, CHM7 ####[facility] (DEFAULT)[address] [place] [address] CO2 [Moles/Vol] 42 mmol/L Critically high 22-30 [facility] Comment on above: Performed By: #### M BAR ZHU, CHM7 ####[facility] (DEFAULT)[address] [place] [address] Creatinine [Mass/Vol] 0.38 mg/dL Low 0.50-1.20 [facility] Comment on above: Performed By: #### M BAR ZHU, CHM7 ####[facility] (DEFAULT)[address] [facility] [place] [address] EST GFR, >=60 Normal >=60 [facility] Comment on above: Performed By: #### BAR YAO, CHM7 ####[facility] (DEFAULT)[address] [place] [address] EST GFR,Non >=60 Normal >=60 [facility] Comment on above: Performed By: #### BAR YAO, CHM7 ####[facility] (DEFAULT)[address] [place] [address] Glucose [Mass/Vol] 109 mg/dL High 70-99 [facility] Comment on above: Performed By: #### BAR YAO, CHM7 ####[facility] (DEFAULT)[address] [place] [address] Osmolality [Osmolality] 298 mosm/kg Normal 278-305 [facility] Comment on above: Performed By: #### BAR YAO, CHM7 ####[facility] (DEFAULT)[address] [place] [address] Potassium [Moles/Vol] 3.0 mmol/L Low 3.5-5.0 [facility] Comment on above: Performed By: #### BAR YAO, CHM7 ####[facility] (DEFAULT)[address] [place] [address] Sodium [Moles/Vol] 141 mmol/L Normal 133-143 [facility] Comment on above: Performed By: #### BAR YAO, CHM7 ####[facility] (DEFAULT)[address] [place] [address] Urea nitrogen [Mass/Vol] 25 mg/dL High 7-22 [facility] Comment on above: Performed By: #### BAR YAO, CHM7 ####[facility] (DEFAULT)[address] [place] [address] Urea nitrogen/Creatinine [Mass ratio] 66 mg/mg Normal [facility] Comment on above: Performed By: #### BAR YAO, CHM7 ####[facility] (DEFAULT)[address] [facility] [place] [address] MAGNESIUMon 09-05-2021 Magnesium [Mass/Vol] 2.0 mg/dL Normal 1.6-2.6 [facility] Comment on above: Performed By: #### BAR YAO, GAURAV7 ####[facility] (DEFAULT)[address] [place] [address], [place] [address] PHOSPHATE, INORGANICon 09-05 Phosphorous 4.1 mg/dL Normal 2.2-4.6 [facility] Comment on above: Performed By: #### BAR YAO, GAURAV7 ####[facility] (DEFAULT)[address] [place] [address] POTASSIUMon 09-05-2021 Potassium [Moles/Vol] 3.5 mmol/L Normal 3.5-5.0 [facility] Comment on above: Performed By: #### K KO ####[facility] (DEFAULT)[address] [place] [address] XR CHEST PORTABLEon 09-05-20 21 XR CHEST PORTABLE Normal [facility] CBC,PLATELETSon 09-04-2021 Hematocrit (Bld) [Volume fraction] 30.2 % Low 34.9-44.3 [facility] Comment on above: Performed By: #### H EMO ####[facility] (DEFAULT)[address] [place] [address], [place] [address] Hemoglobin (Bld) [Mass/Vol] 8.8 g/dL Low 11.4-15.2 [facility] Comment on above: Performed By: #### H EMOGC ####[facility] (DEFAULT)[address] [place] [address] MCV (RBC) [Entitic vol] 88.8 fL Normal 79.6-97.7 [facility] Comment on above: Performed By: #### H EMOGC ####[facility] (DEFAULT)[address] [place] [address] Mean Cell Hgb 25.9 pg Normal 25.9-33.9 [facility] Comment on above: Performed By: #### H EMOGC ####[facility] (DEFAULT)[address] [place] [address] Mean Cell Hgb Conc 29.1 g/dL Low 31.4-35.9 [facility] Comment on above: Performed By: #### H EMOGC ####[facility] (DEFAULT)[address] [place] [address] Platelet mean volume (Bld) [Entitic vol] 11.7 fL Normal 8.5-12.2 [facility] Comment on above: Performed By: #### H EMOGC ####[facility] (DEFAULT)[address] [facility] [place] [address] Platelets (Bld) [#/Vol] 325 10*3/uL Normal 150-393 [facility] Comment on above: Performed By: #### H EMOGC ####[facility] (DEFAULT)[address] [place] [address] RBC (Bld) [#/Vol] 3.40 10*6/uL Low 3.91-5.04 [facility] Comment on above: Performed By: #### H EMOGC ####[facility] (DEFAULT)[address] [facility] [place] [address] RBC Distribution 15.7 % High 10.8-14.9 [facility] Comment on above: Performed By: #### H EMOGC ####[facility] (DEFAULT)[address] [place] [address] WBC (Bld) [#/Vol] 9.91 10*3/uL Normal 3.99-11.19 [facility] Comment on above: Performed By: #### H EMOJM ####[facility] (DEFAULT)[address] [place] [address] CHEM 7 (LYTES,BUN,CREA,GLUC) on 09-04-2021 Anion gap [Moles/Vol] 13 mmol/L Normal 7-17 [facility] Comment on above: Performed By: #### C HM7, MGO, IPB ####[facility] (DEFAULT)[address] [place] [address] Chloride [Moles/Vol] 84 mmol/L Low 98-108 [facility] Comment on above: Performed By: #### C HM7, MGO, IPB ####[facility] (DEFAULT)[address] [place] [address] CO2 [Moles/Vol] 45 mmol/L Critically high 22-30 [facility] Comment on above: Performed By: #### C HM7, MGO, IPB ####[facility] (DEFAULT)[address] [place] [address] Creatinine [Mass/Vol] 0.37 mg/dL Low 0.50-1.20 [facility] Comment on above: Performed By: #### C HM7, MGO, IPB ####[facility] (DEFAULT)[address] [place] [address] EST GFR, >=60 Normal >=60 [facility] Comment on above: Performed By: #### C HM7, MGO, IPB ####[facility] (DEFAULT)[address] [place] [address] EST GFR,Non >=60 Normal >=60 [facility] Comment on above: Performed By: #### C HM7, MGO, IPB ####[facility] (DEFAULT)[address] [place] [address] Glucose [Mass/Vol] 106 mg/dL High 70-99 [facility] Comment on above: Performed By: #### C HMRosario MGO, IPB ####[facility] (DEFAULT)[address] [place] [address] Osmolality [Osmolality] 294 mosm/kg Normal 278-305 [facility] Comment on above: Performed By: #### Lori HM7, MGO, IPB ####[facility] (DEFAULT)[address] [place] [address] Potassium [Moles/Vol] 3.0 mmol/L Low 3.5-5.0 [facility] Comment on above: Performed By: #### Lori FLOWERS MGO, IPB ####[facility] (DEFAULT)[address] [place] [address] Sodium [Moles/Vol] 139 mmol/L Normal 133-143 [facility] Comment on above: Performed By: #### Lori HMRosario MGO, IPB ####[facility] (DEFAULT)[address] [place] [address] Urea nitrogen [Mass/Vol] 25 mg/dL High 7-22 [facility] Comment on above: Performed By: #### Lori HM7, MGO, IPB ####[facility] (DEFAULT)[address] [place] [address] Urea nitrogen/Creatinine [Mass ratio] 68 mg/mg Normal [facility] Comment on above: Performed By: #### Lori HM7, MGO, IPB ####[facility] (DEFAULT)[address] [place] [address] MAGNESIUMon 09-04-2021 Magnesium [Mass/Vol] 1.9 mg/dL Normal 1.6-2.6 [facility] Comment on above: Performed By: #### Lori HM7, MGO, IPB ####[facility] (DEFAULT)[address] [place] [address] PHOSPHATE, INORGANICon 09-04 Phosphorous 5.9 mg/dL High 2.2-4.6 [facility] Comment on above: Performed By: #### C HM7, MGO, IPB ####[facility] (DEFAULT)[address] [place] [address], [place] [address] XR CHEST PORTABLEon 09-04-20 XR CHEST PORTABLE Normal [facility] CBC,PLATELETSon 09-03-2021 Hematocrit (Bld) [Volume fraction] 29.3 % Low 34.9-44.3 [facility] Comment on above: Performed By: #### H EMOGC ####[facility] (DEFAULT)[address] [place] [address] Hemoglobin (Bld) [Mass/Vol] 8.7 g/dL Low 11.4-15.2 [facility] Comment on above: Performed By: #### H EMOGC ####[facility] (DEFAULT)[address] [place] [address] MCV (RBC) [Entitic vol] 89.9 fL Normal 79.6-97.7 [facility] Comment on above: Performed By: #### H EMOGC ####[facility] (DEFAULT)[address] [place] [address], [place] [address] Mean Cell Hgb 26.7 pg Normal 25.9-33.9 [facility] Comment on above: Performed By: #### H EMOGC ####[facility] (DEFAULT)[address] [place] [address], [place] [address] Mean Cell Hgb Conc 29.7 g/dL Low 31.4-35.9 [facility] Comment on above: Performed By: #### H EMOGC ####[facility] (DEFAULT)[address] [place] [address] Platelet mean volume (Bld) [Entitic vol] 11.7 fL Normal 8.5-12.2 [facility] Comment on above: Performed By: #### H EMOGC ####[facility] (DEFAULT)[address] [place] [address] Platelets (Bld) [#/Vol] 290 10*3/uL Normal 150-393 [facility] Comment on above: Performed By: #### H EMO ####[facility] (DEFAULT)[address] [place] [address] RBC (Bld) [#/Vol] 3.26 10*6/uL Low 3.91-5.04 [facility] Comment on above: Performed By: #### H [facility] ####[facility] (DEFAULT)[address] [facility] [place] [place] [address] RBC Distribution 15.9 % High 10.8-14.9 [facility] Comment on above: Performed By: #### H [facility] ####[facility] (DEFAULT)[address] [facility] [place] [address] WBC (Bld) [#/Vol] 9.01 10*3/uL Normal 3.99-11.19 [facility] Comment on above: Performed By: #### H [facility] ####[facility] (DEFAULT)[address] [place] [address] CHEM 7 (LYTES,BUN,CREA,GLUC) on 09-03-2021 Anion Gap Normal [facility] Comment on above: Result Comment: Not Calculated Performed By: #### M BAR ZHU, CHM7 ####[facility] (DEFAULT)[address] [facility] [place] [address] Chloride [Moles/Vol] 81 mmol/L Low 98-108 [facility] Comment on above: Performed By: #### BAR YAO, CHM7 ####[facility] (DEFAULT)[address] [facility] [place] [place] [address] CO2 [Moles/Vol] mmol/L Critically high 22-30 [facility] Comment on above: Performed By: #### BAR YAO CHM7 ####[facility] (DEFAULT)[address] [place] [address] Creatinine [Mass/Vol] 0.47 mg/dL Low 0.50-1.20 [facility] Comment on above: Performed By: #### BAR YAO, CHM7 ####[facility] (DEFAULT)[address] [place] [address] EST GFR, >=60 Normal >=60 [facility] [facility] Comment on above: Performed By: #### BAR YAO, CHM7 ####[facility] (DEFAULT)[address] [place] [address] EST GFR,Non >=60 Normal >=60 [facility] Comment on above: Performed By: #### BAR YAO, CHM7 ####[facility] (DEFAULT)[address] [facility] [place] [address] Glucose [Mass/Vol] 109 mg/dL High 70-99 [facility] Comment on above: Performed By: #### BAR YAO, CHM7 ####[facility] (DEFAULT)[address] [place] [address] Osmolality [Osmolality] 297 mosm/kg Normal 278-305 [facility] Comment on above: Performed By: #### BAR YAO, CHM7 ####[facility] (DEFAULT)[address] [place] [address] Potassium [Moles/Vol] 3.6 mmol/L Normal 3.5-5.0 [facility] Comment on above: Performed By: #### BAR YAO, CHM7 ####[facility] (DEFAULT)[address] [place] [address] Sodium [Moles/Vol] 140 mmol/L Normal 133-143 [facility] Comment on above: Performed By: #### M GO, IPB, CHM7 ####[facility] (DEFAULT)[address] [facility] [place] [address] Urea nitrogen [Mass/Vol] 26 mg/dL High 7-22 [facility] Comment on above: Performed By: #### BAR YAO CHM7 ####[facility] (DEFAULT)[address] [address] Urea nitrogen/Creatinine [Mass ratio] 55 mg/mg Normal [facility] Comment on above: Performed By: #### BAR YAO CHM7 ####[facility] (DEFAULT)[address] [facility] [place] [address] MAGNESIUMon 09-03-2021 Magnesium [Mass/Vol] 2.1 mg/dL Normal 1.6-2.6 [facility] Comment on above: Performed By: #### BAR YAO CHM7 ####[facility] (DEFAULT)[address] [place] [address] PHOSPHATE, INORGANICon 09-03 Phosphorous 5.5 mg/dL High 2.2-4.6 [facility] Comment on above: Performed By: #### BAR YAO CHM7 ####[facility] (DEFAULT)[address] [place] [address] PTTon 09-03-2021 aPTT Coag (Bld) [Time] 33.0 s Normal 24.0-34.3 [facility] Comment on above: Order Comment: Draw prior to initiation of intravenous Heparin. Performed By: #### P TT ####[facility] (DEFAULT)[address] [facility] [place] [place] [address] BLOOD CULTUREon 09-02-2021 Bacteria identified Cx Nom (Unsp spec) NO GROWTH DAY 5 OF 5 Normal [facility] Comment on above: Order Comment: 2 Bot tles (1 Set - consists of 1 Aerobic (blue) bottle and 1 Anaerobic (purple) bottle) -1st Peripheral DrawFor syringe method draw:If able to obtain adequate sample (20 ml) inoculate anaerobic bottle firstIf inadequate sample obtained (less than 20 ml) inoculate aerobic bottle firstFor vacutainer method draw: Fill aerobic bottle first, then anaerobic Performed By: #### B LDCULT ####[facility] (DEFAULT)[address] [place] [address] Bacteria identified Cx Nom (Unsp spec) NO GROWTH DAY 5 OF 5 Normal [facility] Comment on above: Order Comment: 2 Bot tles (1 Set - consists of 1 Aerobic (blue) bottle and 1 Anaerobic (purple) bottle) -1st Peripheral DrawFor syringe method draw:If able to obtain adequate sample (20 ml) inoculate anaerobic bottle firstIf inadequate sample obtained (less than 20 ml) inoculate aerobic bottle firstFor vacutainer method draw: Fill aerobic bottle first, then anaerobic Performed By: #### B LDCULT ####[facility] (DEFAULT)[address] [place] [address] CBC,PLATELETSon 09-02-2021 Hematocrit (Bld) [Volume fraction] 29.1 % Low 34.9-44.3 [facility] Comment on above: Performed By: #### H [facility] ####[facility] (DEFAULT)[address] [place] [address] Hemoglobin (Bld) [Mass/Vol] 8.4 g/dL Low 11.4-15.2 [facility] Comment on above: Performed By: #### H EMOGC ####[facility] (DEFAULT)[address] [place] [address] MCV (RBC) [Entitic vol] 90.1 fL Normal 79.6-97.7 [facility] Comment on above: Performed By: #### H EMOGC ####[facility] (DEFAULT)[address] [place] [address] Mean Cell Hgb 26.0 pg Normal 25.9-33.9 [facility] Comment on above: Performed By: #### H EMOGC ####[facility] (DEFAULT)[address] [facility] [place] [address] Mean Cell Hgb Conc 28.9 g/dL Low 31.4-35.9 [facility] Comment on above: Performed By: #### H EMOGC ####[facility] (DEFAULT)[address] [facility] [place] [address] Platelet mean volume (Bld) [Entitic vol] 11.7 fL Normal 8.5-12.2 [facility] Comment on above: Performed By: #### H EMOGC ####[facility] (DEFAULT)[address] [place] [address] Platelets (Bld) [#/Vol] 257 10*3/uL Normal 150-393 [facility] Comment on above: Performed By: #### H EMO ####[facility] (DEFAULT)[address] [place] [address] RBC (Bld) [#/Vol] 3.23 10*6/uL Low 3.91-5.04 [facility] Comment on above: Performed By: #### H EMO ####[facility] (DEFAULT)[address] [place] [address] RBC Distribution 15.8 % High 10.8-14.9 [facility] Comment on above: Performed By: #### H EMO ####[facility] (DEFAULT)[address] [place] [address] WBC (Bld) [#/Vol] 6.87 10*3/uL Normal 3.99-11.19 [facility] Comment on above: Performed By: #### H EMOGC ####[facility] (DEFAULT)[address] [place] [address] CHEM 7 (LYTES,BUN,CREA,GLUC) on 09-02-2021 Anion Gap Normal [facility] Comment on above: Result Comment: Not Calculated Performed By: #### M GO, IPB, CHM7 ####[facility] (DEFAULT)[address] [place] [address] Chloride [Moles/Vol] 85 mmol/L Low 98-108 [facility] Comment on above: Performed By: #### M BAR ZHU, CHM7 ####[facility] (DEFAULT)[address] [place] [address] CO2 [Moles/Vol] mmol/L Critically high 22-30 [facility] Comment on above: Performed By: #### M MARKO IPB, CHM7 ####[facility] (DEFAULT)[address] [place] [address] Creatinine [Mass/Vol] 0.43 mg/dL Low 0.50-1.20 [facility] Comment on above: Performed By: #### BAR YAO, CHM7 ####[facility] (DEFAULT)[address] [place] [address] EST GFR, >=60 Normal >=60 [facility] Comment on above: Performed By: #### BAR YAO, CHM7 ####[facility] (DEFAULT)[address] [place] [address] EST GFR,Non >=60 Normal >=60 [facility] Comment on above: Performed By: #### M GORDO ZHUB, CHM7 ####[facility] (DEFAULT)[address] [place] [address] Glucose [Mass/Vol] 105 mg/dL High 70-99 [facility] Comment on above: Performed By: #### M GORDO ZHUB, CHM7 ####[facility] (DEFAULT)[address] [place] [address] Osmolality [Osmolality] 299 mosm/kg Normal 278-305 [facility] Comment on above: Performed By: #### M BAR ZHU, CHM7 ####[facility] (DEFAULT)[address] [place] [address] Potassium [Moles/Vol] 3.8 mmol/L Normal 3.5-5.0 [facility] Comment on above: Performed By: #### BAR YAO, CHM7 ####[facility] (DEFAULT)[address] [place] [address] Sodium [Moles/Vol] 141 mmol/L Normal 133-143 [facility] Comment on above: Performed By: #### BAR YAO, CHM7 ####[facility] (DEFAULT)[address] [place] [address] Urea nitrogen [Mass/Vol] 24 mg/dL High 7-22 [facility] Comment on above: Performed By: #### BAR YAO, CHM7 ####[facility] (DEFAULT)[address] [place] [address] Urea nitrogen/Creatinine [Mass ratio] 56 mg/mg Normal [facility] Comment on above: Performed By: #### BAR YAO, CHM7 ####[facility] (DEFAULT)[address] [place] [address] LOWER RESPIRATORY CULTURE, B ACTERIALon 09-02-2021 Clindamycin [Susceptibility] 0.25 ug/mL Invalid Interpretation Code Susceptible <=0.5 ug/mL, Intermediate >.5 ug/mL, Resistant >2 ug/mL [facility] Comment on above: Performed By: #### R ES ####[facility] (DEFAULT)[address] [place] [address] Oxacillin [Susceptibility] by Minimum inhibitory concentration (RIKY) 0.5 ug/mL Invalid Interpretation Code Susceptible <=2 ug/mL, Resistant >2 ug/mL [facility] Comment on above: Performed By: #### R ES ####[facility] (DEFAULT)[address] [place] [address] Rifampin [Susceptibility] by Minimum inhibitory concentration (RIKY) <=0.5 Invalid Interpretation Code Susceptible <=1 ug/mL, Intermediate >1 ug/mL, Resistant >2 ug/mL [facility] Comment on above: Result Comment: Rifa mpin must never be used as monotherapy for Staphylococcal infection because of the rapid emergence of resistance. Performed By: #### R ES ####[facility] (DEFAULT)[address] [place] [address] Tetracycline [Susceptibility] <=1 Invalid Interpretation Code Susceptible <=4 ug/mL, Intermediate >4 ug/mL, Resistant >8 ug/mL [facility] Comment on above: Result Comment: Doxy cycline/minocycline S. aureus susceptibility can be inferred from the tetracycline RIKY when tetracycline susceptible Performed By: #### R ES ####U [facility] (DEFAULT)[address] [place] [address] Trimethoprim+Sulfameth oxazole [Susceptibility] <=10 Invalid Interpretation Code Susceptible <=40 ug/mL, Resistant >40 ug/mL [facility] Comment on above: Performed By: #### R ES ####[facility] (DEFAULT)[address] [place] [address] MAGNESIUMon 09-02-2021 Magnesium [Mass/Vol] 1.8 mg/dL Normal 1.6-2.6 [facility] Comment on above: Performed By: #### BAR YAO CHM7 ####[facility] (DEFAULT)[address] [place] [address] PHOSPHATE, INORGANICon 09-02 Phosphorous 5.5 mg/dL High 2.2-4.6 [facility] Comment on above: Performed By: #### BAR YAO CHM7 ####[facility] (DEFAULT)[address] [place] [address] URINALYSIS REFLEX TO CULTURE PERFORMABLEon 09-02-2021 Appearance (U) Clear Normal Clear [facility] Comment on above: Order Comment: For i ndwelling catheters, specimen collection is acceptable on catheter day 1 and 2 only. ? Performed By: #### U [id number] ####U [facility] (DEFAULT)[address] [place] [address] Bacteria ABSENT Normal ABSENT [facility] Comment on above: Order Comment: For i ndwelling catheters, specimen collection is acceptable on catheter day 1 and 2 only. ? Performed By: #### U [id number] ####[facility] (DEFAULT)[address] [place] [address] Blood Urine Negative Normal Negative [facility] Comment on above: Order Comment: For i ndwelling catheters, specimen collection is acceptable on catheter day 1 and 2 only. ? Performed By: #### U [id number] ####[facility] (DEFAULT)[address] [facility] [place] [address] Color (U) Yellow Normal Yellow [facility] Comment on above: Order Comment: For i ndwelling catheters, specimen collection is acceptable on catheter day 1 and 2 only. ? Performed By: #### U [id number] ####[facility] (DEFAULT)[address] [place] [address] Glucose Ql (U) Negative Normal Negative [facility] Comment on above: Order Comment: For i ndwelling catheters, specimen collection is acceptable on catheter day 1 and 2 only. ? Performed By: #### U [id number] ####[facility] (DEFAULT)[address] [place] [address] Ketones Ql (U) Negative Normal Negative [facility] Comment on above: Order Comment: For i ndwelling catheters, specimen collection is acceptable on catheter day 1 and 2 only. ? Performed By: #### U [id number] ####[facility] (DEFAULT)[address] [facility] [place] [place] [address] Leukocyte esterase Test strip Ql (U) Trace Abnormal Negative [facility] Comment on above: Order Comment: For i ndwelling catheters, specimen collection is acceptable on catheter day 1 and 2 only. ? Performed By: #### U [id number] ####[facility] (DEFAULT)[address] [place] [address] Nitrites Urine Negative Normal Negative [facility] Comment on above: Order Comment: For i ndwelling catheters, specimen collection is acceptable on catheter day 1 and 2 only. ? Performed By: #### U [id number] ####[facility] (DEFAULT)[address] [place] [address] pH (U) 7.5 [pH] Abnormal 5.0-7.0 [facility] Comment on above: Order Comment: For i ndwelling catheters, specimen collection is acceptable on catheter day 1 and 2 only. ? Performed By: #### U [id number] ####[facility] (DEFAULT)[address] [place], [place] [address], [place] [address] Protein Urine Negative Normal Negative [facility] Comment on above: Order Comment: For i ndwelling catheters, specimen collection is acceptable on catheter day 1 and 2 only. ? Performed By: #### U [id number] ####[facility] (DEFAULT)[address] [place] [address], [place] [address] RBC Urine 0-2 Normal 0-2 [facility] Comment on above: Order Comment: For i ndwelling catheters, specimen collection is acceptable on catheter day 1 and 2 only. ? Performed By: #### U [id number] ####[facility] (DEFAULT)[address] [place], [place] [address], [place] [address] Specific [place] Urine 1.017 Normal 1.001-1.035 [facility] Comment on above: Order Comment: For i ndwelling catheters, specimen collection is acceptable on catheter day 1 and 2 only. ? Performed By: #### U [id number] ####[facility] (DEFAULT)[address] [place] [address], [place] [address] Squamous/Epithelial Cells 1/hpf = 1+ Normal 1/hpf = 1+, 2-5/hpf = 2+, 0/hpf = 0+, ABSENT [facility] Comment on above: Order Comment: For i ndwelling catheters, specimen collection is acceptable on catheter day 1 and 2 only. ? Performed By: #### U [id number] ####[facility] (DEFAULT)[address] [place] [address] Urobilinogen Urine 1.0 E.U./dL Normal 0.2-1.0 [facility] Comment on above: Order Comment: For i ndwelling catheters, specimen collection is acceptable on catheter day 1 and 2 only. ? Performed By: #### U [id number] ####[facility] (DEFAULT)[address] [place] [address] WBC Urine 0-5 Normal 0-5 [facility] Comment on above: Order Comment: For i ndwelling catheters, specimen collection is acceptable on catheter day 1 and 2 only. ? Performed By: #### U [id number] ####[facility] (DEFAULT)[address] [place] [address] CBC,PLATELETSon 09-01-2021 Hematocrit (Bld) [Volume fraction] 26.1 % Low 34.9-44.3 [facility] Comment on above: Performed By: #### H EMOGC ####[facility] (DEFAULT)[address] [facility] [place] [address] Hemoglobin (Bld) [Mass/Vol] 7.7 g/dL Low 11.4-15.2 [facility] Comment on above: Performed By: #### H EMOGC ####[facility] (DEFAULT)[address] [facility] [place] [place] [address] MCV (RBC) [Entitic vol] 89.7 fL Normal 79.6-97.7 [facility] Comment on above: Performed By: #### H EMOGC ####[facility] (DEFAULT)[address] [facility] [place] [place] [address] Mean Cell Hgb 26.5 pg Normal 25.9-33.9 [facility] Comment on above: Performed By: #### H EMOGC ####[facility] (DEFAULT)[address] [facility] [place] [place] [address] Mean Cell Hgb Conc 29.5 g/dL Low 31.4-35.9 [facility] Comment on above: Performed By: #### H EMO ####[facility] (DEFAULT)[address] [place] [address] Platelet mean volume (Bld) [Entitic vol] 12.3 fL High 8.5-12.2 [facility] Comment on above: Performed By: #### H EMO ####[facility] (DEFAULT)[address] [facility] [place] [address] Platelets (Bld) [#/Vol] 202 10*3/uL Normal 150-393 [facility] Comment on above: Performed By: #### H EMOGC ####[facility] (DEFAULT)[address] [facility] [place] [place] [address] RBC (Bld) [#/Vol] 2.91 10*6/uL Low 3.91-5.04 [facility] Comment on above: Performed By: #### H EMO ####[facility] (DEFAULT)[address] [facility] [place] [address] RBC Distribution 15.9 % High 10.8-14.9 [facility] Comment on above: Performed By: #### H EMO ####[facility] (DEFAULT)[address] [facility] [place] [place] [address] WBC (Bld) [#/Vol] 6.41 10*3/uL Normal 3.99-11.19 [facility] Comment on above: Performed By: #### H EMOGC ####[facility] (DEFAULT)[address] [place] [address] CHEM 7 (LYTES,BUN,CREA,GLUC) on 09-01-2021 Anion Gap Normal [facility] Comment on above: Result Comment: Not Calculated Performed By: #### C HM7, IPB, MGO ####[facility] (DEFAULT)[address] [place] [address] Chloride [Moles/Vol] 90 mmol/L Low 98-108 [facility] Comment on above: Performed By: #### C HM7, IPB, MGO ####[facility] (DEFAULT)[address] [place] [address] CO2 [Moles/Vol] mmol/L Critically high 22-30 [facility] Comment on above: Performed By: #### C HM7, IPB, MGO ####[facility] (DEFAULT)[address] [place] [address] Creatinine [Mass/Vol] 0.36 mg/dL Low 0.50-1.20 [facility] Comment on above: Performed By: #### C HM7, IPB, MGO ####[facility] (DEFAULT)[address] [place] [address] EST GFR, >=60 Normal >=60 [facility] Comment on above: Performed By: #### C HM7, IPB, MGO ####[facility] (DEFAULT)[address] [place] [address] EST GFR,Non >=60 Normal >=60 [facility] Comment on above: Performed By: #### C HM7, IPB, MGO ####[facility] (DEFAULT)[address] [place] [address] Glucose [Mass/Vol] 97 mg/dL Normal 70-99 [facility] Comment on above: Performed By: #### C HM7, IPB, MGO ####[facility] (DEFAULT)[address] [place] [address] Osmolality [Osmolality] 302 mosm/kg Normal 278-305 [facility] Comment on above: Performed By: #### C HM7, IPB, MGO ####[facility] (DEFAULT)[address] [facility] [place] [place] [address] Potassium [Moles/Vol] 3.8 mmol/L Normal 3.5-5.0 [facility] Comment on above: Performed By: #### C BAR FLOWERS, MGO ####[facility] (DEFAULT)[address] [place] [address] Sodium [Moles/Vol] 143 mmol/L Normal 133-143 [facility] Comment on above: Performed By: #### Lori FLOWERS, GORDOB, MGO ####[facility] (DEFAULT)[address] [place] [address] Urea nitrogen [Mass/Vol] 25 mg/dL High 7-22 [facility] Comment on above: Performed By: #### C GORDO FLOWERSB, MGO ####[facility] (DEFAULT)[address] [place] [address] Urea nitrogen/Creatinine [Mass ratio] 69 mg/mg Normal [facility] Comment on above: Performed By: #### C LIONEL, BAR, MGO ####[facility] (DEFAULT)[address] [place] [address] IONIZED CALCIUM, INPATIENTon 09-01-2021 ICA 4.58 mg/dL Low 4.60-5.30 [facility] Comment on above: Order Comment: If io nized calcium is less than or equal to 3.0 mg/dL, recheck ionized calcium 2 hours after replacement. Performed By: #### I CA ####[facility] (DEFAULT)[address] [place] [address] MAGNESIUMon 09-01-2021 Magnesium [Mass/Vol] 2.0 mg/dL Normal 1.6-2.6 [facility] Comment on above: Performed By: #### C HMRosario, GORDOB, MGO ####[facility] (DEFAULT)[address] [place] [address] PHOSPHATE, INORGANICon 09-01 Phosphorous 4.6 mg/dL Normal 2.2-4.6 [facility] Comment on above: Performed By: #### C HM7, IPB, MGO ####[facility] (DEFAULT)[address] [place] [address] CBC,PLATELETSon 08-31-2021 Hematocrit (Bld) [Volume fraction] 27.7 % Low 34.9-44.3 [facility] Comment on above: Performed By: #### H EMOGC ####[facility] (DEFAULT)[address] [facility] [place] [place] [address] Hemoglobin (Bld) [Mass/Vol] 8.2 g/dL Low 11.4-15.2 [facility] Comment on above: Performed By: #### H EMOGC ####[facility] (DEFAULT)[address] [facility] [place] [place] [address] MCV (RBC) [Entitic vol] 90.5 fL Normal 79.6-97.7 [facility] Comment on above: Performed By: #### H EMOGC ####[facility] (DEFAULT)[address] [place] [address] Mean Cell Hgb 26.8 pg Normal 25.9-33.9 [facility] Comment on above: Performed By: #### H EMOGC ####[facility] (DEFAULT)[address] [facility] [place] [place] [address] Mean Cell Hgb Conc 29.6 g/dL Low 31.4-35.9 [facility] Comment on above: Performed By: #### H EMOGC ####[facility] (DEFAULT)[address] [facility] [place] [place] [address] Platelet mean volume (Bld) [Entitic vol] 11.9 fL Normal 8.5-12.2 [facility] Comment on above: Performed By: #### H EMOGC ####[facility] (DEFAULT)[address] [facility] [place] [place] [address] Platelets (Bld) [#/Vol] 172 10*3/uL Normal 150-393 [facility] Comment on above: Performed By: #### H [facility] ####[facility] (DEFAULT)[address] [facility] [place] [place] [address] RBC (Bld) [#/Vol] 3.06 10*6/uL Low 3.91-5.04 [facility] Comment on above: Performed By: #### H EMO ####[facility] (DEFAULT)[address] [facility] [place] [address] RBC Distribution 16.2 % High 10.8-14.9 [facility] Comment on above: Performed By: #### H [facility] ####[facility] (DEFAULT)[address] [place] [address] WBC (Bld) [#/Vol] 8.78 10*3/uL Normal 3.99-11.19 [facility] Comment on above: Performed By: #### H [facility] ####[facility] (DEFAULT)[address] [place] [address] CHEM 7 (LYTES,BUN,CREA,GLUC) on 08-31-2021 Anion gap [Moles/Vol] 11 mmol/L Normal 7-17 [facility] Comment on above: Performed By: #### I PB, MGO, CHM7 ####[facility] (DEFAULT)[address] [place] [address] Chloride [Moles/Vol] 94 mmol/L Low 98-108 [facility] Comment on above: Performed By: #### I PB, MGO, CHM7 ####[facility] (DEFAULT)[address] [place] [address] CO2 [Moles/Vol] 43 mmol/L Critically high 22-30 [facility] Comment on above: Performed By: #### I PB, MGO, CHM7 ####[facility] (DEFAULT)[address] [place] [address] Creatinine [Mass/Vol] 0.46 mg/dL Low 0.50-1.20 [facility] Comment on above: Performed By: #### I GOVIND MGO CHM7 ####[facility] (DEFAULT)[address] [place] [address] EST GFR, >=60 Normal >=60 [facility] Comment on above: Performed By: #### I GOVIND MGO CHM7 ####[facility] (DEFAULT)[address] [place] [address] EST GFR,Non >=60 Normal >=60 [facility] Comment on above: Performed By: #### Marychuy PB MGO, CHM7 ####[facility] (DEFAULT)[address] [facility] [place] [address] Glucose [Mass/Vol] 123 mg/dL High 70-99 [facility] Comment on above: Performed By: #### Marychuy PB MGO, CHM7 ####[facility] (DEFAULT)[address] [facility] [place] [address] Osmolality [Osmolality] 306 mosm/kg High 278-305 [facility] Comment on above: Performed By: #### I PB MGO, CHM7 ####[facility] (DEFAULT)[address] [facility] [place] [address] Potassium [Moles/Vol] 3.8 mmol/L Normal 3.5-5.0 [facility] Comment on above: Performed By: #### I PB, MGO, CHM7 ####[facility] (DEFAULT)[address] [facility] [place] [address] Sodium [Moles/Vol] 144 mmol/L High 133-143 [facility] Comment on above: Performed By: #### I PB, MGO, CHM7 ####[facility] (DEFAULT)[address] [place] [address] Urea nitrogen [Mass/Vol] 27 mg/dL High 7-22 [facility] Comment on above: Performed By: #### I GOVIND MGO CHM7 ####[facility] (DEFAULT)[address] [facility] [place] [address] Urea nitrogen/Creatinine [Mass ratio] 59 mg/mg Normal [facility] Comment on above: Performed By: #### I PB MGO, CHM7 ####[facility] (DEFAULT)[address] [place] [address] MAGNESIUMon 08-31-2021 Magnesium [Mass/Vol] 2.1 mg/dL Normal 1.6-2.6 [facility] Comment on above: Performed By: #### Marychuy PB MGO, CHM7 ####[facility] (DEFAULT)[address] [place] [address] PHOSPHATE, INORGANICon 08-31 Phosphorous 4.6 mg/dL Normal 2.2-4.6 [facility] Comment on above: Performed By: #### I GOVIND MGO, CHM7 ####[facility] (DEFAULT)[address] [place] [address] XR CHEST PORTABLEon 08-31-20 21 XR CHEST PORTABLE Normal [facility] CBC,PLATELETSon 08-30-2021 Hematocrit (Bld) [Volume fraction] 28.2 % Low 34.9-44.3 [facility] Comment on above: Performed By: #### H [facility] ####[facility] (DEFAULT)[address] [facility] [place] [address] Hemoglobin (Bld) [Mass/Vol] 8.3 g/dL Low 11.4-15.2 [facility] Comment on above: Performed By: #### H EMO ####[facility] (DEFAULT)[address] [place] [address] MCV (RBC) [Entitic vol] 89.5 fL Normal 79.6-97.7 [facility] Comment on above: Performed By: #### H EMOGC ####[facility] (DEFAULT)[address] [place] [address] Mean Cell Hgb 26.3 pg Normal 25.9-33.9 [facility] Comment on above: Performed By: #### H EMOGC ####[facility] (DEFAULT)[address] [place] [address] Mean Cell Hgb Conc 29.4 g/dL Low 31.4-35.9 [facility] Comment on above: Performed By: #### H EMOGC ####[facility] (DEFAULT)[address] [place] [address] Platelet mean volume (Bld) [Entitic vol] 11.9 fL Normal 8.5-12.2 [facility] Comment on above: Performed By: #### H EMOGC ####[facility] (DEFAULT)[address] [place] [address] Platelets (Bld) [#/Vol] 160 10*3/uL Normal 150-393 [facility] Comment on above: Performed By: #### H EMOGC ####[facility] (DEFAULT)[address] [place] [address] RBC (Bld) [#/Vol] 3.15 10*6/uL Low 3.91-5.04 [facility] Comment on above: Performed By: #### H EMOGC ####[facility] (DEFAULT)[address] [place] [address] RBC Distribution 15.6 % High 10.8-14.9 [facility] Comment on above: Performed By: #### H EMOGC ####[facility] (DEFAULT)[address] [place] [address] WBC (Bld) [#/Vol] 8.12 10*3/uL Normal 3.99-11.19 [facility] Comment on above: Performed By: #### H [facility] ####[facility] (DEFAULT)[address] [place] [address] CHEM 7 (LYTES,BUN,CREA,GLUC) on 08-30-2021 Anion gap [Moles/Vol] 13 mmol/L Normal 7-17 [facility] Comment on above: Performed By: #### C HM7, IPB, MGO ####[facility] (DEFAULT)[address] [place] [address] Chloride [Moles/Vol] 97 mmol/L Low 98-108 [facility] Comment on above: Performed By: #### C HM7, IPB, MGO ####[facility] (DEFAULT)[address] [place] [address] CO2 [Moles/Vol] 40 mmol/L High 22-30 [facility] Comment on above: Performed By: #### C HM7, IPB, MGO ####[facility] (DEFAULT)[address] [place] [address] Creatinine [Mass/Vol] 0.50 mg/dL Normal 0.50-1.20 [facility] Comment on above: Performed By: #### C HM7, IPB, MGO ####[facility] (DEFAULT)[address] [place] [address] EST GFR, >=60 Normal >=60 [facility] Comment on above: Performed By: #### C HM7, IPB, MGO ####[facility] (DEFAULT)[address] [place] [address] EST GFR,Non >=60 Normal >=60 [facility] Comment on above: Performed By: #### C HM7, IPB, MGO ####[facility] (DEFAULT)[address] [place] [address] Glucose [Mass/Vol] 111 mg/dL High 70-99 [facility] Comment on above: Performed By: #### C HM7, IPB, MGO ####[facility] (DEFAULT)[address] [place] [address] Osmolality [Osmolality] 308 mosm/kg High 278-305 [facility] Comment on above: Performed By: #### Lori HM7, IPB, MGO ####[facility] (DEFAULT)[address] [place] [address] Potassium [Moles/Vol] 3.7 mmol/L Normal 3.5-5.0 [facility] Comment on above: Performed By: #### C HM7, IPB, MGO ####[facility] (DEFAULT)[address] [place] [address] Sodium [Moles/Vol] 146 mmol/L High 133-143 [facility] Comment on above: Performed By: #### Lori HM7, IPB, MGO ####[facility] (DEFAULT)[address] [place] [address] Urea nitrogen [Mass/Vol] 25 mg/dL High 7-22 [facility] Comment on above: Performed By: #### Lori HM7, IPB, MGO ####[facility] (DEFAULT)[address] [place] [address] Urea nitrogen/Creatinine [Mass ratio] 50 mg/mg Normal [facility] Comment on above: Performed By: #### C HM7, IPB, MGO ####[facility] (DEFAULT)[address] [place] [address] MAGNESIUMon 08-30-2021 Magnesium [Mass/Vol] 1.8 mg/dL Normal 1.6-2.6 [facility] Comment on above: Performed By: #### Lori HM7, IPB, MGO ####[facility] (DEFAULT)[address] [place] [address] PHOSPHATE, INORGANICon 08-30 Phosphorous 5.0 mg/dL High 2.2-4.6 [facility] Comment on above: Performed By: #### C HM7, IPB, MGO ####[facility] (DEFAULT)[address] [place] [address] XR CHEST PORTABLEon 08-30-20 XR CHEST PORTABLE Normal [facility] ALBUMINon 08-29-2021 Albumin [Mass/Vol] 3.1 g/dL Low 3.5-5.0 [facility] Comment on above: Order Comment: While receiving scheduled albumin. Performed By: #### A LB, IPB, CHM7, MGO ####[facility] (DEFAULT)[address] [place] [address] CBC,PLATELETSon 08-29-2021 Hematocrit (Bld) [Volume fraction] 21.7 % Low 34.9-44.3 [facility] Comment on above: Performed By: #### H [facility] ####[facility] (DEFAULT)[address] [place] [address] Hemoglobin (Bld) [Mass/Vol] 6.2 g/dL Critically low 11.4-15.2 [facility] Comment on above: Result Comment: This result has been called to MARITA CHRISTIANSON RN by Winnie Dyer on 08 29 2021 at 0055, and has been read back. Performed By: #### H [facility] ####[facility] (DEFAULT)[address] [place] [address] MCV (RBC) [Entitic vol] 90.4 fL Normal 79.6-97.7 [facility] Comment on above: Performed By: #### H [facility] ####[facility] (DEFAULT)[address] [place] [address] Mean Cell Hgb 25.8 pg Low 25.9-33.9 [facility] Comment on above: Performed By: #### H [facility] ####[facility] (DEFAULT)[address] [place] [address] Mean Cell Hgb Conc 28.6 g/dL Low 31.4-35.9 [facility] Comment on above: Performed By: #### H EMOGC ####[facility] (DEFAULT)[address] [place] [address] Platelet mean volume (Bld) [Entitic vol] 11.7 fL Normal 8.5-12.2 [facility] Comment on above: Performed By: #### H EMOGC ####[facility] (DEFAULT)[address] [place] [address] Platelets (Bld) [#/Vol] 133 10*3/uL Low 150-393 [facility] Comment on above: Performed By: #### H EMOGC ####[facility] (DEFAULT)[address] [facility] [place] [address] RBC (Bld) [#/Vol] 2.40 10*6/uL Low 3.91-5.04 [facility] Comment on above: Performed By: #### H EMOGC ####[facility] (DEFAULT)[address] [place] [address] RBC Distribution 14.5 % Normal 10.8-14.9 [facility] Comment on above: Performed By: #### H EMOGC ####[facility] (DEFAULT)[address] [facility] [place] [address] WBC (Bld) [#/Vol] 6.54 10*3/uL Normal 3.99-11.19 [facility] Comment on above: Performed By: #### H EMOGC ####[facility] (DEFAULT)[address] [place] [address] CHEM 7 (LYTES,BUN,CREA,GLUC) on 08-29-2021 Anion gap [Moles/Vol] 10 mmol/L Normal 7-17 [facility] Comment on above: Performed By: #### A LB, IPB, CHM7, MGO ####[facility] (DEFAULT)[address] [place] [address] Chloride [Moles/Vol] 103 mmol/L Normal 98-108 [facility] Comment on above: Performed By: #### A LB, IPB, CHM7, MGO ####[facility] (DEFAULT)[address] [place] [address] CO2 [Moles/Vol] 36 mmol/L High 22-30 [facility] Comment on above: Performed By: #### A LB, IPB, CHM7, MGO ####[facility] (DEFAULT)[address] [place] [address] Creatinine [Mass/Vol] 0.49 mg/dL Low 0.50-1.20 [facility] Comment on above: Performed By: #### A LB, IPB, CHM7, MGO ####[facility] (DEFAULT)[address] [place] [address] EST GFR, >=60 Normal >=60 [facility] Comment on above: Performed By: #### A LB, IPB, CHM7, MGO ####[facility] (DEFAULT)[address] [place] [address] EST GFR,Non >=60 Normal >=60 [facility] Comment on above: Performed By: #### A LB, IPB, CHM7, MGO ####[facility] (DEFAULT)[address] [place] [address] Glucose [Mass/Vol] 112 mg/dL High 70-99 [facility] Comment on above: Performed By: #### A LB, IPB, CHM7, MGO ####[facility] (DEFAULT)[address] [place] [address] Osmolality [Osmolality] 306 mosm/kg High 278-305 [facility] Comment on above: Performed By: #### A LB, IPB, CHM7, MGO ####[facility] (DEFAULT)[address] [place] [address] Potassium [Moles/Vol] 3.7 mmol/L Normal 3.5-5.0 [facility] Comment on above: Performed By: #### A LB, IPB, CHM7, MGO ####[facility] (DEFAULT)[address] [place] [address] Sodium [Moles/Vol] 145 mmol/L High 133-143 [facility] Comment on above: Performed By: #### A LB, IPB, CHM7, MGO ####[facility] (DEFAULT)[address] [place] [address] Urea nitrogen [Mass/Vol] 23 mg/dL High 7-22 [facility] Comment on above: Performed By: #### A LB, IPB, CHM7, MGO ####[facility] (DEFAULT)[address] [place] [address] Urea nitrogen/Creatinine [Mass ratio] 47 mg/mg Normal [facility] Comment on above: Performed By: #### A LB, IPB, CHM7, MGO ####[facility] (DEFAULT)[address] [place] [address] HEMOGLOBIN & HEMATOCRITon Hematocrit (Bld) [Volume fraction] 25.7 % Low 34.9-44.3 [facility] Comment on above: Performed By: #### H H ####[facility] (DEFAULT)[address] [place] [address] Hemoglobin (Bld) [Mass/Vol] 7.9 g/dL Low 11.4-15.2 [facility] Comment on above: Performed By: #### H H ####[facility] (DEFAULT)[address] [place] [address] Hematocrit (Bld) [Volume fraction] 23.5 % Low 34.9-44.3 [facility] Comment on above: Order Comment: After finshing transfusion can recheck h/h Performed By: #### H H ####[facility] (DEFAULT)[address] [facility] [place] [address] Hemoglobin (Bld) [Mass/Vol] 6.9 g/dL Critically low 11.4-15.2 [facility] Comment on above: Order Comment: After finshing transfusion can recheck h/h Result Comment: This result has been called to JAILYN CARRASCO RN by Greta Abreu on 08 29 2021 at 0641, and has been read back. Performed By: #### H H ####[facility] (DEFAULT)[address] [place] [address] Hematocrit (Bld) [Volume fraction] 21.2 % Low 34.9-44.3 [facility] Comment on above: Performed By: #### H H ####[facility] (DEFAULT)[address] [place] [address] Hemoglobin (Bld) [Mass/Vol] 6.2 g/dL Critically low 11.4-15.2 [facility] Comment on above: Result Comment: This result has been called to MARITA CHRISTIANSON RN by Winnie Dyer on 08 29 2021 at 0142, and has been read back. Performed By: #### H H ####[facility] (DEFAULT)[address] [place] [address] MAGNESIUMon 08-29-2021 Magnesium [Mass/Vol] 2.3 mg/dL Normal 1.6-2.6 [facility] Comment on above: Performed By: #### A LB, IPB, CHM7, MGO ####[facility] (DEFAULT)[address] [facility] [place] [address] PHOSPHATE, INORGANICon 08-29 Phosphorous 2.3 mg/dL Normal 2.2-4.6 [facility] Comment on above: Performed By: #### A LB, IPB, CHM7, MGO ####[facility] (DEFAULT)[address] [place] [address] PT,INR,PTTon 08-29-2021 aPTT Coag (Bld) [Time] 35.4 s High 24.0-34.3 [facility] Comment on above: Performed By: #### P TPTT ####[facility] (DEFAULT)[address] [place] [address] INR Coag (PPP) [Relative time] 1.2 {INR} High 0.9-1.1 [facility] Comment on above: Performed By: #### P TPTT ####[facility] (DEFAULT)[address] [place] [address] PT Coag (PPP) [Time] 14.6 s High 11.9-14.2 [facility] Comment on above: Performed By: #### P TPTT ####[facility] (DEFAULT)[address] [place] [address] TYPE AND SCREENon 08-29-2021 ABO/RH(D) TYPE Positive Normal [facility] Comment on above: Performed By: #### X M ####[facility] (DEFAULT)[address] [place] [address] XR ABDOMEN 1 VIEW PORTABLEon 08-29-2021 XR ABDOMEN 1 VIEW PORTABLE Normal [facility] ALBUMINon 08-28-2021 Albumin [Mass/Vol] 2.6 g/dL Low 3.5-5.0 [facility] Comment on above: Order Comment: While receiving scheduled albumin. Performed By: #### C HM7, TOBREI, MGO, IPB, ALB ####[facility] (DEFAULT)[address] [place] [address] B-TYPE NATRIURETIC PEPTIDE ( BRAIN)on 08-28-2021 Natriuretic peptide B (Bld) [Mass/Vol] 300 pg/mL High 0-100 [facility] Comment on above: Performed By: #### B ACCOUNTS EXECUTIVE ####[facility] (DEFAULT)[address] [place] [address] BLOOD CULTUREon 08-28-2021 Bacteria identified Cx Nom (Unsp spec) NO GROWTH DAY 5 OF 5 Normal [facility] Comment on above: Order Comment: 2 Bot tles (1 Set - consists of 1 Aerobic (blue) bottle and 1 Anaerobic (purple) bottle) -1st Peripheral DrawFor syringe method draw:If able to obtain adequate sample (20 ml) inoculate anaerobic bottle firstIf inadequate sample obtained (less than 20 ml) inoculate aerobic bottle firstFor vacutainer method draw: Fill aerobic bottle first, then anaerobic Performed By: #### B LDCULT ####[facility] (DEFAULT)[address] [place] [address] CBC,PLATELETSon 08-28-2021 Hematocrit (Bld) [Volume fraction] 23.9 % Low 34.9-44.3 [facility] Comment on above: Performed By: #### H [facility] ####[facility] (DEFAULT)[address] [place] [address] Hemoglobin (Bld) [Mass/Vol] 7.1 g/dL Low 11.4-15.2 [facility] Comment on above: Performed By: #### H EMOGC ####[facility] (DEFAULT)[address] [place] [address] MCV (RBC) [Entitic vol] 88.8 fL Normal 79.6-97.7 [facility] Comment on above: Performed By: #### H EMOGC ####[facility] (DEFAULT)[address] [place] [address] Mean Cell Hgb 26.4 pg Normal 25.9-33.9 [facility] Comment on above: Performed By: #### H EMOGC ####[facility] (DEFAULT)[address] [place] [address] Mean Cell Hgb Conc 29.7 g/dL Low 31.4-35.9 [facility] Comment on above: Performed By: #### H EMOGC ####[facility] (DEFAULT)[address] [facility] [place] [address] Platelet mean volume (Bld) [Entitic vol] 11.8 fL Normal 8.5-12.2 [facility] Comment on above: Performed By: #### H EMOGC ####[facility] (DEFAULT)[address] [facility] [place] [place] [address] Platelets (Bld) [#/Vol] 122 10*3/uL Low 150-393 [facility] Comment on above: Performed By: #### H EMOGC ####[facility] (DEFAULT)[address] [place] [address] RBC (Bld) [#/Vol] 2.69 10*6/uL Low 3.91-5.04 [facility] Comment on above: Performed By: #### H EMOGC ####[facility] (DEFAULT)[address] [facility] [place] [place] [address] RBC Distribution 14.2 % Normal 10.8-14.9 [facility] Comment on above: Performed By: #### H EMOGC ####[facility] (DEFAULT)[address] [place] [address] WBC (Bld) [#/Vol] 7.07 10*3/uL Normal 3.99-11.19 [facility] Comment on above: Performed By: #### H EMOGC ####[facility] (DEFAULT)[address] [place] [address], [place] [address] CHEM 7 (LYTES,BUN,CREA,GLUC) on 08-28-2021 Anion gap [Moles/Vol] 15 mmol/L Normal 7-17 [facility] Comment on above: Performed By: #### C HM7, TOBREI, MGO, IPB, ALB ####[facility] (DEFAULT)[address] [place] [address] Chloride [Moles/Vol] 101 mmol/L Normal 98-108 [facility] Comment on above: Performed By: #### C HM7, TOBREI, MGO, IPB, ALB ####[facility] (DEFAULT)[address] [place] [address] CO2 [Moles/Vol] 33 mmol/L High 22-30 [facility] Comment on above: Performed By: #### C HM7, TOBREI, MGO, IPB, ALB ####[facility] (DEFAULT)[address] [place] [address] Creatinine [Mass/Vol] 0.44 mg/dL Low 0.50-1.20 [facility] Comment on above: Performed By: #### C HM7, TOBREI, MGO, IPB, ALB ####[facility] (DEFAULT)[address] [place] [address] EST GFR, >=60 Normal >=60 [facility] Comment on above: Performed By: #### C HM7, TOBREI, MGO, IPB, ALB ####[facility] (DEFAULT)[address] [place] [address] EST GFR,Non >=60 Normal >=60 [facility] Comment on above: Performed By: #### C HM7, TOBREI, MGO, IPB, ALB ####[facility] (DEFAULT)[address] [place] [address] Glucose [Mass/Vol] 121 mg/dL High 70-99 [facility] Comment on above: Performed By: #### C HM7, TOBREI, MGO, IPB, ALB ####[facility] (DEFAULT)[address] [place] [address] Osmolality [Osmolality] 306 mosm/kg High 278-305 [facility] Comment on above: Performed By: #### C HM7, TOBREI, MGO, IPB, ALB ####[facility] (DEFAULT)[address] [place] [address] Potassium [Moles/Vol] 5.4 mmol/L High 3.5-5.0 [facility] Comment on above: Performed By: #### C HM7, TOBREI, MGO, IPB, ALB ####[facility] (DEFAULT)[address] [place] [address] Sodium [Moles/Vol] 144 mmol/L High 133-143 [facility] Comment on above: Performed By: #### C HM7, TOBREI, MGO, IPB, ALB ####[facility] (DEFAULT)[address] [place] [address] Urea nitrogen [Mass/Vol] 19 mg/dL Normal 7-22 [facility] Comment on above: Performed By: #### C HM7, TOBREI, MGO, IPB, ALB ####[facility] (DEFAULT)[address] [place] [address] Urea nitrogen/Creatinine [Mass ratio] 43 mg/mg Normal [facility] Comment on above: Performed By: #### C HM7, TOBREI, MGO, IPB, ALB ####[facility] (DEFAULT)[address] [place] [address] MAGNESIUMon 08-28-2021 Magnesium [Mass/Vol] 1.9 mg/dL Normal 1.6-2.6 [facility] Comment on above: Performed By: #### C HM7, TOBREI, MGO, IPB, ALB ####[facility] (DEFAULT)[address] [place] [address] PHOSPHATE, INORGANICon 08-28 Phosphorous 5.2 mg/dL High 2.2-4.6 [facility] Comment on above: Performed By: #### C HM7, TOBREI, MGO, IPB, ALB ####[facility] (DEFAULT)[address] [place] [address] POTASSIUMon 08-28-2021 Potassium [Moles/Vol] 4.4 mmol/L Normal 3.5-5.0 [facility] Comment on above: Performed By: #### K KO ####[facility] (DEFAULT)[address] [place] [address] TOBRAMYCIN LEVEL, EXTENDED I NTERVALon 08-28-2021 Tobramycin,Extended Interval 1.9 mcg/mL Normal Peak: 10.0 - 15.0 mcg/mL, Trough: <1.0 mcg/mL [facility] Comment on above: Order Comment: Pleas e draw level at specified interval after the INITIATION of the infusion Performed By: #### T OBREI ####[facility] (DEFAULT)[address] [place] [address] Tobramycin,Extended Interval 8.4 mcg/mL Normal Peak: 10.0 - 15.0 mcg/mL, Trough: <1.0 mcg/mL [facility] Comment on above: Order Comment: Pleas e draw level at specified interval after the END of the infusion Performed By: #### C HM7, TOBREI, MGO, IPB, ALB ####[facility] (DEFAULT)[address] [place] [address] TOBRAMYCIN LEVEL, PEAK (POST DRUG LEVEL)on 08-28-2021 Tobramycin, Peak 8.3 mcg/mL Low Therapeutic Range: 10.0-15.0 mcg/mL [facility] Comment on above: Order Comment: Pleas e draw level at specified interval AFTER end of infusion. Performed By: #### T OBRPK ####[facility] (DEFAULT)[address] [place] [address] URINALYSIS REFLEX TO CULTURE PERFORMABLEon 08-28-2021 Appearance (U) Cloudy Abnormal Clear [facility] Comment on above: Order Comment: For i ndwelling catheters, specimen collection is acceptable on catheter day 1 and 2 only. ? Performed By: #### U [id number] ####[facility] (DEFAULT)[address] [place] [address] Bacteria ABSENT Normal ABSENT [facility] Comment on above: Order Comment: For i ndwelling catheters, specimen collection is acceptable on catheter day 1 and 2 only. ? Performed By: #### U [id number] ####[facility] ([facility] [place] [address] Blood Urine Trace Abnormal Negative [facility] Comment on above: Order Comment: For i ndwelling catheters, specimen collection is acceptable on catheter day 1 and 2 only. ? Performed By: #### U [id number] ####[facility] (DEFAULT)[address] [place] [address] Color (U) Yellow Normal Yellow [facility] Comment on above: Order Comment: For i ndwelling catheters, specimen collection is acceptable on catheter day 1 and 2 only. ? Performed By: #### U [id number] ####[facility] (DEFAULT)[address] [place] [address] Glucose Ql (U) Negative Normal Negative [facility] Comment on above: Order Comment: For i ndwelling catheters, specimen collection is acceptable on catheter day 1 and 2 only. ? Performed By: #### U [id number] ####[facility] (DEFAULT)[address] [place] [address] Granular Casts 1-2 Abnormal (none) [facility] Comment on above: Order Comment: For i ndwelling catheters, specimen collection is acceptable on catheter day 1 and 2 only. ? Performed By: #### U [id number] ####[facility] (DEFAULT)[address] [place] [address] Ketones Ql (U) Trace Abnormal Negative [facility] Comment on above: Order Comment: For i ndwelling catheters, specimen collection is acceptable on catheter day 1 and 2 only. ? Performed By: #### U [id number] ####[facility] (DEFAULT)[address] [place] [address] Leukocyte esterase Test strip Ql (U) Trace Abnormal Negative [facility] Comment on above: Order Comment: For i ndwelling catheters, specimen collection is acceptable on catheter day 1 and 2 only. ? Performed By: #### U [id number] ####[facility] (DEFAULT)[address] [facility] [place] [address] Mucus Ql (Urine sed) PRESENT Normal [facility] Comment on above: Order Comment: For i ndwelling catheters, specimen collection is acceptable on catheter day 1 and 2 only. ? Performed By: #### U [id number] ####[facility] (DEFAULT)[address] [facility] [place] [address] Nitrites Urine Negative Normal Negative [facility] Comment on above: Order Comment: For i ndwelling catheters, specimen collection is acceptable on catheter day 1 and 2 only. ? Performed By: #### U [id number] ####[facility] (DEFAULT)[address] [facility] [place] [address] pH (U) 6.0 [pH] Normal 5.0-7.0 [facility] Comment on above: Order Comment: For i ndwelling catheters, specimen collection is acceptable on catheter day 1 and 2 only. ? Performed By: #### U [id number] ####[facility] (DEFAULT)[address] [place] [address] Protein Urine 100 mg/dL Abnormal Negative [facility] Comment on above: Order Comment: For i ndwelling catheters, specimen collection is acceptable on catheter day 1 and 2 only. ? Performed By: #### U [id number] ####[facility] (DEFAULT)[address] [facility] [place] [address] RBC Urine 10-20 Abnormal 0-2 [facility] Comment on above: Order Comment: For i ndwelling catheters, specimen collection is acceptable on catheter day 1 and 2 only. ? Performed By: #### U [id number] ####[facility] (DEFAULT)[address] [place] [address] Specific [place] Urine 1.025 Normal 1.001-1.035 [facility] Comment on above: Order Comment: For i ndwelling catheters, specimen collection is acceptable on catheter day 1 and 2 only. ? Performed By: #### U [id number] ####[facility] (DEFAULT)[address] [place], [place] [address], [place] [address] Squamous/Epithelial Cells 1/hpf = 1+ Normal 1/hpf = 1+, 2-5/hpf = 2+, 0/hpf = 0+, ABSENT [facility] Comment on above: Order Comment: For i ndwelling catheters, specimen collection is acceptable on catheter day 1 and 2 only. ? Performed By: #### U [id number] ####[facility] (DEFAULT)[address] [place], [place] [address], [place] [address] Urobilinogen Urine 1.0 E.U./dL Normal 0.2-1.0 [facility] Comment on above: Order Comment: For i ndwelling catheters, specimen collection is acceptable on catheter day 1 and 2 only. ? Performed By: #### U [id number] ####[facility] (DEFAULT)[address] [place] [address], [place] [address] WBC Casts 1-2 Invalid Interpretation Code 0 [facility] Comment on above: Order Comment: For i ndwelling catheters, specimen collection is acceptable on catheter day 1 and 2 only. ? Performed By: #### U [id number] ####[facility] (DEFAULT)[address] [place], [place] [address], [place] [address] WBC LM.HPF (Urine sed) [#/Area] /[HPF] Abnormal 0-5 [facility] Comment on above: Order Comment: For i ndwelling catheters, specimen collection is acceptable on catheter day 1 and 2 only. ? Performed By: #### U [id number] ####[facility] (DEFAULT)[address] [place], [place] [address], [place] [address] URINE CULTUREon 08-28-2021 Bacteria identified Cx Nom (U) No Growth Normal [facility] Comment on above: Order Comment: For i ndwelling catheters, specimen collection is acceptable on catheter day 1 and 2 only. Sorensen top vacutainer. Urine must be to the fill line to process (4mls). If minimum volume, send urine in a yellow top vacutainer tube.For indwelling catheters, specimen collection is acceptable on catheter day 1 and 2 only. ? Performed By: #### U R ####[facility] (DEFAULT)[address] [place] [address] VANCOMYCIN LEVEL, TROUGH (HI E DRUG LEVEL)on 08-28-2021 Vancomycin, Trough 19.7 mcg/mL Normal Therapeut ic Range: 10.0-20.0 mcg/mL [facility] Comment on above: Order Comment: Draw one hour prior to 1000 dose. Hold for trough >20. Performed By: #### V ANCTR ####[facility] (DEFAULT)[address] [place] [address] XR CHEST PORTABLEon 08-28-20 21 XR CHEST PORTABLE Normal [facility] BLOOD CULTUREon 08-27-2021 Bacteria identified Cx Nom (Unsp spec) NO GROWTH DAY 5 OF 5 Normal [facility] Comment on above: Order Comment: 2 Bot tles (1 Set - consists of 1 Aerobic (blue) bottle and 1 Anaerobic (purple) bottle) -1st Peripheral DrawFor syringe method draw:If able to obtain adequate sample (20 ml) inoculate anaerobic bottle firstIf inadequate sample obtained (less than 20 ml) inoculate aerobic bottle firstFor vacutainer method draw: Fill aerobic bottle first, then anaerobic Performed By: #### B LDCULT ####[facility] (DEFAULT)[address] [place] [address] CBC,PLATELETSon 08-27-2021 Hematocrit (Bld) [Volume fraction] 25.5 % Low 34.9-44.3 [facility] Comment on above: Performed By: #### H EMOGC ####[facility] (DEFAULT)[address] [place] [address] Hemoglobin (Bld) [Mass/Vol] 7.6 g/dL Low 11.4-15.2 [facility] Comment on above: Performed By: #### H EMOGC ####[facility] (DEFAULT)[address] [place] [address] MCV (RBC) [Entitic vol] 87.9 fL Normal 79.6-97.7 [facility] Comment on above: Performed By: #### H EMOGC ####[facility] (DEFAULT)[address] [place] [address] Mean Cell Hgb 26.2 pg Normal 25.9-33.9 [facility] Comment on above: Performed By: #### H EMOGC ####[facility] (DEFAULT)[address] [place] [address] Mean Cell Hgb Conc 29.8 g/dL Low 31.4-35.9 [facility] Comment on above: Performed By: #### H EMOGC ####[facility] (DEFAULT)[address] [place] [address] Platelet mean volume (Bld) [Entitic vol] 11.6 fL Normal 8.5-12.2 [facility] Comment on above: Performed By: #### H EMOGC ####[facility] (DEFAULT)[address] [place] [address] Platelets (Bld) [#/Vol] 115 10*3/uL Low 150-393 [facility] Comment on above: Performed By: #### H EMOGC ####[facility] (DEFAULT)[address] [place] [address] RBC (Bld) [#/Vol] 2.90 10*6/uL Low 3.91-5.04 [facility] Comment on above: Performed By: #### H EMOGC ####[facility] (DEFAULT)[address] [facility] [place] [address] RBC Distribution 13.4 % Normal 10.8-14.9 [facility] Comment on above: Performed By: #### H [facility] ####[facility] (DEFAULT)[address] [place] [address] WBC (Bld) [#/Vol] 6.78 10*3/uL Normal 3.99-11.19 [facility] Comment on above: Performed By: #### H [facility] ####[facility] (DEFAULT)[address] [place] [address] CHEM 7 (LYTES,BUN,CREA,GLUC) on 08-27-2021 Anion gap [Moles/Vol] 14 mmol/L Normal 7-17 [facility] Comment on above: Performed By: #### C HM7, MGO, IPB ####[facility] (DEFAULT)[address] [place] [address] Chloride [Moles/Vol] 101 mmol/L Normal 98-108 [facility] Comment on above: Performed By: #### C HM7, MGO, IPB ####[facility] (DEFAULT)[address] [place] [address], [place] [address] CO2 [Moles/Vol] 31 mmol/L High 22-30 [facility] Comment on above: Performed By: #### C HM7, MGO, IPB ####[facility] (DEFAULT)[address] [place] [address] Creatinine [Mass/Vol] 0.24 mg/dL Low 0.50-1.20 [facility] Comment on above: Performed By: #### C HM7, MGO, IPB ####[facility] (DEFAULT)[address] [place] [address] EST GFR, >=60 Normal >=60 [facility] Comment on above: Performed By: #### C HM7, MGO, IPB ####[facility] (DEFAULT)[address] [place] [address] EST GFR,Non >=60 Normal >=60 [facility] Comment on above: Performed By: #### C HM7, MGO, IPB ####[facility] (DEFAULT)[address] [place] [address] Glucose [Mass/Vol] 93 mg/dL Normal 70-99 [facility] Comment on above: Performed By: #### C HM7, MGO, IPB ####[facility] (DEFAULT)[address] [place] [address] Osmolality [Osmolality] 296 mosm/kg Normal 278-305 [facility] Comment on above: Performed By: #### Lori HM7, MGO, IPB ####[facility] (DEFAULT)[address] [place] [address] Potassium [Moles/Vol] 4.5 mmol/L Normal 3.5-5.0 [facility] Comment on above: Performed By: #### C HM7, MGO, IPB ####[facility] (DEFAULT)[address] [place] [address] Sodium [Moles/Vol] 141 mmol/L Normal 133-143 [facility] Comment on above: Performed By: #### C HM7, MGO, IPB ####[facility] (DEFAULT)[address] [place] [address] Urea nitrogen [Mass/Vol] 15 mg/dL Normal 7-22 [facility] Comment on above: Performed By: #### C HM7, MGO, IPB ####[facility] (DEFAULT)[address] [place] [address] Urea nitrogen/Creatinine [Mass ratio] 63 mg/mg Normal [facility] Comment on above: Performed By: #### C HM7, MGO, IPB ####[facility] (DEFAULT)[address] [place] [address] D-DIMER,QUANTITATIVEon 08-27 D-Dimer, High Sensitivity 4.29 mcg/mL FEU High <0.50 [facility] Comment on above: Result Comment: Spec imen integrity checked.The D-Dimer assay is intended for use in conjuction with a clinical pretest probability (PTP) assessment model to exclude pulmonary embolism (PE) and as an aid in the diagnosis of Deep Vein Thrombosis (DVT) in outpatients suspected of PE or DVT. For the assay in use at [facility] ([facility]), a cutoff of <0.50 mcg/mL has a Negative Predictive Value of 99.7% for exclusion of DVT in low and moderate PTP patients. Performed By: #### H SDDI ####[facility] (DEFAULT)[address] [place] [address] HEPATIC FUNCTION PANELon Albumin [Mass/Vol] g/dL Low 3.5-5.0 [facility] Comment on above: Performed By: #### L IPA, HFP ####[facility] (DEFAULT)[address] [place] [address] ALP [Catalytic activity/Vol] 45 U/L Normal 32-126 [facility] Comment on above: Performed By: #### L IPA, HFP ####[facility] (DEFAULT)[address] [place] [address] ALT [Catalytic activity/Vol] 12 U/L Normal 9-48 [facility] Comment on above: Performed By: #### L IPA, HFP ####[facility] (DEFAULT)[address] [place] [address] AST [Catalytic activity/Vol] 23 U/L Normal 14-40 [facility] Comment on above: Performed By: #### L IPA, HFP ####[facility] (DEFAULT)[address] [facility] [place] [address] Bilirubin [Mass/Vol] 0.3 mg/dL Normal <1.5 [facility] Comment on above: Performed By: #### L IPA, HFP ####[facility] (DEFAULT)[address] [facility] [place] [address] Bilirubin.indirect [Mass/Vol] 0.1 mg/dL Normal <0.3 [facility] Comment on above: Performed By: #### L IPA, HFP ####[facility] (DEFAULT)[address] [facility] [place] [address] Protein [Mass/Vol] 3.1 g/dL Low 6.4-8.3 [facility] Comment on above: Performed By: #### L IPA, HFP ####[facility] (DEFAULT)[address] [place] [address] HIGH SENSITIVITY TROPONIN I - SINGLE ORDERon 08-27-2021 hs-Troponin I 28 ng/L Normal <34 [facility] Comment on above: Order Comment: Acute Coronary Syndrome (ACS): Initial Evaluation and Management:[email or web address] Performed By: #### L ABHSTI1 ####[facility] (DEFAULT)[address] [place] [address] LIPASEon 08-27-2021 Lipase [Catalytic activity/Vol] 7 U/L Low 11-82 [facility] Comment on above: Performed By: #### L IPA, HFP ####[facility] (DEFAULT)[address] [place] [address] LOWER RESPIRATORY CULTURE, B ACTERIALon 08-27-2021 Clindamycin [Susceptibility] 0.25 ug/mL Invalid Interpretation Code [facility] Comment on above: Performed By: #### R ES ####[facility] (DEFAULT)[address] [place] [address] Oxacillin [Susceptibility] by Minimum inhibitory concentration (RIKY) 0.5 ug/mL Invalid Interpretation Code [facility] Comment on above: Performed By: #### R ES ####[facility] (DEFAULT)[address] [place] [address] Rifampin [Susceptibility] by Minimum inhibitory concentration (RIKY) <=0.5 Invalid Interpretation Code [facility] Comment on above: Result Comment: Rifa mpin must never be used as monotherapy for Staphylococcal infection because of the rapid emergence of resistance. Performed By: #### R ES ####[facility] (DEFAULT)[address] [facility] [place] [address] Tetracycline [Susceptibility] <=1 Invalid Interpretation Code [facility] Comment on above: Result Comment: Doxy cycline/minocycline S. aureus susceptibility can be inferred from the tetracycline RIKY when tetracycline susceptible Performed By: #### R ES ####[facility] (DEFAULT)[address] [facility] [place] [address] Trimethoprim+Sulfameth oxazole [Susceptibility] <=10 Invalid Interpretation Code [facility] Comment on above: Performed By: #### R ES ####[facility] (DEFAULT)[address] [facility] [place] [place] [address] MAGNESIUMon 08-27-2021 Magnesium [Mass/Vol] 1.9 mg/dL Normal 1.6-2.6 [facility] Comment on above: Performed By: #### C HM7, MGO, IPB ####[facility] (DEFAULT)[address] [facility] [place] [address] PHOSPHATE, INORGANICon 08-27 Phosphorous 4.2 mg/dL Normal 2.2-4.6 [facility] Comment on above: Performed By: #### C HM7, MGO, IPB ####[facility] (DEFAULT)[address] [place] [address] XR ABDOMEN 1 VIEWon 08-27-20 21 XR ABDOMEN 1 VIEW Normal [facility] XR CHEST PORTABLEon 08-27-20 21 XR CHEST PORTABLE Normal [facility] CBC,PLATELETSon 08-26-2021 Hematocrit (Bld) [Volume fraction] 25.9 % Low 34.9-44.3 [facility] Comment on above: Performed By: #### H EMOGC ####[facility] (DEFAULT)[address] [place] [address] Hemoglobin (Bld) [Mass/Vol] 7.7 g/dL Low 11.4-15.2 [facility] Comment on above: Performed By: #### H EMOGC ####[facility] (DEFAULT)[address] [place] [address] MCV (RBC) [Entitic vol] 87.5 fL Normal 79.6-97.7 [facility] Comment on above: Performed By: #### H EMOGC ####[facility] (DEFAULT)[address] [place] [address] Mean Cell Hgb 26.0 pg Normal 25.9-33.9 [facility] Comment on above: Performed By: #### H EMOGC ####[facility] (DEFAULT)[address] [facility] [place] [address] Mean Cell Hgb Conc 29.7 g/dL Low 31.4-35.9 [facility] Comment on above: Performed By: #### H EMOGC ####[facility] (DEFAULT)[address] [place] [address] Platelet mean volume (Bld) [Entitic vol] 11.4 fL Normal 8.5-12.2 [facility] Comment on above: Performed By: #### H EMOGC ####[facility] (DEFAULT)[address] [place] [address] Platelets (Bld) [#/Vol] 132 10*3/uL Low 150-393 [facility] Comment on above: Performed By: #### H EMOGC ####[facility] (DEFAULT)[address] [place] [address] RBC (Bld) [#/Vol] 2.96 10*6/uL Low 3.91-5.04 [facility] Comment on above: Performed By: #### H [facility] ####[facility] (DEFAULT)[address] [facility] [place] [place] [address] RBC Distribution 13.5 % Normal 10.8-14.9 [facility] Comment on above: Performed By: #### H [facility] ####[facility] (DEFAULT)[address] [place] [address] WBC (Bld) [#/Vol] 7.67 10*3/uL Normal 3.99-11.19 [facility] Comment on above: Performed By: #### H [facility] ####[facility] (DEFAULT)[address] [place] [address] CHEM 7 (LYTES,BUN,CREA,GLUC) on 08-26-2021 Anion gap [Moles/Vol] 12 mmol/L Normal 7-17 [facility] Comment on above: Performed By: #### C HM7, IPB, CKB, TRIG, MGO ####[facility] (DEFAULT)[address] [place] [address] Chloride [Moles/Vol] 99 mmol/L Normal 98-108 [facility] Comment on above: Performed By: #### C HM7, IPB, CKB, TRIG, MGO ####[facility] (DEFAULT)[address] [place] [address] CO2 [Moles/Vol] 34 mmol/L High 22-30 [facility] Comment on above: Performed By: #### C HM7, IPB, CKB, TRIG, MGO ####[facility] (DEFAULT)[address] [place] [address] Creatinine [Mass/Vol] 0.33 mg/dL Low 0.50-1.20 [facility] Comment on above: Performed By: #### C HM7, IPB, CKB, TRIG, MGO ####[facility] (DEFAULT)[address] [place] [address] EST GFR, >=60 Normal >=60 [facility] Comment on above: Performed By: #### C HM7, IPB, CKB, TRIG, MGO ####[facility] (DEFAULT)[address] [place] [address] EST GFR,Non >=60 Normal >=60 [facility] Comment on above: Performed By: #### C HM7, IPB, CKB, TRIG, MGO ####[facility] (DEFAULT)[address] [place] [address] Glucose [Mass/Vol] 107 mg/dL High 70-99 [facility] Comment on above: Performed By: #### C HM7, IPB, CKB, TRIG, MGO ####[facility] (DEFAULT)[address] [place] [address] Osmolality [Osmolality] 296 mosm/kg Normal 278-305 [facility] Comment on above: Performed By: #### C HM7, IPB, CKB, TRIG, MGO ####[facility] (DEFAULT)[address] [place] [address] Potassium [Moles/Vol] 4.5 mmol/L Normal 3.5-5.0 [facility] Comment on above: Performed By: #### C HM7, IPB, CKB, TRIG, MGO ####[facility] (DEFAULT)[address] [place] [address] Sodium [Moles/Vol] 140 mmol/L Normal 133-143 [facility] Comment on above: Performed By: #### C HM7, IPB, CKB, TRIG, MGO ####[facility] (DEFAULT)[address] [place] [address] Urea nitrogen [Mass/Vol] 17 mg/dL Normal 7-22 [facility] Comment on above: Performed By: #### C HM7, IPB, CKB, TRIG, MGO ####[facility] (DEFAULT)[address] [place] [address] Urea nitrogen/Creatinine [Mass ratio] 52 mg/mg Normal [facility] Comment on above: Performed By: #### C HM7, IPB, CKB, TRIG, MGO ####[facility] (DEFAULT)[address] [place] [address] CKon 08-26-2021 CK [Catalytic activity/Vol] 176 U/L Normal 30-184 [facility] Comment on above: Order Comment: While on Propofol. Performed By: #### C HM7, IPB, CKB, TRIG, MGO ####[facility] (DEFAULT)[address] [place] [address] MAGNESIUMon 08-26-2021 Magnesium [Mass/Vol] 2.2 mg/dL Normal 1.6-2.6 [facility] Comment on above: Performed By: #### C HM7, IPB, CKB, TRIG, MGO ####[facility] (DEFAULT)[address] [place] [address] PHOSPHATE, INORGANICon 08-26 Phosphorous 3.5 mg/dL Normal 2.2-4.6 [facility] Comment on above: Performed By: #### C HM7, IPB, CKB, TRIG, MGO ####[facility] (DEFAULT)[address] [place] [address] TRIGLYCERIDEon 08-26-2021 Triglyceride [Mass/Vol] 318 mg/dL High <150 [facility] Comment on above: Order Comment: While on Propofol. Result Comment: [<15 0 mg/dL: Desirable][150-199 mg/dL: Borderline][200-499 mg/dL: High][>500 mg/dL: Very High] Performed By: #### C HM7, IPB, CKB, TRIG, MGO ####[facility] (DEFAULT)[address] [place] [address] TYPE AND SCREENon 08-26-2021 ABO/RH(D) TYPE Positive Normal [facility] Comment on above: Performed By: #### X M ####[facility] (DEFAULT)[address] [place] [address] VANCOMYCIN LEVEL, TROUGH (HI E DRUG LEVEL)on 08-26-2021 Vancomycin, Trough 13.3 mcg/mL Normal Therapeut ic Range: 10.0-20.0 mcg/mL [facility] Comment on above: Order Comment: Draw one hour prior to 1000 dose. Hold for trough >20. Performed By: #### V ANCTR ####[facility] (DEFAULT)[address] [place] [address], [place] [address] XR CHEST PORTABLEon 08-26-20 XR CHEST PORTABLE Normal [facility] BLOOD CULTUREon 08-25-2021 Bacteria identified Cx Nom (Unsp spec) NO GROWTH DAY 5 OF 5 Normal [facility] Comment on above: Order Comment: 2 Bot tles (1 Set - consists of 1 Aerobic (blue) bottle and 1 Anaerobic (purple) bottle) -1st Peripheral DrawFor syringe method draw:If able to obtain adequate sample (20 ml) inoculate anaerobic bottle firstIf inadequate sample obtained (less than 20 ml) inoculate aerobic bottle firstFor vacutainer method draw: Fill aerobic bottle first, then anaerobic Performed By: #### B LDCULT ####[facility] (DEFAULT)[address] [place] [address] Bacteria identified Cx Nom (Unsp spec) NO GROWTH DAY 5 OF 5 Normal [facility] Comment on above: Order Comment: 2 Bot tles (1 Set - consists of 1 Aerobic (blue) bottle and 1 Anaerobic (purple) bottle) -1st Peripheral DrawFor syringe method draw:If able to obtain adequate sample (20 ml) inoculate anaerobic bottle firstIf inadequate sample obtained (less than 20 ml) inoculate aerobic bottle firstFor vacutainer method draw: Fill aerobic bottle first, then anaerobic Performed By: #### B LDCULT ####Sho[facility] (DEFAULT)[address] [place] [address] BODY FLUID CULTURE AND DIREC T SMEARon 08-25-2021 Clindamycin [Susceptibility] 0.25 ug/mL Invalid Interpretation Code [facility] Comment on above: Order Comment: Sinus drainage Performed By: #### B FLD ####[facility] (DEFAULT)[address] [place] [address] Oxacillin [Susceptibility] by Minimum inhibitory concentration (RIKY) <=0.25 Resistant [facility] Comment on above: Order Comment: Sinus drainage Result Comment: Cont act Isolation is NOT required for inpatients with Methicillin Resistant Staphylococcus aureus (MRSA), use standard precautions and follow the isolation policy in regards to any additional need for isolation (eg. open draining wounds). Performed By: #### B FLD ####[facility] (DEFAULT)[address] [place] [address] Rifampin [Susceptibility] by Minimum inhibitory concentration (RIKY) <=0.5 Invalid Interpretation Code [facility] Comment on above: Order Comment: Sinus drainage Result Comment: Rifa mpin must never be used as monotherapy for Staphylococcal infection because of the rapid emergence of resistance. Performed By: #### B FLD ####[facility] (DEFAULT)[address] [facility] [place] [address] Tetracycline [Susceptibility] <=1 Invalid Interpretation Code [facility] Comment on above: Order Comment: Sinus drainage Result Comment: Doxy cycline/minocycline S. aureus susceptibility can be inferred from the tetracycline RIKY when tetracycline susceptible Performed By: #### B FLD ####U [facility] (DEFAULT)[address] [place] [address] Trimethoprim+Sulfameth oxazole [Susceptibility] <=10 Invalid Interpretation Code [facility] Comment on above: Order Comment: Sinus drainage Performed By: #### B FLD ####[facility] (DEFAULT)[address] [place] [address] Vancomycin [Susceptibility] 1 ug/mL Invalid Interpretation Code [facility] Comment on above: Order Comment: Sinus drainage Performed By: #### B FLD ####[facility] (DEFAULT)[address] [facility] [place] [address] CBC,PLATELETSon 08-25-2021 Hematocrit (Bld) [Volume fraction] 29.8 % Low 34.9-44.3 [facility] Comment on above: Performed By: #### H EMOGC ####[facility] (DEFAULT)[address] [facility] [place] [place] [address] Hemoglobin (Bld) [Mass/Vol] 9.0 g/dL Low 11.4-15.2 [facility] Comment on above: Performed By: #### H EMOGC ####[facility] (DEFAULT)[address] [facility] [place] [address] MCV (RBC) [Entitic vol] 86.9 fL Normal 79.6-97.7 [facility] Comment on above: Performed By: #### H EMOGC ####[facility] (DEFAULT)[address] [place] [address] Mean Cell Hgb 26.2 pg Normal 25.9-33.9 [facility] Comment on above: Performed By: #### H EMOGC ####[facility] (DEFAULT)[address] [facility] [place] [address] Mean Cell Hgb Conc 30.2 g/dL Low 31.4-35.9 [facility] Comment on above: Performed By: #### H EMOGC ####[facility] (DEFAULT)[address] [facility] [place] [address] Platelet mean volume (Bld) [Entitic vol] 12.3 fL High 8.5-12.2 [facility] Comment on above: Performed By: #### H EMOGC ####[facility] (DEFAULT)[address] [facility] [place] [address] Platelets (Bld) [#/Vol] 146 10*3/uL Low 150-393 [facility] Comment on above: Performed By: #### H EMO ####[facility] (DEFAULT)[address] [facility] [place] [address] RBC (Bld) [#/Vol] 3.43 10*6/uL Low 3.91-5.04 [facility] Comment on above: Performed By: #### H EMO ####[facility] (DEFAULT)[address] [facility] [place] [address] RBC Distribution 13.7 % Normal 10.8-14.9 [facility] Comment on above: Performed By: #### H [facility] ####[facility] (DEFAULT)[address] [place] [address] WBC (Bld) [#/Vol] 9.29 10*3/uL Normal 3.99-11.19 [facility] Comment on above: Performed By: #### H [facility] ####[facility] (DEFAULT)[address] [place] [address] CHEM 7 (LYTES,BUN,CREA,GLUC) on 08-25-2021 Anion gap [Moles/Vol] 13 mmol/L Normal 7-17 [facility] Comment on above: Performed By: #### I PB, PROCAL, CHM7, TRIG, MGO ####[facility] (DEFAULT)[address] [facility] [place] [address] Chloride [Moles/Vol] 96 mmol/L Low 98-108 [facility] Comment on above: Performed By: #### I PB, PROCAL, CHM7, TRIG, MGO ####[facility] (DEFAULT)[address] [place] [address] CO2 [Moles/Vol] 38 mmol/L High 22-30 [facility] Comment on above: Performed By: #### I PB, PROCAL, CHM7, TRIG, MGO ####[facility] (DEFAULT)[address] [place] [address] Creatinine [Mass/Vol] 0.45 mg/dL Low 0.50-1.20 [facility] Comment on above: Performed By: #### I PB, PROCAL, CHM7, TRIG, MGO ####U [facility] (DEFAULT)[address] [place] [address] EST GFR, >=60 Normal >=60 [facility] Comment on above: Performed By: #### I PB, PROCAL, CHM7, TRIG, MGO ####[facility] (DEFAULT)[address] [facility] [place] [address] EST GFR,Non >=60 Normal >=60 [facility] Comment on above: Performed By: #### I PB, PROCAL, CHM7, TRIG, MGO ####[facility] (DEFAULT)[address] [place] [address], [place] [address] Glucose [Mass/Vol] 119 mg/dL High 70-99 [facility] Comment on above: Performed By: #### I PB, PROCAL, CHM7, TRIG, MGO ####[facility] (DEFAULT)[address] [facility] [place] [address] Osmolality [Osmolality] 303 mosm/kg Normal 278-305 [facility] Comment on above: Performed By: #### I PB, PROCAL, CHM7, TRIG, MGO ####[facility] (DEFAULT)[address] [place] [address] Potassium [Moles/Vol] 3.7 mmol/L Normal 3.5-5.0 [facility] Comment on above: Performed By: #### I PB, PROCAL, CHM7, TRIG, MGO ####[facility] (DEFAULT)[address] [facility] [place] [address] Sodium [Moles/Vol] 143 mmol/L Normal 133-143 [facility] Comment on above: Performed By: #### I PB, PROCAL, CHM7, TRIG, MGO ####[facility] (DEFAULT)[address] [place] [address] Urea nitrogen [Mass/Vol] 23 mg/dL High 7- [facility] Comment on above: Performed By: #### I PB, PROCAL, CHM7, TRIG, MGO ####[facility] (DEFAULT)[address] [place] [address] Urea nitrogen/Creatinine [Mass ratio] 51 mg/mg Normal [facility] Comment on above: Performed By: #### I PB, PROCAL, CHM7, TRIG, MGO ####[facility] (DEFAULT)[address] [place] [address] D-DIMER,QUANTITATIVEon 08-25 D-Dimer, High Sensitivity 3.68 mcg/mL FEU High <0.50 [facility] Comment on above: Result Comment: The D-Dimer assay is intended for use in conjuction with a clinical pretest probability (PTP) assessment model to exclude pulmonary embolism (PE) and as an aid in the diagnosis of Deep Vein Thrombosis (DVT) in outpatients suspected of PE or DVT. For the assay in use at [facility] ([facility]), a cutoff of <0.50 mcg/mL has a Negative Predictive Value of 99.7% for exclusion of DVT in low and moderate PTP patients. Performed By: #### H SDDI ####[facility] (DEFAULT)[address] [place] [address] LOWER RESPIRATORY CULTURE, B ACTERIALon 08-25-2021 Bacteria identified Cx Nom (Unsp spec) Normal [facility] Comment on above: Result Comment: Grow [id number] AUREUSSTAPHYLOCOCCUS AUREUSModerate Growth Staphylococcus aureusRefer to specimen [id number] on 08/22/21 for susceptibilities. Performed By: #### R ES ####[facility] (DEFAULT)[address] [place] [address] Microscopic observation Gram stain Nom (Unsp spec) Normal [facility] Comment on above: Result Comment: Neut rophils, HeavyLocal materials presentNo organisms seen Performed By: #### R ES ####[facility] (DEFAULT)[address] [facility] [place] [address] MAGNESIUMon 08-25-2021 Magnesium [Mass/Vol] 1.9 mg/dL Normal 1.6-2.6 [facility] Comment on above: Performed By: #### I PB, PROCAL, CHM7, TRIG, MGO ####[facility] (DEFAULT)[address] [facility] [place] [address] PHOSPHATE, INORGANICon 08-25 Phosphorous 4.5 mg/dL Normal 2.2-4.6 [facility] Comment on above: Performed By: #### I PB, PROCAL, CHM7, TRIG, MGO ####[facility] (DEFAULT)[address] [facility] [place] [place] [address] PROCALCITONINon 08-25-2021 Procalcitonin 0.57 ng/mL High <=0.50 [facility] Comment on above: Result Comment: Proc alcitonin is an FDA-approved assay to help manage antibiotic treatment in patients with sepsis/septic shock and lower respiratory tract infections. Specifically, trending procalcitonin in these situations can be used to reduce the duration of antibiotics. Please refer to the Procalcitonin Guide on the Antimicrobial [employer]wardship Webpage for more guidance on how to use and trend procalcitonin in various clinical settings. [email or web address]=/departments/[email or web address]/Documents/[email or web address]&action=[email or web address] common cutoffs associated with bacterial infections are as follows.Respiratory tract infections: >0.25 ng/mLSepsis/septic shock: >0.5 ng/mLProcalcitonin should not be used alone as a diagnostic tool, however. All procalcitonin results should be interpreted in association with the patients clinical condition and all laboratory findings. Performed By: #### I PB, PROCAL, CHM7, TRIG, MGO ####U [facility] (DEFAULT)[address] [place] [address] TRIGLYCERIDEon 08-25-2021 Triglyceride [Mass/Vol] 385 mg/dL High <150 [facility] Comment on above: Order Comment: While on Propofol. Result Comment: [<15 0 mg/dL: Desirable][150-199 mg/dL: Borderline][200-499 mg/dL: High][>500 mg/dL: Very High] Performed By: #### I PB, PROCAL, CHM7, TRIG, MGO ####[facility] (DEFAULT)[address] [place] [address] URINALYSISon 08-25-2021 Appearance (U) Clear Normal Clear [facility] Comment on above: Performed By: #### U RIN ####[facility] (DEFAULT)[address] [facility] [place] [address] Bacteria ABSENT Normal ABSENT [facility] Comment on above: Performed By: #### U RIN ####[facility] (DEFAULT)[address] [facility] [place] [address] Blood Urine Negative Normal Negative [facility] Comment on above: Performed By: #### U RIN ####[facility] (DEFAULT)[address] [facility] [place] [address] Color (U) Yellow Normal Yellow [facility] Comment on above: Performed By: #### U RIN ####U [facility] (DEFAULT)[address] [facility] [place] [address] Glucose Ql (U) Negative Normal Negative [facility] Comment on above: Performed By: #### U RIN ####[facility] (DEFAULT)[address] [facility] [place] [place] [address] Ketones Ql (U) Negative Normal Negative [facility] Comment on above: Performed By: #### U RIN ####[facility] (DEFAULT)[address] [place] [address] Leukocyte esterase Test strip Ql (U) Trace Abnormal Negative [facility] Comment on above: Performed By: #### U RIN ####[facility] (DEFAULT)[address] [place] [address] Nitrites Urine Negative Normal Negative [facility] Comment on above: Performed By: #### U RIN ####[facility] (DEFAULT)[address] [place] [address], [place] [address] pH (U) 6.0 [pH] Normal 5.0-7.0 [facility] Comment on above: Performed By: #### U RIN ####[facility] (DEFAULT)[address] [place] [address], [place] [address] Protein Urine 100 mg/dL Abnormal Negative [facility] Comment on above: Performed By: #### U RIN ####[facility] (DEFAULT)[address] [place] [address] RBC Urine 10-20 Abnormal 0-2 [facility] Comment on above: Performed By: #### U RIN ####[facility] (DEFAULT)[address] [place] [address] Specific [place] Urine 1.040 High 1.001-1.035 [facility] Comment on above: Performed By: #### U RIN ####[facility] (DEFAULT)[address] [place] [address] Squamous/Epithelial Cells ABSENT Normal 1/hpf = 1+, 2-5/hpf = 2+, 0/hpf = 0+, ABSENT [facility] Comment on above: Performed By: #### U RIN ####[facility] (DEFAULT)[address] [place] [address] Urobilinogen Urine 1.0 E.U./dL Normal 0.2-1.0 [facility] Comment on above: Performed By: #### U RIN ####[facility] (DEFAULT)[address] [place] [address] WBC Urine 6-9 Abnormal 0-5 [facility] Comment on above: Performed By: #### U RIN ####[facility] (DEFAULT)[address] [place] [address] XR CHEST PORTABLEon 08-25-20 XR CHEST PORTABLE Normal [facility] CBC,PLATELETSon 08-24-2021 Hematocrit (Bld) [Volume fraction] 29.5 % Low 34.9-44.3 [facility] Comment on above: Performed By: #### H EMOGC ####[facility] (DEFAULT)[address] [facility] [place] [address] Hemoglobin (Bld) [Mass/Vol] 8.9 g/dL Low 11.4-15.2 [facility] Comment on above: Performed By: #### H EMOGC ####[facility] (DEFAULT)[address] [place] [address] MCV (RBC) [Entitic vol] 87.5 fL Normal 79.6-97.7 [facility] Comment on above: Performed By: #### H EMOGC ####[facility] (DEFAULT)[address] [facility] [place] [place] [address] Mean Cell Hgb 26.4 pg Normal 25.9-33.9 [facility] Comment on above: Performed By: #### H EMOGC ####[facility] (DEFAULT)[address] [facility] [place] [place] [address] Mean Cell Hgb Conc 30.2 g/dL Low 31.4-35.9 [facility] Comment on above: Performed By: #### H EMOGC ####[facility] (DEFAULT)[address] [place] [address] Mean Platelet Volume Normal [facility] Comment on above: Result Comment: Not measured Performed By: #### H EMOGC ####[facility] (DEFAULT)[address] [place] [address] Platelets (Bld) [#/Vol] 121 10*3/uL Low 150-393 [facility] Comment on above: Performed By: #### H EMO ####[facility] (DEFAULT)[address] [place] [address] RBC (Bld) [#/Vol] 3.37 10*6/uL Low 3.91-5.04 [facility] Comment on above: Performed By: #### H EMO ####[facility] (DEFAULT)[address] [place] [address] RBC Distribution 13.6 % Normal 10.8-14.9 [facility] Comment on above: Performed By: #### H EMO ####[facility] (DEFAULT)[address] [facility] [place] [address] WBC (Bld) [#/Vol] 8.78 10*3/uL Normal 3.99-11.19 [facility] Comment on above: Performed By: #### H [facility] ####[facility] (DEFAULT)[address] [place] [address] CHEM 7 (LYTES,BUN,CREA,GLUC) on 08-24-2021 Anion gap [Moles/Vol] 12 mmol/L Normal 7-17 [facility] Comment on above: Performed By: #### I PB, MGO, CKB, CHM7, TRIG ####[facility] (DEFAULT)[address] [facility] [place] [address] Chloride [Moles/Vol] 97 mmol/L Low 98-108 [facility] Comment on above: Performed By: #### I PB, MGO, CKB, CHM7, TRIG ####[facility] (DEFAULT)[address] [place] [address] CO2 [Moles/Vol] 38 mmol/L High 22-30 [facility] Comment on above: Performed By: #### I PB, MGO, CKB, CHM7, TRIG ####[facility] (DEFAULT)[address] [place] [address] Creatinine [Mass/Vol] 0.32 mg/dL Low 0.50-1.20 [facility] Comment on above: Performed By: #### I PB, MGO, CKB, CHM7, TRIG ####[facility] (DEFAULT)[address] [place] [address] EST GFR, >=60 Normal >=60 [facility] Comment on above: Performed By: #### I PB, MGO, CKB, CHM7, TRIG ####[facility] (DEFAULT)[address] [place] [address] EST GFR,Non >=60 Normal >=60 [facility] Comment on above: Performed By: #### I PB, MGO, CKB, CHM7, TRIG ####[facility] (DEFAULT)[address] [place] [address] Glucose [Mass/Vol] 107 mg/dL High 70-99 [facility] Comment on above: Performed By: #### I PB, MGO, CKB, CHM7, TRIG ####[facility] (DEFAULT)[address] [place] [address], [place] [address] Osmolality [Osmolality] 303 mosm/kg Normal 278-305 [facility] Comment on above: Performed By: #### I PB, MGO, CKB, CHM7, TRIG ####[facility] (DEFAULT)[address] [place] [address], [place] [address] Potassium [Moles/Vol] 3.1 mmol/L Low 3.5-5.0 [facility] Comment on above: Performed By: #### I PB, MGO, CKB, CHM7, TRIG ####[facility] (DEFAULT)[address] [place] [address] Sodium [Moles/Vol] 144 mmol/L High 133-143 [facility] Comment on above: Performed By: #### I PB, MGO, CKB, CHM7, TRIG ####[facility] (DEFAULT)[address] [place] [address] Urea nitrogen [Mass/Vol] 23 mg/dL High 7-22 [facility] Comment on above: Performed By: #### I PB, MGO, CKB, CHM7, TRIG ####[facility] (DEFAULT)[address] [place] [address] Urea nitrogen/Creatinine [Mass ratio] 72 mg/mg Normal [facility] Comment on above: Performed By: #### I PB, MGO, CKB, CHM7, TRIG ####[facility] (DEFAULT)[address] [place] [address] CKon 08-24-2021 CK [Catalytic activity/Vol] 95 U/L Normal 30-184 [facility] Comment on above: Order Comment: While on Propofol. Performed By: #### I PB, MGO, CKB, CHM7, TRIG ####[facility] (DEFAULT)[address] [place] [address] MAGNESIUMon 08-24-2021 Magnesium [Mass/Vol] 2.1 mg/dL Normal 1.6-2.6 [facility] Comment on above: Performed By: #### I PB, MGO, CKB, CHM7, TRIG ####[facility] (DEFAULT)[address] [place] [address] PHOSPHATE, INORGANICon 08-24 Phosphorous 3.5 mg/dL Normal 2.2-4.6 [facility] Comment on above: Performed By: #### I PB, MGO, CKB, CHM7, TRIG ####[facility] (DEFAULT)[address] [place] [address] TRIGLYCERIDEon 08-24-2021 Triglyceride [Mass/Vol] 374 mg/dL High <150 [facility] Comment on above: Order Comment: While on Propofol. Result Comment: [<15 0 mg/dL: Desirable][150-199 mg/dL: Borderline][200-499 mg/dL: High][>500 mg/dL: Very High] Performed By: #### I PB, MGO, CKB, CHM7, TRIG ####[facility] (DEFAULT)[address] [place] [address] XR CHEST PORTABLEon 08-24-20 XR CHEST PORTABLE Normal [facility] CBC,PLATELETSon 08-23-2021 Hematocrit (Bld) [Volume fraction] 30.9 % Low 34.9-44.3 [facility] Comment on above: Performed By: #### H [facility] ####[facility] (DEFAULT)[address] [place] [address] Hemoglobin (Bld) [Mass/Vol] 9.5 g/dL Low 11.4-15.2 [facility] Comment on above: Performed By: #### H [facility] ####[facility] (DEFAULT)[address] [place] [address] MCV (RBC) [Entitic vol] 86.1 fL Normal 79.6-97.7 [facility] Comment on above: Performed By: #### H EMO ####[facility] (DEFAULT)[address] [place] [address] Mean Cell Hgb 26.5 pg Normal 25.9-33.9 [facility] Comment on above: Performed By: #### H EMOGC ####[facility] (DEFAULT)[address] [place] [address] Mean Cell Hgb Conc 30.7 g/dL Low 31.4-35.9 [facility] Comment on above: Performed By: #### H EMO ####[facility] (DEFAULT)[address] [place] [address] Platelet mean volume (Bld) [Entitic vol] 11.9 fL Normal 8.5-12.2 [facility] Comment on above: Performed By: #### H EMO ####[facility] (DEFAULT)[address] [place] [address] Platelets (Bld) [#/Vol] 144 10*3/uL Low 150-393 [facility] Comment on above: Performed By: #### H EMOGC ####[facility] (DEFAULT)[address] [facility] [place] [place] [address] RBC (Bld) [#/Vol] 3.59 10*6/uL Low 3.91-5.04 [facility] Comment on above: Performed By: #### H EMOGC ####[facility] (DEFAULT)[address] [facility] [place] [place] [address] RBC Distribution 13.4 % Normal 10.8-14.9 [facility] Comment on above: Performed By: #### H EMO ####[facility] (DEFAULT)[address] [facility] [place] [address] WBC (Bld) [#/Vol] 7.01 10*3/uL Normal 3.99-11.19 [facility] Comment on above: Performed By: #### H EMOGC ####[facility] (DEFAULT)[address] [place] [address] CHEM 7 (LYTES,BUN,CREA,GLUC) on 08-23-2021 Anion gap [Moles/Vol] 11 mmol/L Normal 7-17 [facility] Comment on above: Performed By: #### C HM7, PROCAL, HFP, IPB, MGO ####[facility] (DEFAULT)[address] [facility] [place] [address] Chloride [Moles/Vol] 98 mmol/L Normal 98-108 [facility] Comment on above: Performed By: #### C HM7, PROCAL, HFP, IPB, MGO ####[facility] (DEFAULT)[address] [place] [address] CO2 [Moles/Vol] 38 mmol/L High 22-30 [facility] Comment on above: Performed By: #### C HM7, PROCAL, HFP, IPB, MGO ####[facility] (DEFAULT)[address] [place] [address] Creatinine [Mass/Vol] 0.39 mg/dL Low 0.50-1.20 [facility] Comment on above: Performed By: #### C HM7, PROCAL, HFP, IPB, MGO ####[facility] (DEFAULT)[address] [place] [address] EST GFR, >=60 Normal >=60 [facility] Comment on above: Performed By: #### C HM7, PROCAL, HFP, IPB, MGO ####[facility] (DEFAULT)[address] [place] [address] EST GFR,Non >=60 Normal >=60 [facility] Comment on above: Performed By: #### C HM7, PROCAL, HFP, IPB, MGO ####[facility] (DEFAULT)[address] [place] [address] Glucose [Mass/Vol] 94 mg/dL Normal 70-99 [facility] Comment on above: Performed By: #### C HM7, PROCAL, HFP, IPB, MGO ####[facility] (DEFAULT)[address] [place] [address] Osmolality [Osmolality] 303 mosm/kg Normal 278-305 [facility] Comment on above: Performed By: #### C HM7, PROCAL, HFP, IPB, MGO ####[facility] (DEFAULT)[address] [place] [address] Potassium [Moles/Vol] 3.2 mmol/L Low 3.5-5.0 [facility] Comment on above: Performed By: #### C HM7, PROCAL, HFP, IPB, MGO ####[facility] (DEFAULT)[address] [place] [address] Sodium [Moles/Vol] 144 mmol/L High 133-143 [facility] Comment on above: Performed By: #### C HM7, PROCAL, HFP, IPB, MGO ####[facility] (DEFAULT)[address] [place] [address] Urea nitrogen [Mass/Vol] 26 mg/dL High 7-22 [facility] Comment on above: Performed By: #### C HM7, PROCAL, HFP, IPB, MGO ####[facility] (DEFAULT)[address] [place] [address] Urea nitrogen/Creatinine [Mass ratio] 67 mg/mg Normal [facility] Comment on above: Performed By: #### C HM7, PROCAL, HFP, IPB, MGO ####[facility] (DEFAULT)[address] [place] [address] HEPATIC FUNCTION PANELon Albumin [Mass/Vol] 2.9 g/dL Low 3.5-5.0 [facility] Comment on above: Performed By: #### C HM7, PROCAL, HFP, IPB, MGO ####[facility] (DEFAULT)[address] [place] [address] ALP [Catalytic activity/Vol] 63 U/L Normal 32-126 [facility] Comment on above: Performed By: #### C HM7, PROCAL, HFP, IPB, MGO ####[facility] (DEFAULT)[address] [place] [address] ALT [Catalytic activity/Vol] 63 U/L High 9-48 [facility] Comment on above: Performed By: #### C HM7, PROCAL, HFP, IPB, MGO ####[facility] (DEFAULT)[address] [place] [address] AST [Catalytic activity/Vol] 50 U/L High 14-40 [facility] Comment on above: Performed By: #### C HM7, PROCAL, HFP, IPB, MGO ####[facility] (DEFAULT)[address] [place] [address] Bilirubin [Mass/Vol] 1.0 mg/dL Normal <1.5 [facility] Comment on above: Performed By: #### C HM7, PROCAL, HFP, IPB, MGO ####[facility] (DEFAULT)[address] [place] [address] Bilirubin.indirect [Mass/Vol] 0.6 mg/dL High <0.3 [facility] Comment on above: Performed By: #### C HM7, PROCAL, HFP, IPB, MGO ####[facility] (DEFAULT)[address] [place] [address] Protein [Mass/Vol] 6.2 g/dL Low 6.4-8.3 [facility] Comment on above: Performed By: #### C HM7, PROCAL, HFP, IPB, MGO ####[facility] (DEFAULT)[address] [place] [address] MAGNESIUMon 08-23-2021 Magnesium [Mass/Vol] 1.8 mg/dL Normal 1.6-2.6 [facility] Comment on above: Performed By: #### C HM7, PROCAL, HFP, IPB, MGO ####[facility] (DEFAULT)[address] [place] [address] PHOSPHATE, INORGANICon 08-23 Phosphorous 4.3 mg/dL Normal 2.2-4.6 [facility] Comment on above: Performed By: #### C HM7, PROCAL, HFP, IPB, MGO ####[facility] (DEFAULT)[address] [place] [address] PROCALCITONINon 08-23-2021 Procalcitonin 0.51 ng/mL High <=0.50 [facility] Comment on above: Result Comment: Proc alcitonin is an FDA-approved assay to help manage antibiotic treatment in patients with sepsis/septic shock and lower respiratory tract infections. Specifically, trending procalcitonin in these situations can be used to reduce the duration of antibiotics. Please refer to the Procalcitonin Guide on the Antimicrobial Stewardship Webpage for more guidance on how to use and trend procalcitonin in various clinical settings. [email or web address]/departments/Pharmacy/_layouts/15/Wo piFrame.aspx?sourcedoc=/departments/Pharmacy/Documents/GDLProca lcitonin.docx&action=default&DefaultItemOpen=1Two common cutoffs associated with bacterial infections are as follows.Respiratory tract infections: >0.25 ng/mLSepsis/septic shock: >0.5 ng/mLProcalcitonin should not be used alone as a diagnostic tool, however. All procalcitonin results should be interpreted in association with the patients clinical condition and all laboratory findings. Performed By: #### C HM7, PROCAL, HFP, IPB, MGO ####[facility] (DEFAULT)[address] [place] [address] TYPE AND SCREENon 08-23-2021 ABO/RH(D) TYPE Positive Normal [facility] Comment on above: Performed By: #### X M ####[facility] (DEFAULT)[address] [place] [address] US ABDOMEN RUQ/LIVER/GBon US ABDOMEN RUQ/LIVER/GB Normal [facility] BLOOD CULTUREon 08-22-2021 Bacteria identified Cx Nom (Unsp spec) NO GROWTH DAY 5 OF 5 Normal [facility] Comment on above: Order Comment: 2 Bot tles (1 Set - consists of 1 Aerobic (blue) bottle and 1 Anaerobic (purple) bottle) -1st Peripheral DrawFor syringe method draw:If able to obtain adequate sample (20 ml) inoculate anaerobic bottle firstIf inadequate sample obtained (less than 20 ml) inoculate aerobic bottle firstFor vacutainer method draw: Fill aerobic bottle first, then anaerobic Performed By: #### B LDCULT ####[facility] (DEFAULT)[address] [place] [address] CBC,PLATELETSon 08-22-2021 Hematocrit (Bld) [Volume fraction] 28.6 % Low 34.9-44.3 [facility] Comment on above: Performed By: #### H EMOGC ####[facility] (DEFAULT)[address] [place] [address] Hemoglobin (Bld) [Mass/Vol] 9.0 g/dL Low 11.4-15.2 [facility] Comment on above: Performed By: #### H EMOGC ####[facility] (DEFAULT)[address] [place] [address] MCV (RBC) [Entitic vol] 85.1 fL Normal 79.6-97.7 [facility] Comment on above: Performed By: #### H EMOGC ####[facility] (DEFAULT)[address] [place] [address] Mean Cell Hgb 26.8 pg Normal 25.9-33.9 [facility] Comment on above: Performed By: #### H EMOGC ####[facility] (DEFAULT)[address] [place] [address] Mean Cell Hgb Conc 31.5 g/dL Normal 31.4-35.9 [facility] Comment on above: Performed By: #### H EMOGC ####[facility] (DEFAULT)[address] [place] [address] Platelet mean volume (Bld) [Entitic vol] 11.6 fL Normal 8.5-12.2 [facility] Comment on above: Performed By: #### H EMOGC ####[facility] (DEFAULT)[address] [place] [address] Platelets (Bld) [#/Vol] 159 10*3/uL Normal 150-393 [facility] Comment on above: Performed By: #### H EMO ####[facility] (DEFAULT)[address] [place] [address] RBC (Bld) [#/Vol] 3.36 10*6/uL Low 3.91-5.04 [facility] Comment on above: Performed By: #### H EMO ####[facility] (DEFAULT)[address] [facility] [place] [address] RBC Distribution 13.3 % Normal 10.8-14.9 [facility] Comment on above: Performed By: #### H [facility] ####[facility] (DEFAULT)[address] [facility] [place] [address] WBC (Bld) [#/Vol] 5.82 10*3/uL Normal 3.99-11.19 [facility] Comment on above: Performed By: #### H [facility] ####[facility] (DEFAULT)[address] [facility] [place] [address] CHEM 7 (LYTES,BUN,CREA,GLUC) on 08-22-2021 Anion gap [Moles/Vol] 9 mmol/L Normal 7-17 [facility] Comment on above: Performed By: #### C HM7, MGO, CKB, TRIG, IPB ####[facility] (DEFAULT)[address] [facility] [place] [address] Chloride [Moles/Vol] 100 mmol/L Normal 98-108 [facility] Comment on above: Performed By: #### C HM7, MGO, CKB, TRIG, IPB ####[facility] (DEFAULT)[address] [place] [address] CO2 [Moles/Vol] 39 mmol/L High 22-30 [facility] Comment on above: Performed By: #### C HM7, MGO, CKB, TRIG, IPB ####[facility] (DEFAULT)[address] [place] [address] Creatinine [Mass/Vol] 0.40 mg/dL Low 0.50-1.20 [facility] Comment on above: Performed By: #### C HM7, MGO, CKB, TRIG, IPB ####[facility] (DEFAULT)[address] [place] [address] EST GFR, >=60 Normal >=60 [facility] Comment on above: Performed By: #### C HM7, MGO, CKB, TRIG, IPB ####[facility] (DEFAULT)[address] [place] [address] EST GFR,Non >=60 Normal >=60 [facility] Comment on above: Performed By: #### C HM7, MGO, CKB, TRIG, IPB ####[facility] (DEFAULT)[address] [place] [address] Glucose [Mass/Vol] 106 mg/dL High 70-99 [facility] Comment on above: Performed By: #### C HM7, MGO, CKB, TRIG, IPB ####[facility] (DEFAULT)[address] [facility] [place] [place] [address] Osmolality [Osmolality] 305 mosm/kg Normal 278-305 [facility] Comment on above: Performed By: #### C HM7, MGO, CKB, TRIG, IPB ####[facility] (DEFAULT)[address] [facility] [place] [address] Potassium [Moles/Vol] 3.9 mmol/L Normal 3.5-5.0 [facility] Comment on above: Performed By: #### C HM7, MGO, CKB, TRIG, IPB ####[facility] (DEFAULT)[address] [place] [address] Sodium [Moles/Vol] 144 mmol/L High 133-143 [facility] Comment on above: Performed By: #### C HM7, MGO, CKB, TRIG, IPB ####[facility] (DEFAULT)[address] [place] [address] Urea nitrogen [Mass/Vol] 26 mg/dL High 7-22 [facility] Comment on above: Performed By: #### C HM7, MGO, CKB, TRIG, IPB ####[facility] (DEFAULT)[address] [facility] [place] [address] Urea nitrogen/Creatinine [Mass ratio] 65 mg/mg Normal [facility] Comment on above: Performed By: #### C HM7, MGO, CKB, TRIG, IPB ####[facility] (DEFAULT)[address] [facility] [place] [place] [address] CKon 08-22-2021 CK [Catalytic activity/Vol] 25 U/L Low 30-184 [facility] Comment on above: Order Comment: While on Propofol. Performed By: #### C HM7, MGO, CKB, TRIG, IPB ####[facility] (DEFAULT)[address] [place] [address] FUNGITELL ASSAYon 08-22-2021 Fungitell (R) (1-3) -B-D-Gluca <31 Normal <60 [facility] Comment on above: Performed By: #### Y FFUNG ####[facility] (DEFAULT)[address] [facility] [place] [place] [address] Fungitell Interpretation Negative Normal [facility] Comment on above: Result Comment: This assay is for the presumptive diagnosis of fungalinfections and should be used in conjunction withother diagnostic procedures. (1->3)-nhms-C-czbdeebxjaun of <60 pg/mL are considered negative andindicate the presumptive absence of fungal infection.Glucan values of >=60 but <79 pg/mL are consideredindeterminate, and glucan values of >=80 pg/mL areconsidered positive and indicate the presumptivepresence of a fungal infection. This assay may notdetect certain fungal species that do not produce orproduce low levels of (1->3)-apdh-Y-ctlkjh including:Cryptococcus, Absidia, Mucor, Rhizopus, and the yeastphase of Blastomyces dermatitidis.Test Performed at:[facility] [address] [address]SmmubqhGlen Duval M.D., Ph.D.,Director of Laboratories Performed By: #### Y FFUNG ####[facility] (DEFAULT)[address] [place] [address] LOWER RESPIRATORY CULTURE, B ACTERIALon 08-22-2021 Clindamycin [Susceptibility] 0.25 ug/mL Invalid Interpretation Code [facility] Comment on above: Performed By: #### R ES ####[facility] (DEFAULT)[address] [place] [address] Oxacillin [Susceptibility] by Minimum inhibitory concentration (IRKY) <=0.25 Invalid Interpretation Code [facility] Comment on above: Performed By: #### R ES ####[facility] (DEFAULT)[address] [place] [address] Rifampin [Susceptibility] by Minimum inhibitory concentration (RIKY) <=0.5 Invalid Interpretation Code [facility] Comment on above: Result Comment: Rifa mpin must never be used as monotherapy for Staphylococcal infection because of the rapid emergence of resistance. Performed By: #### R ES ####[facility] (DEFAULT)[address] [place] [address] Tetracycline [Susceptibility] <=1 Invalid Interpretation Code [facility] Comment on above: Result Comment: Doxy cycline/minocycline S. aureus susceptibility can be inferred from the tetracycline RIKY when tetracycline susceptible Performed By: #### R ES ####[facility] (DEFAULT)[address] [facility] [place] [address] Trimethoprim+Sulfameth oxazole [Susceptibility] <=10 Invalid Interpretation Code [facility] Comment on above: Performed By: #### R ES ####[facility] (DEFAULT)[address] [place] [address] MAGNESIUMon 08-22-2021 Magnesium [Mass/Vol] 2.1 mg/dL Normal 1.6-2.6 [facility] Comment on above: Performed By: #### C HM7, MGO, CKB, TRIG, IPB ####[facility] (DEFAULT)[address] [place] [address] PHOSPHATE, INORGANICon 08-22 Phosphorous 3.2 mg/dL Normal 2.2-4.6 [facility] Comment on above: Performed By: #### C HM7, MGO, CKB, TRIG, IPB ####[facility] (DEFAULT)[address] [place] [address] PROCALCITONINon 08-22-2021 Procalcitonin 0.23 ng/mL Normal <=0.50 [facility] Comment on above: Result Comment: Proc alcitonin is an FDA-approved assay to help manage antibiotic treatment in patients with sepsis/septic shock and lower respiratory tract infections. Specifically, trending procalcitonin in these situations can be used to reduce the duration of antibiotics. Please refer to the Procalcitonin Guide on the Antimicrobial Stewardship Webpage for more guidance on how to use and trend procalcitonin in various clinical settings. [email or web address]/departments/Pharmacy/_layouts/15/Wo piFrame.aspx?sourcedoc=/departments/Pharmacy/Documents/GDLProca lcitonin.docx&action=default&DefaultItemOpen=1Two common cutoffs associated with bacterial infections are as follows.Respiratory tract infections: >0.25 ng/mLSepsis/septic shock: >0.5 ng/mLProcalcitonin should not be used alone as a diagnostic tool, however. All procalcitonin results should be interpreted in association with the patients clinical condition and all laboratory findings. Performed By: #### P ROCAL ####[facility] (DEFAULT)[address] [place] [address] TRIGLYCERIDEon 08-22-2021 Triglyceride [Mass/Vol] 215 mg/dL High <150 [facility] Comment on above: Order Comment: While on Propofol. Result Comment: [<15 0 mg/dL: Desirable][150-199 mg/dL: Borderline][200-499 mg/dL: High][>500 mg/dL: Very High] Performed By: #### C HM7, MGO, CKB, TRIG, IPB ####[facility] (DEFAULT)[address] [place] [address] URINALYSIS REFLEX TO CULTURE PERFORMABLEon 08-22-2021 Appearance (U) Clear Normal Clear [facility] Comment on above: Order Comment: For i ndwelling catheters, specimen collection is acceptable on catheter day 1 and 2 only. ? Performed By: #### U [id number] ####[facility] (DEFAULT)[address] [place] [address] Bacteria ABSENT Normal ABSENT [facility] Comment on above: Order Comment: For i ndwelling catheters, specimen collection is acceptable on catheter day 1 and 2 only. ? Performed By: #### U [id number] ####[facility] (DEFAULT)[address] [facility] [place] [place] [address] Blood Urine Negative Normal Negative [facility] Comment on above: Order Comment: For i ndwelling catheters, specimen collection is acceptable on catheter day 1 and 2 only. ? Performed By: #### U [id number] ####[facility] (DEFAULT)[address] [facility] [place] [place] [address] Color (U) Yellow Normal Yellow [facility] Comment on above: Order Comment: For i ndwelling catheters, specimen collection is acceptable on catheter day 1 and 2 only. ? Performed By: #### U [id number] ####[facility] (DEFAULT)[address] [facility] [place] [address] Glucose Ql (U) Negative Normal Negative [facility] Comment on above: Order Comment: For i ndwelling catheters, specimen collection is acceptable on catheter day 1 and 2 only. ? Performed By: #### U [id number] ####[facility] (DEFAULT)[address] [place] [address] Ketones Ql (U) Negative Normal Negative [facility] Comment on above: Order Comment: For i ndwelling catheters, specimen collection is acceptable on catheter day 1 and 2 only. ? Performed By: #### U [id number] ####[facility] (DEFAULT)[address] [place] [address] Leukocyte esterase Test strip Ql (U) Negative Normal Negative [facility] Comment on above: Order Comment: For i ndwelling catheters, specimen collection is acceptable on catheter day 1 and 2 only. ? Performed By: #### U [id number] ####[facility] (DEFAULT)[address] [place] [address] Nitrites Urine Negative Normal Negative [facility] Comment on above: Order Comment: For i ndwelling catheters, specimen collection is acceptable on catheter day 1 and 2 only. ? Performed By: #### U [id number] ####[facility] (DEFAULT)[address] [place] [address] pH (U) 5.0 [pH] Normal 5.0-7.0 [facility] Comment on above: Order Comment: For i ndwelling catheters, specimen collection is acceptable on catheter day 1 and 2 only. ? Performed By: #### U [id number] ####[facility] (DEFAULT)[address] [place] [address] Protein Urine Negative Normal Negative [facility] Comment on above: Order Comment: For i ndwelling catheters, specimen collection is acceptable on catheter day 1 and 2 only. ? Performed By: #### U [id number] ####[facility] (DEFAULT)[address] [place] [address] RBC Urine 0-2 Normal 0-2 [facility] Comment on above: Order Comment: For i ndwelling catheters, specimen collection is acceptable on catheter day 1 and 2 only. ? Performed By: #### U [id number] ####[facility] (DEFAULT)[address] [place] [address] Specific [place] Urine 1.012 Normal 1.001-1.035 [facility] Comment on above: Order Comment: For i ndwelling catheters, specimen collection is acceptable on catheter day 1 and 2 only. ? Performed By: #### U [id number] ####[facility] (DEFAULT)[address] [facility] [place] [address] Squamous/Epithelial Cells 1/hpf = 1+ Normal 1/hpf = 1+, 2-5/hpf = 2+, 0/hpf = 0+, ABSENT [facility] Comment on above: Order Comment: For i ndwelling catheters, specimen collection is acceptable on catheter day 1 and 2 only. ? Performed By: #### U [id number] ####[facility] (DEFAULT)[address] [place], [place] [address], [place] [address] Urobilinogen Urine 1.0 E.U./dL Normal 0.2-1.0 [facility] Comment on above: Order Comment: For i ndwelling catheters, specimen collection is acceptable on catheter day 1 and 2 only. ? Performed By: #### U [id number] ####[facility] (DEFAULT)[address] [place] [address], [place] [address] WBC Urine 0-5 Normal 0-5 [facility] Comment on above: Order Comment: For i ndwelling catheters, specimen collection is acceptable on catheter day 1 and 2 only. ? Performed By: #### U [id number] ####[facility] (DEFAULT)[address] [place], [place] [address], [place] [address] XR CHEST PORTABLEon 08-22-20 XR CHEST PORTABLE Normal [facility] CBC,PLATELETSon 08-21-2021 Hematocrit (Bld) [Volume fraction] 29.8 % Low 34.9-44.3 [facility] Comment on above: Performed By: #### H [facility] [place] ####[facility] (DEFAULT)[address] [facility] [place] [address] Hemoglobin (Bld) [Mass/Vol] 9.1 g/dL Low 11.4-15.2 [facility] Comment on above: Performed By: #### H EMOGC ####[facility] (DEFAULT)[address] [facility] [place] [address] MCV (RBC) [Entitic vol] 84.9 fL Normal 79.6-97.7 [facility] Comment on above: Performed By: #### H EMOGC ####[facility] (DEFAULT)[address] [facility] [place] [place] [address] Mean Cell Hgb 25.9 pg Normal 25.9-33.9 [facility] Comment on above: Performed By: #### H EMOGC ####[facility] (DEFAULT)[address] [facility] [place] [place] [address] Mean Cell Hgb Conc 30.5 g/dL Low 31.4-35.9 [facility] Comment on above: Performed By: #### H EMOGC ####[facility] (DEFAULT)[address] [facility] [place] [place] [address] Platelet mean volume (Bld) [Entitic vol] 11.4 fL Normal 8.5-12.2 [facility] Comment on above: Performed By: #### H EMOGC ####[facility] (DEFAULT)[address] [facility] [place] [place] [address] Platelets (Bld) [#/Vol] 161 10*3/uL Normal 150-393 [facility] Comment on above: Performed By: #### H EMOGC ####[facility] (DEFAULT)[address] [facility] [place] [place] [address] RBC (Bld) [#/Vol] 3.51 10*6/uL Low 3.91-5.04 [facility] Comment on above: Performed By: #### H EMOGC ####[facility] (DEFAULT)[address] [place] [address] RBC Distribution 13.1 % Normal 10.8-14.9 [facility] Comment on above: Performed By: #### H EMO ####[facility] (DEFAULT)[address] [place] [address] WBC (Bld) [#/Vol] 5.30 10*3/uL Normal 3.99-11.19 [facility] Comment on above: Performed By: #### H [facility] [place] ####[facility] (DEFAULT)[address] [facility] [place] [place] [address] CHEM 7 (LYTES,BUN,CREA,GLUC) on 08-21-2021 Anion gap [Moles/Vol] 10 mmol/L Normal 7-17 [facility] Comment on above: Performed By: #### H FP, MGO, IPB, CHM7 ####[facility] (DEFAULT)[address] [place] [address] Chloride [Moles/Vol] 104 mmol/L Normal 98-108 [facility] Comment on above: Performed By: #### H FP, MGO, IPB, CHM7 ####[facility] (DEFAULT)[address] [place] [address] CO2 [Moles/Vol] 35 mmol/L High 22-30 [facility] Comment on above: Performed By: #### H FP, MGO, IPB, CHM7 ####[facility] (DEFAULT)[address] [facility] [place] [place] [address] Creatinine [Mass/Vol] 0.40 mg/dL Low 0.50-1.20 [facility] Comment on above: Performed By: #### H FP, MGO, IPB, CHM7 ####[facility] (DEFAULT)[address] [facility] [place] [place] [address] EST GFR, >=60 Normal >=60 [facility] Comment on above: Performed By: #### H FP, MGO, IPB, CHM7 ####[facility] (DEFAULT)[address] [place] [address] EST GFR,Non >=60 Normal >=60 [facility] Comment on above: Performed By: #### H FP, MGO, IPB, CHM7 ####[facility] (DEFAULT)[address] [place] [address] Glucose [Mass/Vol] 145 mg/dL High 70-99 [facility] Comment on above: Performed By: #### H FP, MGO, IPB, CHM7 ####[facility] (DEFAULT)[address] [place] [address] Osmolality [Osmolality] 308 mosm/kg High 278-305 [facility] Comment on above: Performed By: #### H FP, MGO, IPB, CHM7 ####[facility] (DEFAULT)[address] [place] [address] Potassium [Moles/Vol] 4.4 mmol/L Normal 3.5-5.0 [facility] Comment on above: Performed By: #### H FP, MGO, IPB, CHM7 ####[facility] (DEFAULT)[address] [place] [address] Sodium [Moles/Vol] 145 mmol/L High 133-143 [facility] Comment on above: Performed By: #### H FP, MGO, IPB, CHM7 ####[facility] (DEFAULT)[address] [place] [address] Urea nitrogen [Mass/Vol] 19 mg/dL Normal 7-22 [facility] Comment on above: Performed By: #### H FP, MGO, IPB, CHM7 ####[facility] (DEFAULT)[address] [place] [address] Urea nitrogen/Creatinine [Mass ratio] 48 mg/mg Normal [facility] Comment on above: Performed By: #### H FP, MGO, IPB, CHM7 ####[facility] (DEFAULT)[address] [place] [address] HEPATIC FUNCTION PANELon Albumin [Mass/Vol] 2.8 g/dL Low 3.5-5.0 [facility] Comment on above: Performed By: #### H FP, MGO, IPB, CHM7 ####[facility] (DEFAULT)[address] [facility] [place] [address] ALP [Catalytic activity/Vol] 33 U/L Normal 32-126 [facility] Comment on above: Performed By: #### H FP, MGO, IPB, CHM7 ####[facility] (DEFAULT)[address] [place] [address] ALT [Catalytic activity/Vol] 72 U/L High 9-48 [facility] Comment on above: Performed By: #### H FP, MGO, IPB, CHM7 ####[facility] (DEFAULT)[address] [facility] [place] [address] AST [Catalytic activity/Vol] 21 U/L Normal 14-40 [facility] Comment on above: Performed By: #### H FP, MGO, IPB, CHM7 ####[facility] (DEFAULT)[address] [place] [address] Bilirubin [Mass/Vol] 0.5 mg/dL Normal <1.5 [facility] Comment on above: Performed By: #### H FP, MGO, IPB, CHM7 ####[facility] (DEFAULT)[address] [place] [address] Bilirubin.indirect [Mass/Vol] 0.2 mg/dL Normal <0.3 [facility] Comment on above: Performed By: #### H FP, MGO, IPB, CHM7 ####[facility] (DEFAULT)[address] [place] [address] Protein [Mass/Vol] 5.9 g/dL Low 6.4-8.3 [facility] Comment on above: Performed By: #### H FP, MGO, IPB, CHM7 ####[facility] (DEFAULT)[address] [place] [address] MAGNESIUMon 08-21-2021 Magnesium [Mass/Vol] 2.2 mg/dL Normal 1.6-2.6 [facility] Comment on above: Performed By: #### H FP, MGO, IPB, CHM7 ####[facility] (DEFAULT)[address] [place] [address] PHOSPHATE, INORGANICon 08-21 Phosphorous 2.5 mg/dL Normal 2.2-4.6 [facility] Comment on above: Performed By: #### H FP, MGO, IPB, CHM7 ####[facility] (DEFAULT)[address] [place] [address] CBC,PLATELETSon 08-20-2021 Hematocrit (Bld) [Volume fraction] 33.5 % Low 34.9-44.3 [facility] Comment on above: Performed By: #### H EMO ####[facility] (DEFAULT)[address] [place] [address] Hemoglobin (Bld) [Mass/Vol] 10.6 g/dL Low 11.4-15.2 [facility] Comment on above: Performed By: #### H EMOGC ####[facility] (DEFAULT)[address] [facility] [place] [address] MCV (RBC) [Entitic vol] 84.0 fL Normal 79.6-97.7 [facility] Comment on above: Performed By: #### H EMOGC ####[facility] (DEFAULT)[address] [place] [address] Mean Cell Hgb 26.6 pg Normal 25.9-33.9 [facility] Comment on above: Performed By: #### H EMOGC ####[facility] (DEFAULT)[address] [place] [address] Mean Cell Hgb Conc 31.6 g/dL Normal 31.4-35.9 [facility] Comment on above: Performed By: #### H EMOGC ####[facility] (DEFAULT)[address] [facility] [place] [place] [address] Platelet mean volume (Bld) [Entitic vol] 11.2 fL Normal 8.5-12.2 [facility] Comment on above: Performed By: #### H EMOGC ####[facility] (DEFAULT)[address] [facility] [place] [place] [address] Platelets (Bld) [#/Vol] 178 10*3/uL Normal 150-393 [facility] Comment on above: Performed By: #### H EMOGC ####[facility] (DEFAULT)[address] [place] [address] RBC (Bld) [#/Vol] 3.99 10*6/uL Normal 3.91-5.04 [facility] Comment on above: Performed By: #### H EMOGC ####[facility] (DEFAULT)[address] [facility] [place] [place] [address] RBC Distribution 12.7 % Normal 10.8-14.9 [facility] Comment on above: Performed By: #### H EMOGC ####[facility] (DEFAULT)[address] [facility] [place] [address] WBC (Bld) [#/Vol] 10.72 10*3/uL Normal 3.99-11.19 [facility] Comment on above: Performed By: #### H EMOGC ####[facility] (DEFAULT)[address] [place] [address] CHEM 7 (LYTES,BUN,CREA,GLUC) on 08-20-2021 Anion gap [Moles/Vol] 11 mmol/L Normal 7-17 [facility] Comment on above: Performed By: #### C KB, TRIG, IPB, MGO, CHM7, LIPA, HFP ####[facility] (DEFAULT)[address] [place] [address] Chloride [Moles/Vol] 102 mmol/L Normal 98-108 [facility] Comment on above: Performed By: #### C KB, TRIG, IPB, MGO, CHM7, LIPA, HFP ####[facility] (DEFAULT)[address] [facility] [place] [address] CO2 [Moles/Vol] 31 mmol/L High 22-30 [facility] Comment on above: Performed By: #### C KB, TRIG, IPB, MGO, CHM7, LIPA, HFP ####[facility] (DEFAULT)[address] [facility] [place] [place] [address] Creatinine [Mass/Vol] 0.45 mg/dL Low 0.50-1.20 [facility] Comment on above: Performed By: #### C KB, TRIG, IPB, MGO, CHM7, LIPA, HFP ####[facility] (DEFAULT)[address] [place] [address] EST GFR, >=60 Normal >=60 [facility] Comment on above: Performed By: #### C KB, TRIG, IPB, MGO, CHM7, LIPA, HFP ####[facility] (DEFAULT)[address] [place] [address] EST GFR,Non >=60 Normal >=60 [facility] Comment on above: Performed By: #### C KB, TRIG, IPB, MGO, CHM7, LIPA, HFP ####[facility] (DEFAULT)[address] [facility] [place] [place] [address] Glucose [Mass/Vol] 120 mg/dL High 70-99 [facility] Comment on above: Performed By: #### C KB, TRIG, IPB, MGO, CHM7, LIPA, HFP ####[facility] (DEFAULT)[address] [place] [address] Osmolality [Osmolality] 296 mosm/kg Normal 278-305 [facility] Comment on above: Performed By: #### C KB, TRIG, IPB, MGO, CHM7, LIPA, HFP ####[facility] (DEFAULT)[address] [place] [address] Potassium [Moles/Vol] 3.8 mmol/L Normal 3.5-5.0 [facility] Comment on above: Performed By: #### C KB, TRIG, IPB, MGO, CHM7, LIPA, HFP ####[facility] (DEFAULT)[address] [place] [address] Sodium [Moles/Vol] 140 mmol/L Normal 133-143 [facility] Comment on above: Performed By: #### C KB, TRIG, IPB, MGO, CHM7, LIPA, HFP ####[facility] (DEFAULT)[address] [place] [address] Urea nitrogen [Mass/Vol] 20 mg/dL Normal 7-22 [facility] Comment on above: Performed By: #### C KB, TRIG, IPB, MGO, CHM7, LIPA, HFP ####[facility] (DEFAULT)[address] [facility] [place] [address] Urea nitrogen/Creatinine [Mass ratio] 44 mg/mg Normal [facility] Comment on above: Performed By: #### C KB, TRIG, IPB, MGO, CHM7, LIPA, HFP ####[facility] (DEFAULT)[address] [place] [address] CKon 08-20-2021 CK [Catalytic activity/Vol] 66 U/L Normal 30-184 [facility] Comment on above: Performed By: #### C KB, TRIG, IPB, MGO, CHM7, LIPA, HFP ####[facility] (DEFAULT)[address] [place] [address] HEPATIC FUNCTION PANELon Albumin [Mass/Vol] 3.2 g/dL Low 3.5-5.0 [facility] Comment on above: Performed By: #### C KB, TRIG, IPB, MGO, CHM7, LIPA, HFP ####[facility] (DEFAULT)[address] [place] [address] ALP [Catalytic activity/Vol] 43 U/L Normal 32-126 [facility] Comment on above: Performed By: #### C KB, TRIG, IPB, MGO, CHM7, LIPA, HFP ####[facility] (DEFAULT)[address] [place] [address] ALT [Catalytic activity/Vol] 132 U/L High 9-48 [facility] Comment on above: Performed By: #### C KB, TRIG, IPB, MGO, CHM7, LIPA, HFP ####[facility] (DEFAULT)[address] [place] [address] AST [Catalytic activity/Vol] 66 U/L High 14-40 [facility] Comment on above: Performed By: #### C KB, TRIG, IPB, MGO, CHM7, LIPA, HFP ####[facility] (DEFAULT)[address] [place] [address] Bilirubin [Mass/Vol] 1.1 mg/dL Normal <1.5 [facility] Comment on above: Performed By: #### C KB, TRIG, IPB, MGO, CHM7, LIPA, HFP ####[facility] (DEFAULT)[address] [place] [address] Bilirubin.indirect [Mass/Vol] 0.4 mg/dL High <0.3 [facility] Comment on above: Performed By: #### C KB, TRIG, IPB, MGO, CHM7, LIPA, HFP ####[facility] (DEFAULT)[address] [place] [address] Protein [Mass/Vol] 6.4 g/dL Normal 6.4-8.3 [facility] Comment on above: Performed By: #### C KB, TRIG, IPB, MGO, CHM7, LIPA, HFP ####[facility] (DEFAULT)[address] [place] [address] IONIZED CALCIUM, INPATIENTon 08-20-2021 ICA 4.30 mg/dL Low 4.60-5.30 [facility] Comment on above: Order Comment: If io nized calcium is less than or equal to 3.0 mg/dL, recheck ionized calcium 2 hours after replacement. Performed By: #### I CA ####[facility] (DEFAULT)[address] [place] [address] LIPASEon 08-20-2021 Lipase [Catalytic activity/Vol] 44 U/L Normal 11-82 [facility] Comment on above: Performed By: #### C KB, TRIG, IPB, MGO, CHM7, LIPA, HFP ####[facility] (DEFAULT)[address] [place] [address] MAGNESIUMon 08-20-2021 Magnesium [Mass/Vol] 1.7 mg/dL Normal 1.6-2.6 [facility] Comment on above: Performed By: #### C KB, TRIG, IPB, MGO, CHM7, LIPA, HFP ####[facility] (DEFAULT)[address] [place] [address] PHOSPHATE, INORGANICon 08-20 Phosphorous 2.4 mg/dL Normal 2.2-4.6 [facility] Comment on above: Performed By: #### C KB, TRIG, IPB, MGO, CHM7, LIPA, HFP ####[facility] (DEFAULT)[address] [place] [address] TRIGLYCERIDEon 08-20-2021 Triglyceride [Mass/Vol] 92 mg/dL Normal <150 [facility] Comment on above: Result Comment: [<15 0 mg/dL: Desirable][150-199 mg/dL: Borderline][200-499 mg/dL: High][>500 mg/dL: Very High] Performed By: #### C KB, TRIG, IPB, MGO, CHM7, LIPA, HFP ####[facility] (DEFAULT)[address] [place] [address] TYPE AND SCREENon 08-20-2021 ABO/RH(D) TYPE Positive Normal [facility] Comment on above: Performed By: #### X M ####[facility] (DEFAULT)[address] [place] [address] XR CHEST PORTABLEon 08-20-20 XR CHEST PORTABLE Normal [facility] BLOOD CULTUREon 08-19-2021 Bacteria identified Cx Nom (Unsp spec) NO GROWTH DAY 5 OF 5 Normal [facility] Comment on above: Order Comment: 2 Bot tles (1 Set - consists of 1 Aerobic (blue) bottle and 1 Anaerobic (purple) bottle) -1st Peripheral DrawFor syringe method draw:If able to obtain adequate sample (20 ml) inoculate anaerobic bottle firstIf inadequate sample obtained (less than 20 ml) inoculate aerobic bottle firstFor vacutainer method draw: Fill aerobic bottle first, then anaerobic Performed By: #### B LDCULT ####[facility] (DEFAULT)[address] [place] [address] C REACTIVE PROTEINon 021 CRP [Mass/Vol] 51.44 mg/L High <10.00 [facility] Comment on above: Performed By: #### H FP, MGO, CRP, IPB, CHM7, PROCAL ####[facility] (DEFAULT)[address] [place] [address] CBC,PLATELETSon 08-19-2021 Hematocrit (Bld) [Volume fraction] 32.4 % Low 34.9-44.3 [facility] Comment on above: Performed By: #### Sánchez IRIZARRY HEMOGC ####[facility] (DEFAULT)[address] [place] [address] Hemoglobin (Bld) [Mass/Vol] 10.1 g/dL Low 11.4-15.2 [facility] Comment on above: Performed By: #### Sánchez IRIZARRY HEMOGC ####[facility] (DEFAULT)[address] [facility] [place] [place] [address] MCV (RBC) [Entitic vol] 84.4 fL Normal 79.6-97.7 [facility] Comment on above: Performed By: #### Sánchez IRIZARRY HEMOGC ####[facility] (DEFAULT)[address] [place] [address] Mean Cell Hgb 26.3 pg Normal 25.9-33.9 [facility] Comment on above: Performed By: #### Sánchez IRIZARRY HEMOGC ####[facility] (DEFAULT)[address] [place] [address] Mean Cell Hgb Conc 31.2 g/dL Low 31.4-35.9 [facility] Comment on above: Performed By: #### Sánchez IRIZARRY HEMOGC ####[facility] (DEFAULT)[address] [place] [address] Platelet mean volume (Bld) [Entitic vol] 10.9 fL Normal 8.5-12.2 [facility] Comment on above: Performed By: #### Sánchez IRIZARRY HEMOGC ####[facility] (DEFAULT)[address] [place] [address] Platelets (Bld) [#/Vol] 203 10*3/uL Normal 150-393 [facility] Comment on above: Performed By: #### Sánchez IRIZARRY HEMOGC ####[facility] (DEFAULT)[address] [facility] [place] [place] [address] RBC (Bld) [#/Vol] 3.84 10*6/uL Low 3.91-5.04 [facility] Comment on above: Performed By: #### Sánchez IRIZARRY HEMOGC ####[facility] (DEFAULT)[address] [facility] [place] [place] [address] RBC Distribution 12.6 % Normal 10.8-14.9 [facility] Comment on above: Performed By: #### Sánchez IRIZARRY HEMOGC ####[facility] (DEFAULT)[address] [place] [address] WBC (Bld) [#/Vol] 9.83 10*3/uL Normal 3.99-11.19 [facility] Comment on above: Performed By: #### Sánchez IRIZARRY HEMOGC ####[facility] (DEFAULT)[address] [place] [address] CHEM 7 (LYTES,BUN,CREA,GLUC) on 08-19-2021 Anion gap [Moles/Vol] 13 mmol/L Normal 7-17 [facility] Comment on above: Performed By: #### H FP, MGO, CRP, IPB, CHM7, PROCAL ####[facility] (DEFAULT)[address] [facility] [place] [place] [address] Chloride [Moles/Vol] 106 mmol/L Normal 98-108 [facility] Comment on above: Performed By: #### H FP, MGO, CRP, IPB, CHM7, PROCAL ####[facility] (DEFAULT)[address] [place] [address] CO2 [Moles/Vol] 27 mmol/L Normal 22-30 [facility] Comment on above: Performed By: #### H FP, MGO, CRP, IPB, CHM7, PROCAL ####[facility] (DEFAULT)[address] [place] [address] Creatinine [Mass/Vol] 0.45 mg/dL Low 0.50-1.20 [facility] Comment on above: Performed By: #### H FP, MGO, CRP, IPB, CHM7, PROCAL ####[facility] (DEFAULT)[address] [place] [address] EST GFR, >=60 Normal >=60 [facility] Comment on above: Performed By: #### H FP, MGO, CRP, IPB, CHM7, PROCAL ####[facility] (DEFAULT)[address] [place] [address] EST GFR,Non >=60 Normal >=60 [facility] Comment on above: Performed By: #### H FP, MGO, CRP, IPB, CHM7, PROCAL ####[facility] (DEFAULT)[address] [facility] [place] [address] Glucose [Mass/Vol] 98 mg/dL Normal 70-99 [facility] Comment on above: Performed By: #### H FP, MGO, CRP, IPB, CHM7, PROCAL ####[facility] (DEFAULT)[address] [place] [address] Osmolality [Osmolality] 300 mosm/kg Normal 278-305 [facility] Comment on above: Performed By: #### H FP, MGO, CRP, IPB, CHM7, PROCAL ####[facility] (DEFAULT)[address] [facility] [place] [place] [address] Potassium [Moles/Vol] 4.0 mmol/L Normal 3.5-5.0 [facility] Comment on above: Performed By: #### H FP, MGO, CRP, IPB, CHM7, PROCAL ####[facility] (DEFAULT)[address] [facility] [place] [place] [address] Sodium [Moles/Vol] 142 mmol/L Normal 133-143 [facility] Comment on above: Performed By: #### H FP, MGO, CRP, IPB, CHM7, PROCAL ####[facility] (DEFAULT)[address] [place] [address] Urea nitrogen [Mass/Vol] 22 mg/dL Normal 7-22 [facility] Comment on above: Performed By: #### H FP, MGO, CRP, IPB, CHM7, PROCAL ####[facility] (DEFAULT)[address] [place] [address] Urea nitrogen/Creatinine [Mass ratio] 49 mg/mg Normal [facility] Comment on above: Performed By: #### H FP, MGO, CRP, IPB, CHM7, PROCAL ####[facility] (DEFAULT)[address] [place] [address] HEPATIC FUNCTION PANELon Albumin [Mass/Vol] 3.1 g/dL Low 3.5-5.0 [facility] Comment on above: Performed By: #### H FP, MGO, CRP, IPB, CHM7, PROCAL ####[facility] (DEFAULT)[address] [facility] [place] [place] [address] ALP [Catalytic activity/Vol] 33 U/L Normal 32-126 [facility] Comment on above: Performed By: #### H FP, MGO, CRP, IPB, CHM7, PROCAL ####[facility] (DEFAULT)[address] [facility] [place] [place] [address] ALT [Catalytic activity/Vol] 111 U/L High 9-48 [facility] Comment on above: Performed By: #### H FP, MGO, CRP, IPB, CHM7, PROCAL ####[facility] (DEFAULT)[address] [facility] [place] [address] AST [Catalytic activity/Vol] 79 U/L High 14-40 [facility] Comment on above: Performed By: #### H FP, MGO, CRP, IPB, CHM7, PROCAL ####[facility] (DEFAULT)[address] [place] [address] Bilirubin [Mass/Vol] 1.5 mg/dL High <1.5 [facility] Comment on above: Performed By: #### H FP, MGO, CRP, IPB, CHM7, PROCAL ####[facility] (DEFAULT)[address] [place] [address] Bilirubin.indirect [Mass/Vol] 0.6 mg/dL High <0.3 [facility] Comment on above: Performed By: #### H FP, MGO, CRP, IPB, CHM7, PROCAL ####[facility] (DEFAULT)[address] [place] [address] Protein [Mass/Vol] 6.0 g/dL Low 6.4-8.3 [facility] Comment on above: Performed By: #### H FP, MGO, CRP, IPB, CHM7, PROCAL ####[facility] (DEFAULT)[address] [place] [address] LOWER RESPIRATORY CULTURE, B ACTERIALon 08-19-2021 Bacteria identified Cx Nom (Unsp spec) Normal [facility] Comment on above: Result Comment: Grow [id number] OROPHARYNGEAL MICROBESCOMMON OROPHARYNGEAL MICROBESLight Growth Common oropharyngeal microbes Performed By: #### R ES ####[facility] (DEFAULT)[address] [place] [address] Microscopic observation Gram stain Nom (Unsp spec) Normal [facility] Comment on above: Result Comment: Neut rophils, HeavyLocal materials, lightNo organisms seenSpecimen is of optimum quality Performed By: #### R ES ####[facility] (DEFAULT)[address] [place] [address] MAGNESIUMon 08-19-2021 Magnesium [Mass/Vol] 1.5 mg/dL Low 1.6-2.6 [facility] Comment on above: Performed By: #### H FP, MGO, CRP, IPB, CHM7, PROCAL ####[facility] (DEFAULT)[address] [place] [address] PHOSPHATE, INORGANICon 08-19 Phosphorous 2.5 mg/dL Normal 2.2-4.6 [facility] Comment on above: Performed By: #### H FP, MGO, CRP, IPB, CHM7, PROCAL ####[facility] (DEFAULT)[address] [place] [address] PROCALCITONINon 08-19-2021 Procalcitonin 0.08 ng/mL Normal <=0.50 [facility] Comment on above: Result Comment: Proc alcitonin is an FDA-approved assay to help manage antibiotic treatment in patients with sepsis/septic shock and lower respiratory tract infections. Specifically, trending procalcitonin in these situations can be used to reduce the duration of antibiotics. Please refer to the Procalcitonin Guide on the Antimicrobial Stewardship Webpage for more guidance on how to use and trend procalcitonin in various clinical settings. [email or web address]/[email or web address]/_[email or web address]/[email or web address] [email or web address]?sourcedoc=/departments/Pharmacy/Documents/GDLProca lcitonin.docx&action=default&DefaultItemOpen=1Two common cutoffs associated with bacterial infections are as follows.Respiratory tract infections: >0.25 ng/mLSepsis/septic shock: >0.5 ng/mLProcalcitonin should not be used alone as a diagnostic tool, however. All procalcitonin results should be interpreted in association with the patients clinical condition and all laboratory findings. Performed By: #### P ROCAL, HEMOGC ####[facility] (DEFAULT)[address] [facility] [place] [address] Procalcitonin 0.11 ng/mL Normal <=0.50 [facility] Comment on above: Result Comment: Proc alcitonin is an FDA-approved assay to help manage antibiotic treatment in patients with sepsis/septic shock and lower respiratory tract infections. Specifically, trending procalcitonin in these situations can be used to reduce the duration of antibiotics. Please refer to the Procalcitonin Guide on the Antimicrobial Stewardship Webpage for more guidance on how to use and trend procalcitonin in various clinical settings. [email or web address]/[email or web address]/_[email or web address]/Wo [email or web address]?sourcedoc=/departments/Pharmacy/Documents/GDLProca lcitonin.docx&action=default&DefaultItemOpen=1Two common cutoffs associated with bacterial infections are as follows.Respiratory tract infections: >0.25 ng/mLSepsis/septic shock: >0.5 ng/mLProcalcitonin should not be used alone as a diagnostic tool, however. All procalcitonin results should be interpreted in association with the patients clinical condition and all laboratory findings. Performed By: #### H FP, MGO, CRP, IPB, CHM7, PROCAL ####[facility] (DEFAULT)[address] [place] [address] URINALYSIS REFLEX TO CULTURE PERFORMABLEon 08-19-2021 Appearance (U) Turbid Abnormal Clear [facility] Comment on above: Order Comment: For i ndwelling catheters, specimen collection is acceptable on catheter day 1 and 2 only. ? Result Comment: Resu lts may be inaccurate due to color interference. Clinical correlation recommended. Performed By: #### U [id number] ####[facility] (DEFAULT)[address] [place] [address] Bacteria TRACE Abnormal ABSENT [facility] Comment on above: Order Comment: For i ndwelling catheters, specimen collection is acceptable on catheter day 1 and 2 only. ? Performed By: #### U [id number] ####[facility] (DEFAULT)[address] [place] [address] Blood Urine Large Abnormal Negative [facility] Comment on above: Order Comment: For i ndwelling catheters, specimen collection is acceptable on catheter day 1 and 2 only. ? Result Comment: Resu lts may be inaccurate due to color interference. Clinical correlation recommended. Performed By: #### U [id number] ####[facility] (DEFAULT)[address] [facility] [place] [address] Color (U) Red Abnormal Yellow [facility] Comment on above: Order Comment: For i ndwelling catheters, specimen collection is acceptable on catheter day 1 and 2 only. ? Result Comment: Resu lts may be inaccurate due to color interference. Clinical correlation recommended. Performed By: #### U [id number] ####[facility] (DEFAULT)[address] [facility] [place] [address] Glucose Ql (U) Negative Normal Negative [facility] Comment on above: Order Comment: For i ndwelling catheters, specimen collection is acceptable on catheter day 1 and 2 only. ? Result Comment: Resu lts may be inaccurate due to color interference. Clinical correlation recommended. Performed By: #### U [id number] ####[facility] (DEFAULT)[address] [place] [address] Ketones Ql (U) Negative Normal Negative [facility] Comment on above: Order Comment: For i ndwelling catheters, specimen collection is acceptable on catheter day 1 and 2 only. ? Result Comment: Resu lts may be inaccurate due to color interference. Clinical correlation recommended. Performed By: #### U [id number] ####[facility] (DEFAULT)[address] [place] [address] Leukocyte esterase Test strip Ql (U) Moderate Abnormal Negative [facility] Comment on above: Order Comment: For i ndwelling catheters, specimen collection is acceptable on catheter day 1 and 2 only. ? Result Comment: Resu lts may be inaccurate due to color interference. Clinical correlation recommended. Performed By: #### U [id number] ####[facility] (DEFAULT)[address] [facility] [place] [address] Nitrites Urine Positive Abnormal Negative [facility] Comment on above: Order Comment: For i ndwelling catheters, specimen collection is acceptable on catheter day 1 and 2 only. ? Result Comment: Resu lts may be inaccurate due to color interference. Clinical correlation recommended. Performed By: #### U [id number] ####[facility] (DEFAULT)[address] [place] [address], [place] [address] pH (U) 5.0 [pH] Normal 5.0-7.0 [facility] Comment on above: Order Comment: For i ndwelling catheters, specimen collection is acceptable on catheter day 1 and 2 only. ? Result Comment: Resu lts may be inaccurate due to color interference. Clinical correlation recommended. Performed By: #### U [id number] ####[facility] (DEFAULT)[address] [place] [address], [place] [address] Protein Urine 100 mg/dL Abnormal Negative [facility] Comment on above: Order Comment: For i ndwelling catheters, specimen collection is acceptable on catheter day 1 and 2 only. ? Result Comment: Resu lts may be inaccurate due to color interference. Clinical correlation recommended. Performed By: #### U [id number] ####[facility] (DEFAULT)[address] [place] [address], [place] [address] RBC LM.HPF (Urine sed) [#/Area] /[HPF] Abnormal 0-2 [facility] Comment on above: Order Comment: For i ndwelling catheters, specimen collection is acceptable on catheter day 1 and 2 only. ? Performed By: #### U [id number] ####[facility] (DEFAULT)[address] [place] [address], [place] [address] Specific [place] Urine 1.033 Normal 1.001-1.035 [facility] Comment on above: Order Comment: For i ndwelling catheters, specimen collection is acceptable on catheter day 1 and 2 only. ? Result Comment: Resu lts may be inaccurate due to color interference. Clinical correlation recommended. Performed By: #### U [id number] ####[facility] (DEFAULT)[address] [place] [address], [place] [address] Squamous/Epithelial Cells 2-5/hpf = 2+ Normal 1/hpf = 1+, 2-5/hpf = 2+, 0/hpf = 0+, ABSENT [facility] Comment on above: Order Comment: For i ndwelling catheters, specimen collection is acceptable on catheter day 1 and 2 only. ? Performed By: #### U [id number] ####[facility] (DEFAULT)[address] [place] [address] Urobilinogen Urine 1.0 E.U./dL Normal 0.2-1.0 [facility] Comment on above: Order Comment: For i ndwelling catheters, specimen collection is acceptable on catheter day 1 and 2 only. ? Result Comment: Resu lts may be inaccurate due to color interference. Clinical correlation recommended. Performed By: #### U [id number] ####[facility] (DEFAULT)[address] [place] [address] WBC LM.HPF (Urine sed) [#/Area] /[HPF] Abnormal 0-5 [facility] Comment on above: Order Comment: For i ndwelling catheters, specimen collection is acceptable on catheter day 1 and 2 only. ? Performed By: #### U [id number] ####[facility] (DEFAULT)[address] [place] [address] URINE CULTUREon 08-19-2021 Bacteria identified Cx Nom (U) No Growth Normal [facility] Comment on above: Order Comment: For i ndwelling catheters, specimen collection is acceptable on catheter day 1 and 2 only. Sorensen top vacutainer. Urine must be to the fill line to process (4mls). If minimum volume, send urine in a yellow top vacutainer tube.For indwelling catheters, specimen collection is acceptable on catheter day 1 and 2 only. ? Performed By: #### U R ####[facility] (DEFAULT)[address] [place] [address] XR CHEST PORTABLEon 08-19-20 21 XR CHEST PORTABLE Normal [facility] CBC,PLATELETSon 08-18-2021 Hematocrit (Bld) [Volume fraction] 32.4 % Low 34.9-44.3 [facility] Comment on above: Performed By: #### H EMOGC ####[facility] (DEFAULT)[address] [facility] [place] [address] Hemoglobin (Bld) [Mass/Vol] 10.2 g/dL Low 11.4-15.2 [facility] Comment on above: Performed By: #### H EMOGC ####[facility] (DEFAULT)[address] [place] [address] MCV (RBC) [Entitic vol] 85.3 fL Normal 79.6-97.7 [facility] Comment on above: Performed By: #### H EMOGC ####[facility] (DEFAULT)[address] [facility] [place] [address] Mean Cell Hgb 26.8 pg Normal 25.9-33.9 [facility] Comment on above: Performed By: #### H EMOGC ####[facility] (DEFAULT)[address] [facility] [place] [address] Mean Cell Hgb Conc 31.5 g/dL Normal 31.4-35.9 [facility] Comment on above: Performed By: #### H EMOGC ####[facility] (DEFAULT)[address] [facility] [place] [address] Platelet mean volume (Bld) [Entitic vol] 11.1 fL Normal 8.5-12.2 [facility] Comment on above: Performed By: #### H EMOGC ####[facility] (DEFAULT)[address] [facility] [place] [address] Platelets (Bld) [#/Vol] 235 10*3/uL Normal 150-393 [facility] Comment on above: Performed By: #### H EMOGC ####[facility] (DEFAULT)[address] [facility] [place] [address] RBC (Bld) [#/Vol] 3.80 10*6/uL Low 3.91-5.04 [facility] Comment on above: Performed By: #### H EMOGC ####[facility] (DEFAULT)[address] [place] [address] RBC Distribution 12.7 % Normal 10.8-14.9 [facility] Comment on above: Performed By: #### H [facility] ####[facility] (DEFAULT)[address] [place] [address] WBC (Bld) [#/Vol] 7.81 10*3/uL Normal 3.99-11.19 [facility] Comment on above: Performed By: #### H [facility] ####[facility] (DEFAULT)[address] [place] [address] CHEM 7 (LYTES,BUN,CREA,GLUC) on 08-18-2020 Anion gap [Moles/Vol] 10 mmol/L Normal 7-17 [facility] Comment on above: Performed By: #### C HM7, HFP, IPB, MGO ####[facility] (DEFAULT)[address] [place] [address] Chloride [Moles/Vol] 106 mmol/L Normal 98-108 [facility] Comment on above: Performed By: #### C HM7, HFP, IPB, MGO ####[facility] (DEFAULT)[address] [place] [address] CO2 [Moles/Vol] 30 mmol/L Normal 22-30 [facility] Comment on above: Performed By: #### C HM7, HFP, IPB, MGO ####[facility] (DEFAULT)[address] [place] [address] Creatinine [Mass/Vol] 0.47 mg/dL Low 0.50-1.20 [facility] Comment on above: Performed By: #### C HM7, HFP, IPB, MGO ####[facility] (DEFAULT)[address] [facility] [place] [address] EST GFR, >=60 Normal >=60 [facility] Comment on above: Performed By: #### C HM7, HFP, IPB, MGO ####[facility] (DEFAULT)[address] [place] [address] EST GFR,Non >=60 Normal >=60 [facility] Comment on above: Performed By: #### C HM7, HFP, IPB, MGO ####[facility] (DEFAULT)[address] [place] [address] Glucose [Mass/Vol] 114 mg/dL High 70-99 [facility] Comment on above: Performed By: #### C HM7, HFP, IPB, MGO ####[facility] (DEFAULT)[address] [place] [address] Osmolality [Osmolality] 303 mosm/kg Normal 278-305 [facility] Comment on above: Performed By: #### C HM7, HFP, IPB, MGO ####[facility] (DEFAULT)[address] [place] [address] Potassium [Moles/Vol] 4.0 mmol/L [facility] 3.5-[facility].0 [facility] Comment on above: Performed By: #### C HM7, HFP, IPB, MGO ####[facility] (DEFAULT)[address] [place] [address] Sodium [Moles/Vol] 142 mmol/L Normal 133-143 [facility] Comment on above: Performed By: #### C HM7, HFP, IPB, MGO ####[facility] (DEFAULT)[address] [place] [address] Urea nitrogen [Mass/Vol] 28 mg/dL High 7-22 [facility] Comment on above: Performed By: #### C HM7, HFP, IPB, MGO ####[facility] (DEFAULT)[address] [place] [address] Urea nitrogen/Creatinine [Mass ratio] 60 mg/mg Normal [facility] Comment on above: Performed By: #### C HM7, HFP, IPB, MGO ####[facility] (DEFAULT)[address] [place] [address] HEPATIC FUNCTION PANELon Albumin [Mass/Vol] 3.2 g/dL Low 3.5-5.0 [facility] Comment on above: Performed By: #### C HM7, HFP, IPB, MGO ####[facility] (DEFAULT)[address] [place] [address] ALP [Catalytic activity/Vol] 27 U/L Low 32-126 [facility] Comment on above: Performed By: #### C HM7, HFP, IPB, MGO ####[facility] (DEFAULT)[address] [place] [address] ALT [Catalytic activity/Vol] 34 U/L Normal 9-48 [facility] Comment on above: Performed By: #### C HM7, HFP, IPB, MGO ####[facility] (DEFAULT)[address] [place] [address] AST [Catalytic activity/Vol] 33 U/L Normal 14-40 [facility] Comment on above: Performed By: #### C HM7, HFP, IPB, MGO ####[facility] (DEFAULT)[address] [place] [address] Bilirubin [Mass/Vol] 1.0 mg/dL Normal <1.5 [facility] Comment on above: Performed By: #### C HM7, HFP, IPB, MGO ####[facility] (DEFAULT)[address] [place] [address] Bilirubin.indirect [Mass/Vol] 0.2 mg/dL Normal <0.3 [facility] Comment on above: Performed By: #### C HM7, HFP, IPB, MGO ####[facility] (DEFAULT)[address] [place] [address] Protein [Mass/Vol] 6.2 g/dL Low 6.4-8.3 [facility] Comment on above: Performed By: #### C HM7, HFP, IPB, MGO ####[facility] (DEFAULT)[address] [place] [address] MAGNESIUMon 08-18-2021 Magnesium [Mass/Vol] 2.1 mg/dL Normal 1.6-2.6 [facility] Comment on above: Performed By: #### C HM7, HFP, IPB, MGO ####[facility] (DEFAULT)[address] [facility] [place] [address] PHOSPHATE, INORGANICon 08-18 Phosphorous 2.9 mg/dL Normal 2.2-4.6 [facility] Comment on above: Performed By: #### C HM7, HFP, IPB, MGO ####[facility] (DEFAULT)[address] [place] [address] XR CHEST PORTABLEon 08-18-20 XR CHEST PORTABLE Normal [facility] XR CHEST PORTABLE Normal [facility] XR CHEST PORTABLE Normal [facility] CBC,PLATELETSon 08-17-2021 Hematocrit (Bld) [Volume fraction] 32.1 % Low 34.9-44.3 [facility] Comment on above: Performed By: #### H [facility] ####[facility] (DEFAULT)[address] [facility] [place] [address] Hemoglobin (Bld) [Mass/Vol] 10.1 g/dL Low 11.4-15.2 [facility] Comment on above: Performed By: #### H [facility] ####[facility] (DEFAULT)[address] [facility] [place] [address] MCV (RBC) [Entitic vol] 84.0 fL Normal 79.6-97.7 [facility] Comment on above: Performed By: #### H [facility] ####[facility] (DEFAULT)[address] [place] [address] Mean Cell Hgb 26.4 pg Normal 25.9-33.9 [facility] Comment on above: Performed By: #### H EMOGC ####[facility] (DEFAULT)[address] [place] [address] Mean Cell Hgb Conc 31.5 g/dL Normal 31.4-35.9 [facility] Comment on above: Performed By: #### H EMOGC ####[facility] (DEFAULT)[address] [facility] [place] [address] Platelet mean volume (Bld) [Entitic vol] 11.0 fL Normal 8.5-12.2 [facility] Comment on above: Performed By: #### H EMOGC ####[facility] (DEFAULT)[address] [facility] [place] [place] [address] Platelets (Bld) [#/Vol] 221 10*3/uL Normal 150-393 [facility] Comment on above: Performed By: #### H EMOGC ####[facility] (DEFAULT)[address] [facility] [place] [place] [address] RBC (Bld) [#/Vol] 3.82 10*6/uL Low 3.91-5.04 [facility] Comment on above: Performed By: #### H EMOGC ####[facility] (DEFAULT)[address] [facility] [place] [place] [address] RBC Distribution 12.6 % Normal 10.8-14.9 [facility] Comment on above: Performed By: #### H EMOGC ####[facility] (DEFAULT)[address] [facility] [place] [place] [address] WBC (Bld) [#/Vol] 7.62 10*3/uL Normal 3.99-11.19 [facility] Comment on above: Performed By: #### H EMOGC ####[facility] (DEFAULT)[address] [place] [address] CHEM 7 (LYTES,BUN,CREA,GLUC) on 08-17-2021 Anion gap [Moles/Vol] 16 mmol/L Normal 7-17 [facility] Comment on above: Performed By: #### M MARKO CHM7, IPB ####[facility] (DEFAULT)[address] [place] [address] Chloride [Moles/Vol] 106 mmol/L Normal 98-108 [facility] Comment on above: Performed By: #### M MARKO CHM7, IPB ####[facility] (DEFAULT)[address] [place] [address] CO2 [Moles/Vol] 25 mmol/L Normal 22-30 [facility] Comment on above: Performed By: #### Sukhjinder ZHU CHM7, IPB ####[facility] (DEFAULT)[address] [place] [address] Creatinine [Mass/Vol] 0.53 mg/dL Normal 0.50-1.20 [facility] Comment on above: Performed By: #### Sukhjinder ZHU CHM7, IPB ####[facility] (DEFAULT)[address] [place] [address] EST GFR, >=60 Normal >=60 [facility] Comment on above: Performed By: #### Sukhjinder ZHU CHM7, IPB ####[facility] (DEFAULT)[address] [place] [address] EST GFR,Non >=60 Normal >=60 [facility] Comment on above: Performed By: #### Sukhjinder ZHU CHM7, IPB ####[facility] (DEFAULT)[address] [place] [address] Glucose [Mass/Vol] 113 mg/dL High 70-99 [facility] Comment on above: Performed By: #### SCOTT YAO, IPB ####[facility] (DEFAULT)[address] [place] [address] Osmolality [Osmolality] 304 mosm/kg Normal 278-305 [facility] Comment on above: Performed By: #### SCOTT YAO, IPB ####[facility] (DEFAULT)[address] [place] [address] Potassium [Moles/Vol] 4.5 mmol/L [facility] 3.5-[facility].0 [facility] Comment on above: Performed By: #### SCOTT YAO, IPB ####[facility] (DEFAULT)[address] [place] [address] Sodium [Moles/Vol] 142 mmol/L Normal 133-143 [facility] Comment on above: Performed By: #### SCOTT YAO, IPB ####[facility] (DEFAULT)[address] [place] [address] Urea nitrogen [Mass/Vol] 29 mg/dL High 7-22 [facility] Comment on above: Performed By: #### SCOTT YAO, IPB ####[facility] (DEFAULT)[address] [place] [address] Urea nitrogen/Creatinine [Mass ratio] 55 mg/mg Normal [facility] Comment on above: Performed By: #### SCOTT YAO, IPB ####[facility] (DEFAULT)[address] [place] [address] MAGNESIUMon 08-17-2021 Magnesium [Mass/Vol] 2.0 mg/dL Normal 1.6-2.6 [facility] Comment on above: Performed By: #### SCOTT YAO, IPB ####[facility] (DEFAULT)[address] [place] [address] PHOSPHATE, INORGANICon 08-17 Phosphorous 2.8 mg/dL Normal 2.2-4.6 [facility] Comment on above: Performed By: #### M GO, CHM7, IPB ####[facility] (DEFAULT)[address] [place] [address] TYPE AND SCREENon 08-17-2021 ABO/RH(D) TYPE Positive Normal [facility] Comment on above: Performed By: #### X M ####[facility] (DEFAULT)[address] [place] [address] XR CHEST PORTABLEon 08-17-20 XR CHEST PORTABLE Normal [facility] ANTI XA LMWH (ENOXAPARIN),*E XACT TIME REQUIRED* 4 HR Sourav 08-16-2021 Anti Xa LMWH (Enoxaparin) 4 Hr Post 0.25 Anti-Xa IU/mL Low 0.60-1.00 [facility] Comment on above: Order Comment: Draw 4 hours after enoxaparin dose given at 2044 on 08/15. Please hold dose if level > 0.4 and call pharmacy. Result Comment: Ther apeutic range applies to 4 hour post dose collections. Performed By: #### A [id number] ####[facility] (DEFAULT)[address] [place] [address] CBC AND ELECTRONIC DIFFon Basophils (Bld) [#/Vol] 10*3/uL Normal 0.00-0.15 [facility] Comment on above: Performed By: #### L [id number] ####[facility] (DEFAULT)[address] [place] [address] Basophils/100 WBC (Bld) 0.1 % Normal [facility] Comment on above: Performed By: #### L [id number] ####[facility] (DEFAULT)[address] [place] [address] DIFF STATUS Electronic Differential Normal [facility] Comment on above: Performed By: #### L [id number] ####[facility] (DEFAULT)[address] [place] [address] Eosinophils (Bld) [#/Vol] 10*3/uL Normal 0.00-0.42 [facility] Comment on above: Performed By: #### L AB980 ####[facility] (DEFAULT)[address] [place] [address] Eosinophils/100 WBC (Bld) 0.0 % Normal [facility] Comment on above: Performed By: #### L AB980 ####[facility] (DEFAULT)[address] [place] [address] Hematocrit (Bld) [Volume fraction] 32.7 % Low 34.9-44.3 [facility] Comment on above: Performed By: #### L AB980 ####[facility] (DEFAULT)[address] [place] [address] Hemoglobin (Bld) [Mass/Vol] 10.4 g/dL Low 11.4-15.2 [facility] Comment on above: Performed By: #### L AB980 ####[facility] (DEFAULT)[address] [facility] [place] [address] Immature Grans % 1.1 % Normal [facility] Comment on above: Performed By: #### L AB980 ####[facility] (DEFAULT)[address] [facility] [place] [place] [address] Immature Grans Absolute 0.08 K/uL Normal <=0.09 [facility] Comment on above: Performed By: #### L AB980 ####[facility] (DEFAULT)[address] [facility] [place] [place] [address] Lymphocytes (Bld) [#/Vol] 0.56 10*3/uL Low 1.16-3.51 [facility] Comment on above: Performed By: #### L AB980 ####[facility] (DEFAULT)[address] [place] [address] Lymphocytes/100 WBC (Bld) 7.8 % Normal [facility] Comment on above: Performed By: #### L AB980 ####[facility] (DEFAULT)[address] [facility] [place] [place] [address] MCV (RBC) [Entitic vol] 85.2 fL Normal 79.6-97.7 [facility] Comment on above: Performed By: #### L AB980 ####[facility] (DEFAULT)[address] [facility] [place] [place] [address] Mean Cell Hgb 27.1 pg Normal 25.9-33.9 [facility] Comment on above: Performed By: #### L AB980 ####[facility] (DEFAULT)[address] [place] [address] Mean Cell Hgb Conc 31.8 g/dL Normal 31.4-35.9 [facility] Comment on above: Performed By: #### L AB980 ####[facility] (DEFAULT)[address] [place] [address] Monocytes (Bld) [#/Vol] 0.22 10*3/uL Normal 0.22-0.87 [facility] Comment on above: Performed By: #### L AB980 ####[facility] (DEFAULT)[address] [place] [address] Monocytes/100 WBC (Bld) 3.1 % Normal [facility] Comment on above: Performed By: #### L AB980 ####[facility] (DEFAULT)[address] [place] [address] Nucleated RBC 0.0 /100 WBC Normal <=0.2 [facility] Comment on above: Performed By: #### L AB980 ####[facility] (DEFAULT)[address] [facility] [place] [address] Platelet mean volume (Bld) [Entitic vol] 10.7 fL Normal 8.5-12.2 [facility] Comment on above: Performed By: #### L AB980 ####[facility] (DEFAULT)[address] [facility] [place] [place] [address] Platelets (Bld) [#/Vol] 230 10*3/uL Normal 150-393 [facility] Comment on above: Performed By: #### L AB980 ####[facility] (DEFAULT)[address] [place] [address] RBC (Bld) [#/Vol] 3.84 10*6/uL Low 3.91-5.04 [facility] Comment on above: Performed By: #### L AB980 ####[facility] (DEFAULT)[address] [facility] [place] [place] [address] RBC Distribution 12.7 % Normal 10.8-14.9 [facility] Comment on above: Performed By: #### L AB980 ####[facility] (DEFAULT)[address] [facility] [place] [address] Segs + Bands Auto 87.9 % Normal [facility] Comment on above: Performed By: #### L AB980 ####[facility] (DEFAULT)[address] [facility] [place] [place] [address] Segs + Bands,Absolute Auto 6.30 K/uL Normal 1.64-7.28 [facility] Comment on above: Performed By: #### L AB980 ####[facility] (DEFAULT)[address] [place] [address] WBC (Bld) [#/Vol] 7.17 10*3/uL Normal 3.99-11.19 [facility] Comment on above: Performed By: #### L AB980 ####[facility] (DEFAULT)[address] [place] [address] CHEM 7 (LYTES,BUN,CREA,GLUC) on 08-16-2021 Anion gap [Moles/Vol] 12 mmol/L Normal 7-17 [facility] Comment on above: Performed By: #### C KB, PROCAL, IPB, CHM7, TRIG, MGO ####[facility] (DEFAULT)[address] [place] [address] Chloride [Moles/Vol] 108 mmol/L Normal 98-108 [facility] Comment on above: Performed By: #### C KB, PROCAL, IPB, CHM7, TRIG, MGO ####[facility] (DEFAULT)[address] [place] [address] CO2 [Moles/Vol] 30 mmol/L Normal 22-30 [facility] Comment on above: Performed By: #### C KB, PROCAL, IPB, CHM7, TRIG, MGO ####[facility] (DEFAULT)[address] [facility] [place] [address] Creatinine [Mass/Vol] 0.56 mg/dL Normal 0.50-1.20 [facility] Comment on above: Performed By: #### C KB, PROCAL, IPB, CHM7, TRIG, MGO ####[facility] (DEFAULT)[address] [place] [address] EST GFR, >=60 Normal >=60 [facility] Comment on above: Performed By: #### C KB, PROCAL, IPB, CHM7, TRIG, MGO ####[facility] (DEFAULT)[address] [place] [address] EST GFR,Non >=60 Normal >=60 [facility] Comment on above: Performed By: #### C KB, PROCAL, IPB, CHM7, TRIG, MGO ####[facility] (DEFAULT)[address] [facility] [place] [address] Glucose [Mass/Vol] 127 mg/dL High 70-99 [facility] Comment on above: Performed By: #### C KB, PROCAL, IPB, CHM7, TRIG, MGO ####[facility] (DEFAULT)[address] [facility] [place] [address] Osmolality [Osmolality] 311 mosm/kg High 278-305 [facility] Comment on above: Performed By: #### Lori MCGOVERN, PROCAL, IPB, CHM7, TRIG, MGO ####[facility] (DEFAULT)[address] [place] [address] Potassium [Moles/Vol] 4.7 mmol/L Normal 3.5-5.0 [facility] Comment on above: Performed By: #### Lori MCGOVERN, PROCAL, IPB, CHM7, TRIG, MGO ####[facility] (DEFAULT)[address] [facility] [place] [address] Sodium [Moles/Vol] 145 mmol/L High 133-143 [facility] Comment on above: Performed By: #### Lori MCGOVERN, PROCAL, IPB, CHM7, TRIG, MGO ####[facility] (DEFAULT)[address] [facility] [place] [address] Urea nitrogen [Mass/Vol] 29 mg/dL High 7-22 [facility] Comment on above: Performed By: #### Lori MCGOVERN, PROCAL, IPB, CHM7, TRIG, MGO ####[facility] (DEFAULT)[address] [facility] [place] [address] Urea nitrogen/Creatinine [Mass ratio] 52 mg/mg Normal [facility] Comment on above: Performed By: #### Lori MCGOVERN, PROCAL, IPB, CHM7, TRIG, MGO ####[facility] (DEFAULT)[address] [facility] [place] [address] CKon 08-16-2021 CK [Catalytic activity/Vol] 152 U/L Normal 30-184 [facility] Comment on above: Order Comment: While on Propofol. Performed By: #### Lori KB, PROCAL, IPB, CHM7, TRIG, MGO ####[facility] (DEFAULT)[address] [facility] [place] [place] [address] MAGNESIUMon 08-16-2021 Magnesium [Mass/Vol] 2.4 mg/dL Normal 1.6-2.6 [facility] Comment on above: Performed By: #### C KB, PROCAL, IPB, CHM7, TRIG, MGO ####[facility] (DEFAULT)[address] [place] [address] PHOSPHATE, INORGANICon 08-16 Phosphorous 2.6 mg/dL Normal 2.2-4.6 [facility] Comment on above: Performed By: #### C KB, PROCAL, IPB, CHM7, TRIG, MGO ####[facility] (DEFAULT)[address] [facility] [place] [place] [address] PROCALCITONINon 08-16-2021 Procalcitonin 0.09 ng/mL Normal <=0.50 [facility] Comment on above: Result Comment: Proc alcitonin is an FDA-approved assay to help manage antibiotic treatment in patients with sepsis/septic shock and lower respiratory tract infections. Specifically, trending procalcitonin in these situations can be used to reduce the duration of antibiotics. Please refer to the Procalcitonin Guide on the Antimicrobial Stewardship Webpage for more guidance on how to use and trend procalcitonin in various clinical settings. [email or web address]?[email or web address]=/departments/[email or web address]/Documents/[email or web address] [email or web address]&action=[email or web address] common cutoffs associated with bacterial infections are as follows.Respiratory tract infections: >0.25 ng/mLSepsis/septic shock: >0.5 ng/mLProcalcitonin should not be used alone as a diagnostic tool, however. All procalcitonin results should be interpreted in association with the patients clinical condition and all laboratory findings. Performed By: #### C KB, PROCAL, IPB, CHM7, TRIG, MGO ####[facility] (DEFAULT)[address] [place] [address] TRIGLYCERIDEon 08-16-2021 Triglyceride [Mass/Vol] 209 mg/dL High <150 [facility] Comment on above: Order Comment: While on Propofol. Result Comment: [<15 0 mg/dL: Desirable][150-199 mg/dL: Borderline][200-499 mg/dL: High][>500 mg/dL: Very High] Performed By: #### C KB, PROCAL, IPB, CHM7, TRIG, MGO ####[facility] (DEFAULT)[address] [place] [address] XR CHEST PORTABLEon 08-16-20 21 XR CHEST PORTABLE Normal [facility] C REACTIVE PROTEINon 021 CRP [Mass/Vol] 164.92 mg/L High <10.00 [facility] Comment on above: Performed By: #### C RP, IPB, MGO, CHM7 ####[facility] (DEFAULT)[address] [place] [address] CBC AND ELECTRONIC DIFFon Basophils (Bld) [#/Vol] 10*3/uL Normal 0.00-0.15 [facility] Comment on above: Performed By: #### L AB980 ####[facility] (DEFAULT)[address] [place] [address] Basophils/100 WBC (Bld) 0.1 % Normal [facility] Comment on above: Performed By: #### L AB980 ####[facility] (DEFAULT)[address] [place] [address] DIFF STATUS Electronic Differential Normal [facility] Comment on above: Performed By: #### L AB980 ####[facility] (DEFAULT)[address] [place] [address] Eosinophils (Bld) [#/Vol] 10*3/uL Normal 0.00-0.42 [facility] Comment on above: Performed By: #### L AB980 ####[facility] (DEFAULT)[address] [place] [address] Eosinophils/100 WBC (Bld) 0.0 % Normal [facility] Comment on above: Performed By: #### L AB980 ####[facility] (DEFAULT)[address] [facility] [place] [place] [address] Hematocrit (Bld) [Volume fraction] 36.6 % Normal 34.9-44.3 [facility] Comment on above: Performed By: #### L AB980 ####[facility] (DEFAULT)[address] [place] [address] Hemoglobin (Bld) [Mass/Vol] 11.2 g/dL Low 11.4-15.2 [facility] Comment on above: Performed By: #### L AB980 ####[facility] (DEFAULT)[address] [place] [address] Immature Grans % 0.9 % Normal [facility] Comment on above: Performed By: #### L AB980 ####[facility] (DEFAULT)[address] [place] [address] Immature Grans Absolute 0.08 K/uL Normal <=0.09 [facility] Comment on above: Performed By: #### L AB980 ####[facility] (DEFAULT)[address] [place] [address] Lymphocytes (Bld) [#/Vol] 0.55 10*3/uL Low 1.16-3.51 [facility] Comment on above: Performed By: #### L AB980 ####[facility] (DEFAULT)[address] [place] [address] Lymphocytes/100 WBC (Bld) 6.0 % Normal [facility] Comment on above: Performed By: #### L AB980 ####[facility] (DEFAULT)[address] [place] [address] MCV (RBC) [Entitic vol] 85.9 fL Normal 79.6-97.7 [facility] Comment on above: Result Comment: Resu lts inconsistent with previous results Performed By: #### L AB980 ####[facility] (DEFAULT)[address] [place] [address] Mean Cell Hgb 26.3 pg Normal 25.9-33.9 [facility] Comment on above: Performed By: #### L AB980 ####[facility] (DEFAULT)[address] [place] [address] Mean Cell Hgb Conc 30.6 g/dL Low 31.4-35.9 [facility] Comment on above: Performed By: #### L AB980 ####[facility] (DEFAULT)[address] [place] [address] Monocytes (Bld) [#/Vol] 0.20 10*3/uL Low 0.22-0.87 [facility] Comment on above: Performed By: #### L AB980 ####[facility] (DEFAULT)[address] [facility] [place] [place] [address] Monocytes/100 WBC (Bld) 2.2 % Normal [facility] Comment on above: Performed By: #### L AB980 ####[facility] (DEFAULT)[address] [place] [address] Nucleated RBC 0.0 /100 WBC Normal <=0.2 [facility] Comment on above: Performed By: #### L AB980 ####[facility] (DEFAULT)[address] [place] [address] Platelet mean volume (Bld) [Entitic vol] 10.6 fL Normal 8.5-12.2 [facility] Comment on above: Performed By: #### L AB980 ####[facility] (DEFAULT)[address] [place] [address] Platelets (Bld) [#/Vol] 239 10*3/uL Normal 150-393 [facility] Comment on above: Performed By: #### L AB980 ####[facility] (DEFAULT)[address] [facility] [place] [place] [address] RBC (Bld) [#/Vol] 4.26 10*6/uL Normal 3.91-5.04 [facility] Comment on above: Performed By: #### L AB980 ####[facility] (DEFAULT)[address] [facility] [place] [place] [address] RBC Distribution 12.6 % Normal 10.8-14.9 [facility] Comment on above: Performed By: #### L AB980 ####[facility] (DEFAULT)[address] [facility] [place] [place] [address] Segs + Bands Auto 90.8 % Normal [facility] Comment on above: Performed By: #### L AB980 ####[facility] (DEFAULT)[address] [place] [address] Segs + Bands,Absolute Auto 8.32 K/uL High 1.64-7.28 [facility] Comment on above: Performed By: #### L AB980 ####[facility] (DEFAULT)[address] [place] [address] WBC (Bld) [#/Vol] 9.16 10*3/uL Normal 3.99-11.19 [facility] Comment on above: Performed By: #### L AB980 ####[facility] (DEFAULT)[address] [place] [address] CHEM 7 (LYTES,BUN,CREA,GLUC) on 08-15-2021 Anion gap [Moles/Vol] 15 mmol/L Normal 7-17 [facility] Comment on above: Performed By: #### C RP, IPB, MGO, CHM7 ####[facility] (DEFAULT)[address] [facility] [place] [address] Chloride [Moles/Vol] 106 mmol/L Normal 98-108 [facility] Comment on above: Performed By: #### C RP, IPB, MGO, CHM7 ####[facility] (DEFAULT)[address] [place] [address] CO2 [Moles/Vol] 27 mmol/L Normal 22-30 [facility] Comment on above: Performed By: #### C RP, IPB, MGO, CHM7 ####[facility] (DEFAULT)[address] [place] [address] Creatinine [Mass/Vol] 0.68 mg/dL Normal 0.50-1.20 [facility] Comment on above: Performed By: #### C RP, IPB, MGO, CHM7 ####[facility] (DEFAULT)[address] [place] [address] EST GFR, >=60 Normal >=60 [facility] Comment on above: Performed By: #### C RP, IPB, MGO, CHM7 ####[facility] (DEFAULT)[address] [place] [address] EST GFR,Non >=60 Normal >=60 [facility] Comment on above: Performed By: #### C RP, IPB, MGO, CHM7 ####[facility] (DEFAULT)[address] [place] [address] Glucose [Mass/Vol] 132 mg/dL High 70-99 [facility] Comment on above: Performed By: #### C RP, IPB, MGO, CHM7 ####[facility] (DEFAULT)[address] [place] [address] Osmolality [Osmolality] 308 mosm/kg High 278-305 [facility] Comment on above: Performed By: #### C RP, IPB, MGO, CHM7 ####[facility] (DEFAULT)[address] [place] [address] Potassium [Moles/Vol] 4.9 mmol/L Normal 3.5-5.0 [facility] Comment on above: Performed By: #### C RP, IPB, MGO, CHM7 ####[facility] (DEFAULT)[address] [place] [address] Sodium [Moles/Vol] 143 mmol/L Normal 133-143 [facility] Comment on above: Performed By: #### C RP, IPB, MGO, CHM7 ####[facility] (DEFAULT)[address] [place] [address] Urea nitrogen [Mass/Vol] 30 mg/dL High 7-22 [facility] Comment on above: Performed By: #### C RP, IPB, MGO, CHM7 ####[facility] (DEFAULT)[address] [place] [address] Urea nitrogen/Creatinine [Mass ratio] 44 mg/mg Normal [facility] Comment on above: Performed By: #### C RP, IPB, MGO, CHM7 ####[facility] (DEFAULT)[address] [place] [address] MAGNESIUMon 08-15-2021 Magnesium [Mass/Vol] 2.4 mg/dL Normal 1.6-2.6 [facility] Comment on above: Performed By: #### C RP, IPB, MGO, CHM7 ####[facility] (DEFAULT)[address] [place] [address] PHOSPHATE, INORGANICon 08-15 Phosphorous 3.1 mg/dL Normal 2.2-4.6 [facility] Comment on above: Performed By: #### C RP, IPB, MGO, CHM7 ####[facility] (DEFAULT)[address] [place] [address] STREP PNEUMONIAE ANTIGEN, UR INEon 08-15-2021 Strep Pneumoniae Antigen,Urine Negative Normal Negative [facility] Comment on above: Performed By: #### P NEUMO ####[facility] (DEFAULT)[address] [place] [address] VANCOMYCIN LEVEL, TROUGH (HI E DRUG LEVEL)on 08-15-2021 Vancomycin, Trough 9.5 mcg/mL Low Therapeut ic Range: 10.0-20.0 mcg/mL [facility] Comment on above: Order Comment: Pleas e draw level at specified interval PRIOR to next dose. Performed By: #### V ANCTR ####[facility] (DEFAULT)[address] [place] [address] ABORH TYPE RECONFIRMATIONon 08-14-2021 ABO/RH(D) TYPE Positive Normal [facility] Comment on above: Performed By: #### T YPEC ####[facility] (DEFAULT)[address] [place] [address] B-TYPE NATRIURETIC PEPTIDE ( BRAIN)on 08-14-2021 Natriuretic peptide B (Bld) [Mass/Vol] 11 pg/mL Normal 0-100 [facility] Comment on above: Performed By: #### B ACCOUNTS EXECUTIVE ####[facility] (DEFAULT)[address] [place] [address], [place] [address] Natriuretic peptide B (Bld) [Mass/Vol] 8 pg/mL Normal 0-100 [facility] Comment on above: Performed By: #### L AB980, BNP ####[facility] (DEFAULT)[address] [place] [address] BETA HCG, QUAL, BLOODon 07-31 HCG (Qual) Serum Negative Normal Negative [facility] Comment on above: Performed By: #### B HCG ####[facility] (DEFAULT)[address] [place] [address] BLOOD CULTUREon 08-14-2021 Bacteria identified Cx Nom (Unsp spec) NO GROWTH DAY 5 OF 5 Normal [facility] Comment on above: Order Comment: 2 Bot tles (1 Set - consists of 1 Aerobic (blue) bottle and 1 Anaerobic (purple) bottle) -1st Peripheral DrawFor syringe method draw:If able to obtain adequate sample (20 ml) inoculate anaerobic bottle firstIf inadequate sample obtained (less than 20 ml) inoculate aerobic bottle firstFor vacutainer method draw: Fill aerobic bottle first, then anaerobic Performed By: #### B LDCULT ####[facility] (DEFAULT)[address] [place] [address] Bacteria identified Cx Nom (Unsp spec) NO GROWTH DAY 5 OF 5 Normal [facility] Comment on above: Order Comment: 2 Bot tles (1 Set - consists of 1 Aerobic (blue) bottle and 1 Anaerobic (purple) bottle) -1st Peripheral DrawFor syringe method draw:If able to obtain adequate sample (20 ml) inoculate anaerobic bottle firstIf inadequate sample obtained (less than 20 ml) inoculate aerobic bottle firstFor vacutainer method draw: Fill aerobic bottle first, then anaerobic Performed By: #### B LDCULT ####[facility] (DEFAULT)[address] [place] [address] C REACTIVE PROTEINon 021 CRP [Mass/Vol] 69.78 mg/L High <10.00 [facility] Comment on above: Performed By: #### L ABHSTI1, HFP, MGO, CKB, CRP, CHM7, IPB ####[facility] (DEFAULT)[address] [place] [address] CBC AND ELECTRONIC DIFFon Basophils (Bld) [#/Vol] 10*3/uL Normal 0.00-0.15 [facility] Comment on above: Performed By: #### L AB980, BNP ####[facility] (DEFAULT)[address] [place] [address] Basophils/100 WBC (Bld) 0.1 % Normal [facility] Comment on above: Performed By: #### L AB980, BNP ####[facility] (DEFAULT)[address] [place] [address], [place] [address] DIFF STATUS Electronic Differential Normal [facility] Comment on above: Performed By: #### L AB980, BNP ####[facility] (DEFAULT)[address] [place] [address] Eosinophils (Bld) [#/Vol] 0.06 10*3/uL Normal 0.00-0.42 [facility] Comment on above: Performed By: #### L AB980, BNP ####[facility] (DEFAULT)[address] [place] [address] Eosinophils/100 WBC (Bld) 0.4 % Normal [facility] Comment on above: Performed By: #### L AB980, BNP ####[facility] (DEFAULT)[address] [place] [address] Hematocrit (Bld) [Volume fraction] 39.9 % Normal 34.9-44.3 [facility] Comment on above: Performed By: #### L AB980, BNP ####[facility] (DEFAULT)[address] [place] [address] Hemoglobin (Bld) [Mass/Vol] 13.0 g/dL Normal 11.4-15.2 [facility] Comment on above: Performed By: #### L AB980, BNP ####[facility] (DEFAULT)[address] [place] [address], [place] [address] Immature Grans % 1.2 % Normal [facility] Comment on above: Performed By: #### L AB980, BNP ####[facility] (DEFAULT)[address] [place] [address] Immature Grans Absolute 0.19 K/uL High <=0.09 [facility] Comment on above: Performed By: #### L AB980, BNP ####[facility] (DEFAULT)[address] [place] [address] Lymphocytes (Bld) [#/Vol] 1.28 10*3/uL Normal 1.16-3.51 [facility] Comment on above: Performed By: #### L AB980, BNP ####[facility] (DEFAULT)[address] [place] [address] Lymphocytes/100 WBC (Bld) 7.9 % Normal [facility] Comment on above: Performed By: #### L AB980, BNP ####[facility] (DEFAULT)[address] [place] [address] MCV (RBC) [Entitic vol] 81.8 fL Normal 79.6-97.7 [facility] Comment on above: Performed By: #### L AB980, BNP ####[facility] (DEFAULT)[address] [facility] [place] [address] Mean Cell Hgb 26.6 pg Normal 25.9-33.9 [facility] Comment on above: Performed By: #### L AB980, BNP ####[facility] (DEFAULT)[address] [facility] [place] [address] Mean Cell Hgb Conc 32.6 g/dL Normal 31.4-35.9 [facility] Comment on above: Performed By: #### L AB980, BNP ####[facility] (DEFAULT)[address] [facility] [place] [address] Monocytes (Bld) [#/Vol] 0.67 10*3/uL Normal 0.22-0.87 [facility] Comment on above: Performed By: #### L AB980, BNP ####[facility] (DEFAULT)[address] [place] [address] Monocytes/100 WBC (Bld) 4.2 % Normal [facility] Comment on above: Performed By: #### L AB980, BNP ####[facility] (DEFAULT)[address] [facility] [place] [place] [address] Nucleated RBC 0.0 /100 WBC Normal <=0.2 [facility] Comment on above: Performed By: #### L AB980, BNP ####[facility] (DEFAULT)[address] [facility] [place] [place] [address] Platelet mean volume (Bld) [Entitic vol] 10.1 fL Normal 8.5-12.2 [facility] Comment on above: Performed By: #### L AB980, BNP ####[facility] (DEFAULT)[address] [facility] [place] [address] Platelets (Bld) [#/Vol] 322 10*3/uL Normal 150-393 [facility] Comment on above: Performed By: #### L AB980, BNP ####[facility] (DEFAULT)[address] [place] [address] RBC (Bld) [#/Vol] 4.88 10*6/uL Normal 3.91-5.04 [facility] Comment on above: Performed By: #### L AB980, BNP ####[facility] (DEFAULT)[address] [facility] [place] [address] RBC Distribution 12.8 % Normal 10.8-14.9 [facility] Comment on above: Performed By: #### L AB980, BNP ####[facility] (DEFAULT)[address] [facility] [place] [place] [address] Segs + Bands Auto 86.2 % Normal [facility] Comment on above: Performed By: #### L AB980, BNP ####[facility] (DEFAULT)[address] [facility] [place] [place] [address] Segs + Bands,Absolute Auto 13.89 K/uL High 1.64-7.28 [facility] Comment on above: Performed By: #### L AB980, BNP ####[facility] (DEFAULT)[address] [facility] [place] [place] [address] WBC (Bld) [#/Vol] 16.11 10*3/uL High 3.99-11.19 [facility] Comment on above: Performed By: #### L AB980, BNP ####[facility] (DEFAULT)[address] [place] [address] CHEM 7 (LYTES,BUN,CREA,GLUC) on 08-14-2021 Anion gap [Moles/Vol] 18 mmol/L High 7-17 [facility] Comment on above: Performed By: #### L ABHSTI1, HFP, MGO, CKB, CRP, CHM7, IPB ####[facility] (DEFAULT)[address] [place] [address] Chloride [Moles/Vol] 105 mmol/L Normal 98-108 [facility] Comment on above: Performed By: #### L ABHSTI1, HFP, MGO, CKB, CRP, CHM7, IPB ####[facility] (DEFAULT)[address] [place] [address] CO2 [Moles/Vol] 25 mmol/L Normal 22-30 [facility] Comment on above: Performed By: #### L ABHSTI1, HFP, MGO, CKB, CRP, CHM7, IPB ####[facility] (DEFAULT)[address] [place] [address] Creatinine [Mass/Vol] 0.86 mg/dL Normal 0.50-1.20 [facility] Comment on above: Performed By: #### L ABHSTI1, HFP, MGO, CKB, CRP, CHM7, IPB ####[facility] (DEFAULT)[address] [place] [address], [place] [address] EST GFR, >=60 Normal >=60 [facility] Comment on above: Performed By: #### L ABHSTI1, HFP, MGO, CKB, CRP, CHM7, IPB ####[facility] (DEFAULT)[address] [place] [address] EST GFR,Non >=60 Normal >=60 [facility] Comment on above: Performed By: #### L ABHSTI1, HFP, MGO, CKB, CRP, CHM7, IPB ####[facility] (DEFAULT)[address] [place] [address] Glucose [Mass/Vol] 115 mg/dL High 70-99 [facility] Comment on above: Performed By: #### L ABHSTI1, HFP, MGO, CKB, CRP, CHM7, IPB ####[facility] (DEFAULT)[address] [place] [address] Osmolality [Osmolality] 308 mosm/kg High 278-305 [facility] Comment on above: Performed By: #### L ABHSTI1, HFP, MGO, CKB, CRP, CHM7, IPB ####[facility] (DEFAULT)[address] [place] [address] Potassium [Moles/Vol] 4.5 mmol/L Normal 3.5-5.0 [facility] Comment on above: Performed By: #### L ABHSTI1, HFP, MGO, CKB, CRP, CHM7, IPB ####[facility] (DEFAULT)[address] [place] [address] Sodium [Moles/Vol] 143 mmol/L Normal 133-143 [facility] Comment on above: Performed By: #### L ABHSTI1, HFP, MGO, CKB, CRP, CHM7, IPB ####[facility] (DEFAULT)[address] [facility] [place] [address] Urea nitrogen [Mass/Vol] 34 mg/dL High 7-22 [facility] Comment on above: Performed By: #### L ABHSTI1, HFP, MGO, CKB, CRP, CHM7, IPB ####[facility] (DEFAULT)[address] [place] [address] Urea nitrogen/Creatinine [Mass ratio] 40 mg/mg Normal [facility] Comment on above: Performed By: #### L ABHSTI1, HFP, MGO, CKB, CRP, CHM7, IPB ####[facility] (DEFAULT)[address] [facility] [place] [place] [address] CKon 08-14-2021 CK [Catalytic activity/Vol] 87 U/L Normal 30-184 [facility] Comment on above: Order Comment: While on Propofol. Performed By: #### L ABHSTI1, HFP, MGO, CKB, CRP, CHM7, IPB ####[facility] (DEFAULT)[address] [facility] [place] [place] [address] D-DIMER,QUANTITATIVEon 08-14 D-Dimer, High Sensitivity 5.60 mcg/mL FEU High <0.50 [facility] Comment on above: Result Comment: The D-Dimer assay is intended for use in conjuction with a clinical pretest probability (PTP) assessment model to exclude pulmonary embolism (PE) and as an aid in the diagnosis of Deep Vein Thrombosis (DVT) in outpatients suspected of PE or DVT. For the assay in use at [facility] ([facility]), a cutoff of <0.50 mcg/mL has a Negative Predictive Value of 99.7% for exclusion of DVT in low and moderate PTP patients. Performed By: #### H SDDI, PTPTT ####[facility] (DEFAULT)[address] [place] [address] HCG QUALITATIVE, URINEon Beta HCG ( test) Ql (U) Negative Normal Negative [facility] Comment on above: Performed By: #### U HCG ####[facility] (DEFAULT)[address] [place] [address] HEPATIC FUNCTION PANELon Albumin [Mass/Vol] 3.6 g/dL Normal 3.5-5.0 [facility] Comment on above: Performed By: #### L ABHSTI1, HFP, MGO, CKB, CRP, CHM7, IPB ####[facility] (DEFAULT)[address] [facility] [place] [place] [address] ALP [Catalytic activity/Vol] 45 U/L Normal 32-126 [facility] Comment on above: Performed By: #### L ABHSTI1, HFP, MGO, CKB, CRP, CHM7, IPB ####[facility] (DEFAULT)[address] [place] [address] ALT [Catalytic activity/Vol] 33 U/L Normal 9-48 [facility] Comment on above: Performed By: #### L ABHSTI1, HFP, MGO, CKB, CRP, CHM7, IPB ####[facility] (DEFAULT)[address] [facility] [place] [address] AST [Catalytic activity/Vol] 24 U/L Normal 14-40 [facility] Comment on above: Performed By: #### L ABHSTI1, HFP, MGO, CKB, CRP, CHM7, IPB ####[facility] (DEFAULT)[address] [facility] [place] [address] Bilirubin [Mass/Vol] 1.3 mg/dL Normal <1.5 [facility] Comment on above: Performed By: #### L ABHSTI1, HFP, MGO, CKB, CRP, CHM7, IPB ####[facility] (DEFAULT)[address] [facility] [place] [address] Bilirubin.indirect [Mass/Vol] 0.3 mg/dL High <0.3 [facility] Comment on above: Performed By: #### L ABHSTI1, HFP, MGO, CKB, CRP, CHM7, IPB ####[facility] (DEFAULT)[address] [facility] [place] [address] Protein [Mass/Vol] 7.3 g/dL Normal 6.4-8.3 [facility] Comment on above: Performed By: #### L ABHSTI1, HFP, MGO, CKB, CRP, CHM7, IPB ####[facility] (DEFAULT)[address] [facility] [place] [address] HIGH SENSITIVITY TROPONIN I - SINGLE ORDERon 08-14-2021 hs-Troponin I 3 ng/L Normal <34 [facility] Comment on above: Order Comment: Acute Coronary Syndrome (ACS): Initial Evaluation and Management:[email or web address]/Sanjuanita garzon/Acute%20Coronary%20Syndrome.pdf#search=troponin Performed By: #### P ROCAL, LABHSTI1, TRIG ####[facility] (DEFAULT)[address] [place] [address] Performed By: #### L ABHSTI1, HFP, MGO, CKB, CRP, CHM7, IPB ####[facility] (DEFAULT)[address] [place] [address] LEGIONELLA URINARY AGon 07-31 Legionella Urinary Antigen Negative Normal Negative [facility] Comment on above: Performed By: #### L EGION ####[facility] (DEFAULT)[address] [place] [address] LOWER RESPIRATORY CULTURE, B ACTERIALon 08-14-2021 Bacteria identified Cx Nom (Unsp spec) NO GROWTH DAY 2 OF 2 Normal [facility] Comment on above: Performed By: #### R ES ####[facility] (DEFAULT)[address] [place] [address] Microscopic observation Gram stain Nom (Unsp spec) Normal [facility] Comment on above: Result Comment: Neut rophils, ModerateLocal materials presentSpecimen is of optimum quality Performed By: #### R ES ####[facility] (DEFAULT)[address] [place] [address] MAGNESIUMon 08-14-2021 Magnesium [Mass/Vol] 2.5 mg/dL Normal 1.6-2.6 [facility] Comment on above: Performed By: #### L ABHSTI1, HFP, MGO, CKB, CRP, CHM7, IPB ####[facility] (DEFAULT)[address] [place] [address] NOVEL CORONAVIRUS PCRon 07-31 SARS-CoV-2 (COVID-19) RNA GIRISH+probe Ql (Unsp spec) Detected Abnormal NOT DETECTED [facility] Comment on above: Order Comment: Viral transport media or BAL specimen - Collection must be done while wearing N-95 mask, eye protection, gown and gloves. Please label ALL specimens as 2019-nCoV rule out and deliver by hand.This test was performed using performed using real time PCR for the qualitative detection of SARS-CoV-2 nucleic acid and has been approved as Emergency Use Authorization (EUA) for the qualitative detection of SARS-CoV-2 nucleic acid. Result Comment: [facility] CLINICAL LABORATORYENHANCED CONTACT, AND DROPLET ISOLATION IS REQUIRED FOR INPATIENTS WITH SARS-CoV-2. Performed By: #### L [id number] ####[facility] (DEFAULT)[address] [place] [address] PHOSPHATE, INORGANICon 08-14 Phosphorous 3.1 mg/dL Normal 2.2-4.6 [facility] Comment on above: Performed By: #### L ABHSTI1, HFP, MGO, CKB, CRP, CHM7, IPB ####[facility] (DEFAULT)[address] [place] [address] PROCALCITONINon 08-14-2021 Procalcitonin 0.10 ng/mL Normal <=0.50 [facility] Comment on above: Result Comment: Proc alcitonin is an FDA-approved assay to help manage antibiotic treatment in patients with sepsis/septic shock and lower respiratory tract infections. Specifically, trending procalcitonin in these situations can be used to reduce the duration of antibiotics. Please refer to the Procalcitonin Guide on the Antimicrobial Stewardship Webpage for more guidance on how to use and trend procalcitonin in various clinical settings. [email or web address] [email or web address].aspx?sourcedoc=/departments/Pharmacy/Documents/GDLProca lcitonin.docx&action=default&DefaultItemOpen=1Two common cutoffs associated with bacterial infections are as follows.Respiratory tract infections: >0.25 ng/mLSepsis/septic shock: >0.5 ng/mLProcalcitonin should not be used alone as a diagnostic tool, however. All procalcitonin results should be interpreted in association with the patients clinical condition and all laboratory findings. Performed By: #### P SAMANTA IRIZARRY1, TRIG ####[facility] (DEFAULT)[address] [place] [address] PT,INR,PTTon 08-14-2021 aPTT Coag (Bld) [Time] 24.9 s Normal 24.0-34.3 [facility] Comment on above: Performed By: #### H SDDI, PTPTT ####[facility] (DEFAULT)[address] [place] [address] INR Coag (PPP) [Relative time] 1.2 {INR} High 0.9-1.1 [facility] Comment on above: Performed By: #### H SDDI, PTPTT ####[facility] (DEFAULT)[address] [place] [address] PT Coag (PPP) [Time] 14.5 s High 11.9-14.2 [facility] Comment on above: Performed By: #### H SDDI, PTPTT ####[facility] (DEFAULT)[address] [place] [address] TRIGLYCERIDEon 08-14-2021 Triglyceride [Mass/Vol] 274 mg/dL High <150 [facility] Comment on above: Result Comment: [<15 0 mg/dL: Desirable][150-199 mg/dL: Borderline][200-499 mg/dL: High][>500 mg/dL: Very High] Performed By: #### P SAMANTA IRIZARRY1, TRIG ####[facility] (DEFAULT)[address] [place] [address] TYPE AND SCREENon 10-15-2021 ABO/RH(D) TYPE Positive Normal [facility] Comment on above: Performed By: #### X M ####[facility] (DEFAULT)[address] [place] [address] URINALYSIS REFLEX TO CULTURE PERFORMABLEon 08-14-2021 Appearance (U) Clear Normal Clear [facility] Comment on above: Order Comment: For i ndwelling catheters, specimen collection is acceptable on catheter day 1 and 2 only. ? Performed By: #### U [id number] ####[facility] (DEFAULT)[address] [facility] [place] [place] [address] Bacteria ABSENT Normal ABSENT [facility] Comment on above: Order Comment: For i ndwelling catheters, specimen collection is acceptable on catheter day 1 and 2 only. ? Performed By: #### U [id number] ####[facility] (DEFAULT)[address] [place], [place] [address], [place] [address] Blood Urine Large Abnormal Negative [facility] Comment on above: Order Comment: For i ndwelling catheters, specimen collection is acceptable on catheter day 1 and 2 only. ? Performed By: #### U [id number] ####[facility] (DEFAULT)[address] [facility] [place] [address] Color (U) Yellow Normal Yellow [facility] Comment on above: Order Comment: For i ndwelling catheters, specimen collection is acceptable on catheter day 1 and 2 only. ? Performed By: #### U [id number] ####[facility] (DEFAULT)[address] [facility] [place] [address] Glucose Ql (U) Negative Normal Negative [facility] Comment on above: Order Comment: For i ndwelling catheters, specimen collection is acceptable on catheter day 1 and 2 only. ? Performed By: #### U [id number] ####[facility] (DEFAULT)[address] [facility] [place] [address] Ketones Ql (U) Negative Normal Negative [facility] Comment on above: Order Comment: For i ndwelling catheters, specimen collection is acceptable on catheter day 1 and 2 only. ? Performed By: #### U [id number] ####[facility] (DEFAULT)[address] [facility] [place] [place] [address] Leukocyte esterase Test strip Ql (U) Trace Abnormal Negative [facility] Comment on above: Order Comment: For i ndwelling catheters, specimen collection is acceptable on catheter day 1 and 2 only. ? Performed By: #### U [id number] ####[facility] (DEFAULT)[address] [facility] [place] [place] [address] Nitrites Urine Negative Normal Negative [facility] Comment on above: Order Comment: For i ndwelling catheters, specimen collection is acceptable on catheter day 1 and 2 only. ? Performed By: #### U [id number] ####[facility] (DEFAULT)[address] [facility] [place] [address] pH (U) 6.0 [pH] Normal 5.0-7.0 [facility] Comment on above: Order Comment: For i ndwelling catheters, specimen collection is acceptable on catheter day 1 and 2 only. ? Performed By: #### U [id number] ####[facility] (DEFAULT)[address] [place] [address], [place] [address] Protein Urine 100 mg/dL Abnormal Negative [facility] Comment on above: Order Comment: For i ndwelling catheters, specimen collection is acceptable on catheter day 1 and 2 only. ? Performed By: #### U [id number] ####[facility] (DEFAULT)[address] [place] [address], [place] [address] RBC Urine 10-20 Abnormal 0-2 [facility] Comment on above: Order Comment: For i ndwelling catheters, specimen collection is acceptable on catheter day 1 and 2 only. ? Performed By: #### U [id number] ####[facility] (DEFAULT)[address] [place] [address], [place] [address] Specific [place] Urine 1.034 Normal 1.001-1.035 [facility] Comment on above: Order Comment: For i ndwelling catheters, specimen collection is acceptable on catheter day 1 and 2 only. ? Performed By: #### U [id number] ####[facility] (DEFAULT)[address] [place] [address] Squamous/Epithelial Cells ABSENT Normal 1/hpf = 1+, 2-5/hpf = 2+, 0/hpf = 0+, ABSENT [facility] Comment on above: Order Comment: For i ndwelling catheters, specimen collection is acceptable on catheter day 1 and 2 only. ? Performed By: #### U [id number] ####[facility] (DEFAULT)[address] [place] [address] Urobilinogen Urine 1.0 E.U./dL Normal 0.2-1.0 [facility] Comment on above: Order Comment: For i ndwelling catheters, specimen collection is acceptable on catheter day 1 and 2 only. ? Performed By: #### U [id number] ####[facility] (DEFAULT)[address] [place] [address], [place] [address] WBC Urine 0-5 Normal 0-5 [facility] Comment on above: Order Comment: For i ndwelling catheters, specimen collection is acceptable on catheter day 1 and 2 only. ? Performed By: #### U [id number] ####[facility] (DEFAULT)[address] [place] [address] XR ABDOMEN 1 VIEW PORTABLEon 08-14-2021 XR ABDOMEN 1 VIEW PORTABLE Normal [facility] XR CHEST PORTABLEon 08-14-20 XR CHEST PORTABLE Normal [facility] XR CHEST PORTABLE Normal [facility] XR CHEST PA/APon 08-13-2021 XR CHEST PA/AP EXAMINATION: XR CHEST PA/AP 08/13/2021 08/13/2021 11:12 am HISTORY: Dx: U07.1 (Pneumonia due to COVID-19 virus) intubation and B/L CT placement COMPARISON: Chest radiograph from 08/13/2021 TECHNIQUE: Single AP radiograph of the chest FINDINGS: r endotracheal tube tip 4.6 cm from the prabhu. Enteric tube tip and side port at the stomach. Left-sided PICC tip at the distal superior vena cava. Bilateral thoracostomy tubes are in place. Pneumomediastinum. No discrete right pneumothorax. Left pneumothorax measures 0.6 cm (previously approximately 0.6 cm). Subcutaneous emphysema. Diffuse ground-glass pulmonary opacities. IMPRESSION: 1. Medical support devices as above. 2. The previously noted right pneumothorax appears resolved. 3. Small left apical pneumothorax similar to prior. 4. Pneumomediastinum. 5. Unchanged diffuse ground-glass airspace disease consider multifocal pneumonia, pulmonary edema, and/or ARDS. Workstation ID: [id number] Dictated by: SPENSER ARORA on [facility] Aug 13, 2021 3:07:19 PM EDT Transcribed by: SPENSER ARORA on [facility] Aug 13, 2021 3:07:19 PM EDT Finalized by: SPENSER ARORA on [place] Aug 13, 2021 3:07:19 PM EDT [facility] Comment on above: Order Comment: Injur y/Trauma or Illness?:Illness/Other How long have you had these symptoms (acute/chronic)?:Acute Reason for exam?:B.L CHEST TUBE PLACEMENT, INTUBATION, AND OG TUBE PLACEMENT History of cancer?:u Surgeries, chemotherapy, or radiation?:u Type of Exam?:Initial Additional signs and symptoms?:N XR CHEST PA/AP EXAMINATION: XR CHEST PA/AP 08/13/2021 08/13/2021 9:34 am HISTORY: Dx: U07.1 (Pneumonia due to COVID-19 virus) SOB COMPARISON: Chest radiograph from 08/13/2021 TECHNIQUE: Single AP radiograph of the chest FINDINGS: Pneumomediastinum. Air within the neck soft tissues. Left-sided PICC tip over the distal superior vena cava. A right-sided pneumothorax is again noted measuring approximately 1.0 cm to the lateral pleural edge. A left pneumothorax measures approximately 0.6 cm to the pleural edge. Multifocal bilateral ground-glass opacities. Increased subcutaneous emphysema at the neck and left lateral chest wall. IMPRESSION: Pneumomediastinum and bilateral pneumothoraces. Given overlying subcutaneous air these appear similar. Increased subcutaneous emphysema at the neck. Multifocal ground-glass opacities unchanged. Workstation ID: [id number] Dictated by: SPENSER ARORA on [facility] Aug 13, 2021 10:04:03 AM EDT Transcribed by: SPENSER ARORA on [facility] Aug 13, 2021 10:04:03 AM EDT Finalized by: SPENSER ARORA on [facility] Aug 13, 2021 10:04:03 AM EDT [facility] Comment on above: Order Comment: Injur y/Trauma or Illness?:Illness/Other How long have you had these symptoms (acute/chronic)?:Acute Reason for exam?:worsening SOB History of cancer?:u Surgeries, chemotherapy, or radiation?:u Type of Exam?:Subsequent/Follow-up Additional signs and symptoms?:n XR CHEST PA/AP EXAMINATION: XR CHEST PA/AP 08/13/2021 08/13/2021 8:15 am HISTORY: Dx: U07.1 (Pneumonia due to COVID-19 virus) pleuritic COMPARISON: Chest radiograph from 08/12/2020 TECHNIQUE: Single AP radiograph of the chest FINDINGS: Left-sided PICC tip at the atrial caval junction. Cardiac size is mildly enlarged unchanged. Pneumomediastinum air within the subcutaneous tissues of the neck. Diffuse ground-glass opacities bilaterally. A right pneumothorax is suggested measuring approximately 0.8 cm possible left pneumothorax 0.7 cm. No fracture. IMPRESSION: 1. Small right and possible small left apical pneumothorax. 2. New pneumomediastinum with air in the subcutaneous tissues. 3. Medical support devices as above. 4. Diffuse bilateral ground-glass opacities. Consider multifocal pneumonia, pulmonary edema, and ARDS. Critical results were called by Dr. Neelam Arora to Dr. ISABELA SANDERS on 08/13/2021 at 08:46. Workstation ID: [id number] Dictated by: SPENSER ARORA on [facility] Aug 13, 2021 8:52:05 AM EDT Transcribed by: SPENSER ARORA on [facility] Aug 13, 2021 8:52:05 AM EDT Finalized by: SPENSER ARORA on [facility] Aug 13, 2021 8:52:05 AM EDT [facility] Comment on above: Order Comment: Injur y/Trauma or Illness?:Illness/Other How long have you had these symptoms (acute/chronic)?:Acute Reason for exam?:pleuritic, RECENT HX OF COVID 19 History of cancer?:u Surgeries, chemotherapy, or radiation?:u Type of Exam?:Subsequent/Follow-up Additional signs and symptoms?:N XR CHEST PA/APon 08-12-2021 XR CHEST PA/AP EXAMINATION: XR CHEST PA/AP 08/12/2021 12:45 am HISTORY: ORDERING SYSTEM PROVIDED HISTORY: Hypoxemia, TECHNOLOGIST PROVIDED HISTORY: Illness/Other Reason for exam: Hypoxemia Cancer History: u Surgery, RadiationHistory: u Encounter Type: Initial Additional signs and symptoms: n ORDERING SYSTEM PROVIDED DIAGNOSIS CODES: U07.1 Pneumonia due to COVID-19 virus J12.82 Pneumonia due to COVID-19 virus R55 Near syncope K59.00 Constipation, unspecified constipation type J96.01 Acute respiratory failure with hypoxia (HCC) COMPARISON: Chest radiograph dated 08/10/2021. FINDINGS: One view of the chest was obtained. The cardiac silhouette is stable in size. There are mixed bilateral interstitial and airspace opacities. There is no significant pneumothorax. There are small bilateral pleural effusions. No acute osseous abnormality is seen. IMPRESSION: 1. Mixed bilateral interstitial and airspace opacities which could represent edema and/or multifocal pneumonia. 2. Small bilateral pleural effusions. [facility] Workstation ID: [id number] Dictated by: HALINA COTE on TueAug 12, 2021 4:45:50 AM EDT Transcribed by: CHRISTIANO CHAN on TueAug 12, 2021 4:47:27 AM EDT Finalized by: HALINA COTE on TueAug 12, 2021 5:09:01 AM EDT Normal [facility] Comment on above: Order Comment: Injur y/Trauma or Illness?:Illness/Other How long have you had these symptoms (acute/chronic)?:Acute Reason for exam?:Hypoxemia History of cancer?:u Surgeries, chemotherapy, or radiation?:u Type of Exam?:Initial Additional signs and symptoms?:n XR CHEST PA/APon 08-10-2021 XR CHEST PA/AP EXAMINATION: XR CHEST PA/AP 08/10/2021 9:30 am HISTORY: ORDERING SYSTEM PROVIDED HISTORY: fever, TECHNOLOGIST PROVIDED HISTORY: Illness/Other Reason for exam: fever, SOB, covid positive, recent hx of PNA Cancer History: u Surgery, RadiationHistory: u Encounter Type: Subsequent/Follow-up Additional signs and symptoms: n ORDERING SYSTEM PROVIDED DIAGNOSIS CODES: U07.1 Pneumonia due to COVID-19 virus J12.82 Pneumonia due to COVID-19 virus R55 Near syncope K59.00 Constipation, unspecified constipation type J96.01 Acute respiratory failure with hypoxia (HCC) COMPARISON: 08/05/2021. FINDINGS: There is diffuse airspace disease consistent with pneumonia. Overall slightly improving aeration. Heart size is stable. There are low lung volumes. No pneumothorax or significant amount of pleural fluid is seen. IMPRESSION: Persistent but improving pneumonias. [facility] Workstation ID: [id number] Dictated by: KAMINI GARZA on TueAug 10, 2021 9:46:39 AM EDT Transcribed by: BECKA AMATO on TueAug 10, 2021 10:15:52 AM EDT Finalized by: KAMINI GARZA on TueAug 11, 2021 4:03:51 PM EDT [facility] Comment on above: Order Comment: Injur y/Trauma or Illness?:Illness/Other How long have you had these symptoms (acute/chronic)?:Acute Reason for exam?:fever, SOB, covid positive, recent hx of PNA History of cancer?:u Surgeries, chemotherapy, or radiation?:u Type of Exam?:Subsequent/Follow-up Additional signs and symptoms?:n XR CHEST PA/APon 08-05-2021 XR CHEST PA/AP EXAMINATION: XR CHEST PA/AP HISTORY: ORDERING SYSTEM PROVIDED HISTORY: increased shortness of breath, TECHNOLOGIST PROVIDED HISTORY: Illness/Other Reason for exam: sob Cancer History: u Surgery, RadiationHistory: u Encounter Type: Initial Additional signs and symptoms: n ORDERING SYSTEM PROVIDED DIAGNOSIS CODES: U07.1 Pneumonia due to COVID-19 virus J12.82 Pneumonia due to COVID-19 virus COMPARISON: 08/03/2021. FINDINGS: Cardiomediastinal contour is within normal limits. Worsening bilateral multifocal airspace opacities appearing more consolidative on the current examination. No pleural effusion or pneumothorax. Osseous structures are intact. IMPRESSION: 1. Worsening bilateral multifocal airspace opacities which now appear more consolidative. Findings compatible with worsening multifocal pneumonia. [facility] Workstation ID: [id number] Dictated by: STEVEN SIDHU on TueAug 05, 2021 4:14:54 AM EDT Transcribed by: MARIA FERNANDA PARKS on TueAug 05, 2021 4:15:57 AM EDT Finalized by: STEVEN SIDHU on TueAug 05, 2021 6:52:27 AM EDT [facility] Comment on above: Order Comment: Injur y/Trauma or Illness?:Illness/Other How long have you had these symptoms (acute/chronic)?:Acute Reason for exam?:sob History of cancer?:u Surgeries, chemotherapy, or radiation?:u Type of Exam?:Initial Additional signs and symptoms?:n XR CHEST PA/APon 08-03-2021 XR CHEST PA/AP EXAMINATION: XR CHEST PA/AP HISTORY: ORDERING SYSTEM PROVIDED HISTORY: Suspected COVID-19, TECHNOLOGIST PROVIDED HISTORY: Illness/Other Reason for exam: Suspected COVID-19, cough Cancer History: u Surgery, RadiationHistory: u Encounter Type: Initial Additional signs and symptoms: ORDERING SYSTEM PROVIDED DIAGNOSIS CODES: U07.1 Pneumonia due to COVID-19 virus J12.82 Pneumonia due to COVID-19 virus COMPARISON: None. TECHNIQUE: AP upright chest radiograph performed. FINDINGS: The trachea is midline. The heart size is magnified. There is moderate elevation of the right hemidiaphragm. There are patchy opacities suggesting infiltrates within the mid and lower chest bilaterally. There is no pleural effusion. There is no pulmonary vascular congestion. There is no pneumothorax. There is no osseous abnormality. IMPRESSION: There is moderate elevation of the right hemidiaphragm. There are patchy opacities suggesting infiltrates within the mid and lower chest bilaterally. Follow-up chest radiographs are recommended to confirm complete resolution. Workstation ID: [id number] Dictated by: RACHEL SAEED on TueAug 03, 2021 5:24:39 PM EDT Transcribed by: RACHEL SAEED on TueAug 03, 2021 5:24:39 PM EDT Finalized by: RACHEL SAEED on TueAug 03, 2021 5:24:39 PM EDT [facility] Comment on above: Order Comment: Injur y/Trauma or Illness?:Illness/Other How long have you had these symptoms (acute/chronic)?:Acute Reason for exam?:Suspected COVID-19, cough History of cancer?:u Surgeries, chemotherapy, or radiation?:u Type of Exam?:Initial Additional signs and symptoms?: .Auto Diffon 07-23-2021 Basophil, Absolute 0.00 10 3/mcL Normal 0.00-0.19 [facility] ([place]) Comment on above: Performed By: #### C BC, ADIFF, ANEU, DIFF, MORPH, BMP, MONO #### [address] [address] #### GFR #### [address] [address] Basophils/100 WBC (Bld) 0.6 % Normal 0.0-2.5 Replaced By [facility] ([place]) Comment on above: Performed By: #### C BC, ADIFF, ANEU, DIFF, MORPH, BMP, MONO #### [place] [address] #### GFR #### [address] [address] Eosinophil, Absolute 0.00 10 3/mcL Normal 0.00-0.40 A [facility] ([place]) Comment on above: Performed By: #### C BC, ADIFF, ANEU, DIFF, MORPH, BMP, MONO #### [place] [address] #### GFR #### [address] [address] Eosinophils/100 WBC (Bld) 0.1 % Normal 0.0-7.0 Replaced By [facility] ([place]) Comment on above: Performed By: #### C BC, ADIFF, ANEU, DIFF, MORPH, BMP, MONO #### [place] [address] #### GFR #### [address] [address] Lymphocyte, Absolute 3.80 10 3/mcL Normal 0.77-3.85 A [facility] ([place]) Comment on above: Performed By: #### C BC, ADIFF, ANEU, DIFF, MORPH, BMP, MONO #### [place] [address] #### GFR #### [address] [address] Lymphocytes/100 WBC (Bld) 47.6 % Normal 10.0-50.0 Replaced By [facility] ([place]) Comment on above: Performed By: #### C BC, ADIFF, ANEU, DIFF, MORPH, BMP, MONO #### [address] [address] #### GFR #### [address] [address] Monocyte, Absolute 0.30 10 3/mcL Normal 0.15-1.00 [facility] ([place]) Comment on above: Performed By: #### C BC, ADIFF, ANEU, DIFF, MORPH, BMP, MONO #### [address] [address] #### GFR #### [address] [address] Monocytes/100 WBC (Bld) 3.8 % Normal 1.7-13.0 Replaced By [facility] ([place]) Comment on above: Performed By: #### C BC, ADIFF, ANEU, DIFF, MORPH, BMP, MONO #### [address] [address] #### GFR #### [address] [address] Neutrophils/100 WBC (Bld) 47.9 % Normal 37.0-80.0 Replaced By [facility] ([place]) Comment on above: Performed By: #### C BC, ADIFF, ANEU, DIFF, MORPH, BMP, MONO #### [address] [address] #### GFR #### [address] [address] .GFRon 07-23-2021 GFR 114 ml/min/1.73sqm Normal Replaced By [facility] ([place]) Comment on above: Result Comment: GFR Population mean for , Non- Americans Ages 20-29 = 116 mL/min/1.73 sq.m. Ages 30-39 = 107 mL/min/1.73 sq.m. Ages 40-49 = 99 mL/min/1.73 sq.m. Ages 50-59 = 93 mL/min/1.73 sq.m. Ages 60-69 = 85 mL/min/1.73 sq.m. Ages 70+ = 75 mL/min/1.73 sq.m. Chronic Kidney Disease: Less than 60 mL/min/1.73 square meters End Stage Renal Disease: Less than 15 mL/min/1.73 square meters Performed By: #### C BC, ADIFF, ANEU, DIFF, MORPH, BMP, MONO #### [address] [address] #### GFR #### [address] [address] GFR Non- 94 ml/min/1.73sqm Normal Replaced By [facility] ([place] Comment on above: Result Comment: GFR Population mean for , Non- Americans Ages 20-29 = 116 mL/min/1.73 sq.m. Ages 30-39 = 107 mL/min/1.73 sq.m. Ages 40-49 = 99 mL/min/1.73 sq.m. Ages 50-59 = 93 mL/min/1.73 sq.m. Ages 60-69 = 85 mL/min/1.73 sq.m. Ages 70+ = 75 mL/min/1.73 sq.m. Chronic Kidney Disease: Less than 60 mL/min/1.73 square meters End Stage Renal Disease: Less than 15 mL/min/1.73 square meters Performed By: #### C BC, ADIFF, ANEU, DIFF, MORPH, BMP, MONO #### [address] [address] #### GFR #### [address] [address] .Manual Diffon 07-23-2021 Atypical Lymphs 15.0 % High 0.0-5.0 Replaced By [facility] ([place] Comment on above: Performed By: #### C BC, ADIFF, ANEU, DIFF, MORPH, BMP, MONO #### [address] [address] #### GFR #### [address] [address] Basophil %, Manual 0.0 % Normal 0.0-2.5 [facility] ([place]) Comment on above: Performed By: #### C BC, ADIFF, ANEU, DIFF, MORPH, BMP, MONO #### [address] [address] #### GFR #### [address] [address] Eosinophil %, Manual 0.0 % Normal 0.0-7.0 [facility] ([place]) Comment on above: Performed By: #### C BC, ADIFF, ANEU, DIFF, MORPH, BMP, MONO #### [address] [address] #### GFR #### [address] [address] Lymphocyte %, Manual 33.0 % Normal 10.0-50.0 [facility] ([place]) Comment on above: Performed By: #### C BC, ADIFF, ANEU, DIFF, MORPH, BMP, MONO #### [address] [address] #### GFR #### [place] [address] Monocyte %, Manual 0.0 % Low 1.7-13.0 [facility] ([place]) Comment on above: Performed By: #### C BC, ADIFF, ANEU, DIFF, MORPH, BMP, MONO #### [place] [address] #### GFR #### [address] [address] Neutrophil %, Manual 52.0 % Normal 37.0-80.0 [facility] ([place]) Comment on above: Performed By: #### C BC, ADIFF, ANEU, DIFF, MORPH, BMP, MONO #### [address] [address] #### GFR #### [address] [address] .Morphon 07-23-2021 Platelet Estimate Normal Normal Replaced By [facility] ([place]) Comment on above: Performed By: #### C BC, ADIFF, ANEU, DIFF, MORPH, BMP, MONO #### [place] [address] #### GFR #### [place] [address] RBC morphology finding Nom (Bld) Normal Normal Replaced By [facility] ([place]) Comment on above: Performed By: #### C BC, ADIFF, ANEU, DIFF, MORPH, BMP, MONO #### [address] [address] #### GFR #### [address] [address] .NEUABSon 07-23-2021 Neutrophil, Absolute 3.80 10 3/mcL Normal 2.85-6.16 A [facility] ([place]) Comment on above: Performed By: #### C BC, ADIFF, ANEU, DIFF, MORPH, BMP, MONO #### [place] [address] #### GFR #### [place] [address] BMPon 07-23-2021 BUN/Creatinine Ratio 18 ratio Normal 7-27 [facility] ([place]) Comment on above: Performed By: #### C BC, ADIFF, ANEU, DIFF, MORPH, BMP, MONO #### [place] [address] #### GFR #### [place] [address] Calcium [Mass/Vol] 8.5 mg/dL Normal 8.4-10.2 [facility] ([place]) Comment on above: Performed By: #### C BC, ADIFF, ANEU, DIFF, MORPH, BMP, MONO #### [place] [address] #### GFR #### [place] [address] Chloride [Moles/Vol] 103 mmol/L Normal 98-107 [facility] ([place]) Comment on above: Performed By: #### C BC, ADIFF, ANEU, DIFF, MORPH, BMP, MONO #### [address] [address] #### GFR #### [place] [address] CO2 [Moles/Vol] 25 mmol/L Normal 22-29 Replaced By [facility] ([place] Comment on above: Performed By: #### C BC, ADIFF, ANEU, DIFF, MORPH, BMP, MONO #### [address] [address] #### GFR #### [address] [address] Creatinine [Mass/Vol] 0.77 mg/dL Normal 0.55-1.02 [facility] ([place]) Comment on above: Performed By: #### C BC, ADIFF, ANEU, DIFF, MORPH, BMP, MONO #### [address] [address] #### GFR #### [address] [address] Electrolyte Balance 12.0 mEq/L [facility] ([place] Comment on above: Performed By: #### C BC, ADIFF, ANEU, DIFF, MORPH, BMP, MONO #### [address] [address] #### GFR #### [address] [address] Glucose [Mass/Vol] 148 mg/dL High 70-105 [facility] ([place]) Comment on above: Performed By: #### C BC, ADIFF, ANEU, DIFF, MORPH, BMP, MONO #### [address] [address] #### GFR #### [address] [address] Potassium [Moles/Vol] 4.8 mmol/L Normal 3.5-5.1 [facility] ([place]) Comment on above: Performed By: #### C BC, ADIFF, ANEU, DIFF, MORPH, BMP, MONO #### [address] [address] #### GFR #### [address] [address] Sodium [Moles/Vol] 140 mmol/L Normal 136-145 [facility] ([place]) Comment on above: Performed By: #### C BC, ADIFF, ANEU, DIFF, MORPH, BMP, MONO #### [address] [address] #### GFR #### [address] [address] Urea nitrogen [Mass/Vol] 14 mg/dL Normal 7-18 Replaced By [facility] ([place] Comment on above: Performed By: #### C BC, ADIFF, ANEU, DIFF, MORPH, BMP, MONO #### [address] [address] #### GFR #### [place] [address] CBCon 07-23-2021 Erythrocyte distribution width (RBC) [Ratio] 13.5 % Normal 11.5-14.5 Replaced By [facility] ([place]) Comment on above: Performed By: #### C BC, ADIFF, ANEU, DIFF, MORPH, BMP, MONO #### [place] [address] #### GFR #### [place] [address] Hematocrit (Bld) [Volume fraction] 39.6 % Normal 37.0-47.0 Replaced By [facility] ([place] Comment on above: Performed By: #### C BC, ADIFF, ANEU, DIFF, MORPH, BMP, MONO #### [place] [address] #### GFR #### [place] [address] Hgb 13.1 G/dL Normal 12.0-16.0 Replaced By [facility] ([place] Comment on above: Performed By: #### C BC, ADIFF, ANEU, DIFF, MORPH, BMP, MONO #### [address] [address] #### GFR #### [place] [address] MCH (RBC) [Entitic mass] 27.2 pg Normal 27.0-31.2 Replaced By [facility] ([place] Comment on above: Performed By: #### C BC, ADIFF, ANEU, DIFF, MORPH, BMP, MONO #### [place] [address] #### GFR #### [place] [address] MCHC 33.1 G/dL Normal 33.0-37.0 Replaced By [facility] ([place] Comment on above: Performed By: #### C BC, ADIFF, ANEU, DIFF, MORPH, BMP, MONO #### [place] [address] #### GFR #### [place] [address] MCV (RBC) [Entitic vol] 82.3 fL Normal 80.0-94.0 Replaced By [facility] ([place] Comment on above: Performed By: #### C BC, ADIFF, ANEU, DIFF, MORPH, BMP, MONO #### [place] [address] #### GFR #### [place] [address] Platelet 251 10 3/mcL Normal 130-400 Replaced By [facility] ([place] Comment on above: Performed By: #### C BC, ADIFF, ANEU, DIFF, MORPH, BMP, MONO #### [place] [address] #### GFR #### [place] [address] Platelet mean volume (Bld) [Entitic vol] 8.4 fL Normal 7.4-10.4 Replaced By [facility] ([place] Comment on above: Performed By: #### C BC, ADIFF, ANEU, DIFF, MORPH, BMP, MONO #### [place] [address] #### GFR #### [place] [address] RBC 4.81 10 6/mcL Normal 4.20-5.40 Replaced By [facility] ([place]) Comment on above: Performed By: #### C BC, ADIFF, ANEU, DIFF, MORPH, BMP, MONO #### [place] [address] [place], [place] [address] #### GFR #### [address] [address] WBC 7.90 10 3/mcL Normal 4.60-10.80 Replaced By [facility] ([place]) Comment on above: Performed By: #### C BC, ADIFF, ANEU, DIFF, MORPH, BMP, MONO #### [place] [address] [place], [place] [address] #### GFR #### [address] [address] [address] SOFT TISSUE NECK W/ CONTR Mago 07-23-2021 CT SOFT TISSUE NECK W/ CONTRAST ORIGINAL EXAMINATION: CT OF THE NECK SOFT TISSUE WITH CONTRAST 07/23/2021 TECHNIQUE: CT of the neck was performed with the administration of intravenous contrast. Multiplanar reformatted images are provided for review. Dose modulation, iterative reconstruction, and/or weight based adjustment of the mA/kV was utilized to reduce the radiation dose to as low as reasonably achievable. COMPARISON: None. HISTORY: ORDERING SYSTEM PROVIDED HISTORY: Reason for Exam: sore throat pain FINDINGS: PHARYNX/LARYNX: The palatine tonsils are moderately enlarged with the cerebral for appearance. There is no associated inflammatory fat stranding or fluid collection. The airway is patent. The pharynx and larynx are normal. The epiglottis is normal in thickness. The parotid and submandibular glands appear unremarkable. The thyroid gland is normal. The bilateral cervical lymph nodes a mildly enlarged in submandibular regions, measuring 1.2 cm on the right and 1.1 cm on the left in short axis. The visualized portion of the intracranial contents demonstrate a darryl cisterna magna. Mild mucosal thickening in the maxillary sinuses is noted. The lung apices are clear. The bones are unremarkable. IMPRESSION: Bacliff tonsils are mildly enlarged and heterogeneous, no definite peritonsillar abscess is identified.. No associated inflammatory fat stranding or fluid collection. Patent airway. Reactive submandibular lymph nodes bilaterally. I have personally reviewed the images of this examination and agree with the resident's findings and interpretation. Interpreted by: Yan Lancaster Preliminary Report By: Kenan Vaughan Electronically signed By Yan Lancaster Dictated Date: 07/23/2021 8:25:07 PM Prelim Date: 07/23/2021 8:34:41 PM Sign Date: 07/23/2021 8:57:53 PM Ordering Provider: MARIUM CROW Normal Replaced By [facility] ([place] MONOon 07-23-2021 Mononucleosis Positive Normal Negative Replaced By [facility] ([place] Comment on above: Performed By: #### C BC, ADIFF, ANEU, DIFF, MORPH, BMP, MONO #### [address] [address] #### GFR #### [place] [address] PREGUon 07-23-2021 HCG ( test) Ql (U) Negative Normal Replaced By [facility] ([place] Comment on above: Performed By: #### U A, PREGU #### [address] [address] test (u) int Not detected Invalid Interpretation Code Replaced By [facility] ([place]) Comment on above: Performed By: #### U A, PREGU #### [address] [address] UAon 07-23-2021 Color (U) Yellow Normal Replaced By [facility] ([place] Comment on above: Performed By: #### U A, PREGU #### [address] [address] Glucose (U) [Mass/Vol] Negative Normal Negative [facility] ([place]) Comment on above: Performed By: #### U A, PREGU #### [address] [address] Ketones Ql (U) Negative Normal Negative Replaced By [facility] ([place] Comment on above: Performed By: #### U A, PREGU #### [address] [address] UA Appear Clear Normal Clear Replaced By [facility] ([place] Comment on above: Performed By: #### U A, PREGU #### [address] [address] UA Blood Negative Normal Negative Replaced By [facility] ([place] Comment on above: Performed By: #### U A, PREGU #### [address] [address] UA Leuk Est Negative Normal Negative Replaced By [facility] ([place] Comment on above: Performed By: #### U A, PREGU #### [address] [address] UA Nitrite Negative Normal Negative Replaced By [facility] ([place] Comment on above: Performed By: #### U A, PREGU #### [address] [address] UA pH 6.0 Normal 5.0 - 8.0 Replaced By [facility] ([place] Comment on above: Performed By: #### U A, PREGU #### [place] [address] UA Protein Negative Normal Negative Replaced By [facility] ([place] Comment on above: Performed By: #### U A, PREGU #### [place] [address] UA Spec Grav 1.015 Normal 1.015-1.025 Replaced By [facility] ([place] Comment on above: Performed By: #### U A, PREGU #### [place] [address] UA Specimen Type Clean Catch Normal Replaced By [facility] ([place] Comment on above: Performed By: #### U A, PREGU #### [place] [address] UA Urobilinogen 0.2 E.U./dL Normal 0.2-1.0 Replaced By [facility] ([place] Comment on above: Performed By: #### U A, PREGU #### [place] [address] Urobilinogen (U) [Mass/Vol] Negative Normal Negative Replaced By [facility] ([place] Comment on above: Performed By: #### U A, PREGU #### [place] [address] HCG,URINEon 06-29-2020 Beta HCG ( test) Ql (U) Negative Normal Negative [facility] Comment on above: Performed By: #### H U #### [place] [id number] [place] [id number] Provider Note - ED v2on 06-02 Provider Note - ED v2 Provider Note - ED v2: Chart Review: ED NOTES ED NOTES: HPI: For the last 5 days patient complains of lower abdominal pain and fever. Patient was seen at urgent care and was sent here for evaluation. She notes fever and nausea denies any vomiting and denies any recent urinary burning or frequency. Last menstrual period was approximately 1 month ago. ROS: All systems are negative other than as noted in HPI. Physical Exam I have reviewed the triage vital signs. Const: Well nourished, well developed, appears stated age, no acute distress Eyes: PERRL, EOM intact, no conjunctival injection, vision grossly normal HENT: Neck supple without meningismus , Moist mucous membranes, no pharyengeal swelling or exudate CV: Regular rate and rhythm, Warm, well-perfused extremities. Chest non tender RESP: Lungs clear bilaterally, Unlabored respiratory effort GI: soft, non-tender, non-distended, no masses : MSK: No gross deformities appreciated Back: Non tender, no pain with ROM Skin: Warm, dry. No rashes Neuro: Alert and oriented x4, GCS 15 , coordinating producer II-XII grossly intact. Sensation and motor function of extremities grossly intact. Psych: Appropriate mood and affect. I have reviewed and confirmed nurses/medics notes for patient past, social and family history. Portions of this note were dictated by speech recognition. An attempt at proof reading was made to minimize errors. Minor errors in interlibrary loan specialist may be present. HISTORY OF PRESENTING ILLNESS ALEYDA is a 20 year old Female and was seen by me at 29-Jun-2020 10:36 for a chief complaint of abdominal pain (lower abd pain since Tuesday with fever. lower back pain since yesterday. increased urination)(1). Triage Information: Most recent Vital Sign Value Date Temp (F): 102.6 06-29-2020 10:53 Temp (C): 39.2 06-29-2020 10:53 Heart Rate (beats/min): 117 06-29-2020 10:53 Respirations (breaths/min): 18 06-29-2020 10:53 SpO2 (%): 98 06-29-2020 10:53 BP Systolic (mm Hg): 108 06-29-2020 10:53 BP Diastolic (mm Hg): 63 06-29-2020 10:53 PAST MEDICAL HISTORY ATTESTATION: I have reviewed and confirmed nurse's/medic's notes for patient's medications, allergies, medical history, and surgical history ALLERGIES/INTOLERANCES: No Known Allergies HEALTH HISTORY: No documented data. 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) Is : no(1) RESULTS/VITAL SIGNS RESULTS: Recent Lab Results: I have reviewed these laboratory results: Urine Test 29-Jun-2020 11:37:00 ResultValue HCG, Urine NEGATIVE Urinalysis with Culture if Indicated 29-Jun-2020 11:37:00 ResultValue Color, Urine Yellow Reference Range: STRAW,YELLOW Appearance, Urine HAZY Specific [place], Urine 1.016 pH, Urine 6.0 Protein, Urine 100(2+) A Glucose, Urine NEGATIVE Blood, Urine SMALL(1+) A Ketones, Urine NEGATIVE Bilirubin, Urine NEGATIVE Urobilinogen, Urine 4.0 H Nitrite, Urine Negative Leukocyte Esterase, Urine MODERATE(2+) A Urinalysis, Microscopic 29-Jun-2020 11:37:00 ResultValue White Cells >182 A WBC Clumps MANY Red Blood Cells 40 A Epithelial Cells, Squamous 8 Bacteria, Urine 1+ A VITAL SIGNS: T PRBP SpO2O2(LPM) %FiO2 Method 29-Jun-2020 12:29:00-37.1 29-Jun-2020 12:21:[id number] 96 29-Jun-2020 11:59:[id number] 96 29-Jun-2020 10:53:[id number]/6 3 98 room air, no respiratory support MEDICAL DECISION MAKING/ED COURSE MDM/ED COURSE: 1230-final results reviewed with patient. Urinalysis is consistent for urinary tract infection and patient given 1 g Rocephin IV in the emergency department. Patient was given 975 mg Tylenol and a liter of fluids and on recheck her current temperature is 98.8 and her heart rate is 95. Patient discharged home with a prescription for Keflex and instructions as noted below. Patient comfortable with plan. The urine sample was consistent with a urinary tract infection and you were given your first dose of IV antibiotics in the emergency department. Please start taking your first dose of oral antibiotics at 6pm and then take them as directed from that on. Please follow-up with your family doctor in 3-4 days for reevaluation and return immediately to the nearest ER for any fevers, vomiting, any other new or worsening concerns. CLINICAL IMPRESSION Diagnosis/Annotation: ED Dx Name:UTI (urinary tract infection) Code:N39.0 Dispostion: discharged Type: home ATTESTATION CRITICAL CARE TIME Is this a critically ill patient: no Electronic Signatures: Mala Varela I (LINE PILOT-SUGAR REPROCESS OPERATOR HEAD) (Signed 29-Jun-2020 12:40) Authored: Provider Note - ED v2 Last Updated: 29-Jun-2020 12:40 by Mala Varela I (LINE PILOT-SUGAR REPROCESS OPERATOR HEAD) References: 1. Data Referenced From Triage - ED 29-Jun-2020 10:53 Normal [facility] Risk Screen - Adult Emergenc yon 06-29-2020 Risk Screen - Adult Emergency Preferred Language: Preferred Language: Preferred Language for Discussing Health Care (patient/designee)Latia edwards Advanced Directives: Advance Directive/DNRno Family Violence Adult: Abuse Screen: Are you or have you been threatened or abused physically, emotionally, or sexually by anyoneno Learning Assessment (Patient): Learning Assessment (Patient): Patient is Able to be Assessed for Learningyes Factors Influencing Readiness to Learnpain Factors that Impact Ability to Learnnone Devices/Methods Used to Communicatenone Learning Preferencesaudio Cultural Considerationsnone Developmental Considerationsnone Mormon Considerationsnone Learning Assessment (Other Learner): Learning Assessment (Other Learner): Other learner availableno Pressure Injury/TB/Substance: Pressure Injury: Do you have a coughno Substance Use Current or Former Historynever: Cigarette/Tobacco Admission Risk Screen: Significant IndicatorsComplete CAGE: CAGE: [place] an [place] [place]): no Electronic Signatures: Maria Fernanda Kilgore (RN) (Signed 29-Jun-2020 11:01) Authored: Preferred Language, Advanced Directives, Family Violence Adult, Learning Assessment (Patient), Learning Assessment (Other Learner), Pressure Injury/TB/Substance, CAGE Last Updated: 29-Jun-2020 11:01 by Maria Fernanda Kilgore (RN) [facility] Triage - EDon 06-29-2020 Triage - ED Quick Triage: Are You no Are You Currently Breastfeedingno Chart Review: CHIEF COMPLAINT ALEYDA ANN is a Female patient with a chief complaint of abdominal pain (lower abd pain since Tuesday with fever. lower back pain since yesterday. increased urination). Triage Date/Time: 29-Jun-2020 10:54 Pain Rating (0-10): 4 = Moderate Vital Signs: Temperature: 102.6F ( 39.2C) taken oral Blood Pressure: 108/63 Mean: Heart Rate: 117 Respiratory Rate: 18 Pulse Oximetry: 98% on room air, no respiratory support. Height: 5 feet 10.00 inches. 177.8 CM Weight: 250.4 pounds. Calculated 113.6 kg. (stated) Calculated BMI (kg/m2): 35.934 Calculated BSA (m2) 2.37 [place] Coma Scale: Best Eye Response: (E4) spontaneous Best Motor Response: (M6) obeys commands Best Verbal Response: (V5) oriented Yon Score: 15 Last menstrual period: (3 weeks ago) Patient has homicidal thoughts: no SIXTO: 3 Risk Screens Suicide Risk Screen In the Past Month: Have you wished you were or wished you could go to sleep and not wake up no In the Past Month: Have you had any actual thoughts of killing yourself no In Your Lifetime: Have you ever done anything, started to do anything, or prepared to do anything to end your life no Desir Fall Scale Screening Has the patient fallen before (or is the patient in the ED as a result of a fall) has not had a fall Does the patient have an impaired gait does not have impaired gait Is the patient cognitively impaired not cognitively impaired Interventions: Desir Fall Interventions: LOW INTERVENTIONS: *patient oriented to surroundings and call system, * patient/family falls education completed and documented, *patients fall status communicated during bedside handoff, *whiteboard updated, *mode of toileting discussed with patient, *bed in low position with brakes locked, *call light in reach, * non-skid footwear PAIN Pain Scale Used: KIM Pain Rating (0-10): 4 = Moderate ARRIVAL INFORMATION Means of Arrival: Ambulatory Mode of Arrival: private vehicle Arrival From: home Accompanied By: self Language: Spoken Language Preferred: Bengali TRAVEL HISTORY Travel History Coronavirus Screening: no exposure or symptoms Travel Exposure History: NO travel to International locations in the past 30 days Past Medical History: Past Medical History Reviewedyes DENIES ALCOHOL: Social/Behavioral, Active NON SMOKER: Social/Behavioral, Active FATHER-HYPERTENSION: Other, Active Electronic Signatures: Maria Fernanda Kilgore (RN) (Signed 29-Jun-2020 11:00) Authored: Triage, Past Medical History Last Updated: 29-Jun-2020 11:00 by Maria Fernanda Kilgore (RN) Normal [facility] UA MICROSCOPICon 06-29-2020 BACTERIA 1+ /HPF Abnormal [facility] Comment on above: Performed By: #### U AMIC #### [place] [address] RBC 40 /HPF Abnormal 0-5 [facility] Comment on above: Performed By: #### U AMIC #### [place] [address] SQUAMOUS EPITH. CELLS 8 /HPF Normal [facility] Comment on above: Performed By: #### U AMIC #### [place] [address] WBC (Bld) [#/Vol] >182 Abnormal 0-5 [facility] Comment on above: Performed By: #### U AMIC #### [place] [address] WBC CLUMPS MANY Normal [facility] Comment on above: Performed By: #### U AMIC #### [place] [address] URINALYSIS WITH CULTURE IF I NDICATEDon 06-29-2020 Appearance (U) HAZY Normal CLEAR [facility] Comment on above: Performed By: #### U ARFX #### [place] [address] Bilirubin (U) [Mass/Vol] Negative Normal NEGATIVE [facility] Comment on above: Performed By: #### U ARFX #### [place] [address] BLOOD SMALL(1+) Abnormal NEGATIVE [facility] Comment on above: Performed By: #### U ARFX #### [place] [address] Color (U) Yellow Normal STRAW,YELLOW [facility] Comment on above: Performed By: #### U ARFX #### [place] [address] Glucose [Mass/Vol] Negative Normal NEGATIVE [facility] Comment on above: Performed By: #### U ARFX #### [place] [address] Ketones Ql (U) Negative Normal NEGATIVE [facility] Comment on above: Performed By: #### U ARFX #### [place] [address] Leukocyte esterase Test strip Ql (U) MODERATE(2+) Abnormal NEGATIVE [facility] Comment on above: Performed By: #### U ARFX #### [place] [address] Nitrite Ql (U) Negative Normal NEGATIVE [facility] Comment on above: Performed By: #### U ARFX #### [place] [address] pH (Bld) 6.0 Normal 5.0 - 8.0 [facility] Comment on above: Performed By: #### U ARFX #### [place] [address] Protein (U) [Mass/Vol] 100(2+) Abnormal NEGATIVE [facility] Comment on above: Performed By: #### U ARFX #### [place] [address] Specific gravity (U) [Rel density] 1.016 Normal 1.005 - 1.035 [facility] Comment on above: Performed By: #### U ARFX #### [address] [address] Urobilinogen Qn (U) 4.0 mg/dL High 0.0 - 1.9 [facility] Comment on above: Result Comment: SOME PIGMENTS AND MEDICATIONS MAY CAUSE A FALSE POSITIVE UROBILINOGEN Performed By: #### U ARFX #### [address] [address] URINE CULTURE,BACTERIALon URINE CULTURE,BACTERIAL PATIENT: ALEYDA ANN LOCATION: [facility]#: [id number] : 89 AGE: SEX: F ORDERED BY: MALA VARELA SOURCE: URINE COLLECTED: 06/29/20 11:37 ANTIBIOTICS AT LOS.: RECEIVED : 06/29/20 21:29 SITE: Andie Rivera T S URINE CULTURE,BACTERIAL FINAL 07/01/20 11:23 ISOLATE1 : Escherichia coli >100,000 CFU/ML Organism E coli Antibiotic BP INTRP Ampicillin S Ceftriaxone S Cefotaxime S Cefazolin S Ciprofloxacin S Nitrofurantoin S Gentamicin S Levofloxacin S Piperc/Tazobact S Trimeth/Sulfa S Tetracycline S S=SUSCEPTIBLE I=INTERMEDIATE R=RESISTANT SDD=SUSCEPTIBLE DOSE DEPENDENT NS=NONSUSCEPTIBLE X=REPORTED IN ERROR Normal [facility] Comment on above: Performed By: #### U [facility] #### [facility] [address] [place] [address] Provider Note - ED v2on 07-31 Provider Note - ED v2 Provider Note - ED v2: Chart Review: ED NOTES ED NOTES: A nontoxic appearing 19-year-old female presents to urgent care with a chief complaint of cough, sore throat, sinus discharge. Duration of symptoms 1 week. Associated symptoms cough, sinus congestion, sinus discharge, sore throat. Patient states use of [id number] medications with little to no success. Patient denies any pain at rest and 4 out of 10 pain with swallowing. Patient states she has been in contact this other individual psoas sign symptoms. Patient denies any fevers, nausea, vomiting, headache, vision changes, abdominal pain, pleuritic pain, shortness breath or change in bowel or bladder habit. Patient denies any possibility history prescription medication is a chance . HISTORY OF PRESENTING ILLNESS ALEYDA is a 19 year old Female and was seen by me at 15-Aug-2019 13:25. The historian is the patient. Triage Information: Most recent Vital Sign Value Date PAST MEDICAL HISTORY ATTESTATION: I have reviewed and confirmed nurse's/medic's notes for patient's medications, allergies, medical history, and surgical history PSYCHOSOCIAL SCREENING: NO: concerns for safety at home, feelings of depression, feels like hurting others and feels like hurting self CURRENT OR FORMER SUBSTANCE USE: NO: Cigarette/Tobacco, e-Cigarette/Vaping, Alcohol and Street Drugs ALLERGIES/INTOLERANCES: No Known Allergies HEALTH HISTORY: No documented data. 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 HENMT: Airway patent, ears with clear tympanic membranes bilaterally. Nasal mucosa clear. Mouth with normal mucosa. Throat has no vesicles, no oropharyngeal exudates and uvula is midline. Face with no lymph node enlargement. EYES: Clear bilaterally, pupils equal, round and reactive to light. CARDIOVASCULAR: Normal rate, regular rhythm. Normal peripheral perfusion RESPIRATORY: Breath sounds clear and equal bilaterally. GASTROINTESTINAL: Abdomen soft, non-distended, no rebound, no guarding. GENITOURINARY: No discharge, no lesions. MUSCULOSKELETAL: Spine appears normal, range of motion is not limited, no muscle or joint tenderness. NEUROLOGICAL: Alert and oriented, no focal deficits, no motor or sensory deficits. SKIN: Skin normal color for race, warm, dry and intact. No evidence of trauma. PSYCHIATRIC: Alert and oriented to person, place, time/situation. normal mood and affect. No apparent risk to self or others. HEME/LYMPH: Negative cervical adenopathy RESULTS/VITAL SIGNS VITAL SIGNS: T PRBP SpO2O2(LPM) %FiO2 Method 15-Aug-2019 12:45:[id number] 96 resp 18 CLINICAL IMPRESSION Diagnosis/Annotation: ED Dx Name:URI (upper respiratory infection) Code:J06.9 Dispostion: discharged Type: home ATTESTATION Comments/Additional Findings: Patient is sinus acute URI. Patient was placed on doxycycline q 12 hrs 7 days. Patient was educated on supportive therapies. Patient will follow up with PCP and to 3 days for evaluation. Patient was instructed to immediately proceed to emergency room for any new, worsening, or symptoms lasting longer than anticipated. The patient's clinical presentation is otherwise unremarkable at this time. Based on exam and clinical finding the patient is stable for discharge. Plan of care was discussed with patient. Patient verbalizes understanding and agrees to plan of care. This note was generated using [employer] software. It may contain errors in wording, punctuation, or spelling. CRITICAL CARE TIME Is this a critically ill patient: no Electronic Signatures: Vicente Rivera (LINE PILOT-SUGAR REPROCESS OPERATOR HEAD) (Signed 15-Aug-2019 13:28) Authored: Provider Note - ED v2 Last Updated: 15-Aug-2019 13:28 by Vicente Rivera (LINE PILOT-SUGAR REPROCESS OPERATOR HEAD) [facility] [place] Information SARS-CoV-2 & FLU Antigen (Rapid) [facility] Work Phone: Vital Signs Date Time Vital Sign Value Performing Clinician Facility 05-16-2025 13:57-0400 Body height 180.[address] Matt Mendoza MD Work Phone: [facility] 05-16-2025 13:57-0400 Body mass index (BMI) [Ratio] 42.3 kg/m2 Dr. Matt Mendoza MD Work Phone: [facility] 05-16-2025 13:57-0400 Body temperature 97.4 [degF] Dr. Matt Mendoza MD Work Phone: [facility] 05-16-2025 13:57-0400 Body weight 137.[address] Matt Mendoza MD Work Phone: [facility] 05-16-2025 13:57-0400 Diastolic blood pressure 68 mm[Hg] Dr. Matt Mendoza MD Work Phone: [facility] 05-16-2025 13:57-0400 Heart rate 104 /min Dr. Matt Mendoza MD Work Phone: [facility] 05-16-2025 13:57-0400 Respiratory rate 16 /min Dr. Matt Mendoza MD Work Phone: [facility] 05-16-2025 13:57-0400 SaO2% (BldA) [Mass fraction] 92 % Dr. Matt Mendoza MD Work Phone: [facility] 05-16-2025 13:57-0400 Systolic blood pressure 128 mm[Hg] Dr. Matt Mendoza MD Work Phone: [facility] 03-11-2025 11:07-0400 Body mass index (BMI) [Ratio] 42.72 kg/m2 Zacarias GIRON Work Phone: [facility] 03-11-2025 11:07-0400 Body temperature 97.39 [degF] Krislyn Aberegg PA Work Phone: [facility] 03-11-2025 11:07-0400 Body weight 138.4 kg Krislyn Aberegg PA Work Phone: [facility] 03-11-2025 11:07-0400 Diastolic blood pressure 80 mm[Hg] Krislyn Aberegg PA Work Phone: [facility] 03-11-2025 11:07-0400 Heart rate 96 /min Krislyn Aberegg PA Work Phone: [facility] 03-11-2025 11:07-0400 Respiratory rate 16 /min Krislyn Aberegg PA Work Phone: [facility] 03-11-2025 11:07-0400 SaO2% (BldA) [Mass fraction] 97 % Krislyn Aberegg PA Work Phone: [facility] 03-11-2025 11:07-0400 Systolic blood pressure 122 mm[Hg] Krislyn Aberegg PA Work Phone: [facility] 11-05-2024 14:33-0500 Body mass index (BMI) [Ratio] 41.76 kg/m2 Vicente Rivera LINE PILOT.SUGAR REPROCESS OPERATOR HEAD Work Phone: [facility] 11-05-2024 14:33-0500 Body temperature 97.59 [degF] Vicente Rivera LINE PILOT.SUGAR REPROCESS OPERATOR HEAD Work Phone: [facility] 11-05-2024 14:33-0500 Body weight 135.3 kg Vicente Rivera LINE PILOT.SUGAR REPROCESS OPERATOR HEAD Work Phone: [facility] 11-05-2024 14:33-0500 Diastolic blood pressure 78 mm[Hg] Vicente Rivera LINE PILOT.SUGAR REPROCESS OPERATOR HEAD Work Phone: [facility] 11-05-2024 14:33-0500 Heart rate 105 /min Vicente Rivera LINE PILOT.SUGAR REPROCESS OPERATOR HEAD Work Phone: [facility] 11-05-2024 14:33-0500 Respiratory rate 18 /min Vicente Rivera APRN.SUGAR REPROCESS OPERATOR HEAD Work Phone: [facility] 11-05-2024 14:33-0500 SaO2% (BldA) [Mass fraction] 96 % Vicente Rivera APRN.SUGAR REPROCESS OPERATOR HEAD Work Phone: [facility] 11-05-2024 14:33-0500 Systolic blood pressure 110 mm[Hg] Vicente Rivera APRN.SUGAR REPROCESS OPERATOR HEAD Work Phone: [facility] 05-08-2024 13:06-0400 Body mass index (BMI) [Ratio] 45.37 kg/m2 Donna Moreau APRN.SUGAR REPROCESS OPERATOR HEAD Work Phone: [facility] 05-08-2024 13:06-0400 Body temperature 97.59 [degF] Donna Moreau APRN.SUGAR REPROCESS OPERATOR HEAD Work Phone: [facility] 05-08-2024 13:06-0400 Body weight 147 kg Donna Moreau APRN.SUGAR REPROCESS OPERATOR HEAD Work Phone: [facility] 05-08-2024 13:06-0400 Diastolic blood pressure 91 mm[Hg] Donna Moreau APRN.SUGAR REPROCESS OPERATOR HEAD Work Phone: [facility] 05-08-2024 13:06-0400 Heart rate 103 /min Donna Moreau APRN.SUGAR REPROCESS OPERATOR HEAD Work Phone: [facility] 05-08-2024 13:06-0400 Respiratory rate 20 /min Donna Moreau APRN.SUGAR REPROCESS OPERATOR HEAD Work Phone: [facility] 05-08-2024 13:06-0400 SaO2% (BldA) [Mass fraction] 96 % Donna Moreau APRN.SUGAR REPROCESS OPERATOR HEAD Work Phone: [facility] 05-08-2024 13:06-0400 Systolic blood pressure 131 mm[Hg] Donna Moreau APRN.SUGAR REPROCESS OPERATOR HEAD Work Phone: [facility] 04-25-2024 09:22-0400 Body mass index (BMI) [Ratio] 45.92 kg/m2 Edilma Bairesmax BARNETT.SUGAR REPROCESS OPERATOR HEAD Work Phone: [facility] 04-25-2024 09:22-0400 Body weight 148.78 kg Edilma Bairesmax BARNETT.SUGAR REPROCESS OPERATOR HEAD Work Phone: [facility] 04-25-2024 09:22-0400 Diastolic blood pressure 68 mm[Hg] Edilma Bairesmax LINE PILOT.SUGAR REPROCESS OPERATOR HEAD Work Phone: [facility] 04-25-2024 09:22-0400 Heart rate 94 /min Edilma Bairesmax ARECHIGAN.SUGAR REPROCESS OPERATOR HEAD Work Phone: [facility] 04-25-2024 09:22-0400 Respiratory rate 16 /min Edilma Bairesmax ARECHIGAN.SUGAR REPROCESS OPERATOR HEAD Work Phone: [facility] 04-25-2024 09:22-0400 SaO2% (BldA) [Mass fraction] 95 % Edilma Bairesmax BARNETT.SUGAR REPROCESS OPERATOR HEAD Work Phone: [facility] 04-25-2024 09:22-0400 Systolic blood pressure 118 mm[Hg] Edilma Sandhu LINE PILOT.SUGAR REPROCESS OPERATOR HEAD Work Phone: [facility] 01-29-2024 19:04-0400 Body temperature 96.3 [degF] Dr. Matt Mendoza Work Phone: [facility] 01-29-2024 19:04-0400 Diastolic blood pressure 98 mm[Hg] Dr. Matt Mendoza Work Phone: [facility] 01-29-2024 19:04-0400 Heart rate 98 /min Dr. Matt Mendoza Work Phone: [facility] 01-29-2024 19:04-0400 Respiratory rate 22 /min Dr. Matt Mendoza Work Phone: [facility] 01-29-2024 19:04-0400 SaO2% (BldA) [Mass fraction] 98 % Dr. Matt Mendoza Work Phone: [facility] 01-29-2024 19:04-0400 Systolic blood pressure 168 mm[Hg] Dr. Matt Mendoza Work Phone: [facility] 01-29-2024 18:19-0400 Body height 180.[address] Matt Mendoza Work Phone: [facility] 01-10-2024 06:20-0400 Body height 180.[address] Matt Mendoza Work Phone: [facility] 01-10-2024 06:20-0400 Body mass index (BMI) [Ratio] 48.3 kg/m2 Dr. Matt Mendoza Work Phone: [facility] 01-10-2024 06:20-0400 Body temperature 98 [degF] Dr. Matt Mendoza Work Phone: [facility] 01-10-2024 06:20-0400 Body weight 157.[address] Matt Mendoza Work Phone: [facility] 01-10-2024 06:20-0400 Diastolic blood pressure 70 mm[Hg] Dr. Matt Mendoza Work Phone: [facility] 01-10-2024 06:20-0400 Heart rate 103 /min Dr. Matt Mendoza Work Phone: [facility] 01-10-2024 06:20-0400 Respiratory rate 18 /min Dr. Matt Mendoza Work Phone: [facility] 01-10-2024 06:20-0400 SaO2% (BldA) [Mass fraction] 95 % Dr. Matt Mendoza Work Phone: [facility] 01-10-2024 06:20-0400 Systolic blood pressure 114 mm[Hg] Dr. Matt Mendoza Work Phone: [facility] 01-05-2024 13:31-0500 Body mass index (BMI) [Ratio] 47.9 kg/m2 Dr. Matt Mendoza Work Phone: [facility] 01-05-2024 13:31-0500 Body temperature 97.7 [degF] Dr. Matt Mendoza Work Phone: [facility] 01-05-2024 13:31-0500 Body weight 156.[address] Matt Mendoza Work Phone: [facility] 01-05-2024 13:31-0500 Diastolic blood pressure 76 mm[Hg] Dr. Matt Mendoza Work Phone: [facility] 01-05-2024 13:31-0500 Heart rate 110 /min Dr. Matt Mendoza Work Phone: [facility] 01-05-2024 13:31-0500 Respiratory rate 20 /min Dr. Matt Mendoza Work Phone: [facility] 01-05-2024 13:31-0500 SaO2% (BldA) [Mass fraction] 94 % Dr. Matt Mendoza Work Phone: [facility] 01-05-2024 13:31-0500 Systolic blood pressure 138 mm[Hg] Dr. Matt Mendoza Work Phone: [facility] 01-01-2024 01:41-0500 Body temperature 98.4 [degF] Dr. Matt Mendoza Work Phone: [facility] 01-01-2024 01:41-0500 Diastolic blood pressure 60 mm[Hg] Dr. aMtt Mendoza Work Phone: [facility] 01-01-2024 01:41-0500 Heart rate 103 /min Dr. Matt Mendoza Work Phone: [facility] 01-01-2024 01:41-0500 Respiratory rate 21 /min Dr. Matt Mendoza Work Phone: [facility] 01-01-2024 01:41-0500 SaO2% (BldA) [Mass fraction] 90 % Dr. Matt Mendoza Work Phone: [facility] 01-01-2024 01:41-0500 Systolic blood pressure 122 mm[Hg] Dr. Matt Mendoza Work Phone: [facility] 12-31-2023 21:39-0500 Body height 180.[address] Matt Mendoza Work Phone: [facility] 12-31-2023 21:39-0500 Body mass index (BMI) [Ratio] 49.5 kg/m2 Dr. Matt Mendoza Work Phone: [facility] 12-31-2023 21:39-0500 Body weight 161.[address] Matt Mendoza Work Phone: [facility] 09-07-2023 17:51-0500 Body mass index (BMI) [Ratio] 46.1 kg/m2 Dr. Matt Mendoza [facility] [facility] 09-07-2023 17:51-0500 Body temperature 97.3 [degF] Dr. Matt Mendoza Work Phone: [facility] 09-07-2023 17:51-0500 Body weight 150.[address] Matt Mendoza Work Phone: [facility] 09-07-2023 17:51-0500 Diastolic blood pressure 82 mm[Hg] Dr. Matt Mendoza Work Phone: [facility] 09-07-2023 17:51-0500 Heart rate 110 /min Dr. Matt Mendoza Work Phone: [facility] 09-07-2023 17:51-0500 Respiratory rate 16 /min Dr. Matt Mendoza Work Phone: [facility] 09-07-2023 17:51-0500 SaO2% (BldA) [Mass fraction] 91 % Dr. Matt Mendoza Work Phone: [facility] 09-07-2023 17:51-0500 Systolic blood pressure 136 mm[Hg] Dr. Matt Mendoza Work Phone: [facility] 09-03-2023 10:53-0400 Body temperature 97.59 [degF] Lizet Caicedo [employer] Work Phone: [facility] 09-03-2023 10:53-0400 Body weight 150.05 kg Lizet Caicedo [employer] O[employer] Work Phone: [facility] 09-03-2023 10:53-0400 Diastolic blood pressure 84 mm[Hg] Lizet Caicedo [employer] O[employer] Work Phone: [facility] 09-03-2023 10:53-0400 Heart rate 88 /min Lizet Caicedo [employer] O[employer] Work Phone: [facility] 09-03-2023 10:53-0400 Respiratory rate 18 /min Lizet Caicedo [employer] O[employer] Work Phone: [facility] 09-03-2023 10:53-0400 SaO2% (BldA) [Mass fraction] 95 % Lizet Caicedo [employer] O[employer]ATOR [employer] Work Phone: [facility] 09-03-2023 10:53-0400 Systolic blood pressure 128 mm[Hg] Lizet Caicedo [employer] OPERATOR [employer] Work Phone: [facility] 08-01-2023 13:53-0400 Body temperature 98.29 [degF] Vicente Rivera [employer] O[employer]ATOR [employer] Work Phone: [facility] 08-01-2023 13:53-0400 Body weight 152.77 kg Vicente Rivera [employer] O[employer]ATOR [employer] Work Phone: [facility] 08-01-2023 13:53-0400 Diastolic blood pressure 84 mm[Hg] Vicente Rivera [employer] OPERATOR HEAD Work Phone: [facility] 08-01-2023 13:53-0400 Heart rate 85 /min [facility] [employer] O[employer] Work Phone: [facility] 08-01-2023 13:53-0400 Respiratory rate 22 /min [facility] [employer] O[employer]ATOR [employer] Work Phone: [facility] 08-01-2023 13:53-0400 SaO2% (BldA) [Mass fraction] 95 % [facility] [employer] OPERATOR HEAD Work Phone: [facility] 08-01-2023 13:53-0400 Systolic blood pressure 124 mm[Hg] [facility] [employer] OPERATOR [employer] Work Phone: [facility] 04-23-2023 12:03-0400 Diastolic blood pressure 89 mm[Hg] Dr. Matt Mendoza Work Phone: [facility] 04-23-2023 12:03-0400 Heart rate 94 /min Dr. Matt Mendoza Work Phone: [facility] 04-23-2023 12:03-0400 Respiratory rate 18 /min Dr. Matt Mendoza Work Phone: [facility] 04-23-2023 12:03-0400 SaO2% (BldA) [Mass fraction] 98 % Dr. Matt Mendoza Work Phone: [facility] 04-23-2023 12:03-0400 Systolic blood pressure 151 mm[Hg] Dr. Matt Mendoza Work Phone: [facility] 04-23-2023 10:47-0400 Body height 180.[address] Matt Mendoza Work Phone: [facility] 04-23-2023 10:47-0400 Body mass index (BMI) [Ratio] 46 kg/m2 Dr. Matt Mendoza Work Phone: [facility] 04-23-2023 10:47-0400 Body temperature 97.3 [degF] Dr. Matt Mendoza Work Phone: [facility] 04-23-2023 10:47-0400 Body weight 149.[address] Matt Mendoza Work Phone: [facility] 04-06-2023 08:28-0400 Body height 180.[address] Matt Mendoza Work Phone: [facility] 04-06-2023 08:28-0400 Body mass index (BMI) [Ratio] 46.3 kg/m2 Dr. Matt Mendoza Work Phone: [facility] 04-06-2023 08:28-0400 Body temperature 96.4 [degF] Dr. Matt Mendoza Work Phone: [facility] 04-06-2023 08:28-0400 Body weight 150.[address] Matt Mendoza Work Phone: [facility] 04-06-2023 08:28-0400 Diastolic blood pressure 80 mm[Hg] Dr. Matt Mendoza Work Phone: [facility] 04-06-2023 08:28-0400 Heart rate 104 /min Dr. Matt Mendoza Work Phone: [facility] 04-06-2023 08:28-0400 Respiratory rate 18 /min Dr. Matt Mendoza Work Phone: [facility] 04-06-2023 08:28-0400 SaO2% (BldA) [Mass fraction] 93 % Dr. Matt Mendoza Work Phone: [facility] 04-06-2023 08:28-0400 Systolic blood pressure 104 mm[Hg] Dr. Matt Mendoza Work Phone: [facility] 03-07-2023 06:48-0400 Body height 180.[address] Matt Mendoza Work Phone: [facility] 03-07-2023 06:48-0400 Body mass index (BMI) [Ratio] 45.3 kg/m2 Dr. Matt Mendoza Work Phone: [facility] 03-07-2023 06:48-0400 Body temperature 97.1 [degF] Dr. Matt Mendoza Work Phone: [facility] 03-07-2023 06:48-0400 Body weight 147.[address] Matt Mendoza Work Phone: [facility] 03-07-2023 06:48-0400 Diastolic blood pressure 78 mm[Hg] Dr. Matt Mendoza Work Phone: [facility] 03-07-2023 06:48-0400 Heart rate 96 /min Dr. Matt Mendoza Work Phone: [facility] 03-07-2023 06:48-0400 Inhaled oxygen flow rate 2 L/min Dr. Matt Mendoza Work Phone: [facility] 03-07-2023 06:48-0400 Respiratory rate 18 /min Dr. Matt Mendoza Work Phone: [facility] 03-07-2023 06:48-0400 SaO2% (BldA) [Mass fraction] 97 % Dr. Matt Mendoza Work Phone: [facility] 03-07-2023 06:48-0400 Systolic blood pressure 123 mm[Hg] Dr. Matt Mendoza Work Phone: [facility] 02-02-2023 10:35-0400 Body mass index (BMI) [Ratio] 45.5 kg/m2 Dr. Matt Mendoza Work Phone: [facility] 02-02-2023 10:35-0400 Body temperature 97.9 [degF] Dr. Matt Mendoza Work Phone: [facility] 02-02-2023 10:35-0400 Body weight 148.[address] Matt Mendoza Work Phone: [facility] 02-02-2023 10:35-0400 Diastolic blood pressure 76 mm[Hg] Dr. Matt Mendoza Work Phone: [facility] 02-02-2023 10:35-0400 Heart rate 109 /min Dr. Matt Mendoza Work Phone: [facility] 02-02-2023 10:35-0400 Inhaled oxygen flow rate 2 L/min Dr. Matt Mendoza Work Phone: [facility] 02-02-2023 10:35-0400 Respiratory rate 18 /min Dr. Matt Mendoza Work Phone: [facility] 02-02-2023 10:35-0400 SaO2% (BldA) [Mass fraction] 95 % Dr. Matt Mendoza Work Phone: [facility] 02-02-2023 10:35-0400 Systolic blood pressure 132 mm[Hg] Dr. Matt Mendoza Work Phone: [facility] 01-07-2023 08:36-0500 Body height 180 cm Angelic [place] [employer] OPERATOR HEAD Work Phone: [facility] 01-07-2023 08:36-0500 Body weight 144.24 kg Angelic Araseli [employer] OPERATOR HEAD Work Phone: [facility] 01-07-2023 08:36-0500 Diastolic blood pressure 80 mm[Hg] Angelic Araseli [employer] OPERATOR HEAD Work Phone: [facility] 01-07-2023 08:36-0500 Systolic blood pressure 110 mm[Hg] Angelic Araseli [employer] OPERATOR HEAD Work Phone: [facility] 12-22-2022 10:32-0500 Body mass index (BMI) [Ratio] 45.9 kg/m2 Dr. Matt Mendoza Work Phone: [facility] 12-22-2022 10:32-0500 Body temperature 95.5 [degF] Dr. Matt Mendoza Work Phone: [facility] 12-22-2022 10:32-0500 Body weight 145.[address] Matt Mendoza Work Phone: [facility] 12-22-2022 10:32-0500 Diastolic blood pressure 84 mm[Hg] Dr. Matt Mendoza Work Phone: [facility] 12-22-2022 10:32-0500 Heart rate 94 /min Dr. Matt Mendoza Work Phone: [facility] 12-22-2022 10:32-0500 Respiratory rate 18 /min Dr. Matt Mendoza Work Phone: [facility] 12-22-2022 10:32-0500 SaO2% (BldA) [Mass fraction] 96 % Dr. Matt Mendoza Work Phone: [facility] 12-22-2022 10:32-0500 Systolic blood pressure 116 mm[Hg] Dr. Matt Mendoza Work Phone: [facility] 12-14-2022 07:40-0500 Body height 180.[address] Matt Mendoza Work Phone: [facility] 12-14-2022 07:40-0500 Body mass index (BMI) [Ratio] 44.1 kg/m2 Dr. Matt Mendoza Work Phone: [facility] 12-14-2022 07:40-0500 Body temperature 97.3 [degF] Dr. Matt Mendoza Work Phone: [facility] 12-14-2022 07:40-0500 Body weight 143.[address] Matt Mendoza Work Phone: [facility] 12-14-2022 07:40-0500 Diastolic blood pressure 83 mm[Hg] Dr. Matt Mendoza Work Phone: [facility] 12-14-2022 07:40-0500 Heart rate 105 /min Dr. Matt Mendoza Work Phone: [facility] 12-14-2022 07:40-0500 Inhaled oxygen flow rate 2 L/min Dr. Matt Mendoza Work Phone: [facility] 12-14-2022 07:40-0500 Respiratory rate 17 /min Dr. Matt Mendoza Work Phone: [facility] 12-14-2022 07:40-0500 SaO2% (BldA) [Mass fraction] 96 % Dr. Matt Mendoza Work Phone: [facility] 12-14-2022 07:40-0500 Systolic blood pressure 151 mm[Hg] Dr. Matt Mendoza Work Phone: [facility] 12-08-2022 10:33-0500 Body mass index (BMI) [Ratio] 45.1 kg/m2 Dr. Matt Mendoza Work Phone: [facility] 12-08-2022 10:33-0500 Body temperature 95.7 [degF] Dr. Matt Mendoza Work Phone: [facility] 12-08-2022 10:33-0500 Body weight 142.[address] Matt Mendoza Work Phone: [facility] 12-08-2022 10:33-0500 Diastolic blood pressure 88 mm[Hg] Dr. Matt Mendoza Work Phone: [facility] 12-08-2022 10:33-0500 Heart rate 90 /min Dr. Matt Mendoza Work Phone: [facility] 12-08-2022 10:33-0500 Inhaled oxygen flow rate 2 L/min Dr. Matt Mendoza Work Phone: [facility] 12-08-2022 10:33-0500 Respiratory rate 16 /min Dr. Matt Mendoza Work Phone: [facility] 12-08-2022 10:33-0500 SaO2% (BldA) [Mass fraction] 96 % Dr. Matt Mendoza Work Phone: [facility] 12-08-2022 10:33-0500 Systolic blood pressure 128 mm[Hg] Dr. Matt Mendoza Work Phone: [facility] 12-06-2022 09:25-0500 Body weight 143.79 kg Samara Woo MD Work Phone: [facility] 12-06-2022 09:25-0500 Diastolic blood pressure 76 mm[Hg] Samara Woo MD Work Phone: [facility] 12-06-2022 09:25-0500 Heart rate 96 /min Samara Woo MD Work Phone: [facility] 12-06-2022 09:25-0500 SaO2% (BldA) [Mass fraction] 96 % Samara Woo MD Work Phone: [facility] 12-06-2022 09:25-0500 Systolic blood pressure 124 mm[Hg] Samara Woo MD Work Phone: [facility] 11-19-2022 08:29-0500 Body weight 141.98 kg Samara Woo MD Work Phone: [facility] 11-19-2022 08:29-0500 Diastolic blood pressure 78 mm[Hg] Samara Woo MD Work Phone: [facility] 11-19-2022 08:29-0500 Systolic blood pressure 122 mm[Hg] Samara Woo MD Work Phone: [facility] 11-18-2022 13:00-0500 Body height 177.[address] Matt Mendoza Work Phone: [facility] 11-18-2022 13:00-0500 Body weight 136.[address] Matt Mendoza Work Phone: [facility] 11-18-2022 13:00-0500 Heart rate 118 /min Dr. Matt Mendoza Work Phone: [facility] 11-18-2022 13:00-0500 Inhaled oxygen flow rate 1 L/min Dr. Matt Mendoza Work Phone: [facility] 11-18-2022 13:00-0500 SaO2% (BldA) [Mass fraction] 94 % Dr. Matt Mendoza Work Phone: [facility] 11-02-2022 06:33-0500 Body mass index (BMI) [Ratio] 43 kg/m2 Dr. Matt Mendoza Work Phone: [facility] 11-02-2022 06:33-0500 Body temperature 97.4 [degF] Dr. Matt Mendoza Work Phone: [facility] 11-02-2022 06:33-0500 Body weight 140.[address] Matt Mendoza Work Phone: [facility] 11-02-2022 06:33-0500 Diastolic blood pressure 74 mm[Hg] Dr. Matt Mendoza Work Phone: [facility] 11-02-2022 06:33-0500 Heart rate 98 /min Dr. Matt Mendoza Work Phone: [facility] 11-02-2022 06:33-0500 Inhaled oxygen flow rate 2 L/min Dr. Matt Mendoza Work Phone: [facility] 11-02-2022 06:33-0500 Respiratory rate 18 /min Dr. Matt Mendoza Work Phone: [facility] 11-02-2022 06:33-0500 SaO2% (BldA) [Mass fraction] 97 % Dr. Matt Mendoza Work Phone: [facility] 11-02-2022 06:33-0500 Systolic blood pressure 140 mm[Hg] Dr. Matt Mendoza Work Phone: [facility] 10-08-2022 09:17-0500 Body weight 148.33 kg Samara Woo MD Work Phone: [facility] 10-08-2022 09:17-0500 Diastolic blood pressure 82 mm[Hg] Samara Woo MD Work Phone: [facility] 10-08-2022 09:17-0500 Systolic blood pressure 126 mm[Hg] Samara Woo MD Work Phone: [facility] 09-28-2022 15:08-0500 Diastolic blood pressure 76 mm[Hg] Samara Woo MD Work Phone: [facility] 09-28-2022 15:08-0500 Systolic blood pressure 120 mm[Hg] Samara Woo MD Work Phone: [facility] 09-28-2022 14:29-0500 Body weight 152.73 kg Samara Woo MD Work Phone: [facility] 09-25-2022 16:00-0500 Heart rate 95 /min Dr. Matt Mendoza Work Phone: [facility] 09-25-2022 15:36-0500 Respiratory rate 19 /min Dr. Matt Mendoza Work Phone: [facility] 09-25-2022 13:12-0500 Body height 180.[address] Matt Mendoza Work Phone: [facility] Work Phone: 09-25-2022 13:12-0500 Body mass index (BMI) [Ratio] 46.5 kg/m2 Dr. Matt Mendoza Work Phone: [facility] 09-25-2022 13:12-0500 Body temperature 97.3 [degF] Dr. Matt Mendoza Work Phone: [facility] 09-25-2022 13:12-0500 Body weight 151.[address] Matt Mendoza Work Phone: [facility] 09-25-2022 13:12-0500 Diastolic blood pressure 68 mm[Hg] Dr. Matt Mendoza Work Phone: [facility] 09-25-2022 13:12-0500 Systolic blood pressure 124 mm[Hg] Dr. Matt Mendoza Work Phone: [facility] 09-25-2022 12:50-0500 Heart rate 92 /min Dr. Matt Mendoza Work Phone: [facility] 09-25-2022 12:50-0500 SaO2% (BldA) [Mass fraction] 97 % Dr. Matt Mendoza Work Phone: [facility] 09-25-2022 12:44-0500 Diastolic blood pressure 74 mm[Hg] Dr. Matt Mendoza Work Phone: [facility] 09-25-2022 12:44-0500 Systolic blood pressure 136 mm[Hg] Dr. Matt Mendoza Work Phone: [facility] 09-25-2022 12:23-0500 Body temperature 97.9 [degF] Dr. Matt Mendoza Work Phone: [facility] 09-25-2022 12:10-0500 Body height 177.[address] Matt Mendoza Work Phone: [facility] Work Phone: 09-25-2022 12:10-0500 Body mass index (BMI) [Ratio] 47.6 kg/m2 Dr. Matt Mendoza Work Phone: [facility] 09-25-2022 12:10-0500 Body weight 150.[address] Matt Mendoza Work Phone: [facility] 09-25-2022 11:46-0500 Inhaled oxygen flow rate 3 L/min Dr. Matt Mendoza Work Phone: [facility] 09-25-2022 11:46-0500 Respiratory rate 18 /min Dr. Matt Mendoza Work Phone: [facility] 09-21-2022 10:14-0500 Body weight 148.33 kg Samara Woo MD Work Phone: [facility] 09-21-2022 10:14-0500 Diastolic blood pressure 74 mm[Hg] Samara Woo MD Work Phone: [facility] 09-21-2022 10:14-0500 Heart rate 153 /min Samara Woo MD Work Phone: [facility] 09-21-2022 10:14-0500 Systolic blood pressure 110 mm[Hg] Samara Woo MD Work Phone: [facility] 09-21-2022 09:05-0500 Body weight 148.6 kg Macario Garner MD Work Phone: [facility] 09-21-2022 09:05-0500 Diastolic blood pressure 74 mm[Hg] Macario Garner MD Work Phone: [facility] 09-21-2022 09:05-0500 Heart rate 118 /min Macario Garner MD Work Phone: [facility] 09-21-2022 09:05-0500 SaO2% (BldA) [Mass fraction] 96 % Macario Garner MD Work Phone: [facility] 09-21-2022 09:05-0500 Systolic blood pressure 110 mm[Hg] Macario Garner MD Work Phone: [facility] 09-14-2022 10:25-0500 Body weight 146.97 kg Samara Woo MD Work Phone: [facility] 09-14-2022 10:25-0500 Diastolic blood pressure 82 mm[Hg] Samara Woo MD Work Phone: [facility] 09-14-2022 10:25-0500 Systolic blood pressure 115 mm[Hg] Samara Woo MD Work Phone: [facility] 08-31-2022 11:12-0400 Diastolic blood pressure 72 mm[Hg] Praneeth Moreau MD Work Phone: [facility] 08-31-2022 11:12-0400 Systolic blood pressure 111 mm[Hg] Praneeth Moreau MD Work Phone: [facility] 08-31-2022 09:19-0400 Body mass index (BMI) [Ratio] 43.2 kg/m2 Dr. Matt Mendoza Work Phone: [facility] 08-31-2022 09:19-0400 Body temperature 91.7 [degF] Dr. Matt Mendoza Work Phone: [facility] 08-31-2022 09:19-0400 Body weight 140.[address] Matt Mendoza Work Phone: [facility] 08-31-2022 09:19-0400 Diastolic blood pressure 78 mm[Hg] Dr. Matt Mendoza Work Phone: [facility] 08-31-2022 09:19-0400 Heart rate 126 /min Dr. Matt Mendoza Work Phone: [facility] 08-31-2022 09:19-0400 Inhaled oxygen flow rate 3 L/min Dr. Matt Mendoza Work Phone: [facility] 08-31-2022 09:19-0400 Respiratory rate 20 /min Dr. Matt Mendoza Work Phone: [facility] 08-31-2022 09:19-0400 SaO2% (BldA) [Mass fraction] 96 % Dr. Matt Mendoza Work Phone: [facility] 08-31-2022 09:19-0400 Systolic blood pressure 120 mm[Hg] Dr. Matt Mendoza Work Phone: [facility] 08-24-2022 08:58-0400 Body weight 141.52 kg Macario Garner MD Work Phone: [facility] 08-24-2022 08:58-0400 Diastolic blood pressure 74 mm[Hg] Macario Garner MD Work Phone: [facility] 08-24-2022 08:58-0400 Heart rate 113 /min Macario Garner MD Work Phone: [facility] 08-24-2022 08:58-0400 SaO2% (BldA) [Mass fraction] 94 % Macario Garner MD Work Phone: [facility] 08-24-2022 08:58-0400 Systolic blood pressure 134 mm[Hg] Macario Garner MD Work Phone: [facility] 08-05-2022 13:53-0400 Body height 180.[address] Matt Mendoza Work Phone: [facility] Work Phone: 08-05-2022 13:53-0400 Body mass index (BMI) [Ratio] 42 kg/m2 Dr. Matt Mendoza Work Phone: [facility] 08-05-2022 13:53-0400 Body temperature 96.4 [degF] Dr. Matt Mendoza Work Phone: [facility] 08-05-2022 13:53-0400 Body weight 136.[address] Matt Mendoza Work Phone: [facility] 08-05-2022 13:53-0400 Diastolic blood pressure 86 mm[Hg] Dr. Matt Mendoza Work Phone: [facility] 08-05-2022 13:53-0400 Heart rate 108 /min Dr. Matt Mendoza Work Phone: [facility] 08-05-2022 13:53-0400 Respiratory rate 16 /min Dr. Matt Mendoza Work Phone: [facility] 08-05-2022 13:53-0400 SaO2% (BldA) [Mass fraction] 97 % Dr. Matt Mendoza Work Phone: [facility] 08-05-2022 13:53-0400 Systolic blood pressure 126 mm[Hg] Dr. Matt Mendoza Work Phone: [facility] 07-27-2022 08:05-0400 Body weight 135.17 kg Indira Arevalo MD Work Phone: [facility] 07-27-2022 08:05-0400 Diastolic blood pressure 70 mm[Hg] Indira Arevalo MD Work Phone: [facility] 07-27-2022 08:05-0400 Systolic blood pressure 120 mm[Hg] Indira Arevalo MD Work Phone: [facility] 07-03-2022 23:50-0400 Heart rate 111 /min Dr. Matt Mendoza Work Phone: [facility] Work Phone: 07-03-2022 23:50-0400 Respiratory rate 16 /min Dr. Matt Mendoza Work Phone: [facility] Work Phone: 07-03-2022 23:50-0400 SaO2% (BldA) [Mass fraction] 96 % Dr. Matt Mendoza Work Phone: [facility] Work Phone: 07-03-2022 22:29-0400 Inhaled oxygen flow rate 3 L/min Dr. Matt Mendoza Work Phone: [facility] Work Phone: 07-03-2022 21:02-0400 Body height 180.[address] Matt Mendoza Work Phone: [facility] Work Phone: 07-03-2022 21:02-0400 Body mass index (BMI) [Ratio] 40.6 kg/m2 Dr. Matt Mendoza Work Phone: [facility] Work Phone: 07-03-2022 21:02-0400 Body temperature 95.8 [degF] Dr. Matt Mendoza Work Phone: [facility] Work Phone: 07-03-2022 21:02-0400 Body weight 131.[address] Matt Mendoza Work Phone: [facility] Work Phone: 07-03-2022 21:02-0400 Diastolic blood pressure 84 mm[Hg] Dr. Matt Mendoza Work Phone: [facility] Work Phone: 07-03-2022 21:02-0400 Systolic blood pressure 128 mm[Hg] Dr. Matt Mendoza Work Phone: [facility] Work Phone: 06-29-2022 08:29-0400 Body weight 132 kg Samara Woo MD Work Phone: [facility] 06-29-2022 08:29-0400 Diastolic blood pressure 64 mm[Hg] Samara Woo MD Work Phone: [facility] 06-29-2022 08:29-0400 Systolic blood pressure 108 mm[Hg] Samara Woo MD Work Phone: [facility] 06-18-2022 10:07-0400 Body mass index (BMI) [Ratio] 40.3 kg/m2 Dr. Matt Mendoza Work Phone: [facility] Work Phone: 06-18-2022 10:07-0400 Body temperature 97 [degF] Dr. Matt Mendoza Work Phone: [facility] Work Phone: 06-18-2022 10:07-0400 Body weight 131.[address] Matt Mendoza Work Phone: [facility] Work Phone: 06-18-2022 10:07-0400 Diastolic blood pressure 60 mm[Hg] Dr. Matt Mendoza Work Phone: [facility] Work Phone: 06-18-2022 10:07-0400 Heart rate 103 /min Dr. Matt Mendoza Work Phone: [facility] Work Phone: 06-18-2022 10:07-0400 Respiratory rate 16 /min Dr. Matt Mendoza Work Phone: [facility] Work Phone: 06-18-2022 10:07-0400 SaO2% (BldA) [Mass fraction] 94 % Dr. Matt Mendoza Work Phone: [facility] Work Phone: 06-18-2022 10:07-0400 Systolic blood pressure 102 mm[Hg] Dr. Matt Mendoza Work Phone: [facility] Work Phone: 06-01-2022 10:27-0400 Body weight 131.54 kg Samara Woo MD Work Phone: [facility] 06-01-2022 10:27-0400 Diastolic blood pressure 70 mm[Hg] Samara Woo MD Work Phone: [facility] 06-01-2022 10:27-0400 Systolic blood pressure 118 mm[Hg] Samara oWo MD Work Phone: [facility] 06-01-2022 08:51-0400 Body weight 131.81 kg Indira Arevalo MD Work Phone: [facility] 06-01-2022 08:51-0400 Diastolic blood pressure 70 mm[Hg] Indira Arevalo MD Work Phone: [facility] 06-01-2022 08:51-0400 Heart rate 106 /min Indira Arevalo MD Work Phone: [facility] 06-01-2022 08:51-0400 SaO2% (BldA) [Mass fraction] 96 % Indira Arevalo MD Work Phone: [facility] 06-01-2022 08:51-0400 Systolic blood pressure 118 mm[Hg] Indira Arevalo MD Work Phone: [facility] 05-07-2022 10:00-0400 Body height 180.[address] Matt Mendoza Work Phone: [facility] Work Phone: 05-07-2022 10:00-0400 Body mass index (BMI) [Ratio] 39.2 kg/m2 Dr. Matt Mendoza Work Phone: [facility] Work Phone: 05-07-2022 10:00-0400 Body temperature 97.5 [degF] Dr. Matt Mendoza Work Phone: [facility] Work Phone: 05-07-2022 10:00-0400 Body weight 127.[address] Matt Mendoza Work Phone: [facility] Work Phone: 05-07-2022 10:00-0400 Diastolic blood pressure 72 mm[Hg] Dr. Matt Mendoza Work Phone: [facility] Work Phone: 05-07-2022 10:00-0400 Heart rate 99 /min Dr. Matt Mendoza Work Phone: [facility] Work Phone: 05-07-2022 10:00-0400 Respiratory rate 18 /min Dr. Matt Mendoza Work Phone: [facility] Work Phone: 05-07-2022 10:00-0400 SaO2% (BldA) [Mass fraction] 97 % Dr. Matt Mendoza Work Phone: [facility] Work Phone: 05-07-2022 10:00-0400 Systolic blood pressure 100 mm[Hg] Dr. Matt Mendoza Work Phone: [facility] Work Phone: 05-06-2022 07:40-0400 Body mass index (BMI) [Ratio] 39.2 kg/m2 Dr. Matt Mendoza Work Phone: [facility] Work Phone: 05-06-2022 07:40-0400 Body temperature 98 [degF] Dr. Matt Mendoza Work Phone: [facility] Work Phone: 05-06-2022 07:40-0400 Body weight 127.[address] Matt Mendoza Work Phone: [facility] Work Phone: 05-06-2022 07:40-0400 Diastolic blood pressure 86 mm[Hg] Dr. Matt Mendoza Work Phone: [facility] Work Phone: 05-06-2022 07:40-0400 Heart rate 112 /min Dr. Matt Mendoza Work Phone: [facility] Work Phone: 05-06-2022 07:40-0400 Respiratory rate 17 /min Dr. Matt Mendoza Work Phone: [facility] Work Phone: 05-06-2022 07:40-0400 SaO2% (BldA) [Mass fraction] 98 % Dr. Matt Mendoza Work Phone: [facility] Work Phone: 05-06-2022 07:40-0400 Systolic blood pressure 110 mm[Hg] Dr. Matt Mendoza Work Phone: [facility] Work Phone: 05-04-2022 09:04-0400 Body weight 128.73 kg Ying Tatum MD Work Phone: [facility] 05-04-2022 09:04-0400 Diastolic blood pressure 70 mm[Hg] Ying Tatum MD Work Phone: [facility] 05-04-2022 09:04-0400 Systolic blood pressure 118 mm[Hg] Ying Tatum MD Work Phone: [facility] 04-06-2022 10:33-0400 Body weight 125.65 kg Ying Tatum MD Work Phone: [facility] 04-06-2022 10:33-0400 Diastolic blood pressure 74 mm[Hg] Ying Tatum MD Work Phone: [facility] 04-06-2022 10:33-0400 Systolic blood pressure 116 mm[Hg] Ying Tatum MD Work Phone: [facility] 03-15-2022 11:23-0400 Body height 178.4 cm Christy Abdalla MD Work Phone: [facility] 03-15-2022 11:23-0400 Body weight 126.28 kg Christy Abdalla MD Work Phone: [facility] 03-15-2022 11:23-0400 Diastolic blood pressure 90 mm[Hg] Christy Abdalla MD Work Phone: [facility] 03-15-2022 11:23-0400 Systolic blood pressure 120 mm[Hg] Christy Abdalla MD Work Phone: [facility] 02-02-2022 11:02-0400 Body mass index (BMI) [Ratio] 36.6 kg/m2 Dr. Matt Mendoza Work Phone: [facility] Work Phone: 02-02-2022 11:02-0400 Body temperature 98.2 [degF] Dr. Matt Mendoza Work Phone: [facility] Work Phone: 02-02-2022 11:02-0400 Body weight 119.[address] Matt Mendoza Work Phone: [facility] Work Phone: 02-02-2022 11:02-0400 Diastolic blood pressure 68 mm[Hg] Dr. Matt Mendoza Work Phone: [facility] Work Phone: 02-02-2022 11:02-0400 Heart rate 98 /min Dr. Matt Mendoza Work Phone: [facility] Work Phone: 02-02-2022 11:02-0400 Respiratory rate 16 /min Dr. Matt Mendoza Work Phone: [facility] Work Phone: 02-02-2022 11:02-0400 SaO2% (BldA) [Mass fraction] 98 % Dr. Matt Mendoza Work Phone: [facility] Work Phone: 02-02-2022 11:02-0400 Systolic blood pressure 100 mm[Hg] Dr. Matt Mendoza Work Phone: [facility] Work Phone: 02-02-2022 11:02-0400 Body height 180.[address] Randa Roblero Work Phone: [facility] Work Phone: 02-02-2022 11:02-0400 Body mass index (BMI) [Ratio] 36.6 kg/m2 Dr. Randa Roblero Work Phone: [facility] Work Phone: 02-02-2022 11:02-0400 Body temperature 98.2 [degF] Dr. Randa Roblero Work Phone: [facility] Work Phone: 02-02-2022 11:02-0400 Body weight 119.[address] Randa Roblero Work Phone: [facility] Work Phone: 02-02-2022 11:02-0400 Diastolic blood pressure 68 mm[Hg] Dr. Randa Roblero Work Phone: [facility] Work Phone: 02-02-2022 11:02-0400 Heart rate 98 /min Dr. Randa Roblero Work Phone: [facility] Work Phone: 02-02-2022 11:02-0400 Respiratory rate 16 /min Dr. Randa Roblero Work Phone: [facility] Work Phone: 02-02-2022 11:02-0400 SaO2% (BldA) [Mass fraction] 98 % Dr. Randa Roblero Work Phone: [facility] Work Phone: 02-02-2022 11:02-0400 Systolic blood pressure 100 mm[Hg] Dr. Randa Roblero Work Phone: [facility] Work Phone: 02-01-2022 08:05-0400 Body mass index (BMI) [Ratio] 36.5 kg/m2 Dr. Matt Mendoza Work Phone: [facility] Work Phone: 02-01-2022 08:05-0400 Body temperature 96.7 [degF] Dr. Matt Mendoza Work Phone: [facility] Work Phone: 02-01-2022 08:05-0400 Body weight 118.[address] Matt Mendoza Work Phone: [facility] Work Phone: 02-01-2022 08:05-0400 Diastolic blood pressure 66 mm[Hg] Dr. Matt Mendoza Work Phone: [facility] Work Phone: 02-01-2022 08:05-0400 Heart rate 122 /min Dr. Matt Mnedoza Work Phone: [facility] Work Phone: 02-01-2022 08:05-0400 Respiratory rate 16 /min Dr. Matt Mendoza Work Phone: [facility] Work Phone: 02-01-2022 08:05-0400 SaO2% (BldA) [Mass fraction] 90 % Dr. Matt Mendoza Work Phone: [facility] Work Phone: 02-01-2022 08:05-0400 Systolic blood pressure 98 mm[Hg] Dr. Matt Mendoza Work Phone: [facility] Work Phone: 02-01-2022 08:05-0400 Body mass index (BMI) [Ratio] 36.5 kg/m2 Dr. Randa Roblero Work Phone: [facility] Work Phone: 02-01-2022 08:05-0400 Body temperature 96.7 [degF] Dr. Randa Roblero Work Phone: [facility] Work Phone: 02-01-2022 08:05-0400 Body weight 118.[address] Randa Roblero Work Phone: [facility] Work Phone: 02-01-2022 08:05-0400 Diastolic blood pressure 66 mm[Hg] Dr. Randa Roblero Work Phone: [facility] Work Phone: 02-01-2022 08:05-0400 Heart rate 122 /min Dr. Randa Roblero Work Phone: [facility] Work Phone: 02-01-2022 08:05-0400 Respiratory rate 16 /min Dr. Randa Roblero Work Phone: [facility] Work Phone: 02-01-2022 08:05-0400 SaO2% (BldA) [Mass fraction] 90 % Dr. Randa Roblero Work Phone: [facility] Work Phone: 02-01-2022 08:05-0400 Systolic blood pressure 98 mm[Hg] Dr. Randa Roblero Work Phone: [facility] Work Phone: 12-29-2021 11:43-0500 Body weight 113.[address] Randa Roblero Work Phone: [facility] Work Phone: 12-29-2021 11:43-0500 Heart rate 112 /min Dr. Randa Roblero Work Phone: [facility] Work Phone: 12-29-2021 11:43-0500 SaO2% (BldA) [Mass fraction] 90 % Dr. Randa Roblero Work Phone: [facility] Work Phone: 12-25-2021 10:06-0500 Body mass index (BMI) [Ratio] 35.2 kg/m2 Dr. Randa Roblero Work Phone: [facility] Work Phone: 12-25-2021 10:06-0500 Body temperature 95.9 [degF] Dr. Randa Roblero Work Phone: [facility] Work Phone: 12-25-2021 10:06-0500 Body weight 114.[address] Randa Roblero Work Phone: [facility] Work Phone: 12-25-2021 10:06-0500 Diastolic blood pressure 76 mm[Hg] Dr. Randa Roblero Work Phone: [facility] Work Phone: 12-25-2021 10:06-0500 Heart rate 100 /min Dr. Randa Roblero Work Phone: [facility] Work Phone: 12-25-2021 10:06-0500 Respiratory rate 20 /min Dr. Randa Roblero Work Phone: [facility] Work Phone: 12-25-2021 10:06-0500 SaO2% (BldA) [Mass fraction] 99 % Dr. Randa Roblero Work Phone: [facility] Work Phone: 12-25-2021 10:06-0500 Systolic blood pressure 110 mm[Hg] Dr. Randa Roblero Work Phone: [facility] Work Phone: 12-15-2021 06:09-0500 Body mass index (BMI) [Ratio] 34.8 kg/m2 Dr. Randa Roblero Work Phone: [facility] Work Phone: 12-15-2021 06:09-0500 Body temperature 97.2 [degF] Dr. Randa Roblero Work Phone: [facility] Work Phone: 12-15-2021 06:09-0500 Body weight 113.[address] Randa Roblero Work Phone: [facility] Work Phone: 12-15-2021 06:09-0500 Diastolic blood pressure 82 mm[Hg] Dr. Randa Roblero Work Phone: [facility] Work Phone: 12-15-2021 06:09-0500 Heart rate 108 /min Dr. Randa Roblero Work Phone: [facility] Work Phone: 12-15-2021 06:09-0500 Respiratory rate 18 /min Dr. Randa Roblero Work Phone: [facility] Work Phone: 12-15-2021 06:09-0500 SaO2% (BldA) [Mass fraction] 99 % Dr. Randa Roblero Work Phone: [facility] Work Phone: 12-15-2021 06:09-0500 Systolic blood pressure 116 mm[Hg] Dr. Randa Roblero Work Phone: [facility] Work Phone: 11-19-2021 07:30-0500 SaO2% (BldA) [Mass fraction] 94 % Dr. Randa Roblero Work Phone: [facility] Work Phone: 11-19-2021 07:04-0500 Body temperature 97.8 [degF] Dr. Randa Roblero Work Phone: [facility] Work Phone: 11-19-2021 07:04-0500 Diastolic blood pressure 57 mm[Hg] Dr. Randa Roblero Work Phone: [facility] Work Phone: 11-19-2021 07:04-0500 Heart rate 97 /min Dr. Randa Roblero Work Phone: [facility] Work Phone: 11-19-2021 07:04-0500 Respiratory rate 16 /min Dr. Randa Roblero Work Phone: [facility] Work Phone: 11-19-2021 07:04-0500 Systolic blood pressure 115 mm[Hg] Dr. Randa Roblero Work Phone: [facility] Work Phone: 11-17-2021 09:08-0500 Body weight 107.[address] Randa Roblero Work Phone: [facility] Work Phone: 11-11-2021 09:57-0500 Body mass index (BMI) [Ratio] 32.3 kg/m2 Dr. Randa Roblero Work Phone: [facility] Work Phone: Encounters Encounter Date Encounter Type Care Provider Facility Start: 05-21-2025 Encounter for genera l adult medical examination without abnormal findings [facility] Start: 05-16-2025 End: 05-16-[address] Matt Mendoza MD [facility] Work Phone: Start: 05-16-2025 End: 05-16-[address] Matt Mendoza MD [facility] Start: 05-16-2025 End: 05-16-[address] Matt Mendoza MD Work Phone: -[facility] Start: 05-16-2025 End: 05-16-[facility] Start: 03-11-2025 End: 03-11-2025 Patient encounter procedure Zacarias GIRON Work Phone: [facility] Comment on above: Bacterial sinusitis (Primary Dx) Start: 03-11-2025 End: 03-11-2025 ambulatory [facility] Facility:[facility] Start: 11-15-2024 End: 11-15-2024 ambulatory [facility] Facility:[facility] Start: 11-15-2024 End: 11-15-2024 ambulatory [facility] Facility:[facility] Start: 11-05-2024 End: 11-05-2024 ambulatory [facility] Facility:[facility] Start: 11-05-2024 End: 11-05-2024 Office outpatient visit 15 minutes Vicente Rivera APRN.SUGAR REPROCESS OPERATOR HEAD Work Phone: [facility] Comment on above: Viral illness (Prima ry Dx) Start: 06-07-2024 End: 06-07-2024 ambulatory EDILMA SANDHU OB/Gynecology Start: 06-07-2024 End: 06-07-2024 Patient encounter procedure [employer] OB/Gynecology Start: 05-28-2024 End: 05-28-2024 ambulatory [facility] Facility:[facility] Start: 05-23-2024 End: 05-23-2024 [facility] Facility:[facility] Start: 05-17-[address] Honey Mendoza MD Work Phone: [facility] Start: 05-10-2024 Telephone encounter Edilma balderas APRN.SUGAR REPROCESS OPERATOR HEAD Work Phone: [address] [place] [address] Comment on above: Orders (Pelvic US WH I); Insurance Authorization (ONN Insurance/CCN Denied) Start: 05-08-2024 End: 05-08-2024 ambulatory [facility] Facility:[facility] Start: 05-08-2024 End: 05-08-2024 Patient encounter procedure Donna Moreau APRN.SUGAR REPROCESS OPERATOR HEAD Work Phone: [facility] Comment on above: Sore throat (Primary Dx) Start: 04-26-2024 Telephone encounter Edilma balderas LINE PILOT.SUGAR REPROCESS OPERATOR HEAD Work Phone: OB/Gynecology Comment on above: Results Start: 04-25-2024 End: 04-25-2024 ambulatory EDILMA SANDHU Facility:[facility] Start: 04-25-2024 End: 04-25-2024 Patient encounter procedure Edilma Sandhu LINE PIL[employer].SUGAR REPROCESS OPERATOR HEAD Work Phone: OB/Gynecology Comment on above: Irregular bleeding ( Primary Dx) Start: 04-24-2024 ambulatory Ying Tatum MD Work Phone: OB/Gynecology Comment on above: Length of period Start: 01-30-2024 End: 01-30-2024 Subsequent hospital visit by physician [facility] Work Phone: Radiology Comment on above: Cough, persistent [R 05.3] Start: 01-29-2024 End: 01-29-2024 Emergency department patient visit Dr. Matt Mendoza Work Phone: [facility] Work Phone: Start: 01-10-2024 End: 01-10-[address] Matt Mendoza Work Phone: [facility]-Pulmonary Medicine [facility] Work Phone: Start: 01-09-2024 End: 01-09-[address] Matt Mendoza Work Phone: [facility] Work Phone: Start: 01-09-2024 End: 01-09-[address] Matt Mendoza Work Phone: [facility]-Laboratory, [facility] Start: 01-05-2024 End: 01-05-[address] Matt Mendoza Work Phone: [facility] Work Phone: Start: 01-05-2024 End: 01-05-[address] Matt Mendoza Work Phone: [facility] Internal Medicine Work Phone: Start: 12-31-2023 End: 01-01-2024 Emergency department patient visit Dr. Matt Mendoza Work Phone: [facility] Work Phone: Start: 09-13-2023 ambulatory Samara maria MD Work Phone: OB/Gynecology Comment on above: Question Start: 09-07-2023 End: 09-07-[address] Matt Mendoza Work Phone: [facility] Medicine Work Phone: Start: 09-03-2023 End: 09-03-2023 Patient encounter procedure Lizet Caicedo LINE PILOT.SUGAR REPROCESS OPERATOR HEAD Work Phone: [facility] Comment on above: Rhinosinusitis (Prim oralia Dx); Acute otitis media, bilateral Start: 08-01-2023 End: 08-01-2023 Office outpatient visit 15 minutes Vicente Rivera LINE PIL[employer].SUGAR REPROCESS OPERATOR HEAD Work Phone: [facility] Comment on above: Sore throat (Primary Dx); Viral illness Start: 06-13-2023 End: 06-13-2023 Patient encounter procedure Donna Moreau APRN.SUGAR REPROCESS OPERATOR HEAD Work Phone: [facility] Comment on above: History of blood herman ts (Primary Dx) Start: 04-23-2023 End: 04-23-2023 Emergency department patient visit Dr. Matt Mendoza Work Phone: [facility] Start: 04-06-2023 End: 04-06-[address] Matt Mendoza Work Phone: [facility] Work Phone: Start: 04-06-2023 End: 04-06-[address] Matt Mendoza Work Phone: [facility]-Laboratory, Specimen Start: 04-06-2023 End: 04-06-[address] Matt Mendoza Work Phone: [facility] Internal Medicine Start: 03-24-2023 End: 03-24-2023 Subsequent hospital visit by physician [facility] Work Phone: Radiology Comment on above: Left foot pain [M79. 672] Start: 03-24-2023 End: 03-24-[address] Matt Mendoza Work Phone: [facility] Work Phone: Start: 03-24-2023 End: 03-24-[address] [facility] Start: 03-09-2023 End: 03-09-[address] [facility] Start: 03-07-2023 End: 03-07-[address] [facility] Start: 02-02-2023 End: 02-02-[address] Matt Mendoza Work Phone: [facility] Internal Medicine Start: 01-07-2023 End: 01-07-2023 Patient encounter procedure Angelic Marx APRN.CNP Work Phone: OB/Gynecology Comment on above: Ingrown hair (Primar y Dx) Start: 01-06-2023 ambulatory Samara maria MD Work Phone: OB/Gynecology Comment on above: Post C- section ques tion Start: 12-22-2022 End: 12-22-[address] Matt Mendoza Work Phone: [facility] Work Phone: Start: 12-22-2022 End: 12-22-[address] Matt Mendoza Work Phone: [facility], Specimen Start: 12-22-2022 End: 12-22-[address] Matt Mendoza Work Phone: [facility] Internal [facility] Start: 12-14-2022 End: 12-14-[address] [facility] Start: 12-08-2022 End: 12-08-[address] Matt Mendoza Work Phone: [facility] Work Phone: Start: 12-08-2022 End: 12-08-[address] Matt Mendoza Work Phone: [facility] Internal Medicine Start: 12-06-2022 End: 12-06-2022 Patient encounter procedure Samara Woo MD Work Phone: OB/Gynecology Comment on above: Nexplanon insertion (Primary Dx) Start: 11-19-2022 End: 11-19-2022 Patient encounter procedure Samara Woo MD Work Phone: OB/Gynecology Comment on above: care and examination (Primary Dx); Nexplanon insertion Start: 11-19-2022 Non-patient / Non-visit Dr. Amrik Mendoza Work Phone: [facility] Start: 11-18-2022 End: 11-18-[address] Matt Mendoza Work Phone: [facility] Work Phone: Start: 11-18-2022 End: 11-18-[address] Matt Mendoza Work Phone: [facility]-Pulmonary Services/Neurology Start: 11-16-2022 Non-patient / Non-visit Dr. Amrik Mendoza Work Phone: [facility] Start: 11-16-2022 End: 11-16-[address] Matt Mendoza Work Phone: [facility] Work Phone: Start: 11-16-2022 End: 11-16-[address] Matt Mendoza Work Phone: [facility]-Pulmonary Services/Neurology Start: 11-08-2022 ambulatory Samara maria MD Work Phone: [facility] Start: 11-08-2022 Patient encounter procedure Samara Woo MD Work Phone: OB/Gynecology Comment on above: Referral for therapi st Start: 11-02-2022 End: 11-02-[address] [facility] Start: 10-26-2022 End: 10-26-[address] Matt Mendoza Work Phone: [facility] Start: 10-18-2022 End: 10-18-[address] 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 Matt Mendoza Work Phone: [facility]Emergency Department Start: 09-25-2022 End: 09-25-[address] Matt Mendoza Work Phone: [facility] Work Phone: Start: 09-25-2022 End: 09-25-[address] [facility] Start: 09-24-2022 ambulatory Samara maria MD Work Phone: OB/Gynecology Comment on above: Sinus infection, gre en mucous in throat Start: 09-24-2022 Telephone encounter Samara Woo MD Work Phone: OB/Gynecology Comment on above: cancelled c Section at [facility] Start: 09-21-2022 End: 09-21-2022 Patient encounter procedure Macario Garner MD Work Phone: Maternal Medicine Comment on above: COVID-19 long hauler manifesting chronic dyspnea; COVID19 with history of tracheostomy; long COVID; supplemental O2 requirement; Obesity in ; History of DVT (deep vein thrombosis); History of depression 36 weeks gestation o f (Primary Dx); COVID-19 long hauler manifesting chronic dyspnea; Obesity in ; High-risk in third trimester Start: 09-14-2022 End: 09-14-2022 Patient encounter procedure Samara Woo MD Work Phone: OB/Gynecology Comment on above: COVID-19 long hauler manifesting chronic dyspnea (Primary Dx); Obesity in ; 35 weeks gestation of ; High-risk in third trimester Start: 08-31-2022 End: 08-31-2022 Patient encounter procedure Praneeth Moreau MD Work Phone: OB/Gynecology Comment on above: Obesity in (Primary Dx) Start: 08-31-2022 End: 08-31-[address] Matt Mendoza Work Phone: [facility]Pulmonary Medicine [facility] Start: 08-24-2022 End: 08-24-2022 Patient encounter procedure Macario Garner MD Work Phone: Maternal Medicine Comment on above: COVID19 with history of tracheostomy; long COVID; supplemental O2 requirement (Primary Dx); Abnormal glucose complicating ; Obesity in ; History of DVT (deep vein thrombosis); History of depression; care 32 weeks gestation o f (Primary Dx); Supervision of high risk in third trimester; COVID-19 chasity lyles manifesting chronic dyspnea Start: 08-05-2022 End: 08-05-[address] Matt Mendoza Work Phone: [facility] Work Phone: Start: 08-05-2022 End: 08-05-[address] Matt Mendoza Work Phone: [facility]-Laboratory, Specimen Start: 08-05-2022 End: 08-05-[address] Matt Mendoza Work Phone: [facility] Medicine Start: 07-28-2022 Telephone encounter Samara Woo MD Work Phone: OB/Gynecology Comment on above: Orders (3 hour gluco se) Start: 07-27-2022 End: 07-27-2022 Patient encounter procedure Indira Arevalo MD Work Phone: Maternal Medicine Comment on above: Obesity in (Primary Dx); 28 weeks gestation of Supervision of high risk in third trimester (Primary Dx); Obesity in ; 28 weeks gestation of ; Need for vaccination Start: 07-03-2022 End: 07-04-2022 Emergency department patient visit Dr. Matt Mendoza Work Phone: [facility]Emergency Department Start: 06-29-2022 End: 06-29-2022 Patient encounter procedure Samara Woo MD Work Phone: OB/Gynecology Comment on above: 24 weeks gestation o f (Primary Dx); High-risk in second trimester Start: 06-18-2022 End: 06-18-[address] Matt Mendoza Work Phone: [facility] Start: 06-01-2022 End: 06-01-2022 Patient encounter procedure Samara Woo MD Work Phone: OB/Gynecology Comment on above: Obesity in (Primary Dx); Supervision of high risk in second trimester; 20 weeks gestation of Postinflammatory pul monary fibrosis (HCC) (Primary Dx); History of depression; History of DVT (deep vein thrombosis); Obesity in ; History of tachycardia; History of COVID-19; Encounter for anatomic survey; 20 weeks gestation of Start: 05-10-2022 Telephone encounter Christy kohler MD Work Phone: OB/Gynecology Comment on above: breast pump Start: 05-07-2022 End: 05-07-[address] Matt Mendoza Work Phone: [facility]-Laboratory, Specimen Start: 05-07-2022 End: 05-07-[address] Matt Mendoza Work Phone: [facility] Internal Medicine Start: 05-06-2022 End: 05-06-[address] Matt Mendoza Work Phone: [facility]-Pulmonary Medicine [facility] Start: 05-04-2022 End: 05-04-2022 Patient encounter procedure Ying Tatum MD Work Phone: OB/Gynecology Comment on above: Obesity in (Primary Dx); Supervision of high risk in second trimester; 16 weeks gestation of Start: 04-09-2022 Telephone encounter Indira sanches MD Work Phone: Maternal Medicine Comment on above: First Seq Results Start: 04-06-2022 ambulatory Christy Zamora Work Phone: OB/Gynecology Comment on above: Question regarding R UBELLA IGG AB Start: 04-06-2022 End: 04-06-2022 Patient encounter procedure Ying Tatum MD Work Phone: OB/Gynecology Comment on above: Supervision of high risk in second trimester (Primary Dx); Encounter for screening for nuchal translucency; Obesity in ; 12 weeks gestation of Encounter for (NT) n uchal translucency scan (Primary Dx); 12 weeks gestation of Start: 03-17-2022 Telephone encounter Christy kohler MD Work Phone: Obstetrics/Gynecology Comment on above: Forms Start: 03-15-2022 End: 03-15-2022 Patient encounter procedure Christy Abdalla MD Work Phone: OB/Gynecology Comment on above: Encounter for prenat al care in first trimester of first (Primary Dx); 9 weeks gestation of ; Obesity in ; History of DVT (deep vein thrombosis); History of COVID-19; History of depression; Tachycardia Start: 03-11-2022 End: 03-11-2022 Nursing evaluation of patient and report Nurse [facility] Work Phone: OB/Gynecology Comment on above: Supervision of high risk , antepartum (Primary Dx); History of COVID-19; History of tachycardia; History of DVT (deep vein thrombosis); Obesity in ; History of depression; Nausea and vomiting during ; Family history of congenital heart defect; Patient request for diagnostic testing Start: 03-11-2022 End: 06-01-2022 Patient requested procedure Nurse [facility] Work Phone: OB/Gynecology Start: 02-10-2022 End: 02-10-[address] Ric Lee Work Phone: [facility] Start: 02-02-2022 End: 02-02-[address] Randa [facility]lero [facility] Start: 02-01-2022 End: 02-01-[address] Randa Roblero Work Phone: [facility]-Laboratory, [facility] Start: 01-29-2022 End: 01-29-[address] Ric Lee Work Phone: [facility]-Speech Therapy Start: 01-29-[address] Randa [facility]lero [facility] Start: 01-04-2022 ambulatory [facility] y:[facility] Start: 12-29-2021 Non-patient / Non-visit Dr. Connor Roblero Work Phone: [facility] Start: 12-29-2021 End: 12-29-[address] Randa Roblero Work Phone: [facility]-Pulmonary Services/Neurology Start: 12-25-2021 Non-patient / Non-visit Dr. Connor Roblero Work Phone: [facility] Start: 12-25-2021 End: 12-25-[address] Randa Roblero Work Phone: [facility] Internal Medicine Start: 12-25-2021 End: 12-25-[address] Randa [facility]lero [facility] Start: 12-15-2021 End: 12-15-[address] Randa Roblero [facility] Start: 11-19-2021 Non-patient / Non-visit Dr. Connor Roblero Work Phone: [facility] Start: 11-18-2021 Non-patient / Non-visit Dr. Connor Roblero Work Phone: [facility] Start: 11-15-2021 Non-patient / Non-visit Dr. Connor Roblero Work Phone: [facility] Start: 11-13-2021 Non-patient / Non-visit Dr. Connor Roblero Work Phone: [facility] Start: 11-11-2021 Non-patient / Non-visit Dr. Connor Roblero Work Phone: [facility] Start: 11-10-2021 Non-patient / Non-visit Dr. Connor Roblero Work Phone: [facility] Start: 11-09-2021 End: 11-19-2021 Evaluation and management of inpatient Dr. Randa Roblero Work Phone: [facility]Rehab Unit Start: 10-13-2021 End: 11-09-2021 Evaluation and management of inpatient BRITTANEY ALVARADO Facility:[facility] Start: 10-09-2021 ambulatory ERNESTO BLAIR Facility: [facility] Start: 10-06-2021 End: 10-13-2021 ambulatory [facility] Facility:[facility] Start: 08-14-2021 End: 10-06-2021 Evaluation and management of inpatient SHAREE BOX Facility:[facility] Start: 08-03-2021 End: 08-14-2021 Evaluation and management of inpatient [facility] Procedures Date Procedure Procedure Detail Performing Clinician Start: 05-16-2025 Vitamin D, 25-hydrox y measurement Dr. Matt Mendoza MD Work Phone: Comment on above: Vitamin D StatusDefi ciency: <20 ng/mL (50nmol/L)Insufficiency: 20-30 ng/mL (50-75 nmol/L)Sufficiency: 30-100 ng/mL (75-250 nmol/L)Toxicity: >100 ng/mL (>250 nmol/L) Start: 06-07-2024 Us pelvic nonobstetr ic real-time image complete Edilma Sandhu LINE PILOT.SUGAR REPROCESS OPERATOR HEAD Work Phone: Start: 05-08-2024 STREP A MOLECULAR (POC) Donna Moreau LINE PILOT.SUGAR REPROCESS OPERATOR HEAD Work Phone: Start: 01-30-2024 Radiologic exam ches t 2 views Janae Valencia LINE PILOT.SUGAR REPROCESS OPERATOR HEAD Work Phone: Start: 12-31-2023 Plain chest X-ray Dr. Honey Mendoza Work Phone: Start: 12-31-2023 SARS-CoV-2, Influenz a & RSV (PCR) Dr. Matt Mendoza Work Phone: Start: 08-01-2023 Sars-cov-2 detection by dna/rna Vicente Rivera LINE PILOT.SUGAR REPROCESS OPERATOR HEAD Work Phone: Start: 08-01-2023 STREP A MOLECULAR (POC) Todd Drew LINE PILOT.SUGAR REPROCESS OPERATOR HEAD Work Phone: Start: 03-24-2023 Radex ankle complete minimum 3 views Zacarias GIRON Work Phone: Start: 12-06-2022 Urine test visual color cmprsn meths Samara Woo MD Work Phone: Start: 09-28-2022 URINE OB DIP B/O Gerardo Woo MD Work Phone: Start: 09-25-2022 Plain chest X-ray Dr. Honey Mendoza Work Phone: Start: 09-21-2022 URINE OB DIP B/O Gerardo Woo MD Work Phone: Start: 09-21-2022 Us preg uterus after 1st trimest 10/31 gestation Praneeth Moreau MD Work Phone: Start: 09-14-2022 URINE OB DIP B/O Gerardo Woo MD Work Phone: Start: 08-31-2022 Plain chest X-ray Dr. Honey Mendoza Work Phone: Start: 08-24-2022 URINE OB DIP B/O Praneeth Moreau MD Work Phone: Start: 08-24-2022 Us preg uterus after 1st trimest 10/31 gestation Praneeth Moreau MD Work Phone: Start: 07-27-2022 URINE OB DIP B/O Praneeth Moreau MD Work Phone: Start: 07-27-2022 Us preg uterus after 1st trimest 10/31 gestation Samara Woo MD Work Phone: Start: 07-03-2022 CT angiography of ch est with contrast Dr. Matt Mendoza Work Phone: Start: 07-03-2022 Plain chest X-ray Dr. Honey Mendoza Work Phone: Start: 06-29-2022 URINE OB DIP B/O Gerardo Woo MD Work Phone: Start: 06-01-2022 Us preg uterus after 1st trimest 10/31 gestation Ying Tatum MD Work Phone: Start: 05-04-2022 URINE OB DIP B/O Ying Tatum MD Work Phone: Start: 04-06-2022 URINE OB DIP B/O Ying Tatum MD Work Phone: Start: 04-06-2022 Us nuchal translucency 1st gestation Christy Abdalla MD Work Phone: Start: 02-10-2022 CT of chest without contrast Dr. Ric Lee Work Phone: Start: 11-13-2021 End: 11-13-2021 Measurement of occult blood in stool specimen using immunoassay Dr. Randa Roblero Work Phone: Start: 10-03-2021 Moni GARCIA HNS Comment on above: Order Comment: For i ndwelling catheters, specimen collection is acceptable on catheter day 1 and 2 only. Sorensen top vacutainer. Urine must be to the fill line to process (4mls). If minimum volume, send urine in a yellow top vacutainer tube.For indwelling catheters, specimen collection is acceptable on catheter day 1 and 2 only. ? Performed By: #### U R ####[facility] (DEFAULT)[address] [place] [id number] Start: 08-29-2021 Antibody screen ERNESTO ROSSY Comment on above: Performed By: #### X M ####[facility] (DEFAULT)[address] [place] [id number] Start: 08-26-2021 Antibody screen ERNESTO BLAIR Comment on above: Performed By: #### X M ####[facility] (DEFAULT)[address] [place] [id number] Start: 08-23-2021 Antibody screen ERNESTO ROSSY Comment on above: Performed By: #### X M ####[facility] (DEFAULT)[address] [place] [id number] Start: 08-20-2021 Antibody screen ERNESTO BLAIR Comment on above: Performed By: #### X M ####[facility] (DEFAULT)[address] [place] [address] Start: 08-17-2021 Antibody screen ERNESTO ROSSY Comment on above: Performed By: #### X M ####[facility] (DEFAULT)[address] [place] [id number] Start: 08-14-2021 Antibody screen ERNESTO JOHNS Comment on above: Performed By: #### X M ####[facility] (DEFAULT)[address] [place] [id number] Bacteria identificat ion test Dr. Matt Mendoza Work Phone: H/O: tracheostomy History of tracheostomy Dr. Randa Roblero Work Phone: Comment on above: decannulated on 10/01 02/18 Investigation of transfusion reaction Dr. Matt Mendoza Work Phone: Respiratory microbia l culture Dr. Matt Mendoza Work Phone: SARS-CoV-2 & FLU Ant igen (Rapid) Dr. Matt Mendoza Work Phone: SARS-CoV-2 & FLU Ant igen (Rapid) Dr. Matt Mendoza Work Phone: Plan of Treatment Date Care Activity Detail Author Start: 07-27-2032 Urine microalbumin profile [facility] Start: 07-01-2025 Influenza vaccination Influenza Vaccine (Season Ended) [facility] Start: 03-15-2025 PAP TESTING PAP TESTING [facility] Start: 03-15-2025 Screening for malignant neoplasm of cervix Cervical Cancer Screening [facility] Start: 07-01-2024 Covid-19 Vaccine ( season) Covid-19 Vaccine ( season) [facility] Start: 07-01-2024 Covid-19 Vaccine ( season) Covid-19 Vaccine ( season) [facility] Start: 07-01-2024 Influenza vaccination [facility] Start: 06-07-2024 End: 06-07-2024 ambulatory 06/07/2024 9:30 AM EDT Procedure OB/Gynecology [address] [place] [address] Irregular bleeding [N92.6] OB/Gynecology Comment on above: Irregular bleeding [N92.6] Start: 04-25-2024 End: 07-25-2024 Hemoglobin A1c in Blood [facility] Work Phone: Comment on above: Expected: 04/25/2024, Expires: Start: 04-25-2024 End: 07-25-2024 Hepatitis B virus surface Ag [Presence] in Serum [facility] Comment on above: Expected: 04/25/2024, Expires: 4 Start: 04-25-2024 End: 07-25-2024 Hepatitis C virus Ab [Presence] in Serum [facility] Comment on above: Expected: 04/25/2024, Expires: Start: 04-25-2024 End: 07-25-2024 HIV 1+2 Ab [Presence] in Serum or Plasma by Immunoassay [facility] Comment on above: Expected: 04/25/2024, Expires: 4 Start: 04-25-2024 End: 07-25-2024 SYPHILIS TOTAL W/REFLEX [facility] Comment on above: Expected: 04/25/2024, Expires: Start: 04-25-2024 End: 07-25-2024 Thyrotropin [Units/volume] in Serum or Plasma [facility] Comment on above: Expected: 04/25/2024, Expires: Start: 04-25-2024 End: 07-25-2024 Thyroxine (T4) free [Mass/volume] in Serum or Plasma [facility] Comment on above: Expected: 04/25/2024, Expires: 4 Start: 04-25-2024 End: 04-25-2025 US Pelvis PELVIC US [facility] Anc Imaging Routine Irregular bleeding Expected: 04/25/2024, Expires: 04/25/2025 [facility] Comment on above: Expected: 04/25/2024, Expires: 5 Start: 04-25-2024 End: 04-25-2024 Patient encounter procedure 04/25/2024 9:30 AM EDT Office Visit OB/Gynecology [address] [place] [address] Edilma Sandhu APRN.SUGAR REPROCESS OPERATOR HEAD [address] [place] [address] discuss abnormal bleeding with nexplanon OB/Gynecology Comment on above: discuss abnormal bleeding with nexplanon Start: 01-29-2024 [facility] Start: 01-01-2024 [facility] Start: 10-31-2023 Behavioral Health Screening Behavioral Health Screening [facility] Start: 09-07-2023 Patient referral [facility] Work Phone: Start: 07-01-2023 Covid-19 Vaccine ( season) Covid-19 Vaccine ( season) [facility] Start: 07-01-2023 Influenza vaccination [facility] Start: 03-15-2023 CHLAMYDIA SCREENING (18-24) CHLAMYDIA SCREENING (18-24) [facility] Start: 03-15-2023 GC (GONORRHEA) SCREENING (18-24) GC (GONORRHEA) SCREENING (18-24) [facility] Start: 10-31-2022 DEPRESSION ASSESSMENT DEPRESSION ASSESSMENT [facility] Start: 09-29-2022 End: 11-29-2022 CBC panel - Blood by Automated count CBC Lab Routine Supervision of high risk in third trimester Expected: 09/29/2022, Expires: 11/29/2022 [facility] Work Phone: Comment on above: Expected: 09/29/2022, Expires: 3 Start: 09-29-2022 End: 11-29-2022 Comprehensive metabolic 2000 panel - Serum or Plasma COMP METABOLIC PANEL Lab Routine Supervision of high risk in third trimester Expected: 09/29/2022, Expires: 11/29/2022 [facility] Work Phone: Comment on above: Expected: 09/29/2022, Expires: 3 Start: 09-29-2022 End: 11-29-2022 TYPE + SCREEN TYPE + SCREEN Blood Bank Routine Supervision of high risk in third trimester Expected: 09/29/2022, Expires: 11/29/2022 [facility] Work Phone: Comment on above: Expected: 09/29/2022, Expires: 3 Start: 09-25-2022 Nonstress test [facility] Start: 09-25-2022 Obstetric monitoring [facility] Start: 09-25-2022 Vital signs measurements [facility] Start: 09-25-2022 [facility] Start: 08-24-2022 End: 08-24-2023 OBSTETRIC ULTRASOUND [facility] OBSTETRIC ULTRASOUND [facility] Anc Imaging Routine COVID-19 long hauler manifesting chronic dyspnea Expected: 08/24/2022, Expires: 08/24/2023 [facility] Work Phone: Comment on above: Expected: 08/24/2022, Expires: 3 Start: 07-01-2022 Influenza vaccination [facility] Start: 06-29-2022 End: 08-29-2022 CBC W Auto Differential panel - Blood CBC + DIFF Lab Routine 24 weeks gestation of Expected: 06/29/2022, Expires: 08/29/2022 [facility] Work Phone: Comment on above: Expected: 06/29/2022, Expires: 2 Start: 06-29-2022 End: 08-29-2022 GEST GLUC SCREEN, 1-HR, 50 GM, NON-FASTING GEST GLUC SCREEN, 1-HR, 50 GM, NON-FASTING Lab Routine 24 weeks gestation of Expected: 06/29/2022, Expires: 08/29/2022 [facility] Work Phone: Comment on above: Expected: 06/29/2022, Expires: 2 Start: 06-29-2022 End: 08-29-2022 SYPHILIS TOTAL W/REFLEX SYPHILIS TOTAL W/REFLEX Lab Routine 24 weeks gestation of Expected: 06/29/2022, Expires: 08/29/2022 [facility] Work Phone: Comment on above: Expected: 06/29/2022, Expires: 2 Start: 04-30-2022 COVID-19 VACCINE (3 - Booster for Pfizer series) COVID-19 VACCINE (3 - Booster for Pfizer series) [facility] Start: 04-20-2022 End: 06-15-2022 SEQUENTIAL SCRN SCND TRIMESTER SEQUENTIAL SCRN SCND TRIMESTER Lab Routine Encounter for screening for nuchal translucency Expected: 04/20/2022 (Approximate), Expires: 06/15/2022 [facility] Work Phone: Comment on above: Expected: 04/20/2022 (Approximate), Expi res: 06/15/2022 Start: 04-06-2022 End: 06-06-2022 SEQUENTIAL SCRN FRST TRIMESTER [facility] Work Phone: Comment on above: Expected: 04/06/2022, Expires: 2 Start: 03-15-2022 End: 05-15-2022 CBC panel - Blood by Automated count CBC Lab Routine Encounter for care in first trimester of first Expected: 03/15/2022, Expires: 05/15/2022 [facility] Work Phone: Comment on above: Expected: 03/15/2022, Expires: 2 Start: 03-15-2022 End: 05-15-2022 Hemoglobin A1c/Hemoglobin.total in Blood HGB A1C Lab Routine Encounter for care in first trimester of first Expected: 03/15/2022, Expires: 05/15/2022 [facility] Work Phone: Comment on above: Expected: 03/15/2022, Expires: 2 Start: 03-15-2022 End: 05-15-2022 Hepatitis B virus surface Ab [Presence] in Serum by Immunoassay HEP B SURF AG SCRN Lab Routine Encounter for care in first trimester of first Expected: 03/15/2022, Expires: 05/15/2022 [facility] Work Phone: Comment on above: Expected: 03/15/2022, Expires: 2 Start: 03-15-2022 End: 05-15-2022 Hepatitis C virus Ab [Presence] in Serum HEP C AB IA W/CONF SCRN Lab Routine Encounter for care in first trimester of first Expected: 03/15/2022, Expires: 05/15/2022 [facility] Work Phone: Comment on above: Expected: 03/15/2022, Expires: 2 Start: 03-15-2022 End: 05-15-2022 HIV 1+2 Ab [Presence] in Serum or Plasma by Immunoassay HIV 1 2 COMBO(AG/AB),WITH REFLEX TO DIFFERENTIATION Lab Routine Encounter for care in first trimester of first Expected: 03/15/2022, Expires: 05/15/2022 [facility] Work Phone: Comment on above: Expected: 03/15/2022, Expires: 2 Start: 03-15-2022 End: 05-15-2022 RUBELLA IGG AB RUBELLA IGG AB Lab Routine Encounter for care in first trimester of first Expected: 03/15/2022, Expires: 05/15/2022 [facility] Work Phone: Comment on above: Expected: 03/15/2022, Expires: 2 Start: 03-15-2022 End: 05-15-2022 SYPHILIS TOTAL W/REFLEX SYPHILIS TOTAL W/REFLEX Lab Routine Encounter for care in first trimester of first Expected: 03/15/2022, Expires: 05/15/2022 [facility] Work Phone: Comment on above: Expected: 03/15/2022, Expires: 2 Start: 03-15-2022 End: 05-15-2022 TYPE + SCREEN TYPE + SCREEN Blood Bank Routine Encounter for care in first trimester of first Expected: 03/15/2022, Expires: 05/15/2022 [facility] Work Phone: Comment on above: Expected: 03/15/2022, Expires: 2 Start: 02-01-2022 Patient referral [facility] Work Phone: Start: 01-29-2022 Therapeutic px 1/> areas each 15 min exercises THERAPEUTIC EXERCISES [facility] Work Phone: Start: 01-26-2022 COVID-19 VACCINE (3 - Booster for Pfizer series) COVID-19 VACCINE (3 - Booster for Pfizer series) [facility] Start: 01-26-2022 COVID-19 VACCINE (3 - Pfizer series) COVID-19 VACCINE (3 - Pfizer series) [facility] Start: 10-31-2021 DEPRESSION ASSESSMENT DEPRESSION ASSESSMENT [facility] Start: 2020 PAP TESTING PAP TESTING [facility] Start: 2018 Urine microalbumin profile DTAP,TDAP,TD (1 - Tdap) [facility] Start: 2017 Anxiety Screening Anxiety Screening [facility] Start: 2017 CHLAMYDIA SCREENING (18-24) CHLAMYDIA SCREENING (18-24) [facility] Start: 2017 Depression Screening Depression Screening [facility] Start: 2017 GC (GONORRHEA) SCREENING (18-24) GC (GONORRHEA) SCREENING (18-24) [facility] Start: 2017 HEPATITIS C SCREENING HEPATITIS C SCREENING [facility] Start: 2017 HIV SCREENING HIV SCREENING [facility] Start: 2015 Meningococcal B Vaccine: Consider Based On Risk (1 of 2 - Patient Seeks Protection) Meningococcal B Vaccine: Consider Based On Risk (1 of 2 - Patient Seeks Protection) [facility] Start: 2015 MENINGOCOCCAL B: Consider based on risk (1 of 2 - Patient Seeks Protection) MENINGOCOCCAL B: Consider based on risk (1 of 2 - Patient Seeks Protection) [facility] Start: 02-24-2015 HPV Vaccine (2 - 3-dose series) HPV Vaccine (2 - 3-dose series) [facility] Start: 2013 PEDS TO ADULT TRANSITION ANNUAL ASSESSMENT PEDS TO ADULT TRANSITION ANNUAL ASSESSMENT [facility] Start: 2011 Adult depression screening assessment DEPRESSION SCREENING [facility] Start: 2011 PEDS TO ADULT TRANSITION INITIAL DISCUSSION PEDS TO ADULT TRANSITION INITIAL DISCUSSION [facility] Start: 2010 HPV VACCINE (1 - 2-dose series) HPV VACCINE (1 - 2-dose series) [facility] Start: 2009 MENINGOCOCCAL B: Consider based on risk (1 of 2 - Risk Bexsero 2-dose series) MENINGOCOCCAL B: Consider based on risk (1 of 2 - Risk Bexsero 2-dose series) [facility] Start: 2008 HPV VACCINE (1 - 2-dose series) HPV VACCINE (1 - 2-dose series) [facility] Start: 1999 HEPATITIS B (1 of 3 - 3-dose series) HEPATITIS B (1 of 3 - 3-dose series) [facility] Start: 1999 Hepatitis B Vaccine (1 of 3 - 3-dose series) Hepatitis B Vaccine (1 of 3 - 3-dose series) [facility] Bacteria identified in Urine by Culture URINE CULTURE Microbiology Routine Encounter for care in first trimester of first 03/15/2022 12:00 PM EDT [facility] Work Phone: BACTERIAL VAGINOSIS NAAT BACTERI AL VAGINOSIS NAAT Lab Routine Irregular bleeding 04/25/2024 9:49 AM EDT [facility] NINI/TRICHOMONAS NAAT NINI /TRICHOMONAS NAAT Lab Routine Irregular bleeding 04/25/2024 9:49 AM EDT [facility] CBC W Auto Different ial panel - Blood [facility] Chlamydia trachomatis+Neisseria gonorrhoeae DNA [Presence] in Unspecified specimen by GIRISH with probe detection GC/CHLAMYDIA DNA DET Lab Routine Encounter for care in first trimester of first 03/15/2022 12:00 PM EDT [facility] Work Phone: Chlamydia trachomatis+Neisseria gonorrhoeae DNA [Presence] in Unspecified specimen by GIRISH with probe detection GONORRHEA/CHLAMYDIA NAAT Lab Routine Irregular bleeding 04/25/2024 9:48 AM EDT [facility] Comprehensive metabo lic 2000 panel - Serum or Plasma [facility] End: 06-01-2023 Echocardiography ECHO Cardiology Routine History of tachycardia History of COVID-19 Postinflammatory pulmonary fibrosis (HCC) 1 Occurrences starting 06/01/2022 until 06/01/2023 [facility] Work Phone: Comment on above: 1 Occurrences starting 06/01/2022 until 06/01/2023 End: 08-24-2023 Echocardiography ECHO Cardiology Routine COVID-19 long hauler manifesting chronic dyspnea 1 Occurrences starting 08/24/2022 until 08/24/2023 [facility] Work Phone: Comment on above: 1 Occurrences starting 08/24/2022 until 08/24/2023 Exercise tolerance test [facility] End: 09-24-2022 nonstress test NON-STRESS TEST Procedures Routine COVID-19 long hauler manifesting chronic dyspnea Once per week for 8 Occurrences starting 08/24/2022 until 09/24/2022 [facility] Work Phone: Comment on above: Once per week for 8 Occurrences starting 08/24/2022 until 09/24/2022 In-vitro immunologic test [facility] Lipid 1996 panel - S sanjeev or Plasma [facility] Mycobacterium tuberculosis tuberculin stimulated gamma interferon [Presence] in Blood [facility] NEXPLANON INSERTION NEXPLANON IN SERTION Procedures Routine Nexplanon insertion Ordered: 11/19/2022 [facility] Work Phone: Comment on above: Ordered: 11/19/2022 NUCHAL TRANSLUCENCY WHI NUCHAL T RANSLUCENCY WHI Anc Imaging Routine Encounter for care in first trimester of first 9 weeks gestation of [facility]: [facility] Work Phone: Comment on above: Ordered: 03/15/2022 OBSTETRIC ULTRASOUND WHI OBSTETR IC ULTRASOUND WHI Anc Imaging Routine Encounter for care in first trimester of first 9 weeks gestation of 1 Occurrences starting 03/15/2022 [facility] Work Phone: Comment on above: 1 Occurrences starting 03/15/2022 OBSTETRIC ULTRASOUND WHI OBSTETR IC ULTRASOUND WHI Anc Imaging Routine 16 weeks gestation of Supervision of high risk in second trimester Obesity in Ordered: 05/04/2022 [facility] Work Phone: Comment on above: Ordered: 05/04/2022 OBSTETRIC ULTRASOUND WHI OBSTETR IC ULTRASOUND WHI Anc Imaging Routine 24 weeks gestation of High-risk in second trimester Ordered: 06/29/2022 [facility] Work Phone: Comment on above: Ordered: 06/29/2022 OBSTETRIC ULTRASOUND WHI OBSTETR IC ULTRASOUND WHI Anc Imaging Routine Obesity in 28 weeks gestation of [facility]: Comment on above: Ordered: 07/27/2022 PAP FLUID CERVICAL SCREENING PAP FLUID CERVICAL SCREENING Lab Routine Encounter for care in first trimester of first 03/15/2022 12:00 PM EDT [facility] Work Phone: Patient Education [facility] Work Phone: Patient referral [facility] Work Phone: Polysomnography [facility] ROUTINE, GR OUP B STREP PCR ROUTINE, GROUP B STREP PCR Microbiology Routine 36 weeks gestation of COVID-19 chasity lyles manifesting chronic dyspnea Obesity in 09/21/2022 11:03 AM EST [facility] Work Phone: SARS-CoV-2 (COVID-19 ) RNA [Presence] in Respiratory specimen by GIRISH with probe detection SELF CHECK COVID Microbiology Routine Supervision of high risk in third trimester Ordered: 09/29/2022 [facility] Work Phone: Comment on above: Ordered: 09/29/2022 [facility] Work Phone: [facility] Vitamin D, 25-hydrox y measurement [facility] Immunizations Immunization Date Immunization Notes Care Provider [facility] 07-27-2022 tetanus toxoid, reduced diphtheria toxoid, and acellular pertussis vaccine, adsorbed Indira Arevalo MD Work Phone: [facility] 11-10-2021 Covid (Pfizer) Dr. Randa bell Work Phone: [facility] 09-16-2004 influenza virus vaccine, unspecified formulation Vicente Rivera APRN.CNP Work Phone: [facility] Payers Date Payer Category Payer Self-pay [id number] 2024 Private Health Insurance HUMANA HU[place]NA [place] [id number] 2024-Present [address] [address] [place] [address] Medicaid [id number] 2024 Medicaid [id number] 2022 Unknown [id number] 2022 Unknown NEERAJ RAY SS PPO [id number] 2022-Present [phone] [address] [place] [address] PPO [id number] 2022 Unknown [id number] 2022 Medicaid [facility] [employer] [facility] [employer] [id number] 2022-Present [phone] [address] [place], [place] [address] Medicaid [id number] 2021 Unknown [id number] 2021 Medicaid [employer] [facility] [employer] [employer] [id number] 2021-Present [phone] [address] [place] [address] Medicaid [id number] 2021 Medicaid [id number] 2021 Unknown [id number] 2021 Medicaid [id number] 1999 Unknown [id number] 1999 Unknown [id number] 594 1999 Unknown [id number]. 594 1999 Unknown [id number] 594 1999 Unknown [id number]. 594 1999 Unknown [id number] 594 Unknown [id number] Unknown NEERAJ [id number] Unknown [id number] 462 Unknown [id number] 462 Unknown [id number] 462 Unknown [id number] 462 Unknown [id number] 462 Unknown [id number] 462 Social History Date Type Detail Facility [facility] Work Phone: Start: 02-02-2022 End: 01-29-2024 Tobacco smoking status SCIS Unknown if ever smoked [facility] Start: 1999 Sex Assigned At Female [facility] Start: 07-14-2021 End: 01-29-2024 Tobacco smoking status NHIS Never smoked tobacco [facility] Start: 07-14-2021 End: 08-06-2022 Tobacco use and exposure Smokeless tobacco non-user [facility] Start: 03-11-2022 End: 11-05-2024 Alcohol intake Ex-drinker (finding) [facility] Start: 03-11-2022 Education 8 [facility] Start: 01-25-2022 [facility] Start: 03-01-2022 End: 10-01-2022 Exposure to SARS-CoV-2 (event) Not sure [facility] Work Phone: Start: 07-30-2022 End: 08-09-2022 Exposure to SARS-CoV-2 (event) Yes [facility] Start: 11-18-2022 End: 03-24-2023 History of Social function [facility] Start: 11-18-2022 End: 03-24-2023 Tobacco use panel [facility] The thought of anju mayer myself has occurred to me Never [facility] National Score (1-100), lower number is lower risk 68 [facility] Start: 01-15-2022 Gender identity Identifies as female gender (finding) [facility] Start: 01-15-2022 Sexual orientation Heterosexual (belkys rodriguez) [facility] NEGATED: Highlighted row [facility] Goals Date Patient Goal Desired Activity /State Functional Status Date Assessment Result Facility 10-03-2022 Are you deaf, or do you have serious difficulty hearing No 10/03/2022 5:38 PM Radha Mane RN No [facility] 10-03-2022 Are you blind, or do you have serious difficulty seeing, even when wearing glasses No 10/03/2022 5:38 PM Radha Mane RN No [facility] 10-03-2022 Do you have serious difficulty walking or climbing stairs No 10/03/2022 5:38 PM Radha Mane, MAKI [facility] 10-03-2022 Do you have difficul ty dressing or bathing No 10/03/2022 5:38 PM Radha Mane, MAKI No [facility] 10-03-2022 Because of a physica l, mental, or emotional condition, do you have difficulty doing errands alone such as visiting a physician's office or shopping No 10/03/2022 5:38 PM Radha Mane RN No [facility] 11-19-2021 Functional status Activity Abili ty With Assist of 1 [facility] Work Phone: 11-18-2021 Functional status Assistive Praveena tommy Straight Cane [facility] Work Phone: 11-17-2021 Functional status Patient Activi ty Dangle Feet [facility] Work Phone: 11-16-2021 Functional status Tolerates Activity Well [facility] Work Phone: Mental Status Date Assessment Result Facility 10-03-2022 Because of a physica l, mental, or emotional condition, do you have serious difficulty concentrating, remembering, or making decisions No 10/03/2022 5:38 PM Radha Mane RN No [facility] 11-19-2021 Cognitive function Voice/Name [facility] Work Phone: Clinical Notes 03-11-2022 to 05-16-2025 Note Date & Type Note Facility 05-16-2025 Evaluation note Diagnosis Onset Date Resolution Preventative health care acute May 16, 2025 1:49pm Anxiety with depression chronic J anderson 2024 1:49pm Asthma chronic May 16 1:49pm Morbid obesity chronic May 16, 2025 1:49pm Pulmonary fibrosis, postinflammatory chronic May 16, 2025 1:49pm [facility] Work Phone: 1(209) 601-429305-12-2025 NoteHNO ID: [id number] Author: LIZET CAICEDO APRN.RADHA Service: ? Author Type: Nurse Practitioner Type: Progress Notes Filed: 03/11/2025 16:37 Note Text: Patient presents for work note. Completed and printed.[facility]05-12-2025 History of Present illness Narrative* Lizet Caicedo APRN.CNP - 03/11/2025 4:37 PM EDT Patient presents for work note. Completed and printed. * Zacarias Briggs PA - 03/11/2025 11:29 AM EDT [facility] Subjective Aleyda Mejía is a 25 year old female. Patient presents with: Head Congestion: chest congestion, cough and headache x 10 days HPI 25-year-old female presents for cough, chest congestion, nasal congestion, headache x 10 days. 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 Patient has productive cough, nasal congestion, sinus pressure, sinus pain. She denies any chest pain or shortness of breath. She denies any fevers. Has taken ibuprofen and Tylenol for symptoms. No other complaint. PAST MEDICAL HISTORY Diagnosis Date Anemia Asthma C. difficile diarrhea COVID-19 08/03/2021 on ventilator 40 days Depression DVT (deep venous thrombosis) (HCC) right knee-during Covid hospitalization Eczema History of DVT (deep vein thrombosis) 03/11/2022 03/15/22 No indication for lovenox in . Will consider lovenox for 6 weeks . SW 03/11/2022 She states that she developed a blood clot under her right knee due to COVID and was treated at the [facility]. States she has been off Eliquis since December. TKRN Scarring of lung Covid related Tachycardia, unspecified post covid PAST SURGICAL HISTORY Procedure Laterality Date SECTION HX 10/01/2022 CHEST TUBES-SPECIFY covid treatment PAST SURGICAL HISTORY OF wisdom teeth TRACHEOSTOMY PLANNED SEPARATE PROCEDURE during Covid ventilator ALLERGIES Alcohol MEDICATIONS amoxicillin-clavulanate potassium (AUGMENTIN) 875-125 mg per tablet Take 1 tablet by mouth two times a day for 7 days. benzonatate (TESSALON PERLE) 100 mg capsule Take 1 capsule by mouth three times a day as needed. SYMBICORT 160-4.5 mcg/actuation inhaler Inhale 2 Puffs as instructed two times a day. Uses as needed (Patient not taking: Reported on 03/11/2025) etonogestrel (NEXPLANON) subdermal implant 68 mg 1 Each by SUBDERMAL route as directed. ALBUTEROL INHALATION Inhale as instructed. FAMILY HISTORY Problem Relation Age of Onset Diabetes Mother Hypertension Father No Known Problems Sister No Known Problems Brother No Known Problems Brother Leukemia Maternal Grandmother Heart Maternal Grandmother Suicide / Suicidal Behaviors Maternal Grandfather No Known Problems Paternal Grandmother No Known Problems Paternal Grandfather Social History Tobacco Use Smoking status: Never Smokeless tobacco: Never Vaping Use Vaping status: Never Used Substance Use Topics Alcohol use: Not Currently Drug use: Not Currently Types: Marijuana Review of Systems Constitutional: Negative for chills and fever. HENT: Positive for congestion, sinus pressure and sinus pain. Negative for ear pain and sore throat. Respiratory: Positive for cough. Negative for shortness of breath. Cardiovascular: Negative for chest pain. Gastrointestinal: Negative for diarrhea and vomiting. Neurological: Positive for headaches. Objective BP 122/80 Pulse 96 Temp 36.3 C (97.4 F) Resp 16 Wt (!) 138.4 kg (305 lb 1.9 oz) LMP 05/08/2024 (Approximate) SpO2 97% BMI 42.72 kg/m Physical Exam Vitals and nursing note reviewed. Constitutional: General: She is not in acute distress. Appearance: Normal appearance. She is not toxic-appearing. HENT: Right Ear: Tympanic membrane and ear canal normal. Left Ear: Tympanic membrane and ear canal normal. Nose: Mucosal edema and congestion present. Right Sinus: Frontal sinus tenderness present. No maxillary sinus tenderness. Left Sinus: Frontal sinus tenderness present. No maxillary sinus tenderness. Mouth/Throat: Mouth: Mucous membranes are moist. Cardiovascular: Rate and Rhythm: Normal rate and regular rhythm. Pulmonary: Effort: Pulmonary effort is normal. Breath sounds: Normal breath sounds. Skin: General: Skin is warm and dry. Neurological: Mental Status: She is alert. {ASSESSMENT/PLAN: 1. Bacterial sinusitis - ICD9: 473.9, 041.9, ICD10: J32.9, B96.89 - Will begin treatment with Augmentin 875 mg PO BID for 7 days -Rx Tessalon Perle - The patient should also be given OTC decongestants prn for the first 5-7 days of treatment. - Supportive care with plenty of fluids, rest, and analgesia prn. Diagnosis and treatment plan were discussed and questions were answered to the patient's satisfaction. Pt acknowledged understanding of concepts and follow up plan. Specific signs and symptoms that would indicate the need for higher level of care were discussed in detail warranting prompt ER evaluation. BREE Vickers History and Record Review External record(s) reviewed: prior outpatient record. Differential Diagnoses - Bacterial sinusitis is more likely for the following reason(s): suggested by H&P - Pneumonia is less likely for the following reason(s): H&P not suggestive Disposition The patient was discharged. OTC Medications were advised: Flonase, decongest [facility] NoteHNO ID: [id number] Author: ZACARIAS BRIGGS PA Service: ? Author Type: Physician Trolley Collector Type: Progress Notes Filed: 03/11/2025 11:32 Note Text: [facility] Subjective Aleyda Mejía is a 25 year old female. Patient presents with: Head Congestion: chest congestion, cough and headache x 10 days HPI 25-year-old female presents for cough, chest congestion, nasal congestion, headache x 10 days. 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 Patient has productive cough, nasal congestion, sinus pressure, sinus pain. She denies any chest pain or shortness of breath. She denies any fevers. Has taken ibuprofen and Tylenol for symptoms. No other complaint. PAST MEDICAL HISTORY Diagnosis Date Anemia Asthma C. difficile diarrhea COVID-19 08/03/2021 on ventilator 40 days Depression DVT (deep venous thrombosis) (HCC) right knee-during Covid hospitalization Eczema History of DVT (deep vein thrombosis) 03/11/2022 03/15/22 No indication for lovenox in . Will consider lovenox for 6 weeks . SW 03/11/2022 She states that she developed a blood clot under her right knee due to COVID and was treated at the [facility]. States she has been off Eliquis since December. TKRN Scarring of lung Covid related Tachycardia, unspecified post covid PAST SURGICAL HISTORY Procedure Laterality Date SECTION HX 10/01/2022 CHEST TUBES-SPECIFY covid treatment PAST SURGICAL HISTORY OF wisdom teeth TRACHEOSTOMY PLANNED SEPARATE PROCEDURE during Covid ventilator ALLERGIES Alcohol MEDICATIONS amoxicillin-clavulanate potassium (AUGMENTIN) 875-125 mg per tablet Take 1 tablet by mouth two times a day for 7 days. benzonatate (TESSALON PERLE) 100 mg capsule Take 1 capsule by mouth three times a day as needed. SYMBICORT 160-4.5 mcg/actuation inhaler Inhale 2 Puffs as instructed two times a day. Uses as needed (Patient not taking: Reported on 03/11/2025) etonogestrel (NEXPLANON) subdermal implant 68 mg 1 Each by SUBDERMAL route as directed. ALBUTEROL INHALATION Inhale as instructed. FAMILY HISTORY Problem Relation Age of Onset Diabetes Mother Hypertension Father No Known Problems Sister No Known Problems Brother No Known Problems Brother Leukemia Maternal Grandmother Heart Maternal Grandmother Suicide / Suicidal Behaviors Maternal Grandfather No Known Problems Paternal Grandmother No Known Problems Paternal Grandfather Social History Tobacco Use Smoking status: Never Smokeless tobacco: Never Vaping Use Vaping status: Never Used Substance Use Topics Alcohol use: Not Currently Drug use: Not Currently Types: Marijuana Review of Systems Constitutional: Negative for chills and fever. HENT: Positive for congestion, sinus pressure and sinus pain. Negative for ear pain and sore throat. Respiratory: Positive for cough. Negative for shortness of breath. Cardiovascular: Negative for chest pain. Gastrointestinal: Negative for diarrhea and vomiting. Neurological: Positive for headaches. Objective BP 122/80 Pulse 96 Temp 36.3 ?C (97.4 ?F) Resp 16 Wt (!) 138.4 kg (305 lb 1.9 oz) LMP 05/08/2024 (Approximate) SpO2 97% BMI 42.72 kg/m? Physical Exam Vitals and nursing note reviewed. Constitutional: General: She is not in acute distress. Appearance: Normal appearance. She is not toxic-appearing. HENT: Right Ear: Tympanic membrane and ear canal normal. Left Ear: Tympanic membrane and ear canal normal. Nose: Mucosal edema and congestion present. Right Sinus: Frontal sinus tenderness present. No maxillary sinus tenderness. Left Sinus: Frontal sinus tenderness present. No maxillary sinus tenderness. Mouth/Throat: Mouth: Mucous membranes are moist. Cardiovascular: Rate and Rhythm: Normal rate and regular rhythm. Pulmonary: Effort: Pulmonary effort is normal. Breath sounds: Normal breath sounds. Skin: General: Skin is warm and dry. Neurological: Mental Status: She is alert. {ASSESSMENT/PLAN: 1. Bacterial sinusitis - ICD9: 473.9, 041.9, ICD10: J32.9, B96.89 - Will begin treatment with Augmentin 875 mg PO BID for 7 days -Rx Tessalon Perle - The patient should also be given OTC decongestants prn for the first 5-7 days of treatment. - Supportive care with plenty of fluids, rest, and analgesia prn. Diagnosis and treatment plan were discussed and questions were answered to the patient's satisfaction. Pt acknowledged understanding of concepts and follow up plan. Specific signs and symptoms that would indicate the need for higher level of care were discussed in detail warranting prompt ER evaluation. BREE Vickers History and Record Review External record(s) reviewed: prior outpatient record. Differential Diagnoses - Bacterial sinusitis is more likely for the following reason(s): suggested by HANDP - Pneumonia is le (more content not included)...[facility] 11-05-2024 History of Present illness Narrative* Vicente Rivera APRN.SUGAR REPROCESS OPERATOR HEAD - 11/05/2024 2:42 PM EST Subjective HPI Nontoxic-appearing female presents urgent care chief complaint nausea vomiting diarrhea. States hissymptoms have improved. They were most prominent yesterday. Presents today with slight nasal drainage and cough. States symptoms are improving. Requesting letter for work due to missed work today today. OTC medications none. Denies any chest pain shortness of breath or pleuritic pain. No blood in vomit or stool. Denies chance of . Is not breast-feeding. Past medical history prescription medications allergies reviewed. .Patient presents with: Cough: Cough, congestion, ST, diarrhea and vomiting x 1 day PAST MEDICAL HISTORY Diagnosis Date Anemia Asthma C. difficile diarrhea COVID-19 08/03/2021 on ventilator 40 days Depression DVT (deep venous thrombosis) (HCC) right knee-during Covid hospitalization Eczema History of DVT (deep vein thrombosis) 03/11/2022 03/15/22 No indication for lovenox in . Will consider lovenox for 6 weeks . SW 03/11/2022 She states that she developed a blood clot under her right knee due to COVID and was treated at the [facility]. States she has been off Eliquis since December. TKRN Scarring of lung Covid related Tachycardia, unspecified post covid PAST SURGICAL HISTORY Procedure Laterality Date SECTION HX 10/01/2022 CHEST TUBES-SPECIFY covid treatment PAST SURGICAL HISTORY OF wisdom teeth TRACHEOSTOMY PLANNED SEPARATE PROCEDURE during Covid ventilator ALLERGIES Alcohol MEDICATIONS SYMBICORT 160-4.5 mcg/actuation inhaler Inhale 2 Puffs as instructed two times a day. Uses as needed etonogestrel (NEXPLANON) subdermal implant 68 mg 1 Each by SUBDERMAL route as directed. ALBUTEROL INHALATION Inhale as instructed. FAMILY HISTORY Problem Relation Age of Onset Diabetes Mother Hypertension Father No Known Problems Sister No Known Problems Brother No Known Problems Brother Leukemia Maternal Grandmother Heart Maternal Grandmother Suicide / Suicidal Behaviors Maternal Grandfather No Known Problems Paternal Grandmother No Known Problems Paternal Grandfather Social History Tobacco Use Smoking status: Never Smokeless tobacco: Never Vaping Use Vaping status: Never Used Substance Use Topics Alcohol use: Not Currently Drug use: Not Currently Types: Marijuana BP 110/78 Pulse 105 Temp 36.4 C (97.6 F) (Tympanic) Resp 18 Wt 135.3 kg (298 lb 4.5 oz) LMP 05/08/2024 (Approximate) SpO2 96% BMI 41.76 kg/m Review of Systems Constitutional: Negative for chills, fever and malaise/fatigue. HENT: Positive for congestion. Negative for ear discharge, ear pain, sinus pain and sore throat. Eyes: Negative for blurred vision, pain, discharge and redness. Respiratory: Positive for cough. Negative for hemoptysis, sputum production, shortness of breath, wheezing and stridor. Cardiovascular: Negative for chest pain. Gastrointestinal: Positive for diarrhea, nausea and vomiting. Negative for abdominal pain. Musculoskeletal: Negative for myalgias. Skin: Negative for itching and rash. Neurological: Negative for dizziness and headaches. Objective Physical Exam Constitutional: General: She is not in acute distress. Appearance: She is not diaphoretic. HENT: Head: Normocephalic. Jaw: No trismus, tenderness, swelling or pain on movement. Nose: Congestion present. Mouth/Throat: Mouth: Mucous membranes are moist. Pharynx: Oropharynx is clear. Uvula midline. No pharyngeal swelling, oropharyngeal exudate, posterior oropharyngeal erythema or uvula swelling. Eyes: Conjunctiva/sclera: Conjunctivae normal. Pupils: Pupils are equal, round, and reactive to light. Cardiovascular: Rate and Rhythm: Normal rate and regular rhythm. Heart sounds: Normal heart sounds. Pulmonary: Effort: Pulmonary effort is normal. No tachypnea, accessory muscle usage or respiratory distress. Breath sounds: Normal breath sounds. No stridor. No wheezing, rhonchi or rales. Abdominal: General: There is no distension. Palpations: Abdomen is soft. Tenderness: There is no abdominal tenderness. There is no guarding or rebound. Musculoskeletal: Cervical back: Normal range of motion and neck supple. No edema, erythema, rigidity or tenderness. No pain with movement. Normal range of motion. Lymphadenopathy: Cervical: No cervical adenopathy. Skin: General: Skin is warm and dry. Neurological: Mental Status: She is alert and oriented to person, place, and time. ASSESSMENT/PLAN: 1. Viral illness - ICD9: 079.99, ICD10: B34.9 - Discussed viral etiology and rationale for treatment. - Symptomatic treatment with prn analgesia - Supportive care with fluids and rest Symptoms progressively improving. Treat as viral etiology. Patient was educated on supportive therapies. Patient will follow up with primary care provider as needed. Patient was instructed to immediately proceed to emergency room for any new, worsening, or symptoms lasting longer than anticipated. The patient's clinical presentation is otherwise unremarkable at this time. Based on exam and clinical finding, the patient is stable for discharge. Plan of care was discussed with patient. Patient verbalizes understanding and agrees to plan of care. This note was generated using [employer] software. Itmay contain errors in wording, punctuation, or spelling. Vicente Rivera APRN.SUGAR REPROCESS OPERATOR HEAD documented in this encounterBethesda [facility] Hospital01-06-2025 NoteHNO ID: [id number] Author: VICENTE RIVERA APRN.SUGAR REPROCESS OPERATOR HEAD Service: ? Author Type: Nurse Practitioner Type: Progress Notes Filed: 11/05/2024 14:48 Note Text: Subjective HPI Nontoxic-appearing female presents urgent care chief complaint nausea vomiting diarrhea. States his symptoms have improved. They were most prominent yesterday. Presents today with slight nasal drainage and cough. States symptoms are improving. Requesting letter for work due to missed work today today. OTC medications none. Denies any chest pain shortness of breath or pleuritic pain. No blood in vomit or stool. Denies chance of . Is not breast-feeding. Past medical history prescription medications allergies reviewed. .Patient presents with: Cough: Cough, congestion, ST, diarrhea and vomiting x 1 day PAST MEDICAL HISTORY Diagnosis Date Anemia Asthma C. difficile diarrhea COVID-19 08/03/2021 on ventilator 40 days Depression DVT (deep venous thrombosis) (HCC) right knee-during Covid hospitalization Eczema History of DVT (deep vein thrombosis) 03/11/2022 03/15/22 No indication for lovenox in . Will consider lovenox for 6 weeks . SW 03/11/2022 She states that she developed a blood clot under her right knee due to COVID and was treated at the [facility]. States she has been off Eliquis since December. TKRN Scarring of lung Covid related Tachycardia, unspecified post covid PAST SURGICAL HISTORY Procedure Laterality Date SECTION HX 10/01/2022 CHEST TUBES-SPECIFY covid treatment PAST SURGICAL HISTORY OF wisdom teeth TRACHEOSTOMY PLANNED SEPARATE PROCEDURE during Covid ventilator ALLERGIES Alcohol MEDICATIONS SYMBICORT 160-4.5 mcg/actuation inhaler Inhale 2 Puffs as instructed two times a day. Uses as needed etonogestrel (NEXPLANON) subdermal implant 68 mg 1 Each by SUBDERMAL route as directed. ALBUTEROL INHALATION Inhale as instructed. FAMILY HISTORY Problem Relation Age of Onset Diabetes Mother Hypertension Father No Known Problems Sister No Known Problems Brother No Known Problems Brother Leukemia Maternal Grandmother Heart Maternal Grandmother Suicide / Suicidal Behaviors Maternal Grandfather No Known Problems Paternal Grandmother No Known Problems Paternal Grandfather Social History Tobacco Use Smoking status: Never Smokeless tobacco: Never Vaping Use Vaping status: Never Used Substance Use Topics Alcohol use: Not Currently Drug use: Not Currently Types: Marijuana BP 110/78 Pulse 105 Temp 36.4 ?C (97.6 ?F) (Tympanic) Resp 18 Wt 135.3 kg (298 lb 4.5 oz) LMP 05/08/2024 (Approximate) SpO2 96% BMI 41.76 kg/m? Review of Systems Constitutional: Negative for chills, fever and malaise/fatigue. HENT: Positive for congestion. Negative for ear discharge, ear pain, sinus pain and sore throat. Eyes: Negative for blurred vision, pain, discharge and redness. Respiratory: Positive for cough. Negative for hemoptysis, sputum production, shortness of breath, wheezing and stridor. Cardiovascular: Negative for chest pain. Gastrointestinal: Positive for diarrhea, nausea and vomiting. Negative for abdominal pain. Musculoskeletal: Negative for myalgias. Skin: Negative for itching and rash. Neurological: Negative for dizziness and headaches. Objective Physical Exam Constitutional: General: She is not in acute distress. Appearance: She is not diaphoretic. HENT: Head: Normocephalic. Jaw: No trismus, tenderness, swelling or pain on movement. Nose: Congestion present. Mouth/Throat: Mouth: Mucous membranes are moist. Pharynx: Oropharynx is clear. Uvula midline. No pharyngeal swelling, oropharyngeal exudate, posterior oropharyngeal erythema or uvula swelling. Eyes: Conjunctiva/sclera: Conjunctivae normal. Pupils: Pupils are equal, round, and reactive to light. Cardiovascular: Rate and Rhythm: Normal rate and regular rhythm. Heart sounds: Normal heart sounds. Pulmonary: Effort: Pulmonary effort is normal. No tachypnea, accessory muscle usage or respiratory distress. Breath sounds: Normal breath sounds. No stridor. No wheezing, rhonchi or rales. Abdominal: General: There is no distension. Palpations: Abdomen is soft. Tenderness: There is no abdominal tenderness. There is no guarding or rebound. Musculoskeletal: Cervical back: Normal range of motion and neck supple. No edema, erythema, rigidity or tenderness. No pain with movement. Normal range of motion. Lymphadenopathy: Cervical: No cervical adenopathy. Skin: General: Skin is warm and dry. Neurological: Mental Status: She is alert and oriented to person, place, and time. ASSESSMENT/PLAN: 1. Viral illness - ICD9: 079.99, ICD10: B34.9 - Discussed viral etiology and rationale for treatment. - Symptomatic treatment with prn analgesia - Supportive care with fluids and rest Symptoms progressively improving. T (more content not included)...[facility]08-09-2024 NoteHNO ID: [id number] Author: SERA LAMAS MD Service: ? Author Type: Physician Type: Progress Notes Filed: 06/08/2024 12:04 Note Text: The patient presents for requested ultrasound. Full report available in the Imaging tab in Glance. Sera Lamas [facility]08-09-2024 History of Present illness Narrative* Sera Lamas MD - 06/08/2024 11:58 AM EDT The patient presents for requested ultrasound. Full report available in the Imaging tab in Glance. Sera Lamas MD documented in this encounterBethesda North Hospital08-05-2024 Telephone encounter Note * Telephone Encounter - Eladio García RN - 06/04/2024 3:46 PM EDT Patient is scheduled now for 06/07 [facility] pelvic u/s. Eladio García RN [facility]08-05-2024 Miscellaneous Notes* Telephone Encounter - Eladio García RN - 06/04/2024 3:46 PM EDT Patient is scheduled now for 06/07 [facility] pelvic u/s. Eladio García RN * Telephone Encounter - Eladio García RN - 05/24/2024 10:29 AM EDT Left message for patient to call office. Eladio García RN * Telephone Encounter - Edilma Sandhu APRN.CNP - 05/24/2024 9:55 AM EDT Yes, she can have it at another facility. Is the financial secretary assisting her? Edilma Sandhu APRN.RADHA * Telephone Encounter - Eladio García RN - 05/24/2024 9:53 AM EDT Could she get it at a different facility that is in network if the pelvic u/s order is faxed there? Eladio García RN * Telephone Encounter - Edilma Sandhu APRN.CNP - 05/24/2024 9:34 AM EDT Received an email about this and looking into it. Is patient in contact with financial secretary? Edilma Sandhu APRN.RADHA * Telephone Encounter - Alejandra Beck - 05/24/2024 8:55 AM EDT Patient called and cancelled ordered Pelvic US due to O[employer] insurance and CCN denial. Please contact patient to advise on alternative plan of care. * Telephone Encounter - Tori Rob - 05/23/2024 9:27 AM EDT 1st attempt lvm for pt to schedule pelvic ultrasound * Telephone Encounter - Brandee Fall RN - 05/10/2024 3:11 PM EDT Order has been reinstated and assist Pt with scheduling. Thank you! Brandee Fall RN * Telephone Encounter - Tori Rob - 05/10/2024 2:42 PM EDT Pt wanted to schedule pelvic ultrasound. It does not look like it has been released in order to be able to schedule. Please advise. Thank you documented in this encounterBethesda North Hospital07-25-2024 Telephone encounter Note * Telephone Encounter - Eladio García RN - 05/24/2024 10:29 AM EDT Left message for patient to call office. Eladio García RN [facility]07-25-2024 Telephone encounter Note* Telephone Encounter - Edilma Sandhu APRN.CNP - 05/24/2024 9:55 AM EDT Yes, she can have it at another facility. Is the financial secretary assisting her? Edilma Sandhu APRN.CNP [facility] Work Phone: [phone]) 914-436207-25-2024 Telephone encounter Note* Telephone Encounter - Eladio García, MAKI - 05/24/2024 9:53 AM EDT Could she get it at a different facility that is in network if the pelvic u/s order is faxed there? Eladio García RN [facility]07-25-2024 Telephone encounter Note* Telephone Encounter - Edilma Sandhu APRN.CNP - 05/24/2024 9:34 AM EDT Received an email about this and looking into it. Is patient in contact with financial secretary? Edilma Sandhu APRN.CNP [facility]07-25-2024 Telephone encounter Note* Telephone Encounter - Alejandra Beck - 05/24/2024 8:55 AM EDT Patient called and cancelled ordered Pelvic US due to [employer] insurance and CCN denial. Please contact patient to advise on alternative plan of care. [facility]07-24-2024 Telephone encounter Note* Telephone Encounter - Tori Rob - 05/23/2024 9:27 AM EDT 1st attempt lvm for pt to schedule pelvic ultrasound [facility]07-11-2024 Telephone encounter Note* Telephone Encounter - Brandee Fall RN - 05/10/2024 3:11 PM EDT Order has been reinstated and assist Pt with scheduling. Thank you! Brandee Fall, RN [facility]07-11-2024 Telephone encounter Note* Telephone Encounter - Tori Rob - 05/10/2024 2:42 PM EDT Pt wanted to schedule pelvic ultrasound. It does not look like it has been released in order to be able to schedule. Please advise. Thank you [facility]07-09-2024 NoteHNO ID: [id number] Author: DONNA MOREAU APRN.SUGAR REPROCESS OPERATOR HEAD Service: ? Author Type: Nurse Practitioner Type: Progress Notes Filed: 05/08/2024 13:34 Note Text: CC: Patient presents with: Sore Throat: X 3 days HPI: Aleyda Mejía is a 24 year old female who presents to the office with complaint of sore throat for a few days. Symptoms are staying the same. Associated symptoms includes sore throat. Denies cough, nausea, vomiting , and diarrhea. Treatments tried include nothing so far. with no relief of symptoms. Sick contacts: unknown. History of asthma, frequent episodes of bronchitis, chronic bronchitis, bronchiectasis or COPD: No Smoker: No Seasonal/environmental allergies: No The ROS is otherwise negative. The patient's pmh, medications, allergies, and past visits are reviewed. PHYSICAL EXAM: BP 131/91 Pulse 103 Temp 36.4 ?C (97.6 ?F) Resp 20 Wt (!) 147 kg (324 lb 1.2 oz) LMP 05/08/2024 (Approximate) SpO2 96% No BMI 45.37 kg/m? General appearance: alert, cooperative, pleasant, in no acute distress Head: Normocephalic Eyes: EOM's intact, conjunctiva pink and moist, no icterus, sclera white, non-injected Ears: Right ear: External ear/canal- Normal, TM - clear with good landmarks. Left ear: External ear/canal- Normal, TM - clear with good landmarks Oropharynx:moist without lesions, No erythema, exudates or tonsillar hypertrophy. Heart: Negative. RRR without obvious murmur, gallop, or rubs. No ectopy. Lungs: clear to auscultation, without rales or wheeze, good air exchange PAST MEDICAL HISTORY Diagnosis Date Anemia Asthma C. difficile diarrhea COVID-19 08/03/2021 on ventilator 40 days Depression DVT (deep venous thrombosis) (HCC) right knee-during Covid hospitalization Eczema History of DVT (deep vein thrombosis) 03/11/2022 03/15/22 No indication for lovenox in . Will consider lovenox for 6 weeks . SW 03/11/2022 She states that she developed a blood clot under her right knee due to COVID and was treated at the [facility]. States she has been off Eliquis since December. TKRN Scarring of lung Covid related Tachycardia, unspecified post covid PAST SURGICAL HISTORY Procedure Laterality Date SECTION HX 10/01/2022 CHEST TUBES-SPECIFY covid treatment PAST SURGICAL HISTORY OF wisdom teeth TRACHEOSTOMY PLANNED SEPARATE PROCEDURE during Covid ventilator ALLERGIES Alcohol MEDICATIONS SYMBICORT 160-4.5 mcg/actuation inhaler Inhale 2 Puffs as instructed two times a day. Uses as needed etonogestrel (NEXPLANON) subdermal implant 68 mg 1 Each by SUBDERMAL route as directed. ALBUTEROL INHALATION Inhale as instructed. FAMILY HISTORY Problem Relation Age of Onset Diabetes Mother Hypertension Father No Known Problems Sister No Known Problems Brother No Known Problems Brother Leukemia Maternal Grandmother Heart Maternal Grandmother Suicide / Suicidal Behaviors Maternal Grandfather No Known Problems Paternal Grandmother No Known Problems Paternal Grandfather Social History Tobacco Use Smoking status: Never Smokeless tobacco: Never Vaping Use Vaping Use: Never used Substance Use Topics Alcohol use: Not Currently Drug use: Not Currently Types: Marijuana ASSESSMENT/PLAN: 1. Sore throat - ICD9: 462, ICD10: J02.9 - STREP A MOLECULAR (POC) - neg Believed to be viral at this time no viral testing at this time. Potential red flag symptoms discussed with the patient. Reviewed appropriate action plan to take if red flag symptoms occur. Patient agreeable to treatment plan. Donna Moreau APRN.[facility]07-09-2024 History of Present illness Narrative* Donna Moreau APRN.RADHA - 05/08/2024 1:10 PM EDT CC: Patient presents with: Sore Throat: X 3 days HPI: Aleyda Mejía is a 24 year old female who presents to the office with complaint of sore throat for a few days. Symptoms are staying the same. Associated symptoms includes sore throat. Denies cough, nausea, vomiting , and diarrhea. Treatments tried include nothing so far. with no relief of symptoms. Sick contacts: unknown. History of asthma, frequent episodes of bronchitis, chronic bronchitis, bronchiectasis or COPD: No Smoker: No Seasonal/environmental allergies: No The ROS is otherwise negative. The patient's pmh, medications, allergies, and past visits are reviewed. PHYSICAL EXAM: BP 131/91 Pulse 103 Temp 36.4 C (97.6 F) Resp 20 Wt (!) 147 kg (324 lb 1.2 oz) LMP 05/08/2024 (Approximate) SpO2 96% No BMI 45.37 kg/m General appearance: alert, cooperative, pleasant, in no acute distress Head: Normocephalic Eyes: EOM's intact, conjunctiva pink and moist, no icterus, sclera white, non-injected Ears: Right ear: External ear/canal- Normal, TM - clear with good landmarks. Left ear: External ear/canal- Normal, TM - clear with good landmarks Oropharynx:moist without lesions, No erythema, exudates or tonsillar hypertrophy. Heart: Negative. RRR without obvious murmur, gallop, or rubs. No ectopy. Lungs: clear to auscultation, without rales or wheeze, good air exchange PAST MEDICAL HISTORY Diagnosis Date Anemia Asthma C. difficile diarrhea COVID-19 08/03/2021 on ventilator 40 days Depression DVT (deep venous thrombosis) (HCC) right knee-during Covid hospitalization Eczema History of DVT (deep vein thrombosis) 03/11/2022 03/15/22 No indication for lovenox in . Will consider lovenox for 6 weeks . SW 03/11/2022 She states that she developed a blood clot under her right knee due to COVID and was treated at the [facility]. States she has been off Eliquis since December. TKRN Scarring of lung Covid related Tachycardia, unspecified post covid PAST SURGICAL HISTORY Procedure Laterality Date SECTION HX 10/01/2022 CHEST TUBES-SPECIFY covid treatment PAST SURGICAL HISTORY OF wisdom teeth TRACHEOSTOMY PLANNED SEPARATE PROCEDURE during Covid ventilator ALLERGIES Alcohol MEDICATIONS SYMBICORT 160-4.5 mcg/actuation inhaler Inhale 2 Puffs as instructed two times a day. Uses as needed etonogestrel (NEXPLANON) subdermal implant 68 mg 1 Each by SUBDERMAL route as directed. ALBUTEROL INHALATION Inhale as instructed. FAMILY HISTORY Problem Relation Age of Onset Diabetes Mother Hypertension Father No Known Problems Sister No Known Problems Brother No Known Problems Brother Leukemia Maternal Grandmother Heart Maternal Grandmother Suicide / Suicidal Behaviors Maternal Grandfather No Known Problems Paternal Grandmother No Known Problems Paternal Grandfather Social History Tobacco Use Smoking status: Never Smokeless tobacco: Never Vaping Use Vaping Use: Never used Substance Use Topics Alcohol use: Not Currently Drug use: Not Currently Types: Marijuana ASSESSMENT/PLAN: 1. Sore throat - ICD9: 462, ICD10: J02.9 - STREP A MOLECULAR (POC) - neg Believed to be viral at this time no viral testing at this time. Potential red flag symptoms discussed with the patient. Reviewed appropriate action plan to take ifred flag symptoms occur. Patient agreeable to treatment plan. Donna Moreau APRN.RADHA documented in this encounterBethesda North Hospital06-26-2024 Instructions* Patient Instructions* Edilma Sandhu APRN.CNP - 04/25/2024 10:22 AM EDT Images from the original note were not included. Thank you for your interest in [facility]'s Behavioral Health at [facility]. Your provider has referred you for counseling services. Below you will find a list of options. [facility] Services at [facility] Call Behavioral Health Access Line at [phone] to schedule Individual psychotherapy In-person or virtual Wait time for first evaluation may be 12 or more weeks. Wait list spots may be available. Due to the high volume of patients this option is recommended if you are looking for short term acute symptomcoping strategies. 5-708-1-LVAT4KEJP - [place] Maternal Mental Health Hotline If you are in suicidal crisis, please call or text 4-080-489-TALK ( ) or visit the National Suicide Prevention Lifeline website. [facility].gov If you are in crisis, call 911 or go to your nearest Emergency Department Here are some links for wonderful Providers here in the community and surrounding areas. Do not hesitate to contact their offices, many are offering virtual visits during this time. Psychotherapy Services outside of [facility] Support [employer] Online Provider Directory https://[employer] (Chapter [employer])/ - can assist in finding providers in your area that might be more extensive then the list below. [facility] [place] [id number] [place] [address] [facility] [address] [place] [address] [facility] [address] [place] [address] [facility] [address] [place], [place] [id number] Dean Mckinney MD [address] [place] [address] [facility] [address], [address] [place] [address] [facility] Psychiatric Services [address] [place] [address] [facility] Counseling Services [place] / [place] [phone]/ [phone] [place] [address] [facility] [address] [facility] [phone] Aves of Counseling and Mediation [place] / Isidoro [phone] Behavioral health services of [facility] [address] [place] [address]/ [place] [phone] EV Davey, TREY Bu and Beyond Family Therapy Workshops, telehealth and at home visits. [phone] Humanistic counseling center 20 locations [facility], [place], [place], [place], [place], [place], [facility], [place], [place], [place], [place], [place], [place], [facility], [place], [place] ,[facility], [place], [place],[facility], south [place], [place], [facility] hts, [place], Jus www.Genesis Media [phone] Psychotherapy resources outside of [facility] are listed below [facility] Space Psychotherapy Web: https://www.Taiho Pharmaceutical CocleFulcrum Microsystems/ Support International Online Provider Directory https://Bionomics/ Insight Counseling https://TriOviz/ Partners for Behavioral Health and Wellness Web: https://Lumex Instruments/ Financial Fairy Tales Effective Living Web: https://Cloudamize/ LifeStance Web: https://Liveset/location/community health/[place]/ [facility] Web: https://www.[facility].org/ [facility] Web: https://O-film.org/ Recovery Resources Mental health and substance abuse help Web: https://www.Pleis.org & RESOURCES Support International Direct peer support and connection to professional resources Non-Emergency Helpline Phone: / Text: [phone] Web: https://www..net/ Online Provider Directory: https://Bionomics/ Online Support Meetings: https://www..net/get-help/msk-depvha-qixcqqb-meetings/ JEWELL Baby and Film Cutter Services Web: https://wwwHyperActive Technologies/ Spacedeck Expert information on medication use during and Text: [phone] Web: https://Tiger Logistics/ NATIONAL REGISTRY FOR PSYCHIATRIC MEDICATIONS Currently studying the safety of antidepressants, ADHD medications and atypical antipsychotics taken during TO PARTICIPATE CALL TOLL-FREE: Web: https://womensmentalhealth.org/research/pregnancyregistry/ Support Groups: [facility]- Follow on facebook Baby Bistro support group led by [facility] department [facility] Mamas - Support Group [facility].org The POEM support group [phone] Www.poemonline.org Follow on facebook - FILIPPO toro Online support meetings PSI https://www..net/get-help/mfi-capcwg-mrhvdgk-meetings/ [facility] mommy and me virtual support group 11:30-1pm Support for mothers and new babies and toddlers [place]man childbirth education: Childbirth @cc.org or call [phone] CRISIS: CRISIS HOTLINE [phone], 911 or go to the nearest ER. [facility] [phone] / [facility] [phone] https://www.[facility].org Crisis text line text the word HOME to 995165 [facility] [address] [facility] [phone] www.Attracta Ellen Gillespie clinical counseling [address] [address] www.Signostics [phone] Holding [facility] psychotherapy Kerri Marin [facility] SYSTEMS SPECIALIST-S [address] [facility] www.Core2 Group [phone]/ [place] [phone] They all offer virtual. All work with trauma Support groups Online support meetings PSI https://www..net/get-help/mnv-oqmhes-pwlqidm-meetings/ Here are the support groups they offer: Support of parents of 1 to 4 years old children POEM ( Outreach and Encouragement for Moms) offers free support for mothers experiencing depression, anxiety, and other mood and anxiety disorders. Masks are recommended but not required. No pre-registration required. Babies in arms welcome. meetings now take place on the and 3rd Susy of each month Location: [facility] [address] [place] [address] Room 122 (library room) 7-8:00 p.m. When you enter the alevism parking lot off of [address] the entrance door closest to our meeting room is on the front of the building toward the right. For those who are more comfortable with a virtual platform, Accupass offers online support group options several days of the week. To register for an online group or to find out more about POEM, website at: https://mhaohio.org/get-help/mibnbeou-qprhoj-iiifge/poem-services/ offer a confidential helpline: private Facebook group is called FILIPPO Toro Here are the groups they offer: Traumatic childbirth resources: Http://pattch.org/ https://www.FranklyeditaBefore the Call.Xceleron (Chapter 11)/ Name Location (s) Phone # (s) Services Website [facility] Psychotherapy [address] [place], [place] - [phone]; [address] [phone] In-Person GROUPS INDIVIDUAL THERAPY MATERNAL- MENTAL HEALTH MEDICATION MANAGEMENT PLAY AND ART THERAPY TELETHERAPY https://www.Educreations/services/ Jazlyn mendoza Arnold CRISTO? [address] [address] ? [address], [address] [place], [place] [address] ? SERRANO [address] [address]? Grief Support Groups Individual Grief Counseling Spiritual Care Memorial Events https://cristo.[facility].org/grief-services [facility] [address] [place], [place] [address]; ; Email: jose e@[email or web address] BioSciences Women's Mental Health; Couples Counseling; Trauma (EMDR); Stress Management; Mood and Anxiety Related Disorders- and much more https://www.pathways familycounsStartup Genome.Xceleron (Chapter 11)/ LifeStance Numerous as they have contract providers: access website to find specific providers nearyou Counseling including CBT and EMDR as well as many more modalities; Medication Management; Telehealth and In-Person https://Liveset/ Partners [facility] Wellness [address] [place], [place] [address]; [phone] Personal, Family and Group Therapy; Psychological Testing and Diagnosis; Medication Management; Life and Career Coaching; Psychoanalysis; Literacy Testing; Yoga and Meditation https://Lumex Instruments/ Fit [facility] [address] [facility] [address], [place] [address] [address] ; [address], [address] [place] [address]; Office # for both sites: Individual and Couples Counseling https://www.CourseWeaver.Xceleron (Chapter 11)/paymentinsurance.html OCD & Anxiety [facility] [address] [facility] [address], [place] [address]; Specialize in Cognitive-Behavioral Therapy (CBT) for the treatment of anxiety disorders across the lifespan. TELEHEALTH ONLY. https://ocdandanxietycentNewBridge Pharmaceuticals/faqs [facility] [address]th [place], [address] [place] [address] [facility] [place], [address] [place] [address] [facility] [place], [address] [place] [address] [place], [address], [address] [place] [address] [place] [address]. [place], [address] [place] [address] [place], [address] Transportation Services To minimize patient barriers, [facility] provides transportation services to patients who qualify. If you are unable to get to your appointment at any of our facilities, please let us know. Need help now? Stop by one of our walk-in clinics to establish behavioral health care. Counseling Indvidual, Group, Couples and Family Counseling and EMDR. Medication Management Case Management benefits applications housing assistance Substance abuse treatment Medication assisted treatment https://www.[facility].org/mental-health/ The [facility] OFFICE AT [facility] [address] [place] [address] [facility] [address] [place] [address] [facility] OFFICE [address] [place] [address] [facility] OFFICE (at [facility] [address] [place] [address] [facility] SYRINGE EXCHANGE PROGRAM & HIV SCREENING [address] [place] [address] [place] S[place]INGE EXCHANGE PROGRAM [address] [place] [address] Behavioral Health Urgent Care: [facility] Counseling Indvidual and Group Medication Management Case Management benefits applications housing assistance Substance abuse treatment Medication assisted treatment Employment Services/ Job Training https://O-film.org/ Recovery Resources [address] [place], [place] [address]: P: [phone] [address] [facility], [address], [place] [address] P: [phone] Our services include: Addiction Mental Health Treatment Assessment Psychiatry Medical Care Employment Housing Drug and Alcohol Prevention HIV/AIDS Prevention https://www.Pleis.org/ [facility] [place] [address] [facility] [address] [place] [address] [address] [place], [place] [address] [place] [address] [place] [address] [place] [address] [facility] [address] [place] [address] [place] [address] [address] [place] [address] TMS Therapy/ Counseling Psychocological Testing for ADHD Medication Management In-Person/ Telemedicine https://www.blogTV.com/patients-depression Memory & Psychological services [address] [place] [address], [place] [address] Neuropsychological Testing For ADHD https://www.memoryandpsych.com/ [facility] Main Office [address] [place] [address] [phone] Providing xoar-rc-vwie and telehealth services. Adult Case Management Community Education and Prevention Employment Outpatient Treatment - Counseling & Psychotherapy Psychiatric Services http://www.[facility].org/ [facility] and Wellness [facility] [address] [place] [address] Millie [facility]) [address] [place] [address] Virtual Appointments! Now offering safe and convenient virtual client appointments to anyone in [place]! Individual Therapy Couples/Relationship Therapy Trauma/EMDR Therapy Art Therapy Play Therapy Autism Motor Specialist Support: Parenting Skills, Parent Child Interaction Therapy, Parent Interaction Therapy Meditation Dietitian/Psych Coordinator Services Group Therapy Yoga https://www.Auction.com/ Leslie Rao [phone] Private Practice: Telehealth Only Specializes in EMDR for Trauma None documented in this encounterBet[facility]06-[facility] Note* Addendum Note - Edilma Sandhu APRN.CNP - 04/25/2024 9:49 AM EDTAddended by: EDILMA SANDHU on: 04/25/2024 09:49 AM Modules accepted: Orders [facility]06-26-2024 Miscellaneous Notes* Addendum Note - Edilma Sandhu APRN.CNP - 04/25/2024 9:49 AM EDTAddended by: EDILMA SANDHU on: 04/25/2024 09:49 AM Modules accepted: Orders documented in this encounterBethesda North Hospital06-26-2024 NoteHNO ID: [id number] Author: EDILMA SANDHU APRN.CNP Service: ? Author Type: Nurse Practitioner Type: Progress Notes Filed: 04/25/2024 10:50 Note Text: Blow Pit Operator offered: Patient declines. Aleyda Mejía is a 24 year old female who presents for problem visit of irregular bleeding. HPI: This episode of bleeding started end of February/early March has persisted for 3-4 weeks. Denies pain. Nexplanon inserted December 2022. Periods were monthly and lasted about 4 days. Experiencing stress - split up with partner 2 months ago. Has had unprotected intercourse. 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 difficile diarrhea COVID-19 08/03/2021 on ventilator 40 days Depression DVT (deep venous thrombosis) (HCC) right knee-during Covid hospitalization Eczema History of DVT (deep vein thrombosis) 03/11/2022 03/15/22 No indication for lovenox in . Will consider lovenox for 6 weeks . SW 03/11/2022 She states that she developed a blood clot under her right knee due to COVID and was treated at the [facility]. States she has been off Eliquis since December. TKRN Scarring of lung Covid related Tachycardia, unspecified post covid PAST SURGICAL HISTORY Procedure Laterality Date SECTION HX 10/01/2022 CHEST TUBES-SPECIFY covid treatment PAST SURGICAL HISTORY OF wisdom teeth TRACHEOSTOMY PLANNED SEPARATE PROCEDURE during Covid ventilator FAMILY HISTORY Problem Relation Age of Onset Diabetes Mother Hypertension Father No Known Problems Sister No Known Problems Brother No Known Problems Brother Leukemia Maternal Grandmother Heart Maternal Grandmother Suicide / Suicidal Behaviors Maternal Grandfather No Known Problems Paternal Grandmother No Known Problems Paternal Grandfather Social History Tobacco Use Smoking status: Never Smokeless tobacco: Never Vaping Use Vaping Use: Never used Substance Use Topics Alcohol use: Not Currently Drug use: Never Current Outpatient Medications Medication Sig SYMBICORT 160-4.5 mcg/actuation inhaler Inhale 2 Puffs as instructed two times a day. Uses as needed etonogestrel (NEXPLANON) subdermal implant 68 mg 1 Each by SUBDERMAL route as directed. ALBUTEROL INHALATION Inhale as instructed. No current facility-administered medications for this visit. 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: Positive for irregular vaginal bleeding Allergies and current medication updated:Yes EXAM: BP 118/68 Pulse 94 Resp 16 Wt 328 lb (148.8kg) SpO2 95% LMP 04/04/2024 GENERAL: pleasant, female in no apparent distress HEENT: Normocephalic, atraumatic, mucus membranes moist, and no lesions CHEST: Normal inspiratory effort PELVIC: external genitalia normal, normal Bartholin's glands, urethra, Ducor's glands, no vulvar lesions, cervix not completely visualized due to body habitus, good vaginal support, physiologic discharge present, normal appearing perineal body and perianal region + menses + 1.5 cm flat brown melanocytic nevi to mons pubis, no changes per patient BIMANUAL: uterus normal size, shape and consistency, no adnexal masses, and non-tender, limited due to body habitus NEURO: alert and oriented x3,exam grossly non-focal EXTREMITIES: normal ASSESSMENT AND PLAN: 1. Irregular bleeding - ICD9: 626.4, ICD10: N92.6 - To notify or go to ER if using a pad/tampon every hour or getting lightheaded/dizzy - COMPLETE BLOOD COUNT - HEMOGLOBIN A1C - THYROID STIMULATING HORMONE - T4 FREE/FREE THYROXINE - GONORRHEA/CHLAMYDIA NAAT - SYPHILIS TOTAL W/REFLEX - HIV 1/2 COMBO WITH REFLEX TO DIFFERENTIATION - HEPATITIS C ANTIBODY IA WITH CONFIRMATION - HEPATITIS B SURFACE ANTIGEN - PELVIC US WHI - Discussed new pattern may be related to stress - If all findings negative, can consider removal of Nexplanon and switch to alternate contraception RTO for annual. Edilma Sandhu APRN.CNP Medical Decision Making: Problems: Moderate: New problem with uncertain prognosis Data: Unique test(s) ordered: 3+ Risk: Low: Low risk from testing/treatment Medical Decision Making Level: 4 - [facility] History of Present illness Narrative* Edilma Sandhu APRN.CNP - 04/25/2024 9:18 AM EDT Blow Pit Operator offered: Patient declines. Aleyda Mejía is a 24 year old female who presents for problem visit of irregular bleeding. HPI: This episode of bleeding started end of February/early March has persisted for 3- 4 weeks. Denies pain. Nexplanon inserted December 2022. Periods were monthly and lasted about 4 days. Experiencing stress - split up with partner 2 months ago. Has had unprotected intercourse. 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 difficile diarrhea COVID-19 08/03/2021 on ventilator 40 days Depression DVT (deep venous thrombosis) (HCC) right knee-during Covid hospitalization Eczema History of DVT (deep vein thrombosis) 03/11/2022 03/15/22 No indication for lovenox in . Will consider lovenox for 6 weeks . SW 03/11/2022 She states that she developed a blood clot under her right knee due to COVID and was treated at the [facility]. States she has been off Eliquis since December. TKRN Scarring of lung Covid related Tachycardia, unspecified post covid PAST SURGICAL HISTORY Procedure Laterality Date SECTION HX 10/01/2022 CHEST TUBES-SPECIFY covid treatment PAST SURGICAL HISTORY OF wisdom teeth TRACHEOSTOMY PLANNED SEPARATE PROCEDURE during Covid ventilator FAMILY HISTORY Problem Relation Age of Onset Diabetes Mother Hypertension Father No Known Problems Sister No Known Problems Brother No Known Problems Brother Leukemia Maternal Grandmother Heart Maternal Grandmother Suicide / Suicidal Behaviors Maternal Grandfather No Known Problems Paternal Grandmother No Known Problems Paternal Grandfather Social History Tobacco Use Smoking status: Never Smokeless tobacco: Never Vaping Use Vaping Use: Never used Substance Use Topics Alcohol use: Not Currently Drug use: Never Current Outpatient Medications Medication Sig SYMBICORT 160-4.5 mcg/actuation inhaler Inhale 2 Puffs as instructed two times a day. Uses as needed etonogestrel (NEXPLANON) subdermal implant 68 mg 1 Each by SUBDERMAL route as directed. ALBUTEROL INHALATION Inhale as instructed. No current facility-administered medications for this visit. 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: Positive for irregular vaginal bleeding Allergies and current medication updated:Yes EXAM: BP 118/68 Pulse 94 Resp 16 Wt 328 lb (148.8kg) SpO2 95% LMP 04/04/2024 GENERAL: pleasant, female in no apparent distress HEENT: Normocephalic, atraumatic, mucus membranes moist, and no lesions CHEST: Normal inspiratory effort PELVIC: external genitalia normal, normal Bartholin's glands, urethra, Ducor's glands, no vulvar lesions, cervix not completely visualized due to body habitus, good vaginal support, physiologic discharge present, normal appearing perineal body and perianal region + menses + 1.5 cm flat brown melanocytic nevi to mons pubis, no changes per patient BIMANUAL: uterus normal size, shape and consistency, no adnexal masses, and non- tender, limited dueto body habitus NEURO: alert and oriented x3,exam grossly non-focal EXTREMITIES: normal ASSESSMENT AND PLAN: 1. Irregular bleeding - ICD9: 626.4, ICD10: N92.6 - To notify or go to ER if using a pad/tampon every hour or getting lightheaded/dizzy - COMPLETE BLOOD COUNT - HEMOGLOBIN A1C - THYROID STIMULATING HORMONE - T4 FREE/FREE THYROXINE - GONORRHEA/CHLAMYDIA NAAT - SYPHILIS TOTAL W/REFLEX - HIV 1/2 COMBO WITH REFLEX TO DIFFERENTIATION - HEPATITIS C ANTIBODY IA WITH CONFIRMATION - HEPATITIS B SURFACE ANTIGEN - PELVIC US WHI - Discussed new pattern may be related to stress - If all findings negative, can consider removal of Nexplanon and switch to alternate contraception RTO for annual. Edilma Sandhu APRN.CNP Medical Decision Making: Problems: Moderate: New problem with uncertain prognosis Data: Unique test(s) ordered: 3+ Risk: Low: Low risk from testing/treatment Medical Decision Making Level: 4 - Moderate documented in this encounterBethesda North Hospital06-25-2024 Telephone encounter Note * Telephone Encounter - Lizet Graff APRN.CNM - 04/24/2024 11:09 AM EDT Please assist patient in scheduling appointment to review concerns and discuss management. She has nexplanon in place still? Can be virtual or in person visit to start. Lizet Cruz APRN.CNM [facility] Work Phone: [phone]) 211-537506-25-2024 Miscellaneous Notes* Telephone Encounter - Lizet Graff APRN.CNM - 04/24/2024 11:09 AM EDT Please assist patient in scheduling appointment to review concerns and discuss management. She has nexplanon in place still? Can be virtual or in person visit to start. Lizet Cruz APRN.CNM * Telephone Encounter - Yuli Patel LPN - 04/24/2024 8:04 AM EDT Please see pt's mycDouble Fusiont message and further advise . Yuli Patel LPN documented in this encounterBethesda North Hospital06-25-2024 Telephone encounter Note * Telephone Encounter - Yuli Patel LPN - 04/24/2024 8:04 AM EDT Please see pt's Portalarium message and further advise . Yuli Patel LPN [facility]04-01-2024 History of Present illness Narrative* Windy Negron, RT(R) - 01/30/2024 8:30 AM EDT Radiology Service Progress Note PATIENT NAME: Aleyda Mejía DATE OF SERVICE: January 30, 2024 TIME: 8:31 AM PATIENT IDENTITY VERIFICATION COMPLETED USING TWO (2) IDENTIFIERS: Name and Date of confirmedby patient verbally. FALL SCREENING: Has the patient had 2 falls in the last year or 1 fall with injury or currently using an Ambulatory Assistive Device (Walker, Cane, Wheelchair, Crutches, etc.)? No PATIENT GENDER DATA: Female. status: : No status: NO. PATIENT RELEVANT IMPLANT DATA REVIEWED: Yes PATIENT PRESENTS WITH AN IMPLANTABLE OR ATTACHED FEED BLENDER: No RADIOLOGY DEPARTMENT: General X-ray: Exam(s) Completed: Chest X-Ray PERIPHERAL IV DATA: Not applicable SIGNED BY: RT Sean(R) January 30, 2024 8:31 AM documented in this encounterBethesda North Hospital03-31-2024 Discharge summary Author [place] [facility] January 29, 2024 7:02pm Note Date/Time January 29, 2024 7:0 2pm [facility] Medical Records Department [address] [place] [address] Emergency Department Summary 01/29/24 MR#: [id number] Acct: [id number] Name: ALEYDA MEJÍA Rep #:[id number] 5 : 2000 23 From: [place] MD PCP: Dr. Matt Mendoza MD Status:R EG ER Location: ED HPI HPI - URI History of Present Illness Chief Complaint: Cough Informant: patient Narrative Narrative: Occasionally productive cough mostly nonproductive for the past 2 weeks. Does not seem like is getting better. Hoarse. Nasal congestion or rhinorrhea. No real fevers. She had a cold prior to this that seem to be getting better beforethis started. She went to urgent care and states she was prescribed an antibiotic that she has not started yet, but she was checking her pulse ox at home and it seemed to be low at times. She is having bronchospasm episodes thatsometimes resolved and near syncope lightheadedness. She denies dyspnea when she is not coughing. She has occasional wheezing, she states she used to have asthma as a child. ROS ROS ED Constitutional Constitutional ED: Denies chills or fever(s) Eyes Eyes: Denies change in vision ENT ENT ED: Reports hoarseness, nasal congestion, rhinorrhea and sore throat; Deniesear pain Cardiovascular Cardiovascular: Denies chest pain or palpitations Respiratory/Chest Respiratory/Chest: Reports cough; Denies dyspnea Gastrointestinal Gastrointestinal: Denies abdominal pain, diarrhea, nausea or vomiting Genitourinary Genitourinary ED: Denies dysuria or hematuria Musculoskeletal Musculoskeletal: Denies myalgias or neck pain Integumentary Denies abscess or rash Neurologic Neurologic: Denies headache(s), paresthesias or weakness Psychiatric Psychiatric: Denies depression or suicidal thoughts Endocrine Endocrinology: Denies polydipsia or polyuria PFSH PFSH Medical History 16 weeks gestation of Acute respiratory failure due to COVID-19 Alcohol use Anemia Anemia Anxiety Back pain C. 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 Screening-pulmonary TB Sore throat Sprain and strain of temporomandibular joint Tonsillar enlargement URI (upper respiratory infection) Ventilator associated pneumonia Home Medications albuterol sulfate 90 mcg/actuation aerosol inhaler 2 puff inhalation Q4H PRN shortness of breath or wheezing #8.5 grams 03/07/23 [Rx Last Taken Unknown] budesonide-formoterol HFA 160 mcg-4.5 mcg/actuation aerosol inhaler (Symbicort) 2 puff inhalation BID #10.2 grams 03/07/23 [Rx Last Taken Unknown] cholecalciferol (vitamin D3) 25 mcg (1,000 unit) capsule 25 mcg PO DAILY 03/07/23 [History Last Taken Unknown] ondansetron 4 mg disintegrating tablet 4 mg PO Q8H PRN PRN Nausea #10 tabs 04/23/23 [Rx Last Taken Unknown] albuterol sulfate 0.63 mg/3 mL solution for nebulization 0.63 mg (3 mL) inhalation Q4H PRN shortness of breath or wheezing #90 mL 01/01/24 [Rx Last Taken Unknown] benzonatate 200 mg capsule 200 mg PO TID PRN cough #30 caps 01/01/24 [Rx Last Taken Unknown] venlafaxine 150 mg capsule,extended release 24 hr 150 mg PO DAILY #90 caps 01/09/24 [Rx Last Taken Unknown] venlafaxine 75 mg capsule,extended release 24 hr 75 mg PO QHS #90 caps 01/09/24 [Rx Last Taken Unknown] Allergy/AdvReac Type Severity Reaction Status Date / Time No Known Allergies Allergy Verified 01/29/24 18:23 Family History Mother Diabetes Grandmother Hypertension Leukemia Surgical History History of placement of chest tube History of tracheostomy Social History adopted: No household members: significant other housing: house number of children: 0 current occupational status: unemployed history of recent travel: No Smoking Status: Never smoker alcohol intake: former details: rare ETOH prior to COVID infection in July 2021. None currently substance use type: does not use EXAM Physical Exam Const Vital Signs: 01/29/24 18:19 01/29/24 18:18 Temperature 96.3 F L Temperature Source Temporal Pulse Rate 98 Respiratory Rate 22 H Respiratory Effort Normal Respiratory Depth Normal Respiratory Pattern Normal Blood Pressure 168/98 H Blood Pressure Mean 121 Pulse Ox 98 Oxygen Delivery Method Room Air Room Air Positive well nourished, well developed and obese General Appearance ED: well developed and NAD Nutritional Appearance: obese HEENT Reports moist mucous membranes HEENT Narrative: Hoarseness without stridor normocephalic and atraumatic Throat: Negative for posterior oropharynx abnormal Eyes PERRL and EOMs intact bilaterally Neck no lymphadenopathy, supple and no meningeal signs Resp normal respiratory effort and clear to auscultation bilaterally Cardio no murmurs Rate: regular rate Rhythm: regular rhythm Neuro oriented x3, CN's II-XII intact bilaterally and no sensory deficits noted Sensorium / Orientation: alert Motor Exam: strength 5/5 throughout Psych Mood & Affect: anxious Skin Lesions: no lesions Rashes: no rashes MDM MDM MDM Narrative Medical decision making narrative: Oxygenation is excellent here, even with ambulation she is 95%. Her lungs are clear to auscultation, the other vital signs are unremarkable, and I think she is having vagal phenomenon from bronchospasm. I think this is probably all viral, if she wants to do the antibiotic to cover atypicals I think that is reasonable, but I suspect viral etiology. I will add a dose of Decadron to her regimen and supportive care also advised along with [id number] cold and flu medications. Discharge Plan Triage Chief Complaint: Cough ED Provider: [place] Dx/Rx/DC Orders Clinical Impression: Acute bronchitis with bronchospasm Instructions: Acute Bronchitis Prescriptions: No Action cholecalciferol (vitamin D3) 25 mcg (1,000 unit) capsule 25 mcg PO DAILY budesonide-formoterol [Symbicort] 160-4.5 mcg/actuation HFA aerosol inhaler 2 puff inhalation BID Qty: 10.2 11RF albuterol sulfate 90 mcg/actuation HFA aerosol inhaler 2 puff inhalation Q4H PRN (Reason: shortness of breath or wheezing) Qty: 8.5 6RF Rx Instructions: administer with spacer ondansetron 4 mg tablet,disintegrating 4 mg PO Q8H PRN PRN (Reason: Nausea) Qty: 10 0RF benzonatate 200 mg capsule 200 mg PO TID PRN (Reason: cough) Qty: 30 0RF albuterol sulfate 0.63 mg/3 mL solution for nebulization 0.63 mg inhalation Q4H PRN (Reason: shortness of breath or wheezing) Qty: 90 2RF venlafaxine 150 mg capsule,extended release 24hr 150 mg PO DAILY Qty: 90 0RF venlafaxine 75 mg capsule,extended release 24hr 75 mg PO QHS Qty: 90 0RF Rx Instructions: Take with 150 for a total daily dose of 225 mg Primary Care Provider: Matt Mendoza Referrals: Matt Mendoza MD [Primary Care Provider] - 1 Week if not improving Disposition Disposition: Home, Self Care What to do if you have Problems For any increased pain, shortness of breath, bleeding, nausea or vomiting, chestpain, or any unexpected problems, contact your Primary Care Provider. Call [facility] ([phone]) or report to the closest Emergency Room. Call 911 if necessary. 01/29/24 604 <Electronically signed by [place] MD> Cosigner Signature (if applicable): CC: Dr. Matt Mendoza MD ~ Signed [facility] Work Phone: [phone] 896-162411-14-2023 Miscellaneous Notes* Telephone Encounter - Allie Berger RN - 09/13/2023 6:00 PM EST Nexplanon inserted 12/06/2022 documented in this encounterBet[facility]11-04-[facility]23 History of Present illness Narrative* Lizet Caicedo, ERICKA.SUGAR REPROCESS OPERATOR HEAD - 09/03/2023 11:08 AM EDT This note was created using [employer]. Subjective Aleyda Mejía is a 23 year old female. 23 year old female with PMH depression presents for complitns of illness. Acute onset 3 weeks ago + sinus pressure +ear pain +post nasal drainage + cough Denies SOB or dyspnea Denies fever or chills Denies tobacco usage Seen a couple week ago for same Informed it was viral Presents today with continue symptoms. The history is provided by the patient. No cryptologic technician technical was used. Sinus Problem This is a new problem. The current episode started 1 to 4 weeks ago. The problem occurs constantly.The problem has been gradually worsening. Associated symptoms include congestion, coughing, headaches, a sore throat and swollen glands. Pertinent negatives include no abdominal pain, anorexia, arthralgias, change in bowel habit, chest pain, chills, diaphoresis, fatigue, fever, joint swelling, myalgias, nausea, neck pain, numbness, rash, urinary symptoms, vertigo, visual change, vomiting or weakness. Nothing aggravates the symptoms. She has tried nothing for the symptoms. The treatment providedno relief. PAST MEDICAL HISTORY Diagnosis Date Anemia Asthma C. difficile diarrhea COVID-19 08/03/2021 on ventilator 40 days Depression DVT (deep venous thrombosis) (HCC) right knee-during Covid hospitalization Eczema History of DVT (deep vein thrombosis) 03/11/2022 03/15/22 No indication for lovenox in . Will consider lovenox for 6 weeks . SW 03/11/2022 She states that she developed a blood clot under her right knee due to COVID and was treated at the [facility]. States she has been off Eliquis since December. TKRN Scarring of lung Covid related Tachycardia, unspecified post covid PAST SURGICAL HISTORY Procedure Laterality Date SECTION HX 10/01/2022 CHEST TUBES-SPECIFY covid treatment PAST SURGICAL HISTORY OF wisdom teeth TRACHEOSTOMY PLANNED SEPARATE PROCEDURE during Covid ventilator ALLERGIES Alcohol MEDICATIONS SYMBICORT 160-4.5 mcg/actuation inhaler^Inhale 2 Puffs as instructed two times a day.^Disp: ^Rfl: etonogestrel (NEXPLANON) subdermal implant 68 mg^1 Each by SUBDERMAL route as directed.^Disp: 1 Each^Rfl: 0 venlafaxine ER (EFFEXOR XR) 37.5 mg 24 hr capsule^Take 1 capsule by mouth once daily.^Disp: 30 capsule^Rfl: 0 venlafaxine HCl (EFFEXOR ORAL)^Take 150 mg by mouth once daily.^Disp: ^Rfl: ALBUTEROL INHALATION^Inhale as instructed.^Disp: ^Rfl: amoxicillin-clavulanate potassium (AUGMENTIN) 875-125 mg per tablet^Take 1 tablet by mouth two times a day for 10 days.^Disp: 20 tablet^Rfl: 0 methylPREDNISolone (MEDROL, PATRICE,) 4 mg Dose-Pack^Follow dosing instructions, take with food.^Disp: 21 tablet^Rfl: 0 OXYGEN, HOME THERAPY,^Inhale as instructed as directed.^Disp: ^Rfl: (Patient not taking: Reported on 08/01/2023) BIOTIN ORAL^Take by mouth.^Disp: ^Rfl: (Patient not taking: Reported on 09/03/2023) FAMILY HISTORY Problem Relation Age of Onset Diabetes Mother Hypertension Father No Known Problems Sister No Known Problems Brother No Known Problems Brother Leukemia Maternal Grandmother Heart Maternal Grandmother Suicide / Suicidal Behaviors Maternal Grandfather No Known Problems Paternal Grandmother No Known Problems Paternal Grandfather Social History Tobacco Use Smoking status: Never Smokeless tobacco: Never Vaping Use Vaping Use: Never used Substance Use Topics Alcohol use: Not Currently Drug use: Never Review of Systems Constitutional: Negative for chills, diaphoresis, fatigue and fever. HENT: Positive for congestion, ear pain, postnasal drip, rhinorrhea, sinus pressure, sinus pain andsore throat. Eyes: Negative for photophobia, pain, discharge, redness, itching and visual disturbance. Respiratory: Positive for cough. Negative for apnea and chest tightness. Cardiovascular: Negative for chest pain. Gastrointestinal: Negative for abdominal pain, anorexia, change in bowel habit, nausea and vomiting. Musculoskeletal: Negative for arthralgias, joint swelling, myalgias and neck pain. Skin: Negative for color change, pallor and rash. Allergic/Immunologic: Negative for environmental allergies, food allergies and immunocompromised state. Neurological: Positive for headaches. Negative for dizziness, vertigo, facial asymmetry, weakness and numbness. Hematological: Negative for adenopathy. Does not bruise/bleed easily. Psychiatric/Behavioral: Negative for agitation and behavioral problems. Objective BP 128/84 Pulse 88 Temp 36.4 C (97.6 F) (Tympanic) Resp 18 Wt (!) 150 kg (330 lb 12.8 oz) LMP 12/27/2022 (Exact Date) SpO2 95% BMI 46.31 kg/m Physical Exam Vitals and nursing note reviewed. Constitutional: General: She is not in acute distress. Appearance: Normal appearance. She is normal weight. She is not ill-appearing, toxic-appearing or diaphoretic. HENT: Head: Normocephalic and atraumatic. Comments: +frontal sinus pressure +maxillary sinus pressure Right Ear: Ear canal and external ear normal. Left Ear: Ear canal and external ear normal. Ears: Comments: Bilateral TM's erythematous and slightly bulging Nose: Nose normal. No congestion or rhinorrhea. Mouth/Throat: Mouth: Mucous membranes are moist. Pharynx: No oropharyngeal exudate or posterior oropharyngeal erythema. Eyes: General: Right eye: No discharge. Left eye: No discharge. Extraocular Movements: Extraocular movements intact. Conjunctiva/sclera: Conjunctivae normal. Pupils: Pupils are equal, round, and reactive to light. Cardiovascular: Rate and Rhythm: Normal rate and regular rhythm. Pulses: Normal pulses. Heart sounds: Normal heart sounds. No murmur heard. No friction rub. Pulmonary: Effort: Pulmonary effort is normal. No respiratory distress. Breath sounds: Normal breath sounds. No stridor. No wheezing, rhonchi or rales. Chest: Chest wall: No tenderness. Abdominal: General: Abdomen is flat. There is no distension. Palpations: Abdomen is soft. There is no mass. Tenderness: There is no abdominal tenderness. There is no right CVA tenderness, left CVA tenderness, guarding or rebound. Hernia: No hernia is present. Musculoskeletal: General: No swelling, tenderness, deformity or signs of injury. Normal range of motion. Cervical back: Normal range of motion and neck supple. No rigidity. Right lower leg: No edema. Left lower leg: No edema. Lymphadenopathy: Cervical: No cervical adenopathy. Skin: General: Skin is warm and dry. Capillary Refill: Capillary refill takes less than 2 seconds. Coloration: Skin is not jaundiced or pale. Findings: No bruising, erythema, lesion or rash. Neurological: General: No focal deficit present. Mental Status: She is alert and oriented to person, place, and time. Cranial Nerves: No cranial nerve deficit. Sensory: No sensory deficit. Motor: No weakness. Coordination: Coordination normal. Gait: Gait normal. Psychiatric: Mood and Affect: Mood normal. Behavior: Behavior normal. Thought Content: Thought content normal. Judgment: Judgment normal. Assessment and Plan ASSESSMENT/PLAN: 1. Rhinosinusitis - ICD9: 473.9, ICD10: J32.9 (primary diagnosis) - Will begin treatment with as per antibiotic as written, see orders - The patient should also be given OTC cough and cold meds as needed, warm salt water gargles, throat lozenges and/or OTC throat spray as needed, and nasal saline gtts and suction prn for the first 5-7 days of treatment. - Supportive care with plenty of fluids, rest, and analgesia prn. - Follow up in 3-5 days if symptoms persist or worsen. - AMOXICILLIN 875 MG-POTASSIUM CLAVULANATE 125 MG TABLET - METHYLPREDNISOLONE 4 MG TABLETS IN A DOSE PACK 2. Acute otitis media, bilateral - ICD9: 382.9, ICD10: H66.93 - Will begin treatment with as per antibiotic as written, see orders - The patient should also be given OTC cough and cold meds as needed, warm salt water gargles, throat lozenges and/or OTC throat spray as needed, and nasal saline gtts and suction prn for the first 5-7 days of treatment. - Supportive care with plenty of fluids, rest, and analgesia prn. - Follow up in 3-5 days if symptoms persist or worsen. Lizet Caicedo APRN.SUGAR REPROCESS OPERATOR HEAD documented in this encounterBet[facility]10-02-2023 Instructions* Patient Instructions* Vicente Rivera APRN.RADHA - 08/01/2023 2:15 PM EDT How to Manage Common Symptoms Associated with COVID for Adults Fever- Fever is a temperature over 100.4 F and can occur when the body is fighting an infection. Tohelp treat a fever: Drink plenty of fluids and stay well hydrated. Eat small amounts of easy to digest food. Rest. Your body needs rest to recover, but getting up and moving around the house frequently is a good idea. You should try to continue doing your normal daily activities (bathing, toileting, grooming, cooking), though you will probably feel tired, and need to rest often. Avoid any heavy activity or exercise, as this will increase your body temperature. Dress in light clothing and stay covered in a light sheet. Keep the room temperature cool. Take a slightly warm (not cold or cool) bath, or apply damp washcloths to the forehead and wrists. Cough- Cough is a common symptom associated with COVID and can be bothersome. To help treat a cough: Stay well hydrated. Try warm water or tea with lemon and/or honey to help soothe the cough. Use a humidifier to add moisture to the air. Try a product with menthol, like a cough drop or a rub for your chest such as Vicks, which can helpreduce cough. Try cough drops. Avoid smoking and other strong odors or perfumes. Try breathing exercises to keep your lungs open and clear. Take a big deep breath through your noseand hold for 5 seconds before slowly releasing. Repeat frequently, while you are awake. Congestion- Runny nose or nasal congestion can occur with COVID. Treatment can help relieve symptoms: Try OTC nasal saline spray, or nasal saline rinse to relieve mucus congestion. Nasal strips can help keep nasal passages open, to increase airflow. Elevating your head with an extra pillow in bed can help reduce congestion. Using a humidifier can increase moisture in the air, and make breathing easier. Sore Throat- Another common symptom with COVID, can be managed at home by: Stay well hydrated. Gargle with salt water - mix teaspoon salt with 1 cup of warm water and gargle. This helps to loosen mucus in the back of the throat and may reduce discomfort. Try ice chips, popsicles or lozenges to soothe the throat. Nausea/Vomiting/Diarrhea- These are common symptoms, and staying hydrated is most important. If you are nauseous or vomiting, start with small sips of water every 10-15 minutes and increase astolerated. You can try sucking an ice cube too. If tolerating, you can try pedialyte or Gatorade, or flat sprite or [id number]. Start slowly and increase as you are able to. Instead of meals, try smaller, more frequent snacks. Try eating bland foods like crackers, toast, rice, and applesauce. Avoid spicy, greasy or fried foods and dairy containing foods. Even if you aren't feeling hungry due to lack of smell or taste, it is important to try to take in some food when you are able. After drinking and eating, rest in an upright position for up to two hours as needed to help decrease nauseous feelings. Try closing your eyes, avoid moving and watching TV. Avoid strong odors that can make you feel more nauseated. When to seek emergency medical attention Look for emergency warning signs for COVID-19. If having any of these symptoms, seek emergency medical care immediately: Trouble breathing Persistent pain or pressure in the chest New confusion Inability to wake or stay awake Bluish lips or face *This list is not all possible symptoms. Please call your medical provider for any other symptoms that are severe or concerning to you. documented in this encounterBet[facility]10-02-2023 History of Present illness Narrative* Vicente Rivera APRN.CNP - 08/01/2023 2:01 PM EDT Subjective HPI Nontoxic-appearing female presents urgent care chief complaint sore throat nasal congestion. Duration of symptoms 3 days. Associated symptoms listed above. 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 There areseveral people with COVID-19. Denies any significant pain currently. States sore throat is worsening. No OTC medications today. Denies any fever body aches chills productive cough chest pain shortness of breath pleuritic pain hemoptysis nausea vomiting abdominal pain change in bowel or bladder habits. Past medical history prescription medication use and allergies reviewed. .Patient presents with: Sore Throat: Swollen tonsils x 3 days PAST MEDICAL HISTORY Diagnosis Date Anemia Asthma C. difficile diarrhea COVID-19 08/03/2021 on ventilator 40 days Depression DVT (deep venous thrombosis) (HCC) right knee-during Covid hospitalization Eczema History of DVT (deep vein thrombosis) 03/11/2022 03/15/22 No indication for lovenox in . Will consider lovenox for 6 weeks . SW 03/11/2022 She states that she developed a blood clot under her right knee due to COVID and was treated at the [facility]. States she has been off Eliquis since December. TKRN Scarring of lung Covid related Tachycardia, unspecified post covid PAST SURGICAL HISTORY Procedure Laterality Date SECTION HX 10/01/2022 CHEST TUBES-SPECIFY covid treatment PAST SURGICAL HISTORY OF wisdom teeth TRACHEOSTOMY PLANNED SEPARATE PROCEDURE during Covid ventilator ALLERGIES Alcohol MEDICATIONS etonogestrel (NEXPLANON) subdermal implant 68 mg^1 Each by SUBDERMAL route as directed.^Disp: 1 Each^Rfl: 0 venlafaxine ER (EFFEXOR XR) 37.5 mg 24 hr capsule^Take 1 capsule by mouth once daily.^Disp: 30 capsule^Rfl: 0 venlafaxine HCl (EFFEXOR ORAL)^Take 150 mg by mouth once daily.^Disp: ^Rfl: BIOTIN ORAL^Take by mouth.^Disp: ^Rfl: ALBUTEROL INHALATION^Inhale as instructed.^Disp: ^Rfl: OXYGEN, HOME THERAPY,^Inhale as instructed as directed.^Disp: ^Rfl: (Patient not taking: Reported on 08/01/2023) FAMILY HISTORY Problem Relation Age of Onset Diabetes Mother Hypertension Father No Known Problems Sister No Known Problems Brother No Known Problems Brother Leukemia Maternal Grandmother Heart Maternal Grandmother Suicide / Suicidal Behaviors Maternal Grandfather No Known Problems Paternal Grandmother No Known Problems Paternal Grandfather Social History Tobacco Use Smoking status: Never Smokeless tobacco: Never Vaping Use Vaping Use: Never used Substance Use Topics Alcohol use: Not Currently Drug use: Never BP 124/84 Pulse 85 Temp 36.8 C (98.3 F) Resp 22 Wt (!) 152.8 kg (336 lb 12.8 oz) LMP 12/27/2022 (Exact Date) SpO2 95% BMI 47.15 kg/m ' Review of Systems Constitutional: Negative for chills, fever and malaise/fatigue. HENT: Positive for sore throat. Negative for congestion, ear discharge, ear pain and sinus pain. Eyes: Negative for blurred vision, pain, discharge and redness. Respiratory: Negative for cough, hemoptysis, sputum production, shortness of breath, wheezing and stridor. Cardiovascular: Negative for chest pain. Gastrointestinal: Negative for abdominal pain, diarrhea, nausea and vomiting. Musculoskeletal: Negative for myalgias. Skin: Negative for itching and rash. Neurological: Negative for dizziness and headaches. Objective Physical Exam Constitutional: General: She is not in acute distress. Appearance: She is not diaphoretic. HENT: Head: Normocephalic. Jaw: No trismus, tenderness, swelling or pain on movement. Mouth/Throat: Lips: Ricardo. Mouth: Mucous membranes are moist. Pharynx: Oropharynx is clear. Uvula midline. Posterior oropharyngeal erythema present. No pharyngeal swelling, oropharyngeal exudate or uvula swelling. Tonsils: No tonsillar exudate or tonsillar abscesses. Eyes: Conjunctiva/sclera: Conjunctivae normal. Pupils: Pupils are equal, round, and reactive to light. Cardiovascular: Rate and Rhythm: Normal rate and regular rhythm. Heart sounds: Normal heart sounds. Pulmonary: Effort: Pulmonary effort is normal. No tachypnea, accessory muscle usage or respiratory distress. Breath sounds: Normal breath sounds. No stridor. No wheezing, rhonchi or rales. Abdominal: General: There is no distension. Palpations: Abdomen is soft. Tenderness: There is no abdominal tenderness. There is no guarding or rebound. Musculoskeletal: Cervical back: Normal range of motion and neck supple. No edema, erythema, rigidity or tenderness. No pain with movement. Normal range of motion. Lymphadenopathy: Cervical: No cervical adenopathy. Skin: General: Skin is warm and dry. Neurological: Mental Status: She is alert and oriented to person, place, and time. ASSESSMENT/PLAN: 1. Sore throat - ICD9: 462, ICD10: J02.9 (primary diagnosis) - STREP A MOLECULAR (POC) - COVID NAAT, UPPER RESPIRATORY, ROUTINE 2. Viral illness - ICD9: 079.99, ICD10: B34.9 - COVID NAAT, UPPER RESPIRATORY, ROUTINE Strep test negative. COVID-19 test ordered. Treat accordingly test results. Patient is a candidate for antiviral therapy. Patient was educated on supportive therapies. Patient will follow up with primary care provider as needed. Patient was instructed to immediately proceed to emergency room for any new, worsening, or symptoms lasting longer than anticipated. The patient's clinical presentation is otherwise unremarkable at this time. Based on exam and clinical finding, the patient is stable fordischarge. Plan of care was discussed with patient. Patient verbalizes understanding and agrees to plan of care. This note was generated using [employer] software. It may contain errors in wording, punctuation, or spelling. Vicente Rivera APRN.RADHA documented in this encounterBethes[facility]08-14-2023 History of Present illness Narrative* Donna Moreau APRN.CNP - 06/13/2023 5:50 PM EDT Patient came in with complaints of pain in her upper right arm. Patient had a blood clot 2 years ago. Patient says she is concerned for blood clot today. Patient says she would like it ruled out today. Patient says her family wanted her to get it checked. At this time patient was instructed that she would have to go today to the ER in order to get it ruled out. Patient was okay with that and she is going to go to the ER. documented in this encounterBethesda [facility] Hospital06-24-2023 Hospital Discharge instructions Additional Instructions I prescribed nausea medicine to take as needed. Drink plenty of fluids. Most viral diarrhea resolves on its own within 7 to 10 days. Return to ER if symptoms worsen.[facility] Work Phone: [phone]) 724-761703-10-2023 History of Present illness Narrative* Angelic Marx APRN.CNP - 01/07/2023 8:31 AM EST Aleyda Mejía is a 22 year old female who presents for problem visit blisters on c/s line for 1 week(s). HPI: pt states that she has a blood blister at each end of her c/s scar. She did some bloody discharge out the the left side and it seems better, but the right side is raised and tender. Pt denies any fevers. 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 difficile diarrhea COVID-19 08/03/2021 on ventilator 40 days Depression DVT (deep venous thrombosis) (HCC) right knee-during Covid hospitalization Eczema History of DVT (deep vein thrombosis) 03/11/2022 03/15/22 No indication for lovenox in . Will consider lovenox for 6 weeks . SW 03/11/2022 She states that she developed a blood clot under her right knee due to COVID and was treated at the [facility]. States she has been off Eliquis since December. TKRN Scarring of lung Covid related Tachycardia, unspecified post covid PAST SURGICAL HISTORY Procedure Laterality Date SECTION HX 10/01/2022 CHEST TUBES-SPECIFY covid treatment PAST SURGICAL HISTORY OF wisdom teeth TRACHEOSTOMY PLANNED SEPARATE PROCEDURE during Covid ventilator FAMILY HISTORY Problem Relation Age of Onset Diabetes Mother Hypertension Father No Known Problems Sister No Known Problems Brother No Known Problems Brother Leukemia Maternal Grandmother Heart Maternal Grandmother Suicide / Suicidal Behaviors Maternal Grandfather No Known Problems Paternal Grandmother No Known Problems Paternal Grandfather Social History Tobacco Use Smoking status: Never Smokeless tobacco: Never Vaping Use Vaping Use: Never used Substance Use Topics Alcohol use: Not Currently Drug use: Never Current Outpatient Medications Medication Sig etonogestrel (NEXPLANON) subdermal implant 68 mg 1 Each by SUBDERMAL route as directed. vit A/vit C/biotin/zinc/copper (DESD-OYEP-SUJH,VIT A,C-BIOTIN, ORAL) Take by mouth. (Patient not taking: Reported on 12/06/2022) ibuprofen (MOTRIN) 600 mg tablet Take 1 tablet by mouth every 6 hours as needed for pain. venlafaxine ER (EFFEXOR XR) 37.5 mg 24 hr capsule Take 1 capsule by mouth once daily. diphenhydrAMINE (BENADRYL) 25 mg tablet Take 25 mg by mouth every 6 hours as needed. OXYGEN, HOME THERAPY, Inhale as instructed as directed. PNV no.95/ferrous fum/folic ac ( ORAL) Take by mouth. venlafaxine HCl (EFFEXOR ORAL) Take 150 mg by mouth once daily. BIOTIN ORAL Take by mouth. ALBUTEROL INHALATION Inhale as instructed. Current Facility-Administered Medications Medication Dose Route Frequency perflutren lipid microspheres 1.3 mL in NaCl (PF) 0.9% 10 mL injection (DEFINITY) INTRAVENOUS DIRECTED PRN sodium chloride 0.9 % (flush) 10 mL (BD POSIFLUSH) 10 mL INTRAVENOUS DIRECTED PRN perflutren lipid microspheres 1.3 mL in NaCl (PF) 0.9% 10 mL injection (DEFINITY) INTRAVENOUS DIRECTED PRN sodium chloride 0.9 % (flush) 10 mL (BD POSIFLUSH) 10 mL INTRAVENOUS DIRECTED PRN Allergies As of Date: 01/07/2023 Allergen Noted Reaction ALCOHOL 03/11/2022 Rash Fully Assessed 12/06/2022 REVIEW OF SYSTEMS Expanded ROS: N/A Allergies and current medication updated:Yes EXAM: LMP 01/17/2022 GENERAL: pleasant, female in no apparent distress HEENT: Normocephalic, atraumatic, and no lesions CHEST: Normal inspiratory effort ABDOMEN: soft and left end of c/s scar there is a tiny pinhole with no drainage noted and no sutureseen. The right end of the c/s there is red, raise area. I was able to pull a hair out of the area and was able to squeeze small amount of pus/bloody discharge from the area NEURO: alert and oriented x3,exam grossly non-focal ASSESSMENT/PLAN: 1. Ingrown hair - ICD9: 704.8, ICD10: L73.1 Pt instructed to keep area clean, if there is an increase in discharge, size, pain, or spikes a fever to follow back up in the office. Antibiotic treatment not warranted at this time. Angelic Marx APRN.SUGAR REPROCESS OPERATOR HEAD Medical Decision Making: Problems: Low: Acute, uncomplicated illness or injury Risk: Low: Low risk from testing/treatment Medical Decision Making Level: 3 - Low documented in this encounterBet[facility]02-06-[facility]23 Instructions* Patient Instructions* Shanda Fernández Ma - 12/06/2022 9:22 AM EST NEXPLANON PATIENT EDUCATION You may remove dressing in 24 hours. Expect some bruising around insertion site. You may take over the counter pain medication (i.e. Tylenol, motrin, advil, etc) if you have discomfort. Call your provider with excessive bruising or pain. Continue to use condoms for STD prevention. You should use backup contraception for 7 days to prevent . documented in this encounterBethesda [facility] Hospital02-06-2023 History of Present illness Narrative* Samara Woo MD - 12/06/2022 9:21 AM EST Aleyda is a 22 year old patient who presents for Nexplanon insertion. Patient's last menstrual periodwas 01/17/2022 (within weeks). VITALS: LMP 01/17/2022 test: negative Nexplanon lot #: [id number] Exp date: 06/11/2024 UNIVERSAL PROTOCOL / SAFETY CHECKLIST Procedure to be Performed: nexplanon insertion Sign In: A Moment of CARE was completed. Personnel directly involved with the procedure wore the appropriate PPE (Personal Protective Equipment). Patient/Surrogate Stated/Verified: PATIENT VERIFIED(optional for EMERGENT procedures): Patient name, Date of , Relevant allergies, and The intended procedure Time Out Communication: Intended patient and procedure match the source documents. Consent documented and matches the intended procedure. Implant(s) inserted: Correct implant(s) confirmed including size and side. and Expiration date(s) reviewed. Sign Out: SIGN OUT (optional for EMERGENT procedures): No specimen collected. Samara Woo M.D. TECHNIQUE: Patient placed in supine position with left) bent at the elbow and placed over the head. Skin cleansed with betadine. 0.2mL of 0.5% bupivicaine with epi injected subQ along insertion site. Nexplanon aby inserted under sterile technique. After insertion by the provider, the aby was palpable under the skin by both patient and provider. Steristrips and sterile pressure dressing applied. A&P: Nexplanon inserted without complications. Patient user card was filled out and given to the patient. The patient was instructed to remove the dressing after 24 hours. Advised to use backup contraception for 7 days. Samara Woo MD documented in this encounterBethesda [facility] Hospital01-20-2023 History of Present illness Narrative* Samara Woo MD - 11/19/2022 8:25 AM EST VISIT Aleyda Mejía is a 22 year old year old here for visit. Delivery Summary: c-s ROS/ Recovery: Feeding: Breast feeding problems: None Menses since delivery: spotting Menstrual pattern prior to : Regular periods [place] since delivery: Resumed Depression: admits to symptoms of depression. OB Depression and Anxiety Screening- This Encounter (since 11/18/2022) Over the past 2 weeks have you felt down, depressed, or hopeless? Positive - Further Testing Indicated I have been able to laugh and see the funny side of things. Definitely not so much now I have looked forward with enjoyment to things. Definitely less than I used to I have blamed myself unnecessarily when things went wrong. Not very often I have been anxious or worried for no good reason. Yes, sometimes I have felt scared or panicky for no good reason. Yes, quite a lot Things have been getting on top of me. Yes, sometimes I haven't been coping as well as usual I have been so unhappy that I have had difficulty sleeping. Not very often I have felt sad or miserable. Yes, quite often I have been so unhappy that I have been crying. Only occasionally The thought of harming myself has occurred to me. Never [place] Depression Scale Total 16 Feeling nervous, anxious or on edge 1-Several days Not being able to stop or control worrying 2-More than half the days Anxiety Pre-Screening Total (If >/= 3 additional questions will be reviewed) 3 Worrying too much about different things 2-More than half the days Trouble relaxing 1-Several days Being so restless that it is hard to sit still 2-More than half the days Becoming easily annoyed or irritable 3-Nearly every day Feeling afraid, as if something awful might happen 1-Several days Anxiety ([place]) Full Screening Total 12 Emotional support: Yes Bowel symptoms: Negative for abdominal discomfort, blood in stools or black stools and change in bowel habits Abdomen: She reports no incisional redness, tenderness, erythema Bladder symptoms: No dysuria, gross hematuria, urinary frequency, urinary urgency, or incontinence Other issues: None Last Pap: 2021 normal HPV: negative PAST MEDICAL HISTORY Diagnosis Date Anemia Asthma C. difficile diarrhea COVID-19 08/03/2021 on ventilator 40 days Depression DVT (deep venous thrombosis) (HCC) right knee-during Covid hospitalization Eczema Scarring of lung Covid related Tachycardia, unspecified post covid PAST SURGICAL HISTORY Procedure Laterality Date SECTION HX 10/01/2022 CHEST TUBES-SPECIFY covid treatment PAST SURGICAL HISTORY OF wisdom teeth TRACHEOSTOMY PLANNED SEPARATE PROCEDURE during Covid ventilator FAMILY HISTORY Problem Relation Age of Onset Diabetes Mother Hypertension Father No Known Problems Sister No Known Problems Brother No Known Problems Brother Leukemia Maternal Grandmother Heart Maternal Grandmother Suicide / Suicidal Behaviors Maternal Grandfather No Known Problems Paternal Grandmother No Known Problems Paternal Grandfather Social History Tobacco Use Smoking status: Never Smokeless tobacco: Never Vaping Use Vaping Use: Never used Substance Use Topics Alcohol use: Not Currently Drug use: Never PHYSICAL EXAMINATION: BP 122/78 Wt 313 lb (142.0kg) LMP 01/17/2022 GENERAL: pleasant, female in no apparent distress HEENT: Normocephalic, atraumatic, mucus membranes moist, and no lesions NECK: Supple, full range of motion, no adenopathy, and thyroid normal DERMATOLOGY: Normal, without lesions, non-icteric, and non-hirsute BREAST: soft, non-tender, symmetric, no dominant mass, normal nipple-areolar complex, no lymphadenopathy, and no nipple discharge CHEST: Normal inspiratory effort ABDOMEN: soft, non-tender, and no masses. INCISION: No incisional redness, swelling, or drainage PELVIC: external genitalia normal, normal Bartholin's glands, urethra, Ducor's glands, no vulvar lesions, no cervical lesions, good vaginal support, physiologic discharge present, normal appearing perineal body and perianal region BIMANUAL: uterus normal size, shape and consistency, no adnexal masses, non- tender, and limited by habitus NEURO: alert and oriented x3,exam grossly non-focal EXTREMITIES: normal ASSESSMENT AND PLAN: 22 year old status post CS with normal course. Contraception plan: nexplanon Follow up: Depression: recommend counseling, follow up w/ PCP who manages medication. She is comfortable w/ this plan recommend health optomization and d/w her family planning Samara Woo MD documented in this encounterBethesda [facility] Hospital01-20-2023 Procedure [facility] Procedure [facility]01-09-2023 Miscellaneous Notes* Telephone Encounter - Samara Woo MD - 11/08/2022 1:49 PM EST Please send her some information on therapists. Her current meds are managed by her PCP and so she can follow up there as well. Samara Woo MD documented in this encounterBethesda North Hospital12-09-2022 History of Present illness Narrative* Samara Woo MD - 10/08/2022 9:11 AM EST EARLY VISIT Aleyda Mejía is a 22 year old here for 1 week visit. Delivery Summary: Mohsen Mejía [[id number]] Delivery Information: Delivery Date: 10/01/22 Delivery type: , Low Transverse Delivering Clinician: Kevin Capellan MD : Gender: Male Weight (grams): 3477 g One Minute : 8 Five Minute : 9 ROS: General: Denies any fever or chills Hypertension Screening: Headache? No. Visual Changes? No Epigastric Pain? No Increased Swelling? yes Taking any BP medications at home? No If applicable, monitoring BP at home? (If Yes, include results) NA Mood: normal still on venlavaxine Depression: denies symptoms of depression. OB Depression and Anxiety Screening- This Encounter (since 10/07/2022) None Feeding: Breast feeding problems: None Bladder: No dysuria, gross hematuria, urinary frequency, urinary urgency, or incontinence Bowel symptoms: Negative for abdominal discomfort, blood in stools or black stools and change in bowel habits Abdomen: She reports no incisional redness, tenderness, erythema Bleeding: light flow Bottom and Perineum: No issues Sleep: no sleep concerns, feels rested Emotional support: Yes Exercise: N/A Other issues: None PHYSICAL EXAMINATION: BP 126/82 Wt (!) 327 lb (148.3 kg) LMP 01/17/2022 (Within Weeks) Yes BMI 45.61 kg/m General: pleasant,female in no apparent distress, A&O x 3. Skin warm and intact. Breast: Deferred Abdomen: soft, non-tender, and no masses /Incision: No incisional redness, swelling, or drainage Pelvic: Deferred Bimanual: Deferred ASSESSMENT AND PLAN: 22 year old status post CS with normal course. Contraception plan: considering . Reinforced 6-week pelvic rest. Encouraged condom usage should patient deviate. Education: resources provided - see MA/RN note Info on larc given Follow up: Return to Clinic for 6 week visit and as needed Medical Decision Making: Medical Decision Making Level: 1 - N/A Samara Woo MD documented in this encounterBethesda North Hospital12-04-2022 History of Past illness Narrative* Problem Noted Date Resolved Date care following delivery 01/202211/19/2022 care 08/24/2022 10/03/2022 Last Assessment & Plan: Third trimester counseling was provided. Abnormal glucose complicating 07/27/2010/03/2022 Overview: needs 3 hr July 27, 2022 Samara Woo MD Last Assessment & Plan: Patient with negative GDM screening (3hr GTT normal). US today with accelerated growth velocity. Serial assessment of growth planned with next evaluation in ~4 weeks. History of DVT (deep vein thrombosis) 03/11/2022 11/19/2022 Overview: 03/15/22 No indication for lovenox in . Will consider lovenox for 6 weeks . 03/11/2022 She states that she developed a blood clot under her right knee due to COVID and was treated at the [facility]. States she has been off Eliquis since December. TKRN Last Assessment & Plan: Reviewed recommendation for LMWH prophylaxis postoperatively given the plan for primary CD. VTE precautions reviewed. Obesity in 03/11/2022 10/03/2022 Overview: Current BMI 48. 5/ BMI 39.6. Baby ASA after 12 weeks. Growth US q 4 wks starting at 32 wks. NST starting at 36 wks. 2Patient is obese. We will plan on early hemoglobin A1c.TKRN Last Assessment & Plan: BP stable/normal. Continue ASA prophylaxis. Pre-E sx/precautions were reviewed. Nausea and vomiting during 03/11/2022 06/01/2022 Overview: 2Patient is complaining of nausea and occasional vomiting in . Dietary considerations discussed . Vitamin B6 recommended. Advised patient to call/come in if she is unable to keep any food or fluids down in a 24-hour period. TKRN Patient request for diagnostic testing 2 06/01/2022 Overview: 2Discussed aneuploidy screening with patient. Patient desires nuchal ultrasound and sequential testing. Patient declines genetic carrier screening testing.Allie Berger RN documented as of this encounter (statuses as of 11/19/2022) [facility] History of Past illness Narrative* Problem Noted Date Resolved Date care following delivery 01/202211/19/2022 care 08/24/2022 10/03/2022 Last Assessment & Plan: Third trimester counseling was provided. Abnormal glucose complicating 07/27/2010/03/2022 Overview: needs 3 hr July 27, 2022 Samara Woo MD Last Assessment & Plan: Patient with negative GDM screening (3hr GTT normal). US today with accelerated growth velocity. Serial assessment of growth planned with next evaluation in ~4 weeks. History of tachycardia 03/11/2022 Overview: 03/11/2022he is currently on metoprolol for COVID related tachycardia prescribed by . I have asked her to call the doctor's office and let her know that she is to discuss any medication questions. TKRN Last Assessment & Plan: Assessment: Currently taking metoprolol prescribed by Dr. Mendoza PLAN: Continue, plan for serial growth due to BMI Tachycardia physiologically worsens 3rd tri, if recurrent palpitations would recommend Zio patch History of DVT (deep vein thrombosis) 03/11/2022 11/19/2022 Overview: 03/15/22 No indication for lovenox in . Will consider lovenox for 6 weeks . 03/11/2022 She states that she developed a blood clot under her right knee due to COVID and was treated at the [facility]. States she has been off Eliquis since December. TKRN Last Assessment & Plan: Reviewed recommendation for LMWH prophylaxis postoperatively given the plan for primary CD. VTE precautions reviewed. Obesity in 03/11/2022 10/03/2022 Overview: Current BMI 48. 5 BMI 39.6. Baby ASA after 12 weeks. Growth US q 4 wks starting at 32 wks. NST starting at 36 wks. 03/11/2022atient is obese. We will plan on early hemoglobin A1c.TKRN Last Assessment & Plan: BP stable/normal. Continue ASA prophylaxis. Pre-E sx/precautions were reviewed. Nausea and vomiting during 03/11/2022 06/01/2022 Overview: 03/11/2022atient is complaining of nausea and occasional vomiting in . Dietary considerations discussed . Vitamin B6 recommended. Advised patient to call/come in if she is unable to keep any food or fluids down in a 24-hour period. TKRN Patient request for diagnostic testing 2 06/01/2022 Overview: 2Discussed aneuploidy screening with patient. Patient desires nuchal ultrasound and sequential testing. Patient declines genetic carrier screening testing.Allie Berger RN documented as of this encounter (statuses as of 12/06/2022) [facility] History of Past illness Narrative* Problem Noted Date Resolved Date care following delivery 01/202211/19/2022 care 08/24/2022 10/03/2022 Last Assessment & Plan: Third trimester counseling was provided. Abnormal glucose complicating 07/27/20 22 10/03/2022 Overview: needs 3 hr July 27, 2022 Samara Woo MD Last Assessment & Plan: Patient with negative GDM screening (3hr GTT normal). US today with accelerated growth velocity. Serial assessment of growth planned with next evaluation in ~4 weeks. History of tachycardia 03/11/2022 3 Overview: 03/11/2022he is currently on metoprolol for COVID related tachycardia prescribed by . I have asked her to call the doctor's office and let her know that she is to discuss any medication questions. TKRN Last Assessment & Plan: Assessment: Currently taking metoprolol prescribed by Dr. Mendoza PLAN: Continue, plan for serial growth due to BMI Tachycardia physiologically worsens 3rd tri, if recurrent palpitations would recommend Zio patch History of DVT (deep vein thrombosis) 03/11/2022 11/19/2022 Overview: 03/15/22 No indication for lovenox in . Will consider lovenox for 6 weeks . 03/11/2022 She states that she developed a blood clot under her right knee due to COVID and was treated at the [facility]. States she has been off Eliquis since December. TKRN Last Assessment & Plan: Reviewed recommendation for LMWH prophylaxis postoperatively given the plan for primary CD. VTE precautions reviewed. Obesity in 03/11/2022 10/03/2022 Overview: Current BMI 48. 5/ BMI 39.6. Baby ASA after 12 weeks. Growth US q 4 wks starting at 32 wks. NST starting at 36 wks. 2Patient is obese. We will plan on early hemoglobin A1c.TKRN Last Assessment & Plan: BP stable/normal. Continue ASA prophylaxis. Pre-E sx/precautions were reviewed. Nausea and vomiting during 03/11/2022 06/01/2022 Overview: 2Patient is complaining of nausea and occasional vomiting in . Dietary considerations discussed . Vitamin B6 recommended. Advised patient to call/come in if she is unable to keep any food or fluids down in a 24-hour period. TKRN Patient request for diagnostic testing 2 06/01/2022 Overview: 2Discussed aneuploidy screening with patient. Patient desires nuchal ultrasound and sequential testing. Patient declines genetic carrier screening testing.Allie Berger RN documented as of this encounter (statuses as of 01/06/2023) [facility] History of Past illness Narrative* Problem Noted Date Resolved Date care following delivery 01/202211/19/2022 care 08/24/2022 10/03/2022 Last Assessment & Plan: Third trimester counseling was provided. Abnormal glucose complicating 07/27/2010/03/2022 Overview: needs 3 hr July 27, 2022 Samara Woo MD Last Assessment & Plan: Patient with negative GDM screening (3hr GTT normal). US today with accelerated growth velocity. Serial assessment of growth planned with next evaluation in ~4 weeks. History of tachycardia 03/11/2022 Overview: 03/11/2022he is currently on metoprolol for COVID related tachycardia prescribed by . I have asked her to call the doctor's office and let her know that she is to discuss any medication questions. TKRN Last Assessment & Plan: Assessment: Currently taking metoprolol prescribed by Dr. Mendoza PLAN: Continue, plan for serial growth due to BMI Tachycardia physiologically worsens 3rd tri, if recurrent palpitations would recommend Zio patch History of DVT (deep vein thrombosis) 03/11/2022 11/19/2022 Overview: 03/15/22 No indication for lovenox in . Will consider lovenox for 6 weeks . 03/11/2022 She states that she developed a blood clot under her right knee due to COVID and was treated at the [facility]. States she has been off Eliquis since December. TKRN Last Assessment & Plan: Reviewed recommendation for LMWH prophylaxis postoperatively given the plan for primary CD. VTE precautions reviewed. Obesity in 03/11/2022 10/03/2022 Overview: Current BMI 48. 5 BMI 39.6. Baby ASA after 12 weeks. Growth US q 4 wks starting at 32 wks. NST starting at 36 wks. 03/11/2022atient is obese. We will plan on early hemoglobin A1c.TKRN Last Assessment & Plan: BP stable/normal. Continue ASA prophylaxis. Pre-E sx/precautions were reviewed. Nausea and vomiting during 03/11/2022 06/01/2022 Overview: 03/11/2022atient is complaining of nausea and occasional vomiting in . Dietary considerations discussed . Vitamin B6 recommended. Advised patient to call/come in if she is unable to keep any food or fluids down in a 24-hour period. TKRN Patient request for diagnostic testing 2 06/01/2022 Overview: 03/11/2022iscussed aneuploidy screening with patient. Patient desires nuchal ultrasound and sequential testing. Patient declines genetic carrier screening testing.Allie Berger RN documented as of this encounter (statuses as of 01/07/2023) [facility] History of Past illness Narrative* Problem Noted Date Diagnosed Date Resolved Date care following delivery 10/03/2022 11/19/2022 care 08/24/2022 10/03/2022 Last Assessment & Plan: Third trimester counseling was provided. Abnormal glucose complicating 07/27/2022 10/03/2022 Overview: needs 3 hr July 27, 2022 Samara Woo MD Last Assessment & Plan: Patient with negative GDM screening (3hr GTT normal). US today with accelerated growth velocity. Serial assessment of growth planned with next evaluation in ~4 weeks. History of tachycardia 03/11/202212/06 Overview: 03/11/2022he is currently on metoprolol for COVID related tachycardia prescribed by . I have asked her to call the doctor's office and let her know that she is to discuss any medication questions. TKRN Last Assessment & Plan: Assessment: Currently taking metoprolol prescribed by Dr. Mendoza PLAN: Continue, plan for serial growth due to BMI Tachycardia physiologically worsens 3rd tri, if recurrent palpitations would recommend Zio patch History of DVT (deep vein thrombosis) 03/11/2022 11/19/2022 Overview: 03/15/22 No indication for lovenox in . Will consider lovenox for 6 weeks . 03/11/2022 She states that she developed a blood clot under her right knee due to COVID and was treated at the [facility]. States she has been off Eliquis since December. TKRN Last Assessment & Plan: Reviewed recommendation for LMWH prophylaxis postoperatively given the plan for primary CD. VTE precautions reviewed. Obesity in 03/11/2022 022 Overview: Current BMI 48. 5/ BMI 39.6. Baby ASA after 12 weeks. Growth US q 4 wks starting at 32 wks. NST starting at 36 wks. 2Patient is obese. We will plan on early hemoglobin A1c.TKRN Last Assessment & Plan: BP stable/normal. Continue ASA prophylaxis. Pre-E sx/precautions were reviewed. Nausea and vomiting during 03/11/2022 06/01/2022 Overview: 03/11/2022atient is complaining of nausea and occasional vomiting in . Dietary considerations discussed . Vitamin B6 recommended. Advised patient to call/come in if she is unable to keep any food or fluids down in a 24-hour period. TKRN Patient request for diagnostic testing 03/11/2022 06/01/2022 Overview: 2Discussed aneuploidy screening with patient. Patient desires nuchal ultrasound and sequential testing. Patient declines genetic carrier screening testing.Allie Berger RN documented as of this encounter (statuses as of 06/14/2023) [facility]12-04-2022 History of Past illness Narrative* Problem Noted Date Diagnosed Date Resolved Date care following delivery 10/03/2022 11/19/2022 care 08/24/2022 10/03/2022 Last Assessment & Plan: Third trimester counseling was provided. Abnormal glucose complicating 07/27/2022 10/03/2022 Overview: needs 3 hr July 27, 2022 Samara Woo MD Last Assessment & Plan: Patient with negative GDM screening (3hr GTT normal). US today with accelerated growth velocity. Serial assessment of growth planned with next evaluation in ~4 weeks. History of tachycardia 03/11/202212/06 Overview: 03/11/2022he is currently on metoprolol for COVID related tachycardia prescribed by . I have asked her to call the doctor's office and let her know that she is to discuss any medication questions. TKRN Last Assessment & Plan: Assessment: Currently taking metoprolol prescribed by Dr. Mendoza PLAN: Continue, plan for serial growth due to BMI Tachycardia physiologically worsens 3rd tri, if recurrent palpitations would recommend Zio patch History of DVT (deep vein thrombosis) 03/11/2022 11/19/2022 Overview: 03/15/22 No indication for lovenox in . Will consider lovenox for 6 weeks . 03/11/2022 She states that she developed a blood clot under her right knee due to COVID and was treated at the [facility]. States she has been off Eliquis since December. TKRN Last Assessment & Plan: Reviewed recommendation for LMWH prophylaxis postoperatively given the plan for primary CD. VTE precautions reviewed. Obesity in 03/11/2022 022 Overview: Current BMI 48. 5 BMI 39.6. Baby ASA after 12 weeks. Growth US q 4 wks starting at 32 wks. NST starting at 36 wks. SW 03/11/2022atient is obese. We will plan on early hemoglobin A1c.TKRN Last Assessment & Plan: BP stable/normal. Continue ASA prophylaxis. Pre-E sx/precautions were reviewed. Nausea and vomiting during 03/11/2022 06/01/2022 Overview: 03/11/2022atient is complaining of nausea and occasional vomiting in . Dietary considerations discussed . Vitamin B6 recommended. Advised patient to call/come in if she is unable to keep any food or fluids down in a 24-hour period. TKRN Patient request for diagnostic testing 03/11/2022 06/01/2022 Overview: 03/11/2022iscussed aneuploidy screening with patient. Patient desires nuchal ultrasound and sequential testing. Patient declines genetic carrier screening testing.Allie Berger RN documented as of this encounter (statuses as of 08/02/2023) [facility]12-04-2022 History of Past illness Narrative* Problem Noted Date Diagnosed Date Resolved Date care following delivery 10/03/2022 11/19/2022 care 08/24/2022 10/03/2022 Last Assessment & Plan: Third trimester counseling was provided. Abnormal glucose complicating 07/27/2022 10/03/2022 Overview: needs 3 hr July 27, 2022 Samara Woo MD Last Assessment & Plan: Patient with negative GDM screening (3hr GTT normal). US today with accelerated growth velocity. Serial assessment of growth planned with next evaluation in ~4 weeks. History of tachycardia 03/11/202212/06 Overview: 03/11/2022he is currently on metoprolol for COVID related tachycardia prescribed by . I have asked her to call the doctor's office and let her know that she is to discuss any medication questions. TKRN Last Assessment & Plan: Assessment: Currently taking metoprolol prescribed by Dr. Mendoza PLAN: Continue, plan for serial growth due to BMI Tachycardia physiologically worsens 3rd tri, if recurrent palpitations would recommend Zio patch History of DVT (deep vein thrombosis) 03/11/2022 11/19/2022 Overview: 03/15/22 No indication for lovenox in . Will consider lovenox for 6 weeks . 03/11/2022 She states that she developed a blood clot under her right knee due to COVID and was treated at the [facility]. States she has been off Eliquis since December. TKRN Last Assessment & Plan: Reviewed recommendation for LMWH prophylaxis postoperatively given the plan for primary CD. VTE precautions reviewed. Obesity in 03/11/2022 022 Overview: Current BMI 48. 5/ BMI 39.6. Baby ASA after 12 weeks. Growth US q 4 wks starting at 32 wks. NST starting at 36 wks. 03/11/2022atient is obese. We will plan on early hemoglobin A1c.TKRN Last Assessment & Plan: BP stable/normal. Continue ASA prophylaxis. Pre-E sx/precautions were reviewed. Nausea and vomiting during 03/11/2022 06/01/2022 Overview: 03/11/2022atient is complaining of nausea and occasional vomiting in . Dietary considerations discussed . Vitamin B6 recommended. Advised patient to call/come in if she is unable to keep any food or fluids down in a 24-hour period. TKRN Patient request for diagnostic testing 03/11/2022 06/01/2022 Overview: 03/11/2022iscussed aneuploidy screening with patient. Patient desires nuchal ultrasound and sequential testing. Patient declines genetic carrier screening testing.Allie Berger RN documented as of this encounter (statuses as of 09/04/2023) [facility]12-04-2022 History of Past illness Narrative* Problem Noted Date Diagnosed Date Resolved Date care following delivery 10/03/2022 11/19/2022 care 08/24/2022 10/03/2022 Last Assessment & Plan: Third trimester counseling was provided. Abnormal glucose complicating 07/27/2022 10/03/2022 Overview: needs 3 hr July 27, 2022 Samara Woo MD Last Assessment & Plan: Patient with negative GDM screening (3hr GTT normal). US today with accelerated growth velocity. Serial assessment of growth planned with next evaluation in ~4 weeks. History of tachycardia 03/11/202212/06 Overview: 03/11/2022he is currently on metoprolol for COVID related tachycardia prescribed by . I have asked her to call the doctor's office and let her know that she is to discuss any medication questions. TKRN Last Assessment & Plan: Assessment: Currently taking metoprolol prescribed by Dr. Mendoza PLAN: Continue, plan for serial growth due to BMI Tachycardia physiologically worsens 3rd tri, if recurrent palpitations would recommend Zio patch History of DVT (deep vein thrombosis) 03/11/2022 11/19/2022 Overview: 03/15/22 No indication for lovenox in . Will consider lovenox for 6 weeks . 03/11/2022 She states that she developed a blood clot under her right knee due to COVID and was treated at the [facility]. States she has been off Eliquis since December. TKRN Last Assessment & Plan: Reviewed recommendation for LMWH prophylaxis postoperatively given the plan for primary CD. VTE precautions reviewed. Obesity in 03/11/2022 022 Overview: Current BMI 48. 5 BMI 39.6. Baby ASA after 12 weeks. Growth US q 4 wks starting at 32 wks. NST starting at 36 wks. SW 03/11/2022atient is obese. We will plan on early hemoglobin A1c.TKRN Last Assessment & Plan: BP stable/normal. Continue ASA prophylaxis. Pre-E sx/precautions were reviewed. Nausea and vomiting during 03/11/2022 06/01/2022 Overview: 03/11/2022atient is complaining of nausea and occasional vomiting in . Dietary considerations discussed . Vitamin B6 recommended. Advised patient to call/come in if she is unable to keep any food or fluids down in a 24-hour period. TKRN Patient request for diagnostic testing 03/11/2022 06/01/2022 Overview: 2Discussed aneuploidy screening with patient. Patient desires nuchal ultrasound and sequential testing. Patient declines genetic carrier screening testing.Allie Berger RN documented as of this encounter (statuses as of 09/14/2023) [facility]12-04-2022 NoteHNO ID: [id number] Author: Ganga Randhawa MD Service: Obstetrics Author Type: Physician Type: Progress Notes Filed: 10/03/2022 10:23 AM Note Text: OBSTETRICS PROGRESS NOTE SERVICE DATE: October 03, 2022 SERVICE TIME: 09:35 ASSESSMENT/PLAN: 22 year old female who is Postoperative Day #2 status post , Low Transverse delivery with male . # care following delivery - meeting early post-op / milestone. - routine post-op / care - encourage ambulation and IS usage - encourage patient to use PO pain meds - regular diet - voiding w/o issue after Izquierdo removal yesterday - passing flatus. No BM. 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 Asymptomatic. Advised that we can continue to watch now and obtain an EKG if symptoms develop. Pt amenable to this plan. #History of DVT - reported right popliteal vein thrombus in setting of COVID-19 - no anti-coagulation during - no signs or symptoms of DVT on exam today - plan for chemoprophylaxis x 6 weeks with Lovenox - Lovenox 40 mg SQ every day started 12/, patient will require teaching prior to discharge #Depression - on venlafaxine XR 187.5 mg PO every day, restarted POD#1 - mood stable and affect normal / appropriate on exam today - continue to monitor during stay, plan for 2 week office visit to re-evaluate mood Plan of care discussed with: Patient and RN. Anticipate discharge day: POD #3-4 SUBJECTIVE: Aleyda has no current complaints. Tolerating PO intake. Urinating without difficulty. Passing flatus. Pain well controlled with current regimen. Lochia decreasing. Ambulating without difficulty. She states her HR is elevated at her usual range especially after ambulation / physical exertion. She denies dizziness, headache, lightheadedness, palpitations, chest pain, or above baseline SOB. OBJECTIVE: PHYSICAL EXAM: Heart: RR, S1, S2, no jonah, rub, or murmur appreciated Lungs: clear to auscultation Abdomen: Soft Appropriately tender to palpation Bowel sounds present Fundus firm below umbilicus Non-distended Incision: Bandage C/D/I. Extremities: No calf tenderness, No edema, and SCDs in place and activated LAST VITALS: Pulse BP Resp O2 Sat Temp Pain (!) 124 123/85 20 98 % 36.6 ?C (97.9 ?F) 3 Avg Min Max Vitals (last 12 hours) Flowsheet Row Name Average Min Max BP: Systolic 118.50 114 123 BP: Diastolic 72 59 85 Temp 36.6 ?C (97.9 ?F) 36.6 ?C (97.9 ?F) 36.6 ?C (97.9 ?F) Pulse 118.5 113 124 Resp 20 20 20 SpO2 98 % 98 % 98 % HT/WT/BMI: Height Weight BMI 180.3 cm (5' 11) (!) 152.4 kg (336 lb) 46.86 LABS ABO/RH: 09/30/2022: A; Positive RUBELLA: 04/06/2022: Positive HANDH: Hematocrit (%) Date Value 10/02/2022 33.6 Hemoglobin (g/dL) Date Value 10/02/2022 11.0 Diagnostic tests reviewed for today's visit: No new labs SIGNATURE: Ganga Randhawa MD PATIENT NAME: Aleyda Mejía DATE: October 03, 2022 TIME: 10:22 [facility]12-03-2022 NoteHNO ID: [id number] Author: Kyra Jha APRN.SUGAR REPROCESS OPERATOR HEAD Service: Obstetrics Author Type: Nurse Practitioner Type: Progress Notes Filed: 10/02/2022 8:49 AM Note Text: OBSTETRICS PROGRESS NOTE SERVICE DATE: October 02, 2022 SERVICE TIME: 0800 ASSESSMENT: 22 year old female who is Postoperative Day #1 status post , Low Transverse delivery with male . Doing well. Meeting milestones. Rh+/RI Long Covid: has hx of ventilation for 40 days with prior tracheostomy, now uses 3L nasal cannula with oxygen sat WNL Depression: on effexor requesting it to be reordered, patient was unsure if ER or regular release, did have prescription medications with her. After reviewing medication bottles 187.5 ER was ordered. Declines any current s/s, SI/HI, and reports bonding well with baby. Hx tachycardia: was previously on metoprolol until two months ago when it was determined she needed supplemental oxygen, has been off metoprolol since Hx DVT and obesity: following covid, was previously on eliquis. No anticoagulation during , started recommended 6 weeks prophylaxis Acute blood loss anemia: Postop Hgb 11.0, asymptomatic, VSS. PNV containing Fe. PLAN: Routine care. Routine postop care. Encourage ambulation and IS usage. Remove izquierdo catheter. Encourage patient to use pain meds. . Plan of care discussed with: Provider, RN, Patient. Anticipate discharge day: POD #3-4 SUBJECTIVE: Patient has no current complaints. Tolerating PO intake. Passing flatus. Pain well controlled with current regimen. Lochia decreasing. Ambulating without difficulty. OBJECTIVE: PHYSICAL EXAM: Heart: RR, S1, S2 Lungs: clear to auscultation Abdomen: Soft Appropriately tender to palpation Bowel sounds present Fundus firm below umbilicus Non-distended Incision: Bandage C/D/I. Extremities: No calf tenderness and Edema equal bilaterally LAST VITALS: Pulse BP Resp O2 Sat Temp Pain 110 91/64 18 97 % 36.8 ?C (98.2 ?F) 4 Avg Min Max Vitals (last 12 hours) Flowsheet Row Name Average Min Max BP: Systolic 93 91 95 BP: Diastolic 61.50 59 64 Temp 36.8 ?C (98.28 ?F) 36.5 ?C (97.7 ?F) 37.1 ?C (98.8 ?F) Pulse 102.5 95 110 Resp 18 18 18 SpO2 96.5 % 96 % 97 % HT/WT/BMI: Height Weight BMI 180.3 cm (5' 11) (!) 152.4 kg (336 lb) 46.86 LABS ABO/RH: 09/30/2022: A; Positive RUBELLA: 04/06/2022: Positive HANDH: Hematocrit (%) Date Value 10/02/2022 33.6 Hemoglobin (g/dL) Date Value 10/02/2022 11.0 Diagnostic tests reviewed for today's visit: Most recent labs SIGNATURE: Kyra Jha APRN.CNP PATIENT NAME: Aleyda Mejía DATE: October 02, 2022 TIME: 8:32 [facility]12-02-2022 NoteHNO ID: [id number] Author: Candelario Shaw MD Service: ? 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 Reason for block: procedure for pain Staffing Fellow: Candelario Shaw MD Performed by: fellow Preparation Sterility Preparation: hand hygiene performed prior to procedure, sterile gloves, drapes, and procedure tray, surgical cap used, mask used, sterile drape used during line insertion, skin prep agent completely dried prior to procedure Site Prep: Duraprep Procedure Details Patient position: sitting Ultrasound Guided: No Patient monitoring: Pulse OX and NIBP Approach: midline Injection technique: BENIGNO saline Region: thoracic Estimated Interspace: T12-L1 Number of Attempts: 1 Needle and Epidural Catheter Needle type: Tuohy Needle gauge: 17G Needle length: 3.5 in Needle insertion depth: 7 cm Catheter Catheter type: side hole Catheter size: 19 G Catheter at skin depth: 13 cm Assessment Sensory level: T5 Events: tolerated well without discomfort SIGNATURE: Candelario Shaw MD PATIENT NAME: Aleyda Mejía DATE: October 01, 2022 TIME: 1:17 PM CSN: [id number] Miscellaneous Notes* Telephone Encounter - Brianne Powell RN - 09/29/2022 3:05 PM EST Spoke to patient. Advised her, per [facility], nothing to eat by mouth 8 hours prior to surgery. She verbalizes understanding. Brianne Powell RN [facility] Miscellaneous Notes* Telephone Encounter - Corey Michaels MD - 09/29/2022 2:45 PM EST BMI 48 s/p COVID 08/20 requiring long ICU stay, respiratory failure, bilateral chest tubes forpneumothorax, trach, LTAC. Trach removed 10/20. Currently home oxygen dependent 3L NC. DVT but no Hx PE so not on blood thinners (except ASA). One flight of stairs with oxygen, has difficulty withoutO2. No difficulty laying flat, GERD well controlled. Seeing cardiology for persistent tachycardia. documented in this encounterBet[facility]11-30-2022 Miscellaneous Notes* Telephone Encounter - Brianne Powell RN - 09/29/2022 2:18 PM EST Patient has been identified by name and date of : Yes Informed pt that csection was rescheduled for 10/01 at 9:30am. Advised pt to report to L&D 2hours prior, at 7:30am. Pt verbalizes understanding. Advised NPO at least 8 hours prior to csectiontime. Also informed pt that she needs pre- procedure blood work (T/S, CBC, etc). Informed pt to get her labs drawn either today or tomorrow and can have it drawn at the [place] [facility]. Also informed pt th at she should be receiving a call from anesthesia either today or tomorrow to discuss medical hx. She verbalizes understanding and has no further questions at this time. Brianne Powell RN [facility] documented in this encounterBet[facility]11-[facility]22 History of Present illness Narrative* Samara Woo MD - 09/28/2022 4:59 PM EST NST SUMMARY PROVIDER ASSESSMENT AND INTERPRETATION Aleyda Mejía is a 22 year old female, , who is at 37w1d with an KOFFI of 10/18/2022, by Ultrasound dating method. Indications for NST: Obesity Baseline: 135 Variability: Moderate Accelerations: Present 15 X 15 Decelerations: None Contractions: TOCO: None Interpretation: Category I and Reactive SIGNATURE: Samara Woo MD documented in this encounterBethesda [facility] Hospital11-29-2022 History and physical note * Samara Woo MD - 09/28/2022 4:55 PM EST Pre-Op History and Physical HPI: The patient is a 22 year old female presenting for pre-operative visit. She is scheduled for , for LGA, post covid SOB, decreased exercise tolerance on 10/01/22. Procedure discussed along with risks, benefits and complications. Other alternatives discussed for management. Consent form signed? Yes. PAST MEDICAL HISTORY Diagnosis Date Anemia Asthma C. difficile diarrhea COVID-19 08/03/2021 on ventilator 40 days Depression DVT (deep venous thrombosis) (HCC) right knee-during Covid hospitalization Eczema Scarring of lung Covid related Tachycardia, unspecified post covid PAST SURGICAL HISTORY Procedure Laterality Date CHEST TUBES-SPECIFY covid treatment PAST SURGICAL HISTORY OF wisdom teeth TRACHEOSTOMY PLANNED SEPARATE PROCEDURE during Covid ventilator Current Outpatient Medications Medication Sig Dispense Refill diphenhydrAMINE (BENADRYL) 25 mg tablet Take 25 mg by mouth every 6 hours as needed. OXYGEN, HOME THERAPY, Inhale as instructed as directed. venlafaxine ER (EFFEXOR XR) 37.5 mg 24 hr capsule Take 5 capsules by mouth once daily. (Patient taking differently: Take 37.5 mg by mouth once daily.) aspirin 81 mg cap Take 81 mg by mouth once daily. PNV no.95/ferrous fum/folic ac ( ORAL) Take by mouth. metoprolol tartrate, short acting, (LOPRESSOR) 25 mg tablet Take 25 mg by mouth twice daily. venlafaxine HCl (EFFEXOR ORAL) Take 150 mg by mouth once daily. BIOTIN ORAL Take by mouth. ALBUTEROL INHALATION Inhale as instructed. Current Facility-Administered Medications Medication Dose Route Frequency Provider Last Rate Last Admin perflutren lipid microspheres 1.3 mL in NaCl (PF) 0.9% 10 mL injection (DEFINITY) INTRAVENOUS DIRECTED PRStephanie Moreau MD sodium chloride 0.9 % (flush) 10 mL (BD POSIFLUSH) 10 mL INTRAVENOUS DIRECTED PRStephanie Moreau MD perflutren lipid microspheres 1.3 mL in NaCl (PF) 0.9% 10 mL injection (DEFINITY) INTRAVENOUS DIRECTED PRStephanie Arevalo MD sodium chloride 0.9 % (flush) 10 mL (BD POSIFLUSH) 10 mL INTRAVENOUS DIRECTED PRN Indira Arevalo MD ALLERGIES: Alcohol PERSONAL HISTORY: Social History Tobacco Use Smoking status: Never Smokeless tobacco: Never Vaping Use Vaping Use: Never used Substance Use Topics Alcohol use: Not Currently Drug use: Never FAMILY HISTORY: FAMILY HISTORY Problem Relation Age of Onset Diabetes Mother Hypertension Father No Known Problems Sister No Known Problems Brother No Known Problems Brother Leukemia Maternal Grandmother Heart Maternal Grandmother Suicide / Suicidal Behaviors Maternal Grandfather No Known Problems Paternal Grandmother No Known Problems Paternal Grandfather REVIEW OF SYMPTOMS: GENERAL: denies fevers or chills ENDOCRINOLOGY: has not been on steroids Cardiology : denies palpitations or chest pain Respiratory: some productive cough, no SOB or wheezing Hematology: denies history of prolonged bleeding or easy bruising or VTE Allergy: Denies history of personal or family history of allergy to anesthesia PHYSICAL EXAMINATION: VITALS: Blood pressure 120/76, weight (!) 336 lb 11.2 oz (152.7 kg), last menstrual period 01/17/2022. GENERAL: The patient is well nourished, well hydrated in no acute distress. , The patient is oriented to time, place, and person. NECK: Supple. No lynphadenopathy, normal thyroid, no thyromegaly. LUNGS: diminished sounds bilaterally but no rhales. HEART: Regular rate and rhythm, Normal heart sounds, and No murmurs or gallops IMPRESSION: Estimated Date of Delivery: 10/18/22 W/ LGA fetus, decreased exercise tolerance, multiple medical comorbidities, h/o DVT when she had COVID, post covid lung fibrosis requiring O2 during the PLAN: The risks/benefits/alternatives and personal involved for the planned c/section at a [facility] were reviewed with the patient. Her questions were answered to her satisfaction and shedesires to proceed. Consent was signed. I reviewed with her postop instructions and expectations. I have reviewed and updated past medical and surgical history, medications and allergies Samara Woo M.D. documented in this encounterBethesda [facility] Hospital11-29-2022 Miscellaneous Notes* Quick Notes - Samara Woo MD - 09/28/2022 4:53 PM EST RR- VB No. LOF No. CTXS No. Movement: present. Other c/o: cough, productive, no fever or chills, no wheezing or increased SOB Medication list reviewed. Physical Exam See Flow Sheet Abd: soft, nontender, gravid Ext: edema: 1+ A/P 37w1d Estimated Date of Delivery: 10/18/22 NSt reactive plan for delivery this week at [facility]. Consent reviewed and signed after questions answered. H&P done. Needs to do covid lab preop if worsening SOB or fever let us know. On antiboitics per ED for bronchitis. Had CXR. Samara Woo M.D. documented in this encounterBethesda North Hospital11-29-2022 Instructions* Patient Instructions* Marina Aguillon MA - 09/28/2022 2:23 PM EST SEQUENTIAL SCREENINGS [facility] offers sequential screenings for women who are interested in screenings for chromosomal abnormalities and certain defects during a . The sequential screen combinesultrasound and blood tests to determine the risk of chromosomal abnormalities, including Down's Syndrome (Trisomy 21) and Trisomy 18, as well as open neural tube defects including spina bifida. Ultrasound examination is performed between 11 weeks and 13 weeks gestational age. Blood tests are drawn after the ultrasound and again later in the between 15 and 21 weeks gestational age. Please let your physician know if you are interested in this testing. It will require an appointment withour medic technician. This is not an ultrasound performed by a physician in our office during a routine visit. SIGNS AND SYMPTOMS OF LABOR 1. Contractions every 10 minutes or more often 2. Clear, pink, or brownish fluid (water) leaking from vagina 3. Feeling that baby is pushing down, pressure 4. Low, dull backache 5. Cramps that feel like a period 6. Cramps with or without diarrhea If you notice any of the above symptoms, contact our office at [phone] and ask to speak with anurse. After hours, you can call doctors registry at [phone] OR call [facility] at [phone] ask to have the doctor software applications architect paged. If you consider this an emergency, dial 9-1-8 or go to your nearest emergency department. NEED HELP? Are you dealing with a violent or abusive relationship? Are you a victim of rape or sexual assult? Call [facility] ([place]) 24 hour Crisis Hotline: 792.382.3469 or 519-069-9816. MANUAL Your Guide to a Healthy manual is now on-line. Visit [email or web address] to download your free copy documented in this encounterBethesda North Hospital11-25-2022 Miscellaneous Notes* Telephone Encounter - Allie Berger RN - 09/24/2022 10:[address] Arevalo did send me a staff message informing me she was able to schedule patient for CS on Oct 01 at [facility] at 1130. Will be with Dr. Capellan (or laborist per their preference). I did call the patient and told her to expect a phone call from [facility] with more directions.If she has any issues prior to Oct 01 she is to go to [facility] because Dr Arevalo is on service if needs to deliver earlier FYI * Telephone Encounter - Allie Berger RN - 09/24/2022 9:[address] Woo received a call from [facility] stating that patient would be better served delivering at a tertiary care center for her C Section scheduled 09/30. I have sent a staff message to Dr Arevalo, Dr Garner, and Brianne Mosley RN asking for assistance in getting patient rescheduled. I have also called the patient to inform her of this and told her we may not hear back on a rescheduled date until next week, due to the holiday. documented in this encounterBethesda North Hospital11-22-2022 Miscellaneous Notes* Quick Notes - Macario Garner MD - 09/21/2022 11:04 AM EST Reports feeling well overall today. Pulmonary status overall stable on supplemental O2 by NC (~3L, stable from prior visits). Reports some dyspnea and palpitations with increased activity, stairs butstill able to complete all ADLs. Denies chest pain, pleurisy, orthopnea or any sx at rest. Reports normal FM and denies VB, LOF, contractions, abdominal pain or any sx Pre-E. ROS otherwise negative. BP 110/74 Pulse 118 Wt (!) 327 lb 9.6 oz (148.6 kg) LMP 01/17/2022 (Within Weeks) SpO2 96% BMI 46.67 kg/m General: Alert, oriented x 3, NAD. HEENT: Normocephalic, atraumatic, mucous membranes moist, sclerae anicteric. CV: Tachycardia (110s), normal S1S2 without murmur/gallops. Pulmonary: CTAB without wheezes/rales. Abdominal: Soft/obese, non-tender, non-distended without rebound or guarding. Uterus non-tender. Extremities: Non-tender, no erythema, symmetric trace to 1+ edema. Psych: normal mood and affect, at baseline OB: US today with AGA growth and BPP 06/07 (see report for details) Labs/data since last visit - reviewed in EMR ECHO 09/07/22 - CONCLUSIONS: - Technically difficult exam due to body habitus. - Exam indication: Shortness of Breath - The left ventricle is normal in size. Left ventricular systolic function is normal. EF = 54 5% (2D 4-ch.) Indeterminate left ventricular diastolic dysfunction. - The right ventricle is normal in size. Right ventricular systolic function is normal. - There are no significant valvular abnormalities. - Patient was tachycardic throughout entire exam. - The patient has not had a prior CC echocardiographic exam for comparison. Impression/Plan: Return OB visit at 36w1d with the following issues addressed today: COVID19 with history of tracheostomy; long COVID; supplemental O2 requirement Cardiopulmonary status remains stable on supplemental O2 by NC (~3 L). ECHO reassuring with normal biventricular size/systolic function and no e/o structural cardiac disease. Has not completed sleep study and reviewed recommendation to assess for BETO. Discussed delivery planning with patient and with Dr. Woo. The patient is planning for primary, pre-labor scheduled CD. Reviewed risks/benefitsof CD versus trial of labor in her current/future pregnancies (including surgical risks of CD and risk of PAS in future pregnancies) - patient reaffirmed her decision for primary CD and all questions were addressed. Dr. Woo spoke with anesthesiology at [facility] and the obstetric/anesthesia care teams are comfortable with delivery locally at [place] with regional anesthesia. The potential to require transfer to a tertiary center ([facility]) was discussed. Regarding delivery timing, discussed with patient that given her multiple underlying comorbidities and -associatedrisks, delivery at 37-38 weeks is recommended, which will also facilitate coordination of care/delivery at a time when a clinical team comfortable caring for her is available. Recommendations discussed with Dr. Woo today. Obesity in BP stable/normal. Continue ASA prophylaxis. Pre-E sx/precautions were reviewed. History of DVT (deep vein thrombosis) Reviewed recommendation for LMWH prophylaxis postoperatively given the plan for primary CD. VTE precautions reviewed. History of depression Mood stable on effexor. Mood precautions reviewed. OB precautions, HTN/Pre-E precautions, and FM expectations/kick counts reviewed. RTC weekly until delivery (BPP/surveillance and office visits with primary OB). All questions answered. Ms. Mejía expressed understanding and agreement with the plan of care. Macario Garner MD I spent a total of 30 minutes on the date of the service which included preparing to see the patient, [id number] patient care, completing clinical documentation, obtaining and/or reviewing separately obtained history, performing a medically appropriate examination, counseling and educating the pat ient/family/caregiver, ordering medications, tests, or procedures, communicating results to the patient/family/caregiver, and care coordination (not separately reported). documented in this encounterBethesda North Hospital11-22-2022 Miscellaneous Notes* Quick Notes - Samara Woo MD - 09/21/2022 10:54 AM EST RR- VB No. LOF No. CTXS No. Movement: present. Other c/o: denies BAIRES or visual change. No new CP or SOB. Some edema. Medication list reviewed. Physical Exam See Flow Sheet Abd: soft, nontender, gravid Ext: edema: 2+, 2+ DTRs, no clonus A/P 36w1d Estimated Date of Delivery: 10/18/22 High risk nulliparous patient. Post COVID respiratory issues. Baseline tachycardia. History of DVT when she had COVID. Plans primary section due to decreased exercise tolerance and LGA fetusshe would not be a good candidate for an assisted vaginal delivery. Risk benefits and alternatives to primary section were discussed with the patient, her questions were answered to her satisfaction she desires to proceed. In addition after counseling with maternal- medicine today, itis reasonable to proceed with delivery at term. We discussed risk benefits and alternatives to thisincluding increased risk of NICU stay. We also reviewed that if we could not get regional anesthetic adequate at our hospital we would recommend transferring her to tertiary care for delivery. Patient is understanding of that. Patient has been offered delivery at tertiary care but prefers to schedule locally. I have discussed this with anesthesia and they are comfortable with this if we can proceed with regional anesthetic. Patient will need DVT prophylaxis. Samara Woo M.D. documented in this encounterBethesda North Hospital11-22-2022 History and physical note * Samara Woo MD - 09/21/2022 10:20 AM EST Pre-Op History and Physical HPI: The patient is a 22 year old female presenting for pre-operative visit. She is scheduled for , for LGA fetus, decreased exercise tolerance, morbid obesity, and decreased exercise tolerance due to long COVID on 09/25/22. Procedure discussed along with risks, benefits and complications. Other alternatives discussed for management. Consent form signed? Yes. PAST MEDICAL HISTORY Diagnosis Date Anemia Asthma C. difficile diarrhea COVID-19 08/03/2021 on ventilator 40 days Depression DVT (deep venous thrombosis) (HCC) right knee-during Covid hospitalization Eczema Scarring of lung Covid related Tachycardia, unspecified post covid PAST SURGICAL HISTORY Procedure Laterality Date CHEST TUBES-SPECIFY covid treatment PAST SURGICAL HISTORY OF wisdom teeth TRACHEOSTOMY PLANNED SEPARATE PROCEDURE during Covid ventilator Current Outpatient Medications Medication Sig Dispense Refill diphenhydrAMINE (BENADRYL) 25 mg tablet Take 25 mg by mouth every 6 hours as needed. OXYGEN, HOME THERAPY, Inhale as instructed as directed. venlafaxine ER (EFFEXOR XR) 37.5 mg 24 hr capsule Take 5 capsules by mouth once daily. (Patient taking differently: Take 37.5 mg by mouth once daily.) aspirin 81 mg cap Take 81 mg by mouth once daily. PNV no.95/ferrous fum/folic ac ( ORAL) Take by mouth. metoprolol tartrate, short acting, (LOPRESSOR) 25 mg tablet Take 25 mg by mouth twice daily. venlafaxine HCl (EFFEXOR ORAL) Take 150 mg by mouth once daily. BIOTIN ORAL Take by mouth. ALBUTEROL INHALATION Inhale as instructed. Current Facility-Administered Medications Medication Dose Route Frequency Provider Last Rate Last Admin perflutren lipid microspheres 1.3 mL in NaCl (PF) 0.9% 10 mL injection (DEFINITY) INTRAVENOUS DIRECTED EMILY Moreau MD sodium chloride 0.9 % (flush) 10 mL (BD POSIFLUSH) 10 mL INTRAVENOUS DIRECTED EMILY Moreau MD perflutren lipid microspheres 1.3 mL in NaCl (PF) 0.9% 10 mL injection (DEFINITY) INTRAVENOUS DIRECTED EMILY Arevalo MD sodium chloride 0.9 % (flush) 10 mL (BD POSIFLUSH) 10 mL INTRAVENOUS DIRECTED EMILY Arevalo MD ALLERGIES: Alcohol PERSONAL HISTORY: Social History Tobacco Use Smoking status: Never Smokeless tobacco: Never Vaping Use Vaping Use: Never used Substance Use Topics Alcohol use: Not Currently Drug use: Never FAMILY HISTORY: FAMILY HISTORY Problem Relation Age of Onset Diabetes Mother Hypertension Father No Known Problems Sister No Known Problems Brother No Known Problems Brother Leukemia Maternal Grandmother Heart Maternal Grandmother Suicide / Suicidal Behaviors Maternal Grandfather No Known Problems Paternal Grandmother No Known Problems Paternal Grandfather REVIEW OF SYMPTOMS: GENERAL: denies fevers or chills ENDOCRINOLOGY: has not been on steroids Cardiology : denies palpitations or chest pain Respiratory: denies worsening SOB or cough Hematology: denies history of prolonged bleeding or easy bruising or VTE Allergy: Denies history of personal or family history of allergy to anesthesia PHYSICAL EXAMINATION: VITALS: Blood pressure 110/74, pulse (!) 153, weight (!) 327 lb (148.3 kg), last menstrual period 01/17/2022. GENERAL: The patient is well nourished, well hydrated in no acute distress. , The patient is oriented to time, place, and person. NECK: Supple. No lynphadenopathy, normal thyroid, no thyromegaly. LUNGS: Sounds somewhat diminished and difficult to hear due to patient's habitus. No crackles or rales noted HEART: Regular rate and rhythm noted. Abdomen: Soft, nontender nondistended, large pannus IMPRESSION: Estimated Date of Delivery: 10/18/22 1 para 0 with morbid obesity, decreased exercise tolerance due to long COVID, LGA fetus for primary section. Delivering before 39 weeks at recommendation of maternal- medicine because patient is so high risk. PLAN: The risks/benefits/alternatives and personal involved for the planned c- sectiun were reviewedwith the patient. Her questions were answered to her satisfaction and she desires to proceed. Consent was signed. I reviewed with her postop instructions and expectations. She is not interested in elective sterilization I have reviewed and updated past medical and surgical history, medications and allergies Samara Woo M.D. documented in this encounterBethesda North Hospital11-22-2022 Instructions* Patient Instructions* Shanda Fernández Connor - 09/21/2022 9:18 AM EST SEQUENTIAL SCREENINGS [facility] offers sequential screenings for women who are interested in screenings for chromosomal abnormalities and certain defects during a . The sequential screen combinesultrasound and blood tests to determine the risk of chromosomal abnormalities, including Down's Syndrome (Trisomy 21) and Trisomy 18, as well as open neural tube defects including spina bifida. Ultrasound examination is performed between 11 weeks and 13 weeks gestational age. Blood tests are drawn after the ultrasound and again later in the between 15 and 21 weeks gestational age. Please let your physician know if you are interested in this testing. It will require an appointment withour medic technician. This is not an ultrasound performed by a physician in our office during a routine visit. SIGNS AND SYMPTOMS OF LABOR 1. Contractions every 10 minutes or more often 2. Clear, pink, or brownish fluid (water) leaking from vagina 3. Feeling that baby is pushing down, pressure 4. Low, dull backache 5. Cramps that feel like a period 6. Cramps with or without diarrhea If you notice any of the above symptoms, contact our office at [phone] and ask to speak with anurse. After hours, you can call doctors registry at [phone] OR call [facility] at [phone] ask to have the doctor software applications architect paged. If you consider this an emergency, dial or go to your nearest emergency department. NEED HELP? Are you dealing with a violent or abusive relationship? Are you a victim of rape or sexual assult? Call [facility] ([facility] 24 hour Crisis Hotline: 820.498.8062 or 818-480-9997. MANUAL Your Guide to a Healthy manual is now on-line. Visit [email or web address] to download your free copy documented in this encounterBethesda North Hospital11-15-2022 History of Present illness Narrative* Samara Woo MD - 09/14/2022 11:21 AM EST NST SUMMARY PROVIDER ASSESSMENT AND INTERPRETATION Aleyda MEJÍA is a 22 year old female, , who is at 35w1d with an KOFFI of 10/18/2022, by Ultrasound dating method. Indications for NST: Obesity Baseline: 145 Variability: Moderate Accelerations: Present 15 X 15 Decelerations: None Contractions: TOCO: None Interpretation: Category I and Reactive SIGNATURE: Samara Woo MD documented in this encounterBethesda North Hospital11-15-2022 Miscellaneous Notes* Quick Notes - Samara Woo MD - 09/14/2022 11:19 AM EST RR- VB No. LOF No. CTXS No. Movement: present. Other c/o: some edema. Intermittent Mild BAIRES Medication list reviewed. Physical Exam See Flow Sheet Abd: soft, nontender, gravid Ext: edema: 1+, symetrical: Yes, DTRS: 2+, clonus: Absent A/P 35w1d Estimated Date of Delivery: 10/18/22 LGA fetus w/ plan for primary c/s due to morbid obesity and other medical comorbidities. Cardiac echo reviewed O2 requirement, post covid lung changes, being managed by pulmonology F/u 1 week or prn kick counts US/BPP next visit. NSt reactive today. Samara Woo M.D. documented in this encounterBethesda North Hospital11-15-2022 Instructions* Patient Instructions* Shanda Fernández Ma - 09/14/2022 10:26 AM EST SEQUENTIAL SCREENINGS [facility] offers sequential screenings for women who are interested in screenings for chromosomal abnormalities and certain defects during a . The sequential screen combinesultrasound and blood tests to determine the risk of chromosomal abnormalities, including Down's Syndrome (Trisomy 21) and Trisomy 18, as well as open neural tube defects including spina bifida. Ultrasound examination is performed between 11 weeks and 13 weeks gestational age. Blood tests are drawn after the ultrasound and again later in the between 15 and 21 weeks gestational age. Please let your physician know if you are interested in this testing. It will require an appointment withour medic technician. This is not an ultrasound performed by a physician in our office during a routine visit. SIGNS AND SYMPTOMS OF LABOR 1. Contractions every 10 minutes or more often 2. Clear, pink, or brownish fluid (water) leaking from vagina 3. Feeling that baby is pushing down, pressure 4. Low, dull backache 5. Cramps that feel like a period 6. Cramps with or without diarrhea If you notice any of the above symptoms, contact our office at [phone] and ask to speak with anurse. After hours, you can call doctors registry at [phone] OR call [facility] at [phone] ask to have the doctor software applications architect paged. If you consider this an emergency, dial 4-1-8 or go to your nearest emergency department. NEED HELP? Are you dealing with a violent or abusive relationship? Are you a victim of rape or sexual assult? Call [facility] ([place]) 24 hour Crisis Hotline: 594.997.9650 or 340-906-1179. MANUAL Your Guide to a Healthy manual is now on-line. Visit [email or web address] to download your free copy documented in this encounterBethesda North Hospital11-01-2022 History of Present illness Narrative* Praneeth Moreau MD - 08/31/2022 11:35 AM EDT NST SUMMARY PROVIDER ASSESSMENT AND INTERPRETATION Aleyda MEJÍA is a 22 year old female, , who is at 33w1d with an KOFFI of 10/18/2022, by Ultrasound dating method. Indications for NST: Obesity Baseline: 150 Variability: Moderate Accelerations: Present 15 X 15 Decelerations: None Contractions: TOCO: None Interpretation: Reactive SIGNATURE: Praneeth Moreau MD documented in this encounterBethesda North Hospital11-01-2022 Miscellaneous Notes* Quick Notes - Praneeth Moreau MD - 08/31/2022 11:33 AM EDT KJ - NST only. A&P: Obesity - reactive NST Briefly discussed delivery location & she plans to deliver at [facility]. F/u weekly Praneeth Moreau MD documented in this encounterBethesda North Hospital10-25-2022 History of Past illness Narrative* Problem Noted Date Resolved Date care 08/24/2022 10/03/2022 Last Assessment & Plan: Third trimester counseling was provided. Abnormal glucose complicating 07/27/2010/03/2022 Overview: needs 3 hr July 27, 2022 Samara Woo MD Last Assessment & Plan: Patient with negative GDM screening (3hr GTT normal). US today with accelerated growth velocity. Serial assessment of growth planned with next evaluation in ~4 weeks. Obesity in 03/11/2022 10/03/2022 Overview: Current BMI 48. 5/ BMI 39.6. Baby ASA after 12 weeks. Growth US q 4 wks starting at 32 wks. NST starting at 36 wks. SW 03/11/2022atient is obese. We will plan on early hemoglobin A1c.TKRN Last Assessment & Plan: BP stable/normal. Continue ASA prophylaxis. Pre-E sx/precautions were reviewed. Nausea and vomiting during 03/11/2022 06/01/2022 Overview: 03/11/2022atient is complaining of nausea and occasional vomiting in . Dietary considerations discussed . Vitamin B6 recommended. Advised patient to call/come in if she is unable to keep any food or fluids down in a 24-hour period. TKRN Patient request for diagnostic testing 2 06/01/2022 Overview: 2Discussed aneuploidy screening with patient. Patient desires nuchal ultrasound and sequential testing. Patient declines genetic carrier screening testing.Allie Berger RN documented as of this encounter (statuses as of 10/08/2022) [facility] History of Past illness Narrative* Problem Noted Date Resolved Date care 08/24/2022 10/03/2022 Last Assessment & Plan: Third trimester counseling was provided. Abnormal glucose complicating 07/27/20 22 10/03/2022 Overview: needs 3 hr July 27, 2022 Samara Woo MD Last Assessment & Plan: Patient with negative GDM screening (3hr GTT normal). US today with accelerated growth velocity. Serial assessment of growth planned with next evaluation in ~4 weeks. Obesity in 03/11/2022 10/03/2022 Overview: Current BMI 48. 5/ BMI 39.6. Baby ASA after 12 weeks. Growth US q 4 wks starting at 32 wks. NST starting at 36 wks. SW 03/11/2022atient is obese. We will plan on early hemoglobin A1c.TKRN Last Assessment & Plan: BP stable/normal. Continue ASA prophylaxis. Pre-E sx/precautions were reviewed. Nausea and vomiting during 03/11/2022 06/01/2022 Overview: 03/11/2022atient is complaining of nausea and occasional vomiting in . Dietary considerations discussed . Vitamin B6 recommended. Advised patient to call/come in if she is unable to keep any food or fluids down in a 24-hour period. TKRN Patient request for diagnostic testing 2 06/01/2022 Overview: 2Discussed aneuploidy screening with patient. Patient desires nuchal ultrasound and sequential testing. Patient declines genetic carrier screening testing.Allie Berger RN documented as of this encounter (statuses as of 11/08/2022) [facility] Miscellaneous Notes* Quick Notes - Macario Garner MD - 08/24/2022 11:03 AM EDT Patient reports feeling well overall today. Reports that SpO2 is largely in normal range at home and with activity while on supplemental O2 (2L/min, SpO2 range generally 95-97%, occasionally 92-93% with activity). Denies chest pain, palpitations, dyspnea, pleurisy, orthopnea or other cardiopulmonary sx. Recently had Cardiology evaluation and note reviewed. Reports normal FM and denies VB, LOF, contractions, abdominal pain or any sx Pre-E. ROS otherwise negative. BP 134/74 Pulse 113 Wt (!) 312 lb (141.5 kg) LMP 01/17/2022 (Within Weeks) SpO2 94% BMI 44.45 kg/m General: Alert, oriented x 3, NAD. HEENT: Normocephalic, atraumatic, mucous membranes moist, sclerae anicteric. CV: tachycardia (100-110s), regular rhythm, normal S1S2 without murmur/gallops. Pulmonary: CTAB without wheezes/rales. Abdominal: Soft/obese, non-tender, non-distended without rebound or guarding. Uterus non-tender. Extremities: Non-tender, no erythema, trace edema Psych: normal mood and affect. OB: US today - accelerated growth velocity (EFW/AC > 90th percentile); BPP 06/07 - see report for details. Labs/data since last visit - reviewed in EMR Impression/Plan: Return OB visit at 32w1d with the following issues addressed today: Abnormal glucose complicating Patient with negative GDM screening (3hr GTT normal). US today with accelerated growth velocity. Serial assessment of growth planned with next evaluation in ~4 weeks. Obesity in BP stable today. Risk of Pre-E discussed and Pre-E sx/precautions provided. Continue ASA prophylaxis, serial BP/sx monitoring. History of DVT (deep vein thrombosis) On ASA prophylaxis. Currently not on LMWH and discussed that LMWH prophylaxis is recommended with additional risk factor (e.g. CD). VTE precautions reviewed. COVID19 with history of tracheostomy; long COVID; supplemental O2 requirement Patient with overall stable pulmonary status on supplemental O2 (generally ~2 L/min). However she did not require supplemental O2 earlier this . The /maternal risks related to maternal hypoxia were discussed and target SpO2 for reviewed (maintain SpO2 > 95%). Recommend she titrate SpO2 to goal, informed OB/MFM if O2 needs increase, and follow-up with Pulmonary. Recentlyevaluated by Cardiology and note reviewed. Agree with recommendation for her to have a sleep study to assess for underlying BETO. Reviewed with patient that I recommend she have an ECHO to assess her cardiac structure/function and to assist with delivery planning. The physiologic cardiovascular changes related to , delivery, and the immediate period were reviewed and discussed the risks in patients with underlying cardiac disease/dysfunction. Patient stated she would schedule the study. surveillance reassuring today. Given her oxygen requirement, weekly surveillance and serial assessment of growth are recommended. Also recommended influenza vaccination which was declined. The risks of influenza in and in the setting of her chronic pulmonary disease, were discussed including the risk for SMM/mortality. Lastly, we initiated a conversation regarding delivery planning today. Discussed both route and location of delivery. Patient stated she would prefer to delivery locally at [place]. Given her underlying comorbidities, I discussed that delivery at a tertiary center ([facility] vs [facility]) is recommended. OB anesthesia consult is recommended. Lastly, we reviewed route of delivery. The patient stated that she was planning to have a scheduled primary CD. We discussed the risks of primary CD including the surgical risks (bleeding, infection, injury to adjacent organs, transfusion) as well as the implications for future pregnancies (decisions regarding route of delivery/subsequent delivery by RCD, risks of TOLAC, risks related to multiple CDs, risk of placenta accreta spectrum disorder). Discussed that her underlying medical comorbidities are not an indication for primary CD; however, we discussed that givenher baseline pulmonary status she may require an planned operative vaginal delivery as she may not tolerate expulsive efforts. Patient considering these options and reviewed that route of delivery should be continued to be discussed at upcoming visits. History of depression Mood stable on effexor. Continue current therapy, serial assessment of mood. Mood precautions were reviewed. care Third trimester counseling was provided. OB precautions, HTN/Pre-E precautions, pulmonary precautions, and FM expectations/kick counts reviewed. Continue routine OB care with primary OB; follow-up with MFM for office visit in 2 weeks - office visit and growth US in 4 weeks. All questions answered. Ms. Mejía expressed understanding and agreement with the plan of care. Macario Garner MD I spent a total of 45 minutes on the date of the service which included preparing to see the patient, [id number] patient care, completing clinical documentation, obtaining and/or reviewing separately obtained history, performing a medically appropriate examination, counseling and educating the pat ient/family/caregiver, communicating results to the patient/family/caregiver, and care coordination(not separately reported). documented in this encounterBethesda North Hospital10-25-2022 Miscellaneous Notes* Quick Notes - Praneeth Moreau MD - 08/24/2022 10:34 AM EDT KJ - No VB/LOF/ctxs. Reports good FM. A&P: Long COVID - see MFM note from today. Maternal echo ordered. Plan for delivery at tertiary care center. Needs weekly NSTs. Patient is using oxygen. Also on metoprolol for tachycardia. Growth US today - accelerated growth velocity with EFW and AC at/above the 98th percentile Advised on flu vaccine Reviewed PTL & FM precautions Praneeth Moreau MD documented in this encounterBethesda North Hospital10-25-2022 Instructions* Patient Instructions* Tori Luevano Ma - 08/24/2022 9:51 AM EDT SEQUENTIAL SCREENINGS [facility] offers sequential screenings for women who are interested in screenings for chromosomal abnormalities and certain defects during a . The sequential screen combinesultrasound and blood tests to determine the risk of chromosomal abnormalities, including Down's Syndrome (Trisomy 21) and Trisomy 18, as well as open neural tube defects including spina bifida. Ultrasound examination is performed between 11 weeks and 13 weeks gestational age. Blood tests are drawn after the ultrasound and again later in the between 15 and 21 weeks gestational age. Please let your physician know if you are interested in this testing. It will require an appointment withour medic technician. This is not an ultrasound performed by a physician in our office during a routine visit. SIGNS AND SYMPTOMS OF LABOR 1. Contractions every 10 minutes or more often 2. Clear, pink, or brownish fluid (water) leaking from vagina 3. Feeling that baby is pushing down, pressure 4. Low, dull backache 5. Cramps that feel like a period 6. Cramps with or without diarrhea If you notice any of the above symptoms, contact our office at [phone] and ask to speak with anurse. After hours, you can call doctors registry at [phone] OR call [facility] at [phone] ask to have the doctor software applications architect paged. If you consider this an emergency, dial 9-0-6 or go to your nearest emergency department. NEED HELP? Are you dealing with a violent or abusive relationship? Are you a victim of rape or sexual assult? Call [facility] ([place]) 24 hour Crisis Hotline: 441.921.7147 or 920-278-0841. MANUAL Your Guide to a Healthy manual is now on-line. Visit [email or web address] to download your free copy documented in this encounterBethesda North Hospital09-28-2022 Miscellaneous Notes* Telephone Encounter - Venus Mckinnon RN - 07/28/2022 8:08 AM EDT Lab called. Need a new order for 3 hour GTT. Previous order was incorrect. Please file pending order. Thank you. Venus Mckinnon RN documented in this encounterBethesda North Hospital09-27-2022 Miscellaneous Notes* Quick Notes - Praneeth Moreau MD - 07/27/2022 11:50 AM EDT KJ - No VB/LOF/ctxs. Reports good FM. A&P: Post-COVID tachycardia - continue metoprolol Growth US with BPP today. Repeat US in 4 weeks. 28wk labs & Tdap today Declines LARC Reviewed PTL & FM precautions Praneeth Moreau MD documented in this encounterBethesda North Hospital09-27-2022 History of Present illness Narrative* Tori Luevano Ma - 07/27/2022 9:11 AM EDT Patient identified by name and date of . Aleyda MEJÍA presents today for a vaccination of Tdap. Patient denies an allergy to latex: yes Patient denies a severe (life-threatening) allergy to a previous dose of Tdap, DTP, DTaP, DT or Td vaccine. Yes Patient denies history of epilepsy or neurological problems: Yes Patient is afebrile and denies being moderately or severely ill: Yes Patient denies history of Guillain-[place] Syndrome (a severe paralytic illness): Yes Tdap Adacel injection was given without incident. See immunizations for details of immunizations administered today. VIS sheet provided: Yes Provider Praneeth Moreau MD was present in office at time of injection. documented in this encounterBethesda North Hospital09-27-2022 Instructions* Patient Instructions* Tori Luevano Ma - 07/27/2022 9:07 AM EDT SEQUENTIAL SCREENINGS [facility] offers sequential screenings for women who are interested in screenings for chromosomal abnormalities and certain defects during a . The sequential screen combinesultrasound and blood tests to determine the risk of chromosomal abnormalities, including Down's Syndrome (Trisomy 21) and Trisomy 18, as well as open neural tube defects including spina bifida. Ultrasound examination is performed between 11 weeks and 13 weeks gestational age. Blood tests are drawn after the ultrasound and again later in the between 15 and 21 weeks gestational age. Please let your physician know if you are interested in this testing. It will require an appointment withour medic technician. This is not an ultrasound performed by a physician in our office during a routine visit. SIGNS AND SYMPTOMS OF LABOR 1. Contractions every 10 minutes or more often 2. Clear, pink, or brownish fluid (water) leaking from vagina 3. Feeling that baby is pushing down, pressure 4. Low, dull backache 5. Cramps that feel like a period 6. Cramps with or without diarrhea If you notice any of the above symptoms, contact our office at [phone] and ask to speak with anurse. After hours, you can call doctors registry at [phone] OR call [facility] at [phone] ask to have the doctor software applications architect paged. If you consider this an emergency, dial 8-8-9 or go to your nearest emergency department. NEED HELP? Are you dealing with a violent or abusive relationship? Are you a victim of rape or sexual assult? Call [facility] ([place]) 24 hour Crisis Hotline: 351.629.9634 or 757-169-3821. MANUAL Your Guide to a Healthy manual is now on-line. Visit [email or web address] to download your free copy documented in this encounterBethesda North Hospital08-30-2022 Miscellaneous Notes* Quick Notes - Samara Woo MD - 06/29/2022 8:39 AM EDT RR- doing well overall. Some FM. No VB/LOF. 28 week labs and tdap next visit. Growth CHRISTOPHER next visit.Samara Woo MD documented in this encounterBethesda North Hospital08-30-2022 Instructions* Patient Instructions* Shanda Fernández Ma - 06/29/2022 8:27 AM EDT SEQUENTIAL SCREENINGS [facility] offers sequential screenings for women who are interested in screenings for chromosomal abnormalities and certain defects during a . The sequential screen combinesultrasound and blood tests to determine the risk of chromosomal abnormalities, including Down's Syndrome (Trisomy 21) and Trisomy 18, as well as open neural tube defects including spina bifida. Ultrasound examination is performed between 11 weeks and 13 weeks gestational age. Blood tests are drawn after the ultrasound and again later in the between 15 and 21 weeks gestational age. Please let your physician know if you are interested in this testing. It will require an appointment withour medic technician. This is not an ultrasound performed by a physician in our office during a routine visit. SIGNS AND SYMPTOMS OF LABOR 1. Contractions every 10 minutes or more often 2. Clear, pink, or brownish fluid (water) leaking from vagina 3. Feeling that baby is pushing down, pressure 4. Low, dull backache 5. Cramps that feel like a period 6. Cramps with or without diarrhea If you notice any of the above symptoms, contact our office at [phone] and ask to speak with anurse. After hours, you can call doctors registry at [phone] OR call [facility] at [phone] ask to have the doctor software applications architect paged. If you consider this an emergency, dial 9-0- or go to your nearest emergency department. NEED HELP? Are you dealing with a violent or abusive relationship? Are you a victim of rape or sexual assult? Call [facility] ([place]) 24 hour Crisis Hotline: 749.291.2956 or 610-219-1163. MANUAL Your Guide to a Healthy manual is now on-line. Visit [email or web address] to download your free copy documented in this encounterBethesda North Hospital08-02-2022 Miscellaneous Notes* Quick Notes - Samara Woo MD - 06/01/2022 10:59 AM EDT RR- No definitive FM yet. US today w/ MFM consult. Continues w/ metoprolol. Nausea improved. TakingPNV and ASA daily. F/u in 4 weeks or prn. Samara Woo MD documented in this encounterBethesda North Hospital08-02-2022 History of Present illness Narrative* Indira Arevalo MD - 06/01/2022 9:33 AM EDT OBSTETRICS MATERNAL MEDICINE CONSULT SERVICE DATE: June 01, 2022 SERVICE TIME: 0900 REQUESTING PROVIDER: Dr Abdalla Subjective HISTORY OF THE PRESENT ILLNESS: Aleyda is a 22 year old female, , who is at 20w1d with an KOFFI of 10/18/2022, by Ultrasound datingmethod. She presents today for anatomy ultrasound and consultation to discuss her history of complicated COVID pneumonia resulting in long-term hospitalization, complicated by LE DVT, pulmonary fibrosis and residual symptoms of tachycardia and dyspnea on exertion. She was initially admitted 08/03/21. Her hospitalization required long-term intubation, tracheostomy, chest tube placement and complicated by recurrent pneumothorax, requiring stay in SNF and readmission in 09/2021. The overall course lasted from early July 2021 through discharge in mid-October 2021. Her rehabilitation at the conclusion of her prolonged stay was at [facility], and those records are not available to review today. I have [facility] and obtained history from the patient and her partner. Since her discharge from [facility] in October, she has followed with it integration architect Dr. Ric Lee. She reports having chest CT surveillance which was overall reassuring. She self discontinued supplementary oxygen in December/January this year, reports was unable to make appointment or have pulmonary functiontesting. She does monitor her O2 saturation at home and has been consistently above 95% on RA during this . She still has continued CARTY however independent in ADLs including climbing stairs,grocery shopping and housecleaning. She has an as- needed albuterol inhaler at home that she has notused since becoming . She has persistent tachycardia up to 120s-130s at home since her hospitalization. She takes Metroprolol, has never had evaluation from safety inspector that she knows of, denies sensation of palpitationsbut feels heart racing. She had echocardiogram during long-term hospitalization which showed no structural anomalies but unable to assess PASP (did have dilated main PA on most recent CT available to review from Oct 2021). Currently she appears comfortable on room air with SpO2 96% and resting HR 106. HISTORY REVIEW PAST MEDICAL HISTORY Diagnosis Date Anemia Asthma C. difficile diarrhea COVID-19 08/03/2021 on ventilator 40 days Depression DVT (deep venous thrombosis) (HCC) right knee-during Covid hospitalization Eczema Scarring of lung Covid related Tachycardia, unspecified post covid PAST SURGICAL HISTORY Procedure Laterality Date CHEST TUBES-SPECIFY covid treatment PAST SURGICAL HISTORY OF wisdom teeth TRACHEOSTOMY PLANNED SEPARATE PROCEDURE during Covid ventilator FAMILY HISTORY Problem Relation Age of Onset Diabetes Mother Hypertension Father No Known Problems Sister No Known Problems Brother No Known Problems Brother Leukemia Maternal Grandmother Heart Maternal Grandmother Suicide / Suicidal Behaviors Maternal Grandfather No Known Problems Paternal Grandmother No Known Problems Paternal Grandfather Social History Tobacco Use Smoking status: Never Smoker Smokeless tobacco: Never Used Vaping Use Vaping Use: Never used Substance Use Topics Alcohol use: Not Currently Drug use: Never Obstetric History T0 L0 SAB0 IAB0 Ectopic0 Multiple0 Live Births0 Name of Baby 1: Not recorded Date: Not recorded GA: Not recorded Delivery: Not recorded Apgar1: Not recorded Apgar5: Not recorded Living: Not recorded Active Non-Hospital Problems Diagnosis Date Noted History of COVID-19 03/11/2022 Overview Note: 03/15/22 MFM consultation at time of ultrasound. 03/14/2022atient states she was diagnosed with COVID in July for 2020. She states she was in the hospital for about 3-1/[address] [facility] in [place]. She was on a ventilator for 40 days.Still has issues with a cough and tachycardia. She is currently on metoprolol for tachycardia prescribed by . I have asked her to call the doctor's office and let her know that she is to discuss any medication questions. She states that she developed a blood clot under her right knee due to COVID and was treated at [facility]. [facility] TKRN Assessment & Plan Note: Assessment: Long hospital course [id number] including 40 days intubated/requiring tracheostomy Persistent tachycardia and SOB Unsure if last PFT Had echocardiogram during hospitalization that did not measure PASP Chest CT (10/2021) recommended surveillance follow up due to rounded masslike lesion in the right lower lobe measures 4.6 x 3.1 cm (series 4 image 173) previously 4.6 x 3.2 cm. PLAN: Screening echocardiogram may be beneficial for delivery planning given uncertain significance of pulmonary trunk dilation on last chest CT Pulmonology referral and/or PFT can be performed if worsening CARTY or pulmonary symptoms Will need surveillance/follow up for likely incidental chest mass findings as above History of tachycardia 03/11/2022 Overview Note: 03/11/2022he is currently on metoprolol for COVID related tachycardia prescribed by . I have asked her to call the doctor's office and let her know that she is to discuss any medication questions. TKRN Assessment & Plan Note: Assessment: Currently taking metoprolol prescribed by Dr. Mendoza PLAN: Continue, plan for serial growth due to BMI Tachycardia physiologically worsens 3rd tri, if recurrent palpitations would recommend Zio patch History of DVT (deep vein thrombosis) 03/11/2022 Overview Note: 03/15/22 No indication for lovenox in . Will consider lovenox for 6 weeks . SW 03/11/2022 She states that she developed a blood clot under her right knee due to COVID and was treated at the [facility]. States she has been off Eliquis since December. 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 Baby ASA after 12 weeks. Growth US q 4 wks starting at 32 wks. NST starting at 36wks. 03/11/2022atient is obese. We will plan on early hemoglobin A1c.TKRN Assessment & Plan Note: Assessment: Recommended weight gain around 15lbs PLAN: Growth US q 4 wks starting at 32 wks NST starting at 36 wks. History of depression 03/11/2022 Overview Note: 03/15/22 Discussed r/b/a of Effexor at time of NOB. Encouraged establishing with a counselor. 03/11/2022t has a history of depression diagnosed September 2020 but she feels that she had unreported depression since childhood. She is currently taking Effexor prescribed by . Feels she is doing well on the medication. Has not attended any counseling in the past. Discussed increased risks of depression during and and importance of reporting the development or worsening of symptoms should they occur.Pt denies ever having any suicidal thoughts or tendencies or thoughts of hurting others.TKRN Assessment & Plan Note: Assessment: Stable on Effexor PLAN: Continue medical therapy and PCP follow up Counseling services as needed Nausea and vomiting during 03/11/2022 Overview Note: 03/11/2022atient is complaining of nausea and occasional vomiting in . Dietary considerations discussed . Vitamin B6 recommended. Advised patient to call/come in if she is unable to keep any food or fluids down in a 24-hour period. TKRN Family history of congenital heart defect 03/11/2022 Overview Note: 03/11/2022 Father of the baby states his uncle born with then extra valve in heart. TKRN Patient request for diagnostic testing 03/11/2022 Overview Note: 2Discussed aneuploidy screening with patient. Patient desires nuchal ultrasound and sequential testing. Patient declines genetic carrier screening testing.Allie Berger RN ALLERGIES Allergen Reactions Alcohol Rash When she drinks alcohol. No issues with Isopropyl alcohol on skin PRIOR TO ADMISSION MEDICATIONS: Current Outpatient Medications Medication Instructions ALBUTEROL INHALATION INHALATION aspirin 81 mg cap ORAL BIOTIN ORAL ORAL metoprolol tartrate (short acting) (LOPRESSOR) 25 mg, ORAL, 2 TIMES DAILY PNV no.95/ferrous fum/folic ac ( ORAL) ORAL venlafaxine HCl (EFFEXOR ORAL) ORAL REVIEW OF SYSTEMS: The remainder of the review of systems is negative. Objective LAST VITALS: BP 118/70 Pulse 106 Wt 290 lb 9.6 oz (131.8 kg) LMP 01/17/2022 (Within Weeks) SpO2 96% BMI 41.40 kg/m PHYSICAL EXAM: General: WD, WN HEENT: NC/AT, sclera white, pupils equal Lungs: normal respiratory effort Heart: HR regular, 100-110s Abdomen: soft, nontender during US exam Extremities: No edema, erythema or cords FHT: Present on US LABS Diagnostic tests reviewed for today's visit: Most recent labs and imaging results. Sequential screen: negative HgbA1c: 4.8% Cr (10/2021): 0.52 mg/dL Impression/Recommendations 22 year old EGA:20w1d here for consultation due to history of complicated COVID infection resulting in long hospitalization, pulmonary fibrosis, DVT, and residual tachycardia and CARTY. She is doing overall quite well today with reassuring SpO2 and no recent use of bronchodilator. She has persistent tachycardia of unknown etiology, does not believe she has been evaluated by safety inspector. 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 History of tachycardia Assessment: Currently taking metoprolol prescribed by Dr. Mendoza PLAN: Continue metoprolol, plan for serial growth due to BMI Given continuing CARTY with dilated PA on CT recommend echocardiogram Recommend cardiology evaluation due to persistent tachycardia Discussed that tachycardia physiologically increases 3rd tri, if recurrent palpitations would recommend Zio patch History of COVID-19 Assessment: Long hospital course [id number] including 40 days intubated/requiring tracheostomy Some persistent tachycardia and SOB however SpO2 at goal for with normal ADLs, and fibrosis appears to be improving from a clinical standpoint (most recent imaging not available to review) Unsure of last PFT Had echocardiogram during hospitalization that did not measure PASP Chest CT (10/2021) recommended surveillance follow up due to rounded masslike lesion in the right lower lobe measures 4.6 x 3.1 cm (series 4 image 173) previously 4.6 x 3.2 cm, she reports recent pre- CT reassuring PLAN: Screening echocardiogram may be beneficial for delivery planning given uncertain significance of pulmonary trunk dilation on last chest CT Continue pulmonology follow up, given stability with SpO2 at goal (>95% in ) unclear ifPFT would be helpful particularly while , perhaps if symptoms worsen Will need surveillance/follow up for likely incidental chest mass findings as above, following withpulmonologist at [facility] Discussed risk of cardiopulmonary deterioration in particularly if preeclampsia occurs (her risks include obesity, parity), and potential for hospitalization or delivery. If she remains at goal SpO2 without complications then delivery at [facility] seems reasonable if preferred by patient, with mode of delivery based on obstetric indication. Discussed assisted second stage if respiratory effort a concern in second stage. Consultation requested by Dr. Abdalla for an opinion regarding complicated COVID infection history and other complications including obseity, depression. My final recommendations will be communicated back to the requesting physician by way of shared Medical record or letter to requesting physician via US mail. I spent 60 minutes in the visit, with more than 50% of the total gaur-vj-koxp time of the visit in counseling / coordination of care. Indira Arevalo MD June 01, 2022 9:40 AM documented in this encounterBethesda North Hospital07-15-2022 Miscellaneous Notes* Telephone Encounter - Stephanie Troy RN - 05/14/2022 2:12 PM EDT Order signed and faxed. Stephanie Troy RN * Telephone Encounter - Stephanie Troy RN - 05/10/2022 8:30 AM EDT Request received from [facility] breast pump. Order to Dr. Abdalla to sign. Will fax once signed. Stephanie Troy RN documented in this encounterBethesda North Hospital07-05-2022 Miscellaneous Notes* Quick Notes - Ying Tatum MD - 05/04/2022 9:21 AM EDT DM- Pt doing well today. Denies Vaginal Bleeding, Leaking fluid, or cramping. Intermittent Nausea. Continue lopressor. Anatomy us ordered. Second trimester screening today. RTO 4 wks. Ying Bosch MD documented in this encounterBethesda North Hospital07-05-2022 Instructions* Patient Instructions* Marina Aguillon MA - 05/04/2022 8:59 AM EDT SEQUENTIAL SCREENINGS [facility] offers sequential screenings for women who are interested in screenings for chromosomal abnormalities and certain defects during a . The sequential screen combinesultrasound and blood tests to determine the risk of chromosomal abnormalities, including Down's Syndrome (Trisomy 21) and Trisomy 18, as well as open neural tube defects including spina bifida. Ultrasound examination is performed between 11 weeks and 13 weeks gestational age. Blood tests are drawn after the ultrasound and again later in the between 15 and 21 weeks gestational age. Please let your physician know if you are interested in this testing. It will require an appointment withour medic technician. This is not an ultrasound performed by a physician in our office during a routine visit. SIGNS AND SYMPTOMS OF LABOR 1. Contractions every 10 minutes or more often 2. Clear, pink, or brownish fluid (water) leaking from vagina 3. Feeling that baby is pushing down, pressure 4. Low, dull backache 5. Cramps that feel like a period 6. Cramps with or without diarrhea If you notice any of the above symptoms, contact our office at [phone] and ask to speak with anurse. After hours, you can call doctors registry at [phone] OR call [facility] at [phone] ask to have the doctor software applications architect paged. If you consider this an emergency, dial 9-1-8 or go to your nearest emergency department. NEED HELP? Are you dealing with a violent or abusive relationship? Are you a victim of rape or sexual assult? Call [facility] ([place]) 24 hour Crisis Hotline: 272.807.4961 or 646-702-8541. MANUAL Your Guide to a Healthy manual is now on-line. Visit [email or web address] to download your free copy documented in this encounterBet[facility]06-[facility]22 Miscellaneous Notes* Telephone Encounter - Kyleigh Guzman MA - 04/09/2022 3:54 PM EDT Patient called and identified by name and date of . Aleyda MEJÍA was informed of negative Sequential screen first trimester. Aleyda MEJÍA was informed of her risk assessment for Trisomy 21 and 18.Based on these results Dr. Arevalo s recommendation is for patient to follow-up with Sequential second trimester screening (05/04/22-05/18/22) and level II anatomy scan after 18wks. Patient verbalized understanding . Kyleigh Guzman MA documented in this encounterBethesda North Hospital06-07-2022 Miscellaneous Notes* Quick Notes - Ying Tatum MD - 04/06/2022 10:42 AM EDT DM- Pt doing well today. Denies Vaginal Bleeding, Leaking fluid, or cramping. Stopped labetalol andwent back to metoprolol due for tachycardia. Pt reports labetalol was making her more SOB. NT today, new ob labs today. Will start baby ASA reviewed with patient. RTO 4 wks. Order anatomy us next visit. Ying Bosch MD documented in this encounterBethesda North Hospital06-07-2022 History of Present illness Narrative* Stephanie Troy RN - 04/06/2022 10:23 AM EDT Patient here for First Trimester Screening. See ultrasound report for details. Options for genetic screening and diagnosis discussed with the patient. Patient opts for first trimester screening and the sequential screening protocol. Limitations of screening tests discussed withthe patient. Ying Bosch MD documented in this encounterBethesda North Hospital06-07-2022 Instructions* Patient Instructions* Evelyn Saunders Ma - 04/06/2022 10:23 AM EDT SEQUENTIAL SCREENINGS [facility] offers sequential screenings for women who are interested in screenings for chromosomal abnormalities and certain defects during a . The sequential screen combinesultrasound and blood tests to determine the risk of chromosomal abnormalities, including Down's Syndrome (Trisomy 21) and Trisomy 18, as well as open neural tube defects including spina bifida. Ultrasound examination is performed between 11 weeks and 13 weeks gestational age. Blood tests are drawn after the ultrasound and again later in the between 15 and 21 weeks gestational age. Please let your physician know if you are interested in this testing. It will require an appointment withour medic technician. This is not an ultrasound performed by a physician in our office during a routine visit. SIGNS AND SYMPTOMS OF LABOR 1. Contractions every 10 minutes or more often 2. Clear, pink, or brownish fluid (water) leaking from vagina 3. Feeling that baby is pushing down, pressure 4. Low, dull backache 5. Cramps that feel like a period 6. Cramps with or without diarrhea If you notice any of the above symptoms, contact our office at [phone] and ask to speak with anurse. After hours, you can call doctors registry at [phone] OR call [facility] at [phone] ask to have the doctor software applications architect paged. If you consider this an emergency, dial 4-5-0 or go to your nearest emergency department. NEED HELP? Are you dealing with a violent or abusive relationship? Are you a victim of rape or sexual assult? Call [facility] ([facility] 24 hour Crisis Hotline: 920.297.2194 or 285-720-5014. MANUAL Your Guide to a Healthy manual is now on-line. Visit [email or web address] to download your free copy SEQUENTIAL TESTING PROCESS Sequential Screen First Trimester Today you are currently: 12w1d weeks 04/06/2022: Ultrasound and blood test. Sequential Screen Second Trimester (16-17 Weeks Gestation) When you are called with your results, the nurse will give the optimal draw dates for the Sequential screen second trimester. Blood testing can be done at any [facility] lab. Please report to the any breast puller office net front end developer for the Sequential Part 2 requisition and order before reporting to the lab. Your weight will need to be documented for testing. Please note: -No appointment is need for your second blood draw. -Office hours are 8 am to 4:30 pm. -Please have testing done prior to 12 noon on Tuesday's -Once the sequential testing is started, in the first trimester the only follow- up will be for the sequential screen second trimester. Please don't have a Quad screen ordered by another provider. If you or your Provider have any questions please call your maternal medicine office, for east side please call [phone] or for the West side call [phone] and ask for the the nurse. Thank you. documented in this encounterBethesda North Hospital05-18-2022 Miscellaneous Notes* Telephone Encounter - Shade Bowling RN - 03/17/2022 1:14 PM EDT PRAF completed 03-17-22. Shade Bowling RN documented in this encounterBethesda North Hospital05-16-2022 History of Present illness Narrative* Christy Abdalla MD - 03/15/2022 11:13 AM EDT INITIAL OB ASSESSMENT OB Provider: Christy Abdalla DO HPI: Aleyda Ann is a 22 year old female here to establish Obstetrical Care. Patient's last menstrual period was 01/17/2022 (within weeks). from OB Dating Form. Cycle length: irregular Complaints: nausea without vomiting was planned. OB History T0 L0 SAB0 IAB0 Ectopic0 Multiple0 Live Births0 Prior : never History of 4th degree laceration: No Patient's Risk Screening for delivery: History of abnormal pap: No Prior treatment for cervical dysplasia: none. History of STDs: None Tobacco use: No Caffeine use: Yes Drug use: No Alcohol use: No Multivitamin with Folic acid: Yes Occupation: home Nondenominational or heritage: No Would refuse blood transfusion if medically necessary: No BMI 39.66 kg/(m^2) Patient BMI over 30? 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 difficile diarrhea COVID-19 08/03/2021 on ventilator 40 days Depression DVT (deep venous thrombosis) (HCC) right knee-during Covid hospitalization Eczema Scarring of lung Covid related Tachycardia, unspecified post covid PAST SURGICAL HISTORY Procedure Laterality Date CHEST TUBES-SPECIFY covid treatment PAST SURGICAL HISTORY OF wisdom teeth TRACHEOSTOMY PLANNED SEPARATE PROCEDURE during Covid ventilator Current Outpatient Medications on File Prior to Visit Medication Sig metoprolol tartrate, short acting, (LOPRESSOR) 25 mg tablet Take 25 mg by mouth twice daily. venlafaxine HCl (EFFEXOR ORAL) Take by mouth. BIOTIN ORAL Take by mouth. pediatric multivitamin no.76 (FLINTSTONES COMPLETE ORAL) Take by mouth. cholecalciferol, vitamin D3, (VITAMIN D3 ORAL) Take by mouth. ALBUTEROL INHALATION Inhale as instructed. No current facility-administered medications on file prior to visit. Review of Systems: GENERAL: Negative for: Fever or Chills HEENT: Negative for: Headache, Impaired Vision, Ringing in Ears, Nosebleeds NECK: Negative for: Swelling, Pain, Stiffness RESPIRATORY: Positive for asthma and she reports chronic post covid lung changes GASTROINTESTINAL: Negative for: Heartburn, Constipation, Diarrhea, Blood in stool, Vomiting MUSCULOSKELETAL: Negative for: Muscle or joint pain, stiffness, Joint swelling NEUROLOGIC/PSYCHIATRIC: Positive history of depression SKIN: Negative for: Rash, Itching GENITOURINARY: Negative for: vaginal itching, vaginal discharge, hematuria or dysuria PHYSICAL EXAM: BP 120/90 Ht 5' 10.25 (1.78m) Wt 278 lb 6.4 oz (126.3kg) LMP 01/17/2022 BMI39.68 kg/(m^2). GENERAL: pleasant female in no apparent distress DERMATOLOGY: Normal, without lesions, non-icteric and non-hirsute NECK: Supple, full range of motion, no adenopathy and thyroid normal CHEST: Normal inspiratory effort BREAST: soft, non-tender, symmetric, no dominant mass, normal nipple-areolar complex, no lymphadenopathy and no nipple discharge ABDOMEN: soft, non-tender and no masses NEURO: exam grossly non-focal PELVIS: External genitalia normal without lesions. Perineal body intact. No vaginal or cervical lesions. Cervix closed. Uterus 9 week size. No adnexal masses or tenderness. Clinical Pelvimetry: Pelvimetry clinically assessed as adequate Limited OB ultrasound exam: single intrauterine , positive cardiac activity and crown-rump length 9w0d OB Risk Screening: Completed, no positive findings documented. ASSESSMENT: 22 year old at 9 wks gestational age PLAN: 1) Patient oriented to practice. Discussed nutrition, folic acid supplementation, dietary guidelines, exercise, smoking, alcohol, caffeine, and drug use. Discussed routine OB labs including STD/HIV. Discussed aneuploidy screening options including serum screening and nuchal translucency. NT ordered. Carrier screening discussed and declined. MFM consultation placed to be completed at time of ultrasound. Discussed baby ASA and Lovenox . Recommend establishing with counselor. Discussed r/b/a to Effexor. See problem list. Follow up in 4 weeks or sooner prn. Christy Abdalla DO documented in this encounterBethesda North Hospital05-16-2022 Instructions* Patient Instructions* Marina Aguillon MA - 03/15/2022 11:13 AM EDT Please select the following link to access the [facility] Your Guide to a Healthy . [email or web address] documented in this encounterBethesda North Hospital05-12-2022 History of Past illness Narrative* Problem Noted Date Resolved Date Nausea and vomiting during 03/11/2022 06/01/2022 Overview: 03/11/2022atient is complaining of nausea and occasional vomiting in . Dietary considerations discussed . Vitamin B6 recommended. Advised patient to call/come in if she is unable to keep any food or fluids down in a 24-hour period. TKRN Patient request for diagnostic testing 2 06/01/2022 Overview: 2Discussed aneuploidy screening with patient. Patient desires nuchal ultrasound and sequential testing. Patient declines genetic carrier screening testing.Allie Berger RN documented as of this encounter (statuses as of 06/01/2022) [facility] History of Past illness Narrative* Problem Noted Date Resolved Date Nausea and vomiting during 03/11/2022 06/01/2022 Overview: 03/11/2022atient is complaining of nausea and occasional vomiting in . Dietary considerations discussed . Vitamin B6 recommended. Advised patient to call/come in if she is unable to keep any food or fluids down in a 24-hour period. TKRN Patient request for diagnostic testing 2 06/01/2022 Overview: 2Discussed aneuploidy screening with patient. Patient desires nuchal ultrasound and sequential testing. Patient declines genetic carrier screening testing.Allie Berger RN documented as of this encounter (statuses as of 06/01/2022) [facility] of Past illness Narrative* Problem Noted Date Resolved Date Nausea and vomiting during 03/11/2022 06/01/2022 Overview: 03/11/2022atient is complaining of nausea and occasional vomiting in . Dietary considerations discussed . Vitamin B6 recommended. Advised patient to call/come in if she is unable to keep any food or fluids down in a 24-hour period. TKRN Patient request for diagnostic testing 2 06/01/2022 Overview: 2Discussed aneuploidy screening with patient. Patient desires nuchal ultrasound and sequential testing. Patient declines genetic carrier screening testing.Allie Berger RN documented as of this encounter (statuses as of 06/29/2022) [facility] of Past illness Narrative* Problem Noted Date Resolved Date Nausea and vomiting during 03/11/2022 06/01/2022 Overview: 03/11/2022atient is complaining of nausea and occasional vomiting in . Dietary considerations discussed . Vitamin B6 recommended. Advised patient to call/come in if she is unable to keep any food or fluids down in a 24-hour period. TKRN Patient request for diagnostic testing 2 06/01/2022 Overview: 2Discussed aneuploidy screening with patient. Patient desires nuchal ultrasound and sequential testing. Patient declines genetic carrier screening testing.Allie Berger RN documented as of this encounter (statuses as of 07/27/2022) [facility] of Past illness Narrative* Problem Noted Date Resolved Date Nausea and vomiting during 03/11/2022 06/01/2022 Overview: 03/11/2022atient is complaining of nausea and occasional vomiting in . Dietary considerations discussed . Vitamin B6 recommended. Advised patient to call/come in if she is unable to keep any food or fluids down in a 24-hour period. TKRN Patient request for diagnostic testing 2 06/01/2022 Overview: 2Discussed aneuploidy screening with patient. Patient desires nuchal ultrasound and sequential testing. Patient declines genetic carrier screening testing.Allie Berger RN documented as of this encounter (statuses as of 07/27/2022) [facility] of Past illness Narrative* Problem Noted Date Resolved Date Nausea and vomiting during 03/11/2022 06/01/2022 Overview: 03/11/2022atient is complaining of nausea and occasional vomiting in . Dietary considerations discussed . Vitamin B6 recommended. Advised patient to call/come in if she is unable to keep any food or fluids down in a 24-hour period. TKRN Patient request for diagnostic testing 2 06/01/2022 Overview: 2Discussed aneuploidy screening with patient. Patient desires nuchal ultrasound and sequential testing. Patient declines genetic carrier screening testing.Allie Berger RN documented as of this encounter (statuses as of 07/28/2022) [facility] of Past illness Narrative* Problem Noted Date Resolved Date Nausea and vomiting during 03/11/2022 06/01/2022 Overview: 03/11/2022atient is complaining of nausea and occasional vomiting in . Dietary considerations discussed . Vitamin B6 recommended. Advised patient to call/come in if she is unable to keep any food or fluids down in a 24-hour period. TKRN Patient request for diagnostic testing 2 06/01/2022 Overview: 03/11/2022iscussed aneuploidy screening with patient. Patient desires nuchal ultrasound and sequential testing. Patient declines genetic carrier screening testing.Allie Berger RN documented as of this encounter (statuses as of 08/24/2022) [facility] of Past illness Narrative* Problem Noted Date Resolved Date Nausea and vomiting during 03/11/2022 06/01/2022 Overview: 03/11/2022atient is complaining of nausea and occasional vomiting in . Dietary considerations discussed . Vitamin B6 recommended. Advised patient to call/come in if she is unable to keep any food or fluids down in a 24-hour period. TKRN Patient request for diagnostic testing 2 06/01/2022 Overview: 03/11/2022iscussed aneuploidy screening with patient. Patient desires nuchal ultrasound and sequential testing. Patient declines genetic carrier screening testing.Allie Berger RN documented as of this encounter (statuses as of 08/24/2022) [facility] of Past illness Narrative* Problem Noted Date Resolved Date Nausea and vomiting during 03/11/2022 06/01/2022 Overview: 03/11/2022atient is complaining of nausea and occasional vomiting in . Dietary considerations discussed . Vitamin B6 recommended. Advised patient to call/come in if she is unable to keep any food or fluids down in a 24-hour period. TKRN Patient request for diagnostic testing 2 06/01/2022 Overview: 05/12/2022Discussed aneuploidy screening with patient. Patient desires nuchal ultrasound and sequential testing. Patient declines genetic carrier screening testing.Allie Berger RN documented as of this encounter (statuses as of 08/31/2022) [facility] of Past illness Narrative* Problem Noted Date Resolved Date Nausea and vomiting during 03/11/2022 06/01/2022 Overview: 03/11/2022atient is complaining of nausea and occasional vomiting in . Dietary considerations discussed . Vitamin B6 recommended. Advised patient to call/come in if she is unable to keep any food or fluids down in a 24-hour period. TKRN Patient request for diagnostic testing 2 06/01/2022 Overview: 2Discussed aneuploidy screening with patient. Patient desires nuchal ultrasound and sequential testing. Patient declines genetic carrier screening testing.Allie Berger RN documented as of this encounter (statuses as of 09/14/2022) [facility] of Past illness Narrative* Problem Noted Date Resolved Date Nausea and vomiting during 03/11/2022 06/01/2022 Overview: 03/11/2022atient is complaining of nausea and occasional vomiting in . Dietary considerations discussed . Vitamin B6 recommended. Advised patient to call/come in if she is unable to keep any food or fluids down in a 24-hour period. TKRN Patient request for diagnostic testing 2 06/01/2022 Overview: 2Discussed aneuploidy screening with patient. Patient desires nuchal ultrasound and sequential testing. Patient declines genetic carrier screening testing.Allie Berger RN documented as of this encounter (statuses as of 09/21/2022) [facility] of Past illness Narrative* Problem Noted Date Resolved Date Nausea and vomiting during 03/11/2022 06/01/2022 Overview: 03/11/2022atient is complaining of nausea and occasional vomiting in . Dietary considerations discussed . Vitamin B6 recommended. Advised patient to call/come in if she is unable to keep any food or fluids down in a 24-hour period. TKRN Patient request for diagnostic testing 2 06/01/2022 Overview: 2Discussed aneuploidy screening with patient. Patient desires nuchal ultrasound and sequential testing. Patient declines genetic carrier screening testing.Allie Berger RN documented as of this encounter (statuses as of 09/21/2022) [facility] of Past illness Narrative* Problem Noted Date Resolved Date Nausea and vomiting during 03/11/2022 06/01/2022 Overview: 03/11/2022atient is complaining of nausea and occasional vomiting in . Dietary considerations discussed . Vitamin B6 recommended. Advised patient to call/come in if she is unable to keep any food or fluids down in a 24-hour period. TKRN Patient request for diagnostic testing 2 06/01/2022 Overview: 2Discussed aneuploidy screening with patient. Patient desires nuchal ultrasound and sequential testing. Patient declines genetic carrier screening testing.Allie Berger RN documented as of this encounter (statuses as of 09/24/2022) [facility] of Past illness Narrative* Problem Noted Date Resolved Date Nausea and vomiting during 03/11/2022 06/01/2022 Overview: 03/11/2022atient is complaining of nausea and occasional vomiting in . Dietary considerations discussed . Vitamin B6 recommended. Advised patient to call/come in if she is unable to keep any food or fluids down in a 24-hour period. TKRN Patient request for diagnostic testing 2 06/01/2022 Overview: 2Discussed aneuploidy screening with patient. Patient desires nuchal ultrasound and sequential testing. Patient declines genetic carrier screening testing.Allie Berger RN documented as of this encounter (statuses as of 09/27/2022) [facility] of Past illness Narrative* Problem Noted Date Resolved Date Nausea and vomiting during 03/11/2022 06/01/2022 Overview: 03/11/2022atient is complaining of nausea and occasional vomiting in . Dietary considerations discussed . Vitamin B6 recommended. Advised patient to call/come in if she is unable to keep any food or fluids down in a 24-hour period. TKRN Patient request for diagnostic testing 2 06/01/2022 Overview: 2Discussed aneuploidy screening with patient. Patient desires nuchal ultrasound and sequential testing. Patient declines genetic carrier screening testing.Allie Berger RN documented as of this encounter (statuses as of 09/28/2022) [facility] of Past illness Narrative* Problem Noted Date Resolved Date Nausea and vomiting during 03/11/2022 06/01/2022 Overview: 03/11/2022atient is complaining of nausea and occasional vomiting in . Dietary considerations discussed . Vitamin B6 recommended. Advised patient to call/come in if she is unable to keep any food or fluids down in a 24-hour period. TKRN Patient request for diagnostic testing 2 06/01/2022 Overview: 2Discussed aneuploidy screening with patient. Patient desires nuchal ultrasound and sequential testing. Patient declines genetic carrier screening testing.Allie Berger RN documented as of this encounter (statuses as of 09/29/2022) [facility] Past illness Narrative* Problem Noted Date Resolved Date Nausea and vomiting during 03/11/2022 06/01/2022 Overview: 03/11/2022atient is complaining of nausea and occasional vomiting in . Dietary considerations discussed . Vitamin B6 recommended. Advised patient to call/come in if she is unable to keep any food or fluids down in a 24-hour period. TKRN Patient request for diagnostic testing 2 06/01/2022 Overview: 2Discussed aneuploidy screening with patient. Patient desires nuchal ultrasound and sequential testing. Patient declines genetic carrier screening testing.Allie Berger RN documented as of this encounter (statuses as of 09/29/2022) [facility] Past illness Narrative* Problem Noted Date Resolved Date Nausea and vomiting during 03/11/2022 06/01/2022 Overview: 03/11/2022atient is complaining of nausea and occasional vomiting in . Dietary considerations discussed . Vitamin B6 recommended. Advised patient to call/come in if she is unable to keep any food or fluids down in a 24-hour period. TKRN Patient request for diagnostic testing 2 06/01/2022 Overview: 2Discussed aneuploidy screening with patient. Patient desires nuchal ultrasound and sequential testing. Patient declines genetic carrier screening testing.Allie Berger RN documented as of this encounter (statuses as of 09/29/2022) [facility] Past illness Narrative* Problem Noted Date Resolved Date Nausea and vomiting during 03/11/2022 06/01/2022 Overview: 03/11/2022atient is complaining of nausea and occasional vomiting in . Dietary considerations discussed . Vitamin B6 recommended. Advised patient to call/come in if she is unable to keep any food or fluids down in a 24-hour period. TKRN Patient request for diagnostic testing 2 06/01/2022 Overview: 2Discussed aneuploidy screening with patient. Patient desires nuchal ultrasound and sequential testing. Patient declines genetic carrier screening testing.Allie Berger RN documented as of this encounter (statuses as of 09/30/2022) [facility] Miscellaneous Notes* Quick Notes - Allie Berger RN - 03/11/2022 12:52 PM EDT DISTANCE HEALTH VISIT This Team Access Model visit is a phone encounter. It required patient-provider interaction for themedical decision making as documented below. Patient states she was diagnosed with COVID in 2020. She states she was in the hospital for about 3-1/2 months at both [place] and [place]. She was on a ventilator for 40 days. Still has issues with a cough and tachycardia. She is currentlyon metoprolol for tachycardia prescribed by . I have asked her to call the doctor's officeand let her know that she is to discuss any medication questions. She states that she developed a blood clot under her right knee due to COVID and was treated at the [facility]. States she has been off Eliquis since December. Patient is obese. We will plan on early hemoglobin A1c.Pt has a history of depression diagnosed September 2020 but she feels that she had unreported depression since childhood. She is currently taking Effexor prescribed by . Feels she is doing wellon the medication. Has not attended any counseling in the past. Discussed increased risks of depression during and and importance of reporting the development or worsening of symptoms should they occur.Pt denies ever having any suicidal thoughts or tendencies or thoughts of hurting others.Patient is complaining of nausea and occasional vomiting in . Dietary considerat ions discussed . Vitamin B6 recommended. Advised patient to call/come in if she is unable to keep any food or fluids down in a 24-hour period. Father of the baby states his uncle was born with then extra valve and heart. Discussed aneuploidy screening with patient. Patient desires nuchal ultrasound and sequential testing. Patient declines genetic carrier screening testing.Allie Berger RN [facility]Reason for visit Narrative* Chief Complaint RULE OUT PRE E SOB mom low milk supply 2 M FU U09.9 - Post COVID-19 condition, unspecified U09.9 - Post COVID-19 condition, unspecified U09.9 - Post COVID-19 condition, unspecified U09.9 - Post COVID-19 condition, unspecified PPD 6 wk FU 2 W FU Reason for Visit Headache in pregnanc y Post covid-19 condition, unspecified Care and examination of lactating mother Other disorders of Care and examination of lactating mother Other disorders of Restrictive airway disease Chronic hypoxemic respiratory failure Fatigue Post depression Asthma Daytime hypersomnia Hypoxemic respiratory failure, chronic Pulmonary fibrosis, postinflammatory URI (upper respiratory infection) Post depression [facility] Work Phone: Discharge summary Author Dr. Maharaj [facility] April 23, 2023 12:00pm Note Date/Time April 23, 2023 11:1 5am [facility] Medical Records Department [address] [place] [address] Emergency Department Summary 04/23/23 MR#: [id number] Acct: [id number] Name: ALEYDA MEJÍA Rep #:[id number] : 2000 23 From: Rebeka GIRON PCP: Dr. Matt Mendoza MD Status:R EG ER Location: ED HPI <BREE Turner - Last Filed: 04/23/23 11:50> History of Present Illness Chief Complaint: Diarrhea Narrative Narrative: 23-year-old female hashad 5 days of nausea and diarrhea. The first it started the diarrhea was every 1-2 hours but now it slowed to about twice a day. She istolerating p.o. intake but still feels very nauseous and is concerned she could be dehydrated. She has had intermittent generalized abdominal cramping but no significant pain. No fever, chills, or upper respiratory symptoms. Denies blood in her stool or urinary symptoms. No recent travel, different foods, or antibiotics. Her family had similar symptoms but it only lasted about a day. [facility] <BREE Turner - Last Filed: 04/23/23 11:50> [facility] Medical History 16 weeks gestation of Acute respiratory failure due to COVID-19 Alcohol use Anemia Anemia Anxiety Back pain C. difficile enteritis Cough COVID Cranial neuropathy Depression Dermatitis DVT (deep venous thrombosis) DVT (deep venous thrombosis) Edema Exotropia Fatigue Heartburn during History of COVID-19 History of malnutrition History of pneumothorax Hx of Clostridium difficile infection Hx of recurrent urinary tract infection Nonsmoker Obesity On home oxygen therapy Ophthalmoplegia of right eye Post depression Recurrent pneumothorax after chest tube removed Restless leg Sore throat Sprain and strain of temporomandibular joint Tonsillar enlargement URI (upper respiratory infection) Ventilator associated pneumonia Home Medications prenat.vits,jorge alberto,[id number] 1 tab PO DAILY 09/24/22 [History Last Taken 09/25/22 08:30] biotin 1 mg capsule 1 mg PO DAILY 02/02/23 [History Last Taken Unknown] albuterol sulfate 90 mcg/actuation aerosol inhaler 2 puff inhalation Q4H PRN shortness of breath or wheezing #8.5 grams 03/07/23 [Rx Last Taken Unknown] budesonide-formoterol HFA 160 mcg-4.5 mcg/actuation aerosol inhaler (Symbicort) 2 puff inhalation BID #10.2 grams 03/07/23 [Rx Last Taken Unknown] cholecalciferol (vitamin D3) 25 mcg (1,000 unit) capsule 25 mcg PO DAILY 03/07/23 [History Last Taken Unknown] venlafaxine 150 mg capsule,extended release 24 hr See Rx Instructions .Route .COMPLEX 04/06/23 [History Last Taken Unknown] venlafaxine 75 mg capsule,extended release 24 hr 75 mg PO QPM DEPRESSION 04/06/23 [History Last Taken Unknown] ondansetron 4 mg disintegrating tablet 4 mg PO Q8H PRN PRN Nausea #10 tabs 04/23/23 [Rx Last Taken Unknown] Allergy/AdvReac Type Severity Reaction Status Date / Time No Known Allergies Allergy Verified 04/23/23 11:22 Family History Mother Diabetes Grandmother Hypertension Leukemia Surgical History History of placement of chest tube History of tracheostomy Social History adopted: No household members: significant other housing: house number of children: 0 current occupational status: unemployed history of recent travel: No Smoking Status: Never smoker alcohol intake: former details: rare ETOH prior to COVID infection in July 2021. None currently substance use type: does not use ROS <BREE Turner - Last Filed: 04/23/23 11:50> ROS ED ROS Narrative Constitutional: Negative for fever, chills, malaise. ENT: Negative for sore throat, rhinorrhea. CVS: Negative for palpitations, chest pain. Respiratory: Negative for shortness of breath, cough. GI: Positive for abdominal pain, nausea, diarrhea. Negative for vomiting, constipation, melena, hematochezia. : Negative for dysuria, hematuria or frequency. Neuro: Negative for headache. EXAM <BREE Turner - Last Filed: 04/23/23 11:50> Physical Exam Narrative Exam Narrative: CONST: Patient sitting in no acute distress. EYES: Normal inspection. ENT: Normal inspection, moist mucous membranes. NECK: Normal inspection. RESP: No respiratory distress, CTAB. CVS: Regular rate and rhythm, no murmur, no gallop. ABD: Soft and nontender, no guarding or rebound, nondistended, no hepatosplenomegaly. SKIN: Color normal, no rash, warm, dry, intact. EXTREMITIES: Normal appearance, no pedal edema. NEURO: Oriented x4. PSYCH: Normal affect. Const Vital Signs: 04/23/23 10:47 Temperature 97.3 F L Temperature Source Temporal Pulse Rate 95 Respiratory Rate 15 Blood Pressure 134/85 H Blood Pressure Mean 101 Pulse Ox 100 Oxygen Delivery Method Room Air <Dr. Grant Maharaj, - Last Filed: 04/23/23 12:00> Physical Exam Const Vital Signs: 04/23/23 10:47 Temperature 97.3 F L Temperature Source Temporal Pulse Rate 95 Respiratory Rate 15 Blood Pressure 134/85 H Blood Pressure Mean 101 Pulse Ox 100 Oxygen Delivery Method Room Air MDM <BREE Turner - Last Filed: 04/23/23 11:50> [facility] Narrative Medical decision making narrative: Patient has had 5 days of nausea and diarrhea which is slowly improving. She appears well and nontoxic and is afebrile with normal vital signs. She has moist mucous membranes and a soft, nontender abdomen. She was given a liter of IV fluids and BMP obtained which is only remarkable for potassium of 3.2 which was replaced here. I prescribed Zofran for home recommended increased hydrationand discussed the usual course of viral diarrhea. She was given return precautions and discharged in stable condition. Viral gastroenteritis, bacterial diarrhea, C. difficile, diverticulitis I considered a CT abdomen/pelvis but she has no abdominal pain or tenderness andis afebrile Lab Data Attestation: I reviewed the patient's lab results. Labs: Laboratory Results - last 24 hr 04/23/23 11:17 Sodium 139 Potassium 3.2 L Chloride 110 H Carbon Dioxide 25.0 Anion Gap 4 L BUN 13 Creatinine 0.81 Estim Creat Clear Calc 119.70 Est GFR (MDRD) Af Amer 111 Est GFR (MDRD) Non-Af 92 BUN/Creatinine Ratio 16.0 Glucose 95 Calcium 8.9 <Dr. Grant Maharaj, DO - Last Filed: 04/23/23 12:00> [facility] MDM Narrative Medical decision making narrative: Patient has had 5 days of nausea and diarrhea which is slowly improving. She appears well and nontoxic and is afebrile with normal vital signs. She has moist mucous membranes and a soft, nontender abdomen. She was given a liter of IV fluids and BMP obtained which is only remarkable for potassium of 3.2 which was replaced here. I prescribed Zofran for home recommended increased hydrationand discussed the usual course of viral diarrhea. She was given return precautions and discharged in stable condition. Viral gastroenteritis, bacterial diarrhea, C. difficile, diverticulitis I considered a CT abdomen/pelvis but she has no abdominal pain or tenderness andis afebrile This patient was seen with a PA/ACCOUNTS EXECUTIVE Individually assessed they patient including history and physical. I have reviewed everything on the chart that is availableand agree with the documentation provided by the PA/ACCOUNTS EXECUTIVE including discussion about the assessment, treatment plan, discussion, and return precautions. Well-appearing 23-year-old female with improving diarrhea requesting IV fluids. BMP was obtained which shows potassium of 3.2. Otherwise unremarkable. Potassium repleted. Patient received her full liter IV fluids. Discharged in stable condition. Lab Data Labs: Laboratory Results - last 24 hr 04/23/23 11:17 Sodium 139 Potassium 3.2 L Chloride 110 H Carbon Dioxide 25.0 Anion Gap 4 L BUN 13 Creatinine 0.81 Estim Creat Clear Calc 119.70 Est GFR (MDRD) Af Amer 111 Est GFR (MDRD) Non-Af 92 BUN/Creatinine Ratio 16.0 Glucose 95 Calcium 8.9 Discharge Plan Triage Chief Complaint: Diarrhea ED Midlevel Provider: Rebeka Harmon ED Provider: Grant Maharaj Dx/Rx/DC Orders Clinical Impression: Acute diarrhea, Acute hypokalemia Instructions: ED Diarrhea, Viral (Adult) Prescriptions: New ondansetron 4 mg tablet,disintegrating 4 mg PO Q8H PRN PRN (Reason: Nausea) Qty: 10 0RF No Action cholecalciferol (vitamin D3) 25 mcg (1,000 unit) capsule 25 mcg PO DAILY budesonide-formoterol [Symbicort] 160-4.5 mcg/actuation HFA aerosol inhaler 2 puff inhalation BID Qty: 10.2 11RF albuterol sulfate 90 mcg/actuation HFA aerosol inhaler 2 puff inhalation Q4H PRN (Reason: shortness of breath or wheezing) Qty: 8.5 6RF Rx Instructions: administer with spacer biotin 1 mg capsule 1 mg PO DAILY venlafaxine 150 mg capsule,extended release 24hr See Rx Instructions .ROUTE .COMPLEX Dose Instruction: take 1 capsule by mouth once daily Rx Instructions: take 1 capsule by mouth once daily in a.m venlafaxine 75 mg capsule,extended release 24hr 75 mg PO QPM Rx Instructions: Take with 150mg capsule. prenat.vits,jorge alberto,[id number] Tablet 1 tab PO DAILY Primary Care Provider: Matt Mendoza Referrals: Matt Mendoza MD [Primary Care Provider] - Activity Restrictions/Additional Instructions: I prescribed nausea medicine to take as needed. Drink plenty of fluids. Most viral diarrhea resolves on its own within 7 to 10 days. Return to ER if symptoms worsen. Disposition Disposition: Home, Self Care What to do if you have Problems For any increased pain, shortness of breath, bleeding, nausea or vomiting, chestpain, or any unexpected problems, contact your Primary Care Provider. Call [facility] ([phone]) or report to the closest Emergency Room. Call 911 if necessary. 04/23/23 1150 <Electronically signed by Rebeka GIRON> Cosigner Signature (if applicable): 04/23/23 1200 <Electronically signed by Grant Maharaj DO> CC: Dr. 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 Hypoxemic respiratory failure, chronic chronic Pulmonary fibrosis, postinflammatory chronic Tachycardia chronic Acute respiratory failure due to COVID-19 resolved Hx of recurrent urinary tract infection resolved Abnormal chest CT acute Asthma acute DVT (deep venous thrombosis) acute Post covid-19 condition, unspecified acute Hypoxemic respiratory failure, chronic chronic Physical deconditioning acut e Post covid-19 condition, unspecified acute Anxiety with depression 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 Hypoxemic respiratory failure, chronic chronic Tachycardia chronic Dermatitis acute Sprain and strain of temporomandibular joint acute Anxiety with depression 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 Pulmonary fibrosis, postinflammatory chronic Tachycardia chronic Abnormal chest CT acute Post covid-19 condition, unspecified acute Chronic hypoxemic respiratory failure [facility] Work Phone: Evaluation note* Diagnosis Supervision of high risk , antepartum- Primary History of COVID-19 History of tachycardia Other specified conditions influencing health status History of DVT (deep vein thrombosis) Personal history of venous thrombosis and embolism Obesity in Obesity complicating , childbirth, or the puerperium, unspecified as to episode of care or not applicable History of depression Personal history of other mental disorder Nausea and vomiting during Family history of congenital heart defect Family history of congenital anomalies Patient request for diagnostic testing Other specified examination [facility] Encounter for care in first trimester of first - Primary 9 weeks gestation of state, incidental Obesity in Obesity complicating , childbirth, or the puerperium, unspecified as to episode of care or not applicable History of DVT (deep vein thrombosis) Personal history of venous thrombosis and embolism History of COVID-19 History of depression Personal history of other mental disorder Tachycardia Tachycardia, unspecified [facility] Supervision of high risk in second trimester- Primary Unspecified high-risk Encounter for screening for nuchal translucency Obesity in Obesity complicating , childbirth, or the puerperium, unspecified as to episode of care or not applicable 12 weeks gestation of state, incidental [facility] [place] [facility] Diagnosis Encounter for (NT) nuchal translucency scan- Primary Other specified screening 12 weeks gestation of state, incidental 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 Pulmonary fibrosis, postinflammatory chronic Tachycardia chronic Abnormal chest CT acute Post covid-19 condition, unspecified acute Chronic hypoxemic respiratory failure chronic [facility] Work Phone: Evaluation note* Diagnosis Obesity in - Primary Obesity complicating , childbirth, or the puerperium, unspecified as to episode of care or not applicable Supervision of high risk in second trimester Unspecified high-risk 16 weeks gestation of state, incidental documented in this encounter [facility] note* Diagnosis Onset Date Resolution Status Dermatitis acute Sprain and strain of temporomandibular joint acute Anxiety with depression 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 Pulmonary fibrosis, postinflammatory chronic Tachycardia chronic Abnormal chest CT acute Post covid-19 condition, unspecified acute Chronic hypoxemic respiratory failure chronic Abnormal chest CT acute 16 weeks gestation of acute Anxiety with depression 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 Pharyngitis noneactive [facility] Work Phone: Evaluation note* Diagnosis Obesity in - Primary Obesity complicating , childbirth, or the puerperium, unspecified as to episode of care or not applicable Supervision of high risk in second trimester Unspecified high-risk 20 weeks gestation of state, incidental [facility] Diagnosis Postinflammatory pulmonary fibrosis (HCC)- Primary Postinflammatory pulmonary fibrosis History of depression Personal history of other mental disorder History of DVT (deep vein thrombosis) Personal history of venous thrombosis and embolism Obesity in Obesity complicating , childbirth, or the puerperium, unspecified as to episode of care or not applicable History of tachycardia Other specified conditions influencing health status History of COVID-19 Encounter for anatomic survey 20 weeks gestation of state, incidental [facility] Diagnosis 24 weeks [facility] of - Primary state, incidental High-risk in second trimester [facility] [place] [facility]* Diagnosis Onset Date Resolution Status Abnormal chest CT acute 16 weeks gestation of acute Anxiety with depression 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 Pharyngitis noneactive Anxiety with depression 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 22 weeks gestation of noneactive [facility] Work Phone: Evaluation note* Diagnosis Obesity in - Primary Obesity complicating , childbirth, or the puerperium, unspecified as to episode of care or not applicable 28 weeks gestation of state, incidental [facility] [place] [facility]* Diagnosis Supervision of high risk in third trimester- Primary Unspecified high-risk Obesity in Obesity complicating , childbirth, or the puerperium, unspecified as to episode of care or not applicable 28 weeks gestation of state, incidental Need for vaccination Need for prophylactic vaccination and inoculation against unspecified single disease [facility] [place] [facility]* Diagnosis Abnormal glucose complicating - Primary Abnormal maternal glucose tolerance, complicating , childbirth, or the puerperium, unspecified as to episode of care [facility] [place] [facility]* Diagnosis Onset Date Resolution Status Abnormal chest CT acute 16 weeks gestation of acute Anxiety with depression 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 Pharyngitis noneactive Anxiety with depression 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 22 weeks gestation of noneactive Cough acute Sore throat acute Tonsillar enlargement acute [facility] Work Phone: Evaluation note* Diagnosis COVID19 with history of tracheostomy; long COVID; supplemental O2 requirement- Primary Other current maternal conditions classifiable elsewhere, antepartum Abnormal glucose complicating Abnormal maternal glucose tolerance, complicating , childbirth, or the puerperium, unspecified as to episode of care Obesity in Obesity complicating , childbirth, or the puerperium, unspecified as to episode of care or not applicable History of DVT (deep vein thrombosis) Personal history of venous thrombosis and embolism History of depression Personal history of other mental disorder care Unspecified high-risk [facility] [place] [facility]* Diagnosis 32 weeks gestation of - Primary state, incidental Supervision of high risk in third trimester Unspecified high-risk COVID-19 long hauler manifesting chronic dyspnea [facility] [place] [facility]* Diagnosis Obesity in - Primary Obesity complicating , childbirth, or the puerperium, unspecified as to episode of care or not applicable [facility] [place] [facility]* Diagnosis COVID-19 long hauler manifesting chronic dyspnea- Primary Obesity in Obesity complicating , childbirth, or the puerperium, unspecified as to episode of care or not applicable 35 weeks gestation of state, incidental High-risk in third trimester [facility] [place] [facility]* Diagnosis COVID-19 long hauler manifesting chronic dyspnea COVID19 with history of tracheostomy; long COVID; supplemental O2 requirement Other current maternal conditions classifiable elsewhere, antepartum Obesity in Obesity complicating , childbirth, or the puerperium, unspecified as to episode of care or not applicable History of DVT (deep vein thrombosis) Personal history of venous thrombosis and embolism History of depression Personal history of other mental disorder documented in this encounter [facility]* Diagnosis 36 weeks gestation of - Primary state, incidental COVID-19 long hauler manifesting chronic dyspnea Obesity in Obesity complicating , childbirth, or the puerperium, unspecified as to episode of care or not applicable High-risk in third trimester documented in this encounter [facility] note* Diagnosis Onset Date Resolution Status Anxiety with depression 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 [place] [facility]* Diagnosis Supervision of high risk in third trimester- Primary Unspecified high-risk Obesity complicating , third trimester documented in this encounter [facility] note* Diagnosis Status post section routine follow-up- Primary Routine follow-up [facility] Diagnosis care and examination- Primary Routine follow-up Nexplanon insertion Insertion of implantable subdermal contraceptive [facility] [place] [facility]* Diagnosis Onset Date Resolution Status Cough acute Sore throat acute Tonsillar enlargement acute Chronic hypoxemic respiratory failure chronic Headache in acute Post covid-19 condition, unspecified acute Care and examination of lactating mother noneactive Other disorders of noneactive Care and examination of lactating mother noneactive Other disorders of noneactive Restrictive airway disease a cute Chronic hypoxemic respiratory failure [facility] Work Phone: Evaluation note* Diagnosis Nexplanon insertion- Primary Insertion of implantable subdermal contraceptive documented in this encounter [facility] note* Diagnosis Onset Date Resolution Status Chronic hypoxemic respiratory failure chronic Headache in acute Post covid-19 condition, unspecified acute Care and examination of lactating mother noneactive Other disorders of noneactive Care and examination of lactating mother noneactive Other disorders of noneactive Restrictive airway disease a cute Chronic hypoxemic respiratory failure chronic Fatigue acute Post depression acute Asthma acute Daytime hypersomnia acute Hypoxemic respiratory failure, chronic chronic Pulmonary fibrosis, postinflammatory chronic [facility] Work Phone: Evaluation note* Diagnosis Onset Date Resolution Status Headache in acute Post covid-19 condition, unspecified acute Care and examination of lactating mother noneactive Other disorders of noneactive Care and examination of lactating mother noneactive Other disorders of noneactive Restrictive airway disease a cute Chronic hypoxemic respiratory failure chronic Fatigue acute Post depression chron ic Asthma acute Daytime hypersomnia acute Hypoxemic respiratory failure, chronic chronic Pulmonary fibrosis, postinflammatory chronic URI (upper respiratory infection) acute Post depression chron ic [facility] Work Phone: Evaluation note* Diagnosis Ingrown hair- Primary Other specified disease of hair and hair follicles [facility] [place] [facility] Diagnosis Onset Date Resolution Status Fatigue acute Post depression chron ic Asthma acute Daytime hypersomnia acute Hypoxemic respiratory failure, chronic chronic Pulmonary fibrosis, postinflammatory chronic URI (upper respiratory infection) acute Post depression chron ic Post depression chron ic Asthma acute Restrictive airway disease a cute Chronic hypoxemic respiratory failure [facility] Work Phone: Evaluation note* Diagnosis Onset Date Resolution Status Asthma acute Daytime hypersomnia acute Hypoxemic respiratory failure, chronic chronic Pulmonary fibrosis, postinflammatory chronic URI (upper respiratory infection) acute Post depression chron ic Post depression chron ic Asthma acute Restrictive airway disease a cute Chronic hypoxemic respiratory failure chronic Depression [facility] Work Phone: Evaluation note* Diagnosis Onset Date Resolution Status Post depression chron ic Asthma acute Restrictive airway disease a cute Chronic hypoxemic respiratory failure chronic Depression [facility] Work Phone: Evaluation note* Diagnosis History of blood clots- Primary Personal history of venous thrombosis and embolism [facility] [place] [facility]* Diagnosis Sore throat- Primary Acute pharyngitis Viral illness Unspecified viral infection, in conditions classified elsewhere and of unspecified site 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 [place] [facility]* Diagnosis Sore throat- Primary Acute pharyngitis [facility] Diagnosis Irregular bleeding- Primary Irregular menstrual cycle documented in this encounter [facility] note* Diagnosis Postinflammatory pulmonary fibrosis (HCC)- Primary Postinflammatory pulmonary fibrosis History of depression Personal history of other mental disorder History of DVT (deep vein thrombosis) Personal history of venous thrombosis and embolism Obesity in Obesity complicating , childbirth, or the puerperium, unspecified as to episode of care or not applicable History of tachycardia Other specified conditions influencing health status History of COVID-19 Encounter for anatomic survey 20 weeks gestation of state, incidental COVID19 with history of tracheostomy; long COVID; supplemental O2 requirement- Primary Other current maternal conditions classifiable elsewhere, antepartum Abnormal glucose complicating Abnormal maternal glucose tolerance, complicating , childbirth, or the puerperium, unspecified as to episode of care Obesity in Obesity complicating , childbirth, or the puerperium, unspecified as to episode of care or not applicable History of DVT (deep vein thrombosis) Personal history of venous thrombosis and embolism History of depression Personal history of other mental disorder care Unspecified high-risk COVID-19 long hauler manifesting chronic dyspnea COVID19 with history of tracheostomy; long COVID; supplemental O2 requirement Other current maternal conditions classifiable elsewhere, antepartum Obesity in Obesity complicating , childbirth, or the puerperium, unspecified as to episode of care or not applicable History of DVT (deep vein thrombosis) Personal history of venous thrombosis and embolism History of depression Personal history of other mental disorder Cough, persistent Cough [facility] Diagnosis Postinflammatory pulmonary fibrosis (HCC)- Primary Postinflammatory pulmonary fibrosis History of depression Personal history of other mental disorder History of DVT (deep vein thrombosis) Personal history of venous thrombosis and embolism Obesity in Obesity complicating , childbirth, or the puerperium, unspecified as to episode of care or not applicable History of tachycardia Other specified conditions influencing health status History of COVID-19 Encounter for anatomic survey 20 weeks gestation of state, incidental COVID19 with history of tracheostomy; long COVID; supplemental O2 requirement- Primary Other current maternal conditions classifiable elsewhere, antepartum Abnormal glucose complicating Abnormal maternal glucose tolerance, complicating , childbirth, or the puerperium, unspecified as to episode of care Obesity in Obesity complicating , childbirth, or the puerperium, unspecified as to episode of care or not applicable History of DVT (deep vein thrombosis) Personal history of venous thrombosis and embolism History of depression Personal history of other mental disorder care Unspecified high-risk COVID-19 long hauler manifesting chronic dyspnea COVID19 with history of tracheostomy; long COVID; supplemental O2 requirement Other current maternal conditions classifiable elsewhere, antepartum Obesity in Obesity complicating , childbirth, or the puerperium, unspecified as to episode of care or not applicable History of DVT (deep vein thrombosis) Personal history of venous thrombosis and embolism History of depression Personal history of other mental disorder Left foot pain Pain in limb Acute left ankle pain [facility] this [facility] [place] [facility]* Diagnosis Postinflammatory pulmonary fibrosis (HCC)- Primary Postinflammatory pulmonary fibrosis History of depression Personal history of other mental disorder History of DVT (deep vein thrombosis) Personal history of venous thrombosis and embolism Obesity in Obesity complicating , childbirth, or the puerperium, unspecified as to episode of care or not applicable History of tachycardia Other specified conditions influencing health status History of COVID-19 Encounter for anatomic survey 20 weeks gestation of state, incidental COVID19 with history of tracheostomy; long COVID; supplemental O2 requirement- Primary Other current maternal conditions classifiable elsewhere, antepartum Abnormal glucose complicating Abnormal maternal glucose tolerance, complicating , childbirth, or the puerperium, unspecified as to episode of care Obesity in Obesity complicating , childbirth, or the puerperium, unspecified as to episode of care or not applicable History of DVT (deep vein thrombosis) Personal history of venous thrombosis and embolism History of depression Personal history of other mental disorder care Unspecified high-risk COVID-19 long hauler manifesting chronic dyspnea COVID19 with history of tracheostomy; long COVID; supplemental O2 requirement Other current maternal conditions classifiable elsewhere, antepartum Obesity in Obesity complicating , childbirth, or the puerperium, unspecified as to episode of care or not applicable History of DVT (deep vein thrombosis) Personal history of venous thrombosis and embolism History of depression Personal history of other mental disorder Viral illness- Primary Unspecified viral infection, in conditions classified elsewhere and of unspecified site [facility] [place] [facility]* Diagnosis Postinflammatory pulmonary fibrosis (HCC)- Primary Postinflammatory pulmonary fibrosis History of depression Personal history of other mental disorder History of DVT (deep vein thrombosis) Personal history of venous thrombosis and embolism Obesity in (HCC) Obesity complicating , childbirth, or the puerperium, unspecified as to episode of care or not applicable History of tachycardia Other specified conditions influencing health status History of COVID-19 Encounter for anatomic survey (HCC) Encounter for anatomic survey 20 weeks gestation of (HCC) state, incidental COVID19 with history of tracheostomy; long COVID; supplemental O2 requirement- Primary Other current maternal conditions classifiable elsewhere, antepartum Abnormal glucose complicating (HCC) Abnormal maternal glucose tolerance, complicating , childbirth, or the puerperium, unspecified as to episode of care Obesity in (HCC) Obesity complicating , childbirth, or the puerperium, unspecified as to episode of care or not applicable History of DVT (deep vein thrombosis) Personal history of venous thrombosis and embolism History of depression Personal history of other mental disorder care Unspecified high-risk COVID-19 long hauler manifesting chronic dyspnea COVID19 with history of tracheostomy; long COVID; supplemental O2 requirement Other current maternal conditions classifiable elsewhere, antepartum Obesity in (HCC) Obesity complicating , childbirth, or the puerperium, unspecified as to episode of care or not applicable History of DVT (deep vein thrombosis) Personal history of venous thrombosis and embolism History of depression Personal history of other mental disorder Bacterial sinusitis- Primary Unspecified sinusitis (chronic) [facility] noteNo assessment information availableBl[facility]manate [facility] Work Phone: [facility] Work Phone: Hospital Discharge instructions Additional Instructions patient taken to the [facility] ED for further evlauation of SOB/URI sx.[facility] Work Phone: Hospital Discharge instructions Additional Instructions Augmentin 1 pill twice a day with food on your stomach. Plenty of fluids and rest. 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.[facility] Work Phone: Hospital Discharge instructionsAmbulatory Orders* WIRE STITCHER OPERATOR Location: None Selected [facility] Work Phone: Reason for referral (narrative)* Diagnostic Procedure Only (Routine) - Authorized Specialty Diagnoses / Procedures Referred By Susanna kwok Referred To Contact [facility] Diagnoses 16 weeks gestation of Supervision of high risk in second trimester Obesity in Procedures OBSTETRIC ULTRASOUND WHI US PREG UTERUS AFTER 1ST TRIMEST GESTATION Ying Damico MD [address] [place] [address] [facility] [address] [place] [address] Referral ID Status Reason Start Date Expiration Date Visits Requested Visits Authorized [id number] Authorized Auto-Generat ed Referral 05/04/2022 05/04/2023 1 1 [facility] for referral (narrative)* Outpatient Procedure (Routine) - Pending Review Specialty Diagnoses / Procedures Referred By Contac t Referred To Contact [facility] [place] Diagnoses History of tachycardia History of COVID-19 Postinflammatory pulmonary fibrosis (HCC) Procedures ECHO ECHO TTHRC R-T 2D W/WOM-MODE COMPL SPEC&[place] [address] [place] [address] [address] Referral ID Status Reason Start Date Expiration Date Visits Requested Visits Authorized [id number] Pending Review Auto-Generat ed Referral 06/01/2022 06/01/2023 1 1 * Consult, Test, Treat (Routine) - Authorized Specialty Diagnoses / Procedures Referred By Contac t Referred To Contact Cardiology Diagnoses History of tachycardia History of COVID-19 Postinflammatory pulmonary fibrosis (HCC) Procedures CONSULT TO CARDIOLOGY OFFICE/OUTPATIENT [facility] HIGH MDM 60-[place] [address] [place] [address] Referral ID Status Reason Start Date Expiration Date Visits Requested Visits Authorized [id number] Authorized PCP Requested Referral 06/01/2022 06/01/2023 1 1 [facility] for referral (narrative)* Diagnostic Procedure Only (Routine) - Authorized Specialty Diagnoses / Procedures Referred By Contac t Referred To Contact [facility] Diagnoses 24 weeks gestation of High-risk in second trimester Procedures OBSTETRIC ULTRASOUND WHI US PREG UTERUS AFTER 1ST TRIMEST GESTATION Samara Woo MD [address] [place] [address] [id number] [place] [address] Referral ID Status Reason Start Date Expiration Date Visits Requested Visits Authorized [id number] Authorized Auto-Generat ed Referral 06/29/2022 06/29/2023 1 1 [facility] for referral (narrative)* Diagnostic Procedure Only (Routine) - Authorized Specialty Diagnoses / Procedures Referred By Contac t Referred To Contact [facility] Diagnoses Obesity in 28 weeks gestation of Procedures OBSTETRIC ULTRASOUND WHI US PREG UTERUS AFTER 1ST TRIMEST GESTATION Praneeth Moreau MD [address] [place] [address] [id number] [place] [address] Referral ID Status Reason Start Date Expiration Date Visits Requested Visits Authorized [id number] Authorized Auto-Generat ed Referral 07/27/2022 07/27/2023 1 1 [facility] for referral (narrative)* Outpatient Procedure (Routine) - Pending Review Specialty Diagnoses / Procedures Referred By Contac t Referred To Contact [facility] Diagnoses COVID-19 long hauler manifesting chronic dyspnea Procedures NON-STRESS TEST NON-STRESS TEST Praneeth Moreau MD [address] [place] [address] [facility] [address] [place] [address] Referral ID Status Reason Start Date Expiration Date Visits Requested Visits Authorized [id number] Pending Review Auto-Generat ed Referral 08/24/2023 8 1 * Diagnostic Procedure Only (Routine) - Authorized Specialty Diagnoses / Procedures Referred By Contac t Referred To Contact [facility] Diagnoses COVID-19 long ismaeluler manifesting chronic dyspnea Procedures OBSTETRIC ULTRASOUND WHI US PREG UTERUS AFTER 1ST TRIMEST GESTATION Praneeth Moreau MD [address] [place] [address] [facility] [address] [place] [address] Referral ID Status Reason Start Date Expiration Date Visits Requested Visits Authorized [id number] Authorized Auto-Generat ed Referral 2 08/24/2023 1 1 * Outpatient Procedure (Routine) - Pending Review Specialty Diagnoses / Procedures Referred By Susanna t Referred To Contact [facility] Diagnoses COVID-19 long ismaeluler manifesting chronic dyspnea Procedures ECHO ECHO TTHRC R-T 2D W/WOM-MODE COMPL SPEC&COLR D Praneeth Moreau MD [address] [place] [address] [address] Referral ID Status Reason Start Date Expiration Date Visits Requested Visits Authorized [id number] Pending Review Auto-Generat ed Referral 2 08/24/2023 1 1 [facility] for referral (narrative)* Outpatient Procedure (Routine) - Pending Review Specialty Diagnoses / Procedures Referred By Susanna t Referred To Contact [facility] Diagnoses Nexplanon insertion Procedures NEXPLANON INSERTION ETONOGESTREL IMPLANT SYSTEM INSERT DRUG IMPLANT DEVICE Samara Woo MD [address] [place] [address] [address] Referral ID Status Reason Start Date Expiration Date Visits Requested Visits Authorized [id number] Pending Review Auto-Generat ed Referral 11/19/2022 11/19/2023 1 1 [facility] for referral (narrative)* Diagnostic Procedure Only (Routine) - Pending Review Specialty Diagnoses / Procedures Referred By Contac t Referred To Contact [facility] Diagnoses Irregular bleeding Procedures PELVIC US WHI US PELVIC NONOBSTETRIC REAL-TIME IMAGE COMPLETE Edilma Sandhu APRN.CNP [address] [place] [address] [facility] [address] [place] [address] Referral ID Status Reason Start Date Expiration Date Visits Requested Visits Authorized [id number] Pending Review Auto-Generat ed Referral 04/25/2024 04/25/2025 1 1 [facility] for referral (narrative)* Diagnostic Procedure Only (Urgent) - Closed Specialty Diagnoses / Procedures Referred By Contac t Referred To Contact [facility] Diagnoses Left foot pain Acute left ankle pain Procedures XR ANKLE GENERAL 3V AP/LAT/OBL LEFT RADEX ANKLE COMPLETE MINIMUM 3 VIEWS [facility] [address] [place] [address] [place] [address] Referral ID Status Reason Start Date Expiration Date V isits Requested Visits Authorized [id number] Closed Auto-Generate d Referral 03/24/2023 04/22/2024 1 1 * Diagnostic Procedure Only (Urgent) - Closed Specialty Diagnoses / Procedures Referred By Contac t Referred To Contact [facility] Diagnoses Left foot pain Acute left ankle pain Procedures XR FOOT GENERAL 3V AP/LAT/OBL LEFT RADEX FOOT COMPLETE MINIMUM 3 VIEWS [facility] [address] [place] [address] [place] [address] Referral ID Status Reason Start Date Expiration Date V isits Requested Visits Authorized [id number] Closed Auto-Generate d Referral 03/24/2023 04/22/2024 1 1 [facility] for visit Narrative* Diagnostic Procedure Only (Routine) - Closed Specialty Diagnoses / Procedures Referred By Contac t Referred To Contact [facility] Diagnoses Irregular bleeding Procedures PELVIC US WHI US PELVIC NONOBSTETRIC REAL-TIME IMAGE COMPLETE Edilma Sandhu, ERICKA.SUGAR REPROCESS OPERATOR HEAD [address] [place] [address] [facility] [address] [place] [address] Referral ID Status Reason Start Date Expiration Date Visits Requested Visits Authorized [id number] Closed Auto-Generated Referral OON Notification Letter Clearance Not Met - Admin/Wet Trimmer/D irector Advise to Postpone/Resched ule or Not Proceed Clearance Not Met - Pt Rescheduled/Canc elled/Chose Not to Proceed 05/29/2024 10/30/2024 1 1 [facility] Diagnostic Procedure Only (Urgent) - Closed Specialty Diagnoses / Procedures Referred By Contac t Referred To Contact [facility] Diagnoses Left foot pain Acute left ankle pain Procedures XR ANKLE GENERAL 3V AP/LAT/OBL LEFT RADEX ANKLE COMPLETE MINIMUM 3 VIEWS [facility] [address] [place] [address] [place] [address] Referral ID Status Reason Start Date Expiration Date V isits Requested Visits Authorized [id number] Closed Auto-Generate d Referral 03/24/2023 04/22/2024 1 1 [facility] Summary Purpose Family History No Family History Records Found Relationship Condition Age at Onset Recorded Date/T mirella mother Diabetes mellitus Unknown grandmother Hypertension Unknown Leukemia Unknown Advance Directives No Advanced Directives Records Found Advance Directive Response Recorded Date/ Time Living Will No November 10 5:31pm Power of Health Information Technologist No November 10, 2021 5:31pm Advance Directive Response Recorded Date/ Time Living Will No July 03 10:29pm Power of Health Information Technologist No July 03, 2022 10:29pm Advance Directive Response Recorded Date/ Time Living Will No September 24 8:12am Power of Health Information Technologist No September 24, 2022 8:12am Advance Directive Response Recorded Date/ Time Living Will No September 25 1:56pm Power of Health Information Technologist No September 25, 2022 1:56pm Advance Directive Response Recorded Date/ Time Living Will No November 26th, 2 022 2:56pm Power of Health Information Technologist No September 25, 2022 2:56pm Advance Directive Response Recorded Date/ Time Living Will No April 23, 2023 11:22am Power of Health Information Technologist No April 23 11:22am Advance Directive Response Recorded Date/ Time Living Will No December 31, 2023 10:15pm Power of Health Information Technologist No December 30 4 10:15pm Advance Directive Response Recorded Date/ Time Living Will No December 31, 2023 11:15pm Power of Health Information Technologist No December 30 4 11:15pm Advance Directive Response Recorded Date/ Time Living Will No January 29, 2024 6:18pm Power of Health Information Technologist No January 28 6:18pm Chief Complaint and Reason for Visit Chief Complaint Debility due to COVI D pneumonia with pronged intub DEBILITY DEBILITY DEBILITY DEBILITY DEBILITY Debility due to COVID pneumonia with pronged intub 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 RX HERE JAW PAIN 6 wk FU Reason for Visit Acquired left foot d rop Anemia Chronic anticoagulation DVT (deep venous thrombosis) Mass in chest Physical debility Physical deconditioning Post-COVID chronic cough Pulmonary HTN Anxiety with depression Hypoxemic respiratory failure, chronic Pulmonary fibrosis, postinflammatory Tachycardia Acute respiratory failure due to COVID-19 Hx of recurrent urinary tract infection Abnormal chest CT Asthma DVT (deep venous thrombosis) Post covid-19 condition, unspecified Hypoxemic respiratory failure, chronic Physical deconditioning Post covid-19 condition, unspecified Anxiety with depression Hypoxemic respiratory failure, chronic Tachycardia Dermatitis Sprain and strain of temporomandibular joint Anxiety with depression Pulmonary fibrosis, postinflammatory Tachycardia Abnormal chest CT Post covid-19 condition, unspecified Chronic hypoxemic respiratory failure Chief Complaint 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 RX HERE JAW PAIN [address] Reason for Visit Abnormal chest CT Asthma DVT (deep venous thrombosis) Post covid-19 condition, unspecified Hypoxemic respiratory failure, chronic Physical deconditioning Post covid-19 condition, unspecified Anxiety with depression Hypoxemic respiratory failure, chronic Tachycardia Dermatitis Sprain and strain of temporomandibular joint Anxiety with depression Pulmonary fibrosis, postinflammatory Tachycardia Abnormal chest CT Post covid-19 condition, unspecified Chronic hypoxemic respiratory failure Chief Complaint S/P COVID. RX HERE JAW PAIN 6 wk FU ABNORMAL CHEST CT 3 M FU MONO, DISCUSS DEPRESSION MEDS Reason for Visit Dermatitis Sprain and strain of temporomandibular joint Anxiety with depression Pulmonary fibrosis, postinflammatory Tachycardia Abnormal chest CT Post covid-19 condition, unspecified Chronic hypoxemic respiratory failure Abnormal chest CT 16 weeks gestation of Anxiety with depression Pharyngitis Chief Complaint 3 M FU MONO, DISCUSS DEPRESSION MEDS 6 wk FU SHORTNESS OF BREATH Reason for Visit Abnormal chest CT 16 weeks gestation of Anxiety with depression Pharyngitis Anxiety with depression 22 weeks gestation of Chief Complaint 3 M FU MONO, DISCUSS DEPRESSION MEDS 6 wk FU SHORTNESS OF BREATH concerns of pneumonia Reason for Visit Abnormal chest CT 16 weeks gestation of Anxiety with depression Pharyngitis Anxiety with depression 22 weeks gestation of Cough Sore throat Tonsillar enlargement Chief Complaint 6 wk FU SHORTNESS OF BREATH concerns of pneumonia follow up 02 INT LABS, RAD RULE OUT PRE E Reason for Visit Anxiety with depress ion 22 weeks gestation of Cough Sore throat Tonsillar enlargement Chronic hypoxemic respiratory failure Chief Complaint 6 wk FU SHORTNESS OF BREATH concerns of pneumonia follow up 02 INT LABS, RAD RULE OUT PRE E SOB Reason for Visit Anxiety with depress ion 22 weeks gestation of Cough Sore throat Tonsillar enlargement Chronic hypoxemic respiratory failure Chief Complaint concerns of pneumoni a follow up 02 INT LABS, RAD RULE OUT PRE E SOB mom low milk supply 2 M FU U09.9 - Post COVID-19 condition, unspecified U09.9 - Post COVID-19 condition, unspecified U09.9 - Post COVID-19 condition, unspecified U09.9 - Post COVID-19 condition, unspecified Reason for Visit Cough Sore throat Tonsillar enlargement Chronic hypoxemic respiratory failure Headache in Post covid-19 condition, unspecified Care and examination of lactating mother Other disorders of Care and examination of lactating mother Other disorders of Restrictive airway disease Chronic hypoxemic respiratory failure Chief Complaint follow up 02 INT LABS, RAD RULE OUT PRE E SOB mom low milk supply 2 M FU U09.9 - Post COVID-19 condition, unspecified U09.9 - Post COVID-19 condition, unspecified U09.9 - Post COVID-19 condition, unspecified U09.9 - Post COVID-19 condition, unspecified PPD 6 wk FU Reason for Visit Chronic hypoxemic re spiratory failure Headache in Post covid-19 condition, unspecified Care and examination of lactating mother Other disorders of Care and examination of lactating mother Other disorders of Restrictive airway disease Chronic hypoxemic respiratory failure Fatigue Post depression Asthma Daytime hypersomnia Hypoxemic respiratory failure, chronic Pulmonary fibrosis, postinflammatory Chief Complaint PPD 6 wk FU 2 W FU 6 wk FU 3 M FU HYPERSOMNIA BEOT; AUTO CPAP *DEVICE TAGGED Reason for Visit Fatigue Post depression Asthma Daytime hypersomnia Hypoxemic respiratory failure, chronic Pulmonary fibrosis, postinflammatory URI (upper respiratory infection) Post depression Post depression Asthma Restrictive airway disease Chronic hypoxemic respiratory failure Chief Complaint 6 wk FU 2 W FU 6 wk FU 3 M FU HYPERSOMNIA BETO; AUTO CPAP *DEVICE TAGGED follow up Reason for Visit Asthma Daytime hypersomnia Hypoxemic respiratory failure, chronic Pulmonary fibrosis, postinflammatory URI (upper respiratory infection) Post depression Post depression Asthma Restrictive airway disease Chronic hypoxemic respiratory failure Depression Chief Complaint 6 wk FU 3 M FU HYPERSOMNIA BETO; AUTO CPAP *DEVICE TAGGED follow up DIARRHEA Reason for Visit Post depressi on Asthma Restrictive airway disease Chronic hypoxemic respiratory failure Depression Chief Complaint 3 M FU COUGH, SOB Reason for Visit Anxiety with depress ion Asthma Physical deconditioning Chief Complaint COUGH, SOB physical 6 M FU Reason for Visit School physical exam Screening-pulmonary TB Asthma Obesity Restrictive airway disease Chief Complaint COUGH, SOB physical 6 M FU COUGH Reason for Visit School physical exam Screening-pulmonary TB Asthma Obesity Restrictive airway disease Chief Complaint Admit Date 6 m fu May 16, 2025 1:49 pm Reason for Visit Admit Date Preventative health care May 16, 2025 1:49pm Anxiety with depression May 16, 2025 1:49pm Asthma May 16, 2025 1:49 pm Morbid obesity May 16, 2025 1:49 pm Pulmonary fibrosis, postinflammatory Jared y 2024 1:49pm Reason for Referral Specialty Diagnoses / Procedures Referred By Susanna kwok Referred To Contact Diagnoses Encounter for care in first trimester of first Obesity in History of DVT (deep vein thrombosis) History of COVID-19 History of depression Tachycardia Procedures CONSULT TO MATERNAL MEDI OFFICE/OUTPATIENT [facility] MDM 60-74 MINUTES Christy Abdalla MD [address] [place] [address] Referral ID Status Reason Start Date Expiration Date Visits Requested Visits Authorized [id number] Authorized PCP Requested Referral Auto-Generate d Referral 03/15/2022 03/15/2023 1 1 Specialty Diagnoses / Procedures Referred By Contac t Referred To Contact [facility] Diagnoses Encounter for care in first trimester of first 9 weeks gestation of Procedures OBSTETRIC ULTRASOUND WHI US PREG UTERUS AFTER 1ST TRIMEST 1/ GESTATION Christy Abdalla MD [address] [place] [address] [facility] [address] [place] [address] Referral ID Status Reason Start Date Expiration Date Visits Requested Visits Authorized [id number] Pending Review Auto-Generat ed Referral 03/15/2022 03/15/2023 1 1 Specialty Diagnoses / Procedures Referred By Contac t Referred To Contact [facility] Diagnoses Encounter for care in first trimester of first 9 weeks gestation of Procedures NUCHAL TRANSLUCENCY WHI US NUCHAL TRANSLUCENCY 1ST GESTATION Christy Abdalla MD [address] [place] [address] [facility] [address] [place] [address] Referral ID Status Reason Start Date Expiration Date Visits Requested Visits Authorized [id number] Authorized Auto-Generat ed Referral 03/15/2022 03/15/2023 1 1 Health Concerns Problem Noted Date OB Reminders 03/15/2022 Problem Noted Date OB Reminders 03/15/2022 Problem Noted Date OB Reminders 03/15/2022 Problem Noted Date OB Reminders 03/15/2022 Problem Noted Date OB Reminders 03/15/2022 Problem Noted Date OB Reminders 03/15/2022 Problem Noted Date OB Reminders 03/15/2022 Problem Noted Date OB Reminders 03/15/2022 Problem Noted Date OB Reminders 03/15/2022 Problem Noted Date OB Reminders 03/15/2022 Problem Noted Date OB Reminders 03/15/2022 Problem Noted Date OB Reminders 03/15/2022 Problem Noted Date OB Reminders 03/15/2022 Problem Noted Date OB Reminders 03/15/2022 Problem Noted Date OB Reminders 03/15/2022 Problem Noted Date OB Reminders 03/15/2022 Problem Noted Date OB Reminders 03/15/2022 Problem Noted Date OB Reminders 03/15/2022 Problem Noted Date OB Reminders 03/15/2022 Problem Noted Date OB Reminders 03/15/2022 Problem Noted Date [employer]visor 10/03/2022 Problem Noted Date [employer] Supervisor 10/03/2022 Problem Noted Date [employer] Supervisor 10/03/2022 Problem Noted Date [employer] Supervisor 10/03/2022 Infection Onset Date Last Indicated Resolved Time COVID-19 Rule-Out 08/01/2023 08/01/2023 08/02/2023 5:14 AM EDT Medications Administered Section Inactive Administered Medications - up to 3 most recent administrations Medication Order MAR Action Action Date Dose Rate Site etonogestrel subdermal implant 68 mg (NEXPLANON) 68 mg, SUBDERMAL, ONCE (UP TO 30 DAYS AMB), 1 dose, On 12/06/22 at 1000, Hazardous Potential Reproductive Risk Drug: Use appropriate PPE. Must be inserted subdermally in the upper arm by a trained healthcare provider. Given 12/06/2022 10:13 AM EST 68 mg Arm, Left Additional Source Comments INFORMATION SOURCE (unrecogn ized section and content) DATE CREATED AUTHOR 07/01/2020 [facility] DATE CREATED AUTHOR AUTHOR'S ORGANIZ ATION 07/24/2021 [facility] ([place]) DATE CREATED AUTHOR AUTHOR'S ORGANIZ ATION 09/23/2021 [facility] DATE CREATED AUTHOR AUTHOR'S ORGANIZ ATION 04/16/2022 [facility] DATE CREATED AUTHOR AUTHOR'S ORGANIZ ATION 10/07/2022 [facility] DATE CREATED AUTHOR AUTHOR'S ORGANIZ ATION 03/12/2025 [facility] DATE CREATED AUTHOR AUTHOR'S ORGANIZ ATION 05/23/2025 [facility] Goals (unrecognized section and content) Goals may be documented in a n alternate sectionGoals may be documented in an alternate sectionGoals may be documented in an alternate sectionGoals may be documented in an alternate sectionGoals may be documented in an alternate sectionGoals may be documented in an alternate sectionGoals may be documented in an alternate sectionGoals may be documented in an alternate sectionGoals may be documented in an alternate sectionGoals may be documented in an alternate sectionGoals may be documented in an alternate sectionGoals may be documented in an alternate sectionGoals may be documented in an alternate sectionGoals may be documented in an alternate sectionGoals may be documented in an alternate sectionGoals may be documented in an alternate sectionGoals may be documented in an alternate sectionGoals may be documented in an alternate sectionGoals may be documented in an alternate sectionGoals may be documented in an alternate section Source Comments (unrecognize d section and content) In the event this informatio n is protected by the Federal Confidentiality of Alcohol and Drug Abuse Patient Records regulations: The Federal rules restrict any use of the information to criminally investigate or prosecute any alcohol or drug abuse patient.[facility] the event this information is protected by the Federal Confidentiality of Alcohol and Drug Abuse Patient Records regulations: The Federal rules restrict any use of the information to criminally investigate or prosecute any alcohol or drug abuse patient.[facility] HospitalIn the event this information is protected by the Federal Confidentiality of Alcohol and Drug Abuse Patient Records regulations: The Federal rules restrict any use of the information to criminally investigate or prosecute any alcohol or drug abuse patient.[facility] HospitalIn the event this information is protected by the Federal Confidentiality of Alcohol and Drug Abuse Patient Records regulations: The Federal rules restrict any use of the information to criminally investigate or prosecute any alcohol or drug abuse patient.[facility] HospitalIn the event this information is protected by the Federal Confidentiality of Alcohol and Drug Abuse Patient Records regulations: The Federal rules restrict any use of the information to criminally investigate or prosecute any alcohol or drug abuse patient.[facility] HospitalIn the event this information is protected by the Federal Confidentiality of Alcohol and Drug Abuse Patient Records regulations: The Federal rules restrict any use of the information to criminally investigate or prosecute any alcohol or drug abuse patient.[facility] HospitalIn the event this information is protected by the Federal Confidentiality of Alcohol and Drug Abuse Patient Records regulations: The Federal rules restrict any use of the information to criminally investigate or prosecute any alcohol or drug abuse patient.[facility] HospitalIn the event this information is protected by the Federal Confidentiality of Alcohol and Drug Abuse Patient Records regulations: The Federal rules restrict any use of the information to criminally investigate or prosecute any alcohol or drug abuse patient.[facility] HospitalIn the event this information is protected by the Federal Confidentiality of Alcohol and Drug Abuse Patient Records regulations: The Federal rules restrict any use of the information to criminally investigate or prosecute any alcohol or drug abuse patient.[facility] HospitalIn the event this information is protected by the Federal Confidentiality of Alcohol and Drug Abuse Patient Records regulations: The Federal rules restrict any use of the information to criminally investigate or prosecute any alcohol or drug abuse patient.[facility] HospitalIn the event this information is protected by the Federal Confidentiality of Alcohol and Drug Abuse Patient Records regulations: The Federal rules restrict any use of the information to criminally investigate or prosecute any alcohol or drug abuse patient.[facility] HospitalIn the event this information is protected by the Federal Confidentiality of Alcohol and Drug Abuse Patient Records regulations: The Federal rules restrict any use of the information to criminally investigate or prosecute any alcohol or drug abuse patient.[facility] HospitalIn the event this information is protected by the Federal Confidentiality of Alcohol and Drug Abuse Patient Records regulations: The Federal rules restrict any use of the information to criminally investigate or prosecute any alcohol or drug abuse patient.[facility] HospitalIn the event this information is protected by the Federal Confidentiality of Alcohol and Drug Abuse Patient Records regulations: The Federal rules restrict any use of the information to criminally investigate or prosecute any alcohol or drug abuse patient.[facility] HospitalIn the event this information is protected by the Federal Confidentiality of Alcohol and Drug Abuse Patient Records regulations: The Federal rules restrict any use of the information to criminally investigate or prosecute any alcohol or drug abuse patient.[facility] HospitalIn the event this information is protected by the Federal Confidentiality of Alcohol and Drug Abuse Patient Records regulations: The Federal rules restrict any use of the information to criminally investigate or prosecute any alcohol or drug abuse patient.[facility] HospitalIn the event this information is protected by the Federal Confidentiality of Alcohol and Drug Abuse Patient Records regulations: The Federal rules restrict any use of the information to criminally investigate or prosecute any alcohol or drug abuse patient.[facility] HospitalIn the event this information is protected by the Federal Confidentiality of Alcohol and Drug Abuse Patient Records regulations: The Federal rules restrict any use of the information to criminally investigate or prosecute any alcohol or drug abuse patient.[facility] HospitalIn the event this information is protected by the Federal Confidentiality of Alcohol and Drug Abuse Patient Records regulations: The Federal rules restrict any use of the information to criminally investigate or prosecute any alcohol or drug abuse patient.[facility] HospitalIn the event this information is protected by the Federal Confidentiality of Alcohol and Drug Abuse Patient Records regulations: The Federal rules restrict any use of the information to criminally investigate or prosecute any alcohol or drug abuse patient.[facility] HospitalIn the event this information is protected by the Federal Confidentiality of Alcohol and Drug Abuse Patient Records regulations: The Federal rules restrict any use of the information to criminally investigate or prosecute any alcohol or drug abuse patient.[facility] HospitalIn the event this information is protected by the Federal Confidentiality of Alcohol and Drug Abuse Patient Records regulations: The Federal rules restrict any use of the information to criminally investigate or prosecute any alcohol or drug abuse patient.[facility] HospitalIn the event this information is protected by the Federal Confidentiality of Alcohol and Drug Abuse Patient Records regulations: The Federal rules restrict any use of the information to criminally investigate or prosecute any alcohol or drug abuse patient.[facility] HospitalIn the event this information is protected by the Federal Confidentiality of Alcohol and Drug Abuse Patient Records regulations: The Federal rules restrict any use of the information to criminally investigate or prosecute any alcohol or drug abuse patient.[facility] HospitalIn the event this information is protected by the Federal Confidentiality of Alcohol and Drug Abuse Patient Records regulations: The Federal rules restrict any use of the information to criminally investigate or prosecute any alcohol or drug abuse patient.[facility] HospitalIn the event this information is protected by the Federal Confidentiality of Alcohol and Drug Abuse Patient Records regulations: The Federal rules restrict any use of the information to criminally investigate or prosecute any alcohol or drug abuse patient.[facility] HospitalIn the event this information is protected by the Federal Confidentiality of Alcohol and Drug Abuse Patient Records regulations: The Federal rules restrict any use of the information to criminally investigate or prosecute any alcohol or drug abuse patient.[facility] HospitalIn the event this information is protected by the Federal Confidentiality of Alcohol and Drug Abuse Patient Records regulations: The Federal rules restrict any use of the information to criminally investigate or prosecute any alcohol or drug abuse patient.[facility] HospitalIn the event this information is protected by the Federal Confidentiality of Alcohol and Drug Abuse Patient Records regulations: The Federal rules restrict any use of the information to criminally investigate or prosecute any alcohol or drug abuse patient.[facility] HospitalIn the event this information is protected by the Federal Confidentiality of Alcohol and Drug Abuse Patient Records regulations: The Federal rules restrict any use of the information to criminally investigate or prosecute any alcohol or drug abuse patient.[facility] HospitalIn the event this information is protected by the Federal Confidentiality of Alcohol and Drug Abuse Patient Records regulations: The Federal rules restrict any use of the information to criminally investigate or prosecute any alcohol or drug abuse patient.[facility] HospitalIn the event this information is protected by the Federal Confidentiality of Alcohol and Drug Abuse Patient Records regulations: The Federal rules restrict any use of the information to criminally investigate or prosecute any alcohol or drug abuse patient.[facility] HospitalIn the event this information is protected by the Federal Confidentiality of Alcohol and Drug Abuse Patient Records regulations: The Federal rules restrict any use of the information to criminally investigate or prosecute any alcohol or drug abuse patient.[facility] HospitalIn the event this information is protected by the Federal Confidentiality of Alcohol and Drug Abuse Patient Records regulations: The Federal rules restrict any use of the information to criminally investigate or prosecute any alcohol or drug abuse patient.[facility] HospitalIn the event this information is protected by the Federal Confidentiality of Alcohol and Drug Abuse Patient Records regulations: The Federal rules restrict any use of the information to criminally investigate or prosecute any alcohol or drug abuse patient.[facility] HospitalIn the event this information is protected by the Federal Confidentiality of Alcohol and Drug Abuse Patient Records regulations: The Federal rules restrict any use of the information to criminally investigate or prosecute any alcohol or drug abuse patient.[facility] HospitalIn the event this information is protected by the Federal Confidentiality of Alcohol and Drug Abuse Patient Records regulations: The Federal rules restrict any use of the information to criminally investigate or prosecute any alcohol or drug abuse patient.[facility] HospitalIn the event this information is protected by the Federal Confidentiality of Alcohol and Drug Abuse Patient Records regulations: The Federal rules restrict any use of the information to criminally investigate or prosecute any alcohol or drug abuse patient.[facility] HospitalIn the event this information is protected by the Federal Confidentiality of Alcohol and Drug Abuse Patient Records regulations: The Federal rules restrict any use of the information to criminally investigate or prosecute any alcohol or drug abuse patient.[facility] HospitalIn the event this information is protected by the Federal Confidentiality of Alcohol and Drug Abuse Patient Records regulations: The Federal rules restrict any use of the information to criminally investigate or prosecute any alcohol or drug abuse patient.[facility] HospitalIn the event this information is protected by the Federal Confidentiality of Alcohol and Drug Abuse Patient Records regulations: The Federal rules restrict any use of the information to criminally investigate or prosecute any alcohol or drug abuse patient.[facility] HospitalIn the event this information is protected by the Federal Confidentiality of Alcohol and Drug Abuse Patient Records regulations: The Federal rules restrict any use of the information to criminally investigate or prosecute any alcohol or drug abuse patient.[facility] HospitalIn the event this information is protected by the Federal Confidentiality of Alcohol and Drug Abuse Patient Records regulations: The Federal rules restrict any use of the information to criminally investigate or prosecute any alcohol or drug abuse patient.[facility] HospitalIn the event this information is protected by the Federal Confidentiality of Alcohol and Drug Abuse Patient Records regulations: The Federal rules restrict any use of the information to criminally investigate or prosecute any alcohol or drug abuse patient.[facility] HospitalIn the event this information is protected by the Federal Confidentiality of Alcohol and Drug Abuse Patient Records regulations: The Federal rules restrict any use of the information to criminally investigate or prosecute any alcohol or drug abuse patient.[facility] HospitalIn the event this information is protected by the Federal Confidentiality of Alcohol and Drug Abuse Patient Records regulations: The Federal rules restrict any use of the information to criminally investigate or prosecute any alcohol or drug abuse patient.[facility] HospitalIn the event this information is protected by the Federal Confidentiality of Alcohol and Drug Abuse Patient Records regulations: The Federal rules restrict any use of the information to criminally investigate or prosecute any alcohol or drug abuse patient.[facility] HospitalIn the event this information is protected by the Federal Confidentiality of Alcohol and Drug Abuse Patient Records regulations: The Federal rules restrict any use of the information to criminally investigate or prosecute any alcohol or drug abuse patient.[facility] Reason for Visit (unrecogniz ed section and content) Reason Comments Care Reason Comments Care Reason Comments Forms Reason Onset Date Comments Care 04/06/2022 Reason Comments US Specialty Diagnoses / Procedures Referred By Contac t [facility] Diagnoses Encounter for care in first trimester of first 9 weeks gestation of Procedures NUCHAL TRANSLUCENCY WHI US NUCHAL TRANSLUCENCY 1ST GESTATION Christy Abdalla MD [address] [facility] [place] [address] [address] Referral ID Status Reason Start Date Expiration Date V isits Requested Visits Authorized [id number] Closed Auto-Generate d Referral 03/15/2022 03/15/2023 1 1 Reason Comments First Seq Results Reason Onset Date Comments Care 05/04/2022 Reason Comments breast pump Reason Comments Consult Dr Abdalla Specialty Diagnoses / Procedures Referred By Contac t Referred To Contact [facility] Diagnoses 16 weeks gestation of Supervision of high risk in second trimester Obesity in Procedures OBSTETRIC ULTRASOUND WHI US PREG UTERUS AFTER 1ST TRIMEST GESTATION Ying Damico MD [address] [place] [address] [address] Referral ID Status Reason Start Date Expiration Date V isits Requested Visits Authorized [id number] Closed Auto-Generate d Referral 05/04/2022 05/04/2023 1 1 Reason Onset Date Comments Care 06/29/2022 Specialty Diagnoses / Procedures Referred By Contac t Referred To Contact [facility] Diagnoses 24 weeks gestation of High-risk in second trimester Procedures OBSTETRIC ULTRASOUND WHI US PREG UTERUS AFTER 1ST TRIMEST GESTATION Samara Woo MD [address] [place] [address] [address] Referral ID Status Reason Start Date Expiration Date V isits Requested Visits Authorized [id number] Closed Auto-Generate d Referral 06/29/2022 06/29/2023 1 1 Reason Onset Date Comments Care 07/27/2022 Reason Comments Orders 3 hour glucose Reason Comments Care US Specialty Diagnoses / Procedures Referred By Contac t Referred To Contact [facility] Diagnoses Obesity in 28 weeks gestation of Procedures OBSTETRIC ULTRASOUND WHI US PREG UTERUS AFTER 1ST TRIMEST GESTATION Praneeth Moreau MD [address] [place] [address] [address] Referral ID Status Reason Start Date Expiration Date V isits Requested Visits Authorized [id number] Closed Auto-Generate d Referral 07/27/2022 07/27/2023 1 1 Reason Onset Date Comments Care 08/24/2022 Reason Onset Date Comments Care 09/14/2022 Specialty Diagnoses / Procedures Referred By Contac t Referred To Contact [facility] Diagnoses COVID-19 long hauler manifesting chronic dyspnea Procedures OBSTETRIC ULTRASOUND WHI US PREG UTERUS AFTER 1ST TRIMEST GESTATION Praneeth Moreau MD [address] [place] [address] [id number] [place] [address] Referral ID Status Reason Start Date Expiration Date V isits Requested Visits Authorized [id number] Closed Auto-Generate d Referral 08/24/2022 08/24/2023 1 1 Reason Onset Date Comments Care 09/21/2022 Reason Comments cancelled c Section at [facility] Reason Onset Date Comments Care 09/28/2022 Reason Comments Preparations For Surgery Reason Onset Date Comments Anesthesia Consult 09/29/2022 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 Reason Comments Early Reason Comments Routine Reason Comments nexplanon insertion Specialty Diagnoses / Procedures Referred By Contac t Referred To Contact [facility] Diagnoses Nexplanon insertion Procedures NEXPLANON INSERTION ETONOGESTREL IMPLANT SYSTEM INSERT DRUG IMPLANT DEVICE Samara Woo MD [address] [place] [address] [address] Referral ID Status Reason Start Date Expiration Date V isits Requested Visits Authorized [id number] Closed Auto-Generate d Referral 11/19/2022 11/19/2023 1 1 Reason Comments Post-Op Visit Reason Comments Sore Throat Swollen tonsils x 3 days Reason Comments Ear Problem Bilateral pressure i n ears and tonsils feel enlarged x > 4 weeks Reason Comments Bleeding with Nexplanon Reason Comments Results Reason Comments Sore Throat X 3 days Reason Comments Orders Pelvic US WHI Insurance Authorization ONN Insurance/CC N Denied Reason Comments Cough Cough, congestion, S T, diarrhea and vomiting x 1 day Reason Comments Head Congestion chest congestion, co ugh and headache x 10 days Care Teams (unrecognized sec tion and content) Missile Facilities Repairer Relationship Specialty Start Date End Date Matt Mendoza MD [address] [place] [address] PCP - General Internal Medicine 09/29/22 Missile Facilities Repairer Relationship Specialty Start Date End Date Matt Mendoza MD [address] [place] [address] PCP - General Internal Medicine 09/29/22 Missile Facilities Repairer Relationship Specialty Start Date End Date Matt Mendoza MD [address] [place] [address] PCP - General Internal Medicine 09/29/22 Missile Facilities Repairer Relationship Specialty Start Date End Date Matt Mendoza MD [address] [place] [address] PCP - General Internal Medicine 09/29/22 Missile Facilities Repairer Relationship Specialty Start Date End Date Matt Mendoza MD [address] [place] [address] PCP - General Internal Medicine 09/29/22 Missile Facilities Repairer Relationship Specialty Start Date End Date Matt Mendoza MD [address] [place] [address] PCP - General Internal Medicine 09/29/22 Team Status: Active Member Role Status Dates Dr. Matt Mendoza MD Primary Care Provider Active Team Status: Inactive Member Role Status Dates Dr. Matt Mendoza MD Primary Care P rovider, Attending Provider, Referring Provider Active Team Status: Inactive Member Role Status Dates Dr. Matt Mendoza MD Primary Care Provider Active Santa Weinstein ACCOUNTS EXECUTIVE, ACCOUNTS EXECUTIVE-C Attending Provider, Referrin g Provider Active Team Status: Inactive Member Role Status Dates Dr. Matt Mendoza MD Primary Care Provider, Refer ring Provider Active Dr. Ric Lee DO Attending Provider Active Team Status: Inactive Member Role Status Dates Dr. Matt Mendoza MD Primary Care Provider, Refer ring Provider Active Christie Tello ACCOUNTS EXECUTIVE, ACCOUNTS EXECUTIVE-C Attending Provider Active Team Status: Active Member Role Status Dates Dr. Matt Mendoza MD Primary Care Provider Active Dr. Ric Lee DO Referring Provider, Other Provide r Active Dr. Ariel Harman MD Attending Provider Active Team Status: Active Member Role Status Dates Dr. Matt Mendoza MD Primary Care Provider Active Dr. Ric Lee DO Other Provider Active Dr. Ariel Harman MD Attending Provider Active Team Status: Inactive Member Role Status Dates Dr. Matt Mendoza MD Primary Care Provider Active Dr. Praneeth Moreau MD Attending Provider, Referring Pr ovider Active Team Status: Inactive Member Role Status Dates Dr. Matt Mendoza MD Primary Care Provider Active Dr. Huy Nicholson MD Attending Provider, Emergency Pro vider Active Team Status: Inactive Member Role Status Dates Dr. Matt Mendoza MD Primary Care Provider Active Dr. Ric Lee DO Attending Provider, Referring Pro vider Active Team Status: Active Member Role Status Dates Dr. Matt Mendoza MD Primary Care Provider Active Dr. Ric Lee DO Attending Provider Active Team Status: Inactive Member Role Status Dates Dr. Matt Mendoza MD Primary Care Provider Active Dr. Ric Lee DO Attending Provider Active Missile Facilities Repairer Relationship Specialty Start Date End Date Matt Mendoza MD [address] [place] [address] PCP - General Internal Medicine 09/29/22 Team Status: Inactive Member Role Status Dates Dr. Matt Mendoza MD Primary Care Provider, Refer ring Provider Active Santa Weinstein ACCOUNTS EXECUTIVE, ACCOUNTS EXECUTIVE-C Attending Provider Active Team Status: Inactive Member Role Status Dates Dr. Matt Mendoza MD Primary Care Provider, Refer ring Provider Active Kamini Salgado ACCOUNTS EXECUTIVE, ACCOUNTS EXECUTIVE-C Attending Provider Active Team Status: Inactive Member Role Status Dates Dr. Matt Mendoza MD Primary Care Provider Active Kamini Salgado ACCOUNTS EXECUTIVE, ACCOUNTS EXECUTIVE-C Attending Provider, Referring Prov ider Active Team Status: Inactive Member Role Status Dates Dr. Matt Mendoza MD Primary Care Provider Active Dr. Ganga Levy MD Attending Provider, Refe rring Provider Active Team Status: Inactive Member Role Status Dates Dr. Matt Mendoza MD Primary Care Provider Active Dr. Grant Maharaj DO Emergency Provider Active Missile Facilities Repairer Relationship Specialty Start Date End Date Matt Mendoza MD [address] [place] [address] PCP - General Internal Medicine 09/29/22 Missile Facilities Repairer Relationship Specialty Start Date End Date Matt Mendoza MD [address] [place] [address] PCP - General Internal Medicine 09/29/22 Missile Facilities Repairer Relationship Specialty Start Date End Date Matt Mendoza MD [address] [place] [address] PCP - General Internal Medicine 09/29/22 Missile Facilities Repairer Relationship Specialty Start Date End Date Matt Mendoza MD [address] [place] [address] PCP - General Internal Medicine 09/29/22 Team Status: Inactive Member Role Status Dates Dr. Matt Mendoza MD Primary Care Provider Active Dr. Macario Sage DO Emergency Provider Active Team Status: Inactive Member Role Status Dates Dr. Matt Mendoza MD Primary Care Provider, Atten ding Provider Active Team Status: Inactive Member Role Status Dates Dr. Matt Mendoza MD Primary Care Provider Active Dr. Macario Sage DO Attending Provider, Emergency Pr ovider Active Team Status: Active Member Role Status Dates Dr. Matt Mendoza MD Primary Care Provider, Atten ding Provider Active Team Status: Inactive Member Role Status Dates Dr. Matt Mendoza MD Primary Care Provider Active Dr. [place] MD Emergency Provider Active Missile Facilities Repairer Relationship Specialty Start Date End Date Matt Mendoza MD [address] [place] [address] PCP - General Internal Medicine 09/29/22 Missile Facilities Repairer Relationship Specialty Start Date End Date Matt Mendoza MD [address] [place] [address] PCP - General Internal Medicine 09/29/22 Missile Facilities Repairer Relationship Specialty Start Date End Date Matt Mendoza MD [address] [place] [address] PCP - General Internal Medicine 09/29/22 Missile Facilities Repairer Relationship Specialty Start Date End Date Matt Mendoza MD [address] [place] [address] PCP - General Internal Medicine 09/29/22 Missile Facilities Repairer Relationship Specialty Start Date End Date Matt Mendoza MD [address] [place] [address] PCP - General Internal Medicine 09/29/22 Missile Facilities Repairer Relationship Specialty Start Date End Date Matt Mendoza MD [address] [place] [address] PCP - General Internal Medicine 09/29/22 Missile Facilities Repairer Relationship Specialty Start Date End Date Matt Mendoza MD [address] [place] [address] PCP - General Internal Medicine 09/29/22 Missile Facilities Repairer Relationship Specialty Start Date End Date Matt Mendoza MD [address] [place] [address] PCP - General Internal Medicine 09/29/22 Team Status: Active Member Role/Relationship Status Dates Dr. Matt Mendoza MD Primary Care Provider Active Team Status: Inactive Member Role/Relationship Status Dates Dr. Matt Mendoza MD Primary Care Provider Active Start: May 16, 2025 End: May 16, 2025 Dr. Matt Mendoza MD Attending Provider Active Start: May 16, 2025 End: May 16, 2025 Dr. Matt Mendoza MD Referring Provider Active Start: May 16, 2025 End: May 16, 2025 Team Status: Inactive Member Role/Relationship Status Dates Dr. Matt Mendoza MD Primary Care Provider Active Start: May 16, 2025 End: May 16, 2025 Dr. Matt Mendoza MD Attending Provider Active Start: May 16, 2025 End: May 16, 2025 Dr. Matt Mendoza MD Referring Provider Active Start: May 16, 2025 End: May 16, 2025 FOR RECORDS PERTAINING TO PATIENTS WHO ARE OR HAVE BEEN ENROLLED IN A CHEMICAL DEPENDENCY/SUBSTANCEABUSE PROGRAM, SOME INFORMATION MAY BE OMITTED. This clinical summary was aggregated from multiple sources. Caution should be exercised in using it in the provision of clinical care. This summary normalizes information from multiple sources, and as a consequence, information in this document may materially change the coding, format and clinical context of patient data. In addition, data may be omitted in some cases. CLINICAL DECISIONS SHOULD BE BASED ON THE PRIMARY CLINICAL RECORDS. [facility] [employer] provides no warranty or guarantee of the accuracy or completeness of information in this document.
[2025-06-22 12:13] LABS: D-Dimer Quantitative (DVT/PE) 1.00 FEU/ug/m (0.27-0.49)
--- NOTE | 2025-06-22 12:16 | CT_ITS ---
PROCEDURE: CTA CHEST W/WO CONTRAST 06/22/2025 REASON FOR EXAM: ELEVATED D-DIMER TECHNIQUE: CTA CHEST W/WO CONTRAST Multiplanar Sagittal and Coronal images were obtained. CONTRAST: Isovue 370 VOLUME: 100 mL One or more dose reduction techniques were used (e.g., Automated exposure control, adjustment of the mA and/or kV according to patient size, use of iterative reconstruction technique). RADIATION DOSE SUMMARY: CTDlvol: 15.83 mGy DLP: 514.42 mGycm COMPARISON: CTA chest July 03, 2020. # of known CTs in the past 12 months: 0 # of known Cardiac Nuclear Medicine Studies in the past 12 months: 0 FINDINGS: Thoracic Aorta: No aneurysm. No dissection. Heart: No cardiomegaly. Pulmonary Vessels: No pulmonary embolism. Hardware: None. Lymph nodes: No lymphadenopathy. Lungs and Airways: Diffuse streaky and ground-glass densities in the lungs may represent pneumonia or pneumonitis. Pleura: No pleural effusion or pneumothorax. Upper Abdomen: Unremarkable. Bones: Acute bony abnormalities. CT/CTA Chest W/WO Contrast IMPRESSION: No evidence of pulmonary embolism. Diffuse streaky and ground-glass densities in the lungs may represent pneumonia or pneumonitis. Reading Location: [id number]
[2025-06-22 12:32] LABS: Reactive Lymphocyte RARE
[2025-06-22 12:38] LABS: Internal QC Validated? YES +Cl - CLEAR BKGD; Pregnancy, Serum, hCG Quali. NEGATIVE Negative; Record Kit Lot#, Serum Preg. 964736
[2025-06-22] MEDS: 0.9% Normal Saline (1000mL) 1,000 ML 1000 ML IV (12:40)
[2025-06-22 12:48] LABS: Anion Gap 13 (5-15); BUN 13 mg/dL (4-19); BUN/Creat Ratio 14.2 RATIO (10-20); Calcium,Total 9.3 mg/dL (7.6-11.0); Carbon Dioxide 21.4 mmol/L (21.0-32.0); Chloride 104 mmol/L (98-108); Estimated Creatinine Clearance 139.84 ml/min (50-250); Glucose 113 mg/dL (70-99); Potassium 3.8 mmol/L (3.3-5.1)
[2025-06-22 12:53] VITALS: BP 130/76; BP 137/96; BP 138/77; PULSE 95; PULSE 97
[2025-06-22 13:03] LABS: Mucous, Urine 0 SEEN /hpf (<or=2+); Red Blood Cells-Urine 0 SEEN /hpf (0-5)
[2025-06-22 13:04] LABS: Color, Urine Yellow (Yellow); Glucose, Dipstick Normal (Normal); Ketone-Dipstick Negative (Negative); Leukocyte Esterase-Dipstick 25 /ul (Negative); Nitrite-Dipstick Negative (Negative); Occult Blood-Urine 250 /ul (Negative); Protein-Dipstick 15 mg/dl (Negative); Specific Gravity, Urine 1.015 (1.002-1.030); Urine Bilirubin Dipstick Negative (Negative)
[2025-06-22 13:11] LABS: Squamous Epithelial Cells - UA 5-10 SEEN /hpf (5-10)
[2025-06-22 14:19] VITALS: BP 135/77; PULSE 82; RESP 14; TEMP 36.7; O2SAT 98
== END 2025-06-22 14:20 | disposition home or self-care (01) ==
PROVIDERS: Emergency Provider Emergency Medicine; PCP Internal Medicine; Visit Provider Emergency Medicine
DX: R06.02 Shortness of breath (principal); R00.0 Tachycardia, unspecified; R10.9 Unspecified abdominal pain; R79.89 Other specified abnormal findings of blood chemistry
CPT/HCPCS: 71045; 71275; 80048; 81001; 84703; 85025; 85379; 93005; 96360; 96361; 99285; Q9967; A4216